=== PATIENT | male | born 1970 | race Caucasian/White ===

== ENCOUNTER 2021-11-04 14:03 | Outpatient (CLI) | payer MEDICARE, OTHER, SELFPAY | END 2021-11-04 14:04 | disposition home or self-care (01) | LOC: AMB 11-10 11:17 | PROVIDERS: Visit Provider Family Medicine | DX: R10.9 Unspecified abdominal pain (principal) | CPT/HCPCS: A0425; A0427 ==

== ENCOUNTER 2021-11-23 18:59 | Emergency (ER) | payer MEDICARE, OTHER, SELFPAY | END 2021-11-23 20:51 | disposition left against medical advice (07) | PROVIDERS: Emergency Provider Family Medicine | DX: Z53.21 Procedure and treatment not carried out due to patient leaving prior to being seen by health care provider (principal) | CPT/HCPCS: 99281 ==

== ENCOUNTER 2021-11-25 13:00 | Outpatient (CLI) | payer MEDICARE, OTHER, SELFPAY | END 2021-11-25 13:01 | disposition home or self-care (01) | LOC: AMB 12-09 12:48 | PROVIDERS: Visit Provider Family Medicine | DX: R10.9 Unspecified abdominal pain (principal) | CPT/HCPCS: A0425; A0433 ==

== ENCOUNTER 2021-12-25 09:05 | Outpatient (CLI) | payer MEDICARE, OTHER, SELFPAY | END 2021-12-25 09:06 | disposition home or self-care (01) | LOC: AMB 12-27 16:40 | PROVIDERS: Visit Provider Family Medicine | DX: R10.9 Unspecified abdominal pain (principal) | CPT/HCPCS: A0425; A0433 ==

== ENCOUNTER 2021-12-26 23:07 | Outpatient (CLI) | payer MEDICARE, OTHER, SELFPAY | END 2021-12-26 23:08 | disposition home or self-care (01) | LOC: AMB 12-29 05:30 | PROVIDERS: Visit Provider Family Medicine | DX: R07.89 Other chest pain (principal) | CPT/HCPCS: A0425; A0427 ==

== ENCOUNTER 2021-12-26 23:30 | Emergency (ER) | payer MEDICARE, OTHER, SELFPAY ==
[2021-12-26 23:36] VITALS: BP 153/89; PULSE 82; RESP 18; TEMP 36.4; O2SAT 100
--- NOTE | 2021-12-27 00:01 | ED.CHESTPAIN ---
HPI - Chest Pain General Chief Complaint: Chest Pain Stated Complaint: chest pain Time Seen by Provider: 12/26/21 23:48 History of Present Illness HPI narrative: 51-year-old man presenting to the emergency department via EMS with complaint of left-sided chest pain. This was relatively sudden onset. Sharp pain. He had taken some lorazepam earlier in the day but did not think that really helped. Sounds as though this was taken for anxiety but not chest pain at that time. With his episode of pain subsequently his heart started beating really fast which he would associate with exacerbating anxiety. He took hydroxyzine and feels like it settled down now but still present. When he had 1 big shock of pain he had gone to talk to his son to call for the ambulance. Recently diagnosed with Clostridium difficile. Underlying history of renal failure with dialysis fistula which he thinks might actually be the cause of his pain. Has had pain complaints related to his fistula before. He has had historically pain in this left upper chest blamed apparently on scar tissue from procedures in the vicinity. This pain is more than maybe he has experienced before. No known cardiovascular disease he says. Feels better to push on it. Not actually short of breath. Pain is not clearly pleuritic. While I am examining him he is reporting shocks of pain from the left upper outer chest to the shoulder at times. Does not feel like he needs anything more for pain or anxiety but thought he should just be cautious regarding his heart. Related Data Home Medications Medication Instructions Recorded Confirmed amlodipine 10 mg tablet mg 12/26/21 atorvastatin 40 mg tablet mg 12/26/21 cyclobenzaprine 10 mg tablet mg 12/26/21 diclofenac sodium 1 % topical gel topical 12/26/21 ferric citrate 210 mg iron tablet 12/26/21 (Auryxia) fidaxomicin 200 mg tablet (Dificid) mg 12/26/21 fluoxetine 10 mg capsule mg 12/26/21 hydroxyzine pamoate 25 mg capsule mg 12/26/21 lidocaine-prilocaine 2.5 %-2.5 % 12/26/21 topical cream lorazepam 0.5 mg tablet mg 12/26/21 metoclopramide HCl 5 mg tablet mg 12/26/21 metoprolol tartrate 25 mg tablet mg 12/26/21 ondansetron 8 mg disintegrating mg 12/26/21 tablet oxycodone 5 mg tablet mg 12/26/21 polyethylene glycol 3350 17 g 12/26/21 gram/dose oral powder sennosides 8.6 mg tablet (Suyapa-ulysses) mg 12/26/21 sevelamer carbonate 800 mg tablet mg 12/26/21 vancomycin 125 mg capsule mg 12/26/21 vit B,C-folic ac 800 mcg-zinc 12.5 tab 12/26/21 mg-selen-D3 2,000 unit-vit E tablet (RenaPlex-D) Allergies Allergy/AdvReac Type Severity Reaction Status Date / Time lisinopril Allergy Severe angioedema Verified 12/27/21 02:40 Penicillins Allergy Unknown Verified 12/27/21 02:40 hydromorphone [From Dilaudid] AdvReac nausea/vomi Verified 12/27/21 02:40 ting Review of Systems Status of ROS Reports: 10 or more systems reviewed and unremarkable except as noted in History and below [facility] Medical History (Updated 12/27/21 @ 02:49 by Arthur Tanner MD) Abdominal pain Anxiety and depression Bilateral hip pain Chronic abdominal pain Chronic constipation Chronic pain of both shoulders Chronic thoracic back pain Enteritis ESRD on hemodialysis GERD (gastroesophageal reflux disease) Hematemesis History of colon cancer, stage III Hypertension Lumbar foraminal stenosis Malignant neoplasm of sigmoid colon Peripheral polyneuropathy Schmorl's node Secondary hyperparathyroidism (of renal origin) Spinal stenosis, lumbar region without neurogenic claudication Spondylosis of lumbar region without myelopathy or radiculopathy Type 2 diabetes, diet controlled Surgical History History of cholecystectomy History of colectomy Social History Smoking Status: Unknown if ever smoked Do you use any of these nicotine containing products: None How often do you have a drink containing alcohol: never How often do you have six or more drinks on one occasion: Never AUDIT-C Alcohol total score: 0 Non-prescribed substance use: marijuana (any form) Exam Narrative Exam Narrative: Breathing easily. Speaking easily. Wincing holding his left axillary chest with his right hand. Lungs appear to be clear. Skin with well-healed surgical scars in the area of pain. He has good pulses peripherally. Moving all extremities without difficulty. There is no edema. No erythema or swelling discretely. Fistula appears normal. Cardiovascular with regular rate and rhythm Const Vital Signs, click to edit/add: Vital Signs - 24 hr 12/26/21 23:36 12/27/21 01:17 Temperature 97.5 F L 97.5 F L Pulse Rate [Pulse Oximeter] 82 79 Respiratory Rate 18 18 Blood Pressure [153] 153/89 H 142/80 H Pulse Oximetry 100 100 Oxygen Delivery Method Room Air Room Air Documenting provider has reviewed patient's vital signs: yes Course Course Hospital Course: Slept during time in the emergency department. Had noted that he did not need anything for nausea or pain or anxiety. Vital Signs Vital signs: Initial Vital Signs Temperature 97.5 F L 12/26/21 23:36 Temperature Source Temporal Artery Scan 12/26/21 23:36 Pulse Rate 82 12/26/21 23:36 Pulse Rhythm 12/26/21 23:36 Respiratory Rate 18 12/26/21 23:36 Blood Pressure 153/89 H 12/26/21 23:36 Blood Pressure Mean 110 12/26/21 23:36 Blood Pressure Position Sitting 12/26/21 23:36 Pulse Oximetry 100 12/26/21 23:36 Oxygen Delivery Method 12/26/21 23:36 Vital Signs Temperature 97.5 F L 12/26/21 23:36 Pulse Rate 82 12/26/21 23:36 Respiratory Rate 18 12/26/21 23:36 Blood Pressure 153/89 H 12/26/21 23:36 Pulse Oximetry 100 12/26/21 23:36 Oxygen Delivery Method 12/26/21 23:36 Temperature 97.5 F L 12/27/21 06:46 Pulse Rate 79 12/27/21 06:46 Respiratory Rate 18 12/27/21 06:46 Blood Pressure 135/70 12/27/21 06:46 Pulse Oximetry 100 12/27/21 06:46 Oxygen Delivery Method 12/27/21 06:46 MDM - Chest Pain MDM Narrative Medical decision making narrative: Slept here. Repeat troponin still 0. EKG similar to prior. Medical Records Data Attestation: I reviewed the patient's medical records. Lab Data Attestation: I reviewed the patient's lab results. Labs: Lab Results 12/27/21 12/27/21 12/27/21 Range/Units 00:25 00:25 00:25 WBC 8.97 (4.50-11.00) K/uL RBC 2.97 L (4.30-5.90) m/uL Hgb 9.4 L (13.5-17.5) gm/dL Hct 29.3 L (37.0-53.0) % MCV 99 (80-100) fL MCH 32 (26-34) pg MCHC 32 (32-36) gm/dL RDW Coeff of Mike 13.9 (11.5-15.5) % Plt Count 172 (140-440) K/uL Neut % (Auto) 73.5 H (42.0-72.0) % Lymph % (Auto) 14.7 L (20-44) % [place] % (Auto) 8.2 (0.0-11.0) % Eos % (Auto) 2.9 (0.0-7.0) % Baso % (Auto) 0.4 (0.0-3.0) % Neut # (Auto) 6.60 (1.7-7.0) K/uL Lymph # (Auto) 1.30 (0.90-2.90) K/uL [place] # (Auto) 0.70 (0.00-0.90) K/UL Eos # (Auto) 0.26 (0.00-0.50) K/uL Baso # (Auto) 0.04 (0.00-0.30) K/uL Abs Immat Gran (auto) 0.03 (0.00-0.30) K/uL Sodium 135 (135-149) mmol/L Potassium 4.7 (3.6-5.1) mmol/L Chloride 96 (96-114) mmol/L Carbon Dioxide 32 (20-32) mmol/L BUN 31 H (7-30) mg/dL Creatinine 9.2 H (0.5-1.5) mg/dL Estimated GFR 6 ml/min Glucose 105 (60-115) mg/dL Calcium 9.6 (8.4-10.6) mg/dL Troponin I < 0.01 L (0.01-0.04) ng/mL C-Reactive Protein < 0.5 L (0.5-1.0) mg/dL POC Troponin I (0.01-0.04) ng/ml 12/27/21 12/27/21 Range/Units 00:25 02:18 WBC (4.50-11.00) K/uL RBC (4.30-5.90) m/uL Hgb (13.5-17.5) gm/dL Hct (37.0-53.0) % MCV (80-100) fL MCH (26-34) pg MCHC (32-36) gm/dL RDW Coeff of Mike (11.5-15.5) % Plt Count (140-440) K/uL Neut % (Auto) (42.0-72.0) % Lymph % (Auto) (20-44) % [place] % (Auto) (0.0-11.0) % Eos % (Auto) (0.0-7.0) % Baso % (Auto) (0.0-3.0) % Neut # (Auto) (1.7-7.0) K/uL Lymph # (Auto) (0.90-2.90) K/uL [place] # (Auto) (0.00-0.90) K/UL Eos # (Auto) (0.00-0.50) K/uL Baso # (Auto) (0.00-0.30) K/uL Abs Immat Gran (auto) (0.00-0.30) K/uL Sodium (135-149) mmol/L Potassium (3.6-5.1) mmol/L Chloride (96-114) mmol/L Carbon Dioxide (20-32) mmol/L BUN (7-30) mg/dL Creatinine (0.5-1.5) mg/dL Estimated GFR ml/min Glucose (60-115) mg/dL Calcium (8.4-10.6) mg/dL Troponin I (0.01-0.04) ng/mL C-Reactive Protein (0.5-1.0) mg/dL POC Troponin I 0.00 L 0.00 L (0.01-0.04) ng/ml Imaging Data Chest x-ray: Attestation: I have reviewed the pertinent imaging results. My impression: wnl ECG Data Attestation: I personally reviewed and interpreted this ECG as follows: (Normal sinus. Looks like an evolving right bundle branch block. Rate of 80) Discharge Plan Discharge Clinical Impression: Chest wall pain, Anxiety attack Patient Disposition: Home w/ Parent or Adult Condition: Improved Additional Instructions: Follow-up with nephrology as discussed to review fistula. Prescriptions: No Action cyclobenzaprine 10 mg tablet Label Comments: TAKE 1 TABLET (10 MG) BY MOUTH 3 TIMES DAILY IF NEEDED FOR MUSCLE SPASM. atorvastatin 40 mg tablet Label Comments: TAKE ONE TABLET BY MOUTH AT BEDTIME sennosides [Suyapa-ulysses] 8.6 mg tablet Label Comments: TAKE 1 TABLET (8.6 MG) BY MOUTH 2 TIMES DAILY. vancomycin 125 mg capsule Label Comments: TAKE ONE CAPSULE BY MOUTH FOUR TIMES A DAY ondansetron 8 mg tablet,disintegrating Label Comments: PLACE 1 TABLET (8MG) ON THE TONGUE EVERY 8 HOURS IF NEEDED FOR NAUSEA/VOMITING. lidocaine-prilocaine 2.5-2.5 % cream Label Comments: APPLY SMALL AMOUNT TO ACCESS SITE (AVF) 1 TO 2 HOURS BEFORE DIALYSIS. COVER WITH OCCLUSIVE DRESSING (SARAN WRAP) lorazepam 0.5 mg tablet Label Comments: TAKE ONE TABLET BY MOUTH ON DIALYSIS DAYS AND CAN TAKE TAKE ONE TABLET TWICE A DAY NEEDED ON NON-DIALYSIS DAYS FOR ANXIETY metoclopramide HCl 5 mg tablet Label Comments: TAKE 1 TABLET (5 MG) BY MOUTH EVERY 6 HOURS IF NEEDED FOR NAUSEA/VOMITING. amlodipine 10 mg tablet Label Comments: TAKE ONE TABLET BY MOUTH ONCE DAILY fluoxetine 10 mg capsule Label Comments: TAKE 1 CAPSULE (10 MG) BY MOUTH ONCE DAILY. polyethylene glycol 3350 17 gram/dose powder Label Comments: MIX 1 SCOOP (17 G) IN LIQUID THEN TAKE BY MOUTH 2 TIMES DAILY IF NEEDED FOR CONSTIPATION. oxycodone 5 mg tablet hydroxyzine pamoate 25 mg capsule Label Comments: TAKE 1-2 CAPSULES (25-50 MG) BY MOUTH EVERY 6 HOURS IF NEEDED. metoprolol tartrate 25 mg tablet Label Comments: TAKE ONE TABLET BY MOUTH TWICE A DAY. ON DIALYSIS DAYS TAKE THIS AFTERWARDS sevelamer carbonate 800 mg tablet Label Comments: TAKE 4 TABLETS BY MOUTH THREE TIMES DAILY WITH MEALS AND 3 TABLETS TWICE DAILY WITH SNACKS diclofenac sodium 1 % gel TOPICAL Label Comments: APPLY 2 G TOPICALLY TO AFFECTED AREA(S) 4 TIMES DAILY. Dificid 200 mg tablet Label Comments: TAKE ONE TABLET BY MOUTH TWICE A DAY FOR 10 DAYS Auryxia 210 mg iron tablet Label Comments: TAKE 2 TABLETS BY MOUTH THREE TIMES A DAY WITH MEALS AND 1 TABLET TWICE A DAY WITH SNACKS. SWALLOW WHOLE, DO NOT CHEW OR CRUSH MEDICATION RenaPlex-D 800 mcg-12.5 mg -2,000 unit tablet Label Comments: TAKE 1 TABLET BY MOUTH EVERY DAY WITH THE EVENING MEAL Follow Up/Referrals: Provider,Not a Local [Primary Care Provider] - Stand Alone Forms: [facility] Info Instructions
--- NOTE | 2021-12-27 00:05 | CRLHL7_ITS ---
For Patients: As a result of the Century Cures Act, medical imaging exams and procedure reports are released immediately into your electronic medical record. You may view this report before your referring provider. If you have questions, please contact your health care provider. INDICATION: Chest pain. TECHNIQUE: Chest 1 view. COMPARISON: 04/30/2020. FINDINGS: Cardiovascular and mediastinum: Heart size and vasculature are normal in caliber and appearance. Lungs and pleural spaces: Lungs are clear. No sign of infiltrate or mass. No sign of pleural effusion. No pneumothorax. Bones and soft tissues: No significant findings. IMPRESSION: Negative chest. Dictated by Rodo Beckman MD @ 12/27/2021 12:35:47 AM (Electronically Signed)
[2021-12-27 00:34] LABS: Basophils Absolute Auto 0.04 K/uL (0.00-0.30); Basophils Percent Auto 0.4 % (0.0-3.0); Eosinophils Absolute Auto 0.26 K/uL (0.00-0.50); Eosinophils Percent Auto 2.9 % (0.0-7.0); Hematocrit 29.3 % (37.0-53.0); Hemoglobin* 9.4 gm/dL (13.5-17.5); Immature Granulocytes Abs Auto 0.03 K/uL (0.00-0.30); Lymphocytes Percent Auto 14.7 % (20-44); Mean Corpuscular HGB Conc 32 gm/dL (32-36); Mean Corpuscular Hemoglobin 32 pg (26-34); Mean Corpuscular Volume 99 fL (80-100); Monocytes Percent Auto 8.2 % (0.0-11.0); Neutrophils Percent Auto 73.5 % (42.0-72.0); Platelet Count* 172 K/uL (140-440); RDW Coefficient of Variation % 13.9 % (11.5-15.5); Red Blood Count 2.97 m/uL (4.30-5.90); White Blood Count* 8.97 K/uL (4.50-11.00)
[2021-12-27 00:38] LABS: Slide Review Reflex No
[2021-12-27 00:49] LABS: Chloride* 96 mmol/L (96-114); Potassium* 4.7 mmol/L (3.6-5.1); Sodium* 135 mmol/L (135-149)
[2021-12-27 00:51] LABS: Creatinine* 9.2 mg/dL (0.5-1.5); Estimated Glomerular Filt Rate 6 ml/min
[2021-12-27 00:52] LABS: Blood Urea Nitrogen* 31 mg/dL (7-30); Calcium* 9.6 mg/dL (8.4-10.6); Carbon Dioxide* 32 mmol/L (20-32); Glucose* 105 mg/dL (60-115)
[2021-12-27 01:00] LABS: C Reactive Protein* < 0.5 mg/dL (0.5-1.0)
[2021-12-27 01:17] VITALS: BP 142/80; PULSE 79; RESP 18; TEMP 36.4; O2SAT 100
[2021-12-27 01:24] LABS: Troponin I* < 0.01 ng/mL (0.01-0.04)
[2021-12-27 02:33] VITALS: BMI 22.3
[2021-12-27 06:46] VITALS: BP 135/70; PULSE 74; PULSE 79; RESP 18; TEMP 36.4; O2SAT 100
--- NOTE | 2021-12-27 07:08 | ED.NURSE ---
Report from JASMIN Guerra. Patient needs discharge instructions and a ride home. Patient sleeping on cot.
--- NOTE | 2021-12-27 07:37 | ED.NURSE ---
Marge called for patient to provide ride home. Patient leaves ED ambulatory, plan to follow up for fistulagram with lead sales consultant. No questions/concerns.
== END 2021-12-27 07:38 | disposition home or self-care (01) ==
PROVIDERS: Emergency Provider Family Medicine
DX: R07.89 Other chest pain (principal); F41.9 Anxiety disorder, unspecified
CPT/HCPCS: 36415; 71045; 80048; 84484; 85025; 86140; 93005; 99283

== ENCOUNTER 2022-03-05 12:53 | Outpatient (CLI) | payer MEDICARE, OTHER, SELFPAY | END 2022-03-05 12:54 | disposition home or self-care (01) | LOC: AMB 04-06 15:45 | PROVIDERS: Visit Provider Family Medicine | DX: R10.9 Unspecified abdominal pain (principal) | CPT/HCPCS: A0425; A0433 ==

== ENCOUNTER 2022-04-26 15:40 | Outpatient (CLI) | payer MEDICARE, OTHER, SELFPAY | END 2022-04-26 15:41 | disposition home or self-care (01) | LOC: AMB 04-30 12:02 | PROVIDERS: Visit Provider Family Medicine | DX: Z49.01 Encounter for fitting and adjustment of extracorporeal dialysis catheter (principal) | CPT/HCPCS: A0425; A0427 ==

== ENCOUNTER 2022-04-26 15:53 | Emergency (ER) | payer MEDICARE, OTHER, SELFPAY ==
[2022-04-26] VITALS (8 sets, daily range): BP systolic 157–171; BP diastolic 86–97; PULSE 68–80; RESP 18–20; TEMP 36.4; O2SAT 97–98; BMI 22.9
--- NOTE | 2022-04-26 16:10 | ED.NURSE ---
did look at fistula under dressing. bleeding started again and redressed with a coban and 4 by 4.
--- NOTE | 2022-04-26 16:10 | ED.NURSE ---
did redress fistula with 4 by 4 and coban. did spurt blood when looked at it. elevated left arm on pillows. was very anxious and wanted bp and anxiety med.
--- NOTE | 2022-04-26 16:12 | ED_ITS ---
HPI - Wound/Laceration General Time Seen by Provider: 16:12 Date Seen: 04/26/22 Chief Complaint: Laceration/Wound Stated Complaint: Bleeding Time Seen by Provider: 04/26/22 16:12 Source: patient, RN notes reviewed and old records reviewed Mode of arrival: ambulatory Limitations: no limitations History of Present Illness HPI narrative: Vik is a very pleasant 52-year-old gentleman currently on dialysis last dialysis this morning also with a history of hypertension and anxiety who comes to the emergency room for evaluation of bleeding from his fistula. Patient was noted to have had the onset of bleeding while coming home from dialysis. This has been ongoing and I did not initially see him on presentation but nursing states that he had blood squirting across the room. A pressure dressing has been placed at this time. Patient notes that he thinks this is likely because his blood pressure is elevated and he did not take his metoprolol or amlodipine this morning. He states that his anxiety is also increasing his blood pressure and he request Ativan 1 mg p.o. he has not had any fevers or chills. This has not happened to him in the past. He is feeling somewhat lightheaded. No shortness of breath. Related Data Home Medications Medication Instructions Recorded Confirmed amlodipine 10 mg tablet 10 mg PO DAILY 12/26/21 04/26/22 atorvastatin 40 mg tablet 40 mg PO DAILY 12/26/21 04/26/22 cyclobenzaprine 10 mg tablet 10 mg PO TID PRN 12/26/21 04/26/22 diclofenac sodium 1 % topical gel topical 12/26/21 ferric citrate 210 mg iron tablet 2 tab PO TID 12/26/21 04/26/22 (Auryxia) hydroxyzine pamoate 25 mg capsule 25 mg PO Q6-12H PRN 12/26/21 04/26/22 lidocaine-prilocaine 2.5 %-2.5 % 1 applic topical DAILY 12/26/21 04/26/22 topical cream lorazepam 0.5 mg tablet 0.5 mg PO Q12H PRN 12/26/21 04/26/22 metoprolol tartrate 25 mg tablet 25 mg PO Q12H 12/26/21 04/26/22 ondansetron 8 mg disintegrating 8 mg PO Q8H PRN 12/26/21 04/26/22 tablet oxycodone 5 mg tablet 5 mg PO PRN 12/26/21 polyethylene glycol 3350 17 17 g PO DAILY PRN 12/26/21 04/26/22 gram/dose oral powder sennosides 8.6 mg tablet (Suyapa-ulysses) 8.6 mg PO DAILY PRN 12/26/21 04/26/22 sevelamer carbonate 800 mg tablet 2,400 mg PO TID 12/26/21 04/26/22 vancomycin 125 mg capsule mg 12/26/21 vit B,C-folic ac 800 mcg-zinc 12.5 1 tab PO DAILY 12/26/21 04/26/22 mg-selen-D3 2,000 unit-vit E tablet (RenaPlex-D) Allergies Allergy/AdvReac Type Severity Reaction Status Date / Time lisinopril Allergy Severe angioedema Verified 12/27/21 02:40 Penicillins Allergy Unknown Verified 12/27/21 02:40 hydromorphone [From Dilaudid] AdvReac nausea/vomi Verified 12/27/21 02:40 ting Review of Systems Status of ROS: Reports: 6 or more systems reviewed and unremarkable except as noted in History and below Const: Denies: fever or chills Eyes: Denies: change in vision ENMT: Denies: difficulty swallowing Cardio: Reports: lightheadedness; Denies: chest pain, palpitations or shortness of breath with exertion Resp: Denies: shortness of breath or cough GI: Denies: abdominal pain, vomiting or difficulty swallowing PFSH PFSH Medical History Abdominal pain Anxiety and depression Bilateral hip pain Chronic abdominal pain Chronic constipation Chronic pain of both shoulders Chronic thoracic back pain Enteritis ESRD on hemodialysis GERD (gastroesophageal reflux disease) Hematemesis History of colon cancer, stage III Hypertension Lumbar foraminal stenosis Malignant neoplasm of sigmoid colon Peripheral polyneuropathy Schmorl's node Secondary hyperparathyroidism (of renal origin) Spinal stenosis, lumbar region without neurogenic claudication Spondylosis of lumbar region without myelopathy or radiculopathy Type 2 diabetes, diet controlled Surgical History History of cholecystectomy History of colectomy Social History Smoking Status: Unknown if ever smoked Do you use any of these nicotine containing products: None How often do you have a drink containing alcohol: never How often do you have six or more drinks on one occasion: Never AUDIT-C Alcohol total score: 0 Non-prescribed substance use: marijuana (any form) service: No Exam Narrative: Exam Narrative: Patient is alert and oriented. He is nontoxic in appearance. He has a pressure dressing over his left lower humerus. Patient noted to have visual pulsations of the fistula both proximal and distal to pressure dressing. He has palpable pulses distally to that. There is dried blood coming from beneath the bandage but I do not see any active oozing at this time. Heart with a regular rate and rhythm and lungs are clear bilaterally. Mentating normally. Moving all extremities. Const: Vital Signs, click to edit/add: Vital Signs - 24 hr 04/26/22 16:01 04/26/22 17:12 Temperature 97.6 F Pulse Rate 71 Pulse Rate [Pulse Oximeter] 80 Respiratory Rate 20 Blood Pressure [Ri ght Upper Arm] 163/94 H Pulse Oximetry 97 98 Oxygen Delivery Me thod Room Air Documenting provider has reviewed patient's vital signs: yes Course Course Hospital Course: Patient requests Ativan 1 mg. Initially request 0.5 but states they recently increased his amount 1 mg. Also requests his dose of amlodipine 10 mg and metoprolol 25 mg as he has not taken that yet today. Will check labs including a CBC, comprehensive panel and INR. Vital Signs Vital signs: Initial Vital Signs Temperature 97.6 F 04/26/22 16:01 Temperature Source Temporal Artery Scan 04/26/22 16:01 Pulse Rate 80 04/26/22 16:01 Respiratory Rate 20 04/26/22 16:01 Blood Pressure 163/94 H 04/26/22 16:01 Blood Pressure Mean 117 04/26/22 16:01 Pulse Oximetry 97 04/26/22 16:01 Oxygen Delivery Method 04/26/22 16:01 Vital Signs Temperature 97.6 F 04/26/22 16:01 Pulse Rate 80 04/26/22 16:01 Respiratory Rate 20 04/26/22 16:01 Blood Pressure 163/94 H 04/26/22 16:01 Pulse Oximetry 97 04/26/22 16:01 Oxygen Delivery Method 04/26/22 16:01 Temperature 97.6 F 04/26/22 16:01 Pulse Rate 71 04/26/22 17:12 Respiratory Rate 20 04/26/22 16:01 Blood Pressure 163/94 H 04/26/22 16:01 Pulse Oximetry 98 04/26/22 17:12 Oxygen Delivery Method 04/26/22 16:01 MDM - Wound/Laceration MDM Narrative Medical decision making narrative: 1. Dialysis site bleeding-pressure dressing in place. At this time no further bleeding. I hesitate to remove this bandage at this time because it has stop the bleeding. Distally his capillary refill is intact as is his pulse. I would recommend leaving this dressing in place. He may remove it later on tonight or 1st thing tomorrow morning but I would do that gently. He is to return to the emergency room for worsening symptoms. 2. Hypertension-will give amlodipine 10 mg, metoprolol 25 mg and Ativan 1 mg p.o.. 3. Disposition-home. Medical Records Attestation: I reviewed the patient's medical records. Lab Data Attestation: I reviewed the patient's lab results. Labs: Lab Results 04/26/22 04/26/22 04/26/22 Range/Units 16:43 16:43 16:43 WBC 6.47 (4.50-11.00) K/uL RBC 3.78 L (4.30-5.90) m/uL Hgb 12.1 L (13.5-17.5) gm/dL Hct 37.7 (37.0-53.0) % MCV 100 (80-100) fL MCH 32 (26-34) pg MCHC 32 (32-36) gm/dL RDW Coeff of Mike 14.6 (11.5-15.5) % Plt Count 167 (140-440) K/uL Neut % (Auto) 68.4 (42.0-72.0) % Lymph % (Auto) 19.3 L (20-44) % [place] % (Auto) 9.0 (0.0-11.0) % Eos % (Auto) 2.6 (0.0-7.0) % Baso % (Auto) 0.5 (0.0-3.0) % Neut # (Auto) 4.43 (1.7-7.0) K/uL Lymph # (Auto) 1.20 (0.90-2.90) K/uL [place] # (Auto) 0.60 (0.00-0.90) K/UL Eos # (Auto) 0.17 (0.00-0.50) K/uL Baso # (Auto) 0.03 (0.00-0.30) K/uL INR 0.90 L (0.91-1.10) Sodium 139 (135-149) mmol/L Potassium 5.0 (3.6-5.1) mmol/L Chloride 104 (96-114) mmol/L Carbon Dioxide 27 (20-32) mmol/L BUN 20 (7-30) mg/dL Creatinine 7.8 H (0.5-1.5) mg/dL Estimated Creat Clear 9.75 Estimated GFR 8 ml/min Glucose 87 (60-115) mg/dL Calcium 9.2 (8.4-10.6) mg/dL Total Bilirubin 0.6 (0.1-1.5) mg/dL AST 41 H (12-35) U/L ALT 33 (4-50) U/L Alkaline Phosphatase 114 (40-150) U/L Total Protein 7.5 (6.0-8.3) g/dL Albumin 4.7 (3.3-5.0) g/dL Discharge Plan Discharge Clinical Impression: Dialysis AV fistula malfunction Patient Disposition: Home, Self-Care Condition: Improved Additional Instructions: Leave pressure dressing in place. If you feel that your arm is tingling or not getting enough circulation you may gently remove this bandage tonight. Otherwise leave in place until tomorrow morning and then gently remove it. Seek medical attention for worsening symptoms and ongoing bleeding. Return to the emergency room as needed. Prescriptions: No Action cyclobenzaprine 10 mg tablet 10 mg PO TID PRN Label Comments: TAKE 1 TABLET (10 MG) BY MOUTH 3 TIMES DAILY IF NEEDED FOR MUSCLE SPASM. atorvastatin 40 mg tablet 40 mg PO DAILY Label Comments: TAKE ONE TABLET BY MOUTH AT BEDTIME sennosides [Suyapa-ulysses] 8.6 mg tablet 8.6 mg PO DAILY PRN Label Comments: TAKE 1 TABLET (8.6 MG) BY MOUTH 2 TIMES DAILY. vancomycin 125 mg capsule Label Comments: TAKE ONE CAPSULE BY MOUTH FOUR TIMES A DAY ondansetron 8 mg tablet,disintegrating 8 mg PO Q8H PRN Label Comments: PLACE 1 TABLET (8MG) ON THE TONGUE EVERY 8 HOURS IF NEEDED FOR NAUSEA/VOMITING. lidocaine-prilocaine 2.5-2.5 % cream 1 applic topical DAILY Label Comments: APPLY SMALL AMOUNT TO ACCESS SITE (AVF) 1 TO 2 HOURS BEFORE DIALYSIS. COVER WITH OCCLUSIVE DRESSING (SARAN WRAP) lorazepam 0.5 mg tablet 0.5 mg PO Q12H PRN Label Comments: TAKE ONE TABLET BY MOUTH ON DIALYSIS DAYS AND CAN TAKE TAKE ONE TABLET TWICE A DAY NEEDED ON NON-DIALYSIS DAYS FOR ANXIETY amlodipine 10 mg tablet 10 mg PO DAILY Label Comments: TAKE ONE TABLET BY MOUTH ONCE DAILY polyethylene glycol 3350 17 gram/dose powder 17 g PO DAILY PRN Label Comments: MIX 1 SCOOP (17 G) IN LIQUID THEN TAKE BY MOUTH 2 TIMES DAILY IF NEEDED FOR CONSTIPATION. oxycodone 5 mg tablet 5 mg PO PRN hydroxyzine pamoate 25 mg capsule 25 mg PO Q6-12H PRN Label Comments: TAKE 1-2 CAPSULES (25-50 MG) BY MOUTH EVERY 6 HOURS IF NEEDED. metoprolol tartrate 25 mg tablet 25 mg PO Q12H Label Comments: TAKE ONE TABLET BY MOUTH TWICE A DAY. ON DIALYSIS DAYS TAKE THIS AFTERWARDS sevelamer carbonate 800 mg tablet 2,400 mg PO TID Label Comments: TAKE 4 TABLETS BY MOUTH THREE TIMES DAILY WITH MEALS AND 3 TABLETS TWICE DAILY WITH SNACKS diclofenac sodium 1 % gel TOPICAL Label Comments: APPLY 2 G TOPICALLY TO AFFECTED AREA(S) 4 TIMES DAILY. Auryxia 210 mg iron tablet 2 tab PO TID Label Comments: TAKE 2 TABLETS BY MOUTH THREE TIMES A DAY WITH MEALS AND 1 TABLET TWICE A DAY WITH SNACKS. SWALLOW WHOLE, DO NOT CHEW OR CRUSH MEDICATION RenaPlex-D 800 mcg-12.5 mg -2,000 unit tablet 1 tab PO DAILY Label Comments: TAKE 1 TABLET BY MOUTH EVERY DAY WITH THE EVENING MEAL Follow Up/Referrals: Provider,Not a Local [Referring] - Stand Alone Forms: [facility] Info Instructions
[2022-04-26] MEDS: LORazepam 1 MG TABLET PO (16:23)
[2022-04-26] MEDS: METOPROLOL TARTRATE 25 MG TABLET PO (16:23)
[2022-04-26] MEDS: AMLODIPINE 10 MG TABLET PO (16:28)
[2022-04-26 16:51] LABS: Basophils Absolute Auto 0.03 K/uL (0.00-0.30); Basophils Percent Auto 0.5 % (0.0-3.0); Eosinophils Absolute Auto 0.17 K/uL (0.00-0.50); Eosinophils Percent Auto 2.6 % (0.0-7.0); Hematocrit 37.7 % (37.0-53.0); Hemoglobin* 12.1 gm/dL (13.5-17.5); Immature Granulocytes Abs Auto 0.01 K/uL (0.00-0.30); Immature Granulocytes Pct Auto 0.2 %; Lymphocytes Percent Auto 19.3 % (20-44); Mean Corpuscular HGB Conc 32 gm/dL (32-36); Mean Corpuscular Hemoglobin 32 pg (26-34); Mean Corpuscular Volume 100 fL (80-100); Neutrophils Absolute Auto 4.43 K/uL (1.7-7.0); Neutrophils Percent Auto 68.4 % (42.0-72.0); Platelet Count* 167 K/uL (140-440); RDW Coefficient of Variation % 14.6 % (11.5-15.5); Red Blood Count 3.78 m/uL (4.30-5.90); White Blood Count* 6.47 K/uL (4.50-11.00)
[2022-04-26 16:55] LABS: Slide Review Reflex No
[2022-04-26 17:01] LABS: Albumin* 4.7 g/dL (3.3-5.0); Chloride* 104 mmol/L (96-114); Sodium* 139 mmol/L (135-149)
[2022-04-26 17:03] LABS: Creatinine* 7.8 mg/dL (0.5-1.5); Est. Creatinine Clearance* 9.75; Estimated Glomerular Filt Rate 8 ml/min
[2022-04-26 17:04] LABS: Alanine Aminotransferase* 33 U/L (4-50); Alkaline Phosphatase* 114 U/L (40-150); Aspartate Amino Transferase* 41 U/L (12-35); Bilirubin Total* 0.6 mg/dL (0.1-1.5); Blood Urea Nitrogen* 20 mg/dL (7-30); Calcium* 9.2 mg/dL (8.4-10.6); Carbon Dioxide* 27 mmol/L (20-32); Glucose* 87 mg/dL (60-115); Prothrombin Time 12.7 Seconds; Total Protein* 7.5 g/dL (6.0-8.3)
--- NOTE | 2022-04-26 18:00 | ED.NURSE ---
did loosen the tight pressure dressing and no bleeding noted. wants to go home. son is here. anxious to go home/
== END 2022-04-26 18:00 | disposition home or self-care (01) ==
PROVIDERS: Emergency Provider Family Medicine
DX: T82.590A Other mechanical complication of surgically created arteriovenous fistula, initial encounter (principal); I10 Essential (primary) hypertension
CPT/HCPCS: 36415; 80053; 85025; 85610; 99283; 99284; A9270

== ENCOUNTER 2022-05-26 18:02 | Outpatient (CLI) | payer MEDICARE, OTHER, SELFPAY | END 2022-05-26 18:03 | disposition home or self-care (01) | LOC: AMB 06-08 03:42 | PROVIDERS: Visit Provider Family Medicine | DX: R07.89 Other chest pain (principal) | CPT/HCPCS: A0425; A0427 ==

== ENCOUNTER 2022-05-26 18:34 | Emergency (ER) | payer MEDICARE, OTHER, SELFPAY ==
[2022-05-26] VITALS (8 sets, daily range): BP systolic 115–154; BP diastolic 64–87; PULSE 67–91; RESP 16–18; TEMP 36.6–36.9; O2SAT 99
--- NOTE | 2022-05-26 19:01 | XR_ITS ---
Patient: JETT FARRAR Facility:?[facility] Patient ID:?[id number] Site Patient ID:?[id number]. Site :?[id number] Study:?XRay-Chest PORTABLE-05/26/2022 7:15:03 PM Ordering Physician:?UNKNOWN UNKNOWN Final Report: INDICATION: Question her failure or worsening edema. TECHNIQUE: Chest 1 views. COMPARISON: Radiograph 12/27/2021. FINDINGS: Cardiovascular and mediastinum: Heart size and vasculature are normal in caliber and appearance. Lungs and pleural spaces: Pulmonary vasculature is within normal limits. No sign of infiltrate or mass. No sign of pleural effusion. No pneumothorax. Bones and soft tissues: No significant findings. IMPRESSION: No acute findings and no significant changes from the prior exam. Dictated by Faisal Elizabeth MD @ 05/26/2022 7:31:42 PM Signed by:?Faisal Elizabeth MD @05/26/2022 7:31:42 PM (Electronic Signature)
--- NOTE | 2022-05-26 19:04 | ED.GENADULT ---
HPI - General Adult General Time Seen by Provider: 19:04 <Rafat Caba MD - Last Filed: 05/27/22 09:57> Date Seen: 05/26/22 <Rafat Caba MD - Last Filed: 05/27/22 09:57> Chief complaint: Chest Pain <Rafat Caba MD - Last Filed: 05/27/22 09:57> Stated complaint: Chest Pain <Rafat Caba MD - Last Filed: 05/27/22 09:57> Time Seen by Provider: 05/26/22 18:49 <Rafat Caba MD - Last Filed: 05/27/22 09:57> Source: patient <Rafat Caba MD - Last Filed: 05/27/22 09:57> Mode of arrival: EMS <Rafat Caba MD - Last Filed: 05/27/22 09:57> History of Present Illness HPI narrative: Vik is a 52-year-old male past medical history includes end-stage renal disease on dialysis Tuesday, Tuesday and Tuesday and Anabela, hypertension, depression and anxiety presents emerged department via EMS with chest pain. Patient states he had dialysis this morning, he had a good run, he came home ate and had a nap, he woke up around 1 hour ago with some left-sided chest pain, he is out of his Ativan at home, he has had anxiety attacks in the past but never has chest pain with it. Patient denies any shortness of breath, cough fevers or chills, he has not had any nausea vomiting, lightheadedness or dizziness. No history of any CAD or stroke. He smokes 1 cigarette per day. Pain is sharp, no changes with inspiration, no radiation. No other concerns at this time. <Rafat Caba MD - Last Filed: 05/27/22 09:57> Related Data Home medications: Home Medications Medication Instructions Recorded Confirmed amlodipine 10 mg tablet 10 mg PO DAILY 12/26/21 04/26/22 atorvastatin 40 mg tablet 40 mg PO DAILY 12/26/21 04/26/22 cyclobenzaprine 10 mg tablet 10 mg PO TID PRN 12/26/21 04/26/22 diclofenac sodium 1 % topical gel topical 12/26/21 ferric citrate 210 mg iron tablet 2 tab PO TID 12/26/21 04/26/22 (Auryxia) hydroxyzine pamoate 25 mg capsule 25 mg PO Q6-12H PRN 12/26/21 04/26/22 lidocaine-prilocaine 2.5 %-2.5 % 1 applic topical DAILY 12/26/21 04/26/22 topical cream lorazepam 0.5 mg tablet 0.5 mg PO Q12H PRN 12/26/21 04/26/22 metoprolol tartrate 25 mg tablet 25 mg PO Q12H 12/26/21 04/26/22 ondansetron 8 mg disintegrating 8 mg PO Q8H PRN 12/26/21 04/26/22 tablet oxycodone 5 mg tablet 5 mg PO PRN 12/26/21 polyethylene glycol 3350 17 17 g PO DAILY PRN 12/26/21 04/26/22 gram/dose oral powder sennosides 8.6 mg tablet (Suyapa-ulysses) 8.6 mg PO DAILY PRN 12/26/21 04/26/22 sevelamer carbonate 800 mg tablet 2,400 mg PO TID 12/26/21 04/26/22 vancomycin 125 mg capsule mg 12/26/21 vit B,C-folic ac 800 mcg-zinc 12.5 1 tab PO DAILY 12/26/21 04/26/22 mg-selen-D3 2,000 unit-vit E tablet (RenaPlex-D) <Rafat Caba MD - Last Filed: 05/27/22 09:57> Allergies/adverse reactions: Allergies Allergy/AdvReac Type Severity Reaction Status Date / Time lisinopril Allergy Severe angioedema Verified 12/27/21 02:40 Penicillins Allergy Unknown Verified 12/27/21 02:40 hydromorphone [From Dilaudid] AdvReac nausea/vomi Verified 12/27/21 02:40 ting <Rafat Caba MD - Last Filed: 05/27/22 09:57> Review of Systems Status of ROS: Reports: 10 or more systems reviewed and unremarkable except as noted in History and below <Rafat Caba MD - Last Filed: 05/27/22 09:57> [facility] Medical History: Medical History Abdominal pain Anxiety and depression Bilateral hip pain Chronic abdominal pain Chronic constipation Chronic pain of both shoulders Chronic thoracic back pain Enteritis ESRD on hemodialysis GERD (gastroesophageal reflux disease) Hematemesis History of colon cancer, stage III Hypertension Lumbar foraminal stenosis Malignant neoplasm of sigmoid colon Peripheral polyneuropathy Schmorl's node Secondary hyperparathyroidism (of renal origin) Spinal stenosis, lumbar region without neurogenic claudication Spondylosis of lumbar region without myelopathy or radiculopathy Type 2 diabetes, diet controlled <Rafat Caba MD - Last Filed: 05/27/22 09:57> Surgical History: Surgical History History of cholecystectomy History of colectomy <Rafat Caba MD - Last Filed: 05/27/22 09:57> Social History: Social History Smoking Status: Unknown if ever smoked Do you use any of these nicotine containing products: None How often do you have a drink containing alcohol: never How often do you have six or more drinks on one occasion: Never AUDIT-C Alcohol total score: 0 Non-prescribed substance use: marijuana (any form) <Rafat Caba MD - Last Filed: 05/27/22 09:57> Exam Narrative: Exam Narrative: General: Patient is in mild distress sitting comfortably, nontoxic in appearance HEENT: Oral mucosa is moist, Lungs: Clear to auscultation bilaterally, no wheezing, or crackles. Heart: Normal sinus rhythm S1-S2 : Muscle skeletal : Dialysis fistula left Abdomen: Soft, nontender, bowel sounds present :Neuro awake and oriented x3 <Rafat Caba MD - Last Filed: 05/27/22 09:57> Const: Vital Signs, click to edit/add: Vital Signs - 24 hr 05/26/22 18:40 05/26/22 21:53 05/26/22 18:45 Temperature 97.8 F 97.8 F Pulse Rate [Right Pulse Oximeter] 91 81 Respiratory Rate 18 16 Blood Pressure [Ri ght Upper Arm] 154/87 H 139/77 Pulse Oximetry 99 99 Oxygen Delivery Me thod Room Air Room Air 05/26/22 19:00 05/26/22 20:00 05/26/22 21:00 Temperature Pulse Rate [Right Pulse Oximeter] 82 67 69 Respiratory Rate 18 18 18 Blood Pressure [Ri ght Upper Arm] 140/82 H 115/64 123/70 Pulse Oximetry 99 99 99 Oxygen Delivery Me thod Room Air Room Air Room Air 05/26/22 22:00 05/26/22 22:04 Temperature 98.4 F 98.4 F Pulse Rate [Right Pulse Oximeter] 71 71 Respiratory Rate 16 16 Blood Pressure [Ri ght Upper Arm] 120/70 120/70 Pulse Oximetry 99 Oxygen Delivery Me thod Room Air <Rafat Caba MD - Last Filed: 05/27/22 09:57> Vital Signs, click to edit/add: Vital Signs - 24 hr 05/26/22 18:40 05/26/22 21:53 05/26/22 18:45 Temperature 97.8 F 97.8 F Pulse Rate [Right Pulse Oximeter] 91 81 Respiratory Rate 18 16 Blood Pressure [Ri ght Upper Arm] 154/87 H 139/77 Pulse Oximetry 99 99 Oxygen Delivery Me thod Room Air Room Air 05/26/22 19:00 05/26/22 20:00 05/26/22 21:00 Temperature Pulse Rate [Right Pulse Oximeter] 82 67 69 Respiratory Rate 18 18 18 Blood Pressure [Ri ght Upper Arm] 140/82 H 115/64 123/70 Pulse Oximetry 99 99 99 Oxygen Delivery Me thod Room Air Room Air Room Air 05/26/22 22:00 05/26/22 22:04 Temperature 98.4 F 98.4 F Pulse Rate [Right Pulse Oximeter] 71 71 Respiratory Rate 16 16 Blood Pressure [Ri ght Upper Arm] 120/70 120/70 Pulse Oximetry 99 Oxygen Delivery Me thod Room Air <Gerald David MD - Last Filed: 05/26/22 21:52> Course Course Hospital Course: 7:00 PM: AIDET performed, workup will include IV peripheral, 0.5 mg IV Ativan, EKG at bedside shows a normal sinus rhythm with a left axis deviation, bpm 75, no ectopy or acute ST changes compared to previous, will obtain CBC, CMP and a portable chest x-ray. Plan to rule out any acute changes, likely rule out cardiac causes with 2 troponin levels, seems less likely ACS, from history more related to anxiety. Differential diagnosis include but not limited to IA/CAD, heart failure, costochondritis, pneumothorax, pneumonia, bronchitis, DVT, PE, aortic dissection as well as all etiologies. 7:45 PM: Patient is feeling better after above care given, pain is improved, vitals have been stable, still awaiting lab results, imaging showed no acute cardiopulmonary process. Will continue to monitor. <Rafat Caba MD - Last Filed: 05/27/22 09:57> Reevaluation(s) Reevaluation #1: Patient is signed over to me by for follow-up of 2nd troponin, EKG, 2nd troponin is 0 also. Done greater than 90 minutes after the 1st. EKG shows no acute changes. I did ask the nurse to do a COVID test on Mr. Thakkar to ensure that he does not have COVID, we can call him if it is positive, and tell him the treatment that we would suggest at that point. His vital signs remained stable, he is not tachycardic, he does not have any chest pain currently. Alert and oriented x3, vital signs remain normal, chest is clear bilaterally heart sounds are normal his abdomen is soft he is able to move all extremities. He is sweating, which makes me think he may be coming down with something. That is the reason that we did do a COVID swab on him. At this point, I think sending him home was a reasonable option. The re-presented here further issues or signs. <Gerald David MD - Last Filed: 05/26/22 21:52> Time: 21:50 <Gerald David MD - Last Filed: 05/26/22 21:52> Vital Signs Vital signs: Initial Vital Signs Temperature 97.8 F 05/26/22 18:40 Temperature Source Temporal Artery Scan 05/26/22 18:40 Pulse Rate 91 05/26/22 18:40 Respiratory Rate 18 05/26/22 18:40 Blood Pressure 154/87 H 05/26/22 18:40 Blood Pressure Mean 109 05/26/22 18:40 Blood Pressure Position Sitting 05/26/22 18:40 Pulse Oximetry 99 05/26/22 18:40 Oxygen Delivery Method 05/26/22 18:40 Vital Signs Temperature 97.8 F 05/26/22 18:40 Pulse Rate 91 05/26/22 18:40 Respiratory Rate 18 05/26/22 18:40 Blood Pressure 154/87 H 05/26/22 18:40 Pulse Oximetry 99 05/26/22 18:40 Oxygen Delivery Method 05/26/22 18:40 Temperature 98.4 F 05/26/22 22:04 Pulse Rate 71 05/26/22 22:04 Respiratory Rate 16 05/26/22 22:04 Blood Pressure 120/70 05/26/22 22:04 Pulse Oximetry 99 05/26/22 22:00 Oxygen Delivery Method 05/26/22 22:00 <Rafat Caba MD - Last Filed: 05/27/22 09:57> Initial Vital Signs Temperature 97.8 F 05/26/22 18:40 Temperature Source Temporal Artery Scan 05/26/22 18:40 Pulse Rate 91 05/26/22 18:40 Respiratory Rate 18 05/26/22 18:40 Blood Pressure 154/87 H 05/26/22 18:40 Blood Pressure Mean 109 05/26/22 18:40 Blood Pressure Position Sitting 05/26/22 18:40 Pulse Oximetry 99 05/26/22 18:40 Oxygen Delivery Method 05/26/22 18:40 Vital Signs Temperature 97.8 F 05/26/22 18:40 Pulse Rate 91 05/26/22 18:40 Respiratory Rate 18 05/26/22 18:40 Blood Pressure 154/87 H 05/26/22 18:40 Pulse Oximetry 99 05/26/22 18:40 Oxygen Delivery Method 05/26/22 18:40 Temperature 98.4 F 05/26/22 22:04 Pulse Rate 71 05/26/22 22:04 Respiratory Rate 16 05/26/22 22:04 Blood Pressure 120/70 05/26/22 22:04 Pulse Oximetry 99 05/26/22 22:00 Oxygen Delivery Method 05/26/22 22:00 <Gerald David MD - Last Filed: 05/26/22 21:52> Medical Decision Making MDM Narrative Medical decision making narrative: During the evaluation of this patient I considered multiple differential diagnosis is. The life-threatening differential diagnosis include coronary disease/IA, pulmonary embolism, pneumothorax, pneumonia, and aortic dissection. Other differential diagnosis included but were not limited to pericarditis, myocarditis, chest wall pain, GERD, esophageal rupture, rib fracture contusion, pleurisy, as well as other etiologies. <Gerald David MD - Last Filed: 05/26/22 21:52> Lab Data Labs: Lab Results 05/26/22 05/26/22 05/26/22 Range/Units 18:50 18:50 20:56 WBC 6.81 (4.50-11.00) K/uL RBC 3.28 L (4.30-5.90) m/uL Hgb 10.3 L (13.5-17.5) gm/dL Hct 32.6 L (37.0-53.0) % MCV 99 (80-100) fL MCH 31 (26-34) pg MCHC 32 (32-36) gm/dL RDW Coeff of Mike 14.4 (11.5-15.5) % Plt Count 203 (140-440) K/uL Neut % (Auto) 66.9 (42.0-72.0) % Lymph % (Auto) 18.6 L (20-44) % [place] % (Auto) 11.7 H (0.0-11.0) % Eos % (Auto) 2.1 (0.0-7.0) % Baso % (Auto) 0.3 (0.0-3.0) % Neut # (Auto) 4.55 (1.7-7.0) K/uL Lymph # (Auto) 1.30 (0.90-2.90) K/uL [place] # (Auto) 0.80 (0.00-0.90) K/UL Eos # (Auto) 0.14 (0.00-0.50) K/uL Baso # (Auto) 0.02 (0.00-0.30) K/uL Sodium 138 (135-149) mmol/L Potassium 5.0 (3.6-5.1) mmol/L Chloride 105 (96-114) mmol/L Carbon Dioxide 26 (20-32) mmol/L BUN 12 (7-30) mg/dL Creatinine 5.5 H (0.5-1.5) mg/dL Estimated GFR 12 ml/min Glucose 75 (60-115) mg/dL Calcium 9.0 (8.4-10.6) mg/dL Total Bilirubin 0.5 (0.1-1.5) mg/dL AST 66 H (12-35) U/L ALT 42 (4-50) U/L Alkaline Phosphatase 121 (40-150) U/L Troponin I < 0.01 L < 0.01 L (0.01-0.04) ng/mL Total Protein 7.1 (6.0-8.3) g/dL Albumin 4.3 (3.3-5.0) g/dL SARS-CoV-2 (PCR) (Negative) Influenza Type A (PCR) (Negative) Influenza Type B (PCR) (Negative) 05/26/22 Range/Units 21:42 WBC (4.50-11.00) K/uL RBC (4.30-5.90) m/uL Hgb (13.5-17.5) gm/dL Hct (37.0-53.0) % MCV (80-100) fL MCH (26-34) pg MCHC (32-36) gm/dL RDW Coeff of Mike (11.5-15.5) % Plt Count (140-440) K/uL Neut % (Auto) (42.0-72.0) % Lymph % (Auto) (20-44) % [place] % (Auto) (0.0-11.0) % Eos % (Auto) (0.0-7.0) % Baso % (Auto) (0.0-3.0) % Neut # (Auto) (1.7-7.0) K/uL Lymph # (Auto) (0.90-2.90) K/uL [place] # (Auto) (0.00-0.90) K/UL Eos # (Auto) (0.00-0.50) K/uL Baso # (Auto) (0.00-0.30) K/uL Sodium (135-149) mmol/L Potassium (3.6-5.1) mmol/L Chloride (96-114) mmol/L Carbon Dioxide (20-32) mmol/L BUN (7-30) mg/dL Creatinine (0.5-1.5) mg/dL Estimated GFR ml/min Glucose (60-115) mg/dL Calcium (8.4-10.6) mg/dL Total Bilirubin (0.1-1.5) mg/dL AST (12-35) U/L ALT (4-50) U/L Alkaline Phosphatase (40-150) U/L Troponin I (0.01-0.04) ng/mL Total Protein (6.0-8.3) g/dL Albumin (3.3-5.0) g/dL SARS-CoV-2 (PCR) Negative SARS-CoV-2 (Negative) Influenza Type A (PCR) Negative PCR FLU A (Negative) Influenza Type B (PCR) Negative PCR FLU B (Negative) <Rafat Caba MD - Last Filed: 05/27/22 09:57> Lab Results 05/26/22 05/26/22 05/26/22 Range/Units 18:50 18:50 20:56 WBC 6.81 (4.50-11.00) K/uL RBC 3.28 L (4.30-5.90) m/uL Hgb 10.3 L (13.5-17.5) gm/dL Hct 32.6 L (37.0-53.0) % MCV 99 (80-100) fL MCH 31 (26-34) pg MCHC 32 (32-36) gm/dL RDW Coeff of Mike 14.4 (11.5-15.5) % Plt Count 203 (140-440) K/uL Neut % (Auto) 66.9 (42.0-72.0) % Lymph % (Auto) 18.6 L (20-44) % [place] % (Auto) 11.7 H (0.0-11.0) % Eos % (Auto) 2.1 (0.0-7.0) % Baso % (Auto) 0.3 (0.0-3.0) % Neut # (Auto) 4.55 (1.7-7.0) K/uL Lymph # (Auto) 1.30 (0.90-2.90) K/uL [place] # (Auto) 0.80 (0.00-0.90) K/UL Eos # (Auto) 0.14 (0.00-0.50) K/uL Baso # (Auto) 0.02 (0.00-0.30) K/uL Sodium 138 (135-149) mmol/L Potassium 5.0 (3.6-5.1) mmol/L Chloride 105 (96-114) mmol/L Carbon Dioxide 26 (20-32) mmol/L BUN 12 (7-30) mg/dL Creatinine 5.5 H (0.5-1.5) mg/dL Estimated GFR 12 ml/min Glucose 75 (60-115) mg/dL Calcium 9.0 (8.4-10.6) mg/dL Total Bilirubin 0.5 (0.1-1.5) mg/dL AST 66 H (12-35) U/L ALT 42 (4-50) U/L Alkaline Phosphatase 121 (40-150) U/L Troponin I < 0.01 L < 0.01 L (0.01-0.04) ng/mL Total Protein 7.1 (6.0-8.3) g/dL Albumin 4.3 (3.3-5.0) g/dL SARS-CoV-2 (PCR) (Negative) Influenza Type A (PCR) (Negative) Influenza Type B (PCR) (Negative) 05/26/22 Range/Units 21:42 WBC (4.50-11.00) K/uL RBC (4.30-5.90) m/uL Hgb (13.5-17.5) gm/dL Hct (37.0-53.0) % MCV (80-100) fL MCH (26-34) pg MCHC (32-36) gm/dL RDW Coeff of Mike (11.5-15.5) % Plt Count (140-440) K/uL Neut % (Auto) (42.0-72.0) % Lymph % (Auto) (20-44) % [place] % (Auto) (0.0-11.0) % Eos % (Auto) (0.0-7.0) % Baso % (Auto) (0.0-3.0) % Neut # (Auto) (1.7-7.0) K/uL Lymph # (Auto) (0.90-2.90) K/uL [place] # (Auto) (0.00-0.90) K/UL Eos # (Auto) (0.00-0.50) K/uL Baso # (Auto) (0.00-0.30) K/uL Sodium (135-149) mmol/L Potassium (3.6-5.1) mmol/L Chloride (96-114) mmol/L Carbon Dioxide (20-32) mmol/L BUN (7-30) mg/dL Creatinine (0.5-1.5) mg/dL Estimated GFR ml/min Glucose (60-115) mg/dL Calcium (8.4-10.6) mg/dL Total Bilirubin (0.1-1.5) mg/dL AST (12-35) U/L ALT (4-50) U/L Alkaline Phosphatase (40-150) U/L Troponin I (0.01-0.04) ng/mL Total Protein (6.0-8.3) g/dL Albumin (3.3-5.0) g/dL SARS-CoV-2 (PCR) Negative SARS-CoV-2 (Negative) Influenza Type A (PCR) Negative PCR FLU A (Negative) Influenza Type B (PCR) Negative PCR FLU B (Negative) <Gerald David MD - Last Filed: 05/26/22 21:52> Discharge Plan Discharge Clinical Impression: Atypical chest pain, Dialysis patient <Rafat Caba MD - Last Filed: 05/27/22 09:57> Condition: Stable <Rafat Caba MD - Last Filed: 05/27/22 09:57> Instructions: Noncardiac Chest Pain (ED), Hemodialysis (DC) <Rafat Caba MD - Last Filed: 05/27/22 09:57> Additional Instructions: Home rest, return if increasing chest pain shortness of breath or other issues. Fevers or chills would also prompt a re-evaluation <Rafat Caba MD - Last Filed: 05/27/22 09:57> Prescriptions: No Action cyclobenzaprine 10 mg tablet 10 mg PO TID PRN Label Comments: TAKE 1 TABLET (10 MG) BY MOUTH 3 TIMES DAILY IF NEEDED FOR MUSCLE SPASM. atorvastatin 40 mg tablet 40 mg PO DAILY Label Comments: TAKE ONE TABLET BY MOUTH AT BEDTIME sennosides [Suyapa-ulysses] 8.6 mg tablet 8.6 mg PO DAILY PRN Label Comments: TAKE 1 TABLET (8.6 MG) BY MOUTH 2 TIMES DAILY. vancomycin 125 mg capsule Label Comments: TAKE ONE CAPSULE BY MOUTH FOUR TIMES A DAY ondansetron 8 mg tablet,disintegrating 8 mg PO Q8H PRN Label Comments: PLACE 1 TABLET (8MG) ON THE TONGUE EVERY 8 HOURS IF NEEDED FOR NAUSEA/VOMITING. lidocaine-prilocaine 2.5-2.5 % cream 1 applic topical DAILY Label Comments: APPLY SMALL AMOUNT TO ACCESS SITE (AVF) 1 TO 2 HOURS BEFORE DIALYSIS. COVER WITH OCCLUSIVE DRESSING (SARAN WRAP) lorazepam 0.5 mg tablet 0.5 mg PO Q12H PRN Label Comments: TAKE ONE TABLET BY MOUTH ON DIALYSIS DAYS AND CAN TAKE TAKE ONE TABLET TWICE A DAY NEEDED ON NON-DIALYSIS DAYS FOR ANXIETY amlodipine 10 mg tablet 10 mg PO DAILY Label Comments: TAKE ONE TABLET BY MOUTH ONCE DAILY polyethylene glycol 3350 17 gram/dose powder 17 g PO DAILY PRN Label Comments: MIX 1 SCOOP (17 G) IN LIQUID THEN TAKE BY MOUTH 2 TIMES DAILY IF NEEDED FOR CONSTIPATION. oxycodone 5 mg tablet 5 mg PO PRN hydroxyzine pamoate 25 mg capsule 25 mg PO Q6-12H PRN Label Comments: TAKE 1-2 CAPSULES (25-50 MG) BY MOUTH EVERY 6 HOURS IF NEEDED. metoprolol tartrate 25 mg tablet 25 mg PO Q12H Label Comments: TAKE ONE TABLET BY MOUTH TWICE A DAY. ON DIALYSIS DAYS TAKE THIS AFTERWARDS sevelamer carbonate 800 mg tablet 2,400 mg PO TID Label Comments: TAKE 4 TABLETS BY MOUTH THREE TIMES DAILY WITH MEALS AND 3 TABLETS TWICE DAILY WITH SNACKS diclofenac sodium 1 % gel TOPICAL Label Comments: APPLY 2 G TOPICALLY TO AFFECTED AREA(S) 4 TIMES DAILY. Auryxia 210 mg iron tablet 2 tab PO TID Label Comments: TAKE 2 TABLETS BY MOUTH THREE TIMES A DAY WITH MEALS AND 1 TABLET TWICE A DAY WITH SNACKS. SWALLOW WHOLE, DO NOT CHEW OR CRUSH MEDICATION RenaPlex-D 800 mcg-12.5 mg -2,000 unit tablet 1 tab PO DAILY Label Comments: TAKE 1 TABLET BY MOUTH EVERY DAY WITH THE EVENING MEAL <Rafat Caba MD - Last Filed: 05/27/22 09:57> Follow Up/Referrals: Antonietta Lombardo MD [Primary Care Provider] - <Rafat Caba MD - Last Filed: 05/27/22 09:57> Stand Alone Forms: [facility] Info Instructions <Rafat Caba MD - Last Filed: 05/27/22 09:57>
[2022-05-26] MEDS: LORazepam 2 MG/ML inj 0.5 MG IVP (19:07)
[2022-05-26 20:31] LABS: Basophils Absolute Auto 0.02 K/uL (0.00-0.30); Basophils Percent Auto 0.3 % (0.0-3.0); Eosinophils Absolute Auto 0.14 K/uL (0.00-0.50); Eosinophils Percent Auto 2.1 % (0.0-7.0); Hematocrit 32.6 % (37.0-53.0); Hemoglobin* 10.3 gm/dL (13.5-17.5); Immature Granulocytes Abs Auto 0.03 K/uL (0.00-0.30); Immature Granulocytes Pct Auto 0.4 %; Lymphocytes Percent Auto 18.6 % (20-44); Mean Corpuscular HGB Conc 32 gm/dL (32-36); Mean Corpuscular Hemoglobin 31 pg (26-34); Mean Corpuscular Volume 99 fL (80-100); Monocytes Percent Auto 11.7 % (0.0-11.0); Neutrophils Absolute Auto 4.55 K/uL (1.7-7.0); Neutrophils Percent Auto 66.9 % (42.0-72.0); Platelet Count* 203 K/uL (140-440); RDW Coefficient of Variation % 14.4 % (11.5-15.5); Red Blood Count 3.28 m/uL (4.30-5.90); White Blood Count* 6.81 K/uL (4.50-11.00)
[2022-05-26 20:33] LABS: Albumin* 4.3 g/dL (3.3-5.0); Chloride* 105 mmol/L (96-114)
[2022-05-26 20:34] LABS: Sodium* 138 mmol/L (135-149)
[2022-05-26 20:36] LABS: Bilirubin Total* 0.5 mg/dL (0.1-1.5); Carbon Dioxide* 26 mmol/L (20-32); Creatinine* 5.5 mg/dL (0.5-1.5); Estimated Glomerular Filt Rate 12 ml/min; Total Protein* 7.1 g/dL (6.0-8.3)
[2022-05-26 20:37] LABS: Alanine Aminotransferase* 42 U/L (4-50); Alkaline Phosphatase* 121 U/L (40-150); Aspartate Amino Transferase* 66 U/L (12-35); Blood Urea Nitrogen* 12 mg/dL (7-30); Glucose* 75 mg/dL (60-115)
[2022-05-26 20:42] LABS: Slide Review Reflex No
[2022-05-26 20:54] LABS: Troponin I* < 0.01 ng/mL (0.01-0.04)
[2022-05-26 21:42] LABS: Troponin I* < 0.01 ng/mL (0.01-0.04)
[2022-05-26] MEDS: ACETAMINOPHEN 500 MG TABLET 1000 MG PO (21:53)
[2022-05-26 22:33] LABS: PCR FLU A Negative PCR FLU A (Negative); PCR FLU B Negative PCR FLU B (Negative)
[2022-05-26 22:58] LABS: SARS PCR* Negative SARS-CoV-2 (Negative)
== END 2022-05-26 22:07 | disposition home or self-care (01) ==
PROVIDERS: Student in an Organized Health Care Education/Training Program; Emergency Provider Family Medicine
DX: R07.89 Other chest pain (principal); Z99.2 Dependence on renal dialysis
CPT/HCPCS: 36415; 71045; 80053; 84484; 85025; 87631; 96374; 99283; 99284; A9270; J2060

== ENCOUNTER 2022-08-15 17:10 | Emergency (ER) | payer MEDICARE, OTHER, SELFPAY ==
[2022-08-15 17:35] VITALS: BP 114/68; PULSE 73; RESP 20; TEMP 36.6; O2SAT 99; BMI 24.1
--- NOTE | 2022-08-15 18:07 | ED.GENADULT ---
HPI - General Adult General Chief complaint: Abdominal Pain Stated complaint: Back and Stomach Pain Time Seen by Provider: 08/15/22 17:38 Source: patient Mode of arrival: ambulatory Limitations: no limitations History of Present Illness HPI narrative: 52-year-old male with a very complicated medical history presenting with back pain, abdominal pain and diarrhea. Patient has a history of recurrent C diff colitis and he feels like his colitis is back. He does have chronic back pain and states he is having exacerbation of his chronic discomfort. He states that his diarrhea started today he has had 5 bowel movements and he has abdominal cramping every time he has diarrhea. He denies any fevers or chills. No blood in his stools. No urinary symptoms. No vomiting. He does feel nauseated. Related Data Home Medications Medication Instructions Recorded Confirmed amlodipine 10 mg tablet 10 mg PO DAILY 12/26/21 08/15/22 atorvastatin 40 mg tablet 40 mg PO DAILY 12/26/21 08/15/22 cyclobenzaprine 10 mg tablet 10 mg PO TID PRN 12/26/21 08/15/22 diclofenac sodium 1 % topical gel topical 12/26/21 ferric citrate 210 mg iron tablet 2 tab PO TID 12/26/21 04/26/22 (Auryxia) hydroxyzine pamoate 25 mg capsule 25 mg PO Q6-12H PRN 12/26/21 08/15/22 lidocaine-prilocaine 2.5 %-2.5 % 1 applic topical DAILY 12/26/21 04/26/22 topical cream lorazepam 0.5 mg tablet 0.5 mg PO Q12H PRN 12/26/21 08/15/22 metoprolol tartrate 25 mg tablet 25 mg PO Q12H 12/26/21 08/15/22 ondansetron 8 mg disintegrating 8 mg PO Q8H PRN 12/26/21 08/15/22 tablet oxycodone 5 mg tablet 5 mg PO PRN 12/26/21 polyethylene glycol 3350 17 17 g PO DAILY PRN 12/26/21 04/26/22 gram/dose oral powder sennosides 8.6 mg tablet (Suyapa-ulysses) 8.6 mg PO DAILY PRN 12/26/21 04/26/22 sevelamer carbonate 800 mg tablet 2,400 mg PO TID 12/26/21 08/15/22 vancomycin 125 mg capsule mg 12/26/21 vit B,C-folic ac 800 mcg-zinc 12.5 1 tab PO DAILY 12/26/21 04/26/22 mg-selen-D3 2,000 unit-vit E tablet (RenaPlex-D) Allergies Allergy/AdvReac Type Severity Reaction Status Date / Time lisinopril Allergy Severe angioedema Verified 12/27/21 02:40 Penicillins Allergy Unknown Verified 12/27/21 02:40 hydromorphone [From Dilaudid] AdvReac nausea/vomi Verified 12/27/21 02:40 ting Review of Systems Status of ROS: Reports: 10 or more systems reviewed and unremarkable except as noted in History and below PFSH [facility] Medical History Abdominal pain ?R10.9 - Unspecified abdominal pain (ICD-10) Anxiety and depression ?F41.9 - Anxiety disorder, unspecified (ICD-10) ?F32.A - Depression, unspecified (ICD-10) Bilateral hip pain ?M25.551 - Pain in right hip (ICD-10) ?M25.552 - Pain in left hip (ICD-10) Chronic abdominal pain ?R10.9 - Unspecified abdominal pain (ICD-10) ?G89.29 - Other chronic pain (ICD-10) Chronic constipation ?K59.09 - Other constipation (ICD-10) Chronic pain of both shoulders ?M25.511 - Pain in right shoulder (ICD-10) ?M25.512 - Pain in left shoulder (ICD-10) ?G89.29 - Other chronic pain (ICD-10) Chronic thoracic back pain ?M54.6 - Pain in thoracic spine (ICD-10) ?G89.29 - Other chronic pain (ICD-10) Enteritis ?K52.9 - Noninfective gastroenteritis and colitis, unspecified (ICD-10) ESRD on hemodialysis ?N18.6 - End stage renal disease (ICD-10) ?Z99.2 - Dependence on renal dialysis (ICD-10) GERD (gastroesophageal reflux disease) ?K21.9 - Gastro-esophageal reflux disease without esophagitis (ICD-10) Hematemesis ?K92.0 - Hematemesis (ICD-10) History of colon cancer, stage III ?Z85.038 - Personal history of other malignant neoplasm of large intestine (ICD-10) Hypertension ?I10 - Essential (primary) hypertension (ICD-10) Lumbar foraminal stenosis ?M48.061 - Spinal stenosis, lumbar region without neurogenic claudication (ICD-10) Malignant neoplasm of sigmoid colon ?C18.7 - Malignant neoplasm of sigmoid colon (ICD-10) Peripheral polyneuropathy ?G62.9 - Polyneuropathy, unspecified (ICD-10) Schmorl's node ?M51.9 - Unspecified thoracic, thoracolumbar and lumbosacral intervertebral disc disorder (ICD-10) Secondary hyperparathyroidism (of renal origin) ?N25.81 - Secondary hyperparathyroidism of renal origin (ICD-10) Spinal stenosis, lumbar region without neurogenic claudication ?M48.061 - Spinal stenosis, lumbar region without neurogenic claudication (ICD-10) Spondylosis of lumbar region without myelopathy or radiculopathy ?M47.816 - Spondylosis without myelopathy or radiculopathy, lumbar region (ICD-10) Type 2 diabetes, diet controlled ?E11.9 - Type 2 diabetes mellitus without complications (ICD-10) Surgical History History of cholecystectomy ?Z90.49 - Acquired absence of other specified parts of digestive tract (ICD-10) History of colectomy ?Z90.49 - Acquired absence of other specified parts of digestive tract (ICD-10) Social History Smoking Status: Unknown if ever smoked Do you use any of these nicotine containing products: None How often do you have a drink containing alcohol: never How often do you have six or more drinks on one occasion: Never AUDIT-C Alcohol total score: 0 Non-prescribed substance use: marijuana (any form) Exam Narrative: Exam Narrative: Well-nourished well-developed patient writhing in pain. Alert and oriented x3. Answers questions appropriately. Patient speaks in full sentences without needing to catch their breath. HEENT: Normocephalic atraumatic. Pupils are equally round reactive to light. Extraocular muscles are intact. Conjunctivae are moist without any icterus noted. Moist mucous membranes. Posterior pharynx is normal. Neck is soft without any lymphadenopathy or thyromegaly. No masses are appreciated. Cardiovascular: Heart is regular rate and rhythm S1 and S2 are present without any murmurs. Lungs: Clear to auscultation bilaterally no wheezes rhonchi or rales are appreciated. Patient takes deep breaths without any discomfort. Abdomen: Soft and nondistended with normal bowel sounds. No guarding or rebound. No masses or organomegaly appreciated. He has diffuse tenderness with a lot of discomfort in the epigastric region, however, he can be distracted. Extremities: Bilateral lower extremities are without edema. Av fistula in place. Skin: Well perfused without any obvious rashes. Const: Vital Signs, click to edit/add: Vital Signs - 24 hr 08/15/22 17:35 08/15/22 18:27 08/15/22 18:28 Temperature 98 F Pulse Rate [Pulse Oximeter] 73 76 Respiratory Rate 20 Blood Pressure [Ri ght Upper Arm] 114/68 137/79 Pulse Oximetry 99 99 98 Oxygen Delivery Me thod Room Air Room Air 08/15/22 18:53 Temperature Pulse Rate [Pulse Oximeter] 74 Respiratory Rate Blood Pressure [Ri ght Upper Arm] Pulse Oximetry 97 Oxygen Delivery Me thod Room Air Course Course Hospital Course: Patient's lab work was unremarkable aside from his kidney function which was expected. He does have dialysis tomorrow. He did feel better after a dose of IV morphine. He was not able to leave a stool sample while he was here. Vital Signs Vital signs: Initial Vital Signs Temperature 98 F 08/15/22 17:35 Temperature Source Temporal Artery Scan 08/15/22 17:35 Pulse Rate 73 08/15/22 17:35 Respiratory Rate 20 08/15/22 17:35 Blood Pressure 114/68 08/15/22 17:35 Blood Pressure Mean 83 08/15/22 17:35 Pulse Oximetry 99 08/15/22 17:35 Oxygen Delivery Method Room Air 08/15/22 17:35 Vital Signs Temperature 98 F 08/15/22 17:35 Pulse Rate 73 08/15/22 17:35 Respiratory Rate 20 08/15/22 17:35 Blood Pressure 114/68 08/15/22 17:35 Pulse Oximetry 99 08/15/22 17:35 Oxygen Delivery Method Room Air 08/15/22 17:35 Temperature 98 F 08/15/22 17:35 Pulse Rate 74 08/15/22 18:53 Respiratory Rate 20 08/15/22 17:35 Blood Pressure 137/79 08/15/22 18:27 Pulse Oximetry 97 08/15/22 18:53 Oxygen Delivery Method Room Air 08/15/22 18:53 Medical Decision Making MDM Narrative Medical decision making narrative: 52-year-old male with chronic pain, presenting with exacerbation of back pain and diarrhea. Patient will be sent home with a stool collecting kit so we can tested for C diff. patient was agreeable with this and had no other questions. Medical Records Medical records reviewed: Yes I reviewed the patient's medical records Lab Data Lab results reviewed: Yes I reviewed the patient's lab results Labs: Lab Results 08/15/22 Range/Units 18:00 WBC 6.97 (4.50-11.00) K/uL RBC 3.84 L (4.30-5.90) m/uL Hgb 12.4 L (13.5-17.5) gm/dL Hct 38.6 (37.0-53.0) % MCV 101 H (80-100) fL MCH 32 (26-34) pg MCHC 32 (32-36) gm/dL RDW Coeff of Mike 14.0 (11.5-15.5) % Plt Count 174 (140-440) K/uL Neut % (Auto) 63.7 (42.0-72.0) % Lymph % (Auto) 23.7 (20-44) % Hawkins % (Auto) 8.8 (0.0-11.0) % Eos % (Auto) 3.4 (0.0-7.0) % Baso % (Auto) 0.4 (0.0-3.0) % Neut # (Auto) 4.44 (1.7-7.0) K/uL Lymph # (Auto) 1.65 (0.90-2.90) K/uL Hawkins # (Auto) 0.60 (0.00-0.90) K/UL Eos # (Auto) 0.24 (0.00-0.50) K/uL Baso # (Auto) 0.03 (0.00-0.30) K/uL Sodium 137 (135-149) mmol/L Potassium 5.3 H (3.6-5.1) mmol/L Chloride 103 (96-114) mmol/L Carbon Dioxide 22 (20-32) mmol/L BUN 36 H (7-30) mg/dL Creatinine 12.7 H (0.5-1.5) mg/dL Estimated Creat Clear 5.99 Estimated GFR 4 ml/min Glucose 89 (60-115) mg/dL Lactate 0.8 (0.5-1.9) mmol/L Calcium 9.4 (8.4-10.6) mg/dL Total Bilirubin 0.5 (0.1-1.5) mg/dL Direct Bilirubin 0.5 (0.0-0.5) mg/dL AST 35 (12-35) U/L ALT 35 (4-50) U/L Alkaline Phosphatase 123 (40-150) U/L C-Reactive Protein 0.5 (0.5-1.0) mg/dL Total Protein 7.3 (6.0-8.3) g/dL Albumin 4.5 (3.3-5.0) g/dL Lipase 69 (23-300) U/L Discharge Plan Discharge Clinical Impression: Abdominal cramping, Back pain, Diarrhea Patient Disposition: Home, Self-Care Condition: Stable Additional Instructions: You will be sent home today with a stool collecting kit, return once you have had a bowel movement so we can test for C diff. Follow-up with your doctor as needed. Prescriptions: No Action cyclobenzaprine 10 mg tablet 10 mg PO TID PRN Patient Comments: TAKE 1 TABLET (10 MG) BY MOUTH 3 TIMES DAILY IF NEEDED FOR MUSCLE SPASM. atorvastatin 40 mg tablet 40 mg PO DAILY Patient Comments: TAKE ONE TABLET BY MOUTH AT BEDTIME sennosides [Suyapa-ulysses] 8.6 mg tablet 8.6 mg PO DAILY PRN Patient Comments: TAKE 1 TABLET (8.6 MG) BY MOUTH 2 TIMES DAILY. vancomycin 125 mg capsule Patient Comments: TAKE ONE CAPSULE BY MOUTH FOUR TIMES A DAY ondansetron 8 mg tablet,disintegrating 8 mg PO Q8H PRN Patient Comments: PLACE 1 TABLET (8MG) ON THE TONGUE EVERY 8 HOURS IF NEEDED FOR NAUSEA/VOMITING. lidocaine-prilocaine 2.5-2.5 % cream 1 applic topical DAILY Patient Comments: APPLY SMALL AMOUNT TO ACCESS SITE (AVF) 1 TO 2 HOURS BEFORE DIALYSIS. COVER WITH OCCLUSIVE DRESSING (SARAN WRAP) lorazepam 0.5 mg tablet 0.5 mg PO Q12H PRN Patient Comments: TAKE ONE TABLET BY MOUTH ON DIALYSIS DAYS AND CAN TAKE TAKE ONE TABLET TWICE A DAY NEEDED ON NON-DIALYSIS DAYS FOR ANXIETY amlodipine 10 mg tablet 10 mg PO DAILY Patient Comments: TAKE ONE TABLET BY MOUTH ONCE DAILY polyethylene glycol 3350 17 gram/dose powder 17 g PO DAILY PRN Patient Comments: MIX 1 SCOOP (17 G) IN LIQUID THEN TAKE BY MOUTH 2 TIMES DAILY IF NEEDED FOR CONSTIPATION. oxycodone 5 mg tablet 5 mg PO PRN hydroxyzine pamoate 25 mg capsule 25 mg PO Q6-12H PRN Patient Comments: TAKE 1-2 CAPSULES (25-50 MG) BY MOUTH EVERY 6 HOURS IF NEEDED. metoprolol tartrate 25 mg tablet 25 mg PO Q12H Patient Comments: TAKE ONE TABLET BY MOUTH TWICE A DAY. ON DIALYSIS DAYS TAKE THIS AFTERWARDS sevelamer carbonate 800 mg tablet 2,400 mg PO TID Patient Comments: TAKE 4 TABLETS BY MOUTH THREE TIMES DAILY WITH MEALS AND 3 TABLETS TWICE DAILY WITH SNACKS diclofenac sodium 1 % gel TOPICAL Patient Comments: APPLY 2 G TOPICALLY TO AFFECTED AREA(S) 4 TIMES DAILY. Auryxia 210 mg iron tablet 2 tab PO TID Patient Comments: TAKE 2 TABLETS BY MOUTH THREE TIMES A DAY WITH MEALS AND 1 TABLET TWICE A DAY WITH SNACKS. SWALLOW WHOLE, DO NOT CHEW OR CRUSH MEDICATION RenaPlex-D 800 mcg-12.5 mg -2,000 unit tablet 1 tab PO DAILY Patient Comments: TAKE 1 TABLET BY MOUTH EVERY DAY WITH THE EVENING MEAL Follow Up/Referrals: Antonietta Lombardo MD [Primary Care Provider] - Stand Alone [facility]
[2022-08-15] MEDS: MORPHINE 2 MG/ML inj 4 MG IVP (18:09)
[2022-08-15 18:11] LABS: Basophils Absolute Auto 0.03 K/uL (0.00-0.30); Basophils Percent Auto 0.4 % (0.0-3.0); Eosinophils Absolute Auto 0.24 K/uL (0.00-0.50); Eosinophils Percent Auto 3.4 % (0.0-7.0); Hematocrit 38.6 % (37.0-53.0); Hemoglobin* 12.4 gm/dL (13.5-17.5); Lactate* 0.8 mmol/L (0.5-1.9); Lymphocytes Absolute Auto 1.65 K/uL (0.90-2.90); Lymphocytes Percent Auto 23.7 % (20-44); Mean Corpuscular HGB Conc 32 gm/dL (32-36); Mean Corpuscular Hemoglobin 32 pg (26-34); Mean Corpuscular Volume 101 fL (80-100); Monocytes Percent Auto 8.8 % (0.0-11.0); Neutrophils Absolute Auto 4.44 K/uL (1.7-7.0); Neutrophils Percent Auto 63.7 % (42.0-72.0); Platelet Count* 174 K/uL (140-440); Red Blood Count 3.84 m/uL (4.30-5.90); White Blood Count* 6.97 K/uL (4.50-11.00)
[2022-08-15 18:12] LABS: Slide Review Reflex No
[2022-08-15 18:27] VITALS: BP 137/79; PULSE 76; O2SAT 99
[2022-08-15 18:28] VITALS: O2SAT 98
[2022-08-15 18:28] LABS: Albumin* 4.5 g/dL (3.3-5.0); Chloride* 103 mmol/L (96-114); Potassium* 5.3 mmol/L (3.6-5.1); Sodium* 137 mmol/L (135-149)
[2022-08-15 18:30] LABS: Creatinine* 12.7 mg/dL (0.5-1.5); Est. Creatinine Clearance* 5.99; Estimated Glomerular Filt Rate 4 ml/min
[2022-08-15 18:31] LABS: Alanine Aminotransferase* 35 U/L (4-50); Alkaline Phosphatase* 123 U/L (40-150); Aspartate Amino Transferase* 35 U/L (12-35); Bilirubin Direct* 0.5 mg/dL (0.0-0.5); Bilirubin Total* 0.5 mg/dL (0.1-1.5); Blood Urea Nitrogen* 36 mg/dL (7-30); Carbon Dioxide* 22 mmol/L (20-32); Glucose* 89 mg/dL (60-115); Lipase* 69 U/L (23-300); Total Protein* 7.3 g/dL (6.0-8.3)
[2022-08-15 18:32] LABS: Calcium* 9.4 mg/dL (8.4-10.6)
[2022-08-15 18:34] LABS: C Reactive Protein* 0.5 mg/dL (0.5-1.0)
[2022-08-15 18:53] VITALS: PULSE 74; O2SAT 97
[2022-08-17 14:18] LABS: CDIFFEPI 027 PRESUMPTIVE NEGATIVE (Negative)
[2022-08-17 14:31] LABS: C.Difficile POSITIVE (Negative)
== END 2022-08-15 19:24 | disposition home or self-care (01) ==
PROVIDERS: Emergency Provider Family Medicine
DX: R10.9 Unspecified abdominal pain (principal); M54.9 Dorsalgia, unspecified; R19.7 Diarrhea, unspecified
CPT/HCPCS: 36415; 80048; 80076; 83605; 83690; 85025; 86140; 87493; 94761; 96374; 99284; J2270

== ENCOUNTER 2022-08-18 09:44 | Emergency (ER) | payer MEDICARE, OTHER, SELFPAY ==
[2022-08-18] VITALS (24 sets, daily range): BP systolic 127–150; BP diastolic 75–88; PULSE 68–89; RESP 20; TEMP 36.4; O2SAT 97–100; BMI 23.8
--- NOTE | 2022-08-18 11:01 | CRLHL7_ITS ---
For Patients: As a result of the Century Cures Act, medical imaging exams and procedure reports are released immediately into your electronic medical record. You may view this report before your referring provider. If you have questions, please contact your health care provider. INDICATION: Abdominal pain/C diff. TECHNIQUE: CT abdomen and pelvis without contrast. COMPARISON: CT scan of the abdomen and pelvis 10/11/2021. FINDINGS: Lower chest: Unremarkable. Liver: Normal in size and attenuation. No suspicious masses. Gallbladder and bile ducts: Status post cholecystectomy. Pancreas: Unremarkable. No mass or inflammation. Spleen: Normal in size. No masses. Adrenal glands: Normal in size. No nodules. Kidneys: Bilateral renal atrophy with cysts, unchanged. No obstructing stone or hydronephrosis. GI tract: Rectosigmoid anastomosis, unchanged. The remainder of the colon is unremarkable. Normal stomach and small bowel. No bowel obstruction. No appendicitis. Vasculature: Severe atherosclerosis of the abdominal aorta and branch vessels. No aneurysm. Lymph nodes: Scattered small retroperitoneal lymph nodes, unchanged. No pathologically enlarged lymph nodes. Peritoneum/Abdominal Wall: Unremarkable. No sign of mass or infiltration. No free air or significant free fluid. Pelvis: Mild wall thickening of the urinary bladder is likely secondary to underdistention. Unremarkable prostate. Bones: Degenerative spondylosis of the lumbar spine, not significantly changed. IMPRESSION: 1. No acute abnormality. 2. Other nonemergent findings as detailed above. Please note that all CT scans at this facility use dose modulation, iterative reconstruction, and/or weight-based dosing when appropriate to reduce radiation dose to as low as reasonably achievable. Dictated by Edilberto Kruger MD @ 08/18/2022 2:26:43 PM (Electronically Signed)
--- NOTE | 2022-08-18 11:04 | ED.GENADULT ---
HPI - General Adult General Chief complaint: Abdominal Pain Stated complaint: Abdominal pain Time Seen by Provider: 08/18/22 10:57 History of Present Illness HPI narrative: Patient is a 52-year-old male who is on dialysis for read end-stage renal disease, was diagnosed with C diff a couple days ago has not started any antibiotics for C diff, apparently there was no vancomycin available which was called in orally for him. He is scheduled to go to dialysis today he does not feel short of breath he has had no breathing issues. He consents presents with significant abdominal pain. The patient has no fevers rigors night points to his periumbilical area as where his pain is he has had no other specific symptoms no chest pain no cough no breathing problem. He has had intermittent looser stools. No blood noted in his stool Related Data Home Medications Medication Instructions Recorded Confirmed amlodipine 10 mg tablet 10 mg PO DAILY 12/26/21 08/15/22 atorvastatin 40 mg tablet 40 mg PO DAILY 12/26/21 08/15/22 cyclobenzaprine 10 mg tablet 10 mg PO TID PRN 12/26/21 08/15/22 diclofenac sodium 1 % topical gel topical 12/26/21 ferric citrate 210 mg iron tablet 2 tab PO TID 12/26/21 04/26/22 (Auryxia) hydroxyzine pamoate 25 mg capsule 25 mg PO Q6-12H PRN 12/26/21 08/15/22 lidocaine-prilocaine 2.5 %-2.5 % 1 applic topical DAILY 12/26/21 04/26/22 topical cream lorazepam 0.5 mg tablet 0.5 mg PO Q12H PRN 12/26/21 08/15/22 metoprolol tartrate 25 mg tablet 25 mg PO Q12H 12/26/21 08/15/22 ondansetron 8 mg disintegrating 8 mg PO Q8H PRN 12/26/21 08/15/22 tablet oxycodone 5 mg tablet 5 mg PO PRN 12/26/21 polyethylene glycol 3350 17 17 g PO DAILY PRN 12/26/21 04/26/22 gram/dose oral powder sennosides 8.6 mg tablet (Suyapa-ulysses) 8.6 mg PO DAILY PRN 12/26/21 04/26/22 sevelamer carbonate 800 mg tablet 2,400 mg PO TID 12/26/21 08/15/22 vancomycin 125 mg capsule mg 12/26/21 vit B,C-folic ac 800 mcg-zinc 12.5 1 tab PO DAILY 12/26/21 04/26/22 mg-selen-D3 2,000 unit-vit E tablet (RenaPlex-D) Previous Rx's Medication Instructions Recorded vancomycin 125 mg capsule 125 mg PO QID #40 caps 08/17/22 (Vancocin) hydrocodone 5 mg-acetaminophen 325 1 tab PO Q8H PRN pain #10 tabs 08/18/22 mg tablet Allergies Allergy/AdvReac Type Severity Reaction Status Date / Time lisinopril Allergy Severe angioedema Verified 12/27/21 02:40 Penicillins Allergy Unknown Verified 12/27/21 02:40 hydromorphone [From Dilaudid] AdvReac nausea/vomi Verified 12/27/21 02:40 ting Review of Systems Status of ROS: Reports: 6 or more systems reviewed and unremarkable except as noted in History and below [facility] Medical History Abdominal pain ?R10.9 - Unspecified abdominal pain (ICD-10) Anxiety and depression ?F41.9 - Anxiety disorder, unspecified (ICD-10) ?F32.A - Depression, unspecified (ICD-10) Bilateral hip pain ?M25.551 - Pain in right hip (ICD-10) ?M25.552 - Pain in left hip (ICD-10) Chronic abdominal pain ?R10.9 - Unspecified abdominal pain (ICD-10) ?G89.29 - Other chronic pain (ICD-10) Chronic constipation ?K59.09 - Other constipation (ICD-10) Chronic pain of both shoulders ?M25.511 - Pain in right shoulder (ICD-10) ?M25.512 - Pain in left shoulder (ICD-10) ?G89.29 - Other chronic pain (ICD-10) Chronic thoracic back pain ?M54.6 - Pain in thoracic spine (ICD-10) ?G89.29 - Other chronic pain (ICD-10) Enteritis ?K52.9 - Noninfective gastroenteritis and colitis, unspecified (ICD-10) ESRD on hemodialysis ?N18.6 - End stage renal disease (ICD-10) ?Z99.2 - Dependence on renal dialysis (ICD-10) GERD (gastroesophageal reflux disease) ?K21.9 - Gastro-esophageal reflux disease without esophagitis (ICD-10) Hematemesis ?K92.0 - Hematemesis (ICD-10) History of colon cancer, stage III ?Z85.038 - Personal history of other malignant neoplasm of large intestine (ICD-10) Hypertension ?I10 - Essential (primary) hypertension (ICD-10) Lumbar foraminal stenosis ?M48.061 - Spinal stenosis, lumbar region without neurogenic claudication (ICD-10) Malignant neoplasm of sigmoid colon ?C18.7 - Malignant neoplasm of sigmoid colon (ICD-10) Peripheral polyneuropathy ?G62.9 - Polyneuropathy, unspecified (ICD-10) Schmorl's node ?M51.9 - Unspecified thoracic, thoracolumbar and lumbosacral intervertebral disc disorder (ICD-10) Secondary hyperparathyroidism (of renal origin) ?N25.81 - Secondary hyperparathyroidism of renal origin (ICD-10) Spinal stenosis, lumbar region without neurogenic claudication ?M48.061 - Spinal stenosis, lumbar region without neurogenic claudication (ICD-10) Spondylosis of lumbar region without myelopathy or radiculopathy ?M47.816 - Spondylosis without myelopathy or radiculopathy, lumbar region (ICD-10) Type 2 diabetes, diet controlled ?E11.9 - Type 2 diabetes mellitus without complications (ICD-10) Surgical History History of cholecystectomy ?Z90.49 - Acquired absence of other specified parts of digestive tract (ICD-10) History of colectomy ?Z90.49 - Acquired absence of other specified parts of digestive tract (ICD-10) Social History Smoking Status: Unknown if ever smoked Do you use any of these nicotine containing products: None How often do you have a drink containing alcohol: never How often do you have six or more drinks on one occasion: Never AUDIT-C Alcohol total score: 0 Non-prescribed substance use: marijuana (any form) Exam Narrative: Exam Narrative: Objective: The patient is alert orient x3 in mild distress and does abdominal discomfort Vital signs look unremarkable afebrile Abdomen soft mild epigastric tenderness no rebound, no distension pulses regular his extremities are without edema neurologic nonfocal he has an IV started as right arm Const: Vital Signs, click to edit/add: Vital Signs - 24 hr 08/18/22 09:54 08/18/22 11:00 08/18/22 10:00 Temperature 97.6 F Pulse Rate Pulse Rate [Right Pulse Oximeter] 89 85 Respiratory Rate 20 Blood Pressure Blood Pressure [Ri ght Upper Arm] 129/84 127/75 Pulse Oximetry 100 100 100 Oxygen Delivery Me thod Room Air Room Air 08/18/22 11:21 08/18/22 11:00 08/18/22 11:30 Temperature Pulse Rate 71 71 Pulse Rate [Right Pulse Oximeter] 68 Respiratory Rate Blood Pressure Blood Pressure [Ri ght Upper Arm] 140/88 H Pulse Oximetry 100 100 100 Oxygen Delivery Me thod Room Air 08/18/22 11:31 08/18/22 11:45 08/18/22 12:00 Temperature Pulse Rate 72 73 69 Pulse Rate [Right Pulse Oximeter] Respiratory Rate Blood Pressure 138/87 Blood Pressure [Ri ght Upper Arm] Pulse Oximetry 99 100 100 Oxygen Delivery Me thod 08/18/22 12:01 08/18/22 12:15 08/18/22 12:31 Temperature Pulse Rate 72 75 Pulse Rate [Right Pulse Oximeter] Respiratory Rate Blood Pressure 139/80 137/81 Blood Pressure [Ri ght Upper Arm] Pulse Oximetry 100 100 Oxygen Delivery Me thod 08/18/22 12:44 08/18/22 12:45 08/18/22 13:00 Temperature Pulse Rate 73 73 70 Pulse Rate [Right Pulse Oximeter] Respiratory Rate Blood Pressure Blood Pressure [Ri ght Upper Arm] Pulse Oximetry 97 100 100 Oxygen Delivery Me thod 08/18/22 13:02 08/18/22 13:15 08/18/22 13:30 Temperature Pulse Rate 69 69 70 Pulse Rate [Right Pulse Oximeter] Respiratory Rate Blood Pressure 141/78 H Blood Pressure [Ri ght Upper Arm] Pulse Oximetry 99 98 99 Oxygen Delivery Me thod 08/18/22 13:31 08/18/22 13:32 08/18/22 13:45 Temperature Pulse Rate 69 69 69 Pulse Rate [Right Pulse Oximeter] Respiratory Rate Blood Pressure 145/83 H Blood Pressure [Ri ght Upper Arm] Pulse Oximetry 99 99 99 Oxygen Delivery Me thod 08/18/22 14:00 08/18/22 14:01 08/18/22 14:24 Temperature Pulse Rate 71 72 70 Pulse Rate [Right Pulse Oximeter] Respiratory Rate Blood Pressure 150/88 H Blood Pressure [Ri ght Upper Arm] Pulse Oximetry 99 98 99 Oxygen Delivery Me thod 08/18/22 14:30 Temperature Pulse Rate 75 Pulse Rate [Right Pulse Oximeter] Respiratory Rate Blood Pressure Blood Pressure [Ri ght Upper Arm] Pulse Oximetry 100 Oxygen Delivery Me thod Course Vital Signs Vital signs: Initial Vital Signs Temperature 97.6 F 08/18/22 09:54 Temperature Source Temporal Artery Scan 08/18/22 09:54 Pulse Rate 89 08/18/22 09:54 Respiratory Rate 20 08/18/22 09:54 Blood Pressure 129/84 08/18/22 09:54 Blood Pressure Mean 99 08/18/22 09:54 Blood Pressure Position Sitting 08/18/22 09:54 Pulse Oximetry 100 08/18/22 09:54 Oxygen Delivery Method Room Air 08/18/22 09:54 Vital Signs Temperature 97.6 F 08/18/22 09:54 Pulse Rate 89 08/18/22 09:54 Respiratory Rate 20 08/18/22 09:54 Blood Pressure 129/84 08/18/22 09:54 Pulse Oximetry 100 08/18/22 09:54 Oxygen Delivery Method Room Air 08/18/22 09:54 Temperature 97.6 F 08/18/22 09:54 Pulse Rate 75 08/18/22 14:30 Respiratory Rate 20 08/18/22 09:54 Blood Pressure 150/88 H 08/18/22 14:01 Pulse Oximetry 100 08/18/22 14:30 Oxygen Delivery Method Room Air 08/18/22 11:00 Medical Decision Making MDM Narrative Medical decision making narrative: Patient is a 52-year-old male on end-stage renal disease with dialysis who presents with C diff and increased abdominal pain. I think at this point I would be reasonable to do a CT is abdomen. Will give him small amount of normal saline fluid, oral vancomycin to start. Small amount of narcotic pain medicine. Disposition pending his clinical response and CT and lab findings. Will check electrolytes and labs as well. If he improves in can tolerate oral medication he likely can go home and needs to follow-up with dialysis likely tomorrow. He was scheduled for dialysis today but does not appear to be having significant symptoms currently of volume overload. The if he does not improve then perhaps a day of hospitalization be appropriate for pain control and monitoring. disposition pending above. Addendum: Patient's CT scan looks unremarkable, his potassium is upper limit of normal at 5.2. Will contact dialysis about running again when able. He will be given a few [place] tablets for pain, occasionally gets OxyContin from his regular physician, but I think given his C diff and abdominal cramps I think it is reasonable to have some pain medication on board. He can talk to his regular doctor about further pills will give him 10 [place] . Call dialysis today and get a plan for follow-up dialysis. At this point he does not seem volume overloaded. Lab Data Labs: Lab Results 08/18/22 Range/Units 10:00 WBC 7.33 (4.50-11.00) K/uL RBC 3.95 L (4.30-5.90) m/uL Hgb 12.8 L (13.5-17.5) gm/dL Hct 39.6 (37.0-53.0) % MCV 100 (80-100) fL MCH 32 (26-34) pg MCHC 32 (32-36) gm/dL RDW Coeff of Mike 13.7 (11.5-15.5) % Plt Count 194 (140-440) K/uL Neut % (Auto) 60.4 (42.0-72.0) % Lymph % (Auto) 27.3 (20-44) % Webster % (Auto) 8.9 (0.0-11.0) % Eos % (Auto) 3.0 (0.0-7.0) % Baso % (Auto) 0.4 (0.0-3.0) % Neut # (Auto) 4.43 (1.7-7.0) K/uL Lymph # (Auto) 2.00 (0.90-2.90) K/uL Webster # (Auto) 0.70 (0.00-0.90) K/UL Eos # (Auto) 0.22 (0.00-0.50) K/uL Baso # (Auto) 0.03 (0.00-0.30) K/uL Sodium 132 L (135-149) mmol/L Potassium 5.2 H (3.6-5.1) mmol/L Chloride 96 (96-114) mmol/L Carbon Dioxide 24 (20-32) mmol/L BUN 26 (7-30) mg/dL Creatinine 11.3 H (0.5-1.5) mg/dL Estimated Creat Clear 6.73 Estimated GFR 5 ml/min Glucose 149 H (60-115) mg/dL Calcium 9.3 (8.4-10.6) mg/dL Total Bilirubin 0.5 (0.1-1.5) mg/dL Direct Bilirubin 0.5 (0.0-0.5) mg/dL AST 38 H (12-35) U/L ALT 36 (4-50) U/L Alkaline Phosphatase 124 (40-150) U/L C-Reactive Protein 0.5 (0.5-1.0) mg/dL Total Protein 7.4 (6.0-8.3) g/dL Albumin 4.5 (3.3-5.0) g/dL Amylase 131 H (18-89) U/L Discharge Plan Discharge Clinical Impression: Clostridium difficile infection, Abdominal pain, End stage kidney disease Patient Disposition: Home w/ Parent or Adult Condition: Improved Additional Instructions: Continue oral vancomycin at home, fluid diet and advance diet as tolerated, update dialysis clinic with situation. Likely will be able to dialyze tomorrow. Return if problems or concerns. pain med if needed Activity Level: Light activity Discharge Diet: Regular Prescriptions: New hydrocodone-acetaminophen 5-325 mg tablet 1 tab PO Q8H PRN (Reason: pain) Qty: 10 0RF No Action cyclobenzaprine 10 mg tablet 10 mg PO TID PRN Patient Comments: TAKE 1 TABLET (10 MG) BY MOUTH 3 TIMES DAILY IF NEEDED FOR MUSCLE SPASM. atorvastatin 40 mg tablet 40 mg PO DAILY Patient Comments: TAKE ONE TABLET BY MOUTH AT BEDTIME sennosides [Suyapa-ulysses] 8.6 mg tablet 8.6 mg PO DAILY PRN Patient Comments: TAKE 1 TABLET (8.6 MG) BY MOUTH 2 TIMES DAILY. vancomycin 125 mg capsule Patient Comments: TAKE ONE CAPSULE BY MOUTH FOUR TIMES A DAY ondansetron 8 mg tablet,disintegrating 8 mg PO Q8H PRN Patient Comments: PLACE 1 TABLET (8MG) ON THE TONGUE EVERY 8 HOURS IF NEEDED FOR NAUSEA/VOMITING. lidocaine-prilocaine 2.5-2.5 % cream 1 applic topical DAILY Patient Comments: APPLY SMALL AMOUNT TO ACCESS SITE (AVF) 1 TO 2 HOURS BEFORE DIALYSIS. COVER WITH OCCLUSIVE DRESSING (SARAN WRAP) lorazepam 0.5 mg tablet 0.5 mg PO Q12H PRN Patient Comments: TAKE ONE TABLET BY MOUTH ON DIALYSIS DAYS AND CAN TAKE TAKE ONE TABLET TWICE A DAY NEEDED ON NON-DIALYSIS DAYS FOR ANXIETY amlodipine 10 mg tablet 10 mg PO DAILY Patient Comments: TAKE ONE TABLET BY MOUTH ONCE DAILY polyethylene glycol 3350 17 gram/dose powder 17 g PO DAILY PRN Patient Comments: MIX 1 SCOOP (17 G) IN LIQUID THEN TAKE BY MOUTH 2 TIMES DAILY IF NEEDED FOR CONSTIPATION. oxycodone 5 mg tablet 5 mg PO PRN hydroxyzine pamoate 25 mg capsule 25 mg PO Q6-12H PRN Patient Comments: TAKE 1-2 CAPSULES (25-50 MG) BY MOUTH EVERY 6 HOURS IF NEEDED. metoprolol tartrate 25 mg tablet 25 mg PO Q12H Patient Comments: TAKE ONE TABLET BY MOUTH TWICE A DAY. ON DIALYSIS DAYS TAKE THIS AFTERWARDS sevelamer carbonate 800 mg tablet 2,400 mg PO TID Patient Comments: TAKE 4 TABLETS BY MOUTH THREE TIMES DAILY WITH MEALS AND 3 TABLETS TWICE DAILY WITH SNACKS diclofenac sodium 1 % gel TOPICAL Patient Comments: APPLY 2 G TOPICALLY TO AFFECTED AREA(S) 4 TIMES DAILY. Auryxia 210 mg iron tablet 2 tab PO TID Patient Comments: TAKE 2 TABLETS BY MOUTH THREE TIMES A DAY WITH MEALS AND 1 TABLET TWICE A DAY WITH SNACKS. SWALLOW WHOLE, DO NOT CHEW OR CRUSH MEDICATION RenaPlex-D 800 mcg-12.5 mg -2,000 unit tablet 1 tab PO DAILY Patient Comments: TAKE 1 TABLET BY MOUTH EVERY DAY WITH THE EVENING MEAL vancomycin [Vancocin] 125 mg capsule 125 mg PO QID Qty: 40 0RF Follow Up/Referrals: Antonietta Lombardo MD [Primary Care Provider] - Stand Alone Forms: [employer] Info Instructions
[2022-08-18 11:11] LABS: Basophils Absolute Auto 0.03 K/uL (0.00-0.30); Basophils Percent Auto 0.4 % (0.0-3.0); Eosinophils Absolute Auto 0.22 K/uL (0.00-0.50); Hematocrit 39.6 % (37.0-53.0); Hemoglobin* 12.8 gm/dL (13.5-17.5); Lymphocytes Percent Auto 27.3 % (20-44); Mean Corpuscular HGB Conc 32 gm/dL (32-36); Mean Corpuscular Hemoglobin 32 pg (26-34); Mean Corpuscular Volume 100 fL (80-100); Monocytes Percent Auto 8.9 % (0.0-11.0); Neutrophils Absolute Auto 4.43 K/uL (1.7-7.0); Neutrophils Percent Auto 60.4 % (42.0-72.0); Platelet Count* 194 K/uL (140-440); RDW Coefficient of Variation % 13.7 % (11.5-15.5); Red Blood Count 3.95 m/uL (4.30-5.90); White Blood Count* 7.33 K/uL (4.50-11.00)
[2022-08-18 11:14] LABS: Albumin* 4.5 g/dL (3.3-5.0); Chloride* 96 mmol/L (96-114)
[2022-08-18 11:15] LABS: Potassium* 5.2 mmol/L (3.6-5.1); Sodium* 132 mmol/L (135-149)
[2022-08-18] MEDS: MORPHINE 4 MG/ML INJ IVP ×2 (11:15→14:04)
[2022-08-18 11:16] LABS: Slide Review Reflex No
[2022-08-18 11:17] LABS: Amylase* 131 U/L (18-89)
[2022-08-18 11:18] LABS: Alanine Aminotransferase* 36 U/L (4-50); Alkaline Phosphatase* 124 U/L (40-150); Aspartate Amino Transferase* 38 U/L (12-35); Bilirubin Direct* 0.5 mg/dL (0.0-0.5); Bilirubin Total* 0.5 mg/dL (0.1-1.5); Blood Urea Nitrogen* 26 mg/dL (7-30); Calcium* 9.3 mg/dL (8.4-10.6); Carbon Dioxide* 24 mmol/L (20-32); Creatinine* 11.3 mg/dL (0.5-1.5); Est. Creatinine Clearance* 6.73; Estimated Glomerular Filt Rate 5 ml/min; Glucose* 149 mg/dL (60-115); Total Protein* 7.4 g/dL (6.0-8.3)
[2022-08-18 11:20] LABS: C Reactive Protein* 0.5 mg/dL (0.5-1.0)
[2022-08-18] MEDS: 0.9 % SODIUM CHLORIDE 250 ml 250 ML IV (12:53)
[2022-08-18] MEDS: VANCOMYCIN 125 MG CAPSULE PO (12:53)
== END 2022-08-18 15:39 | disposition home or self-care (01) ==
PROVIDERS: Emergency Provider Family Medicine
DX: N18.6 End stage renal disease (principal); A04.72 Enterocolitis due to Clostridium difficile, not specified as recurrent
CPT/HCPCS: 36415; 74176; 80048; 80076; 82150; 85025; 86140; 94761; 96374; 96376; 99284; 99285; J2270; J7050

== ENCOUNTER 2022-09-23 11:29 | Outpatient (CLI) | payer MEDICARE, OTHER, SELFPAY | END 2022-09-23 11:30 | disposition home or self-care (01) | LOC: AMB 09-28 16:18 | PROVIDERS: Visit Provider Internal Medicine | DX: N18.6 End stage renal disease (principal); R10.9 Unspecified abdominal pain; Z99.2 Dependence on renal dialysis | CPT/HCPCS: A0425; A0427; A0428 ==

== ENCOUNTER 2022-10-21 11:02 | Emergency (ER) | payer MEDICARE, OTHER, SELFPAY ==
[2022-10-21 11:09] VITALS: BP 104/66; PULSE 80; RESP 18; TEMP 36.7; O2SAT 99; BMI 24.6
[2022-10-21 12:20] LABS: Basophils Absolute Auto 0.03 K/uL (0.00-0.30); Basophils Percent Auto 0.3 % (0.0-3.0); Eosinophils Absolute Auto 0.23 K/uL (0.00-0.50); Eosinophils Percent Auto 2.7 % (0.0-7.0); Hematocrit 37.1 % (37.0-53.0); Hemoglobin* 11.9 gm/dL (13.5-17.5); Immature Granulocytes Abs Auto 0.01 K/uL (0.00-0.30); Immature Granulocytes Pct Auto 0.1 %; Lymphocytes Absolute Auto 1.99 K/uL (0.90-2.90); Lymphocytes Percent Auto 23.2 % (20-44); Mean Corpuscular HGB Conc 32 gm/dL (32-36); Mean Corpuscular Hemoglobin 32 pg (26-34); Mean Corpuscular Volume 99 fL (80-100); Monocytes Percent Auto 9.1 % (0.0-11.0); Neutrophils Absolute Auto 5.55 K/uL (1.7-7.0); Neutrophils Percent Auto 64.6 % (42.0-72.0); Platelet Count* 215 K/uL (140-440); RDW Coefficient of Variation % 14.6 % (11.5-15.5); Red Blood Count 3.75 m/uL (4.30-5.90); White Blood Count* 8.59 K/uL (4.50-11.00)
[2022-10-21 12:29] LABS: Slide Review Reflex No
[2022-10-21 12:31] LABS: Albumin* 4.6 g/dL (3.3-5.0)
[2022-10-21 12:32] LABS: Chloride* 96 mmol/L (96-114); Sodium* 135 mmol/L (135-149)
[2022-10-21 12:35] LABS: Alanine Aminotransferase* 29 U/L (4-50); Alkaline Phosphatase* 141 U/L (40-150); Aspartate Amino Transferase* 36 U/L (12-35); Bilirubin Direct* 0.5 mg/dL (0.0-0.5); Bilirubin Total* 0.6 mg/dL (0.1-1.5); Blood Urea Nitrogen* 38 mg/dL (7-30); Calcium* 9.6 mg/dL (8.4-10.6); Carbon Dioxide* 25 mmol/L (20-32); Glucose* 151 mg/dL (60-115); Lipase* 75 U/L (23-300); Total Protein* 7.5 g/dL (6.0-8.3)
[2022-10-21 12:53] LABS: Creatinine* 15.1 mg/dL (0.5-1.5); Est. Creatinine Clearance* 5.03; Estimated Glomerular Filt Rate 4 ml/min
[2022-10-21] MEDS: OXYCODONE 5 MG TABLET 10 MG PO (13:22)
--- NOTE | 2022-10-21 17:13 | ED_ITS ---
HPI - General Adult General Date Seen: 10/21/22 Chief complaint: Abdominal Pain Stated complaint: abdominal pain Time Seen by Provider: 10/21/22 11:31 Source: patient Mode of arrival: ambulatory Limitations: no limitations History of Present Illness HPI narrative: Patient is a 52-year-old male with multiple medical problems including end-stage renal disease on dialysis and recurrent Clostridium difficile colitis as well as hypertension and type 2 diabetes. Patient is a frequent visitor to the emergency department and comes in again today with complaints of diffuse abdominal pain and some loose stools. No blood in the stool. He was recently admitted to [facility] from 09/23/2022 through 09/24/2022 with recurrent Clostridium difficile colitis. This is been found to be resistant to both metronidazole and vancomycin. Most recently he was treated with fidaxomicin 200 mg b.i.d. times 10 days. He was well for about one week after completing the medication and then began having diffuse abdominal pain and loose stools again. He is scheduled for colonoscopy at [facility] next week because of his history of sigmoid colon cancer and a need to be cleared so he can get back on the transplant list. He yesterday his pain was severe to the point that he missed dialysis. He is on chronic oxycodone but has used up a few days early and cannot get it refilled until tomorrow. He is worried about his potassium after missing a dialysis run yesterday. No fevers or chills. Related Data Home Medications Medication Instructions Recorded Confirmed amlodipine 10 mg tablet 10 mg PO DAILY 12/26/21 08/15/22 atorvastatin 40 mg tablet 40 mg PO DAILY 12/26/21 08/15/22 cyclobenzaprine 10 mg tablet 10 mg PO TID PRN 12/26/21 08/15/22 diclofenac sodium 1 % topical gel topical 12/26/21 ferric citrate 210 mg iron tablet 2 tab PO TID 12/26/21 04/26/22 (Auryxia) hydroxyzine pamoate 25 mg capsule 25 mg PO Q6-12H PRN 12/26/21 08/15/22 lidocaine-prilocaine 2.5 %-2.5 % 1 applic topical DAILY 12/26/21 04/26/22 topical cream lorazepam 0.5 mg tablet 0.5 mg PO Q12H PRN 12/26/21 08/15/22 metoprolol tartrate 25 mg tablet 25 mg PO Q12H 12/26/21 08/15/22 ondansetron 8 mg disintegrating 8 mg PO Q8H PRN 12/26/21 08/15/22 tablet oxycodone 5 mg tablet 5 mg PO PRN 12/26/21 polyethylene glycol 3350 17 17 g PO DAILY PRN 12/26/21 04/26/22 gram/dose oral powder sennosides 8.6 mg tablet (Suyapa-ulysses) 8.6 mg PO DAILY PRN 12/26/21 04/26/22 sevelamer carbonate 800 mg tablet 2,400 mg PO TID 12/26/21 08/15/22 vancomycin 125 mg capsule mg 12/26/21 vit B,C-folic ac 800 mcg-zinc 12.5 1 tab PO DAILY 12/26/21 04/26/22 mg-selen-D3 2,000 unit-vit E tablet (RenaPlex-D) Previous Rx's Medication Instructions Recorded vancomycin 125 mg capsule 125 mg PO QID #40 caps 08/17/22 (Vancocin) hydrocodone 5 mg-acetaminophen 325 1 tab PO Q8H PRN pain #10 tabs 08/18/22 mg tablet fidaxomicin 200 mg tablet 200 mg PO BID 10 days #20 tabs 10/21/22 Allergies Allergy/AdvReac Type Severity Reaction Status Date / Time lisinopril Allergy Severe angioedema Verified 12/27/21 02:40 Penicillins Allergy Unknown Verified 12/27/21 02:40 hydromorphone [From Dilaudid] AdvReac nausea/vomi Verified 12/27/21 02:40 ting Review of Systems Narrative: Review of systems is widely positive with chronic pain in his shoulders, back, hips as well as the above-mentioned GI and renal concerns. He has had no recent difficulty with dialysis. His PCP is Jose Francisco Lombardo at [facility] in [place]. [facility] Medical History (Updated 10/21/22 @ 17:36 by Arthur Araujo MD) Type 2 diabetes mellitus, without long-term current use of insulin ?E11.9 - Type 2 diabetes mellitus without complications (ICD-10) Hypertension ?I10 - Essential (primary) hypertension (ICD-10) Malignant neoplasm of sigmoid colon ?C18.7 - Malignant neoplasm of sigmoid colon (ICD-10) Spondylosis of lumbar region without myelopathy or radiculopathy ?M47.816 - Spondylosis without myelopathy or radiculopathy, lumbar region (ICD-10) Bilateral hip pain ?M25.551 - Pain in right hip (ICD-10) ?M25.552 - Pain in left hip (ICD-10) Spinal stenosis, lumbar region without neurogenic claudication ?M48.061 - Spinal stenosis, lumbar region without neurogenic claudication (ICD-10) Lumbar foraminal stenosis ?M48.061 - Spinal stenosis, lumbar region without neurogenic claudication (ICD-10) Chronic abdominal pain ?R10.9 - Unspecified abdominal pain (ICD-10) ?G89.29 - Other chronic pain (ICD-10) Chronic pain of both shoulders ?M25.511 - Pain in right shoulder (ICD-10) ?M25.512 - Pain in left shoulder (ICD-10) ?G89.29 - Other chronic pain (ICD-10) Peripheral polyneuropathy ?G62.9 - Polyneuropathy, unspecified (ICD-10) Chronic thoracic back pain ?M54.6 - Pain in thoracic spine (ICD-10) ?G89.29 - Other chronic pain (ICD-10) GERD (gastroesophageal reflux disease) ?K21.9 - Gastro-esophageal reflux disease without esophagitis (ICD-10) Chronic constipation ?K59.09 - Other constipation (ICD-10) Hematemesis ?K92.0 - Hematemesis (ICD-10) Anxiety and depression ?F41.9 - Anxiety disorder, unspecified (ICD-10) ?F32.A - Depression, unspecified (ICD-10) ESRD on hemodialysis ?N18.6 - End stage renal disease (ICD-10) ?Z99.2 - Dependence on renal dialysis (ICD-10) Secondary hyperparathyroidism (of renal origin) ?N25.81 - Secondary hyperparathyroidism of renal origin (ICD-10) Surgical History History of colectomy ?Z90.49 - Acquired absence of other specified parts of digestive tract (ICD- 10) History of cholecystectomy ?Z90.49 - Acquired absence of other specified parts of digestive tract (ICD- 10) Social History Smoking Status: Never smoker Do you use any of these nicotine containing products: None Second hand tobacco smoke exposure: No How often do you have a drink containing alcohol: never How often do you have six or more drinks on one occasion: Never AUDIT-C Alcohol total score: 0 Non-prescribed substance use: marijuana (any form) service: No Exam Narrative: Exam Narrative: Vitals noted. He is pleasant and cooperative. HEENT: Conjunctiva clear. Tympanic membranes are pearly white bilaterally. Posterior pharynx is clear without erythema or exudate. Neck is supple without adenopathy, thyromegaly, carotid bruit. Lungs: Clear to auscultation in all canas. No wheezes, rales, rhonchi. Heart: Regular rate and rhythm without murmur. Abdomen: Soft with mild diffuse tenderness. No guarding, rigidity, rebound. Bowel sounds are normal. No palpable masses. Extremities: No cyanosis or edema. Good distal pulses. Skin: No abnormalities noted of the exposed skin. Neurologic: Awake, alert, fully oriented. Neurologic exam is nonfocal. He has stocking-glove distribution neuropathy. Const: Vital Signs, click to edit/add: Vital Signs - 24 hr 10/21/22 11:09 Temperature 98.1 F Pulse Rate [Pulse Oximeter] 80 Respiratory Rate 18 Blood Pressure [Ri ght Upper Arm] 104/66 Pulse Oximetry 99 Oxygen Delivery Me thod Room Air Course Course Hospital Course: Patient seen and examined. Labs are ordered. He is given oxycodone 10 mg orally for his pain. Reevaluation(s) Reevaluation #1: CBC shows a hemoglobin of 11.9. Basic metabolic panel shows a potassium of 6.0, BUN 38, creatinine 15.1. Glucose is 151. LFTs are normal. Vital Signs Vital signs: Initial Vital Signs Temperature 98.1 F 10/21/22 11:09 Temperature Source Temporal Artery Scan 10/21/22 11:09 Pulse Rate 80 10/21/22 11:09 Pulse Rhythm Regular 10/21/22 11:09 Respiratory Rate 18 10/21/22 11:09 Blood Pressure 104/66 10/21/22 11:09 Blood Pressure Mean 78 10/21/22 11:09 Blood Pressure Position Sitting 10/21/22 11:09 Pulse Oximetry 99 10/21/22 11:09 Oxygen Delivery Method Room Air 10/21/22 11:09 Vital Signs Temperature 98.1 F 10/21/22 11:09 Pulse Rate 80 10/21/22 11:09 Respiratory Rate 18 10/21/22 11:09 Blood Pressure 104/66 10/21/22 11:09 Pulse Oximetry 99 10/21/22 11:09 Oxygen Delivery Method Room Air 10/21/22 11:09 Temperature 98.1 F 10/21/22 11:09 Pulse Rate 80 10/21/22 11:09 Respiratory Rate 18 10/21/22 11:09 Blood Pressure 104/66 10/21/22 11:09 Pulse Oximetry 99 10/21/22 11:09 Oxygen Delivery Method Room Air 10/21/22 11:09 Medical Decision Making MDM Narrative Medical decision making narrative: This is a tough decision as our hospital does not stock fidaxomicin. His outpatient pharmacy can get it by tomorrow. He does have vancomycin at home. He will be able to refill his oxycodone tomorrow. He is scheduled for dialysis 1st thing in the morning tomorrow. I do not think his potassium of 6.0 is likely a cause any life-threatening issues between now and the morning. I did give him four tablets of oxycodone out of our [employer] machine. I have sent a prescription for fidaxomicin to [facility]. If prior authorization is necessary they can get started on that yet today. The patient is very comfortable with this plan for discharge rather than attempts at transferring him back down to [facility] for further care. Lab Data Labs: Lab Results 10/21/22 Range/Units 12:07 WBC 8.59 (4.50-11.00) K/uL RBC 3.75 L (4.30-5.90) m/uL Hgb 11.9 L (13.5-17.5) gm/dL Hct 37.1 (37.0-53.0) % MCV 99 (80-100) fL MCH 32 (26-34) pg MCHC 32 (32-36) gm/dL RDW Coeff of Mike 14.6 (11.5-15.5) % Plt Count 215 (140-440) K/uL Neut % (Auto) 64.6 (42.0-72.0) % Lymph % (Auto) 23.2 (20-44) % [place] % (Auto) 9.1 (0.0-11.0) % Eos % (Auto) 2.7 (0.0-7.0) % Baso % (Auto) 0.3 (0.0-3.0) % Neut # (Auto) 5.55 (1.7-7.0) K/uL Lymph # (Auto) 1.99 (0.90-2.90) K/uL [place] # (Auto) 0.80 (0.00-0.90) K/UL Eos # (Auto) 0.23 (0.00-0.50) K/uL Baso # (Auto) 0.03 (0.00-0.30) K/uL Sodium 135 (135-149) mmol/L Potassium 6.0 H (3.6-5.1) mmol/L Chloride 96 (96-114) mmol/L Carbon Dioxide 25 (20-32) mmol/L BUN 38 H (7-30) mg/dL Creatinine 15.1 H (0.5-1.5) mg/dL Estimated Creat Clear 5.03 Estimated GFR 4 ml/min Glucose 151 H (60-115) mg/dL Calcium 9.6 (8.4-10.6) mg/dL Total Bilirubin 0.6 (0.1-1.5) mg/dL Direct Bilirubin 0.5 (0.0-0.5) mg/dL AST 36 H (12-35) U/L ALT 29 (4-50) U/L Alkaline Phosphatase 141 (40-150) U/L Total Protein 7.5 (6.0-8.3) g/dL Albumin 4.6 (3.3-5.0) g/dL Lipase 75 (23-300) U/L Discharge Plan Discharge Clinical Impression: ESRD (end stage renal disease) on dialysis, Clostridium difficile infection Patient Disposition: Home, Self-Care Condition: Improved Additional Instructions: Oxycodone as needed for pain. Dialysis tomorrow no matter what. Take Vancomycin today and tomorrow. Rx for Fidaxomicin 200 mg twice a day sent to [facility]. Keep follow up Colonoscopy with [facility] next week. Prescriptions: New fidaxomicin 200 mg tablet 200 mg PO BID 10 Days Qty: 20 0RF Rx Instructions: May need PA. His C Diff is resistant to Flagyl and Vanco. No Action cyclobenzaprine 10 mg tablet 10 mg PO TID PRN Patient Comments: TAKE 1 TABLET (10 MG) BY MOUTH 3 TIMES DAILY IF NEEDED FOR MUSCLE SPASM. atorvastatin 40 mg tablet 40 mg PO DAILY Patient Comments: TAKE ONE TABLET BY MOUTH AT BEDTIME sennosides [Suyapa-ulysses] 8.6 mg tablet 8.6 mg PO DAILY PRN Patient Comments: TAKE 1 TABLET (8.6 MG) BY MOUTH 2 TIMES DAILY. vancomycin 125 mg capsule Patient Comments: TAKE ONE CAPSULE BY MOUTH FOUR TIMES A DAY ondansetron 8 mg tablet,disintegrating 8 mg PO Q8H PRN Patient Comments: PLACE 1 TABLET (8MG) ON THE TONGUE EVERY 8 HOURS IF NEEDED FOR NAUSEA/VOMITING. lidocaine-prilocaine 2.5-2.5 % cream 1 applic topical DAILY Patient Comments: APPLY SMALL AMOUNT TO ACCESS SITE (AVF) 1 TO 2 HOURS BEFORE DIALYSIS. COVER WITH OCCLUSIVE DRESSING (SARAN WRAP) lorazepam 0.5 mg tablet 0.5 mg PO Q12H PRN Patient Comments: TAKE ONE TABLET BY MOUTH ON DIALYSIS DAYS AND CAN TAKE TAKE ONE TABLET TWICE A DAY NEEDED ON NON-DIALYSIS DAYS FOR ANXIETY amlodipine 10 mg tablet 10 mg PO DAILY Patient Comments: TAKE ONE TABLET BY MOUTH ONCE DAILY polyethylene glycol 3350 17 gram/dose powder 17 g PO DAILY PRN Patient Comments: MIX 1 SCOOP (17 G) IN LIQUID THEN TAKE BY MOUTH 2 TIMES DAILY IF NEEDED FOR CONSTIPATION. oxycodone 5 mg tablet 5 mg PO PRN hydroxyzine pamoate 25 mg capsule 25 mg PO Q6-12H PRN Patient Comments: TAKE 1-2 CAPSULES (25-50 MG) BY MOUTH EVERY 6 HOURS IF NEEDED. metoprolol tartrate 25 mg tablet 25 mg PO Q12H Patient Comments: TAKE ONE TABLET BY MOUTH TWICE A DAY. ON DIALYSIS DAYS TAKE THIS AFTERWARDS sevelamer carbonate 800 mg tablet 2,400 mg PO TID Patient Comments: TAKE 4 TABLETS BY MOUTH THREE TIMES DAILY WITH MEALS AND 3 TABLETS TWICE DAILY WITH SNACKS diclofenac sodium 1 % gel TOPICAL Patient Comments: APPLY 2 G TOPICALLY TO AFFECTED AREA(S) 4 TIMES DAILY. Auryxia 210 mg iron tablet 2 tab PO TID Patient Comments: TAKE 2 TABLETS BY MOUTH THREE TIMES A DAY WITH MEALS AND 1 TABLET TWICE A DAY WITH SNACKS. SWALLOW WHOLE, DO NOT CHEW OR CRUSH MEDICATION RenaPlex-D 800 mcg-12.5 mg -2,000 unit tablet 1 tab PO DAILY Patient Comments: TAKE 1 TABLET BY MOUTH EVERY DAY WITH THE EVENING MEAL hydrocodone-acetaminophen 5-325 mg tablet 1 tab PO Q8H PRN (Reason: pain) Qty: 10 0RF vancomycin [Vancocin] 125 mg capsule 125 mg PO QID Qty: 40 0RF Follow Up/Referrals: Antonietta Lombardo MD [Primary Care Provider] - Stand Alone Forms: MyHealth Info Instructions
== END 2022-10-21 13:28 | disposition home or self-care (01) ==
PROVIDERS: Emergency Provider Family Medicine
DX: N18.6 End stage renal disease (principal); B96.89 Other specified bacterial agents as the cause of diseases classified elsewhere; Z99.2 Dependence on renal dialysis
CPT/HCPCS: 36415; 80048; 80076; 83690; 85025; 99283; 99284; A9270

== ENCOUNTER 2022-12-02 17:06 | Emergency (ER) | payer MEDICARE, OTHER, SELFPAY ==
[2022-12-02 17:16] VITALS: BP 110/95; PULSE 80; RESP 16; TEMP 37; O2SAT 100; BMI 24.1
--- NOTE | 2022-12-02 17:41 | ED_ITS ---
HPI - General Adult General Date Seen: 12/02/22 Chief complaint: Abdominal Pain Stated complaint: Abdominal pain Time Seen by Provider: 12/02/22 17:18 Source: patient Mode of arrival: ambulatory Limitations: no limitations History of Present Illness HPI narrative: Patient is a 52-year-old male with underlying renal failure on dialysis and chronic abdominal pain who presents for worsening of his chronic abdominal pain associated constipation. He has not had a bowel movement for several days, he feels an intense urge to go and says he has been pushing a lot but can not go. He has diffuse crampy pain, has had some nausea no vomiting no fevers. Pain is unchanged from his usual pain aside from severity. He has an appointment on December 09 with [facility] for evaluation of these symptoms and a colonoscopy scheduled for December 16. He says that he can not wait until then. Related Data Home Medications Medication Instructions Recorded Confirmed amlodipine 10 mg tablet 10 mg PO DAILY 12/26/21 08/15/22 atorvastatin 40 mg tablet 40 mg PO DAILY 12/26/21 08/15/22 cyclobenzaprine 10 mg tablet 10 mg PO TID PRN 12/26/21 08/15/22 diclofenac sodium 1 % topical gel topical 12/26/21 ferric citrate 210 mg iron tablet 2 tab PO TID 12/26/21 04/26/22 (Auryxia) hydroxyzine pamoate 25 mg capsule 25 mg PO Q6-12H PRN 12/26/21 08/15/22 lidocaine-prilocaine 2.5 %-2.5 % 1 applic topical DAILY 12/26/21 04/26/22 topical cream lorazepam 0.5 mg tablet 0.5 mg PO Q12H PRN 12/26/21 08/15/22 metoprolol tartrate 25 mg tablet 25 mg PO Q12H 12/26/21 08/15/22 ondansetron 8 mg disintegrating 8 mg PO Q8H PRN 12/26/21 08/15/22 tablet oxycodone 5 mg tablet 5 mg PO PRN 12/26/21 polyethylene glycol 3350 17 17 g PO DAILY PRN 12/26/21 04/26/22 gram/dose oral powder sennosides 8.6 mg tablet (Suyapa-ulysses) 8.6 mg PO DAILY PRN 12/26/21 04/26/22 sevelamer carbonate 800 mg tablet 2,400 mg PO TID 12/26/21 08/15/22 vancomycin 125 mg capsule mg 12/26/21 vit B,C-folic ac 800 mcg-zinc 12.5 1 tab PO DAILY 12/26/21 04/26/22 mg-selen-D3 2,000 unit-vit E tablet (RenaPlex-D) Previous Rx's Medication Instructions Recorded vancomycin 125 mg capsule 125 mg PO QID #40 caps 08/17/22 (Vancocin) hydrocodone 5 mg-acetaminophen 325 1 tab PO Q8H PRN pain #10 tabs 08/18/22 mg tablet fidaxomicin 200 mg tablet 200 mg PO BID 10 days #20 tabs 10/21/22 naloxegol 12.5 mg tablet (Movantik) 12.5 mg PO QAM #5 tabs 12/02/22 Allergies Allergy/AdvReac Type Severity Reaction Status Date / Time lisinopril Allergy Severe angioedema Verified 12/02/22 19:41 Penicillins Allergy Unknown Verified 12/02/22 19:41 hydromorphone [From Dilaudid] AdvReac nausea/vomi Verified 12/02/22 19:41 ting Review of Systems Status of ROS: Reports: 10 or more systems reviewed and unremarkable except as noted in History and below [facility] Medical History Type 2 diabetes mellitus, without long-term current use of insulin ?E11.9 - Type 2 diabetes mellitus without complications (ICD-10) Hypertension ?I10 - Essential (primary) hypertension (ICD-10) Malignant neoplasm of sigmoid colon ?C18.7 - Malignant neoplasm of sigmoid colon (ICD-10) Spondylosis of lumbar region without myelopathy or radiculopathy ?M47.816 - Spondylosis without myelopathy or radiculopathy, lumbar region (ICD-10) Bilateral hip pain ?M25.551 - Pain in right hip (ICD-10) ?M25.552 - Pain in left hip (ICD-10) Spinal stenosis, lumbar region without neurogenic claudication ?M48.061 - Spinal stenosis, lumbar region without neurogenic claudication (ICD-10) Lumbar foraminal stenosis ?M48.061 - Spinal stenosis, lumbar region without neurogenic claudication (ICD-10) Chronic abdominal pain ?R10.9 - Unspecified abdominal pain (ICD-10) ?G89.29 - Other chronic pain (ICD-10) Chronic pain of both shoulders ?M25.511 - Pain in right shoulder (ICD-10) ?M25.512 - Pain in left shoulder (ICD-10) ?G89.29 - Other chronic pain (ICD-10) Peripheral polyneuropathy ?G62.9 - Polyneuropathy, unspecified (ICD-10) Chronic thoracic back pain ?M54.6 - Pain in thoracic spine (ICD-10) ?G89.29 - Other chronic pain (ICD-10) GERD (gastroesophageal reflux disease) ?K21.9 - Gastro-esophageal reflux disease without esophagitis (ICD-10) Chronic constipation ?K59.09 - Other constipation (ICD-10) Hematemesis ?K92.0 - Hematemesis (ICD-10) Anxiety and depression ?F41.9 - Anxiety disorder, unspecified (ICD-10) ?F32.A - Depression, unspecified (ICD-10) ESRD on hemodialysis ?N18.6 - End stage renal disease (ICD-10) ?Z99.2 - Dependence on renal dialysis (ICD-10) Secondary hyperparathyroidism (of renal origin) ?N25.81 - Secondary hyperparathyroidism of renal origin (ICD-10) Surgical History History of colectomy ?Z90.49 - Acquired absence of other specified parts of digestive tract (ICD- 10) History of cholecystectomy ?Z90.49 - Acquired absence of other specified parts of digestive tract (ICD- 10) Social History Smoking Status: Never smoker Do you use any of these nicotine containing products: None Second hand tobacco smoke exposure: No How often do you have a drink containing alcohol: never How often do you have six or more drinks on one occasion: Never AUDIT-C Alcohol total score: 0 Non-prescribed substance use: marijuana (any form) service: No Exam Narrative: Exam Narrative: Vital signs as noted above. In general, an alert, nontoxic patient. He is pacing in the room. Head: Normocephalic, atraumatic. Eyes: Pupils are equal reactive. Extraocular movements are full. ENT: Mucous membranes are moist. Throat is normal. Neck: Supple without lymphadenopathy. Heart: Regular rate and rhythm. Lungs: Clear bilaterally. No increased work of breathing, crackles or wheezes. Abdomen: Soft and nondistended, mild diffuse tenderness without rebound guarding or rigidity. Extremities: Well perfused. No edema. No calf tenderness. Pulses intact. Dialysis shunt left arm. Neurologic: Patient is alert and oriented to person and place. Speech is fluent. Face is symmetric. Moves all extremities equally. Affect: Normal. Skin: Warm and dry. Well perfused. Const: Vital Signs, click to edit/add: Vital Signs - 24 hr 12/02/22 17:16 12/02/22 19:09 Temperature 98.6 F 98.2 F Pulse Rate [Pulse Oximeter] 80 74 Respiratory Rate 16 18 Blood Pressure [Ri ght Upper Arm] 110/95 H 131/77 Pulse Oximetry 100 100 Oxygen Delivery Me thod Room Air Room Air Documenting provider has reviewed patient's vital signs: yes Course Course Hospital Course: Given that his pain is chronic in he presents with symptoms suggesting constipation I think it is reasonable to treat with an enema 1st and see if he has relief with that. Defer workup pending results of the enema. Patient did not have results with an enema or milk of magnesia. I did proceed with a workup at that time, he had an IV established, he requested pain medication, he actually tells me now that he ran out of his oxycodone yesterday so he asked for 2 doses of that here. He scheduled to fill his regular prescription tomorrow. His labs are normal, white blood cell count is 9.7, he is mildly anemic with a hemoglobin of 11. Metabolic panel is notable only for creatinine of 8.7 not surprising given his dialysis state. Blood sugars 99, lactate is 0.7, LFTs are normal, CRP is less than 0.5 and lipase is 141. CT scan of the abdomen is read by Radiology as follows: IMPRESSION: 1. Findings suggestive of a nonspecific enteritis with small bowel wall thickening and fluid-filled distal small bowel/proximal colon. Large amount of stool in the distal colon. 2. New inflammatory changes of the rectum likely representing proctitis. 3. Severely atrophic kidneys with multiple cysts. 4. Bladder wall thickening may be due to underdistention, however correlation with urinalysis is recommended. Based on this read, I do not know that there is a clear indication for either I antibiotics or steroids, and given that he has seen GI in just a few days I am leaning toward not treating with anything specific until he follows up with them. He actually has an appointment with his primary doctor tomorrow, they can discuss further and if he feels that it is appropriate to start something he can do that at that time. I am going to give him Movantik to try and treat the opioid induced constipation. Vital Signs Vital signs: Initial Vital Signs Temperature 98.6 F 12/02/22 17:16 Temperature Source Temporal Artery Scan 12/02/22 17:16 Pulse Rate 80 12/02/22 17:16 Respiratory Rate 16 12/02/22 17:16 Blood Pressure 110/95 H 12/02/22 17:16 Blood Pressure Mean 100 12/02/22 17:16 Blood Pressure Position Supine 12/02/22 17:16 Pulse Oximetry 100 12/02/22 17:16 Oxygen Delivery Method Room Air 12/02/22 17:16 Vital Signs Temperature 98.6 F 12/02/22 17:16 Pulse Rate 80 12/02/22 17:16 Respiratory Rate 16 12/02/22 17:16 Blood Pressure 110/95 H 12/02/22 17:16 Pulse Oximetry 100 12/02/22 17:16 Oxygen Delivery Method Room Air 12/02/22 17:16 Temperature 98.2 F 12/02/22 19:09 Pulse Rate 74 12/02/22 19:09 Respiratory Rate 18 12/02/22 19:09 Blood Pressure 131/77 12/02/22 19:09 Pulse Oximetry 100 12/02/22 19:09 Oxygen Delivery Method Room Air 12/02/22 19:09 Medical Decision Making Lab Data Labs: Lab Results 12/02/22 Range/Units 18:45 WBC 9.70 (4.50-11.00) K/uL RBC 3.40 L (4.30-5.90) m/uL Hgb 11.0 L (13.5-17.5) gm/dL Hct 34.7 L (37.0-53.0) % MCV 102 H (80-100) fL MCH 32 (26-34) pg MCHC 32 (32-36) gm/dL RDW Coeff of Mike 14.6 (11.5-15.5) % Plt Count 227 (140-440) K/uL Neut % (Auto) 77.0 H (42.0-72.0) % Lymph % (Auto) 14.5 L (20-44) % [place] % (Auto) 6.4 (0.0-11.0) % Eos % (Auto) 1.6 (0.0-7.0) % Baso % (Auto) 0.3 (0.0-3.0) % Neut # (Auto) 7.50 H (1.7-7.0) K/uL Lymph # (Auto) 1.40 (0.90-2.90) K/uL [place] # (Auto) 0.60 (0.00-0.90) K/UL Eos # (Auto) 0.16 (0.00-0.50) K/uL Baso # (Auto) 0.03 (0.00-0.30) K/uL Abs Immat Gran (auto) 0.02 (0.00-0.30) K/uL Imm/Tot Granulo (auto) 0.2 % Sodium 139 (135-149) mmol/L Potassium 4.6 (3.6-5.1) mmol/L Chloride 104 (96-114) mmol/L Carbon Dioxide 24 (20-32) mmol/L BUN 29 (7-30) mg/dL Creatinine 8.7 H (0.5-1.5) mg/dL Estimated Creat Clear 8.74 Estimated GFR 7 ml/min Glucose 99 (60-115) mg/dL Lactate 0.7 (0.5-1.9) mmol/L Calcium 9.2 (8.4-10.6) mg/dL Total Bilirubin 0.4 (0.1-1.5) mg/dL Direct Bilirubin 0.3 (0.0-0.5) mg/dL AST 30 (12-35) U/L ALT 22 (4-50) U/L Alkaline Phosphatase 128 (40-150) U/L C-Reactive Protein < 0.5 L (0.5-1.0) mg/dL Total Protein 7.3 (6.0-8.3) g/dL Albumin 4.3 (3.3-5.0) g/dL Lipase 141 (23-300) U/L Discharge Plan Discharge Clinical Impression: Proctitis, Constipation Patient Disposition: Home, Self-Care Condition: Stable Instructions: Constipation (ED), Proctitis (ED) Additional Instructions: Follow-up with your primary doctor tomorrow as planned. GI follow-up as planned. Prescriptions: New Movantik 12.5 mg tablet 12.5 mg PO QAM Qty: 5 0RF Rx Instructions: must be taken on empty stomach; no food 1 hr after or 2-3 hrs before dose No Action cyclobenzaprine 10 mg tablet 10 mg PO TID PRN Patient Comments: TAKE 1 TABLET (10 MG) BY MOUTH 3 TIMES DAILY IF NEEDED FOR MUSCLE SPASM. atorvastatin 40 mg tablet 40 mg PO DAILY Patient Comments: TAKE ONE TABLET BY MOUTH AT BEDTIME sennosides [Suyapa-ulysses] 8.6 mg tablet 8.6 mg PO DAILY PRN Patient Comments: TAKE 1 TABLET (8.6 MG) BY MOUTH 2 TIMES DAILY. vancomycin 125 mg capsule Patient Comments: TAKE ONE CAPSULE BY MOUTH FOUR TIMES A DAY ondansetron 8 mg tablet,disintegrating 8 mg PO Q8H PRN Patient Comments: PLACE 1 TABLET (8MG) ON THE TONGUE EVERY 8 HOURS IF NEEDED FOR NAUSEA/VOMITING. lidocaine-prilocaine 2.5-2.5 % cream 1 applic topical DAILY Patient Comments: APPLY SMALL AMOUNT TO ACCESS SITE (AVF) 1 TO 2 HOURS BEFORE DIALYSIS. COVER WITH OCCLUSIVE DRESSING (SARAN WRAP) lorazepam 0.5 mg tablet 0.5 mg PO Q12H PRN Patient Comments: TAKE ONE TABLET BY MOUTH ON DIALYSIS DAYS AND CAN TAKE TAKE ONE TABLET TWICE A DAY NEEDED ON NON-DIALYSIS DAYS FOR ANXIETY amlodipine 10 mg tablet 10 mg PO DAILY Patient Comments: TAKE ONE TABLET BY MOUTH ONCE DAILY polyethylene glycol 3350 17 gram/dose powder 17 g PO DAILY PRN Patient Comments: MIX 1 SCOOP (17 G) IN LIQUID THEN TAKE BY MOUTH 2 TIMES DAILY IF NEEDED FOR CONSTIPATION. oxycodone 5 mg tablet 5 mg PO PRN hydroxyzine pamoate 25 mg capsule 25 mg PO Q6-12H PRN Patient Comments: TAKE 1-2 CAPSULES (25-50 MG) BY MOUTH EVERY 6 HOURS IF NEEDED. metoprolol tartrate 25 mg tablet 25 mg PO Q12H Patient Comments: TAKE ONE TABLET BY MOUTH TWICE A DAY. ON DIALYSIS DAYS TAKE THIS AFTERWARDS sevelamer carbonate 800 mg tablet 2,400 mg PO TID Patient Comments: TAKE 4 TABLETS BY MOUTH THREE TIMES DAILY WITH MEALS AND 3 TABLETS TWICE DAILY WITH SNACKS diclofenac sodium 1 % gel TOPICAL Patient Comments: APPLY 2 G TOPICALLY TO AFFECTED AREA(S) 4 TIMES DAILY. Auryxia 210 mg iron tablet 2 tab PO TID Patient Comments: TAKE 2 TABLETS BY MOUTH THREE TIMES A DAY WITH MEALS AND 1 TABLET TWICE A DAY WITH SNACKS. SWALLOW WHOLE, DO NOT CHEW OR CRUSH MEDICATION RenaPlex-D 800 mcg-12.5 mg -2,000 unit tablet 1 tab PO DAILY Patient Comments: TAKE 1 TABLET BY MOUTH EVERY DAY WITH THE EVENING MEAL hydrocodone-acetaminophen 5-325 mg tablet 1 tab PO Q8H PRN (Reason: pain) Qty: 10 0RF fidaxomicin 200 mg tablet 200 mg PO BID 10 Days Qty: 20 0RF Rx Instructions: May need PA. His C Diff is resistant to Flagyl and Vanco. vancomycin [Vancocin] 125 mg capsule 125 mg PO QID Qty: 40 0RF Follow Up/Referrals: Antonietta Lombardo MD [Primary Care Provider] - Stand Alone Forms: [facility] Info Instructions
[2022-12-02] MEDS: MAGNESIUM HYDROXIDE 30 ML ORAL.SUSP PO (17:51)
[2022-12-02] MEDS: DOCUSATE SODIUM/BENZOCAINE 5 ML ENEMA PR (17:51)
--- NOTE | 2022-12-02 18:25 | CRLHL7_ITS ---
For Patients: As a result of the Century Cures Act, medical imaging exams and procedure reports are released immediately into your electronic medical record. You may view this report before your referring provider. If you have questions, please contact your health care provider. INDICATION: Abdominal pain, constipation. History of colon cancer. TECHNIQUE: CT of the abdomen and pelvis with 71 cc Isovue 370 IV contrast. Coronal and sagittal reconstructions. COMPARISON: CT of the abdomen and pelvis 09/23/2022. FINDINGS: The liver, spleen, pancreas, and adrenal glands are negative. Splenule. Cholecystectomy. Stable mild intra and extrahepatic bile duct dilation likely related to post cholecystectomy state. Hepatic and portal veins are patent. Symmetric enhancement of the kidneys. The kidneys are severely atrophic. Multiple small bilateral renal cysts. No hydronephrosis or ureteral dilation. No obstructing urinary calculi identified. Decompressed thick-walled urinary bladder. Mildly enlarged prostate gland. No small bowel dilation. There is wall thickening of multiple proximal to mid small bowel loops suggesting a nonspecific enteritis. Fluid-filled distal small bowel loops and proximal colon. Large amount of formed stool in the distal colon. Postoperative changes of the rectosigmoid colon. There is new circumferential rectal wall thickening and mucosal hyperenhancement which is likely inflammatory. Appendicoliths within the appendix which is otherwise negative. No lymphadenopathy. Extensive aortoiliac vascular calcifications. Degenerative changes of the spine. Multilevel endplate Schmorl`s nodes. The lung bases are clear. Coronary artery calcifications. Mild body wall edema. IMPRESSION: 1. Findings suggestive of a nonspecific enteritis with small bowel wall thickening and fluid-filled distal small bowel/proximal colon. Large amount of stool in the distal colon. 2. New inflammatory changes of the rectum likely representing proctitis. 3. Severely atrophic kidneys with multiple cysts. 4. Bladder wall thickening may be due to underdistention, however correlation with urinalysis is recommended. Please note that all CT scans at this facility use dose modulation, iterative reconstruction, and/or weight-based dosing when appropriate to reduce radiation dose to as low as reasonably achievable. Dictated by Varsha Coelho MD @ 12/02/2022 8:35:13 PM (Electronically Signed)
[2022-12-02 18:49] LABS: Lactate Sepsis w/Reflex* 0.7 mmol/L (0.5-1.9); Lactate* 0.7 mmol/L (0.5-1.9)
[2022-12-02] MEDS: OXYCODONE 5 MG TABLET PO ×2 (18:49→20:59)
[2022-12-02 18:51] LABS: Basophils Absolute Auto 0.03 K/uL (0.00-0.30); Basophils Percent Auto 0.3 % (0.0-3.0); Eosinophils Absolute Auto 0.16 K/uL (0.00-0.50); Eosinophils Percent Auto 1.6 % (0.0-7.0); Hematocrit 34.7 % (37.0-53.0); Immature Granulocytes Abs Auto 0.02 K/uL (0.00-0.30); Immature Granulocytes Pct Auto 0.2 %; Lymphocytes Percent Auto 14.5 % (20-44); Mean Corpuscular HGB Conc 32 gm/dL (32-36); Mean Corpuscular Hemoglobin 32 pg (26-34); Mean Corpuscular Volume 102 fL (80-100); Monocytes Percent Auto 6.4 % (0.0-11.0); Platelet Count* 227 K/uL (140-440); RDW Coefficient of Variation % 14.6 % (11.5-15.5); Slide Review Reflex No
[2022-12-02 19:06] LABS: Albumin* 4.3 g/dL (3.3-5.0)
[2022-12-02 19:07] LABS: Chloride* 104 mmol/L (96-114); Potassium* 4.6 mmol/L (3.6-5.1); Sodium* 139 mmol/L (135-149)
[2022-12-02 19:09] VITALS: BP 131/77; PULSE 74; RESP 18; TEMP 36.8; O2SAT 100
[2022-12-02 19:09] LABS: Alkaline Phosphatase* 128 U/L (40-150); Aspartate Amino Transferase* 30 U/L (12-35); Bilirubin Direct* 0.3 mg/dL (0.0-0.5); Bilirubin Total* 0.4 mg/dL (0.1-1.5); Total Protein* 7.3 g/dL (6.0-8.3)
[2022-12-02 19:10] LABS: Alanine Aminotransferase* 22 U/L (4-50); Creatinine* 8.7 mg/dL (0.5-1.5); Est. Creatinine Clearance* 8.74; Estimated Glomerular Filt Rate 7 ml/min; Lipase* 141 U/L (23-300)
[2022-12-02 19:11] LABS: Blood Urea Nitrogen* 29 mg/dL (7-30); Calcium* 9.2 mg/dL (8.4-10.6); Carbon Dioxide* 24 mmol/L (20-32); Glucose* 99 mg/dL (60-115)
[2022-12-02 19:14] LABS: C Reactive Protein* < 0.5 mg/dL (0.5-1.0)
--- NOTE | 2022-12-02 19:19 | ED.NURSE ---
pt hand off report given to next ED nurse.
[2022-12-02] MEDS: ONDANSETRON 2 MG/ML inj 4 MG IVP (19:26)
--- NOTE | 2022-12-02 20:03 | ED.NURSE ---
Assumed care of pt at 1900. Pt had CT scan. Zofran administered prior to scan. Appears more comfortable. Will continue to monitor and assess.
== END 2022-12-02 21:14 | disposition home or self-care (01) ==
PROVIDERS: Emergency Provider Emergency Medicine
DX: K62.89 Other specified diseases of anus and rectum (principal); K59.00 Constipation, unspecified
CPT/HCPCS: 36415; 74177; 80048; 80076; 83605; 83690; 85025; 86140; 96374; 99284; A9270; J2405; Q9967

== ENCOUNTER 2023-01-21 14:27 | Emergency (ER) | payer MEDICARE, OTHER, SELFPAY ==
[2023-01-21 14:38] VITALS: BP 145/76; PULSE 72; RESP 16; TEMP 36.7; O2SAT 100; BMI 23.3
--- NOTE | 2023-01-21 14:48 | CRLHL7_ITS ---
For Patients: As a result of the Century Cures Act, medical imaging exams and procedure reports are released immediately into your electronic medical record. You may view this report before your referring provider. If you have questions, please contact your health care provider. INDICATION: Abdominal pain for 1 week, C diff.. TECHNIQUE: CT abdomen and pelvis without contrast. COMPARISON: 12/02/2022. FINDINGS: Limited evaluation of the intra-abdominal solid organs without IV contrast. Lower chest: Unremarkable. Liver: Normal in size and attenuation. No suspicious masses. Gallbladder and bile ducts: Status post cholecystectomy. Mild intrahepatic biliary ductal dilatation likely reservoir effect. Pancreas: Unremarkable. No mass or inflammation. Spleen: Normal in size. No masses. Adrenal glands: Normal in size. No nodules. Kidneys: Atrophy of the bilateral kidneys. Scattered too small to characterize hypodensities bilaterally. No hydronephrosis or hydroureter. No renal stones identified. GI tract: Anastomosis in the rectum. No bowel obstruction. Appendix is within normal limits. Vasculature: Abdominal aorta is normal in caliber. Moderate to severe diffuse calcific atherosclerosis. Lymph nodes: No lymphadenopathy. Peritoneum/Abdominal Wall: Unremarkable. No sign of mass or infiltration. No free air or significant free fluid. Pelvis: Unremarkable. No pelvic masses. Bones: Unremarkable for age. IMPRESSION: No acute intra-abdominal process identified. Please note that all CT scans at this facility use dose modulation, iterative reconstruction, and/or weight-based dosing when appropriate to reduce radiation dose to as low as reasonably achievable. Dictated by Tony Ervin MD @ 01/21/2023 4:43:33 PM (Electronically Signed)
--- NOTE | 2023-01-21 14:52 | ED_ITS ---
HPI - General Adult General Time Seen by Provider: 14:52 Date Seen: 01/21/23 Chief complaint: Abdominal Pain Stated complaint: Abdominal pain Time Seen by Provider: 01/21/23 14:35 Source: patient Mode of arrival: ambulatory Limitations: no limitations History of Present Illness HPI narrative: Patient is a 53-year-old male who has got end-stage renal failure and is on dialysis, he has also been diagnosed with C diff colitis and he has had abdominal pain for the last week. He has chronic abdominal pain. He is scheduled to get a fecal transplant in January. He works with the GI doctor regarding this. He left dialysis after about 3-1/2 hours today because of abdominal discomfort. He has report did bleed he had trouble eating this whole week. Denies fever, denies chills, denies change in bowel . Denies shortness of breath or chest pain. He has got an extensive medical history including chronic abdominal pain, peripheral neuropathy type 2 diabetes, C diff infection. Related Data Home Medications Medication Instructions Recorded Confirmed amlodipine 10 mg tablet 10 mg PO DAILY 12/26/21 01/21/23 atorvastatin 40 mg tablet 40 mg PO DAILY 12/26/21 01/21/23 cyclobenzaprine 10 mg tablet 10 mg PO TID PRN 12/26/21 01/21/23 diclofenac sodium 1 % topical gel topical 12/26/21 ferric citrate 210 mg iron tablet 2 tab PO TID 12/26/21 01/21/23 (Auryxia) hydroxyzine pamoate 25 mg capsule 25 mg PO Q6-12H PRN 12/26/21 01/21/23 lidocaine-prilocaine 2.5 %-2.5 % 1 applic topical DAILY 12/26/21 01/21/23 topical cream lorazepam 0.5 mg tablet 0.5 mg PO Q12H PRN 12/26/21 08/15/22 metoprolol tartrate 25 mg tablet 25 mg PO Q12H 12/26/21 01/21/23 ondansetron 8 mg disintegrating 8 mg PO Q8H PRN 12/26/21 01/21/23 tablet oxycodone 5 mg tablet 5 mg PO PRN 12/26/21 polyethylene glycol 3350 17 17 g PO DAILY PRN 12/26/21 04/26/22 gram/dose oral powder sennosides 8.6 mg tablet (Suyapa-ulysses) 8.6 mg PO DAILY PRN 12/26/21 01/21/23 sevelamer carbonate 800 mg tablet 2,400 mg PO TID 12/26/21 08/15/22 vancomycin 125 mg capsule mg 12/26/21 vit B,C-folic ac 800 mcg-zinc 12.5 1 tab PO DAILY 12/26/21 01/21/23 mg-selen-D3 2,000 unit-vit E tablet (RenaPlex-D) Previous Rx's Medication Instructions Recorded vancomycin 125 mg capsule 125 mg PO QID #40 caps 08/17/22 (Vancocin) hydrocodone 5 mg-acetaminophen 325 1 tab PO Q8H PRN pain #10 tabs 08/18/22 mg tablet fidaxomicin 200 mg tablet 200 mg PO BID 10 days #20 tabs 10/21/22 naloxegol 12.5 mg tablet (Movantik) 12.5 mg PO QAM #5 tabs 12/02/22 Allergies Allergy/AdvReac Type Severity Reaction Status Date / Time lisinopril Allergy Severe angioedema Verified 01/21/23 14:44 Penicillins Allergy Unknown Verified 01/21/23 14:44 hydromorphone [From Dilaudid] AdvReac nausea/vomi Verified 01/21/23 14:44 ting Review of Systems Status of ROS: Reports: 6 or more systems reviewed and unremarkable except as noted in History and below [facility] Medical History Type 2 diabetes mellitus, without long-term current use of insulin ?E11.9 - Type 2 diabetes mellitus without complications (ICD-10) Hypertension ?I10 - Essential (primary) hypertension (ICD-10) Malignant neoplasm of sigmoid colon ?C18.7 - Malignant neoplasm of sigmoid colon (ICD-10) Spondylosis of lumbar region without myelopathy or radiculopathy ?M47.816 - Spondylosis without myelopathy or radiculopathy, lumbar region (I CD-10) Bilateral hip pain ?M25.551 - Pain in right hip (ICD-10) ?M25.552 - Pain in left hip (ICD-10) Spinal stenosis, lumbar region without neurogenic claudication ?M48.061 - Spinal stenosis, lumbar region without neurogenic claudication (ICD-10) Lumbar foraminal stenosis ?M48.061 - Spinal stenosis, lumbar region without neurogenic claudication (ICD-10) Chronic abdominal pain ?R10.9 - Unspecified abdominal pain (ICD-10) ?G89.29 - Other chronic pain (ICD-10) Chronic pain of both shoulders ?M25.511 - Pain in right shoulder (ICD-10) ?M25.512 - Pain in left shoulder (ICD-10) ?G89.29 - Other chronic pain (ICD-10) Peripheral polyneuropathy ?G62.9 - Polyneuropathy, unspecified (ICD-10) Chronic thoracic back pain ?M54.6 - Pain in thoracic spine (ICD-10) ?G89.29 - Other chronic pain (ICD-10) GERD (gastroesophageal reflux disease) ?K21.9 - Gastro-esophageal reflux disease without esophagitis (ICD-10) Chronic constipation ?K59.09 - Other constipation (ICD-10) Hematemesis ?K92.0 - Hematemesis (ICD-10) Anxiety and depression ?F41.9 - Anxiety disorder, unspecified (ICD-10) ?F32.A - Depression, unspecified (ICD-10) ESRD on hemodialysis ?N18.6 - End stage renal disease (ICD-10) ?Z99.2 - Dependence on renal dialysis (ICD-10) Secondary hyperparathyroidism (of renal origin) ?N25.81 - Secondary hyperparathyroidism of renal origin (ICD-10) Surgical History History of colectomy ?Z90.49 - Acquired absence of other specified parts of digestive tract (ICD- 10) History of cholecystectomy ?Z90.49 - Acquired absence of other specified parts of digestive tract (ICD- 10) Social History Smoking Status: Former smoker Do you use any of these nicotine containing products: None Second hand tobacco smoke exposure: No How often do you have a drink containing alcohol: never How often do you have six or more drinks on one occasion: Never AUDIT-C Alcohol total score: 0 Non-prescribed substance use: marijuana (any form) service: No Exam Narrative: Exam Narrative: Objective: Patient is in mild distress and discomfort, he is tearful His vital signs look within normal limits other than systolic pressure is 145, he is afebrile, O2 sats 100% on room air HEENT is unremarkable no facial asymmetry, mouth appears well hydrated Neck is supple Pulses regular Abdomen is mild tenderness over his epigastrium, no masses, no rebound or peritonitis, bowel sounds normoactive Extremities without edema neurologic nonfocal Const: Vital Signs, click to edit/add: Vital Signs - 24 hr 01/21/23 14:38 Temperature 98.0 F Pulse Rate [Pulse Oximeter] 72 Respiratory Rate 16 Blood Pressure [Ri ght Upper Arm] 145/76 H Pulse Oximetry 100 Oxygen Delivery Me thod Room Air Course Vital Signs Vital signs: Initial Vital Signs Temperature 98.0 F 01/21/23 14:38 Temperature Source Temporal Artery Scan 01/21/23 14:38 Pulse Rate 72 01/21/23 14:38 Respiratory Rate 16 01/21/23 14:38 Blood Pressure 145/76 H 01/21/23 14:38 Blood Pressure Mean 99 01/21/23 14:38 Blood Pressure Position Supine 01/21/23 14:38 Pulse Oximetry 100 01/21/23 14:38 Oxygen Delivery Method Room Air 01/21/23 14:38 Vital Signs Temperature 98.0 F 01/21/23 14:38 Pulse Rate 72 01/21/23 14:38 Respiratory Rate 16 01/21/23 14:38 Blood Pressure 145/76 H 01/21/23 14:38 Pulse Oximetry 100 01/21/23 14:38 Oxygen Delivery Method Room Air 01/21/23 14:38 Temperature 98.0 F 01/21/23 14:38 Pulse Rate 72 01/21/23 14:38 Respiratory Rate 16 01/21/23 14:38 Blood Pressure 145/76 H 01/21/23 14:38 Pulse Oximetry 100 01/21/23 14:38 Oxygen Delivery Method Room Air 01/21/23 14:38 Medical Decision Making MDM Narrative Medical decision making narrative: The patient is a 53-year-old male who is on dialysis has chronic abdominal pain, now has C diff and is scheduled for a fecal transplant at some point. He reports increasing pain today. Will check a CT of his abdomen, will give him IM morphine for pain control to be morbid long lasting, and will check his laboratory studies if these are reassuring and being be allowed to go home and light activity light diet. Needs to adjust his medicines to watch his blood sugar, he is also on oxycodone daily it appears. ADDENDUM 4:49 P.M.: THE PATIENT CT scan of the abdomen is read as negative, no acute process. Patient was able eat a little bit of a sandwich. His lab studies also look very reassuring. I think he can be discharged home, light activity, recommend a full liquid diet such as broth, Jell-O, yogurt. Update his regular doctor tomorrow or within the next day or 2. He does have oral pain medicines at home he can use as needed. Should follow-up sooner problems or concerns. Lab Data Labs: Lab Results 01/21/23 01/21/23 Range/Units 14:40 14:50 WBC 6.37 (4.50-11.00) K/uL RBC 4.10 L (4.30-5.90) m/uL Hgb 12.8 L (13.5-17.5) gm/dL Hct 40.1 (37.0-53.0) % MCV 98 (80-100) fL MCH 31 (26-34) pg MCHC 32 (32-36) gm/dL RDW Coeff of Mike 13.8 (11.5-15.5) % Plt Count 190 (140-440) K/uL Neut % (Auto) 70.3 (42.0-72.0) % Lymph % (Auto) 17.0 L (20-44) % [place] % (Auto) 8.3 (0.0-11.0) % Eos % (Auto) 3.1 (0.0-7.0) % Baso % (Auto) 0.5 (0.0-3.0) % Neut # (Auto) 4.50 (1.7-7.0) K/uL Lymph # (Auto) 1.10 (0.90-2.90) K/uL [place] # (Auto) 0.50 (0.00-0.90) K/UL Eos # (Auto) 0.20 (0.00-0.50) K/uL Baso # (Auto) 0.00 (0.00-0.30) K/uL Abs Immat Gran (auto) 0.10 (0.00-0.30) K/uL Imm/Tot Granulo (auto) 0.8 % Sodium 135 (135-149) mmol/L Potassium 5.4 H (3.6-5.1) mmol/L Chloride 99 (96-114) mmol/L Carbon Dioxide 31 (20-32) mmol/L Anion Gap 5 L (7-15) mEq/L BUN 7 (7-30) mg/dL Creatinine 7.0 H (0.5-1.5) mg/dL Estimated Creat Clear 10.74 Estimated GFR 9 ml/min Glucose 77 (60-115) mg/dL Calcium 9.9 (8.4-10.6) mg/dL Total Bilirubin 0.6 (0.1-1.5) mg/dL Direct Bilirubin 0.3 (0.0-0.5) mg/dL AST 40 H (12-35) U/L ALT 26 (4-50) U/L Alkaline Phosphatase 113 (40-150) U/L C-Reactive Protein < 0.5 L (0.5-1.0) mg/dL Total Protein 7.1 (6.0-8.3) g/dL Albumin 4.0 (3.3-5.0) g/dL Amylase 95 H (18-89) U/L POC Glucose 81 (60-115) mg/dl Discharge Plan Discharge Clinical Impression: Abdominal pain Patient Disposition: Home w/ Parent or Adult Condition: Stable Additional Instructions: Continue meds as at home, light activity, full liquid diet, start with broth and yogurt, Jell-O, advances able. Update your regular doctor tomorrow with symptoms and problems, return as needed. Continue dialysis as normally plan Activity Level: Light activity Discharge Diet: Full Liquid Prescriptions: No Action cyclobenzaprine 10 mg tablet 10 mg PO TID PRN Patient Comments: TAKE 1 TABLET (10 MG) BY MOUTH 3 TIMES DAILY IF NEEDED FOR MUSCLE SPASM. atorvastatin 40 mg tablet 40 mg PO DAILY Patient Comments: TAKE ONE TABLET BY MOUTH AT BEDTIME sennosides [Suyapa-ulysses] 8.6 mg tablet 8.6 mg PO DAILY PRN Patient Comments: TAKE 1 TABLET (8.6 MG) BY MOUTH 2 TIMES DAILY. vancomycin 125 mg capsule Patient Comments: TAKE ONE CAPSULE BY MOUTH FOUR TIMES A DAY ondansetron 8 mg tablet,disintegrating 8 mg PO Q8H PRN Patient Comments: PLACE 1 TABLET (8MG) ON THE TONGUE EVERY 8 HOURS IF NEEDED FOR NAUSEA/VOMITING. lidocaine-prilocaine 2.5-2.5 % cream 1 applic topical DAILY Patient Comments: APPLY SMALL AMOUNT TO ACCESS SITE (AVF) 1 TO 2 HOURS BEFORE DIALYSIS. COVER WITH OCCLUSIVE DRESSING (SARAN WRAP) lorazepam 0.5 mg tablet 0.5 mg PO Q12H PRN Patient Comments: TAKE ONE TABLET BY MOUTH ON DIALYSIS DAYS AND CAN TAKE TAKE ONE TABLET TWICE A DAY NEEDED ON NON-DIALYSIS DAYS FOR ANXIETY amlodipine 10 mg tablet 10 mg PO DAILY Patient Comments: TAKE ONE TABLET BY MOUTH ONCE DAILY polyethylene glycol 3350 17 gram/dose powder 17 g PO DAILY PRN Patient Comments: MIX 1 SCOOP (17 G) IN LIQUID THEN TAKE BY MOUTH 2 TIMES DAILY IF NEEDED FOR CONSTIPATION. oxycodone 5 mg tablet 5 mg PO PRN hydroxyzine pamoate 25 mg capsule 25 mg PO Q6-12H PRN Patient Comments: TAKE 1-2 CAPSULES (25-50 MG) BY MOUTH EVERY 6 HOURS IF NEEDED. metoprolol tartrate 25 mg tablet 25 mg PO Q12H Patient Comments: TAKE ONE TABLET BY MOUTH TWICE A DAY. ON DIALYSIS DAYS TAKE THIS AFTERWARDS sevelamer carbonate 800 mg tablet 2,400 mg PO TID Patient Comments: TAKE 4 TABLETS BY MOUTH THREE TIMES DAILY WITH MEALS AND 3 TABLETS TWICE JE Y WITH SNACKS diclofenac sodium 1 % gel TOPICAL Patient Comments: APPLY 2 G TOPICALLY TO AFFECTED AREA(S) 4 TIMES DAILY. Auryxia 210 mg iron tablet 2 tab PO TID Patient Comments: TAKE 2 TABLETS BY MOUTH THREE TIMES A DAY WITH MEALS AND 1 TABLET TWICE A DAY WITH SNACKS. SWALLOW WHOLE, DO NOT CHEW OR CRUSH MEDICATION RenaPlex-D 800 mcg-12.5 mg -2,000 unit tablet 1 tab PO DAILY Patient Comments: TAKE 1 TABLET BY MOUTH EVERY DAY WITH THE EVENING MEAL hydrocodone-acetaminophen 5-325 mg tablet 1 tab PO Q8H PRN (Reason: pain) Qty: 10 0RF fidaxomicin 200 mg tablet 200 mg PO BID 10 Days Qty: 20 0RF Rx Instructions: May need PA. His C Diff is resistant to Flagyl and Vanco. Movantik 12.5 mg tablet 12.5 mg PO QAM Qty: 5 0RF Rx Instructions: must be taken on empty stomach; no food 1 hr after or 2-3 hrs before dose vancomycin [Vancocin] 125 mg capsule 125 mg PO QID Qty: 40 0RF Follow Up/Referrals: Antonietta Lombardo MD [Referring] - Stand Alone Forms: [facility] Info Instructions
[2023-01-21] MEDS: MORPHINE 10 MG/ML inj 7.5 MG IM (15:06)
[2023-01-21 15:09] LABS: Hematocrit 40.1 % (37.0-53.0); Hemoglobin* 12.8 gm/dL (13.5-17.5); Mean Corpuscular Volume 98 fL (80-100); White Blood Count* 6.37 K/uL (4.50-11.00)
[2023-01-21 15:10] LABS: Basophils Percent Auto 0.5 % (0.0-3.0); Eosinophils Percent Auto 3.1 % (0.0-7.0); Immature Granulocytes Pct Auto 0.8 %; Mean Corpuscular HGB Conc 32 gm/dL (32-36); Mean Corpuscular Hemoglobin 31 pg (26-34); Monocytes Percent Auto 8.3 % (0.0-11.0); Neutrophils Percent Auto 70.3 % (42.0-72.0); Platelet Count* 190 K/uL (140-440); RDW Coefficient of Variation % 13.8 % (11.5-15.5); Slide Review Reflex No
--- NOTE | 2023-01-21 15:31 | ED.NURSE ---
Doctor would like pt to eat, this nurse brought in apple juice and sandwich and pt refused food.
[2023-01-21 15:36] LABS: Chloride* 99 mmol/L (96-114); Sodium* 135 mmol/L (135-149)
[2023-01-21 15:37] LABS: Potassium* 5.4 mmol/L (3.6-5.1)
[2023-01-21 15:40] LABS: Alanine Aminotransferase* 26 U/L (4-50); Alkaline Phosphatase* 113 U/L (40-150); Amylase* 95 U/L (18-89); Anion Gap 5 mEq/L (7-15); Aspartate Amino Transferase* 40 U/L (12-35); Bilirubin Direct* 0.3 mg/dL (0.0-0.5); Bilirubin Total* 0.6 mg/dL (0.1-1.5); Blood Urea Nitrogen* 7 mg/dL (7-30); Calcium* 9.9 mg/dL (8.4-10.6); Carbon Dioxide* 31 mmol/L (20-32); Est. Creatinine Clearance* 10.74; Estimated Glomerular Filt Rate 9 ml/min; Glucose* 77 mg/dL (60-115); Total Protein* 7.1 g/dL (6.0-8.3)
[2023-01-21 15:45] LABS: C Reactive Protein* < 0.5 mg/dL (0.5-1.0)
[2023-01-21 16:08] LABS: Glucose, Point-of-Care* 81 mg/dl (60-115)
== END 2023-01-21 17:01 | disposition home or self-care (01) ==
PROVIDERS: Emergency Provider Family Medicine; PCP Physician Assistant
DX: R10.9 Unspecified abdominal pain (principal)
CPT/HCPCS: 36415; 74176; 80048; 80076; 82150; 82947; 85025; 86140; 96372; 99284; J2270

== ENCOUNTER 2023-02-11 13:38 | Outpatient (CLI) | payer MEDICARE, OTHER, SELFPAY | END 2023-02-11 13:39 | disposition home or self-care (01) | LOC: AMB 02-14 09:50 | PROVIDERS: PCP Physician Assistant; Visit Provider Family Medicine | DX: R42 Dizziness and giddiness (principal); R11.2 Nausea with vomiting, unspecified | CPT/HCPCS: A0425; A0427 ==

== ENCOUNTER 2023-02-11 14:03 | Emergency (ER) | payer MEDICARE, OTHER, SELFPAY ==
[2023-02-11 14:06] VITALS: BP 166/86; PULSE 76; RESP 20; TEMP 36.6; O2SAT 100; BMI 23.3
[2023-02-11 14:33] LABS: Glucose, Point-of-Care* 99 mg/dl (60-115)
--- NOTE | 2023-02-11 14:35 | ED_ITS ---
HPI - General Adult General Chief complaint: Nausea/Vomiting Stated complaint: Nausea, dizziness Time Seen by Provider: 02/11/23 14:05 Source: patient Mode of arrival: EMS Limitations: no limitations History of Present Illness HPI narrative: 53-year-old male coming in today complaining of not feeling well. Patient states that he was at dialysis today when all the sudden he became lightheaded. EMS was called he was brought into the ER. He denies any recent illness. States he has been feeling fine otherwise. States that he felt a little lightheaded and off balance today, denies any vertiginous symptoms. States that he felt slightly nauseated but did not vomit. He denies any fevers or chills. He denies any chest or abdominal pain. No urinary symptoms. No upper respiratory symptoms. He does have chronic back pain this is unchanged. Related Data Home Medications Medication Instructions Recorded Confirmed amlodipine 10 mg tablet 10 mg PO DAILY 12/26/21 02/11/23 atorvastatin 40 mg tablet 40 mg PO DAILY 12/26/21 02/11/23 diclofenac sodium 1 % topical gel 2 g topical 12/26/21 ferric citrate 210 mg iron tablet 2 tab PO TID 12/26/21 02/11/23 (Auryxia) lidocaine-prilocaine 2.5 %-2.5 % 1 applic topical DAILY 12/26/21 02/11/23 topical cream metoprolol tartrate 25 mg tablet 25 mg PO Q12H 12/26/21 02/11/23 ondansetron 8 mg disintegrating 8 mg PO Q8H PRN 12/26/21 02/11/23 tablet oxycodone 5 mg tablet 5 mg PO Q6H PRN 12/26/21 02/11/23 sennosides 8.6 mg tablet (Suyapa-ulysses) 8.6 mg PO DAILY PRN 12/26/21 02/11/23 sevelamer carbonate 800 mg tablet 2,400 mg PO TID 12/26/21 08/15/22 vit B,C-folic ac 800 mcg-zinc 12.5 1 tab PO DAILY 12/26/21 02/11/23 mg-selen-D3 2,000 unit-vit E tablet (RenaPlex-D) sucralfate 100 mg/mL oral 1 g PO BID 02/11/23 02/11/23 suspension (Carafate) tizanidine 2 mg tablet 2 mg PO QPM 02/11/23 02/11/23 Previous Rx's Medication Instructions Recorded fidaxomicin 200 mg tablet 200 mg PO BID 10 days #20 tabs 10/21/22 naloxegol 12.5 mg tablet (Movantik) 12.5 mg PO QAM #5 tabs 12/02/22 Allergies Allergy/AdvReac Type Severity Reaction Status Date / Time lisinopril Allergy Severe angioedema Verified 01/21/23 14:44 Penicillins Allergy Unknown Verified 01/21/23 14:44 hydromorphone [From Dilaudid] AdvReac nausea/vomi Verified 01/21/23 14:44 ting Review of Systems Status of ROS: Reports: 10 or more systems reviewed and unremarkable except as noted in History and below [facility] Medical History Type 2 diabetes mellitus, without long-term current use of insulin ?E11.9 - Type 2 diabetes mellitus without complications (ICD-10) Hypertension ?I10 - Essential (primary) hypertension (ICD-10) Malignant neoplasm of sigmoid colon ?C18.7 - Malignant neoplasm of sigmoid colon (ICD-10) Spondylosis of lumbar region without myelopathy or radiculopathy ?M47.816 - Spondylosis without myelopathy or radiculopathy, lumbar region (ICD-10) Bilateral hip pain ?M25.551 - Pain in right hip (ICD-10) ?M25.552 - Pain in left hip (ICD-10) Spinal stenosis, lumbar region without neurogenic claudication ?M48.061 - Spinal stenosis, lumbar region without neurogenic claudication (ICD-10) Lumbar foraminal stenosis ?M48.061 - Spinal stenosis, lumbar region without neurogenic claudication (ICD-10) Chronic abdominal pain ?R10.9 - Unspecified abdominal pain (ICD-10) ?G89.29 - Other chronic pain (ICD-10) Chronic pain of both shoulders ?M25.511 - Pain in right shoulder (ICD-10) ?M25.512 - Pain in left shoulder (ICD-10) ?G89.29 - Other chronic pain (ICD-10) Peripheral polyneuropathy ?G62.9 - Polyneuropathy, unspecified (ICD-10) Chronic thoracic back pain ?M54.6 - Pain in thoracic spine (ICD-10) ?G89.29 - Other chronic pain (ICD-10) GERD (gastroesophageal reflux disease) ?K21.9 - Gastro-esophageal reflux disease without esophagitis (ICD-10) Chronic constipation ?K59.09 - Other constipation (ICD-10) Hematemesis ?K92.0 - Hematemesis (ICD-10) Anxiety and depression ?F41.9 - Anxiety disorder, unspecified (ICD-10) ?F32.A - Depression, unspecified (ICD-10) ESRD on hemodialysis ?N18.6 - End stage renal disease (ICD-10) ?Z99.2 - Dependence on renal dialysis (ICD-10) Secondary hyperparathyroidism (of renal origin) ?N25.81 - Secondary hyperparathyroidism of renal origin (ICD-10) Surgical History History of colectomy ?Z90.49 - Acquired absence of other specified parts of digestive tract (ICD- 10) History of cholecystectomy ?Z90.49 - Acquired absence of other specified parts of digestive tract (ICD- 10) Social History Smoking Status: Former smoker Do you use any of these nicotine containing products: None Second hand tobacco smoke exposure: No How often do you have a drink containing alcohol: never How often do you have six or more drinks on one occasion: Never AUDIT-C Alcohol total score: 0 Non-prescribed substance use: marijuana (any form) service: No Exam Narrative: Exam Narrative: Well-nourished well-developed patient in no acute distress. Alert and oriented x3. Answers questions appropriately. Patient speaks in full sentences without needing to catch his breath. HEENT: Normocephalic atraumatic. Pupils are equally round reactive to light. Extraocular muscles are intact. Conjunctivae are moist without any icterus noted. Moist mucous membranes. Posterior pharynx is normal. Neck is soft without any lymphadenopathy or thyromegaly. No masses are appreciated. Cardiovascular: Heart is regular rate and rhythm. Lungs: Clear to auscultation bilaterally no wheezes rhonchi or rales are appreciated. Patient takes deep breaths without any discomfort. Abdomen: Soft and nontender nondistended with normal bowel sounds. Extremities: Bilateral lower extremities are without edema. Skin: Well perfused without any obvious rashes. Strength is 5/5 of the upper and lower extremities. Reflexes are 2+ and symmetric at the knees. Cranial nerves 3-12 are normal. Vszdro-sb-[id number] is normal. There is no nystagmus either horizontally or vertically. Const: Vital Signs, click to edit/add: Vital Signs - 24 hr 02/11/23 14:06 Temperature 97.8 F Pulse Rate [Right Pulse Oximeter] 76 Respiratory Rate 20 Blood Pressure [Ri ght Upper Arm] 166/86 H Pulse Oximetry 100 Oxygen Delivery Me thod Room Air Course Course ED Course: Discussed the workup with the patient today which would include lab work. Patient states that he does not interested in a workup today. He states that he feels better already, states that he is fine and that he is ready to go home at this time. Vital Signs Vital signs: Initial Vital Signs Temperature 97.8 F 02/11/23 14:06 Temperature Source Temporal Artery Scan 02/11/23 14:06 Pulse Rate 76 02/11/23 14:06 Pulse Rhythm Regular 02/11/23 14:06 Respiratory Rate 20 02/11/23 14:06 Blood Pressure 166/86 H 02/11/23 14:06 Blood Pressure Mean 112 H 02/11/23 14:06 Blood Pressure Position Semi-Fowlers 02/11/23 14:06 Pulse Oximetry 100 02/11/23 14:06 Oxygen Delivery Method Room Air 02/11/23 14:06 Vital Signs Temperature 97.8 F 02/11/23 14:06 Pulse Rate 76 02/11/23 14:06 Respiratory Rate 20 02/11/23 14:06 Blood Pressure 166/86 H 02/11/23 14:06 Pulse Oximetry 100 02/11/23 14:06 Oxygen Delivery Method Room Air 02/11/23 14:06 Temperature 97.8 F 02/11/23 14:06 Pulse Rate 76 02/11/23 14:06 Respiratory Rate 20 02/11/23 14:06 Blood Pressure 166/86 H 02/11/23 14:06 Pulse Oximetry 100 02/11/23 14:06 Oxygen Delivery Method Room Air 02/11/23 14:06 Medical Decision Making MDM Narrative Medical decision making narrative: 53-year-old male with an episode of lightheadedness that has since resolved. Patient requesting to go home without further workup today. Given that he is feeling better I do not see a problem with this. Lab Data Labs: Lab Results 02/11/23 Range/Units 14:29 POC Glucose 99 (60-115) mg/dl Discharge Plan Discharge Clinical Impression: Light-headed feeling Patient Disposition: Home, Self-Care Condition: Stable Additional Instructions: Follow-up with primary care as needed. Return to the ER if symptoms return or worsen. Prescriptions: No Action atorvastatin 40 mg tablet 40 mg PO DAILY Patient Comments: TAKE ONE TABLET BY MOUTH AT BEDTIME sennosides [Suyapa-ulysses] 8.6 mg tablet 8.6 mg PO DAILY PRN Patient Comments: TAKE 1 TABLET (8.6 MG) BY MOUTH 2 TIMES DAILY. ondansetron 8 mg tablet,disintegrating 8 mg PO Q8H PRN Patient Comments: PLACE 1 TABLET (8MG) ON THE TONGUE EVERY 8 HOURS IF NEEDED FOR NAUSEA/VOMITING. lidocaine-prilocaine 2.5-2.5 % cream 1 applic topical DAILY Patient Comments: APPLY SMALL AMOUNT TO ACCESS SITE (AVF) 1 TO 2 HOURS BEFORE DIALYSIS. COVER WITH OCCLUSIVE DRESSING (SARAN WRAP) amlodipine 10 mg tablet 10 mg PO DAILY Patient Comments: TAKE ONE TABLET BY MOUTH ONCE DAILY oxycodone 5 mg tablet 5 mg PO Q6H PRN metoprolol tartrate 25 mg tablet 25 mg PO Q12H Patient Comments: TAKE ONE TABLET BY MOUTH TWICE A DAY. ON DIALYSIS DAYS TAKE THIS AFTERWARDS sevelamer carbonate 800 mg tablet 2,400 mg PO TID Patient Comments: TAKE 4 TABLETS BY MOUTH THREE TIMES DAILY WITH MEALS AND 3 TABLETS TWICE DAILY WITH SNACKS diclofenac sodium 1 % gel 2 g TOPICAL Patient Comments: APPLY 2 G TOPICALLY TO AFFECTED AREA(S) 4 TIMES DAILY. Auryxia 210 mg iron tablet 2 tab PO TID Patient Comments: TAKE 2 TABLETS BY MOUTH THREE TIMES A DAY WITH MEALS AND 1 TABLET TWICE A DAY WITH SNACKS. SWALLOW WHOLE, DO NOT CHEW OR CRUSH MEDICATION RenaPlex-D 800 mcg-12.5 mg -2,000 unit tablet 1 tab PO DAILY Patient Comments: TAKE 1 TABLET BY MOUTH EVERY DAY WITH THE EVENING MEAL fidaxomicin 200 mg tablet 200 mg PO BID 10 Days Qty: 20 0RF Rx Instructions: May need PA. His C Diff is resistant to Flagyl and Vanco. Movantik 12.5 mg tablet 12.5 mg PO QAM Qty: 5 0RF Rx Instructions: must be taken on empty stomach; no food 1 hr after or 2-3 hrs before dose sucralfate [Carafate] 100 mg/mL suspension 1 g PO BID tizanidine 2 mg tablet 2 mg PO QPM Follow Up/Referrals: Rosamaria Garcia PA-C [Primary Care Provider] - Stand Alone Forms: [employer] Info Instructions
== END 2023-02-11 14:45 | disposition home or self-care (01) ==
LOC: ED 14:44
PROVIDERS: Emergency Provider Family Medicine; PCP Physician Assistant
DX: R42 Dizziness and giddiness (principal)
CPT/HCPCS: 80048; 80076; 82947; 83735; 85025; 86140; 99283

== ENCOUNTER 2023-02-25 15:39 | Emergency (ER) | payer MEDICARE, OTHER, SELFPAY ==
[2023-02-25 16:41] VITALS: BP 159/83; PULSE 77; RESP 16; TEMP 36.4; O2SAT 99; BMI 23.3
[2023-02-25 16:59] LABS: Basophils Absolute Auto 0.02 K/uL (0.00-0.30); Basophils Percent Auto 0.3 % (0.0-3.0); Eosinophils Absolute Auto 0.23 K/uL (0.00-0.50); Eosinophils Percent Auto 3.5 % (0.0-7.0); Hematocrit 31.9 % (37.0-53.0); Hemoglobin* 9.9 gm/dL (13.5-17.5); Immature Granulocytes Abs Auto 0.08 K/uL (0.00-0.30); Immature Granulocytes Pct Auto 1.2 %; Lymphocytes Percent Auto 15.7 % (20-44); Mean Corpuscular HGB Conc 31 gm/dL (32-36); Mean Corpuscular Hemoglobin 30 pg (26-34); Mean Corpuscular Volume 97 fL (80-100); Neutrophils Absolute Auto 4.54 K/uL (1.7-7.0); Neutrophils Percent Auto 68.3 % (42.0-72.0); Platelet Count* 188 K/uL (140-440); RDW Coefficient of Variation % 14.4 % (11.5-15.5); Red Blood Count 3.28 m/uL (4.30-5.90); White Blood Count* 6.64 K/uL (4.50-11.00)
[2023-02-25 17:05] LABS: Slide Review Reflex No
[2023-02-25 17:11] LABS: Troponin, Point-of-Care* 0.01 ng/ml (0.01-0.04)
[2023-02-25 17:15] LABS: Chloride* 105 mmol/L (96-114)
[2023-02-25 17:16] LABS: Potassium* 4.8 mmol/L (3.6-5.1); Sodium* 140 mmol/L (135-149)
[2023-02-25 17:18] LABS: Creatinine* 10.7 mg/dL (0.5-1.5); Est. Creatinine Clearance* 7.02; Estimated Glomerular Filt Rate 5 ml/min
[2023-02-25 17:19] LABS: Anion Gap 6 mEq/L (7-15); Blood Urea Nitrogen* 24 mg/dL (7-30); Calcium* 9.5 mg/dL (8.4-10.6); Carbon Dioxide* 29 mmol/L (20-32); Glucose* 107 mg/dL (60-115)
== END 2023-02-25 18:06 | disposition left against medical advice (07) ==
PROVIDERS: Emergency Provider Family Medicine; PCP Physician Assistant
DX: Z53.21 Procedure and treatment not carried out due to patient leaving prior to being seen by health care provider (principal)
CPT/HCPCS: 36415; 80048; 84484; 85025; 93005

== ENCOUNTER 2023-03-14 23:33 | Outpatient (CLI) | payer MEDICARE, OTHER, SELFPAY | END 2023-03-14 23:34 | disposition home or self-care (01) | LOC: AMB 03-18 11:06 | PROVIDERS: PCP Physician Assistant; Visit Provider Emergency Medicine | DX: R10.9 Unspecified abdominal pain (principal) | CPT/HCPCS: A0425; A0427 ==

== ENCOUNTER 2023-03-14 23:52 | Emergency (ER) | payer MEDICARE, OTHER, SELFPAY ==
[2023-03-15 00:01] VITALS: BP 163/104; PULSE 85; RESP 20; TEMP 36.9; O2SAT 100
--- NOTE | 2023-03-15 00:28 | CRLHL7_ITS ---
For Patients: As a result of the Century Cures Act, medical imaging exams and procedure reports are released immediately into your electronic medical record. You may view this report before your referring provider. If you have questions, please contact your health care provider. INDICATION: Abdominal pain TECHNIQUE: Abdomen/Pelvis radiograph 3 views COMPARISON: 01/21/2023 FINDINGS: Bowel: The bowel gas pattern is normal without evidence of bowel obstruction. A moderate amount of stool is present in the rectosigmoid colon. Soft tissue: No evidence of pneumoperitoneum present. A 3 mm calcification is seen in the left upper quadrant which may represent a stone in the left renal midzone. Severe atherosclerotic calcifications of the abdominal aorta are present. There is linear clip in the right upper quadrant with a small adjacent metallic density. These may represent clips from prior cholecystectomy. Bone: Unremarkable for age. IMPRESSION: 1. Unremarkable appearance of the visualized abdomen. Dictated by Al Woodard MD @ 03/15/2023 1:06:06 AM Dictated by: Al Woodard MD @ 03/15/2023 01:06:09 (Electronically Signed)
--- NOTE | 2023-03-15 00:31 | ED_ITS ---
HPI - General Adult General Chief complaint: Abdominal Pain Stated complaint: Abdominal Pain Time Seen by Provider: 03/14/23 23:57 Source: patient Limitations: no limitations History of Present Illness HPI narrative: 53-year-old male presents the emergency department by EMS with reported 11 hour history of abdominal pains since he finished dialysis. Initially tells me that the pain is constant and he tells me that it happens with every bowel movement. He is obviously not having continuous bowel movements for the last 11 hours so the history is a bit unclear. No fever, no injury or trauma. He reports that he has been vomiting at home and has not been able to hold anything down but he is observed sticking his fingers down his throat with an attempt to unsuccessfully induce vomiting on the cameras within the room. He reports that this is an ongoing problem and has been going on for years. He thought that it would improve with his fecal transplant which was apparently performed about 4 weeks ago hat [facility]. Patient reports that the last time he spoke with his specialist was about 3 weeks ago. The nursing teams able to pull some notes from [facility] which does detail frequent complaints of abdominal pain, freq uent workup. It looks like he had a colonoscopy back in November. No blood in his stools. No recent injury or trauma. When asked about medication regimen that he uses specifically for his stomach, he reports that there is an acid [employer] but he does not believe that he regularly takes it. He also reports that he takes 10 mg of oxycodone 3 times daily. He does not believe that he takes other GI medications. It is a very difficult interview. No dysuria, no difficulty breathing. He is not having recurrent watery stools today, reports that his bowels are stable for him which sounds as though he alternates between constipation and diarrhea. Past medical history is notable for end-stage renal disease, on chronic hemodialysis. He has also had a recent fecal transplant for recurrent C diff the records show that he has been on oxycodone for several years for chronic back pain. Medication list from [facility] reviewed as well. Allergies to penicillin with an intolerance to hydromorphone. Most recent labs reviewed from March 02 and March 09. ROS notable for the abdominal symptoms as described above, otherwise denies times 12 systems. Patient has had 4 CT scans of the abdomen pelvis in the last 7 months. Several similar ED visits as well. These notes and studies are reviewed. Related Data Home Medications Medication Instructions Recorded Confirmed amlodipine 10 mg tablet 10 mg PO DAILY 12/26/21 02/11/23 atorvastatin 40 mg tablet 40 mg PO DAILY 12/26/21 02/11/23 diclofenac sodium 1 % topical gel 2 g topical 12/26/21 ferric citrate 210 mg iron tablet 2 tab PO TID 12/26/21 02/11/23 (Auryxia) lidocaine-prilocaine 2.5 %-2.5 % 1 applic topical DAILY 12/26/21 02/11/23 topical cream metoprolol tartrate 25 mg tablet 25 mg PO Q12H 12/26/21 02/11/23 ondansetron 8 mg disintegrating 8 mg PO Q8H PRN 12/26/21 02/11/23 tablet oxycodone 5 mg tablet 5 mg PO Q6H PRN 12/26/21 02/11/23 sennosides 8.6 mg tablet (Suyapa-ulysses) 8.6 mg PO DAILY PRN 12/26/21 02/11/23 sevelamer carbonate 800 mg tablet 2,400 mg PO TID 12/26/21 08/15/22 vit B,C-folic ac 800 mcg-zinc 12.5 1 tab PO DAILY 12/26/21 02/11/23 mg-selen-D3 2,000 unit-vit E tablet (RenaPlex-D) sucralfate 100 mg/mL oral 1 g PO BID 02/11/23 02/11/23 suspension (Carafate) tizanidine 2 mg tablet 2 mg PO QPM 02/11/23 02/11/23 Previous Rx's Medication Instructions Recorded fidaxomicin 200 mg tablet 200 mg PO BID 10 days #20 tabs 10/21/22 naloxegol 12.5 mg tablet (Movantik) 12.5 mg PO QAM #5 tabs 12/02/22 Allergies Allergy/AdvReac Type Severity Reaction Status Date / Time lisinopril Allergy Severe angioedema Verified 01/21/23 14:44 Penicillins Allergy Unknown Verified 01/21/23 14:44 hydromorphone [From Dilaudid] AdvReac nausea/vomi Verified 01/21/23 14:44 ting PFS PFS Medical History Type 2 diabetes mellitus, without long-term current use of insulin ?E11.9 - Type 2 diabetes mellitus without complications (ICD-10) Hypertension ?I10 - Essential (primary) hypertension (ICD-10) Malignant neoplasm of sigmoid colon ?C18.7 - Malignant neoplasm of sigmoid colon (ICD-10) Spondylosis of lumbar region without myelopathy or radiculopathy ?M47.816 - Spondylosis without myelopathy or radiculopathy, lumbar region (ICD-10) Bilateral hip pain ?M25.551 - Pain in right hip (ICD-10) ?M25.552 - Pain in left hip (ICD-10) Spinal stenosis, lumbar region without neurogenic claudication ?M48.061 - Spinal stenosis, lumbar region without neurogenic claudication (ICD-10) Lumbar foraminal stenosis ?M48.061 - Spinal stenosis, lumbar region without neurogenic claudication (ICD-10) Chronic abdominal pain ?R10.9 - Unspecified abdominal pain (ICD-10) ?G89.29 - Other chronic pain (ICD-10) Chronic pain of both shoulders ?M25.511 - Pain in right shoulder (ICD-10) ?M25.512 - Pain in left shoulder (ICD-10) ?G89.29 - Other chronic pain (ICD-10) Peripheral polyneuropathy ?G62.9 - Polyneuropathy, unspecified (ICD-10) Chronic thoracic back pain ?M54.6 - Pain in thoracic spine (ICD-10) ?G89.29 - Other chronic pain (ICD-10) GERD (gastroesophageal reflux disease) ?K21.9 - Gastro-esophageal reflux disease without esophagitis (ICD-10) Chronic constipation ?K59.09 - Other constipation (ICD-10) Hematemesis ?K92.0 - Hematemesis (ICD-10) Anxiety and depression ?F41.9 - Anxiety disorder, unspecified (ICD-10) ?F32.A - Depression, unspecified (ICD-10) ESRD on hemodialysis ?N18.6 - End stage renal disease (ICD-10) ?Z99.2 - Dependence on renal dialysis (ICD-10) Secondary hyperparathyroidism (of renal origin) ?N25.81 - Secondary hyperparathyroidism of renal origin (ICD-10) Surgical History History of colectomy ?Z90.49 - Acquired absence of other specified parts of digestive tract (ICD- 10) History of cholecystectomy ?Z90.49 - Acquired absence of other specified parts of digestive tract (ICD- 10) Social History Smoking Status: Former smoker Do you use any of these nicotine containing products: None Second hand tobacco smoke exposure: No How often do you have a drink containing alcohol: never How often do you have six or more drinks on one occasion: Never AUDIT-C Alcohol total score: 0 Non-prescribed substance use: marijuana (any form) service: No Exam Const: Vital Signs, click to edit/add: Vital Signs - 24 hr 03/15/23 00:01 Temperature 98.5 F Pulse Rate [Left P ulse Oximeter] 85 Respiratory Rate 20 Blood Pressure [Ri ght Upper Arm] 163/104 H Pulse Oximetry 100 Oxygen Delivery Me thod Room Air Documenting provider has reviewed patient's vital signs: yes General appearance: well kempt Other: Seems uncomfortable but no signs of impairment. Does not appear acutely ill. HENMT: Common normals: normocephalic Head and scalp: normocephalic Face and sinus: normal facial exam Mouth: oral and palatal mucosa normal Throat: posterior oropharynx normal Eye: Common normals: conjunctivae normal General eye: normal appearance of both eyes Conjunctiva: conjunctiva(e) normal Resp: Common normals: normal respiratory effort and no use of accessory muscles Effort & inspection: able to speak in complete sentences Cardio: Common normals: regular rate, regular rhythm, S1 normal heart sound, S2 normal heart sound and no murmurs Rate: regular rate Rhythm: regular rhythm Heart sounds: S1 normal and S2 normal GI: Common normals: Normal to inspection, nondistended, normoactive bowel sounds present Other: He stiffens up his abdominal muscles but not in a typical guarding type of way. This makes the exam quite difficult. There are no obvious masses. No signs of injury or trauma on the skin. Bowel sounds are normoactive in all 4 quadrants. Extremity: Common normals: normal capillary refill and no pedal edema Other: AV graft versus fistula in left upper extremity noted. Overlying skin appears intact and normal. Neuro: Speech: speech normal Gait (neuro): normal gait Psych: Common normals: speech normal Appearance: well kempt Speech: no rmal speech Insight: fair Judgement: fair Skin: Common normals: no rashes or lesions noted General skin exam: no rashes or lesions noted Course Course ED Course: Undergoing abdominal pain of uncertain etiology. Differential diagnosis including pancreatitis, ischemic bowel, gastroenteritis, ongoing C diff colitis, perforation, obstruction, multiple others. My overall impression is that this is likely something chronic rather than acute. Multiple prior similar workups are reviewed. Patient will be given 10 mg of oral oxycodone and 4 mg of oral Zofran while we await lab studies. Basic labs including lipase, lactate, CRP, CBC, liver enzymes for comparison to previous values. I do not recommend a CT scan but will perform abdominal x-ray to look for free air, obstruction, other abnormality. Await findings. It is unclear why patient is attempting to induce vomiting on camera. Reevaluation(s) Reevaluation #1: Patient reports no significant improvement in pain. Vital signs remained stable. I have reviewed the normal x-ray and essentially normal labs with him. He was not surprised by this as this is typically the case. I let him know that thankfully I do not see signs of obstruction, perforation or other serious abnormality. I do see that this is greatly affecting his quality of life in of encouraged him to follow up with his GI team regarding this. As for his the emergency room tonight though, I do not think that he would benefit from any particular intervention or hospitalization at this time to manage an acute condition. This was discussed with him. He seems frustrated and tells me that ?this happens all the time?. It is quite clear that he has had multiple similar workups. Vital Signs Vital signs: Initial Vital Signs Temperature 98.5 F 03/15/23 00:01 Temperature Source Temporal Artery Scan 03/15/23 00:01 Pulse Rate 85 03/15/23 00:01 Pulse Rhythm Regular 03/15/23 00:01 Respiratory Rate 20 03/15/23 00:01 Blood Pressure 163/104 H 03/15/23 00:01 Blood Pressure Mean 123 H 03/15/23 00:01 Blood Pressure Position Supine 03/15/23 00:01 Pulse Oximetry 100 03/15/23 00:01 Oxygen Delivery Method Room Air 03/15/23 00:01 Vital Signs Temperature 98.5 F 03/15/23 00:01 Pulse Rate 85 03/15/23 00:01 Respiratory Rate 20 03/15/23 00:01 Blood Pressure 163/104 H 03/15/23 00:01 Pulse Oximetry 100 03/15/23 00:01 Oxygen Delivery Method Room Air 03/15/23 00:01 Temperature 98.5 F 03/15/23 00:01 Pulse Rate 85 03/15/23 00:01 Respiratory Rate 20 03/15/23 00:01 Blood Pressure 163/104 H 03/15/23 00:01 Pulse Oximetry 100 03/15/23 00:01 Oxygen Delivery Method Room Air 03/15/23 00:01 Medications Administered Medications: Discontinued Medications Generic Name Dose Route Start Last Admin Trade Name Freq PRN Reason Stop Dose Admin Famotidine 20 mg 03/15/23 00:28 03/15/23 01:00 Famotidine 20 Mg Tablet PO 03/15/23 00:29 20 mg ONCE ONE Administration Ondansetron HCl 4 mg 03/15/23 00:28 03/15/23 00:49 Ondansetron Odt 4 Mg Tab PO 03/15/23 00:29 Not Given ONCE ONE Oxycodone HCl 10 mg 03/15/23 00:28 03/15/23 01:00 Oxycodone 5 Mg Tablet PO 03/15/23 00:29 10 mg ONCE ONE Administration Medical Decision Making Lab Data Lab results reviewed: Yes I reviewed the patient's lab results Lab results narrative: Reassuring, consistent with stable for hemodialysis patient. Labs: Lab Results 03/15/23 Range/Units 00:50 WBC 10.35 (4.50-11.00) K/uL RBC 3.66 L (4.30-5.90) m/uL Hgb 11.3 L (13.5-17.5) gm/dL Hct 35.2 L (37.0-53.0) % MCV 96 (80-100) fL MCH 31 (26-34) pg MCHC 32 (32-36) gm/dL RDW Coeff of Mike 15.4 (11.5-15.5) % Plt Count 210 (140-440) K/uL Neut % (Auto) 78.8 H (42.0-72.0) % Lymph % (Auto) 13.9 L (20-44) % Gaines % (Auto) 5.4 (0.0-11.0) % Eos % (Auto) 1.0 (0.0-7.0) % Baso % (Auto) 0.5 (0.0-3.0) % Neut # (Auto) 8.20 H (1.7-7.0) K/uL Lymph # (Auto) 1.40 (0.90-2.90) K/uL Gaines # (Auto) 0.60 (0.00-0.90) K/UL Eos # (Auto) 0.10 (0.00-0.50) K/uL Baso # (Auto) 0.05 (0.00-0.30) K/uL Abs Immat Gran (auto) 0.04 (0.00-0.30) K/uL Imm/Tot Granulo (auto) 0.4 % Sodium 141 (135-149) mmol/L Potassium 5.9 H (3.6-5.1) mmol/L Chloride 102 (96-114) mmol/L Carbon Dioxide 27 (20-32) mmol/L Anion Gap 12 (7-15) mEq/L BUN 19 (7-30) mg/dL Creatinine 7.2 H (0.5-1.5) mg/dL Estimated GFR 8 ml/min Glucose 122 H (60-115) mg/dL Lactate 1.1 (0.5-1.9) mmol/L Calcium 9.9 (8.4-10.6) mg/dL Total Bilirubin 0.7 (0.1-1.5) mg/dL AST 41 H (12-35) U/L ALT 21 (4-50) U/L Alkaline Phosphatase 123 (40-150) U/L C-Reactive Protein 0.5 (0.5-1.0) mg/dL Total Protein 7.8 (6.0-8.3) g/dL Albumin 4.4 (3.3-5.0) g/dL Lipase 65 (23-300) U/L Imaging Data Abdominal x-ray: Attestation: I have reviewed the pertinent imaging results. My impression: Normal x-ray Radiologist's impression: IMPRESSION: 1. Unremarkable appearance of the visualized abdomen. Dictated by Al Woodard MD @ 03/15/2023 1:06:06 AM Discharge Plan Discharge Clinical Impression: Chronic abdominal pain Patient Disposition: Home, Self-Care Condition: Stable Instructions: Chronic Abdominal Pain (DC) Additional Instructions: I am thankful that we did not see any dangerous sign for your abdominal pain today like obstruction, perforation, pancreatitis or infection. I am sorry that this causes such as disruption in your life. I am sorry that I do not have a solution for you. I would like for you to follow-up with your GI team regarding the next steps in treating this chronic condition for you. In the meantime, please continue your acid [employer] medication and the pain medications that you have previously been prescribed. Come back to the emergency department if you start having significant amounts of bleeding, fevers or other signs of complication. Activity Level: No Restrictions Discharge Diet: Regular Prescriptions: No Action atorvastatin 40 mg tablet 40 mg PO DAILY Patient Comments: TAKE ONE TABLET BY MOUTH AT BEDTIME sennosides [Suyapa-ulysses] 8.6 mg tablet 8.6 mg PO DAILY PRN Patient Comments: TAKE 1 TABLET (8.6 MG) BY MOUTH 2 TIMES DAILY. ondansetron 8 mg tablet,disintegrating 8 mg PO Q8H PRN Patient Comments: PLACE 1 TABLET (8MG) ON THE TONGUE EVERY 8 HOURS IF NEEDED FOR NAUSEA/VOMITING. lidocaine-prilocaine 2.5-2.5 % cream 1 applic topical DAILY Patient Comments: APPLY SMALL AMOUNT TO ACCESS SITE (AVF) 1 TO 2 HOURS BEFORE DIALYSIS. COVER WITH OCCLUSIVE DRESSING (SARAN WRAP) amlodipine 10 mg tablet 10 mg PO DAILY Patient Comments: TAKE ONE TABLET BY MOUTH ONCE DAILY oxycodone 5 mg tablet 5 mg PO Q6H PRN metoprolol tartrate 25 mg tablet 25 mg PO Q12H Patient Comments: TAKE ONE TABLET BY MOUTH TWICE A DAY. ON DIALYSIS DAYS TAKE THIS AFTERWARDS sevelamer carbonate 800 mg tablet 2,400 mg PO TID Patient Comments: TAKE 4 TABLETS BY MOUTH THREE TIMES DAILY WITH MEALS AND 3 TABLETS TWICE DAILY WITH SNACKS diclofenac sodium 1 % gel 2 g TOPICAL Patient Comments: APPLY 2 G TOPICALLY TO AFFECTED AREA(S) 4 TIMES DAILY. Auryxia 210 mg iron tablet 2 tab PO TID Patient Comments: TAKE 2 TABLETS BY MOUTH THREE TIMES A DAY WITH MEALS AND 1 TABLET TWICE A DAY WITH SNACKS. SWALLOW WHOLE, DO NOT CHEW OR CRUSH MEDICATION RenaPlex-D 800 mcg-12.5 mg -2,000 unit tablet 1 tab PO DAILY Patient Comments: TAKE 1 TABLET BY MOUTH EVERY DAY WITH THE EVENING MEAL fidaxomicin 200 mg tablet 200 mg PO BID 10 Days Qty: 20 0RF Rx Instructions: May need PA. His C Diff is resistant to Flagyl and Vanco. Movantik 12.5 mg tablet 12.5 mg PO QAM Qty: 5 0RF Rx Instructions: must be taken on empty stomach; no food 1 hr after or 2-3 hrs before dose sucralfate [Carafate] 100 mg/mL suspension 1 g PO BID tizanidine 2 mg tablet 2 mg PO QPM Follow Up/Referrals: Rosamaria Garcia, AJITC [Primary Care Provider] - Stand Alone Forms: [facility] Info Instructions
[2023-03-15 00:56] LABS: Basophils Absolute Auto 0.05 K/uL (0.00-0.30); Basophils Percent Auto 0.5 % (0.0-3.0); Hematocrit 35.2 % (37.0-53.0); Hemoglobin* 11.3 gm/dL (13.5-17.5); Immature Granulocytes Abs Auto 0.04 K/uL (0.00-0.30); Immature Granulocytes Pct Auto 0.4 %; Lymphocytes Percent Auto 13.9 % (20-44); Mean Corpuscular HGB Conc 32 gm/dL (32-36); Mean Corpuscular Hemoglobin 31 pg (26-34); Mean Corpuscular Volume 96 fL (80-100); Monocytes Percent Auto 5.4 % (0.0-11.0); Neutrophils Percent Auto 78.8 % (42.0-72.0); Platelet Count* 210 K/uL (140-440); RDW Coefficient of Variation % 15.4 % (11.5-15.5); Red Blood Count 3.66 m/uL (4.30-5.90); White Blood Count* 10.35 K/uL (4.50-11.00)
[2023-03-15] MEDS: FAMOTIDINE 20 MG TABLET PO (01:00)
[2023-03-15] MEDS: OXYCODONE 5 MG TABLET 10 MG PO (01:00)
[2023-03-15 01:03] LABS: Lactate* 1.1 mmol/L (0.5-1.9); Slide Review Reflex No
[2023-03-15 01:14] LABS: Albumin* 4.4 g/dL (3.3-5.0); Chloride* 102 mmol/L (96-114)
[2023-03-15 01:15] LABS: Potassium* 5.9 mmol/L (3.6-5.1); Sodium* 141 mmol/L (135-149)
[2023-03-15 01:17] LABS: Bilirubin Total* 0.7 mg/dL (0.1-1.5); Creatinine* 7.2 mg/dL (0.5-1.5); Estimated Glomerular Filt Rate 8 ml/min
[2023-03-15 01:18] LABS: Alanine Aminotransferase* 21 U/L (4-50); Alkaline Phosphatase* 123 U/L (40-150); Anion Gap 12 mEq/L (7-15); Aspartate Amino Transferase* 41 U/L (12-35); Blood Urea Nitrogen* 19 mg/dL (7-30); Calcium* 9.9 mg/dL (8.4-10.6); Carbon Dioxide* 27 mmol/L (20-32); Glucose* 122 mg/dL (60-115); Lipase* 65 U/L (23-300); Total Protein* 7.8 g/dL (6.0-8.3)
[2023-03-15 01:20] LABS: C Reactive Protein* 0.5 mg/dL (0.5-1.0)
--- NOTE | 2023-03-15 02:28 | PC.NURSE ---
patient given DC instructions and IV removed, patient states he doesn't want to DC as he feels something is wrong with his stomach. offered patient to speak with MD again and patient refused, patient in room and states his pain and nausea are not better. went over DC instructions again. patient informed he has been Discharged from ER but was welcome to wait in his room as he sets up a ride home, [facility]
== END 2023-03-15 04:29 | disposition home or self-care (01) ==
PROVIDERS: Emergency Provider Family Medicine; PCP Physician Assistant
DX: R10.9 Unspecified abdominal pain (principal); G89.29 Other chronic pain
CPT/HCPCS: 36415; 74019; 80053; 83605; 83690; 85025; 86140; 99284; A9270

== ENCOUNTER 2023-03-16 11:55 | Outpatient (CLI) | payer MEDICARE, OTHER, SELFPAY | END 2023-03-16 11:56 | disposition home or self-care (01) | LOC: AMB 03-21 09:26 | PROVIDERS: PCP Physician Assistant; Visit Provider Family Medicine | DX: R10.9 Unspecified abdominal pain (principal) | CPT/HCPCS: A0425; A0427 ==

== ENCOUNTER 2023-04-21 01:43 | Outpatient (CLI) | payer MEDICARE, OTHER, SELFPAY | END 2023-04-21 01:44 | disposition home or self-care (01) | LOC: AMB 04-23 05:20 | PROVIDERS: PCP Physician Assistant; Visit Provider Family Medicine | DX: R10.9 Unspecified abdominal pain (principal) | CPT/HCPCS: A0425; A0427 ==

== ENCOUNTER 2023-04-21 02:05 | Emergency (ER) | payer MEDICARE, OTHER, SELFPAY ==
[2023-04-21] VITALS (14 sets, daily range): BP systolic 148–161; BP diastolic 84–100; PULSE 75–86; RESP 14–16; TEMP 36.8–37; O2SAT 93–100
--- NOTE | 2023-04-21 02:52 | ED.GENADULT ---
HPI - General Adult General Date Seen: 04/21/23 Chief complaint: Abdominal Pain Stated complaint: abdominal pain Time Seen by Provider: 04/21/23 02:27 History of Present Illness HPI narrative: This is a 53-year-old gentleman brought to the ER tonight from his home by EMS. History obtained from EMS is that he has a history of C diff. He has been experiencing upper abdominal pain (reminiscent of previous bouts of C diff) for the past several days, along with diarrhea, prompting him to call the ambulance at 2:00 a.m. this morning. They were able to establish an IV in his right antecubital fossa. He does dialysis through a fistula in his left arm. He normally dialyzes Mondays, Wednesdays, Fridays. He had to leave dialysis early on Tuesday because of abdominal pain and again left early yesterday (on Tuesday) because of abdominal pain. He has had a previous fecal transplant. History from the patient is that he has a history of C diff. He underwent a fecal transplant through [facility] a couple of months ago. He does not recall which hospital or facility went to to get the transplant. He sees delisa L[facility]pze in either [facility] or someplace else in the [facility]. He also has end-stage renal disease on dialysis. He dialyzes Tuesday, day Tuesday. He had leave dialysis or hour early because of abdominal pain yesterday on Tuesday, and about 45 minutes early on Tuesday because of abdominal pain. His pain started again this morning while at dialysis and was triggered when needed have a diarrhea bowel movement and persisted throughout the day. He says this is typical for his pain when he has C diff. He says it is severe in his right upper quadrant. He has had 2 loose stools today. No bloody diarrhea. He says the stools smelled bad, like his previous C diff. He has also been nauseous. He apparently has Zofran 0 DT that he normally takes at home for nausea but ran out of that. He also has oxycodone which he takes for his sciatica and for his abdominal pain. He has that in stock but could not keep it down. His pain persisted from before noon on Tuesday, throughout the afternoon, until [facility] [place] when he called the ambulance at around 2:00 a.m.. His pain was not really worse or changing it to a.m.. He just decided to call the ambulance. No fevers. In reviewing his medications tonight, he says he takes amlodipine, metoprolol, oxycodone (10 mg t.i.d.), recently ran out of Zofran, also takes some other pills that he is post take with meals to keep his phosphate up Past medical history includes end-stage renal disease on dialysis, C diff, chronic abdominal pain, previous colon cancer status post partial colectomy (patient believes he is in remission) In review of his med list, it includes Acetaminophen Aspirin 81 mg daily Atorvastatin 40 mg daily Ferric citrate 210 mg 2 tablets t.i.d. with meals Bisacodyl p.r.n. Senokot Flexeril Hydroxyzine 25 mg t.i.d. as needed Lidocaine patches Ativan metoprolol 25 mg twice daily MiraLax Zofran 8 mg tablet q.8 hours p.r.n. From his dialysis run on 04/18 Estimated dry weight 63 kg During his dialysis run on 04/18 is pre weight was 66.4 kg, post weight was 64 kg Recent lab works 04/06-BUN 31, 03/02-BUN 24 Through [facility] everywhere we can see the was seen in the ER in [place] on 03/16. According to those records he has a history of acute pancreatitis diagnosed in August 2019, chronic pain, chronically insufficiency, macrocytic anemia, anxiety, depression marijuana abuse, hyperlipidemia, coronado colitis, peripheral neuropathy, history of pneumonia and history of COVID, history of upper clot itis. Recurrent C diff diarrhea. Secondary hyperparathyroidism. Tobacco abuse disorder. Type 2 diabetes. Labs from 03/16: Sodium 134, potassium 6.4, chloride 95, bicarb 25, anion gap 14, glucose 125, calcium 10.5, BUN 30, creatinine 10.4 Albumin 4.4, total bilirubin 0.4 ALT 12, AST 30, alk-phos 94 Lipase 18.1 CRP less than 0.3 Venous lactate 1.1 WBC 7.7, hemoglobin 10.6, platelets 200 EKG shows sinus rhythm According to the ER notes from 03/16 he had been experiencing 2 days of abdominal pain with nausea and vomiting. Not responding to his Zofran 8 mg ODT. Intermittent marijuana use. He was seen in the ER on 03/15 for abdominal pain and had a negative workup. Per those notes it sounds like he has fecal transplant possibly in December. He was seen in the ER in January for dizziness. He was seen in the ER on 01/21 for abdominal pain. Negative workup. Related Data Home Medications Medication Instructions Recorded Confirmed amlodipine 10 mg tablet 10 mg PO DAILY 12/26/21 02/11/23 atorvastatin 40 mg tablet 40 mg PO DAILY 12/26/21 02/11/23 diclofenac sodium 1 % topical gel 2 g topical 12/26/21 ferric citrate 210 mg iron tablet 2 tab PO TID 12/26/21 02/11/23 (Auryxia) lidocaine-prilocaine 2.5 %-2.5 % 1 applic topical DAILY 12/26/21 02/11/23 topical cream metoprolol tartrate 25 mg tablet 25 mg PO Q12H 12/26/21 02/11/23 ondansetron 8 mg disintegrating 8 mg PO Q8H PRN 12/26/21 02/11/23 tablet oxycodone 5 mg tablet 5 mg PO Q6H PRN 12/26/21 02/11/23 sennosides 8.6 mg tablet (Suyapa-ulysses) 8.6 mg PO DAILY PRN 12/26/21 02/11/23 sevelamer carbonate 800 mg tablet 2,400 mg PO TID 12/26/21 08/15/22 vit B,C-folic ac 800 mcg-zinc 12.5 1 tab PO DAILY 12/26/21 02/11/23 mg-selen-D3 2,000 unit-vit E tablet (RenaPlex-D) sucralfate 100 mg/mL oral 1 g PO BID 02/11/23 02/11/23 suspension (Carafate) tizanidine 2 mg tablet 2 mg PO QPM 02/11/23 02/11/23 Previous Rx's Medication Instructions Recorded fidaxomicin 200 mg tablet 200 mg PO BID 10 days #20 tabs 10/21/22 naloxegol 12.5 mg tablet (Movantik) 12.5 mg PO QAM #5 tabs 12/02/22 Allergies Allergy/AdvReac Type Severity Reaction Status Date / Time lisinopril Allergy Severe angioedema Verified 01/21/23 14:44 Penicillins Allergy Unknown Verified 01/21/23 14:44 hydromorphone [From Dilaudid] AdvReac nausea/vomi Verified 01/21/23 14:44 ting [facility] Medical History Type 2 diabetes mellitus, without long-term current use of insulin ?E11.9 - Type 2 diabetes mellitus without complications (ICD-10) Hypertension ?I10 - Essential (primary) hypertension (ICD-10) Malignant neoplasm of sigmoid colon ?C18.7 - Malignant neoplasm of sigmoid colon (ICD-10) Spondylosis of lumbar region without myelopathy or radiculopathy ?M47.816 - Spondylosis without myelopathy or radiculopathy, lumbar region (ICD-10) Bilateral hip pain ?M25.551 - Pain in right hip (ICD-10) ?M25.552 - Pain in left hip (ICD-10) Spinal stenosis, lumbar region without neurogenic claudication ?M48.061 - Spinal stenosis, lumbar region without neurogenic claudication (ICD-10) Lumbar foraminal stenosis ?M48.061 - Spinal stenosis, lumbar region without neurogenic claudication (ICD-10) Chronic abdominal pain ?R10.9 - Unspecified abdominal pain (ICD-10) ?G89.29 - Other chronic pain (ICD-10) Chronic pain of both shoulders ?M25.511 - Pain in right shoulder (ICD-10) ?M25.512 - Pain in left shoulder (ICD-10) ?G89.29 - Other chronic pain (ICD-10) Peripheral polyneuropathy ?G62.9 - Polyneuropathy, unspecified (ICD-10) Chronic thoracic back pain ?M54.6 - Pain in thoracic spine (ICD-10) ?G89.29 - Other chronic pain (ICD-10) GERD (gastroesophageal reflux disease) ?K21.9 - Gastro-esophageal reflux disease without esophagitis (ICD-10) Chronic constipation ?K59.09 - Other constipation (ICD-10) Hematemesis ?K92.0 - Hematemesis (ICD-10) Anxiety and depression ?F41.9 - Anxiety disorder, unspecified (ICD-10) ?F32.A - Depression, unspecified (ICD-10) ESRD on hemodialysis ?N18.6 - End stage renal disease (ICD-10) ?Z99.2 - Dependence on renal dialysis (ICD-10) Secondary hyperparathyroidism (of renal origin) ?N25.81 - Secondary hyperparathyroidism of renal origin (ICD-10) Surgical History History of colectomy ?Z90.49 - Acquired absence of other specified parts of digestive tract (ICD-10) History of cholecystectomy ?Z90.49 - Acquired absence of other specified parts of digestive tract (ICD-10) Social History Smoking Status: Former smoker Do you use any of these nicotine containing products: None Second hand tobacco smoke exposure: No How often do you have a drink containing alcohol: never How often do you have six or more drinks on one occasion: Never AUDIT-C Alcohol total score: 0 Non-prescribed substance use: marijuana (any form) service: No Exam Const: Vital Signs, click to edit/add: Vital Signs - 24 hr 04/21/23 02:14 04/21/23 05:07 Temperature 98.6 F Pulse Rate [Pulse Oximeter] 86 83 Respiratory Rate 16 16 Blood Pressure [Ri ght Upper Arm] 161/100 H 153/92 H Pulse Oximetry 100 99 Oxygen Delivery Me thod Room Air Course Course ED Course: Recheck-back from CT had a flare pain and was rolling out around his bed. Reevaluation(s) Reevaluation #1: Recheck-fell asleep. Resting in bed. Recheck that about 6:10 a.m.. Sleeping but easily aroused. Says his pain is much improved. Resting more comfortably. Discussed with counselor nurses[facility] for [facility], Dr. Navneet Eaton. Given the patient's medical for air T and history of recurrent/refractory C diff with a fairly the brought expect of colitis, although is hemodynamically stable, recommendation is to get the patient admitted for observation and further testing. This would require transfer to a [facility] with GI capabilities were delisa López can consult. Typically this would be the [facility] system such as [facility] or possibly the [facility] system. Discussed with the patient. He has been admitted multiple times at [place] in the past. Discussed with the [facility] access center. They currently do not have any open beds. They will put the patient on their wait list. Unclear if he will get a bed [facility] today. Reevaluation #2: Recheck-sleeping. Pain tolerable a controlled for now. Reevaluation #3: Signed out to my partner, Dr. Serrato at shift change-8:00 a.m.. Continues to board here in the ER awaiting placement. Vital Signs Vital signs: Initial Vital Signs Temperature 98.6 F 04/21/23 02:14 Temperature Source Temporal Artery Scan 04/21/23 02:14 Pulse Rate 86 04/21/23 02:14 Respiratory Rate 16 04/21/23 02:14 Blood Pressure 161/100 H 04/21/23 02:14 Blood Pressure Mean 120 H 04/21/23 02:14 Blood Pressure Position Supine 04/21/23 02:14 Pulse Oximetry 100 04/21/23 02:14 Vital Signs Temperature 98.6 F 04/21/23 02:14 Pulse Rate 86 04/21/23 02:14 Respiratory Rate 16 04/21/23 02:14 Blood Pressure 161/100 H 04/21/23 02:14 Pulse Oximetry 100 04/21/23 02:14 Temperature 98.6 F 04/21/23 02:14 Pulse Rate 83 04/21/23 05:07 Respiratory Rate 16 04/21/23 05:07 Blood Pressure 153/92 H 04/21/23 05:07 Pulse Oximetry 99 04/21/23 05:07 Oxygen Delivery Method Room Air 04/21/23 05:07 Medications Administered Medications: Discontinued Medications Generic Name Dose Route Start Last Admin Trade Name Freq PRN Reason Stop Dose Admin Fentanyl 50 mcg 04/21/23 02:27 04/21/23 02:59 Fentanyl 100 Mcg/2 Ml Inj IVP 04/21/23 02:28 50 mcg ONCE ONE Administration Ondansetron HCl 4 mg 04/21/23 02:27 04/21/23 02:57 Ondansetron 2 Mg/Ml Inj IVP 04/21/23 02:28 4 mg ONCE ONE Administration Oxycodone HCl 10 mg 04/21/23 02:27 04/21/23 02:55 Oxycodone 5 Mg Tablet PO 04/21/23 02:28 10 mg ONCE ONE Administration Medical Decision Making [facility] Narrative Medical decision making narrative: Presented to the Emergency Department with epigastric and right upper quadrant abdominal pain and diarrhea ongoing since Tuesday. He has a history of recurrent bouts of C diff and even has undergone stool transplant a couple of months ago. He also has a history of partial colectomy for colon cancer years ago. Cancer thought to be in remission now.. The differential diagnosis of abdominal pain includes: Appendicitis, Bowel Obstruction, Ulcer, Ischemia, Cholecystitis, Diverticulitis, Pancreatitis, UTI, kidney stone, Enteritis/Colitis, amongst many other etiologies. aboratory testing does not reveal a cause for the patient's pain. White count normal. He is anemic but the near his baseline with hemoglobin 9.6. No symptoms of active bleeding. He was able to complete most of his dialysis run today. Creatinine is 7.7 but BUN is 15 and potassium is normal at 4.9. Is not showing physical exam findings of fluid overload or CHF. No need for emergent dialysis. CT imaging does show coronado colitis worse in the hepatic flexure and transverse colon where he is most tender. Discussed with the on-call provider for [facility]. We are concerned that this is probably a another recurrence of C diff. GI recommends inpatient evaluation given his medical complexity, risk for precipitous decompensation, and difficulty with outpatient follow-up during the holiday season. The exact etiology of the abdominal pain is not clear at this time. He is currently on the wait list for a bed at [facility] in the [facility] with dialysis and GI capabilities. He understands on the wait list and is agreeable to wait here in the ER. Lab Data Labs: Lab Results 04/21/23 Range/Units 02:50 WBC 5.51 (4.50-11.00) K/uL RBC 3.05 L (4.30-5.90) m/uL Hgb 9.6 L (13.5-17.5) gm/dL Hct 29.4 L (37.0-53.0) % MCV 96 (80-100) fL MCH 32 (26-34) pg MCHC 33 (32-36) gm/dL RDW Coeff of Mike 15.6 H (11.5-15.5) % Plt Count 208 (140-440) K/uL Neut % (Auto) 66.8 (42.0-72.0) % Lymph % (Auto) 20.7 (20-44) % Osborne % (Auto) 9.6 (0.0-11.0) % Eos % (Auto) 1.5 (0.0-7.0) % Baso % (Auto) 0.7 (0.0-3.0) % Neut # (Auto) 3.68 (1.7-7.0) K/uL Lymph # (Auto) 1.14 (0.90-2.90) K/uL Osborne # (Auto) 0.50 (0.00-0.90) K/UL Eos # (Auto) 0.08 (0.00-0.50) K/uL Baso # (Auto) 0.04 (0.00-0.30) K/uL Abs Immat Gran (auto) 0.04 (0.00-0.30) K/uL Imm/Tot Granulo (auto) 0.7 % Sodium 132 L (135-149) mmol/L Potassium 4.9 (3.6-5.1) mmol/L Chloride 101 (96-114) mmol/L Carbon Dioxide 22 (20-32) mmol/L Anion Gap 9 (7-15) mEq/L BUN 15 (7-30) mg/dL Creatinine 7.7 H (0.5-1.5) mg/dL Estimated GFR 8 ml/min Glucose 91 (60-115) mg/dL Lactate 0.6 (0.5-1.9) mmol/L Calcium 9.4 (8.4-10.6) mg/dL Total Bilirubin 0.4 (0.1-1.5) mg/dL AST 25 (12-35) U/L ALT 16 (4-50) U/L Alkaline Phosphatase 70 (40-150) U/L Total Protein 6.6 (6.0-8.3) g/dL Albumin 4.0 (3.3-5.0) g/dL Lipase 34 (23-300) U/L Imaging Data CT scan - abdomen: Attestation: I have reviewed the pertinent imaging results. Radiologist's impression: IMPRESSION: Pancolonic wall thickening most notably involving the hepatic flexure and proximal transverse colon. Finding concerning for nonspecific infectious/inflammatory pancolitis. Cannot exclude C diff. Bladder wall thickening which may relate to incomplete distention or cystitis. Recommend correlation with urinalysis. Discharge Plan Discharge Clinical Impression: Colitis, Anemia, End-stage renal disease (ESRD) Prescriptions: No Action atorvastatin 40 mg tablet 40 mg PO DAILY Patient Comments: TAKE ONE TABLET BY MOUTH AT BEDTIME sennosides [Suyapa-ulysses] 8.6 mg tablet 8.6 mg PO DAILY PRN Patient Comments: TAKE 1 TABLET (8.6 MG) BY MOUTH 2 TIMES DAILY. ondansetron 8 mg tablet,disintegrating 8 mg PO Q8H PRN Patient Comments: PLACE 1 TABLET (8MG) ON THE TONGUE EVERY 8 HOURS IF NEEDED FOR NAUSEA/VOMITING. lidocaine-prilocaine 2.5-2.5 % cream 1 applic topical DAILY Patient Comments: APPLY SMALL AMOUNT TO ACCESS SITE (AVF) 1 TO 2 HOURS BEFORE DIALYSIS. COVER WITH OCCLUSIVE DRESSING (SARAN WRAP) amlodipine 10 mg tablet 10 mg PO DAILY Patient Comments: TAKE ONE TABLET BY MOUTH ONCE DAILY oxycodone 5 mg tablet 5 mg PO Q6H PRN metoprolol tartrate 25 mg tablet 25 mg PO Q12H Patient Comments: TAKE ONE TABLET BY MOUTH TWICE A DAY. ON DIALYSIS DAYS TAKE THIS AFTERWARDS sevelamer carbonate 800 mg tablet 2,400 mg PO TID Patient Comments: TAKE 4 TABLETS BY MOUTH THREE TIMES DAILY WITH MEALS AND 3 TABLETS TWICE DAILY WITH SNACKS diclofenac sodium 1 % gel 2 g TOPICAL Patient Comments: APPLY 2 G TOPICALLY TO AFFECTED AREA(S) 4 TIMES DAILY. Auryxia 210 mg iron tablet 2 tab PO TID Patient Comments: TAKE 2 TABLETS BY MOUTH THREE TIMES A DAY WITH MEALS AND 1 TABLET TWICE A DAY WITH SNACKS. SWALLOW WHOLE, DO NOT CHEW OR CRUSH MEDICATION RenaPlex-D 800 mcg-12.5 mg -2,000 unit tablet 1 tab PO DAILY Patient Comments: TAKE 1 TABLET BY MOUTH EVERY DAY WITH THE EVENING MEAL fidaxomicin 200 mg tablet 200 mg PO BID 10 Days Qty: 20 0RF Rx Instructions: May need PA. His C Diff is resistant to Flagyl and Vanco. Movantik 12.5 mg tablet 12.5 mg PO QAM Qty: 5 0RF Rx Instructions: must be taken on empty stomach; no food 1 hr after or 2-3 hrs before dose sucralfate [Carafate] 100 mg/mL suspension 1 g PO BID tizanidine 2 mg tablet 2 mg PO QPM Follow Up/Referrals: Rosamaria Garcia PA-C [Primary Care Provider] -
[2023-04-21] MEDS: OXYCODONE 5 MG TABLET 10 MG PO (02:55)
--- NOTE | 2023-04-21 02:56 | CRLHL7_ITS ---
For Patients: As a result of the Century Cures Act, medical imaging exams and procedure reports are released immediately into your electronic medical record. You may view this report before your referring provider. If you have questions, please contact your health care provider. INDICATION: RUQ abdomen pain, diarrhea TECHNIQUE: CT abdomen and pelvis without contrast COMPARISON: CT abdomen pelvis January 21, 2023 FINDINGS: Kidney/ureters: Atrophy of the bilateral kidneys. Scattered too small to characterize hypodensities bilaterally. No hydronephrosis or hydroureter. No renal stones identified. Vascular calcifications. Bladder wall thickening which may relate to incomplete distention or cystitis. Recommend correlation with urinalysis. Liver/gallbladder/bile ducts: The liver is normal in size, shape and attenuation. Status post cholecystectomy. Mild intrahepatic biliary ductal dilatation likely reservoir effect. Spleen/pancreas/adrenal glands: The spleen, adrenal glands and pancreas are within normal limits. GI tract: Pancolonic wall thickening most notably involving the hepatic flexure and proximal transverse colon. Anastomosis in the rectum. No bowel obstruction. Unchanged appendix with intraluminal hyperdensity. Abdominal wall/omentum/peritoneum: No free air or significant free fluid. No mass or inflammation. Lymph nodes: No lymphadenopathy. Vasculature: Advanced aortoiliac atherosclerosis. Pelvis: Unremarkable pelvis. Lower chest: Unremarkable. Bones: Multilevel joint spondylosis and Schmorl`s nodes at multiple levels, unchanged. IMPRESSION: Pancolonic wall thickening most notably involving the hepatic flexure and proximal transverse colon. Finding concerning for nonspecific infectious/inflammatory pancolitis. Cannot exclude C diff. Bladder wall thickening which may relate to incomplete distention or cystitis. Recommend correlation with urinalysis. Please note that all CT scans at this facility use dose modulation, iterative reconstruction, and/or weight-based dosing when appropriate to reduce radiation dose to as low as reasonably achievable. Dictated by Mejia Watts MD @ 04/21/2023 5:20:52 AM (Electronically Signed)
[2023-04-21] MEDS: ONDANSETRON 2 MG/ML inj 4 MG IVP ×2 (02:57→09:06)
[2023-04-21] MEDS: fentaNYL 100 MCG/2 ML inj 50 MCG IVP (02:59)
[2023-04-21 03:02] LABS: Lactate* 0.6 mmol/L (0.5-1.9)
[2023-04-21 03:03] LABS: Basophils Absolute Auto 0.04 K/uL (0.00-0.30); Basophils Percent Auto 0.7 % (0.0-3.0); Eosinophils Absolute Auto 0.08 K/uL (0.00-0.50); Eosinophils Percent Auto 1.5 % (0.0-7.0); Hematocrit 29.4 % (37.0-53.0); Hemoglobin* 9.6 gm/dL (13.5-17.5); Immature Granulocytes Abs Auto 0.04 K/uL (0.00-0.30); Immature Granulocytes Pct Auto 0.7 %; Lymphocytes Absolute Auto 1.14 K/uL (0.90-2.90); Lymphocytes Percent Auto 20.7 % (20-44); Mean Corpuscular HGB Conc 33 gm/dL (32-36); Mean Corpuscular Hemoglobin 32 pg (26-34); Mean Corpuscular Volume 96 fL (80-100); Monocytes Percent Auto 9.6 % (0.0-11.0); Neutrophils Absolute Auto 3.68 K/uL (1.7-7.0); Neutrophils Percent Auto 66.8 % (42.0-72.0); Platelet Count* 208 K/uL (140-440); RDW Coefficient of Variation % 15.6 % (11.5-15.5); Red Blood Count 3.05 m/uL (4.30-5.90); White Blood Count* 5.51 K/uL (4.50-11.00)
[2023-04-21 03:04] LABS: Slide Review Reflex No
[2023-04-21 03:18] LABS: Chloride* 101 mmol/L (96-114); Potassium* 4.9 mmol/L (3.6-5.1); Sodium* 132 mmol/L (135-149)
[2023-04-21 03:20] LABS: Anion Gap 9 mEq/L (7-15); Bilirubin Total* 0.4 mg/dL (0.1-1.5); Carbon Dioxide* 22 mmol/L (20-32); Creatinine* 7.7 mg/dL (0.5-1.5); Estimated Glomerular Filt Rate 8 ml/min
[2023-04-21 03:21] LABS: Alanine Aminotransferase* 16 U/L (4-50); Alkaline Phosphatase* 70 U/L (40-150); Aspartate Amino Transferase* 25 U/L (12-35); Blood Urea Nitrogen* 15 mg/dL (7-30); Calcium* 9.4 mg/dL (8.4-10.6); Glucose* 91 mg/dL (60-115); Lipase* 34 U/L (23-300); Total Protein* 6.6 g/dL (6.0-8.3)
--- NOTE | 2023-04-21 06:55 | ED.NURSE ---
Patient has h/o C Diff resistant to Flagyl and Vanco. Has used fidaxomicin in the past. H/o fecal transplant.
[2023-04-21] MEDS: 5 % DEXTROSE IN LAC RINGER'S 1,000 ML 125 ML IV (08:01)
[2023-04-21] MEDS: OxyCODONE/APAP 5-325 TABLET 2 TAB PO (09:06)
[2023-04-21 09:12] LABS: Glucose* 91 mg/dL (60-115)
[2023-04-21 09:15] LABS: C Reactive Protein* 0.5 mg/dL (0.5-1.0)
[2023-04-21 12:54] LABS: Lactate* 0.8 mmol/L (0.5-1.9)
[2023-04-21 12:57] LABS: Basophils Absolute Auto 0.04 K/uL (0.00-0.30); Basophils Percent Auto 0.6 % (0.0-3.0); Eosinophils Absolute Auto 0.13 K/uL (0.00-0.50); Hematocrit 28.6 % (37.0-53.0); Hemoglobin* 9.4 gm/dL (13.5-17.5); Immature Granulocytes Abs Auto 0.02 K/uL (0.00-0.30); Immature Granulocytes Pct Auto 0.3 %; Lymphocytes Percent Auto 19.1 % (20-44); Mean Corpuscular HGB Conc 33 gm/dL (32-36); Mean Corpuscular Hemoglobin 31 pg (26-34); Mean Corpuscular Volume 96 fL (80-100); Monocytes Percent Auto 7.8 % (0.0-11.0); Neutrophils Absolute Auto 4.56 K/uL (1.7-7.0); Neutrophils Percent Auto 70.2 % (42.0-72.0); Platelet Count* 187 K/uL (140-440); RDW Coefficient of Variation % 15.5 % (11.5-15.5); Red Blood Count 2.99 m/uL (4.30-5.90)
[2023-04-21 13:03] LABS: Slide Review Reflex No
[2023-04-21 13:16] LABS: C Reactive Protein* < 0.5 mg/dL (0.5-1.0)
--- NOTE | 2023-05-20 11:41 | ED.GENADULT ---
HPI - General Adult General Date Seen: 04/21/23 Chief complaint: Abdominal Pain Stated complaint: abdominal pain Time Seen by Provider: 04/21/23 02:27 History of Present Illness HPI narrative: This note is an addendum to my ER note from 04/21 for this patient. I saw this patient on that day and inadvertently omitted my physical exam from my initial note. Please see my ER note from 04/21 for full details of the patient's history and physical and initial workup in the ER. physical exam: Constitutional: Appears well-developed but somewhat chronically ill-appearing. Alert. Conversant he, but uncomfortable. Non toxic. HENT: Head: Atraumatic. Nose: Nose normal. Mouth/Throat: Oral mucosa is clear but mucous membranes are somewhat dry, not desiccated or cracked.. no trismus. Pharynx normal. Tonsils symmetric. No tonsillar enlargement, erythema, or exudate. Eyes: Conjunctivae normal. EOM normal. Pupils equal, round, and reactive to light. No scleral icterus. Neck: Normal range of motion. Neck supple. No tracheal deviation present. Cardiovascular: Normal rate, regular rhythm. No gallop. No friction rub. No murmur heard. Palpable fistula with thrill in the left upper extra Pulmonary/Chest: Effort normal. No stridor. No respiratory distress. No wheezes. No rales. No rhonchi . Abdominal: Soft. Bowel sounds normal. No distension. No mass. diffuse tenderness, more in the right upper quad and epigastric. No rebound. No guarding. Musculoskeletal: RUE: Normal range of motion. No tenderness. No deformity LUE: Normal range of motion. No tenderness. No deformity RLE: Normal range of motion. No edema. No tenderness. No deformity LLE: Normal range of motion. No edema. No tenderness. No deformity Neurological: Alert and oriented to person, place, and time. Normal strength. CN II-VII intact. No sensory deficit. GCS eye subscore is 4. GCS verbal subscore is 5. GCS motor subscore is 6. Normal coordination Skin: Skin is warm and dry. No diaphoresis. No jaundice.. No rash noted. He pale, but No pallor. Normal capillary refill. Psychiatric: Normal mood. Normal affect allowing for pain Related Data Home Medications Medication Instructions Recorded Confirmed amlodipine 10 mg tablet 10 mg PO DAILY 12/26/21 02/11/23 atorvastatin 40 mg tablet 40 mg PO DAILY 12/26/21 02/11/23 diclofenac sodium 1 % topical gel 2 g topical 12/26/21 ferric citrate 210 mg iron tablet 2 tab PO TID 12/26/21 02/11/23 (Auryxia) lidocaine-prilocaine 2.5 %-2.5 % 1 applic topical DAILY 12/26/21 02/11/23 topical cream metoprolol tartrate 25 mg tablet 25 mg PO Q12H 12/26/21 02/11/23 ondansetron 8 mg disintegrating 8 mg PO Q8H PRN 12/26/21 02/11/23 tablet oxycodone 5 mg tablet 5 mg PO Q6H PRN 12/26/21 02/11/23 sennosides 8.6 mg tablet (Suyapa-ulysses) 8.6 mg PO DAILY PRN 12/26/21 02/11/23 sevelamer carbonate 800 mg tablet 2,400 mg PO TID 12/26/21 08/15/22 vit B,C-folic ac 800 mcg-zinc 12.5 1 tab PO DAILY 12/26/21 02/11/23 mg-selen-D3 2,000 unit-vit E tablet (RenaPlex-D) sucralfate 100 mg/mL oral 1 g PO BID 02/11/23 02/11/23 suspension (Carafate) tizanidine 2 mg tablet 2 mg PO QPM 02/11/23 02/11/23 Previous Rx's Medication Instructions Recorded fidaxomicin 200 mg tablet 200 mg PO BID 10 days #20 tabs 10/21/22 naloxegol 12.5 mg tablet (Movantik) 12.5 mg PO QAM #5 tabs 12/02/22 ondansetron 8 mg disintegrating 8 mg PO Q8H PRN nausea and 04/21/23 tablet vomiting #30 tabs Allergies Allergy/AdvReac Type Severity Reaction Status Date / Time lisinopril Allergy Severe angioedema Verified 01/21/23 14:44 Penicillins Allergy Unknown Verified 01/21/23 14:44 hydromorphone [From Dilaudid] AdvReac nausea/vomi Verified 01/21/23 14:44 ting [facility] Medical History Type 2 diabetes mellitus, without long-term current use of insulin ?E11.9 - Type 2 diabetes mellitus without complications (ICD-10) Hypertension ?I10 - Essential (primary) hypertension (ICD-10) Malignant neoplasm of sigmoid colon ?C18.7 - Malignant neoplasm of sigmoid colon (ICD-10) Spondylosis of lumbar region without myelopathy or radiculopathy ?M47.816 - Spondylosis without myelopathy or radiculopathy, lumbar region (ICD-10) Bilateral hip pain ?M25.551 - Pain in right hip (ICD-10) ?M25.552 - Pain in left hip (ICD-10) Spinal stenosis, lumbar region without neurogenic claudication ?M48.061 - Spinal stenosis, lumbar region without neurogenic claudication (ICD-10) Lumbar foraminal stenosis ?M48.061 - Spinal stenosis, lumbar region without neurogenic claudication (ICD-10) Chronic abdominal pain ?R10.9 - Unspecified abdominal pain (ICD-10) ?G89.29 - Other chronic pain (ICD-10) Chronic pain of both shoulders ?M25.511 - Pain in right shoulder (ICD-10) ?M25.512 - Pain in left shoulder (ICD-10) ?G89.29 - Other chronic pain (ICD-10) Peripheral polyneuropathy ?G62.9 - Polyneuropathy, unspecified (ICD-10) Chronic thoracic back pain ?M54.6 - Pain in thoracic spine (ICD-10) ?G89.29 - Other chronic pain (ICD-10) GERD (gastroesophageal reflux disease) ?K21.9 - Gastro-esophageal reflux disease without esophagitis (ICD-10) Chronic constipation ?K59.09 - Other constipation (ICD-10) Hematemesis ?K92.0 - Hematemesis (ICD-10) Anxiety and depression ?F41.9 - Anxiety disorder, unspecified (ICD-10) ?F32.A - Depression, unspecified (ICD-10) ESRD on hemodialysis ?N18.6 - End stage renal disease (ICD-10) ?Z99.2 - Dependence on renal dialysis (ICD-10) Secondary hyperparathyroidism (of renal origin) ?N25.81 - Secondary hyperparathyroidism of renal origin (ICD-10) Surgical History History of colectomy ?Z90.49 - Acquired absence of other specified parts of digestive tract (ICD-10) History of cholecystectomy ?Z90.49 - Acquired absence of other specified parts of digestive tract (ICD-10) Social History Smoking Status: Former smoker Do you use any of these nicotine containing products: None Second hand tobacco smoke exposure: No How often do you have a drink containing alcohol: never How often do you have six or more drinks on one occasion: Never AUDIT-C Alcohol total score: 0 Non-prescribed substance use: marijuana (any form) service: No Course Vital Signs Vital signs: Initial Vital Signs Temperature 98.6 F 04/21/23 02:14 Temperature Source Temporal Artery Scan 04/21/23 02:14 Pulse Rate 86 04/21/23 02:14 Respiratory Rate 16 04/21/23 02:14 Blood Pressure 161/100 H 04/21/23 02:14 Blood Pressure Mean 120 H 04/21/23 02:14 Blood Pressure Position Supine 04/21/23 02:14 Pulse Oximetry 100 04/21/23 02:14 Vital Signs Temperature 98.6 F 04/21/23 02:14 Pulse Rate 86 04/21/23 02:14 Respiratory Rate 16 04/21/23 02:14 Blood Pressure 161/100 H 04/21/23 02:14 Pulse Oximetry 100 04/21/23 02:14 Temperature 98.2 F 04/21/23 12:26 Pulse Rate 78 04/21/23 12:26 Respiratory Rate 14 04/21/23 12:26 Blood Pressure 148/84 H 04/21/23 12:26 Pulse Oximetry 100 04/21/23 12:26 Oxygen Delivery Method Room Air 04/21/23 12:26 Medications Administered Medications: Discontinued Medications Generic Name Dose Route Start Last Admin Trade Name Freq PRN Reason Stop Dose Admin Fentanyl 50 mcg 04/21/23 02:27 04/21/23 02:59 Fentanyl 100 Mcg/2 Ml Inj IVP 04/21/23 02:28 50 mcg ONCE ONE Administration Dextrose/Lactated Ringer's 1,000 mls @ 125 mls/hr 04/21/23 06:16 04/21/23 08:01 5 % Dextrose In Lac Ringer's IV 125 mls/hr .Q8H MAGGI Administration Ondansetron HCl 4 mg 04/21/23 02:27 04/21/23 02:57 Ondansetron 2 Mg/Ml Inj IVP 04/21/23 02:28 4 mg ONCE ONE Administration Ondansetron HCl 4 mg 04/21/23 08:51 04/21/23 09:06 Ondansetron 2 Mg/Ml Inj IVP 4 mg Q4H PRN Administration Nausea Oxycodone HCl 10 mg 04/21/23 02:27 04/21/23 02:55 Oxycodone 5 Mg Tablet PO 04/21/23 02:28 10 mg ONCE ONE Administration Oxycodone/Acetaminophen 2 tab 04/21/23 08:51 04/21/23 09:06 Oxycodone/Apap 5-325 Tablet PO 2 tab Q4H PRN Administration Medical Decision Making Lab Data Labs: Lab Results 04/21/23 04/21/23 04/21/23 Range/Units 02:50 08:35 12:47 WBC 5.51 6.50 (4.50-11.00) K/uL RBC 3.05 L 2.99 L (4.30-5.90) m/uL Hgb 9.6 L 9.4 L (13.5-17.5) gm/dL Hct 29.4 L 28.6 L (37.0-53.0) % MCV 96 96 (80-100) fL MCH 32 31 (26-34) pg MCHC 33 33 (32-36) gm/dL RDW Coeff of Mike 15.6 H 15.5 (11.5-15.5) % Plt Count 208 187 (140-440) K/uL Neut % (Auto) 66.8 70.2 (42.0-72.0) % Lymph % (Auto) 20.7 19.1 L (20-44) % [place] % (Auto) 9.6 7.8 (0.0-11.0) % Eos % (Auto) 1.5 2.0 (0.0-7.0) % Baso % (Auto) 0.7 0.6 (0.0-3.0) % Neut # (Auto) 3.68 4.56 (1.7-7.0) K/uL Lymph # (Auto) 1.14 1.20 (0.90-2.90) K/uL [place] # (Auto) 0.50 0.50 (0.00-0.90) K/UL Eos # (Auto) 0.08 0.13 (0.00-0.50) K/uL Baso # (Auto) 0.04 0.04 (0.00-0.30) K/uL Abs Immat Gran (auto) 0.04 0.02 (0.00-0.30) K/uL Imm/Tot Granulo (auto) 0.7 0.3 % Sodium 132 L (135-149) mmol/L Potassium 4.9 (3.6-5.1) mmol/L Chloride 101 (96-114) mmol/L Carbon Dioxide 22 (20-32) mmol/L Anion Gap 9 (7-15) mEq/L BUN 15 (7-30) mg/dL Creatinine 7.7 H (0.5-1.5) mg/dL Estimated GFR 8 ml/min Glucose 91 91 (60-115) mg/dL Lactate 0.6 0.8 (0.5-1.9) mmol/L Calcium 9.4 (8.4-10.6) mg/dL Total Bilirubin 0.4 (0.1-1.5) mg/dL AST 25 (12-35) U/L ALT 16 (4-50) U/L Alkaline Phosphatase 70 (40-150) U/L C-Reactive Protein 0.5 < 0.5 L (0.5-1.0) mg/dL Total Protein 6.6 (6.0-8.3) g/dL Albumin 4.0 (3.3-5.0) g/dL Lipase 34 (23-300) U/L Discharge Plan Discharge Clinical Impression: Colitis, Anemia, End-stage renal disease (ESRD) Patient Disposition: Home, Self-Care Condition: Stable Additional Instructions: We do need to check your stool for C diff. you will be sent home with a stool collecting kit, bring back as soon as you are able to give a sample. You do need to follow-up with [facility] as soon as you can. I would call your GI physician this week and let them know about your ER visit. You can ask them if your next scheduled appointment needs to be moved so that you can be seen sooner. Return to the ER if you have worsening pain, vomiting, fever. Zofran has been refilled. Prescriptions: New ondansetron 8 mg tablet,disintegrating 8 mg PO Q8H PRN (Reason: nausea and vomiting) Qty: 30 0RF No Action atorvastatin 40 mg tablet 40 mg PO DAILY Patient Comments: TAKE ONE TABLET BY MOUTH AT BEDTIME sennosides [Suyapa-ulysses] 8.6 mg tablet 8.6 mg PO DAILY PRN Patient Comments: TAKE 1 TABLET (8.6 MG) BY MOUTH 2 TIMES DAILY. ondansetron 8 mg tablet,disintegrating 8 mg PO Q8H PRN Patient Comments: PLACE 1 TABLET (8MG) ON THE TONGUE EVERY 8 HOURS IF NEEDED FOR NAUSEA/VOMITING. lidocaine-prilocaine 2.5-2.5 % cream 1 applic topical DAILY Patient Comments: APPLY SMALL AMOUNT TO ACCESS SITE (AVF) 1 TO 2 HOURS BEFORE DIALYSIS. COVER WITH OCCLUSIVE DRESSING (SARAN WRAP) amlodipine 10 mg tablet 10 mg PO DAILY Patient Comments: TAKE ONE TABLET BY MOUTH ONCE DAILY oxycodone 5 mg tablet 5 mg PO Q6H PRN metoprolol tartrate 25 mg tablet 25 mg PO Q12H Patient Comments: TAKE ONE TABLET BY MOUTH TWICE A DAY. ON DIALYSIS DAYS TAKE THIS AFTERWARDS sevelamer carbonate 800 mg tablet 2,400 mg PO TID Patient Comments: TAKE 4 TABLETS BY MOUTH THREE TIMES DAILY WITH MEALS AND 3 TABLETS TWICE DAILY WITH SNACKS diclofenac sodium 1 % gel 2 g TOPICAL Patient Comments: APPLY 2 G TOPICALLY TO AFFECTED AREA(S) 4 TIMES DAILY. Auryxia 210 mg iron tablet 2 tab PO TID Patient Comments: TAKE 2 TABLETS BY MOUTH THREE TIMES A DAY WITH MEALS AND 1 TABLET TWICE A DAY WITH SNACKS. SWALLOW WHOLE, DO NOT CHEW OR CRUSH MEDICATION RenaPlex-D 800 mcg-12.5 mg -2,000 unit tablet 1 tab PO DAILY Patient Comments: TAKE 1 TABLET BY MOUTH EVERY DAY WITH THE EVENING MEAL fidaxomicin 200 mg tablet 200 mg PO BID 10 Days Qty: 20 0RF Rx Instructions: May need PA. His C Diff is resistant to Flagyl and Vanco. Movantik 12.5 mg tablet 12.5 mg PO QAM Qty: 5 0RF Rx Instructions: must be taken on empty stomach; no food 1 hr after or 2-3 hrs before dose sucralfate [Carafate] 100 mg/mL suspension 1 g PO BID tizanidine 2 mg tablet 2 mg PO QPM Follow Up/Referrals: Rosamaria Garcia PA-C [Primary Care Provider] - Stand Alone Forms: [employer] [facility] Info Instructions
== END 2023-04-21 14:12 | disposition home or self-care (01) ==
PROVIDERS: Emergency Medicine; Emergency Provider Family Medicine; PCP Physician Assistant
DX: K52.9 Noninfective gastroenteritis and colitis, unspecified (principal); N18.6 End stage renal disease; D64.9 Anemia, unspecified
CPT/HCPCS: 36415; 74176; 80053; 82947; 83605; 83690; 83993; 85025; 86140; 87045; 87046; 87427; 87493; 96374; 96375; 96376; 99284; A9270; J2405; J3010

== ENCOUNTER 2024-06-08 16:09 | Outpatient (CLI) | payer MEDICARE, SELFPAY | END 2024-06-08 16:10 | disposition home or self-care (01) | LOC: AMB 06-13 15:07 | PROVIDERS: PCP Physician Assistant; Visit Provider Family Medicine | DX: T82.838A Hemorrhage due to vascular prosthetic devices, implants and grafts, initial encounter (principal) | CPT/HCPCS: A0425; A0427 ==

== ENCOUNTER 2024-06-08 16:33 | Emergency (ER) | payer MEDICARE, SELFPAY ==
--- OUTSIDE RECORDS SUMMARY | 2024-06-08 16:35 | XMS_ITS | Clinical Summary ---
Author Organization [facility] Address [address] [place] [address] Care Team Providers Care Aircraft Line Assembler Name Role Phone Elsewhere, Pcp Primary Care Provider Unavailabl e Source Comments Patient records contain information from all sites at [facility]. For routine questions regarding patient records, call [phone] during business hours, M-F 8:00 AM - 5:00 PM Central Time. Record requests for emergency care only can be directed to [phone] at any time.[facility] Allergies Active Allergy Reactions Criticality Noted Date Comments Adhesive Rash Low 01/25/2012 Blood-Group Specific Substance Other (see comments) 03/13/2011 Pt has an anti-big E. Blood product orders may be delayed. Please draw one red top and two purple top tubes for all Type and Screen/Red Blood Cell product orders. Hydromorphone (Bulk) Nausea And Vomiting Low 2016 Hydromorphone-Guaifene sin Nausea And Vomiting,GI intolerance Low 02/07/2012 Lisinopril Anaphylaxis,Shortnes s of breath (Reselect Reaction),Angioedema (Reselect Reaction) High 11/27/2013 Had laryngeal edema, ? Angioedema vs epiglottitis Penicillin G Other (see comments) 01/25/2012 Penicillins Other (see comments) 04/18/2006 As a child Medications amLODIPine (for_NORVASC) 10 mg tablet Take 1 tablet by mouth daily. 5 Active aspirin 81 mg chewable tablet Chew 1 tablet daily. 5 Active B complex-vitamin C-FA (for_NEPHROCAPS) 1 mg capsule Take 1 capsule by mouth daily. Active metoprolol tartrate (for_LOPRESSOR) 25 mg tablet Take 25 mg by mouth 2 (two) times a day. 7 Active ondansetron ODT (for_ZOFRAN-ODT) [address] 4 mg under the tongue every 8 (eight) hours as needed for nausea. 7 Active LORazepam (ATIVAN) 0.5 mg tablet Take 0.5 mg by mouth 2 (two) times a day as needed for anxiety. Active ferric citrate (AURYXIA) 210 mg iron tablet tablet Take 2-3 tablets by mouth 3 (three) times a day with meals. Take 3 tablets with meals and 2 tablets with snacks. 2 Active hydrOXYzine (VISTARIL) 25 mg capsule Take 25 mg by mouth 3 (three) times a day as needed for anxiety. 2 Active atorvastatin (LIPITOR) 40 mg tablet Take 40 mg by mouth daily. 2 Active oxyCODONE (ROXICODONE) 5 mg immediate release tabletIndications:C hronic Pain/Nonacute Pain Take 1 tablet (5 mg total) by mouth every 4 (four) hours as needed for moderate pain or score 4-6 of 10 or severe pain or score 7-10 of 10 18 tablet 09/25/2022 12:18 PM CDT 3 Active Active Problems Problem Noted Date Diagnosed Date Enterocolitis Due To Clostridium Difficile Recur rent 09/24/2022 Colitis 09/23/2022 Abscess Perianal 08/05/2017 Pancreatitis Chronic 08/04/2017 Anemia 08/04/2017 Failure Renal End Stage 08/04/2017 Enterocolitis Due To Clostri dium Difficile Not Specified As Recurrent 06/25/2017 Nausea And Vomiting 06/22/2017 Lumbosacral spondylosis without myelopathy 06/16 Other Chest Pain 05/04/2017 Diabetes Mellitus Type 2 05/04/2017 Malignant Neoplasm Of Sigmoid Colon 10/22/2016 Abnormal Levels Of Other Serum Enzymes 7 Hemorrhoidal Tag 10/20/2016 Hematochezia 10/20/2016 Noncompliance With Medication Regimen 06/19/2015 Overview (08/04/2017): Overview: no further narcotics. Courtney Guardado MD 2013 with Kathryn: broken agreement Presents to various ERs with complaint of abdominal pain/back pain/leg pain: I would recommend no narcotics. Other Chronic Pain 11/28/2013 Abdominal Pain 08/09/2013 Overview (08/04/2017): Overview: recurrent. 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 Brown in [place]. Hypertensive Chronic Kidney Disease With Stage 5 Chronic Kidney Disease Or End Stage Renal Disease 07/08/2009 Cannabis Mild Use Disorder (Abuse) Uncomplicated 07/08/2009 Infection Penicillin Resistant 03/05/2007 Overview (08/04/2017): Overview: fall 2006, sensitive to septra and cipro. 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 Gender Identity Not on file Sexual Orientation Not on file Last Filed Vital Signs Vital Sign Reading Time Taken Comments Blood Pressure 144/73 09/25/2022 11:30 AM CDT Pulse 74 09/25/2022 11:30 AM CDT Temperature 36.7 C (98.1 F) 09/25/2022 11:30 AM CDT Respiratory Rate 15 09/25/2022 11:3 0 AM CDT Oxygen Saturation 100% 09/25/2022 11: 30 AM CDT Inhaled Oxygen Concentration - - Weight 65.2 kg (143 lb 11.8 oz) 09/24/2022 5:15 PM CDT Height 165.5 cm (5' 5.16) 09/23/2022 1:13 PM CD T Body Mass Index 23.8 09/23/2022 1:13 PM CDT Plan of Treatment Health Maintenance Due Date Last Done Comments CT Colonography 1971 Cologuard 1971 Depression Monitoring (PHQ-9) 1971 Diabetic Office Visit with Foot Exam 1971 Dilated Eye Exam 1971 HIV Screening 1971 Hepatitis C Screening 1971 Tobacco Cessation counseling 1971 Urine Albumin 1971 Hepatitis A Vaccines (1 of 2 - Risk 2-dose series) 1990 Zoster Vaccines (1 of 2) 2021 DTaP,Tdap,and Td Vaccines (2 - Td or Tdap) 10/27/2021 10/28/2011 Hemoglobin A1C 06/05/2023 12/03/2022, 08/30, 07/11/2020, Additional history exists Office Visit for Blood Pressure Check / Re-check 09/24/2023 09/23/2022 COVID-19 Vaccine (3 - season) 2024 06/23/2020, 05/30/2020 Influenza Vaccine (#1) 2024 , 02/05/2022, 03/17/2020, Additional history exists Creatinine Level (Kidney Function Test) 03/16/2024 03/16/2023, 03/16/2023, 01/04/2023, Additional history exists Depression Monitoring (PHQ-9 for quality tracking) 05/02/2024 Pneumococcal vaccine (50+ years) (3 of 3 - PCV20 or PCV21) 06/13/2024 06/13/2019, 05/26/2018, 03/17/2011 Lipid (Cholesterol) Screening 10/02/2027 10/01/2022, 09/17/2021, 08/22/2019 Colonoscopy 12/16/2027 12/15/2022 Colorectal Cancer Surveillance 12/16/2027 Hepatitis B Vaccines Completed 09/17/2021, 04/03/2021, 07/11/2020 IPV Vaccines Aged Out No longer eligi ble based on patient's age to complete this topic Procedures Procedure Name Priority Date/Time Associated Diagnosis Comments RENAL FUNCTION PANEL, S Routine 09/24/2022 12:21 AM CDT HEMOGLOBIN A1C, B Routine 08/05/2017 6:1 8 AM CDT from Last 3 Months or Most Recently Relevant to Health Maintenance Results * (ABNORMAL) Renal Function Panel (09/24/2022 12:21 AM CDT) Potassium, S 4.7 3.6 - 5.2 mmol/L 09/24/2022 1:29 AM CDT DTL Sodium, S 133(L) 135 - 145 mmol/L 09/24/2022 1:29 AM CDT DTL Chloride, S 102 98 - 107 mmol/L 09/24/2022 1:29 AM CDT DTL Bicarbonate, S 20(L) 22 - 29 mmol/L 09/24/2022 1:29 AM CDT DTL Anion Gap 11 7 - 15 09/24/2022 1:29 AM CDT DTL BUN (Blood Urea Nitrogen), S 8 8 - 24 mg/dL 09/24/2022 1:29 AM CDT DTL Creatinine 6.54(H) 0.74 - 1.35 mg/dL 09/24/2022 1:29 AM CDT DTL Estimated GFR (eGFR) <15(L) >=60 mL/min/BSA 09/24/2022 1:29 AM CDT DTL Comment: Estimated GFR calculated using the 2020 CKD_EPI creatinine equation. Calcium, Total, S 9.2 8.6 - 10.0 mg/dL 09/24/2022 1:29 AM CDT DTL Glucose, S 57(L) 70 - 140 mg/dL 09/24/2022 1:29 AM CDT DTL Albumin, S 4.1 3.5 - 5.0 g/dL 09/24/2022 1:29 AM CDT DTL Phosphorus (Inorganic), S 4.5 2.5 - 4.5 mg/dL 09/24/2022 1:29 AM CDT DTL Blood (Blood, Venous) 09/24/2022 12:21 AM CDT 09/24/2022 1:08 AM CDT Bhavna Ceja M.D. LAB BLOOD ADD-ON Final Result Performing Organization Address City/[facility]/ZIP Co de Phone Number [facility] [address] [place] [address], [facility] DTL [facility] [address] [place] [address] * Hemoglobin A1c (08/05/2017 6:18 AM CDT) Hemoglobin A1c, B 5.2 4.2 - 5.6 % 08/08/2017 1:52 AM CDT [facility] Blood (Blood, Venous) 08/05/2017 6:18 AM CDT 08/07/2017 11:47 PM CDT us Cholo Hooks LAB BLOOD ADD-ON Final Re sult Performing Organization Address City/[facility] Co de Phone Number [facility] [address] [place], [place] [address] from Last 3 Months or Most Recently Relevant to Health Maintenance Insurance MEDICARE MEDICA Advance Directives For more information, please contact: [phone] * Full Code (Latest Code Status on File) Date Activated Date Inactivated Comments 09/23/2022 1:29 PM 09/25/2022 2:27 PM Question Answer Comments Full Code: Discussed * Full Code Date Activated Date Inactivated Comments 08/19/2017 3:47 AM 08/20/2017 3:26 PM Question Answer Comments Full Code: Discussed * Full Code Date Activated Date Inactivated Comments 08/04/2017 12:18 AM 08/10/2017 6:47 PM Question Answer Comments Full Code: Discussed Care Teams Aircraft Line Assembler Relationship Specialty Start Date End Date Elsewhere, Pcp PCP - General 07/29/20
--- OUTSIDE RECORDS SUMMARY | 2024-06-08 16:35 | XMS_ITS | Encounter Summary ---
Author Organization [facility] Address [address] [facility] [place] [address] Care Team Providers Care Layboy Operator Name Role Phone Courtney Guardado MD Primary Care Provider [phone] Gavin Lombardo Primary Care Provi moses Kedar Dang MD Unavailable [phone] Rosamaria Garcia PA-C Primary Care Provider [phone] Encounter Details Date Type Department Care Team (Late st Contact Info) Description 05/24/2018 External Order Results [facility] [address] [place] [address] Outside, Provider Social History Tobacco Use Types Packs/Day Years Used Date Smoking Tobacco: Every Day Cigarettes 0.5 27 Smokeless Tobacco: Never Alcohol Use Standard Drinks/Week Comments Yes 0 (1 standard drink = 0.6 oz pur e alcohol) occ. 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 Gender Identity Not on file Sexual Orientation Not on file documented as of this encounter Plan of Treatment Upcoming Encounters Date Type Department Care Team (Late st Contact Info) Description 06/19/2024 8:00 AM PRACTICAL NURSING TEACHER Hospital Encounter [facility] [address] [place] [id number] Hugo Sainz MD [facility] [address] [facility] [address] [facility] [address] [place] [address] documented as of this encounter Visit Diagnoses Not on filedocumented in this encounter Care Teams Layboy Operator Relationship Specialty Start Date End Date Courtney Guardado MD PCP - General 03/09/12 07/30/20 Gavin Lombardo PA PCP - General Family Practice 07/31/20 12/14/23 Rosamaria Garcia PA-C [address] [place] [address] PCP - General 12/15/23 [place] [address] [place] [address] Assigned Gastroenterology Provider 01/29/23 documented as of this encounter
--- OUTSIDE RECORDS SUMMARY | 2024-06-08 16:35 | XMS_ITS | Encounter Summary ---
Author Organization [facility] Address [address] [place] [address] Care Team Providers Care Cardiovascular Invasive Specialist Name Role Phone Gavin Lombardo Primary Care Provi moses Unavailable Kedar Tello MD Unavailable [phone] Rosamaria Garcia PA-C Primary Care Provider [phone] Encounter Details Date Type Department Care Team (Late st Contact Info) Description 08/24/2021 External Order Results [facility] [address] [place] [address] Outside, Provider Social History Tobacco Use Types Packs/Day Years Used Date Smoking Tobacco: Every Day Cigarettes 0.5 27 Smokeless Tobacco: Never Alcohol Use Standard Drinks/Week Comments Yes 0 (1 standard drink = 0.6 oz pur e alcohol) occ. 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 No / Unsure 08/27/2021 8:00 AM CDT documented as of this encounter Plan of Treatment Upcoming Encounters Date Type Department Care Team (Late st Contact Info) Description 06/19/2024 8:00 AM SADDLE TREE STITCHER Hospital Encounter [facility] [address] [place] [address] Hugo Sainz MD [facility] [address] [place], [place] [id number] documented as of this encounter Procedures Procedure Name Priority Date/Time Associated Diagnosis Comments COVID-19 VIRUS (CORONAVIRUS) BY PCR (EXTERNAL RESULT) Routine 08/24/2021 12:00 AM CDT documented in this encounter Results * COVID-19 Virus (Coronavirus) by PCR (External Result) (08/24/2021 12:00 AM CDT) COVID-19 Virus by PCR (External Result) Negative NON-INTERFACE D (ONBASE SCANS) 08/24/2021 Narrative MATILDA PFT - 09/08/2021 9:43 AM CDT Verified by Livia De Souza on 09/08/2021. us Provider Outside LABORATORY Edited Result - Final MATLIDA PFT NON-INTERFACED (ONBASE SCANS) documented in this encounter Visit Diagnoses Not on filedocumented in this encounter Care Teams Cardiovascular Invasive Specialist Relationship Specialty Start Date End Date Gavin Lombardo PA PCP - General Family Practice 07/31/20 12/14/23 Rosamaria Garcia PA-C [address] [place] [address] PCP - General 12/15/23 [place] [address] [place] [address] Assigned Gastroenterology Provider 01/29/23 documented as of this encounter
--- OUTSIDE RECORDS SUMMARY | 2024-06-08 16:35 | XMS_ITS ---
Author Organization [facility] Address [address] [place] [address] Care Team Providers Care Line Clearance Foreman Name Role Phone Elsewhere, Pcp Primary Care Provider Unavailabl e Procedures Procedure Name Priority Date/Time Associated Diagnosis Comments RENAL FUNCTION PANEL, S Routine 09/24/2022 12:21 AM CDT HEMOGLOBIN A1C, B Routine 08/05/2017 6:1 8 AM CDT from Last 3 Months or Most Recently Relevant to Health Maintenance Allergies Active Allergy Reactions Criticality Noted Date [...] Overview: no further narcotics. Courtney Guardado MD 2012 with Kathryn: broken agreement Presents to various ERs with complaint of abdominal pain/back pain/leg pain: I would recommend no narcotics. Other Chronic Pain 11/28/2013 Abdominal Pain 08/09/2013 Overview (08/04/2017): Overview: recurrent. 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 Brown in [place]. 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 LAB BLOOD ADD-ON Final Result [facility] [address] [place] [address], [facility] DTL [facility] [address] [place] [address] * Hemoglobin A1c (08/05/2017 6:18 AM CDT) Hemoglobin A1c, B 5.2 4.2 - 5.6 % 08/08/2017 1:52 AM CDT [facility] Blood (Blood, Venous) 08/05/2017 6:18 AM CDT 08/07/2017 11:47 PM CDT us Cholo Hooks LAB BLOOD ADD-ON Final Re sult [facility] [address] [place] [address], [facility] from Last 3 Months or Most Recently Relevant to Health Maintenance
--- OUTSIDE RECORDS SUMMARY | 2024-06-08 16:35 | XMS_ITS | Continuity of Care Document ---
Author Organization [facility] Address [address] [place] [address] Phone Care Team Providers Care Casing Tier Name Role Phone [place] DNP Unavailable [...] Providers Copied on Encounter OFFICE/OUTPA TIENT VISIT, [facility], [address] [place], [place], [id number] , [place] tel:[phone] [facility] [place] mid back pain (chief complaint) Type 2 diabetes mellitus with diabetic polyneuropathyChr onic pain syndromePain in right shoulderOther intervertebral disc degeneration, thoracic regionRadiculopat hy, lumbar regionMyalgia, other siteLong term (current) use of opiate analgesic 4 Vivian Hernandez. [address], [address], [id number], [place]. tel:[phone] Referring Provider: Rosamaria Garcia, [address], [address]. tel:[phone] OFFICE/OUTPA TIENT VISIT, [facility], [address] [place], [place], [id number] , [place] tel:[phone] [facility] Mid back pain (chief complaint) Type 2 diabetes mellitus with diabetic polyneuropathyChr onic pain syndromePain in right shoulderOther intervertebral disc degeneration, thoracic regionRadiculopat hy, lumbar regionMyalgia, other siteLong term (current) use of opiate analgesic 4 Vivian Hernandez. [address] [facility] [address], [facility] [address], [place], [id number], [place]. tel:[phone] Referring Provider: Rosamaria Garcia [address], [address]. tel:[phone] OFFICE/OUTPA TIENT VISIT, [facility], [address] [place], [place], [id number] , [place] tel:[phone] [facility] mid back pain (chief complaint) Chronic pain syndromeLong term (current) use of opiate analgesicPain in right shoulderMyalgia, other siteOther intervertebral disc degeneration, thoracic regionRadiculopat hy, lumbar regionType 2 diabetes mellitus with diabetic polyneuropathy 3 Vivian Hernandez. [address] [facility] [address], [address], [id number], [place]. tel:[phone] Referring Provider: Rosamaria Garcia [address], [address]. tel:[phone] Family History Family Member Type Diagnosis Age At Onset No Information Payers Payer name Insurance type Covered libertarian ID Authoriza tion(s) Medicare MB [id number] [employer] [place] [facility] [id number] Social History Type Description Quantity Date Captured [...] due Goal FIT-DNA. Due on due Goal TAPER MACHINE Scanned. Due on due Goal Lipid panel. Due on due Goal Review Allergy List. Due on due Goal CT-Colonography. Due on due Goal Medication Reconciliation. D ue on due Goal Creatinine. Due on due Goal ALT (SGPT). Due on due Goal CO CHAIRMAN Paperwork. Due on due Goal OARS. Due on due Goal Order Annual PT. Due on due Goal ALT (SGPT). Due on due Goal OARS. Due on due Goal Review Allergy List. Due on due Goal TAPER MACHINE Scanned. Due on due Goal Height. Due [...] Order Annual PT. Due on due Goal CO CHAIRMAN Paperwork. Due on due Goal AST (SGOT). Due on due Goal TAPER MACHINE Scanned. Due on due Goal OARS. Due on due Goal Order Annual PT. Due on due Goal UDT. Due on due Goal Creatinine. Due on due Goal AST (SGOT). Due on due Goal CO CHAIRMAN Paperwork. Due on due Goal ALT (SGPT). Due on due Goal Hepatitis C screening. Due o n due Goal Weight. Due on d ue Goal PHQ-9. Due on du e Goal [...] d ue Goal FIT. Due on due History Of Present Illness [...] pain. Has not received a call from [employer] regarding a previous order of a TENS [...] pain meds/drugs, rest and changing positions. Comments: This i s my first evaluation of the patient. Outside records from [facility] are available for review.Vik (Jcarlos) is a 53 y/o male here for initial consult for mid to low back pain with radiation down his R leg as well as R shoulder pain, referred by CAMILLE Clarke, through [facility]. Mid back pain is most bothersome. [...] and has put it off.He has tried direct care worker and PT, without lasting relief. Has tried an unknown type of low back injection, which did not provide relief. Intends to start acupuncture. Previously followed with [facility]. He had previously tried gabapentin and lyrica, which caused him to feel off. Hydrocodone caused nausea.The patient is currently managed on oxycodone 10mg TID and tizanidine 2mg HS as needed. Cannabis is helpful for his anxiety, but cost-prohibitive. Tizanidine provides some relief for his low back and helps with sleep. He is interested in all treatment options through [facility]. No other concerns today.Treaments Tried: Oxycodone PT- not helpfulGabapentin- doesn't like the way he feelsTizanidine- run out takes at bedtimePregabalin- Increased BPOxycodone- Three times a dayCannabis- helpful, but can't afford itChiropractor mid back pain Severity level i s 8. Duration: chronic. It occurs persistently. Location of pain is middle back and legs. The client describes the pain as sharp and shooting. Symptoms are relieved by heat, lying down, pain meds/drugs and rest. Functional Status Date Functional Assessmen t No [...] low back pain.Forwarded Hx: He has tried direct care worker and PT, without lasting relief. Previously followed with [facility] assessment Myalgia, other site impression Mid back pain feels muscular, tense, and tight. 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 Patient Care Teams Name Effective Dates (start - stop) Status Members No Information
--- OUTSIDE RECORDS SUMMARY | 2024-06-08 16:35 | XMS_ITS | Encounter Summary ---
Author Organization [facility] Address [address] [facility] [place] [address] Care Team Providers Care Chemical Handler Name Role Phone Kedar Tello MD Unavailable [phone] Rosamaria Garcia PA-C Primary Care Provider [phone] Reason for Visit * Auth/Cert (Routine) Specialty Diagnoses / Procedures Referred By Contaly t Referred To Contact Radiology. [facility] [address] [place] [address] Phone: tel: fax: Referral ID Status Reason Start Date Expiration Date Visits Re quested Visits Authorized [id number] 1 1 Encounter Details Date Type Department Care Team (Late st Contact Info) Description 04/24/2024 8:00 AM RN PALLIATIVE CARE Hospital Encounter [facility] [address] [place] [phone] Gio Dubon MD [facility] [address] [place] [address] Social History Tobacco Use Types Packs/Day Years Used Date Smoking Tobacco: Former Cigarettes 0.5 27 S tarted: 06/2022 Smokeless Tobacco: Never Alcohol Use Standard Drinks/Week Comments Yes 0 (1 standard drink = 0.6 oz pur e alcohol) occ. PHQ-2 Answer Date Recorded PHQ-2 Score 0 01/18/2023 Adolescent Education Answer Date Record ed Getting School Help Needed Not on file 01/21 Sex and Gender Information Value Date Recorded Sex Assigned at Not on file Legal Sex Male 5:19 AM RN PALLIATIVE CARE Gender Identity Not on file Sexual Orientation Not on file documented as of this encounter Plan of Treatment Upcoming Encounters Date Type Department Care Team (Late st Contact Info) Description 06/19/2024 8:00 AM RN PALLIATIVE CARE Hospital Encounter [facility] [address] [place] [address] Hugo Sainz MD [facility] [address] [place] [address] documented as of this encounter Visit Diagnoses Not on filedocumented in this encounter Care Teams Chemical Handler Relationship Specialty Start Date End Date Rosamaria Garcia PA-C [address] [place] [address] PCP - General 12/15/23 [place] [id number] [place] [address] Assigned Gastroenterology Provider 01/29/23 documented as of this encounter
--- OUTSIDE RECORDS SUMMARY | 2024-06-08 16:35 | XMS_ITS | Continuity of Care Document ---
Author Organization [facility] Address [address] [address] [place] [address] Phone Care Team Providers Care Unit Support Representative Name Role Phone Emma KENYON, Nayuredin Unavailable Unavailab le Allergies, Adverse Reactions, Alerts Substance Reaction Status Criticality HYDROMORPHONE HCL Active No Informa tion lisinopril Active No Information Penicillins Active No Information Medications Medication Instructions Dosage Effective Dates (start - stop) Status Comments Miralax 17 gram/dose oral powder take by oral route as directed per COL prep instructions received from [facility] - Active Procedure isaiah e: *12/20/23, please dispense 1-8.3ml bottle Golytely 236 gram-22.74 gram-6.74 gram-5.86 gram oral solution Take by oral route as directed in colon prep instructions received from [facility] - Active Please keep o n file for upcoming procedure *12/20/23. Okay to dispense generic alternative such as Trilyte, Gavilyte, Peg 3350 or Colyte Golytely 236 gram-22.74 gram-6.74 gram-5.86 gram oral solution Take by oral route as directed in colon prep instructions - Active Gavilyte and NuLYTELY are ok to be substituted also. Procedure is 05/17/22 Pt requires double prep. oxycodone 5 mg tablet take 1 tablet by ORAL route every day as needed for pain 5 MG - Active aspirin 81 mg tablet,delayed release take 1 tablet by oral route every day 81 MG - Active Suyapa-ulysses 8.6 mg tablet take 1 tablet by oral route 2 times every day as needed for constipation 1 tablet - Active lorazepam 0.5 mg tablet take 1 tablet by oral route every day as needed 0.5 MG - Active Herbal Medications/Suppleme nts unknown take 1 renal Nela by oral route every day of dialysis - Active amlodipine 5 mg tablet take 1 tablet by oral route every day 5 MG - Active Zofran ODT 4 mg disintegrating tablet take 1 tablet by oral route every day as needed 4 MG - Active Vitamin D3 1,000 unit capsule take 1 tablet by oral route every day 1 tablet - Active Procedures Procedure Date Offic/outpt E&m Estab Mod-hi 2 24 Colonoscopy Flex; W/remov Les- 23 Offic/outpt E&m Estab Mod-hi 2 23 Offic/outpt E&m Estab Mod-hi 2 22 Subsqt Hosp-da E&m Minr Compl 2 Init Hosp-da E&m Mod Severity 2 Telephone E&M II 11-20 Min ANSELMO Subsqt Hosp-da E&m Minr Compl 0 Subsqt Hosp-da E&m Stable 15 M 20 Init Hosp-da E&m Mod Severity 0 Ugi Endo; Dx W/wo Collec Specm 18 Init Inpt Cons New/est Mod-hi 8 Subsqt Hosp-da E&m Minr Compl 7 Init Hosp-da E&m Mod Severity 7 Colonoscopy Flex; W/remov Les- 17 Init Hosp-da E&m Mod Severity 7 Colonoscopy Flex; W/bx 1/mx Offic/outpt E&m Estab Low-mod 6 Offic/outpt E&m Estab Mod-hi 2 16 Offic/outpt E&m Estab Minor Subsqt Hosp-da E&m Minr Compl 4 Colonoscopy Flex; W/bx 1/mx Ugi Endo; W/bx 1/mx Init Hosp-da E&m Mod Severity 4 Advance Directives Directive Yes / No Effective Date File Name No Information Encounters Encounter Description Practice Location Reason(s) For Visit Diagnoses Date Provider Providers Copied on Encounter [facility], [address] [address], [place], [address], [place] tel:[phone] [facility] No Information 4 Emma Cohen. [address] [place] [address], [address], [id number], [place]. tel:[phone] [facility], [address] [address], [place], [address], [place] tel:[phone] [facility] Chronic kidney disease, unspecified CKD stage 4 Ernesto Roweahim. [address] [facility], [address], [id number], [place]. tel:[phone] [facility], [address] [address], [place], [address], [place] tel:[phone] [facility] No Information 4 Ernesto Roweahim. [address] [facility], [address], [id number], [place]. tel:[phone] Offic/outpt E&m Estab Mod-hi 2 [facility], [address] [address], [place], [address], [place] tel:[phone] [facility] GI Symptoms or Concerns (chief complaint) Recurrent Clostridium difficile diarrheaColon polypHistory of colon cancer 4 Brittani Foss. [address] [facility], [address], [id number], [place]. tel:[phone] Referring Provider: Referral Self, USE FOR SELF REFERRALS. [facility], [address] [address], [place], [id number], [place] tel:[phone] [facility] Generalized abdominal pain 3 Leonides Montalvo. [address] [facility], [facility] [address], [place], [place], [address], [place]. tel:[phone] [facility], [address] [address], [place], [id number], [place] tel:[phone] [facility] No Information 3 Gonzalo Gibson. [address] [facility], [facility] [address], [place], [place], [address], [place]. tel:[phone] Referring Provider: Arthur Sánchez MD, [address] [facility] [address], [place], [address] . tel:[phone] Offic/outpt E&m Estab Mod-id 2 [facility], [address] [address], [place], [id number], [place] tel:[phone] [facility] GI Symptoms or Concerns (chief complaint) Recurrent Clostridium difficile diarrhea 3 Leonides Montalvo. [address] [facility], [address], [id number], [place]. tel:[phone] Referring Provider: Referral Self, USE FOR SELF REFERRALS. [facility], [address] [address], [place], [id number], [place] tel:[phone] [facility] Recurrent Clostridium difficile diarrhea 3 Theodore Baeza. [address] [facility], [facility] [address], [place], [place], [address], [place]. tel:[phone] [facility], [address] [address], [place], [id number], [place] tel:[phone] [facility] No Information 2 Shaun Castellanos. [address] [place] [address], [facility] [address], [place], [place], [address], [place]. tel:[phone] Offic/outpt E&m Estab Mod-hi 2 [facility], [address] [address], [place], [address], [place] tel:[phone] [facility] GI Symptoms or Concerns (chief complaint) Recurrent Clostridium difficile diarrheaPerso nal history of colon cancerEssenti al (primary) hypertension Sep- 2 Theodore Baeza. [address] [facility], [facility] [address], [place], [place], [address], [place]. tel:[phone] Referring Provider: Jasmin Lopez, [address] [facility] [address], [place], [address] . tel:[phone] [facility], [address] [address], [place], [address], [place] tel:[phone] [facility] No Information Dec- 2 Arcadio Verduzco. [address] [facility], [facility] [address], [place], [address], [place]. tel:[phone] [facility], [address] [address], [place], [address], [place] tel:[phone] [facility] Recurrent Clostridium difficile diarrhea 2 Luca Villalta. [address] [facility], [facility] [address], [place], [place], [address], [place]. tel:[phone] Subsqt Hosp-da E&m Minr Compl [facility], [address] [address], [place], [address], [place] tel:[phone] [facility] No Information 2 Shaun Castellanos. [address] [facility], [facility] [address], [place], [address], [place]. tel:[phone] Referring Provider: Herve Ramirez, [address], [place], [address] . tel:[phone] Init Hosp-da E&m Mod Severity [facility], [address] [address], [place], [address], [place] tel:[phone] [facility] No Information 2 Luca Villalta. [address] [facility], [address], [place], [place], [address], [place]. tel:[phone] Referring Provider: Gavin OBRIEN, [address] [place] [address], [address]. tel:[phone] [facility], [address] [address], [place], [address], [place] tel:[phone] [facility] No Information 2 Genna Parks. [address] [facility], [facility] [address], [place], [address], [place]. [phone] Telephone E&M II 11-20 Min ANSELMO [facility], [address] [address], [place], [address], [place] tel:[phone] [facility] GI Symptoms or Concerns (chief complaint) Right upper quadrant abdominal painPersonal history of colon cancer 1 Kofi Jeter. [address] [facility], [facility] [address], [address], [place]. [phone] Referring Provider: Milind Matias MD, [address] [facility] [address], [place], [address] . tel:[phone] [facility], [address] [address], [place], [address], [place] tel:[phone] [facility] No Information 1 Edwar Rosas. [address] [facility], [facility] [address], [place], [place], [address], [place]. [phone] [facility], [address] [address], [place], [address], [place] tel:[phone] [facility] No Information 0 Lorena Baez. [address] [facility], [facility] [address], [place], [place], [address], [place]. tel:[phone] Subsqt Hosp-da E&m Minr Compl [facility], [address] [address], [place], [address], [place] tel:[phone] [facility] No Information 2 0 Kate Nugent. [address] [facility], [address], [place], [place], [address], [place]. tel:[phone] Referring Provider: Jovanna Crowley, [address] [facility] [address], [place], [address] . tel:[phone] [facility], [address] [address], [place], [address], [place] tel:[phone] [facility] Generalized abdominal pain 0 Lorena Baez. [address] [facility], [address], [place], [place], [address], [place]. tel:[phone] Init Hosp-da E&m Mod Severity [facility], [address] [address], [place], [address], [place] tel:[phone] [facility] No Information 0 Lorena Baez. [address] [facility], [address], [place], [place], [address], [place]. [phone] Referring Provider: Nestor Carrillo MD, [address] [facility] [address], [place], [address] . tel:[phone] [facility], [address] [address], [place], [address], [place] tel:[phone] [facility] No Information 0 Genna Parks. [address] [facility], [address], [place], [place], [address], [place]. tel:[phone] [facility], [address] [address], [place], [address], [place] tel:[phone] [facility] No Information 8 Theodore Baeza. [address] [facility], [facility] [address], [place], [place], [address], [place]. tel:[phone] Referring Provider: Courtney Cervantes, [address] [place] [address], [address]. tel:[phone] Init Inpt Cons New/est Mod-hi [facility], [address] [address], [place], [address], [place] tel:[phone] [facility] No Information 8 Edwar Rosas. [address] [facility], [facility] [address], [place], [address], [place]. tel:[phone] Referring Provider: Courtney Cervantes, [address] [place] [address], [address]. tel:[phone] Subsqt Hosp-da E&m Minr Compl [facility], [address] [address], [place], [address], [place] tel:[phone] [facility] No Information 7 No Information Referring Provider: Courtney Cervantes, [address] [place] [address], [address]. tel:[phone] Init Hosp-da E&m Mod Severity [facility], [address] [address], [facility], [address], [place] tel:[phone] [facility] No Information 7 Theodore Baeza. [address] [facility], [facility] [address], [place], [place], [address], [place]. tel:[phone] Referring Provider: Courtney Cervantes, [address] [place] [address], [address]. tel:[phone] [facility], [address] [address], [place], [address], [place] tel:[phone] [facility] No Information 7 Arcadio Verduzco. [address] [facility], [facility] [address], [place], [address], [place]. tel:[phone] Referring Provider: Courtney Cervantes, [address] [place] [address], [address]. tel:[phone] [facility], [address] [address], [place], [address], [place] tel:[phone] [facility] Adenomatous colon polyp 7 Arcadio Verduzco. [address] [facility], [facility] [address], [place], [address], [place]. tel:[phone] Init Hosp-da E&m Mod Severity [facility], [address] [address], [place], [address], [place] tel:[phone] [facility] No Information 7 No Information Referring Provider: Courtney Cervantes, [address] [place] [address], [address]. tel:[phone] Offic/outpt E&m Estab Low-mod [facility], [address] [address], [place], [address], [place] tel:[phone] [facility] GI Symptoms or Concerns (chief complaint) Adenomatous colon polypAbnormal CT scan, colonFamily history of colon cancer 6 No Information Referring Provider: Courtney Cervantes, [address] [place] [address], [address]. tel:[phone] [facility], [address] [address], [place], [address], [place] tel:[phone] [facility] Colon polyp 6 Esperanza Monsalve. [address] [facility], [facility] [address], [place], [place], [address], [place]. tel:[phone] Offic/outpt E&m Estab Mod-hi 2 [facility], [address] [address], [place], [address], [place] tel:[phone] [facility] GI Symptoms or Concerns (chief complaint) Colon polypDietary counseling and surveillanceE levated blood-pressur e reading, w/o diagnosis of htn 6 Ernesto Mosquera. [address] [facility], [address], [place], [place], [address], [place]. tel:[phone] Referring Provider: Referral Self, USE FOR SELF REFERRALS. Offic/outpt E&m Estab Minor [facility], [address] [address], [place], [address], [place] tel:[phone] [facility] GI Symptoms or Concerns (chief complaint) Colon polypFamily history of cancer of gastrointesti nal tractDietary Surveil/couns el 4 No Information Referring Provider: Courtney Cervantes, [address] [place] [address], [address]. tel:[phone] Subsqt Hosp-da E&m Minr Compl [facility], [address] [address], [place], [address], [place] tel:[phone] [facility] No Information No Information Referring Provider: Kayla Crowley, [address] [facility] [place] [address], [place], [address]. tel:[phone] [facility], [address] [address], [place], [address], [place] tel:[phone] [facility] No Information Gonzalo Gibson. [address] [facility], [facility] [address], [place], [place], [address], [place]. tel:[phone] Referring Provider: Kayla Crowley, [address] [place] [address], [place], [address]. tel:[phone] Init Hosp-da E&m Mod Severity [facility], [address] [address], [place], [address], [place] tel:[phone] [facility] No Information No Information Referring Provider: Kayla Crowley, [address] [place] [address], [place], [address]. tel:[phone] Family History Family Member Type Diagnosis Age At Onset Sister Problem (finding) Maternal history of reg betes mellitus Mother Problem (finding) Alive and well Sister Problem (finding) Alive and well Brother Problem (finding) Alive and well Sister Problem (finding) cancer of colon Father Problem (finding) Alive and well Father Problem (finding) malignant neoplasm of l linda Brother Problem (finding) hypertension Father Problem (finding) Maternal history of reg betes mellitus Mother Problem (finding) cancer of colon Brother Problem (finding) Maternal history of reg betes mellitus Mother Problem (finding) Maternal history of reg betes mellitus Immunizations Vaccine Date Status Comments Engerix-B administered Note: [facility] bi-d irectional interface ; Source: Other Registry Engerix-B administered Note: [facility] bi-d irectional interface ; Source: Other Registry SARS-COV-2 (COVID-19) vaccin e, mRNA, spike protein, LNP, preservative free, 100 mcg/0.5mL dose or 50 mcg/0.25mL dose administered Note: [facility] bi-direct ional interface ; Source: Other Registry SARS-COV-2 (COVID-19) vaccin e, mRNA, spike protein, LNP, preservative free, 100 mcg or 50 mcg dose administered Note: [facility] bi-direct ional interface ; Source: Other Registry SARS-COV-2 (COVID-19) vaccin e, mRNA, spike protein, LNP, preservative free, 100 mcg/0.5mL dose administered Note: [facility] bi-direct ional interface ; Source: Other Registry SARS-COV-2 (COVID-19) vaccin e, mRNA, spike protein, LNP, preservative free, 100 mcg/0.5mL dose or 50 mcg/0.25mL dose administered Note: [facility] bi-direct ional interface ; Source: Other Registry SARS-COV-2 (COVID-19) vaccin e, mRNA, spike protein, LNP, preservative free, 100 mcg or 50 mcg dose administered Note: [facility] bi-direct ional interface ; Source: Other Registry SARS-COV-2 (COVID-19) vaccin e, mRNA, spike protein, LNP, preservative free, 100 mcg/0.5mL dose administered Note: [facility] bi-direct ional interface ; Source: Other Registry Influenza, recombinant, quadrivalent, injectable, preservative free administered Note: [facility] bi-direct ional interface ; Source: Other Registry Seasonal, quadrivalent, recombinant, injectable influenza vaccine, preservative free administered Note: [facility] bi-direct ional interface ; Source: Other Registry Afluria Qd administered Note: M [facility] bi-directional interface ; Source: Other Registry Afluria Qd administered Note: M [facility] bi-directional interface ; Source: Other Registry Afluria Qd administered Note: M [facility] bi-directional interface ; Source: Other Registry Afluria Qd administered Note: M [facility] bi-directional interface ; Source: Other Registry Afluria Qd administered Note: M [facility] bi-directional interface ; Source: Other Registry Afluria Qd administered Note: M [facility] bi-directional interface ; Source: Other Registry Fluzone Quad 6mo or older administered Note: [facility] bi-direct ional interface ; Source: Other Registry Afluria Qd administered Note: M [facility] bi-directional interface ; Source: Other Registry Afluria Qd administered Note: M [facility] bi-directional interface ; Source: Other Registry Fluzone Quad 6mo or older administered Note: [facility] bi-direct ional interface ; Source: Other Registry Influenza, injectable, quadrivalent, preservative free, 3 yrs or older administered Source: Other Provi moses Influenza virus vaccine, injectable, quadrivalent, split virus, preservative free, 3 years or older Fluarix Quad administered Source: Other Provid er Afluria Qd administered Note: M [facility] bi-directional interface ; Source: Other Registry Afluria Qd administered Note: M [facility]IC bi-directional interface ; Source: Other Registry Fluzone Quad 6mo or older administered Note: [facility] bi-direct ional interface ; Source: Other Registry Influenza virus vaccine, injectable, quadrivalent, split virus, preservative free, 3 years or older Fluarix, Flulaval or Fluzone Quad administered Note: [email or web address] documented admin date was . ; Source: Other Provider tetanus toxoid, reduced diphtheria toxoid, and acellular pertussis vaccine, adsorbed administered Note: [facility] bi-direct ional interface ; Source: Other Registry Pneumovax 23 administered Note: [facility] bi-d irectional interface ; Source: Other Registry Influenza, split virus, trivalent, injectable, preservative free administered Note: [facility] bi-direct ional interface ; Source: Other Registry Influenza, seasonal, injectable, preservative free administered Note: [facility] bi-directional interface ; Source: Other Registry Payers Payer name Insurance type Covered green party ID Authoriza tion(s) Medicare NGS MB [id number] [employer] [id number] Social History Type Description Quantity Date Captured Comments Alcohol Use Details Unknown Caffeine Use Details Unknown Tobacco Use Status No Information Smoking Status No Information Sex Male Chief Complaint And Reason For Visit No Information Reason For Referral Reason For Referral No Information Plan Of Treatment Date Type Action Status Goal Lifestyle education regardin g diet completed Goal Lifestyle education regardin g diet completed Referral Ordered: referred to Clinical Genetics () multiple FDRs with cancer First Available Appointment date/timeframe: 07/21/2023 ordered Referral Ordered: IMT Capsule Appointment date/timeframe: 01/14/2023 ordered Referral Ordered: follow-up visit with Dax Castillo MD KOJO ordered Referral Ordered: EUS Appointment date/timeframe: -today ordered Referral Ordered: EGD Appointment date/timeframe: -today ordered Referral Ordered: Potassium Appointment date/timeframe: 05/22/2015 ordered History Of Present Illness Encounter Date Complaint History Of Flash nt Illness GI Symptoms or Concerns This is a 53-year-old gentleman with a past medical history of 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 Patient has done well after stool transplant. Patient is currently having 2 bowel movements a day. Before stool transplant was having 10 bowel movements a day. Patient has been able to increase weight and has gained 10 pounds of weight. Patient's abdominal pain has significantly subsided able to have 2 meals a day were before he was only able to take bites of food. Of note November of 2022 patient did have a colonoscopy that did show a polyp and recommended colonoscopy repeat for surveillance purposes December of 2023. Patient stopped smoking and stopped alcohol use as he is working towards a kidney transplant. From a family history standpoint patient has an aunt with pancreatic cancer, sister and mother with colon cancer and a father with lung cancer. Patient does not remember having any genetic testing at the time of his colon cancer diagnosis. GI Symptoms or Concerns Jcarlos is a 52-year-old male being visit for recurrent C diff. He states he was originally diagnosed approximately 6 years ago. He has end-stage renal disease and is on dialysis. He has diabetes. He is had numerous recurrences of C diff over the years. He has very atypical type symptoms. He is on narcotics for pain control and states that he suffers from severe constipation. He states the main symptoms he gets when he has these had the C diff is that he has nausea, abdominal pain and indigestion. He suffers from severe bloating as well. His last positive testing was in July in [place] he tells me. I actually do not have access to that. He was given Dificid at that time and had a good response. He states 2-3 weeks after the deficit was completed he had recurrence of his ongoing symptoms. He states at times they will not do C diff testing because the stool tends not to be liquid when he turns addendum. He does not have significant diarrhea during his bouts of C diff. He states that when he is on treatment he feels much better and will continue to feel better for a few weeks after the treatment has been stopped. He will then have recurrence. He has been on vancomycin multiple times in the past but that has not been as helpful as deficit. He has been referred over to consider possible FMT. He has a colonoscopy scheduled in November. He has a history of colorectal cancer in 2017 status post resection. GI Symptoms or Concerns This is a 52-year-old man on chronic dialysis, disabled because of end-stage renal disease and back problems. He is on chronic opiate pain medicine with subsequent constipation for which he takes every other day MiraLax and senna. He had a sigmoid colon cancer resected in 2017, subsequent colonoscopies have been rescheduled. There is a history of recurrent C diff. He apparently had a positive C diff test in [place] in September of 2021, not clear which C diff was positive just now. He was treated with vancomycin and then fidaxomicin. The patient reports that he does not get typical diarrhea with his C diff because of his problems with constipation, opiate pain medicines and residents he takes because of the kidney disease. What he gets his alternating formed and loose stools with very foul smelling sticky stools at times . Finds his symptoms very disturbing and is convinced is C diff causing the problem. GI Symptoms or Concerns I had th e pleasure of having a telephone consultation with Mr. Vik Thakkar due to the COVID-19 pandemic.Mr. Thakkar consented to a telephone consultation, we were alone on the line together, we spoke for approximately 15 minutes, and I spent an additional 10 minutes reviewing his medical record and coordinating care. The level of clinical decision making was moderate to high.CHIEF COMPLAINTRight upper quadrant abdominal pain, personal history of colon polyps.As you recall, Vik is a 50-year-old gentleman with multiple medical problems including end-stage renal disease on dialysis, diabetes, personal history of colon cancer status post resection and chemotherapy in 2017, recurrent C. diff infection, and biliary disease status post cholecystectomy in 2017 with recurrent right upper quadrant abdominal pain since that time.Vik tells me that his right upper quadrant pain has been bothersome to him for years. He describes a sharp pain in the right upper GI Symptoms or Concerns This pat ient is a 46-year-old male from [place], [place], seen in clinic again today to arrange colonoscopy for the specific purpose of removing sigmoid colon polyp noted during procedure by Dr. Sánchez on August 11, 2013. At that time, a 2 cm ulcerated pedunculated polyp was noted 20 cm from the anal verge. Biopsies of the lesion which was not removed showed tubular adenoma with high-grade dysplasia consistent with advanced adenoma. The procedure was compromised because of poor preparation. At the same time, upper endoscopy was performed and showed normal duodenum, gastropathy, most notably in the fundus and a normal esophagus. Patient was advised to return for followup colonoscopy after adequate preparation. Patient was last seen in the clinic in this regard in May of this year by Dr. Orozco. Arrangements were made for the followup colonoscopy, but I learned today that, that was never done. According to the patient, he had extreme anxiety about the required colon pr GI Symptoms or Concerns The mynor ent is a 45-year-old male from [facility] seen today in followup regarding a colon polyp. Records were reviewed and updated history was obtained from the patient. He was seen as an inpatient by Dr. Block on 08/10/2013 because of nausea, vomiting, and passage of blood in the stool. The patient subsequently underwent upper and lower endoscopy by Dr. Sánchez on 08/11/2013. Colonoscopy of the cecum was complicated by what was described as poor preparation. A 2 cm ulcerated pedunculated polyp was noted at 20 cm from the anal verge and was biopsied, but not removed. The pathology report on this lesion indicated there is a tubular adenoma with high grade dysplasia consistent with advanced adenoma. At the same EGD procedure showed normal duodenum, gastropahty, most notable in the fundus and a normal esophagus. Biopsies of the stomach were reported to be unremarkable. The patient was advised, therefore, to return for follow up colonoscopy after adequate preparation to look for additional lesions and to excise the previously noted polyp. Since that hospitalization, the patient has been doing well clinically from the gastrointestinal standpoint. He occasionally sees blood in the stool. He denies abdominal pain, nausea, vomiting, hematemesis, indigestion, heartburn, regurgitation, dysphagia, or odynophagia at the present time. Should be noted that he has chronic renal disease and he is on hemodialysis three days a week. It has been the case for the past four years. The patient has a good appetite and his weight has been stable. He has had no other gastrointestinal problems except as mentioned. His mother of colon cancer age 55, and a sister of colon cancer at age 46. Family history is otherwise negative from the gastrointestinal standpoint. The patient has a history of hypertension, a shunt in his left upper extremity, and history of diabetes mellitus, which currently is being treated and well controlled. GI Symptoms or Concerns The mynor ent is a 44-year-old male from [facility] seen today in followup regarding a colon polyp. Records were reviewed and updated history was obtained from the patient. He was seen as an inpatient by Dr. Block on 08/10/2013 because of nausea, vomiting, and passage of blood in the stool. The patient subsequently underwent upper and lower endoscopy by Dr. Sánchez on 08/11/2013. Colonoscopy of the cecum was complicated by what was described as poor preparation. A 2 cm ulcerated pedunculated polyp was noted at 20 cm from the anal verge and was biopsied, but not removed. The pathology report on this lesion indicated that yet as indicated there is a tubular adenoma with high grade dysplasia consistent with advanced adenoma. At the same EGD procedure showed normal duodenum, gastropahty, most notable in the fundus and a normal esophagus. Biopsies of the stomach were reported to be unremarkable. The patient was advised, therefore, to return for follow up colonoscopy after a Functional Status Date Functional Assessmen t No Information Instructions Date Instruction Additional Infor dione -- I am glad to hear that you are doing better after the stool transplant-- if any doctor or provider offers you an antibiotic in the future please discuss with them that you had previous bouts of Clostridium difficile to ensure that it is absolutely necessary that you take an antibiotic-- since you have a significant family history of cancer with your mother and sister with colon cancer aunt with pancreatic cancer in father with lung cancer we will send you to a launderette attendant to discuss taking some blood for gene mutation testing that increases risk of cancer to ensure that you do not need more frequent screening for other types of cancer in addition to the colon cancer that you had-- we will put up a follow up colonoscopy December of 2023 as he will be due as you had 8 polyps removed last year 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 Start fidaxomicin 200 milligrams twice daily for 14 days. 2. Referral to [facility] for IMT capsules. 3. Follow-up colonoscopy as already ordered. 4. Return to clinic in 4 months. 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 Will need to be done at [facility] with admit day before because of past syncope with bowel prep. 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 Proceed with sche duled colonoscopy on October 16. We will try to add on an upper endoscopy at the same time on that day with Dr. Vann. We would recommend biopsies of the stomach and duodenum.2. If the endoscopy is normal, then he is accepting that the pain may be functional or related to adhesions, there may not be much we can do, especially in light of the fact that he is on chronic opioid medications. Perhaps, something like nortriptyline or duloxetine could help with pain, though I am skeptical if that would work.We will leave his next appointment on an as-needed basis for now.Thank you so much for involving me in the care of Mr. Thakkar. Related to Right upper quadrant abdominal pain Patient will be sche duled for colonoscopy. I reviewed the procedure with him. He understands and consents. Further comments and recommendations will follow after this is completed. Related to Adenomatous colon polyp Colonoscopy Related to Benig n neoplasm of colon, unspecified Colonoscopy Related to Benig n neoplasm of colon, unspecified Lifestyle education regarding di et Related to Dietary counseling and surveillance 1. As previously rec ommended. We will arrange colonoscopy. I reviewed with the patient procedure, indications, alternatives, benefits, and risks. He understands and consents to proceed. As per protocol, prep will be with MoviPrep.2. Further, and recommendations to follow up. Related to Colon polyp Lifestyle education regarding di et Related to Dietary surveillance and counseling Assessments Type Assessment Date No Information Patient Care Teams Name Effective Dates (start - stop) Status Members No Information
--- OUTSIDE RECORDS SUMMARY | 2024-06-08 16:35 | XMS_ITS | Continuity of Care Document ---
Author Organization [facility] Address [address] [place] [address] Phone Care Team Providers Care Spring Coiler Hand Name Role Phone Unavailable Unavailable Unavailable Medications [...] Providers Copied on Encounter ESTELA Blackmon, [address], [place], [place], [address], [place] tel:[phone] [facility] No Information 3 No Information Referring Provider: Courtney Crowley, [address] [place], [address]. tel:[phone] Offic Cons New/estab Mod-hi 60 MARYSOL Blackmon, [address], [place], [place], [id number], [place] tel:[phone] [facility] No Information [address], [address], [place], [address], [place]. tel:[phone] Referring Provider: Courtney Crowley, [address] [place], [address]. tel:[phone] Family History Family Member Type Diagnosis Age At Onset No Information Payers Payer name Insurance type Covered republican ID Flory garcia(s) [employer]-Medicaid [place] [id number] Social History Type Description Quantity Date Captured [...]
--- OUTSIDE RECORDS SUMMARY | 2024-06-08 16:35 | XMS_ITS | Continuity of Care Document ---
Author Organization [facility] Address [address] [place] [address] Phone Care Team Providers Care African History Professor Name Role Phone Shalom Whitman MD Unavailable Unavailable Allergies, Adverse Reactions, Alerts Substance Reaction Status Criticality adhesive Active No Information Penicillins Active No Information lisinopril Angioedema Active No Information hydromorphone Active No Information HYDROMORPHONE HCL Active No Informa tion Medications Medication Instructions Dosage Effective Dates (start - stop) Status Comments SUCRALFATE (unknown strength) Not Available - Active SEVELAMER CARBONATE (unknown strength) Not Available - Active POLYETHYLENE GLYCOL 3350 (unknown strength) Not Available - Active PANTOPRAZOLE SODIUM (unknown strength) Not Available - Active OXYCODONE HCL (unknown strength) Not Available - Active ONDANSETRON ODT (unknown strength) Not Available - Active NICOTINE PATCH (unknown strength) Not Available - Active METOPROLOL TARTRATE (unknown strength) Not Available - Active LIDOCAINE-PRILOCAINE (unknown strength) Not Available - Active BUSPIRONE HCL (unknown strength) Not Available - Active SUPER VITAMIN B COMPLEX (unknown strength) Not Available - Active ASPIRIN (unknown strength) Not Available - Active ATORVASTATIN CALCIUM (unknown strength) Not Available - Active AMLODIPINE BESYLATE (unknown strength) Not Available - Active Procedures Procedure Date Office/Outpatient Visit,Est, Mod 2022 X-Ray Exam Lwr Spine, Min 4 Views Office/Outpatient Visit,New, Mod 2019 X-Ray Exam Of Neck Spine2-3 Views Advance Directives Directive Yes / No Effective Date File Name No Information Encounters Encounter Description Practice Location Reason(s) For Visit Diagnoses Date Provider Providers Copied on Encounter [facility], [address], [place], [place], [id number], [place] tel:[phone] [facility] [place] No Information Antonette Rausch. [facility] [place], [address] [place] [address], [address], [place], [place], [id number], . tel:[phone] Office/Outpati ent Visit,Est, Mod [facility], [address], [place], [place], [id number], [place] tel:[phone] [facility] Radiculopathy , thoracic region Milind Berrios. [facility] [place], [address] [place] [address] [address], [place], [place], [id number], . tel:[phone] Referring Provider: Yash Skelton, [facility] [address] [facility], [place], [address]. tel:[phone] Office/Outpati ent Visit,New, Mod [facility], [address], [place], [place], [address], [place] tel:[phone] [facility] Other spondylosis, cervical regionOther spondylosis, lumbar region Milind Berrios. [facility] [place], [address] [place] [address] [address], [place], [place], [id number], . tel:[phone] Referring Provider: Yash Skelton, [facility] [address] [facility], [place], [address]. tel:[phone] Family History Family Member Type Diagnosis Age At Onset No Information Payers Payer name Insurance type Covered green party ID Authordaisya jose(s) Medicare MB [id number] [employer] BLAISE Mendez ([id number]) CI [id number] Social History Type Description Quantity Date Captured Comments Sex Male Smoking Status No Information Chief Complaint And Reason For Visit No Information Reason For Referral Reason For Referral No Information Plan Of Treatment Date Type Action Status Appointment Vik Thakkar BOOKED History Of Present Illness Encounter Date Complaint History Of Prese nt Illness No Information Functional Status Date Functional Assessmen t No Information Instructions Date Instruction Additional Infor mation No Information Assessments Type Assessment Date No Information Patient Care Teams Name Effective Dates (start - stop) Status Members No Information
--- OUTSIDE RECORDS SUMMARY | 2024-06-08 16:36 | XMS_ITS | Clinical Summary ---
Author Organization [facility] Address [address] [place] [address] Care Team Providers Care Glycerin Operator Name Role Phone Kedar Tello MD Unavailable [phone] Rosamaria Garcia PA-C Primary Care Provider [phone] Allergies Active Allergy Reactions Criticality Noted Date Comments Dilaudid Cough 02/07/2012 Lisinopril Difficulty breathing High 04/11/2014 Penicillin G 01/25/2012 Adhesive Tape Rash Low 01/25/2012 Medications AMLODIPINE BESYLATE PO Take 10 mg by mouth daily. Active B Complex Vitamins (VITAMIN B COMPLEX) tablet Take 1 tablet by mouth daily Active PARICALCITOL PO Take 2 mcg by mouth three times a week Active Omeprazole (PRILOSEC PO) Take 20 mg by mouth every morning Active B apfvyhw-O-iljjq acid (NEPHROCAPS) 1 MG capsule Take 1 capsule by mouth daily Active calcium acetate (PHOSLO) 667 MG CAPS Take 667 mg by mouth 3 times daily (with meals) Active METOPROLOL TARTRATE POIndications:Hyp ertension Take 50 mg by mouth daily Taken on non dialysis days Active GABAPENTIN PO Take 100 mg by mouth daily Active sevelamer (RENVELA) 800 MG tabletIndications :ESRD (end stage renal disease) on dialysis (H),Hyperphosphat emia,Essential hypertension Take 3 tablets (2,400 mg) by mouth 3 times daily (with meals) 540 tablet 3 8 Active amLODIPine (NORVASC) 10 MG tabletIndications :ESRD (end stage renal disease) on dialysis (H),Hyperphosphat emia,Essential hypertension Take 1 tablet (10 mg) by mouth daily 90 tablet 3 8 Active LORazepam (ATIVAN) 0.5 MG tablet Take 0.5 mg by mouth 2 times daily as needed for anxiety Active oxyCODONE (ROXICODONE) 5 MG tablet Take 5 mg by mouth 2 times daily as needed for severe pain Active Encounters Date Type Department Care Team Description 04/24/2024 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 [facility] [address] [place] [address] Gio Dubon MD 04/17/2024 Telephone [facility] [address] [place] [address] Ekta Fernandes RN from Last 3 Months Family History Medical History Relation Comments Diabetes Brother Coronary Artery Disease Father Cancer - colorectal Mother Diabetes Mother Cancer - colorectal Sister Diabetes Sister Relation Status Comments Brother Father Mother Sister Social History Tobacco Use Types Packs/Day Years [...] on file Legal Sex Male 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 Gender Identity Not on file Sexual Orientation Not on file Last Filed Vital Signs Vital Sign Reading Time Taken Comments Blood Pressure 177/93 12/15/2023 10:45 AM CDT Pulse 62 12/15/2023 10:45 AM CDT Temperature 36.1 C (97 F) 12/15/2023 10:45 AM CDT Respiratory Rate 16 12/15/2023 10:45 AM CDT Oxygen Saturation 100% 12/15/2023 10:45 AM CDT Inhaled Oxygen Concentration - - Weight 63.5 kg (140 lb) 02/15/2023 8:55 AM CDT Height 165.1 cm (5' 5) 02/15/2023 8:55 AM CDT Body Mass Index 23.3 02/15/2023 8:55 AM CDT Plan of Treatment Upcoming Encounters Date Type Department Care Team (Late st Contact Info) Description 06/19/2024 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 [facility] [address] [place] [address] Hugo Sainz MD [facility] [address] [place], [place] [id number] Health Maintenance Due Date Last Done Comments A1C 1971 ADVANCE CARE PLANNING 1971 ANNUAL REVIEW OF HM ORDERS 1971 CT COLONOGRAPHY 1971 DIABETIC FOOT EXAM 1971 EYE EXAM 1971 FLEX SIG 1971 LIPID 1971 MICROALBUMIN 1971 sDNA (Cologuard) 1971 FIT 03/15/2012 03/15/2011 LUNG CANCER SCREENING 2021 03/08/2016, 014 ZOSTER IMMUNIZATION (1 of 2) 2021 DTAP/TDAP/TD IMMUNIZATION (2 - Td or Tdap) 10/27/2021 10/28/2011 HEPATITIS B IMMUNIZATION (4 of 4 - Risk Dialysis Recombivax 3-dose series) 09/17/2022 09/17/2021, 04/03/2021, 07/11/2020 MEDICARE ANNUAL WELLNESS VISIT 09/17/2022 09/17/2021 COVID-19 Vaccine (3 - season) 2024 06/23/2020, 05/30/2020 PHQ-2 (once per calendar year) 2024 01/18/2023 Pneumococcal Vaccine: 50+ Years (4 of 4 - PCV20 or PCV21) 06/13/2024 06/13/2019, 05/26/2018, 03/17/2011 BMP 08/10/2024 08/11/2023, 01/04/2023 COLONOSCOPY 12/15/2032 12/15/2022, 1009/2016, 10/25/2016, Additional history exists COLORECTAL CANCER SCREENING 12/15/2032 HEPATITIS C SCREENING Completed 12/26/2021 HIV SCREENING Completed 10/01/2022 INFLUENZA VACCINE Completed 02/15/2024, , 02/05/2022, Additional history exists HPV IMMUNIZATION Aged Out No longer e ligible based on patient's age to complete this topic MENINGITIS IMMUNIZATION Aged Out No l onger eligible based on patient's age to complete this topic Procedures Procedure Name Priority Date/Time Associated Diagnosis Comments BASIC METABOLIC PANEL STAT 08/11/2023 8:56 AM CDT from Last 3 Months or Most Recently Relevant to Health Maintenance Results * (ABNORMAL) Basic metabolic panel (08/11/2023 8:56 AM CDT) [facility] Sodium 138 135 - 145 mmol/L 08/11/2023 10:33 AM CDT [facility] Comment:Reference intervals for this test were updated on 01/25/2023 to more accurately reflect our healthy population. There may be differences in the flagging of prior results with similar values performed with this method. Interpretation of those prior results can be made in the context of the updated reference intervals. Potassium 6.6(HH) 3.4 - 5.3 mmol/L 08/11/2023 10:33 AM CDT [facility] Chloride 102 98 - 107 mmol/L 08/11/2023 10:33 AM CDT [facility] Carbon Dioxide (CO2) 23 22 - 29 mmol/L 08/11/2023 10:33 AM CDT [facility] Anion Gap 13 7 - 15 mmol/L 08/11/2023 10:33 AM CDT [facility] Urea Nitrogen 44.3(H) 6.0 - 20.0 mg/dL 08/11/2023 10:33 AM CDT [facility] Creatinine 13.49(H) 0.67 - 1.17 mg/dL 08/11/2023 10:33 AM CDT [facility] GFR Estimate 4(L) >60 mL/min/1. 73m2 08/11/2023 10:33 AM CDT [facility] Calcium 9.5 8.6 - 10.0 mg/dL 08/11/2023 10:33 AM CDT [facility] Glucose 77 70 - 99 mg/dL 08/11/2023 10:33 AM CDT [facility] Blood BLOOD SPECIMEN / Unknown Venipuncture / Unknown 08/11/2023 8:56 AM CDT 08/11/2023 8:59 AM CDT Dax Lorenz PA-C LAB - BLOOD ORDERAB LES Final Result [facility] [address] [facility] (1st floor, no room number) [place] [address], [facility] from Last 3 Months or Most Recently Relevant to Health Maintenance Insurance MEDICA ACCESS ABILITY [place] [employer] MEDICARE ADVANTAGE MED[employer] ACCESS [place]ILITY [place] [employer] MEDICARE ADVANTAGE Care Teams Glycerin Operator Relationship Specialty Start Date End Date Rosamaria Garcia PA-C [address] [place] [address] PCP - General 12/15/23 [place] [address] [place] [address] Assigned Gastroenterology Provider 01/29/23
--- OUTSIDE RECORDS SUMMARY | 2024-06-08 16:36 | XMS_ITS | Data Portability ---
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 Plan of Treatment Reminders Order Date Submit Date Provider Last Modified By Organization Details Last Modified Time Details Appointments None recorded. Lab urinalysis , dipstick 2023 024 [email or web address] [facility], [address] [facility] [address] [facility], [address], [place], [address], 11:43:13 Referral None recorded. Procedures None recorded. Surgeries None recorded. Imaging None recorded. Medication Orders None recorded. Patient TargetsNo targets recorded. Patient Instructions Encounter Date Encounter Id Patient Instructions Last Modified By Organization Details Last Modified Time 09/29/2023 [id number] will set up for cysto possible bladder biopsy/fulguratio n. [email or web address] Not available 09/29/2023 11:42:13 Reason for Referral None Reported. Results Created Date Observation Date Name Description Value Unit Range Abnormal Flag Note LastModifiedBy Organization Detail LastModifiedTime 09/29/19 24 09/29/2023 urina lysis , dipst ick pH-Status 8.5 Not Available [facility] [address] [facility] [address], [place], [address], 09/28/2023 18:15:50 09/29/19 24 09/29/2023 urina lysis , dipst ick Blood-Status Small Not Available [facility] [address], [place], [address], 09/28/2023 18:15:50 Result Notes None recorded. Procedures Surgical History Date Name Laterality Status Provider Name and Address Organization Details Recorded Time Eye surgery follow-up add-on completed Juan Francisco Don MD [address] [facility],[address], [place], [address], [facility] 09/29/2023 11:31:24 Imaging Results None recorded. Procedure Notes None recorded. Medical Equipment None Reported. Allergies Allergen ID Allergen Name Allergen Category Reaction Reaction Severity Criticality Documentation Date Start Date Code Code System Note Provider Name and Address Organization Details Recorded Time 532422 Product containin g penicilli n and antibioti c (product) medicatio n Not available Not available Not available 09/29/2023 10649 05 SNOMED Not Available Not Available Not Available 122655 lisinopri l medicatio n Not available Not available Not available 09/29/2023 70993 RxNorm Not Available Not Available Not Available 462901 Dilaudid medicatio n Not available Not available Not available 09/29/2023 45260 3 RxNorm Not Available Not Available Not Available Medications Name Sig Start Date Stop Date Status Note LastModified by Organization Details LastModified Time atorvastati n 40 mg tablet TAKE ONE TABLET (40 MG) BY MOUTH AT BEDTIME. active Not Available Not Available No t Available buspirone 5 mg tablet TAKE ONE TABLET(5M G) BY MOUTH TWO TIMES DAILY active Not Available Not Available No t Available clonidine HCl 0.1 mg tablet TAKE ONE TABLET (0.1 MG) BY MOUTH TWO TIMES DAILY. active Not Available Not Available No t Available tizanidine 2 mg tablet TAKE 1 TABLET UP TO 2 TIMES DAILY IF NEEDED FOR MUSCLE SPASM active Not Available Not Available No t Available prednisone 20 mg tablet TAKE TWO TABLETS(4 0MG) BY MOUTH EVERY DAY FOR 3 DAYS, THEN 1 TAB(20MG) EVERY DAY FOR 3 DAYS THE 1/2 TABLET(10 MG) EVERY DAY FOR 4 DAYS active Not Available Not Available No t Available ondansetron 8 mg disintegrat ing tablet DISSOLVE 1 TABLET (8 MG) ON THE TONGUE EVERY EIGHT HOURS NEEDED FOR NAUSEA AND VOMITING. active Not Available Not Available No t Available lidocaine-p rilocaine 2.5 %-2.5 % topical cream APPLY A SMALL AMOUNT TO SKIN THREE TIMES A WEEK APPLY TO SKIN OVER DIALYSIS ACCESS 30 MIN PRIOR TO EACH DIALYSIS active Not Available Not Available No t Available famotidine 20 mg tablet TAKE ONE TABLET (20 MG) BY MOUTH TWO TIMES DAILY. active Not Available Not Available No t Available lorazepam 0.5 mg tablet TAKE 1 TABLET BY MOUTH ON DIALYSIS DAYS AND CAN TAKE 1 TABLET TWICE A DAY NEEDED ON NON-DIALY SIS DAYS FOR ANXIETY 09/28 completed Not Available Not Available Not Available dicyclomine 20 mg tablet TAKE 1 TABLET BY MOUTH UP TO 2 TIMES A DAY FOR IBS CRAMPING/ PAIN active Not Available Not Available No t Available amlodipine 10 mg tablet TAKE ONE TABLET (10 MG) BY MOUTH ONCE DAILY. active Not Available Not Available No t Available hyoscyamine sulfate 0.125 mg tablet TAKE 2 TABLETS (0.25 MG) BY MOUTH EVERY 4 HOURS IF NEEDED FOR COLIC. active Not Available Not Available No t Available lorazepam 1 mg tablet TAKE 1 TABLET (1 MG) BY MOUTH ONCE DAILY IF NEEDED (FOR SEVERE ANXIETY). 09/28 completed Not Available Not Available Not Available oxycodone 5 mg tablet TAKE 2 TABLETS (10 MG) BY MOUTH THREE TIMES DAILY. 09/28 completed Not Available Not Available Not Available escitalopra m 5 mg tablet TAKE 1 TABLET (5 MG) BY MOUTH EVERY MORNING. active Not Available Not Available No t Available metoprolol tartrate 25 mg tablet TAKE ONE TABLET (25 MG) BY MOUTH TWO TIMES DAILY. active Not Available Not Available No t Available pregabalin 25 mg capsule TAKE 1 CAPSULE (25 MG) BY MOUTH ONCE DAILY. active Not Available Not Available No t Available oxycodone 10 mg tablet TAKE 1 TABLET (10 MG) BY MOUTH FOUR TIMES DAILY. active Not Available Not Available No t Available Dificid 200 mg tablet TAKE ONE TABLET BY MOUTH EVERY 12 HOURS FOR 14 DAYS active Not Available Not Available No t Available Suyapa-ulysses 8.6 mg tablet TAKE ONE TABLET (8.6 MG) BY MOUTH 2 TIMES DAILY IF NEEDED FOR CONSTIPAT ION. active Not Available Not Available No t Available Velphoro 500 mg chewable tablet active Not Available Not Available Not Available Auryxia 210 mg iron tablet TAKE 2 TABLETS BY MOUTH THREE TIMES A DAY WITH MEALS AND 1 TABLET TWICE A DAY WITH SNACKS. SWALLOW WHOLE, DO NOT CHEW OR CRUSH MEDICATIO N active Not Available Not Available No t Available RenaPlex-D 800 mcg-12.5 mg-2,000 unit tablet TAKE 1 TABLET BY MOUTH EVERY DAY WITH THE EVENING MEAL active Not Available Not Available No t Available OneLAX Bisacodyl 10 mg rectal suppository INSERT 1 SUPPOSITO RY (10 MG) RECTALLY ONCE DAILY IF NEEDED FOR CONSTIPAT ION. active Not Available Not Available No t Available Vitals Date Recorded Body height Body mass index (BMI) Body weight Provider Name and Address Organization Details Last Updated DateTime 09/29/2023 165.1 cm 23.8 kg/m2 16604.71 g Juan Francisco Don MD [address] [place] [address], [id number] [place] [address] Urology 09/29/2023 11:26:30 Social History Question Answer Notes LastModified by Organizat ion Details LastModified Time Tobacco Smoking Status Former Smoker Juan Francisco Don MD [address] [place] [address], [id number] 09/29/2023 11:30:13 What Is Your Level Of Alcohol Consumption? None Information not available 09/29/2023 What Is Your Level Of Caffeine Consumption? Occasional [email or web address] Information not available 09/29/2023 When Did You Quit Smoking? 1-5yearssincela josh Information not available 09/29/2023 What Was The Date Of Your Most Recent Tobacco Screening? 09/29/2023 [email or web address] Information not available 09/29/2023 Sex: Unknown Functional Status None recorded. Mental Status None recorded. Family History Relationship Description Onset Age of this Age Resolved Age Notes LastModified by Organization Details LastModified Time Mother Family history of malignant neoplasm [email or web address] Not available 09/28 11:29:42 Mother Family history of diabetes mellitus [email or web address] Not available 09/28 11:29:52 Sister Family history of malignant neoplasm [email or web address] Not available 09/28 11:29:42 Sister Family history of diabetes mellitus Not available 09/28 11:29:52 Medical History Condition Response Sexually Transmitted Infection N Diabetes N Other N Bleeding Disorder N High Blood Pressure N Kidney Stones N High Cholesterol N GERD/Acid Reflux N Heart Disease N Cancer Y Lung Disease N Depression N Past Encounters Encounter ID Performer Location Encounter Start Date Encounter Closed Date Diagnosis/Indication Diagnosis SNOMED-CT Code Diagnosis ICD10 Code Diagnosis Note [id number] Juan Francisco Don MD [facility] [address] [facility] [address] [address] [place] [address] 09/29/2023 11:15:44 10/06/2023 14:11:40 Microscopic hematuria 591138271 R31.29 bladder wall thickening . Health Concerns Section Related Observation LastModified by Organization Detai ls LastModified Time None Recorded Concern Status LastModified by Organization Details LastModified Time None Recorded Advance Directives Directive None Recorded Payers Encounter Date Sequence Insurance Name Policy Number Policy Burleson Covered Member ID Burleson Member ID Guarantor Name 09/29/2023 1 [place] [employer] Vik Thakkar [id number] Vik Thakkar 09/29/2023 2 [place] Vik Thakkar [id number] Vik Thakkar Notes Date Note Type Note Provider Name and Address Organization Details Recorded Time 09/29/2023 text/html New patient is here today for possible bladder wall thickening. . UA Small RBC and >300 protein. 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 makes enough urine for voiding 1x/day. CT showed possible thickening of bladder and atrophic kidneys. CRF from [facility] Juan Francisco Don MD [address] [facility] [facility],[address], [place], [address], [facility] 09/29/2023 11:43:29
--- OUTSIDE RECORDS SUMMARY | 2024-06-08 16:36 | XMS_ITS | Continuity of Care Document ---
Author Organization [facility] Address [address] [facility] [address] [place] [address] Insurance Providers Payer Plan Claims Address Claims Phone Policy Number Group Number Relation Employer Guarantor Name Guarantor Guarantor Address Guarantor Phone Medic are [id number] Miguel Angel FARRAR [address] [place] [address] Medic a Choic e Cherelle [id number] Miguel Angel FARRAR [address] [place] [address] MEDIC ARE ATTN CLAIMS, [address], [facility] [place] [address] tel:[phone] Miguel Angel FARRAR [address] [place] [address] Problems Unknown Problems Results No Results Allergies, adverse reactions, alerts No known allergies and adverse reactions Medications No administered medications reported Vital Signs No vital signs reported Social History No smoking Hx information available Encounters Type CPT Code Date Location Provider Indication s Telephone assessment and management service provided by a qualified nonphysician [id number] 05/04/2023 03:08 PM [facility] [address] [place] [address] [address], [address] Reason: Patient is scheduled for a visit on 05/17/23 with Anna Galvan at [facility], in person for a 5D visit. - Status: Completed Telephone assessment and management service provided by a qualified nonphysician [id number] 03/03/2023 08:17 PM [facility] [address] [facility], [facility] [address], [address] Reason: Retrieving Records f or Coordination of Care (ROM) and care planning of [facility] patient. - Status: Completed
--- OUTSIDE RECORDS SUMMARY | 2024-06-08 16:36 | XMS_ITS | Encounter Summary ---
Author Organization [place] Address [address] [facility] [place] [address] Care Team Providers Care Arrt Technologist Name Role Phone Courtney Guardado MD Primary Care Provider [phone] Gavin Lombardo Primary Care Provi moses Kedar Dang MD Unavailable Rosamaria Garcia PA-C Primary Care Provider [phone] Reason for Visit * Reason Onset Date Comments Appointment 07/19/2017 called and left patient message related to missed appointment for today Encounter Details Date Type Department Care Team (Late st Contact Info) Description 07/19/2017 Telephone [facility] [address] [place] [address] Carla Zambrano RN Appointment (called and left patient message related to missed appointment for today) Social History Tobacco Use Types Packs/Day Years Used Date Smoking Tobacco: Every Day Cigarettes 0.5 27 Smokeless Tobacco: Never Alcohol Use Standard Drinks/Week Comments Yes 0 (1 standard drink = 0.6 oz pur e alcohol) occ. 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 Gender Identity Not on file Sexual Orientation Not on file documented as of this encounter Plan of Treatment Upcoming Encounters Date Type Department Care Team (Late Contact Info) Description 06/19/2024 8:00 AM COMPLIANCE PROJECT MANAGER Hospital Encounter [facility] [address] [place] [address] Hugo Sainz MD [facility] [address] [place] [address] documented as of this encounter Visit Diagnoses Not on filedocumented in this encounter Care Teams Arrt Technologist Relationship Specialty Start Date End Date Courtney Guardado MD PCP - General 03/09/12 07/30/20 Gavin Lombardo PA PCP - General Family Practice 07/31/20 12/14/23 Rosamaria Garcia PA-C [address] [place] [address] PCP - General 12/15/23 [place] [address] [facility] [place] [address] Assigned Gastroenterology Provider 01/29/23 documented as of this encounter
--- OUTSIDE RECORDS SUMMARY | 2024-06-08 16:36 | XMS_ITS | Clinical Summary ---
Author Organization [facility] Address [place], [place] [address] Care Team Providers Care Sales Director Name Role Phone Radha Baires MIXER DIAMOND POWDER Unavailable Unavailable Rosamaria Dunn Unavailable Unavailable Alison Otto OFFICE SERVICE COORDINATOR Unavailable [phone] Christopher Collins MBBS Unavailable [phone] Nik Flores WIND FIELD MANAGER Unavailable [phone] Rosamaria Garcia Primary Care Provider [phone] Allergies Active Allergy Reactions Criticality Noted Date Comments Adhesive Rash Low 01/25/2012 Blood-Group Specific Substance Other - Describe In Comment Field 03/13/2011 Pt has an anti-big E. Blood product orders may be delayed. Please draw one red top and two purple top tubes for all Type and Screen/Red Blood Cell product orders. Hydromorphone (Bulk) Nausea And Vomiting 2016 Hydromorphone-Guaifene sin Nausea And Vomiting 02/07/2012 Lisinopril Angioedema 11/27/2013 Had laryngeal edema, ? Angioedema vs epiglottitis Penicillins *Unknown - Childhood Rxn 04/18/2006 As a child Medications RenaPlex-D 800 mcg-12.5 mg -2,000 unit tab Take 1 Tablet by mouth once daily in the evening. 06/11/19 22 Active Auryxia 210 mg iron tab Take 420 mg by mouth three times daily with meals. 08/30/19 22 Active ferric citrate (Auryxia) 210 mg iron tab Take 210 mg by mouth 2 times daily if needed (with snacks). Active polyethylene glycol (Miralax) 17 g per packet packet Mix 17 g in liquid then take by mouth once daily if needed for Constipation. Active aspirin (ECOTRIN) 81 mg enteric coated tabletIndications :Chronic ischemic heart disease, unspecified Take 1 Tablet (81 mg) by mouth once daily with a meal. 0 12/18/19 23 Active bisacodyL (DULCOLAX) 10 mg suppositoryIndica tions:Constipatio n due to opioid therapy Insert 1 Suppository (10 mg) rectally once daily if needed for Constipation. 8 Suppository 3 12/21/19 23 Active famotidine (PEPCID) 20 mg tabletIndications :Abdominal pain, unspecified abdominal location Take 1 Tablet (20 mg) by mouth two times daily. 180 Tablet 3 12/21/19 23 Active lidocaine 5 % topical patchIndications: Thoracic myofascial strain, initial encounter Apply on dry, clean, hairless skin. Apply 1 patch to painful area of skin for up to to 12 hours within 24 hour period. 30 Patch 11 01/07/20 23 Active sennosides (Suyapa-ulysses) 8.6 mg tabletIndications :Constipation, acute Take 1 Tablet (8.6 mg) by mouth 2 times daily if needed for Constipation. 60 Tablet 3 03/31/20 23 Active aluminum chloride (Drysol) 20 % external solutionIndicatio ns:Hyperhidrosis Apply topically to affected area(s) at bedtime. Use up to 2-3 times a week 50 mL 2 09/13/19 24 Active methocarbamoL (ROBAXIN) 750 mg tabletIndications :S/P arthroscopy of right shoulder Take 1 Tablet (750 mg) by mouth every 6 hours if needed for Muscle Spasm. 30 Tablet 10/27/19 24 Active ondansetron (ZOFRAN) 4 mg tabletIndications :S/P arthroscopy of right shoulder Take 1 Tablet (4 mg) by mouth every 8 hours if needed for Nausea/Vomitin g. 20 Tablet 4 9:13 AM CDT 10/27/19 24 Active durable medical equipment (DME)Indications: Peripheral polyneuropathy,Chitra mbar foraminal stenosis,ESRD on hemodialysis (HC),Spinal stenosis of lumbar region without neurogenic claudication Electric bicycle to commute 1 Each 12/22/19 24 Active amLODIPine (NORVASC) 10 mg tabletIndications :Hypertension TAKE ONE TABLET (10 MG) BY MOUTH ONCE DAILY. 90 Tablet 3 02/28/20 24 Active metoprolol tartrate (LOPRESSOR) 25 mg tabletIndications :Hypertension TAKE ONE TABLET (25 MG) BY MOUTH TWO TIMES DAILY. 180 Tablet 3 02/28/20 24 Active nortriptyline (PAMELOR) 10 mg capsuleIndication s:Gastroparesis Take 2 Capsules (20 mg) by mouth at bedtime. 180 Capsule 3 02/28/20 24 Active ondansetron (ZOFRAN ODT) 8 mg disintegrating tabletIndications :Nausea and vomiting, unspecified vomiting type Place 1 Tablet (8 mg) on the tongue every 8 hours if needed for Nausea/Vomitin g. 30 Tablet 2 03/01/20 24 Active metoclopramide (REGLAN) 5 mg tabletIndications :Gastroparesis Take 2.5 mg up to 2 times a day before meals if needed for severe abdominal pain/nausea/vo miting 30 Tablet 1 03/01/20 24 Active atorvastatin (LIPITOR) 40 mg tabletIndications :Other hyperlipidemia TAKE ONE TABLET (40 MG) BY MOUTH AT BEDTIME. 90 Tablet 2 03/23/20 24 Active tiZANidine (ZANAFLEX) 2 mg tabletIndications :Muscle spasm TAKE 1 TABLET UP TO 2 TIMES DAILY IF NEEDED FOR MUSCLE SPASM 60 Tablet 2 03/26/20 24 Active escitalopram oxalate (LEXAPRO) 5 mg tabletIndications :CHIQUIS (generalized anxiety disorder) Take 1 Tablet (5 mg) by mouth once daily in the morning. 90 Tablet 3 04/17/20 24 Active dicyclomine (BENTYL) 20 mg tabletIndications :Irritable bowel syndrome with both constipation and diarrhea Take 1 tablet up to 2 times a day for IBS cramping/pain 60 Tablet 2 05/31/19 25 Active oxyCODONE 10 mg tabletIndications :Controlled substance agreement signed,Lumbar foraminal stenosis,Chronic pain of both shoulders,Chronic thoracic back pain, unspecified back pain laterality Take 1.5 Tablets (15 mg) by mouth four times daily. 180 Tablet 06/03/19 25 Active diclofenac topical (VOLTAREN) 1 % gelIndications:Bi lateral hand pain Apply 2 g up to bid for hand pain 450 g 2 06/04/19 25 Active dicyclomine (BENTYL) 20 mg tabletIndications :Irritable bowel syndrome with both constipation and diarrhea Take 1 tablet up to 2 times a day for IBS cramping/pain 60 Tablet 2 08/23/19 24 025 Disconti nued(Reo rder (E-cance l not sent)) oxyCODONE 10 mg tabletIndications :Controlled substance agreement signed,Lumbar foraminal stenosis,Chronic pain of both shoulders,Chronic thoracic back pain, unspecified back pain laterality Take 1.5 Tablets (15 mg) by mouth four times daily. 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 Arroyo 11/14/2023 Right shoulder pain 06/28/2023 Controlled substance agreement signed 05/11/2023 Claudication of both lower extremities Depression, recurrent 09/13/2022 Degeneration of cervical intervertebral disc Overview (11/14/2022): CT SCAN 03.05.2022 Bones: Degenerative disc disease and osteoarthritis of the hips. No blastic or lytic lesion. Degenerative arthrosis left greater than right sacroiliac joints. Last Assessment & Plan: Stable Referred for further evaluation with MRI Reports upper back pain that is controlled with resting and oxycodone. Plan: Scheduling for MRI and follow up with orthopedic as recommended. Continue therapy for pain control and perform physical activities as tolerated. Type 2 diabetes mellitus with chronic kidney dis ease 07/22/2022 Overview (11/14/2022): Last Assessment & Plan: DIABETES Well controlled Denies dizziness, polyphagia, polydipsia, Last A1c: 4.4 Manage with low carb diet On aspirin and statin therapy Wounds: n/a Plan: - Continue therapy -encouraged physical activities as tolerated -Recommended plan: yearly dilated eye exam, yearly podiatry exam, A1c q3-12months. Secondary hyperparathyroidism of renal origin Cannabis dependence, uncomplicated 09/17/2021 History of colon cancer, stage III 10/06/2020 ESRD on hemodialysis 08/17/2020 CHIQUIS (generalized anxiety disorder) 08/17/2020 GERD (gastroesophageal reflux disease) Chronic thoracic back pain 08/07/2019 Peripheral polyneuropathy 11/29/2018 Chronic pain of both shoulders 11/29/2018 Lumbar foraminal stenosis 11/29/2018 Spinal stenosis of lumbar re gion without neurogenic claudication 11/29/2018 Vitamin B deficiency, unspecified 05/17/2018 Recurrent Clostridium difficile diarrhea 018 Hypertension 07/08/2009 Other and unspecified hyperlipidemia 04/18/2006 Resolved Problems Problem Noted Date Diagnosed Date Resolved Date Prostate cancer screening 08/23/2023 C. difficile colitis 12/14/2022 024 Acquired absence of intestine 07/22/2022 05/11/2023 Overview (11/14/2022): Last Assessment & Plan: Reports hx of partial colectomy Stable Reports occasional abdominal pain Denies constipation Schedule for colonoscopy 08/17/2022 Continue to monitor Onychomycosis of toenail 07/22/202201/2024 Overview (11/14/2022): Last Assessment & Plan: Bilateral great toe Stable Encouraged microfilm clerk consult and patient agree Type 2 diabetes mellitus wit h diabetic polyneuropathy 07/22/2022 05/11/2023 Overview (11/14/2022): Last Assessment & Plan: Stable Continue monitor Encouraged physical activities as tolerated. Type 2 diabetes mellitus wit h chronic kidney disease, without long-term current use of insulin, unspecified CKD stage 05/10/2022 Diarrhea 11/25/2021 05/11/2023 Abdominal pain 11/25/2021 05/11/2023 Enteritis 07/23/2021 05/11/2023 Macrocytic anemia 07/23/2021 05/11/2023 Hyperkalemia 07/23/2021 05/11/2023 Anxiety and depression 08/17/202005/11 Hematemesis 08/11/2020 05/11/2023 History of COVID-19 06/06/2020 05/11/19 Overview (06/06/2020): 03/05/20 and 06/02/20 HTN (hypertension) 05/13/2020 Chronic constipation 05/13/2020 024 Hyperkalemia 05/06/2020 05/11/2023 COVID-19 05/06/2020 09/17/2021 Acute renal failure (ARF) 05/06/2020 Acute pancreatitis 08/23/2019 2 Hyperkalemia 08/23/2019 06/02/2020 Schmorl's nodes 07/13/2019 05/11/2023 Lumbar spondylolysis 07/13/2019 020 Chronic bilateral low back p ain without sciatica 11/29/2018 05/11/2023 Chronic abdominal pain 11/29/201805/11 Dialysis patient 11/06/2018 08/23/2019 Depression 11/01/2018 08/23/2019 Acute abdominal pain 11/01/2018 020 Hyperkalemia 11/01/2018 08/23/2019 Bilateral hip pain 09/18/2018 4 Acute low back pain 09/14/2018 08/23/19 20 Fever 09/14/2018 10/03/2018 Anxiety about health 06/20/2018 020 Chronic ischemic heart disease, unspecified 05/17/2018 10/24/2023 C. difficile colitis 05/05/2018 020 Perianal abscess 10/10/2017 08/23/2019 Abscess, perianal 08/05/2017 01/09/2018 End-stage renal disease 08/04/201712/31 Clostridium difficile diarrhea 06/25/2017 01/09/2018 Enterocolitis 06/25/2017 01/09/2018 Nausea and vomiting 06/22/2017 09/15/19 18 Spondylosis of lumbar region without myelopathy or radiculopathy 06/16/2017 05/11/2023 Lumbosacral spondylosis without myelopathy 06/16/2017 01/09/2018 Colon cancer 05/04/2017 05/10/2017 Chest pain, musculoskeletal 05/04/2017 08/23/2019 Diet-controlled type 2 diabetes mellitus 05/04/2017 05/11/2023 Diabetes mellitus, type 2 05/04/2017 Opioid dependence 11/19/2016 02/02/2017 Malignant neoplasm of sigmoid colon 10/22/2016 05/11/2023 Elevated pancreatic enzyme 10/20/2016 0 08/23/2019 Hematochezia 10/20/2016 09/14/2017 Colitis 10/20/2016 09/14/2017 External hemorrhoid 10/20/2016 01/10/20 18 Abnormal levels of other serum enzymes 10/20/2016 01/09/2018 Hematochezia 10/20/2016 01/09/2018 Generalized abdominal pain 04/21/2016 1 06/30/2015 Elevated lipase 04/21/2016 04/29/2016 Acute pancreatitis 04/21/2016 6 Anxiety 04/05/2016 10/20/2016 Family history of malignant neoplasm of colon 02/26/20 16 05/11/2023 C. difficile colitis 09/28/2015 017 Abdominal pain 09/26/2015 04/29/2016 Pancolitis 09/26/2015 10/20/2016 Pain medication agreement broken 06/19/2015 05/11/2023 Overview (06/19/2015): no further narcotics. Courtney Guardado MD 2012 with Kathryn: broken agreement Presents to various ERs with complaint of abdominal pain/back pain/leg pain: I would recommend no narcotics. Hyperkalemia 04/16/2015 06/19/2015 Problem with dialysis access 04/16/2015 06/19/2015 Pilonidal cyst with abscess 01/20/2015 10/20/2016 Suicidal ideation 01/17/2015 02/11/2015 Dysplastic colon polyp 04/09/201410/20 Overview (04/09/2014): MNGI: family history of colon cancer Chronic pain 11/28/2013 05/11/2023 Epiglottitis 11/26/2013 12/13/2013 End stage renal disease 11/21/201305/02 Overview (11/14/2022): Last Assessment & Plan: ESRD Stable Dialysis at: [facility] on: MWF via fistula Diet: Renal, fluid restriction Meds: see med list LABS: Cr 11.38, BUN 39, Na 140, K 5.5, Albumin 3.9, Mg 3.3, PTH 913 Wound: n/a Fistula/avc graft status: thrill and bruit, patent. Reports occasional nausea and tiredness after dialysis. Denies headaches, dizziness, dyspnea, or lost of appetite. Patient reports he doesn't know if he is cleared to get a referral for transplant. Luh PATEL is working with patient to get the information from Andrea. Plan Continue therapy Continue follow up AMANDA regarding transplant process Blood in stool 08/09/2013 12/13/2013 Macrocytic anemia 07/31/2013 05/11/2023 Overview (08/17/2013): B12 and Folate levels nl 07/2013 Anemia associated with nutritional deficiency 08/01/19 14 05/11/2023 Overview (09/21/2017): Overview: Overview: B12 and Folate levels nl 07/2013 Pain in joint, lower leg 08/28/201201/2024 Overview (08/28/2012): chronic: normal PAULINE 2012 Pain, knee 08/28/2012 01/09/2018 Overview (09/21/2017): Overview: Overview: chronic: normal PAULINE 2012 Anemia in chronic kidney disease 06/26/2012 05/11/2023 Overview (11/14/2022): Last Assessment & Plan: Stable Hgb 12.4 Target Hgb level 10 - 11 for ESRD patient. Continue to monitor. Major depressive disorder, s huy episode, severe, without mention of psychotic behavior 01/16/2012 06/20/2018 Generalized anxiety disorder 01/16/2012 05/11/2023 Major depressive disorder, s huy episode, severe without psychotic features 01/16/20122020 Pain medication agreement 11/08/2011 Overview (05/04/2012): Rotator cuff tendinopathy; taking 3-4 percocet per day. Knee pain, early OA. Failed urine screen, I am no longer prescribing narcotics for him. Offered tramadol, refused, offered pain clinic, refused. Arthur Peralta MD .................... 05/04/2012 10:40 AM Dialysis patient / ESRD 06/08/201105/03 Overview (08/16/2013): Dialysis M, W, F with Dr. Brown in [place]. Dependence on renal dialysis 06/08/2011 08/23/2019 Overview (09/21/2017): Overview: Overview: Dialysis M, W, F with Dr. Brown in [place]. ACP (advance care planning) 03/14/2011 05/11/2023 Overview (03/14/2011): Patient has identified Health Care Agent(s): Patient verbally identifies his significant other as health care decision maker however, she does not have a phone number at present. To contact Patient's family/SO contact can be made with Abhay Tovar (brother in law) [phone] and Thomas Carty [phone] Friend Patient has Advance Care Plan Documents (Health Care Directive, POLST): No, Health Care Packet given to patient. Patient has identified Specific Treatment Preferences: No Specific limits to treatment preferences NOT identified: ASSUME FULL TREATMENT. HTN (hypertension), malignant 03/12/2011 10/20/2016 Overview (06/08/2011): resolved with dialysis CKD (chronic kidney disease) stage 4, GFR 15-29 ml/min 09/11/2009 06/08/2011 Hyperkalemia 09/11/2009 11/28/2013 Tobacco abuse 09/11/2009 06/08/2011 MRSA (methicillin resistant Staphylococcus aureus) infection 07/08/2009 10/20/2016 Overview (03/12/2014): cleared: three negative nasopharyngeal swabs fall 2013 Chronic renal insufficiency, stage IV (severe) 07/08/2009 09/11/2009 Marijuana abuse 07/08/2009 05/11/2023 Misuse of drugs 07/08/2009 06/19/2015 Overview (03/15/2013): see Kathryn's note below Type 2 diabetes, uncontrolle d, with renal manifestation 07/08/2009 10/20/2016 Overview (09/17/2011): A1C below 7 Chronic renal insufficiency, stage IV (severe) 07/08/2009 02/11/2015 Overview (03/20/2014): cleared 2013 Cannabis abuse 07/08/2009 01/09/2018 End stage renal disease due to hypertension 07/08/2009 01/09/2018 Infection with microorganism s resistant to penicillins 03/05/2007 04/13/2012 Overview (03/05/2007): fall 2006, sensitive to septra and cipro. INFECT W/DRUG RESISTANCE TO PENICILLINS 03/05/2007 08/23/2019 Overview (01/27/2017): fall 2006, sensitive to septra and cipro. DIABETES TYPE II WITHOUT COM PLICATIONS OR UNSPECIFIED 09/30/1993 07/08/2009 Acute postoperative pain 11/2016 Acute postoperative abdominal pain 01/07/2017 ESRD (end stage renal disease) 08/17/2020 Anemia 02/07/2018 Colon cancer screening 05/04 Other chest pain 05/04/2017 Hypoglycemia 10/03/2018 Panic attack 05/11/2023 Encounters Date Type Department Care Team Description 06/04/2024 8:50 AM LABOR RELATIONS OR PERSONNEL NEGOTIATOR Office Visit [facility] [address] [place] [address] Rosamaria Garcia PA Hand Pain/problem (Bilateral hand and foot pain-arthritis pain) 06/04/2024 Travel 05/31/[address] [facility] [address] [place] [address] Rosamaria Garcia PA Refill Request (oxyCODONE 10 mg tablet) 05/30/[address] [facility] [address] [place] [address] Rosamaria Garcia PA Refill Request (Dicyclomine) 05/30/[address] [facility] [address] [place] [address] Rosamaria Garcia PA Medication Management (dicyclomine (BENTYL) 20 mg tablet) 05/30/[address] [facility] [address] [place] [address] Rosamaria Garcia PA Results 05/29/2024 2:50 PM LABOR RELATIONS OR PERSONNEL NEGOTIATOR Office Visit [facility] [address] [place] [address] Rosamaria Garcia PA Preoperative Exam (Dr. Florencia Young-cystoscopy) 05/29/2024 Travel 05/25/2024 Travel 05/21/[address] [facility] [address] [place] [address] Rosamaria Garcia PA Error-please disregard 05/21/[address] [facility] [address] [place] [address] Rosamaria Garcia PA Musculoskeletal Problem 05/01/[address] [facility] [address] [place] [address] Rosamaria Garcia PA Refill Request (oxycodone) 04/20/[address] [facility] [address] [place] [address] Rosamaria Garcia PA Results 04/17/2024 9:50 AM LABOR RELATIONS OR PERSONNEL NEGOTIATOR Office Visit [facility] [address] [place] [address] Rosamaria Garcia PA Follow Up (Needs a new referral for urology to get scope done) 04/17/2024 Travel 04/05/[address] [facility] [address] [place] [address] Rosamaria Garcia PA Form 04/03/2024 9:00 AM LABOR RELATIONS OR PERSONNEL NEGOTIATOR Office Visit [facility] [address] [place] [id number] Latoya Thompson, OD Eye Exam (Diabetic) 04/03/[address] [facility] [address] [place] [address] Rosamaria Garcia PA Abstract (Form) 04/03/[address] [facility] [address] [place] [address] Rosamaria Garcia PA Refill Request (oxyCODONE 10 mg tablet ) 04/03/2024 Travel 03/20/[address] [facility] [address] [place] [address] Rosamaria Garcia PA Refill Request (Atorvastatin, Tizanidine) from Last 3 Months Immunizations Name Administration Dates Next Due COVID-19 vaccine (Moderna 100mcg/0.5mL) PF, MDV 06/23/2020,05/30/2020 Hepatitis B (Adult) 09/17/2021,04/03/2021,2020 Influenza RIV4 (Age 18+ Year s) PRESERV FREE 03/17/2020 Influenza Virus, Unspecified 02/05/2022,01/24/20 12 Influenza, IIV3 (Age 6-35 mos) 03/15/2011 Influenza, IIV3 (Age >=3 years) 01/30/2013,01/23,03/15/2011 Influenza, IIV4 02/23/2023,,01/16/2020,2018,02/13/2017,02/09/2016,01/21/2015 Influenza, RIV3 (Age =>18 Years) 02/15/2024 Pneumococcal Poly,23-Valent (Pneumovax) 06/13/2019,03/17/2011 Pneumococcal conj 13-Valent (Prevnar 13) 05/26/2018 Tdap 10/28/2011 Family History Medical History Relation Name Comments Heart attack Brother 1 Diabetes Brother 3 Alcohol/Drug Brother 4 Cancer Father lung cancer Heart Disease Father Cancer-colon Mother 54 yo Diabetes Other FAMILY H/O Cancer-colon Sister 2 46 yo Anesthesia Problem No Family History Relation Name Status Comments Brother 1 Alive x5 Brother 2 (Age 54) Brother 3 Brother 4 Father Maternal Grandfather Maternal Grandmother Mother Other Paternal Grandfather Paternal Grandmother Sister 1 Sister 2 Social History Tobacco Use Types Packs/Day Years Used Date Smoking Tobacco: Former Cigarettes 0.3 30 0 10/30/1980 - 10/30/2010 Smokeless Tobacco: Never Tobacco Cessation:Counseling Given: Not Answered Comments:TIP done 05/09/18 (seen x2 w/ previous hospitalizations). Alcohol Use Standard Drinks/Week Comments No 0 (1 standard drink = 0.6 oz pure alcohol) Stopped with GI issues 01/2012, started again but quit in mid 2019 PHQ-2 Answer Date Recorded PHQ-2 TOTAL SCORE 0 08/23/2023 Social Connections Answer Date Recorded Do you often feel lonely or isolated from those around you? 0 09/13/2023 Financial Resource Strain Answer Date R ecorded Difficulty of Paying Living Expenses 3 09/13/2023 Difficulty of Paying Living Expenses Not on file 09/13/2023 Food Insecurity Answer Date Recorded Do you worry your food will run out before you are able to buy more? 1 09/13/2023 Transportation Needs Answer Date Record ed Does lack of transportation keep you from medica l appointments? 1 09/13/2023 Does lack of transportation keep you from work, meetings or getting things that you need? 1 09/13/2023 Housing Stability Answer Date Recorded What is your housing situation today? 1 09/13/2023 Utilities Answer Date Recorded Do you have trouble paying f or utilities (for example, heat, electricity, water, phone)? 1 09/13/2023 Sex and Gender Information Value Date Recorded Sex Assigned at Not on file Legal Sex Male 5:23 AM LABOR RELATIONS OR PERSONNEL NEGOTIATOR Gender Identity Not on file Sexual Orientation Not on file Occupation Industry Job Start Date Job End Date [employer] Not on file Not on file Not on file Obstetrics History Last Filed Vital Signs Vital Sign Reading Time Taken Comments Blood Pressure 183/86 06/04/2024 8:54 AM LABOR RELATIONS OR PERSONNEL NEGOTIATOR Pulse 66 06/04/2024 8:54 AM LABOR RELATIONS OR PERSONNEL NEGOTIATOR Temperature 36.2 C (97.2 F) 10/27/2023 3:42 PM CDT Respiratory Rate 16 10/27/2023 4:00 PM CDT Oxygen Saturation 100% 06/04/2024 8:54 AM LABOR RELATIONS OR PERSONNEL NEGOTIATOR Inhaled Oxygen Concentration - - Weight 60.3 kg (133 lb) 06/04/2024 8:54 AM LABOR RELATIONS OR PERSONNEL NEGOTIATOR Height 166 cm (5' 5.35) 05/29/2024 2:47 PM LABOR RELATIONS OR PERSONNEL NEGOTIATOR Body Mass Index 21.89 05/29/2024 2:47 PM LABOR RELATIONS OR PERSONNEL NEGOTIATOR Plan of Treatment Upcoming Encounters Date Type Department Care Team (Late st Contact Info) Description 07/03/2024 11:50 AM LABOR RELATIONS OR PERSONNEL NEGOTIATOR Office Visit [facility] [address] [facility] [address] [place] [address] [place] [address] [place] [address] [place], [place] [id number] Health Maintenance Due Date Last Done Comments Zoster (shingles) series for age 50+ (1 of 2) 2021 Tetanus booster 10/27/2021 10/28/2011 Hepatitis B series for Diabe teri (4 of 4 - Risk Dialysis Recombivax 3-dose series) 09/17/2022 09/17/2021, 04/03/2021, 07/11/2020 COVID-19 vaccine series ( - season) 2024 06/23/2020, 05/30/2020 Pneumococcal series for age 50+ (4 of 4 - PCV20 or PCV21) 06/13/2024 06/13/2019, 05/26/2018, 03/17/2011 Depression screening for age 12+ 08/29/2024 08/30/2023, 08/24/2023, 08/23/2023, Additional history exists BMI (ht and wt on same day) for age 18+ 05/29/2025 05/29/2024, 10/21/2023, 09/12/2023, Additional history exists Lipids for age 45-75 04/17/2029 04/17/2024, 08/24/2023, 10/01/2022, Additional history exists Colonoscopy through age 75 12/15/203212/15, 02/04/2017, 10/25/2016, Additional history exists Tdap Completed 10/28/2011 Hepatitis C screening for ag e 18-79 Completed 12/26/2021 HIV for age 15-65 Completed 10/01/2022 Influenza for age 50-64 Completed 02/15/20, 02/23/2023, 02/05/2022, Additional history exists Goals Goal Patient Goal Type Associated Problems Recent Progress Patient-Stated? Author BLOOD PRESSURE - MAINTAINS BP less than 140/90 Blood Pressure No Juan Francisco Card MD Medical Devices Implanted Type Area Corporate Event Planner Device Identifier Shelf Expiration Date Model / Serial / Lot Graft Vasc 8mm 40cm Propaten Thin Wall - [id number] Implanted:Qty: 1 on 04/10/2015 by Ash Zambrano MD at [facility] Left: Arm [employer] 10/23/2018 [id number] # / / Power Port Isp Mri 6fr [id number] - Stan Only - [id number] Implanted:Qty: 1 on 01/27/2017 by Kiet Hernandez DO at [facility] N/A: Chest [employer] 03/01/2018 [id number] / / [id number] Description:PowerPort isp M. R.I. Implantable Port Sys Ancr Sut 4.75mm Biocomposite - [id number] Implanted:Qty: 1 on 10/27/2023 by Milind Arroyo MD at [facility] Right: Shoulder [employer] 06/30/2027 [id number] CSL / / [id number] Procedures Procedure Name Priority Date/Time Associated Diagnosis Comments CBC WITH AUTO DIFFERENTIAL Routine 05/29/2024 3:28 PM LABOR RELATIONS OR PERSONNEL NEGOTIATOR Pre-op exam LIPID PANEL W REFLEX MEASURED LDL Routine 04/17/2024 10:16 AM LABOR RELATIONS OR PERSONNEL NEGOTIATOR Type 2 diabetes mellitus with chronic kidney disease on chronic dialysis, without long-term current use of insulin (HC) HEMOGLOBIN A1C Routine 04/17/2024 10:16 AM LABOR RELATIONS OR PERSONNEL NEGOTIATOR Type 2 diabetes mellitus with chronic kidney disease on chronic dialysis, without long-term current use of insulin (HC) COLONOSCOPY 12/15/2022 3:12 PM CDT LC HIV-1/O/2, 4TH GENERATION Routine 10/01/2022 3:44 PM CDT Screening for HIV (human immunodeficiency virus) ANTI HCV Today 12/26/2021 5:58 AM CDT Need for hepatitis C screening test from Last 3 Months or Most Recently Relevant to Health Maintenance Results * (ABNORMAL) CBC AND DIFFERENTIAL (05/29/2024 3:28 PM LABOR RELATIONS OR PERSONNEL NEGOTIATOR) WHITE BLOOD CELL COUNT 7.6 3.8 - 10.8 Thousand/u L [facility] RED BLOOD CELL COUNT 3.44(L) 4.20 - 5.80 Million/uL [facility] HEMOGLOBIN 10.7(L) 13.2 - 17.1 g/dL [facility] HEMATOCRIT 33.4(L) 38.5 - 50.0 % [facility] MCV 97.1 80.0 - 100.0 fL [facility] MCH 31.1 27.0 - 33.0 pg [facility] MCHC 32.0 32.0 - 36.0 g/dL [facility] Comment: For adults, a slight decrease in the calculated MCHC value (in the range of 30 to 32 g/dL) is most likely not clinically significant; however, it should be interpreted with caution in correlation with other red cell parameters and the patient's clinical condition. RDW 16.0(H) 11.0 - 15.0 % [facility] PLATELET COUNT 170 140 - 400 Thousand/u L [facility] MPV 10.5 7.5 - 12.5 fL [facility] ABSOLUTE NEUTROPHILS 5,305 1,500 - 7,800 cells/uL [facility] ABSOLUTE LYMPHOCYTES 1,360 850 - 3,900 cells/uL [facility] ABSOLUTE MONOCYTES 714 200 - 950 cells/uL [facility] ABSOLUTE EOSINOPHILS 182 15 - 500 cells/uL [facility] ABSOLUTE BASOPHILS 38 0 - 200 cells/uL [facility] NEUTROPHILS 69.8 % [facility] LYMPHOCYTES 17.9 % [facility] MONOCYTES 9.4 % [facility] EOSINOPHILS 2.4 % [facility] BASOPHILS 0.5 % [facility] Blood BLOOD SPECIMEN / Unknown 05/29/2024 3:28 PM LABOR RELATIONS OR PERSONNEL NEGOTIATOR 05/29/2024 3:29 PM LABOR RELATIONS OR PERSONNEL NEGOTIATOR us Rosamaria OBRIEN HEMATOLOGY Final Resu lt [facility] [address] [place] [address], [facility] [address] [place] [address] * HEMOGLOBIN A1C (04/17/2024 10:16 AM LABOR RELATIONS OR PERSONNEL NEGOTIATOR) HEMOGLOBIN A1C 4.9 <5.7 % of total Hgb [facility] Comment: For the purpose of screening for the presence of diabetes: <5.7% Consistent with the absence of diabetes 5.7-6.4% Consistent with increased risk for diabetes (prediabetes) > or =6.5% Consistent with diabetes This assay result is consistent with a decreased risk of diabetes. Currently, no consensus exists regarding use of hemoglobin A1c for diagnosis of diabetes in children. According to [place] Diabetes Association (ADA) guidelines, hemoglobin A1c <7.0% represents optimal control in non- diabetic patients. Different metrics may apply to specific patient populations. Standards of Medical Care in Diabetes(ADA). Blood BLOOD SPECIMEN / Unknown 04/17/2024 10:16 AM LABOR RELATIONS OR PERSONNEL NEGOTIATOR 04/17/2024 10:16 AM LABOR RELATIONS OR PERSONNEL NEGOTIATOR us Rosamaria OBRIEN CHEMISTRY Final Resu lt [facility] [employer] [facility] [address] [place] [address], [facility] [address] [place] [address] * LIPID PANEL W REFLEX MEASURED LDL (04/17/2024 10:16 AM LABOR RELATIONS OR PERSONNEL NEGOTIATOR) [facility] CHOLESTEROL, TOTAL 145 <200 mg/dL [facility] HDL CHOLESTEROL 64 > OR = 40 mg/dL [facility] TRIGLYCERIDES 71 <150 mg/dL [facility] LDL-CHOLESTEROL 66 mg/dL (calc) [facility] Comment: Reference range: <100 Desirable range <100 mg/dL for primary prevention; <70 mg/dL for patients with CHD or diabetic patients with > or = 2 CHD risk factors. LDL-C is now calculated using the Parrish-Rahul calculation, which is a validated novel method providing better accuracy than the Friedewald equation in the estimation of LDL-C. Parrish CUELLAR et al. JULIEN. 2013;310(19): 6799-3520 (http://education.[employer]/faq/TYU140) CHOL/HDLC RATIO 2.3 <5.0 (calc) [facility] NON HDL CHOLESTEROL 81 <130 mg/dL (calc) [facility] Comment: For patients with diabetes plus 1 major ASCVD risk factor, treating to a non-HDL-C goal of <100 mg/dL (LDL-C of <70 mg/dL) is considered a therapeutic option. Blood BLOOD SPECIMEN / Unknown 04/17/2024 10:16 AM LABOR RELATIONS OR PERSONNEL NEGOTIATOR 04/17/2024 10:16 AM LABOR RELATIONS OR PERSONNEL NEGOTIATOR Rosamaria OBRIEN CHEMISTRY Final Resu lt [employer] [facility] [address] [place] [address], [facility] [address] [place] [address] * COLONOSCOPY (12/15/2022 3:12 PM CDT) 12/15/2022 3:12 PM CDT Narrative Transcriptions Arthur Sánchez MD - 12/15/2022 4:16 PM CDT Procedural Care Center Patient Name: Vik Thakkar Procedure Date: 12/15/2022 Gender: Male Date of : 1970 Admit Type: Outpatient Procedure: Colonoscopy Proceduralist: Arthur Sánchez MD - [facility] Indications/Pre-Op Diagnosis: High risk colon cancer surveillance:Personal history of colon cancer Medications: Monitored Anesthesia Care Procedure Description: The patient had risks, benefits and alternatives explained to andgave informed consent. The patient had a stable cardiopulmonary status and judged an adequate candidate for conscious sedation. The endoscope [id number] was passed through the anus andadvanced to the cecum, identified by appendiceal orifice and ileocecal valve.The colonoscopy was performed without difficulty. The patient toleratedthe procedure well. The quality of the bowel preparation was good. Scope Withdrawal Time 0 hours 26 minutes 52 seconds Complications: No immediate complications. Estimated Blood Loss & Specimen: Estimated blood loss was minimal. Specimen collected: Yes and sent to Laboratory Findings: Two sessile polyps were found in the ascending colon. The polyps were6 to 8 mm in size. These polyps were removed with a hot snare.Resection and retrieval were complete. Three semi-pedunculated polyps were found in the transverse colon.The polyps were 5 to 8 mm in size. These polyps were removed with a hot snare. Resection and retrieval were complete. Four semi-pedunculated polyps were found in the descending colon. The polyps were 4 to 8 mm in size. These polyps were removed with a hot snare. Resection and retrieval were complete. A 7 mm polyp was found in the sigmoid colon. The polyp was semi-pedunculated. The polyp was removed with a hot snare. Resectionand retrieval were complete. Impressions/Post-Op Diagnosis: - Two 6 to 8 mm polyps in the ascending colon, removed with a hotsnare. Resected and retrieved. - Three 5 to 8 mm polyps in the transverse colon, removed with a hot snare. Resected and retrieved. - Four 4 to 8 mm polyps in the descending colon, removed with a hot snare. Resected and retrieved. - One 7 mm polyp in the sigmoid colon, removed with a hot snare. Resected and retrieved. - Personal history of colorectal cancer Recommendation: - Await pathology results. Arthur Sánchez MD 12/15/2022 4:16:14 PM This report has been signed electronically. Note Initiated On: 12/15/2022 3:12 PM us Arthur Sánchez MD PROCEDURE ORD Final Res ult * LC HIV-1/O/2, 4TH GENERATION (10/01/2022 3:44 PM CDT) HIV Scr 4th Gen Non Reactive Non Reactive 10/05/2022 1:09 PM CDT [facility]) Comment: HIV Negative HIV-1/HIV-2 antibodies and HIV-1 p24 antigen were NOT detected. There is no laboratory evidence of HIV infection. Blood BLOOD SPECIMEN / Unknown Venipuncture / Unknown 10/01/2022 3:44 PM CDT 10/01/2022 3:46 PM CDT Narrative [facility] ([facility]) - 10/05/2022 1:09 PM CDT Performed at: [address] [place] [address] [facility] [place] [phone] Support Service Tech: Sudheer Yanez MD, Phone: [phone] Gavin OBRIEN LABORATORY Fin al Result [facility] ([facility]) [address] [place] [id number] * ANTI HCV (12/26/2021 5:58 AM CDT) Pathologist [facility] HEPATITIS C ANTIBODY Non-React fuentes Non-React fuentes 12/28/2021 5:08 PM CDT [facility] Comment:Antibodies to HCV no t detected; does not exclude the possibility of exposure to HCV. Blood BLOOD SPECIMEN / Unknown Venipuncture / Unknown 12/26/2021 5:58 AM CDT 12/26/2021 6:33 AM CDT Gavin OBRIEN SEND OUTS Fin al Result [facility] 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 Do not delete or deactivate the FY 07/08/2015 07/08/2015 C diff History Comment:+ C diff test 11/17/18. Enteric Precautions not required on subsequent admissions provided: 1) >3 weeks since positive C diff test; 2) diarrhea resolved; and 3) patient has completed CDI antibiotics (excluding vanco taper). C diff testing not required on subsequent admissions unless patient is presenting with C diff symptoms CDI + 09/14/17 + recurrent episodes 06/02/2020 06/02/2020 Insurance MEDICARE PART A HB ONLY MEDICARE PB ONLY MEDICARE PART B HB ONLY MEDICA ACCESSABILITY SOLUTION KIDNEY ACQUISITION [facility] HB ONLY KIDNEY ACQUISITION CTR PB ONLY [id number] [facility] [place] [id number] Advance Directives * Full Code (Latest Code Status on File) Date Activated Date Inactivated Comments 10/27/2023 10:04 AM 10/27/2023 7:08 PM Question Answer Comments Code Status Discussion: Unable to Assess Preferences, Provider to review later * Full Code Date Activated Date Inactivated Comments 12/15/2022 12:15 PM 12/15/2022 7:56 PM Question Answer Comments Code Status Discussion: Reviewed Preferences * Full Code Date Activated Date Inactivated Comments 12/14/2022 9:58 AM 12/15/2022 12:15 PM Question Answer Comments Code Status Discussion: Unable to Assess Preferences, Provider to review later * Full Code Date Activated Date Inactivated Comments 12/25/2021 3:55 PM 12/26/2021 4:30 PM Question Answer Comments Code Status Discussion: Reviewed Preferences * Full Code Date Activated Date Inactivated Comments 11/25/2021 10:43 PM 11/28/2021 8:09 PM Question Answer Comments Code Status Discussion: Reviewed Preferences Care Teams Sales Director Relationship Specialty Start Date End Date Rosamaria Garcia PA [facility] [place] [address] PCP - General Physician Director Prison 12/21/22 Radha Baires, JOSH Psychiatry Nurse Practitioner 07/02/16 Rosamaria Dunn Cancer Nurse Coordinator Registered Nurse 11/15/16 Alison Otto, [facility] [address] [place] [address] [facility] Cigar Tobacco Rehandler 01/18/17 Christopher Collins MBBS [address] [place] [address] Oncology Oncology 01/11/17 Nik Flores LSW [address] [place] [address] Certified Home Health Aide 01/28/17
[2024-06-08 16:45] VITALS: BP 201/101; PULSE 74; RESP 18; TEMP 37.2; O2SAT 100; BMI 22.3
--- NOTE | 2024-06-08 17:49 | ED_ITS ---
HPI - General Adult General Chief complaint: Unspecified Complaint, Adult Stated complaint: dialysis port bleeding Time Seen by Provider: 06/08/24 16:51 History of Present Illness HPI narrative: This 54-year-old male comes from dialysis where his access site at the fistula of his left upper arm is persistently bleeding. He comes in with a clamp on his upper arm for providing pressure. He has been wearing this clamp for about an hour. Is not report any lightheadedness. He states that he is due for a fistulogram in the next week or so. Related Data Home Medications ?Medication ?Instructions ?Recorded ?Confirmed amlodipine 10 mg tablet 10 mg PO DAILY 12/26/21 02/11/23 atorvastatin 40 mg tablet 40 mg PO DAILY 12/26/21 02/11/23 diclofenac sodium 1 % topical gel 2 g topical 12/26/21 ferric citrate 210 mg iron tablet 2 tab PO TID 12/26/21 02/11/23 (Auryxia) lidocaine-prilocaine 2.5 %-2.5 % 1 applic topical DAILY 12/26/21 02/11/23 topical cream metoprolol tartrate 25 mg tablet 25 mg PO Q12H 12/26/21 02/11/23 ondansetron 8 mg disintegrating 8 mg PO Q8H PRN 12/26/21 02/11/23 tablet oxycodone 5 mg tablet 5 mg PO Q6H PRN 12/26/21 02/11/23 sennosides 8.6 mg tablet (Suyapa-ulysses) 8.6 mg PO DAILY PRN 12/26/21 02/11/23 sevelamer carbonate 800 mg tablet 2,400 mg PO TID 12/26/21 08/15/22 vit B,C-folic ac 800 mcg-zinc 12.5 1 tab PO DAILY 12/26/21 02/11/23 mg-selen-D3 2,000 unit-vit E tablet (RenaPlex-D) sucralfate 100 mg/mL oral 1 g PO BID 02/11/23 02/11/23 suspension (Carafate) tizanidine 2 mg tablet 2 mg PO QPM 02/11/23 02/11/23 Previous Rx's ?Medication ?Instructions ?Recorded fidaxomicin 200 mg tablet 200 mg PO BID 10 days #20 tabs 10/21/22 naloxegol 12.5 mg tablet (Movantik) 12.5 mg PO QAM #5 tabs 12/02/22 ondansetron 8 mg disintegrating 8 mg PO Q8H PRN nausea and 04/21/23 tablet vomiting #30 tabs Allergies Allergy/AdvReac Type Severity Reaction Status Date / Time lisinopril Allergy Severe angioedema Verified 01/21/23 14:44 Penicillins Allergy Unknown Verified 01/21/23 14:44 hydromorphone (From Dilaudid) AdvReac nausea/vomi Verified 01/21/23 14:44 ting Review of Systems Status of ROS: Reports: 10 or more systems reviewed and unremarkable except as noted in History and below Narrative: Constitutional: No fevers, no weight gain or loss. Eyes: No discharge. No vision changes. HENT: No congestion, no sore throat, no ear pain. Cardiovascular: No chest pain, no palpitations. Respiratory: No shortness of breath, no wheezes, no cough. Gastrointestinal: No abdominal pain, no vomiting, no diarrhea. Genitourinary: No dysuria, no hematuria. Musculoskeletal: Normal range of motion. Skin: No rashes, no pruritis. Neurological: No dizziness, weakness, sensory change, speech change. Endo/Heme/Allergies: No bruising or bleeding. No polydipsia. Pysch: no suicidality, no anxiety, no insomnia. All other systems reviewed and are negative. [facility] Medical History Type 2 diabetes mellitus, without long-term current use of insulin ?E11.9 - Type 2 diabetes mellitus without complications (ICD-10) Hypertension ?I10 - Essential (primary) hypertension (ICD-10) Malignant neoplasm of sigmoid colon ?C18.7 - Malignant neoplasm of sigmoid colon (ICD-10) Spondylosis of lumbar region without myelopathy or radiculopathy ?M47.816 - Spondylosis without myelopathy or radiculopathy, lumbar region (ICD-10) Bilateral hip pain ?M25.551 - Pain in right hip (ICD-10) ?M25.552 - Pain in left hip (ICD-10) Spinal stenosis, lumbar region without neurogenic claudication ?M48.061 - Spinal stenosis, lumbar region without neurogenic claudication (ICD-10) Lumbar foraminal stenosis ?M48.061 - Spinal stenosis, lumbar region without neurogenic claudication (ICD-10) Chronic abdominal pain ?R10.9 - Unspecified abdominal pain (ICD-10) ?G89.29 - Other chronic pain (ICD-10) Chronic pain of both shoulders ?M25.511 - Pain in right shoulder (ICD-10) ?M25.512 - Pain in left shoulder (ICD-10) ?G89.29 - Other chronic pain (ICD-10) Peripheral polyneuropathy ?G62.9 - Polyneuropathy, unspecified (ICD-10) Chronic thoracic back pain ?M54.6 - Pain in thoracic spine (ICD-10) ?G89.29 - Other chronic pain (ICD-10) GERD (gastroesophageal reflux disease) ?K21.9 - Gastro-esophageal reflux disease without esophagitis (ICD-10) Chronic constipation ?K59.09 - Other constipation (ICD-10) Hematemesis ?K92.0 - Hematemesis (ICD-10) Anxiety and depression ?F41.9 - Anxiety disorder, unspecified (ICD-10) ?F32.A - Depression, unspecified (ICD-10) ESRD on hemodialysis ?N18.6 - End stage renal disease (ICD-10) ?Z99.2 - Dependence on renal dialysis (ICD-10) Secondary hyperparathyroidism (of renal origin) ?N25.81 - Secondary hyperparathyroidism of renal origin (ICD-10) Surgical History History of colectomy ?Z90.49 - Acquired absence of other specified parts of digestive tract (ICD- 10) History of cholecystectomy ?Z90.49 - Acquired absence of other specified parts of digestive tract (ICD- 10) Social History Smoking Status: Former smoker Do you use any of these nicotine containing products: None Second hand tobacco smoke exposure: No How often do you have a drink containing alcohol: never How often do you have six or more drinks on one occasion: Never AUDIT-C Alcohol total score: 0 Non-prescribed substance use: marijuana (any form) service: No Exam Narrative: Exam Narrative: Constitutional: Well-developed, well-nourished, no acute distress. HEENT: Normocephalic, atraumatic. Neck: Normal range of motion. Nontender. Supple. Heart: Regular. No murmurs. Normal rate. Intact distal pulses. Lungs: Clear to auscultation. No chest discomfort. No wheezes, rhonchi, or rales. Abdomen: Normal bowel sounds. Nontender. No rebound tenderness. Genitalia: Deferred. Back: No midline tenderness. Normal range of motion. Extremities: Normal range of motion. No injury. Fistula in the left upper arm has an access in its lower aspect near the elbow. There is persistent flow of blood when pressure is removed from a pinhole site. He has a very strong thrill and without pressure the blood is squirting across the room. Skin: Intact. No rash. Warm. No erythema or pallor. Neurologic: No altered sensation. No weakness. Alert and oriented. Psychiatric: No suicidality. No anxiety or depression. No insomnia. Nursing notes and vitals signs are reviewed. Const: Vital Signs, click to edit/add: Vital Signs - 24 hr 06/08/24 16:45 Temperature 99 F Pulse Rate [Pulse Oximeter] 74 Respiratory Rate 18 Blood Pressure [Ri t Upper Arm] 201/101 H Pulse Oximetry 100 Oxygen Delivery Me thod Room Air Course Vital Signs Vital signs: Initial Vital Signs Temperature 99 F 06/08/24 16:45 Temperature Source Temporal Artery Scan 06/08/24 16:45 Pulse Rate 74 06/08/24 16:45 Respiratory Rate 18 06/08/24 16:45 Blood Pressure 201/101 H 06/08/24 16:45 Blood Pressure Mean 134 H 06/08/24 16:45 Pulse Oximetry 100 06/08/24 16:45 Oxygen Delivery Method Room Air 06/08/24 16:45 Vital Signs Temperature 99 F 06/08/24 16:45 Pulse Rate 74 06/08/24 16:45 Respiratory Rate 18 06/08/24 16:45 Blood Pressure 201/101 H 06/08/24 16:45 Pulse Oximetry 100 06/08/24 16:45 Oxygen Delivery Method Room Air 06/08/24 16:45 Temperature 99 F 06/08/24 16:45 Pulse Rate 74 06/08/24 16:45 Respiratory Rate 18 06/08/24 16:45 Blood Pressure 201/101 H 06/08/24 16:45 Pulse Oximetry 100 06/08/24 16:45 Oxygen Delivery Method Room Air 06/08/24 16:45 Medical Decision Making MDM Narrative Medical decision making narrative: This patient has a fistula that continues to bleed after access for dialysis. He has a very strong thrill and pulse in this fistula. Direct pressure was applied without requiring any hemostasis. After anesthesia with 1% lidocaine with epinephrine I used 4.0 Ethilon suture and placed 2 sutures in interrupted fashion to properly arrest the bleeding. This area was dressed with gauze and wrapped with Coban for additional pressure. The patient will have a follow-up for his fistulogram and sutures can be removed then. Discharge Plan Discharge Clinical Impression: Hemorrhage of arteriovenous fistula Patient Disposition: Home, Self-Care Condition: Improved Additional Instructions: Keep pressure dressing over the wound on the fistula. Follow up for dialysis and fistulogram as scheduled. Sutures should be removed in 7-10 days. Prescriptions: No Action atorvastatin 40 mg tablet 40 mg PO DAILY Patient Comments: TAKE ONE TABLET BY MOUTH AT BEDTIME sennosides [Suyapa-ulysses] 8.6 mg tablet 8.6 mg PO DAILY PRN Patient Comments: TAKE 1 TABLET (8.6 MG) BY MOUTH 2 TIMES DAILY. ondansetron 8 mg tablet,disintegrating 8 mg PO Q8H PRN Patient Comments: PLACE 1 TABLET (8MG) ON THE TONGUE EVERY 8 HOURS IF NEEDED FOR N AUSEA/VOMITING. lidocaine-prilocaine 2.5-2.5 % cream 1 applic topical DAILY Patient Comments: APPLY SMALL AMOUNT TO ACCESS SITE (AVF) 1 TO 2 HOURS BEFORE DIALYSIS. COVER WITH OCCLUSIVE DRESSING (SARAN WRAP) amlodipine 10 mg tablet 10 mg PO DAILY Patient Comments: TAKE ONE TABLET BY MOUTH ONCE DAILY oxycodone 5 mg tablet 5 mg PO Q6H PRN metoprolol tartrate 25 mg tablet 25 mg PO Q12H Patient Comments: TAKE ONE TABLET BY MOUTH TWICE A DAY. ON DIALYSIS DAYS TAKE THIS AFTERWARDS sevelamer carbonate 800 mg tablet 2,400 mg PO TID Patient Comments: TAKE 4 TABLETS BY MOUTH THREE TIMES DAILY WITH MEALS AND 3 TABLETS TWICE DAILY WITH SNACKS diclofenac sodium 1 % gel 2 g TOPICAL Patient Comments: APPLY 2 G TOPICALLY TO AFFECTED AREA(S) 4 TIMES DAILY. Auryxia 210 mg iron tablet 2 tab PO TID Patient Comments: TAKE 2 TABLETS BY MOUTH THREE TIMES A DAY WITH MEALS AND 1 TABLET TWICE A DAY WITH SNACKS. SWALLOW WHOLE, DO NOT CHEW OR CRUSH MEDICATION RenaPlex-D 800 mcg-12.5 mg -2,000 unit tablet 1 tab PO DAILY Patient Comments: TAKE 1 TABLET BY MOUTH EVERY DAY WITH THE EVENING MEAL fidaxomicin 200 mg tablet 200 mg PO BID 10 Days Qty: 20 0RF Rx Instructions: May need PA. His C Diff is resistant to Flagyl and Vanco. Movantik 12.5 mg tablet 12.5 mg PO QAM Qty: 5 0RF Rx Instructions: must be taken on empty stomach; no food 1 hr after or 2-3 hrs before dose sucralfate [Carafate] 100 mg/mL suspension 1 g PO BID tizanidine 2 mg tablet 2 mg PO QPM ondansetron 8 mg tablet,disintegrating 8 mg PO Q8H PRN (Reason: nausea and vomiting) Qty: 30 0RF Follow Up/Referrals: Rosamaria Garcia, MARIANNA [Primary Care Provider] - Stand Alone Forms: [facility] Inst[facility]
--- OUTSIDE RECORDS SUMMARY | 2024-06-08 18:01 | XMS_ITS | Continuity of Care Document ---
Author Organization [facility] Address [address] [place] [address] Phone Care Team Providers Care Unit Tender Name Role Phone Mary Park DNP Unavailable [...] Providers Copied on Encounter OFFICE/OUTPA TIENT VISIT, [facility], [address] [place], [place], [id number] , [place] tel:[phone] [facility] [place] mid back pain (chief complaint) Type 2 diabetes mellitus with diabetic polyneuropathyChr onic pain syndromePain in right shoulderOther intervertebral disc degeneration, thoracic regionRadiculopat hy, lumbar regionMyalgia, other siteLong term (current) use of opiate analgesic 4 Vivian Hernandez. [address], [address], [id number], [place]. tel:[phone] Referring Provider: Rosamaria Garcia, [address], [address]. tel:[phone] OFFICE/OUTPA TIENT VISIT, [facility], [address] [place], [place], [id number] , [place] tel:[phone] [facility] Mid back pain (chief complaint) Type 2 diabetes mellitus with diabetic polyneuropathyChr onic pain syndromePain in right shoulderOther intervertebral disc degeneration, thoracic regionRadiculopat hy, lumbar regionMyalgia, other siteLong term (current) use of opiate analgesic 4 Vivian Hernandez. [address] [facility] [address], [facility] [[email or web address] [address], [place], [id number], [place]. tel:[phone] Referring Provider: Rosamaria Garcia [address], [address]. tel:[phone] OFFICE/OUTPA TIENT VISIT, [facility], [address] [place], [place], [id number] , [place] tel:[phone] [facility] mid back pain (chief complaint) Chronic pain syndromeLong term (current) use of opiate analgesicPain in right shoulderMyalgia, other siteOther intervertebral disc degeneration, thoracic regionRadiculopat hy, lumbar regionType 2 diabetes mellitus with diabetic polyneuropathy 3 Vivian Hernandez. [address] [facility] [address], [address], [id number], [place]. tel:[phone] Referring Provider: Rosamaria Garcia [address], [address]. tel:[phone] Family History Family Member Type Diagnosis Age At Onset No Information Payers Payer name Insurance type Covered democrat ID Authoriza tion(s) Medicare MB [id number] [employer] [facility] [id number] Social History Type Description Quantity Date Captured [...] due Goal OARS. Due on due Goal LYRIC WRITER Paperwork. Due on due Goal ALT (SGPT). Due on due Goal Creatinine. Due on due Goal Medication Reconciliation. D ue on due Goal CT-Colonography. Due on due Goal Review Allergy List. Due on due Goal Lipid panel. Due on due Goal CUTTER OUT Scanned. Due on due Goal FIT-DNA. Due [...] Review Allergy List. Due on due Goal CUTTER OUT Scanned. Due on due Goal Height. Due [...] Order Annual PT. Due on due Goal LYRIC WRITER Paperwork. Due on due Goal AST (SGOT). Due on due Goal OARS. Due on due Goal CUTTER OUT Scanned. Due on due Goal OARS. Due on due Goal Order Annual PT. Due on due Goal UDT. Due on due Goal Creatinine. Due on due Goal AST (SGOT). Due on due Goal LYRIC WRITER Paperwork. Due on due Goal ALT (SGPT). [...] pain. Has not received a call from [facility] regarding a previous order of a TENS [...] evaluation of the patient. Outside records from [facility] are available for review.Vik Goodwin) is a 53 y/o male here for initial consult for mid to low back pain with radiation down his R leg as well as R shoulder pain, referred by CAMILLE Clarke, through [facility]. Mid back pain is most bothersome. Pain [...] and has put it off.He has tried career professional and PT, without lasting relief. Has tried an unknown type of low back injection, which did not provide relief. Intends to start acupuncture. Previously followed with [facility]. He had previously tried gabapentin and lyrica, which caused him to feel off. Hydrocodone caused nausea.The patient is currently managed on oxycodone 10mg TID and tizanidine 2mg HS as needed. Cannabis is helpful for his anxiety, but cost-prohibitive. Tizanidine provides some relief for his low back and helps with sleep. He is interested in all treatment options through [facility]. No other concerns today.Treaments Tried: Oxycodone PT- [...] low back pain.Forwarded Hx: He has tried career professional and PT, without lasting relief. Previously followed with [facility] assessment Myalgia, other site impression Mid back pain feels muscular, tense, and tight. 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 Patient Care Teams Name Effective Dates (start - stop) Status Members No Information
--- OUTSIDE RECORDS SUMMARY | 2024-06-08 18:01 | XMS_ITS | Clinical Summary ---
Author Organization [facility] Address [address] [place] [address] Care Team Providers Care Transportation Program Director Name Role Phone Elsewhere, Pcp Primary Care Provider Unavailabl e Source Comments Patient records contain information from all sites at [facility]. For routine questions regarding patient records, call [phone] during business hours, M-F 8:00 AM - 5:00 PM Central Time. Record requests for emergency care only can be directed to [phone] at any time.[facility] Allergies Active Allergy Reactions Criticality Noted Date [...] M, W, F with Dr. Brown in [place]. 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 Gender Identity Not on file Sexual [...] BLOOD ADD-ON Final Result Performing Organization Address City/[facility]/ZIP Co de Phone Number [facility] [address] [place] [address], [facility] DTL [facility][note 2] [address] [place] [address] * Hemoglobin A1c (08/05/2017 6:18 AM CDT) Hemoglobin A1c, B 5.2 4.2 - 5.6 % 08/08/2017 1:52 AM CDT [facility] Blood (Blood, Venous) 08/05/2017 6:18 AM CDT 08/07/2017 11:47 PM CDT us [facility] BLOOD ADD-ON Final Re sult Performing Organization Address City/[facility] Co de Phone Number [facility] [address] [place], [place] [address] from Last 3 Months or Most Recently Relevant to Health Maintenance Insurance MEDICARE MEDICA Advance Directives For more information, please contact: [phone] * Full Code (Latest Code Status on [...] Answer Comments Full Code: Discussed Care Teams Transportation Program Director Relationship Specialty Start Date End Date Elsewhere, Pcp PCP - General 07/29/20
--- OUTSIDE RECORDS SUMMARY | 2024-06-08 18:01 | XMS_ITS | Encounter Summary ---
Author Organization [place] Address [address] [facility] [place] [address] Care Team Providers Care Progressive Assembler And Fitter Name Role Phone Courtney Guardado MD Primary Care Provider [phone] Gavin Lombardo Primary Care Provi moses Kedar Dang MD Unavailable [phone] Rosamaria Garcia PA-C Primary Care Provider [phone] Encounter Details Date Type Department Care Team (Late st Contact Info) Description 05/24/2018 External Order Results [facility] [address] [place] [address] Outside, Provider Social History Tobacco Use Types Packs/Day Years Used Date Smoking Tobacco: Every Day Cigarettes 0.5 27 Smokeless Tobacco: Never Alcohol Use Standard Drinks/Week Comments Yes 0 (1 standard drink = 0.6 oz pur e alcohol) occ. Sex and Gender Information Value Date Recorded Sex Assigned at Not on file Legal Sex Male 5:19 AM OIL AND GAS SPECIALIST Gender Identity Not on file Sexual Orientation Not on file documented as of this encounter Plan of Treatment Upcoming Encounters Date Type Department Care Team (Late st Contact Info) Description 06/19/2024 8:00 AM OIL AND GAS SPECIALIST Hospital Encounter [facility] [address] [place] [phone] Hugo Sainz MD [facility] [address] [facility] [address] [facility] [address] [place] [address] documented as of this encounter Visit Diagnoses Not on filedocumented in this encounter Care Teams Progressive Assembler And Fitter Relationship Specialty Start Date End Date Courtney Guardado MD PCP - General 03/09/12 07/30/20 Gavin Lombardo PA PCP - General Family Practice 07/31/20 12/14/23 Rosamaria Garcia PA-C [address] [place] [address] PCP - General 12/15/23 [place] [address] [place] [address] Assigned Gastroenterology Provider 01/29/23 documented as of this encounter
--- OUTSIDE RECORDS SUMMARY | 2024-06-08 18:01 | XMS_ITS ---
Author Organization [facility] Address [address] [place] [address] Care Team Providers Care Weight Training Instructor Name Role Phone Elsewhere, Pcp Primary Care [...] M, W, F with Dr. Brown in [place]. Hypertensive Chronic Kidney Disease With Stage 5 [...] on file Legal Sex Male 4:05 PM CLINICAL TRIAL ASSISTANT Gender Identity Not on file Sexual Orientation [...] Renal Function Panel (09/24/2022 12:21 AM CDT) [facility] Signature Potassium, S 4.7 3.6 - 5.2 [...] Ceja M.D. LAB BLOOD ADD-ON Final Result [facility] [address] [place] [address], [facility] DTL [facility] [address] [place] [address] * Hemoglobin A1c (08/05/2017 6:18 AM CDT) Hemoglobin A1c, B 5.2 4.2 - 5.6 % 08/08/2017 1:52 AM CDT [facility] Blood (Blood, Venous) 08/05/2017 6:18 AM CDT 08/07/2017 11:47 PM CDT us [facility] BLOOD ADD-ON Final Re sult [facility] [address] [place] [address], [facility] from Last 3 Months or Most Recently Relevant to Health Maintenance
--- OUTSIDE RECORDS SUMMARY | 2024-06-08 18:01 | XMS_ITS | Encounter Summary ---
Author Organization [place] Address [address] [facility] [place] [address] Care Team Providers Care Inspector Watch Train Name Role Phone Gavin Lombardo Primary Care Provi moses Unavailable Kedar Tello MD Unavailable [phone] Rosamaria Garcia PA-C Primary Care Provider [phone] Encounter Details Date Type Department Care Team (Late st Contact Info) Description 08/24/2021 External Order Results [facility] [address] [place] [address] Outside, Provider Social History Tobacco Use Types Packs/Day Years Used Date Smoking Tobacco: Every Day Cigarettes 0.5 27 Smokeless Tobacco: Never Alcohol Use Standard Drinks/Week Comments Yes 0 (1 standard drink = 0.6 oz pur e alcohol) occ. Sex and Gender Information Value Date Recorded Sex Assigned at Not on file Legal Sex Male 5:19 AM COACH Gender Identity Not on file Sexual Orientation [...] st Contact Info) Description 06/19/2024 8:00 AM COACH Hospital Encounter [facility] [address] [place] [address] Hugo Sainz MD [facility] [address] [place], [place] [phone] documented as of this encounter Procedures Procedure [...] Provider Outside LABORATORY Edited Result - Final MATILDA PFT NON-INTERFACED (ONBASE SCANS) documented in this encounter Visit Diagnoses Not on filedocumented in this encounter Care Teams Inspector Watch Train Relationship Specialty Start Date End Date Gavin Lombardo PA PCP - General Family Practice 07/31/20 12/14/23 Rosamaria Garcia PA-C [address] [place] [address] PCP - General 12/15/23 [place] [address] [place] [address] Assigned Gastroenterology Provider 01/29/23 documented as of this encounter
--- OUTSIDE RECORDS SUMMARY | 2024-06-08 18:01 | XMS_ITS | Encounter Summary ---
Author Organization [place] Address [address] [facility] [place] [address] Care Team Providers Care Perfume Compounder Name Role Phone Kedar Tello MD Unavailable [phone] Rosamaria Garcia PA-C Primary Care Provider [phone] Reason for Visit * Auth/Cert (Routine) Specialty Diagnoses / Procedures Referred By Contaly t Referred To Contact Radiology. Imaging [address] [place] [address] Phone: tel: fax: Referral ID Status Reason Start Date Expiration Date Visits Re quested Visits Authorized [id number] 1 1 Encounter Details Date Type Department Care Team (Late st Contact Info) Description 04/24/2024 8:00 AM MACHINE STUFFER AUTOMATIC Hospital Encounter Imaging [address] [place] [phone] Gio Dubon MD [facility] [address] [place] [address] Social History Tobacco Use Types Packs/Day Years [...] on file Legal Sex Male 5:19 AM MACHINE STUFFER AUTOMATIC Gender Identity Not on file Sexual Orientation Not on file documented as of this encounter Plan of Treatment Upcoming Encounters Date Type Department Care Team (Late st Contact Info) Description 06/19/2024 8:00 AM MACHINE STUFFER AUTOMATIC Hospital Encounter Imaging [address] [place] [address] Hugo Sainz MD [facility] [address] [place] [address] documented as of this encounter Visit Diagnoses Not on filedocumented in this encounter Care Teams Perfume Compounder Relationship Specialty Start Date End Date Rosamaria Garcia PA-C [address] [place] [address] PCP - General 12/15/23 [place] [address] [place] [address] Assigned Gastroenterology Provider 01/29/23 documented as of this encounter
--- OUTSIDE RECORDS SUMMARY | 2024-06-08 18:02 | XMS_ITS | Continuity of Care Document ---
Author Organization [facility] Address [address] [facility] [address] [place] [address] Phone Care Team Providers Care Porcelain Finish Sprayer Name Role Phone Unavailable Unavailable Unavailable Medications [...] Providers Copied on Encounter ESTELA Blackmon, [address], [place], [place], [id number], [place] tel:[phone] [facility] No Information 3 No Information Referring Provider: Courtney Crowley, [address] [place], [address]. tel:[phone] Offic Cons New/estab Mod-hi 60 MARYSOL Blackmon, [address], [place], [place], [id number], [place] tel:[phone] [facility] No Information 3 Candy Peres. [address], [place], [address], [place]. tel:[phone] Referring Provider: Courtney Crowley, [address] [place], [address]. tel:[phone] Family History Family Member Type Diagnosis Age At Onset No Information Payers Payer name Insurance type Covered libertarian ID Flory garcia(s) [employer] [id number] Social History Type Description Quantity Date Captured [...]
--- OUTSIDE RECORDS SUMMARY | 2024-06-08 18:02 | XMS_ITS | Clinical Summary ---
Author Organization [facility] Address [place], [place] [address] Care Team Providers Care Metal Building Assembler Name Role Phone Radha Baires NETWORK SYSTEMS CONSULTANT Unavailable Unavailable Rosamaria Dunn Unavailable Unavailable Alison Otto INSIDE OUTSIDE SALES REPRESENTATIVE Unavailable [phone] Christopher Collins MBBS Unavailable [phone] Nik Flores MARKETING SERVICES REP Unavailable [phone] Rosamaria Garcia Primary Care Provider [phone] Allergies Active Allergy Reactions Criticality Noted Date [...] & Plan: Bilateral great toe Stable Encouraged jr. systems administrator consult and patient agree Type 2 diabetes [...] Assessment & Plan: ESRD Stable Dialysis at: [facility] on: MWF via fistula Diet: Renal, [...] M, W, F with Dr. Brown in [place]. Dependence on renal dialysis 06/08/2011 08/23/2019 Overview (09/21/2017): Overview: Overview: Dialysis M, W, F with Dr. Brown in [place]. ACP (advance care planning) 03/14/2011 05/11/2023 Overview (03/14/2011): Patient has identified Health Care Agent(s): Patient verbally identifies his significant other as health care decision maker however, she does not have a phone number at present. To contact Patient's family/SO contact can be made with Abhay Tovar (brother in law) [phone] and Thomas Carty [phone] Friend Patient has Advance Care Plan Documents [...] Department Care Team Description 06/04/2024 8:50 AM MANUAL ARTS THERAPY TEACHER Office Visit [facility] [address] [place] [address] Rosamaria Garcia PA Hand Pain/problem (Bilateral hand and foot pain-arthritis pain) 06/04/2024 Travel 05/31/2024 Refill [facility] [address] [place] [address] Rosamaria Garcia PA Refill Request (oxyCODONE 10 mg tablet) 05/30/2024 Refill [facility] [address] [place] [address] Rosamaria Garcia PA Refill Request (Dicyclomine) 05/30/2024 Telephone [facility] [address] [place] [address] Rosamaria Garcia PA Medication Management (dicyclomine (BENTYL) 20 mg tablet) 05/30/2024 Telephone [facility] [address] [place] [address] Rosamaria Garcia PA Results 05/29/2024 2:50 PM MANUAL ARTS THERAPY TEACHER Office Visit [facility] [address] [place] [address] Rosamaria Garcia PA Preoperative Exam (Dr. Florencia Young-cystoscopy) 05/29/2024 Travel 05/25/2024 Travel 05/21/2024 Telephone [facility] [address] [place] [address] Rosamaria Garcia PA Error-please disregard 05/21/2024 Nurse Triage [facility] [address] [place] [address] Rosamaria Garcia PA Musculoskeletal Problem 05/01/2024 Telephone [facility] [address] [place] [address] Rosamaria Garcia PA Refill Request (oxycodone) 04/20/2024 Telephone [facility] [address] [place] [address] Rosamaria Garcia PA Results 04/17/2024 9:50 AM MANUAL ARTS THERAPY TEACHER Office Visit [facility] [address] [place] [address] Rosamaria Garcia PA Follow Up (Needs a new referral for urology to get scope done) 04/17/2024 Travel 04/05/2024 Telephone [facility] [address] [place] [address] Rosamaria Garcia PA Form 04/03/2024 9:00 AM MANUAL ARTS THERAPY TEACHER Office Visit [facility] [address] [place] [phone] Latoya Thompson, OD Eye Exam (Diabetic) 04/03/2024 Telephone [facility] [address] [place] [address] Rosamaria Garcia PA Abstract (Form) 04/03/2024 Refill [facility] [address] [place] [address] Rosamaria Garcia PA Refill Request (oxyCODONE 10 mg tablet ) 04/03/2024 Travel 03/20/2024 Refill [facility] [address] [place] [address] Rosamaria Garcia PA Refill Request (Atorvastatin, Tizanidine) [...] on file Legal Sex Male 5:23 AM MANUAL ARTS THERAPY TEACHER Gender Identity Not on file Sexual Orientation Not on file Occupation Industry Job Start Date Job End Date unempolyed Not on file Not on file Not on file Obstetrics History Last Filed Vital Signs Vital Sign Reading Time Taken Comments Blood Pressure 183/86 06/04/2024 8:54 AM MANUAL ARTS THERAPY TEACHER Pulse 66 06/04/2024 8:54 AM MANUAL ARTS THERAPY TEACHER Temperature 36.2 C (97.2 F) 10/27/2023 3:42 PM CDT Respiratory Rate 16 10/27/2023 4:00 PM CDT Oxygen Saturation 100% 06/04/2024 8:54 AM MANUAL ARTS THERAPY TEACHER Inhaled Oxygen Concentration - - Weight 60.3 kg (133 lb) 06/04/2024 8:54 AM MANUAL ARTS THERAPY TEACHER Height 166 cm (5' 5.35) 05/29/2024 2:47 PM MANUAL ARTS THERAPY TEACHER Body Mass Index 21.89 05/29/2024 2:47 PM MANUAL ARTS THERAPY TEACHER Plan of Treatment Upcoming Encounters Date Type Department Care Team (Late st Contact Info) Description 07/03/2024 11:50 AM MANUAL ARTS THERAPY TEACHER Office Visit [facility] [address] [facility] [address] [place] [address] [place] [address] [place] [address] [place], [place] [id number] Health Maintenance Due Date Last Done Comments [...] Card MD Medical Devices Implanted Type Area Rn Clinical Resource Device Identifier Shelf Expiration Date Model / Serial / Lot Graft Vasc 8mm 40cm Propaten Thin Wall - [id number] Implanted:Qty: 1 on 04/10/2015 by Ash Zambrano MD at [facility] Left: Arm [employer] 10/23/2018 [id number] # / / Power Port Isp Mri 6fr [id number] - Stan Only - [id number] Implanted:Qty: 1 on 01/27/2017 by Kiet Hernandez DO at [facility] N/A: Chest [employer] 03/01/2018 [id number] / / [id number] Description:PowerPort isp M. R.I. Implantable Port Sys Ancr Sut 4.75mm Biocomposite - [id number] Implanted:Qty: 1 on 10/27/2023 by Milind Arroyo MD at [facility] Right: Shoulder [employer] 06/30/2027 [id number] CSL / / [id number] Procedures Procedure Name Priority Date/Time Associated Diagnosis Comments CBC WITH AUTO DIFFERENTIAL Routine 05/29/2024 3:28 PM MANUAL ARTS THERAPY TEACHER Pre-op exam LIPID PANEL W REFLEX MEASURED LDL Routine 04/17/2024 10:16 AM MANUAL ARTS THERAPY TEACHER Type 2 diabetes mellitus with chronic kidney disease on chronic dialysis, without long-term current use of insulin (HC) HEMOGLOBIN A1C Routine 04/17/2024 10:16 AM MANUAL ARTS THERAPY TEACHER Type 2 diabetes mellitus with chronic kidney [...] (ABNORMAL) CBC AND DIFFERENTIAL (05/29/2024 3:28 PM MANUAL ARTS THERAPY TEACHER) WHITE BLOOD CELL COUNT 7.6 3.8 - [...] BLOOD SPECIMEN / Unknown 05/29/2024 3:28 PM MANUAL ARTS THERAPY TEACHER 05/29/2024 3:29 PM MANUAL ARTS THERAPY TEACHER us Rosamaria OBRIEN HEMATOLOGY Final Resu lt [facility] [address] [place] [address], [facility] [address] [place] [address] * HEMOGLOBIN A1C (04/17/2024 10:16 AM MANUAL ARTS THERAPY TEACHER) HEMOGLOBIN A1C 4.9 <5.7 % of total [...] diagnosis of diabetes in children. According to [place] Diabetes Association (ADA) guidelines, hemoglobin A1c <7.0% represents optimal control in non- diabetic patients. Different metrics may apply to specific patient populations. Standards of Medical Care in Diabetes(ADA). Blood BLOOD SPECIMEN / Unknown 04/17/2024 10:16 AM MANUAL ARTS THERAPY TEACHER 04/17/2024 10:16 AM MANUAL ARTS THERAPY TEACHER us Rosamaria OBRIEN CHEMISTRY Final Resu lt [facility] [address] [place] [address], [facility] [address] [place] [address] * LIPID PANEL W REFLEX MEASURED LDL (04/17/2024 10:16 AM MANUAL ARTS THERAPY TEACHER) [facility] CHOLESTEROL, TOTAL 145 <200 mg/dL [facility] HDL CHOLESTEROL 64 > OR = 40 mg/dL [facility] TRIGLYCERIDES 71 <150 mg/dL [facility] LDL-CHOLESTEROL 66 mg/dL (calc) [facility] Comment: Reference range: <100 Desirable range <100 mg/dL for primary prevention; <70 mg/dL for patients with CHD or diabetic patients with > or = 2 CHD risk factors. LDL-C is now calculated using the Parrish-Rahul calculation, which is a validated novel method providing better accuracy than the Friedewald equation in the estimation of LDL-C. Parrish CUELLAR et al. JULIEN. 2013;310(19): 7436-6644 (http://education.Honey/faq/DYR958) CHOL/HDLC RATIO 2.3 <5.0 (calc) [facility] NON HDL CHOLESTEROL 81 <130 mg/dL (calc) [facility] Comment: For patients with diabetes plus 1 major ASCVD risk factor, treating to a non-HDL-C goal of <100 mg/dL (LDL-C of <70 mg/dL) is considered a therapeutic option. Blood BLOOD SPECIMEN / Unknown 04/17/2024 10:16 AM MANUAL ARTS THERAPY TEACHER 04/17/2024 10:16 AM MANUAL ARTS THERAPY TEACHER Rosamaria OBRIEN CHEMISTRY Final Resu lt [facility] [address] [place] [address], [facility] [address] [place] [address] * COLONOSCOPY (12/15/2022 3:12 PM CDT) 12/15/2022 [...] adequate candidate for conscious sedation. The endoscope [id number] was passed through the anus andadvanced to [...] Reactive Non Reactive 10/05/2022 1:09 PM CDT [facility]) Comment: HIV Negative HIV-1/HIV-2 antibodies and HIV-1 p24 antigen were NOT detected. There is no laboratory evidence of HIV infection. Blood BLOOD SPECIMEN / Unknown Venipuncture / Unknown 10/01/2022 3:44 PM CDT 10/01/2022 3:46 PM CDT Narrative [facility] ([facility]) - 10/05/2022 1:09 PM CDT Performed at: [address] [place] [address] [place] [id number] Electrical Tech/Project Manager: Sudheer Yanez MD, Phone: [phone] Gavin OBRIEN LABORATORY Fin al Result [facility] ([facility]) [address] [place] [address] * ANTI HCV (12/26/2021 5:58 AM CDT) Pathologist [facility] HEPATITIS C ANTIBODY Non-React fuentes Non-React fuentes 12/28/2021 5:08 PM CDT [facility] Comment:Antibodies to HCV no t detected; does not exclude the possibility of exposure to HCV. Blood BLOOD SPECIMEN / Unknown Venipuncture / Unknown 12/26/2021 5:58 AM CDT 12/26/2021 6:33 AM CDT Gavin OBRIEN SEND OUTS Fin al Result [facility] [address] [place] [address], [place] from Last 3 Months or Most [...] [facility] PB ONLY [address] [facility] [place] [address] Advance Directives * Full Code (Latest Code [...] Code Status Discussion: Reviewed Preferences Care Teams Metal Building Assembler Relationship Specialty Start Date End Date Rosamaria Garcia PA [facility] [place] [address] PCP - General Physician Loading Checker 12/21/22 Radha Baires, JOSH Psychiatry Nurse Practitioner 07/02/16 Rosamaria Dunn Cancer Nurse Coordinator Registered Nurse 11/15/16 Alison Otto, [facility] [address] [place] [address] [facility] Patient Services Coordinator 01/18/17 Christopher Collins MBBS [address] [place] [address] Oncology Oncology 01/11/17 Nik Flores LSW [address] [place] [address] Eye Clinic Manager 01/28/17
--- OUTSIDE RECORDS SUMMARY | 2024-06-08 18:02 | XMS_ITS | Continuity of Care Document ---
Author Organization [facility] Address [address] [place] [address] Phone Care Team Providers Care Receiving Coordinator Name Role Phone Shalom Whitman MD Unavailable [...] Diagnoses Date Provider Providers Copied on Encounter [facility], [address], [place], [place], [id number], [place] tel:[phone] [facility] No Information Antonette Rausch. [facility], [address] [place] [address], [address], [place], [place], [id number], . tel:[phone] Office/Outpati ent Visit,Est, [facility], [address], [place], [place], [id number], [place] tel:[phone] [facility] Radiculopathy , thoracic region Milind Berrios. [facility], [address] [place] [address] [address], [place], [place], [id number], . tel:[phone] Referring Provider: Yash Skelton, [facility] [address] Suite [facility], [place], [address]. tel:[phone] Office/Outpati ent Visit,New, [facility], [address], [place], [place], [id number], [place] tel:[phone] [facility] Other spondylosis, cervical regionOther spondylosis, lumbar region Milind Berrios. [facility], [address] [place] [address] [address], [place], [place], [id number], . tel:[phone] Referring Provider: Yash Skelton, [facility] [address] Suite [facility], [place], [address]. tel:[phone] Family History Family Member Type Diagnosis Age At Onset No Information Payers Payer name Insurance type Covered alliance party ID Authordaisya jose(s) Medicare MB [id number] [employer] BLAISE Mendez ([id number]) CI [id number] Social History Type Description Quantity Date Captured [...]
--- OUTSIDE RECORDS SUMMARY | 2024-06-08 18:03 | XMS_ITS | Clinical Summary ---
Author Organization [facility] Address [address] [place] [address] Care Team Providers Care Owner/Operator Name Role Phone Kedar Tello MD Unavailable [phone] Rosamaria Garcia PA-C Primary Care Provider [phone] Allergies Active Allergy Reactions Criticality Noted Date [...] mg by mouth every morning Active B babwwxx-W-myxiw acid (NEPHROCAPS) 1 MG capsule Take 1 [...] Department Care Team Description 04/24/2024 8:00 AM CARBON PAPER COATING MACHINE SETTER Hospital Encounter [facility] [address] [place] [address] Gio Dubon MD 04/17/[address] 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 Gender Identity Not on file Sexual Orientation [...] st Contact Info) Description 06/19/2024 8:00 AM CARBON PAPER COATING MACHINE SETTER Hospital Encounter [facility] [address] [place] [address] Hugo Sainz MD [facility] [address] [place], [place] [id number] Health Maintenance Due Date Last Done Comments [...] Basic metabolic panel (08/11/2023 8:56 AM CDT) [facility] Sodium 138 135 - 145 mmol/L 08/11/2023 [...] LAB - BLOOD ORDERAB LES Final Result [facility] [address] [facility] (1st floor, no room number) [place] [address], [facility] from Last 3 Months or Most Recently Relevant to Health Maintenance Insurance [employer] [place]ILITY [place] [employer] MEDICARE ADVANTAGE [employer] [place]ILITY [place] [employer] MEDICARE ADVANTAGE Care Teams Owner/Operator Relationship Specialty Start Date End Date Rosamaria Garcia PA-C [address] [place] [address] PCP - General 12/15/23 [place] [address] [place] [address] Assigned Gastroenterology Provider 01/29/23
--- OUTSIDE RECORDS SUMMARY | 2024-06-08 18:03 | XMS_ITS | Continuity of Care Document ---
Author Organization [facility] Address [address] [address] [place] [address] Phone Care Team Providers Care Scrap Iron Cutter Name Role Phone Emma KENYON, Nayuredin Unavailable Unavailab le Allergies, Adverse Reactions, Alerts Substance Reaction Status Criticality HYDROMORPHONE HCL Active No Informa tion lisinopril Active No Information Penicillins Active No Information Medications Medication Instructions Dosage Effective Dates (start - stop) Status Comments Miralax 17 gram/dose oral powder take by oral route as directed per COL prep instructions received from [facility] - Active Procedure isaiah e: *12/20/23, please dispense 1-8.3ml bottle Golytely 236 gram-22.74 gram-6.74 gram-5.86 gram oral solution Take by oral route as directed in colon prep instructions received from [facility] - Active Please keep o n file [...] Diagnoses Date Provider Providers Copied on Encounter [facility], [address] [address], [place], [address], [place] tel:[phone] [facility] No Information [address] [place] [address], [address], [id number], [place]. tel:[phone] [facility], [address] [address], [place], [address], [place] tel:[phone] [facility] Chronic kidney disease, unspecified CKD stage 4 Ernesto Roweahim. [address] [facility], [address], [id number], [place]. tel:[phone] [facility], [address] [address], [place], [address], [place] tel:[phone] [facility] No Information 4 Ernesto Roweahim. [address] [facility], [address], [id number], [place]. tel:[phone] Offic/outpt E&m Estab Mod-hi 2 [facility] [place], [address] [address], [place], [address], [place] tel:[phone] [facility] GI Symptoms or Concerns (chief complaint) Recurrent Clostridium difficile diarrheaColon polypHistory of colon cancer 4 Brittani Foss. [address] [facility], [address], [id number], [place]. tel:[phone] Referring Provider: Referral Self, USE FOR SELF REFERRALS. [facility], [address] [address], [place], [id number], [place] tel:[phone] [facility] Generalized abdominal pain 3 Leonides Montalvo. [address] [facility], [facility] [address], [place], [place], [address], [place]. tel:[phone] [facility], [address] [address], [place], [address], [place] tel:[phone] [facility] No Information 3 Gonzalo Gibson. [address] [facility], [facility] [address], [place], [place], [address], [place]. tel:[phone] Referring Provider: Arthur Sánchez MD, [address] [facility] [address], [place], [address] . tel:[phone] Offic/outpt E&m Estab Mod-nc 2 [facility] [place], [address] [address], [place], [address], [place] tel:[phone] [facility] GI Symptoms or Concerns (chief complaint) Recurrent Clostridium difficile diarrhea 3 Leonides Montalvo. [address] [facility], [address], [id number], [place]. tel:[phone] Referring Provider: Referral Self, USE FOR SELF REFERRALS. [facility], [address] [address], [place], [address], [place] tel:[phone] [facility] Recurrent Clostridium difficile diarrhea 3 Theodore Baeza. [address] [facility], [facility] [address], [place], [place], [address], [place]. tel:[phone] [facility], [address] [address], [place], [address], [place] tel:[phone] [facility] No Information 2 Shaun Castellanos. [address] [place] [address], [facility] [address], [place], [place], [address], [place]. tel:[phone] Offic/outpt E&m Estab Mod-hi 2 [facility] [place], [address] [address], [place], [address], [place] tel:[phone] [facility] GI Symptoms or Concerns (chief complaint) Recurrent Clostridium difficile diarrheaPerso nal history of colon cancerEssenti al (primary) hypertension Sep- 2 Theodore Baeza. [address] [facility], [facility] [address], [place], [place], [address], [place]. tel:[phone] Referring Provider: Jasmin Lopez, [address] [facility] [address], [facility] [place], [address] . tel:[phone] [facility], [address] [address], [place], [address], [place] tel:[phone] [facility] No Information Dec- 2 Arcadio Verduzco. [address] [facility], [facility] [address], [place], [address], [place]. tel:[phone] [facility] [place], [address] [address], [place], [address], [place] tel:[phone] [facility] Recurrent Clostridium difficile diarrhea 2 Luca Villalta. [address] [facility], [facility] [address], [place], [place], [address], [place]. tel:[phone] Subsqt Hosp-da E&m Minr Compl [facility] [place], [address] [address], [place], [address], [place] tel:[phone] [facility] No Information 2 Shaun Castellanos. [address] [facility], [facility] [address], [place], [address], [place]. tel:[phone] Referring Provider: Herev Ramirez, [address], [place], [address] . tel:[phone] Init Hosp-da E&m Mod Severity [facility] [place], [address] [address], [place], [address], [place] tel:[phone] [facility] No Information 2 Luca Villalta. [address] [facility], [address], [place], [place], [address], [place]. tel:[phone] Referring Provider: Gavin OBRIEN, [address] [place] [address], [address]. tel:[phone] [facility], [address] [address], [place], [address], [place] tel:[phone] [facility] No Information 2 Genna Parks. [address] [facility], [facility] [address], [place], [address], [place]. [phone] Telephone E&M II 11-20 Min ANSELMO [facility], [address] [address], [place], [address], [place] tel:[phone] [facility] GI Symptoms or Concerns (chief complaint) Right upper quadrant abdominal painPersonal history of colon cancer 1 Kofi Jeter. [address] [facility], [facility] [address], [place], [address], [place]. [phone] Referring Provider: Milind Matias MD, [address] [facility] [address], [place], [address] . tel:[phone] [facility], [address] [address], [place], [address], [place] tel:[phone] [facility] No Information 1 Edwar Rosas. [address] [facility], [facility] [address], [place], [place], [address], [place]. tel:[phone] [facility], [address] [address], [place], [address], [place] tel:[phone] [facility] No Information 0 Lorena Baez. [address] [facility], [facility] [address], [place], [place], [address], [place]. tel:[phone] Subsqt Hosp-da E&m Minr Compl [facility], [address] [address], [place], [address], [place] tel:[phone] [facility] No Information 2 0 Kate Nugent. [address] [facility], [address], [place], [place], [address], [place]. tel:[phone] Referring Provider: Jovanna Crowley, [address] [facility] [address], [place], [address] . tel:[phone] [facility], [address] [address], [place], [address], [place] tel:[phone] [facility] Generalized abdominal pain 0 Lorena Baez. [address] [facility], [address], [place], [place], [address], [place]. tel:[phone] Init Hosp-da E&m Mod Severity [facility], [address] [address], [place], [address], [place] tel:[phone] [facility] No Information 0 Lorena Baez. [address] [facility], [address], [place], [place], [address], [place]. [phone] Referring Provider: Nestor Carrillo MD, [address] [facility] [address], [place], [address] . tel:[phone] [facility], [address] [address], [place], [address], [place] tel:[phone] [facility] No Information 0 Genna Parks. [address] [facility], [address], [place], [place], [address], [place]. tel:[phone] [facility], [address] [address], [place], [address], [place] tel:[phone] [facility] No Information 8 Theodore Baeza. [address] [facility], [facility] [address], [place], [place], [address], [place]. tel:[phone] Referring Provider: Courtney Cervantes, [address] [place] [address], [address]. tel:[phone] Init Inpt Cons New/est Mod-hi [facility], [address] [address], [place], [address], [place] tel:[phone] [facility] No Information 8 Edwar Rosas. [address] [facility], [facility] [address], [place], [address], [place]. tel:[phone] Referring Provider: Courtney Cervantes, [address] [place] [address], [address]. tel:[phone] Subsqt Hosp-da E&m Minr Compl [facility], [address] [address], [place], [address], [place] tel:[phone] [facility] No Information 7 No Information Referring Provider: Courtney Cervantes, [address] [place] [address], [address]. tel:[phone] Init Hosp-da E&m Mod Severity [facility], [address] [address], [facility] [place], [address], [place] tel:[phone] [facility] No Information 7 Theodore Baeza. [address] [facility], [facility] [address], [place], [place], [address], [place]. tel:[phone] Referring Provider: Courtney Cervantes, [address] [place] [address], [address]. tel:[phone] [facility], [address] [address], [place], [address], [place] tel:[phone] [facility] No Information 7 Arcadio Verduzco. [address] [facility], [facility] [address], [place], [address], [place]. tel:[phone] Referring Provider: Courtney Cervantes, [address] [place] [address], [address]. tel:[phone] [facility] [place], [address] [address], [place], [address], [place] tel:[phone] [facility] Adenomatous colon polyp 7 Arcadio Verduzco. [address] [facility], [facility] [address], [place], [address], [place]. tel:[phone] Init Hosp-da E&m Mod Severity [facility] [place], [address] [address], [place], [address], [place] tel:[phone] [facility] No Information 7 No Information Referring Provider: Courtney Cervantes, [address] [place] [address], [address]. tel:[phone] Offic/outpt E&m Estab Low-mod [facility] [place], [address] [address], [place], [address], [place] tel:[phone] [facility] GI Symptoms or Concerns (chief complaint) Adenomatous colon polypAbnormal CT scan, colonFamily history of colon cancer 6 No Information Referring Provider: Courtney Cervantes, [address] [place] [address], [address]. tel:[phone] [facility] [place], [address] [address], [place], [address], [place] tel:[phone] [facility] Colon polyp 6 Esperanza Monsalve. [address] [facility], [facility] [address], [place], [place], [address], [place]. tel:[phone] Offic/outpt E&m Estab Mod-hi 2 [facility] [place], [address] [address], [place], [address], [place] tel:[phone] [facility] GI Symptoms or Concerns (chief complaint) Colon polypDietary counseling and surveillanceE levated blood-pressur e reading, w/o diagnosis of htn 6 Ernesto Mosquera. [address] [facility], [address], [place], [place], [address], [place]. tel:[phone] Referring Provider: Referral Self, USE FOR SELF REFERRALS. Offic/outpt E&m Estab Minor [facility], [address] [address], [place], [address], [place] tel:[phone] [facility] GI Symptoms or Concerns (chief complaint) Colon polypFamily history of cancer of gastrointesti nal tractDietary Surveil/couns el 4 No Information Referring Provider: Courtney Cervantes, [address] [place] [address], [address]. tel:[phone] Subsqt Hosp-da E&m Minr Compl [facility], [address] [address], [place], [address], [place] tel:[phone] [facility] No Information No Information Referring Provider: Kayla Crowley, [address] [place] [address], [place], [address]. tel:[phone] [facility] [place], [address] [address], [place], [place], [address], [place] tel:[phone] [facility] No Information Gonzalo Gibson. [address] [facility], [facility] [address], [place], [place], [address], [place]. tel:[phone] Referring Provider: Kayla Crowley, [address] [place] [address], [place], [address]. tel:[phone] Init Hosp-da E&m Mod Severity [facility] [place], [address] [address], [place], [address], [place] tel:[phone] [facility] No Information No Information Referring Provider: Kayla Crowley, [address] [place] [address], [place], [address]. tel:[phone] Family History Family Member Type Diagnosis Age [...] Registry Payers Payer name Insurance type Covered libertarian ID Authoriza tion(s) Medicare NGS MB [id number] [employer] [id number] Social History Type Description Quantity Date Captured [...] last positive testing was in July in [place] he tells me. I actually do not [...] had a positive C diff test in [place] in September of 2021, not clear which [...] pat ient is a 46-year-old male from [place], [place], seen in clinic again today to [...] mynor ent is a 45-year-old male from [facility] seen today in followup regarding a colon [...] mynor ent is a 44-year-old male from [facility] seen today in followup regarding a colon [...] cancer we will send you to a foreign clerk to discuss taking some blood for gene [...] daily for 14 days. 2. Referral to [facility] for IMT capsules. 3. Follow-up colonoscopy as already ordered. 4. Return to clinic in 4 months. 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 Will need to be done at [facility] with admit day before because of past [...]
--- OUTSIDE RECORDS SUMMARY | 2024-06-08 18:03 | XMS_ITS | Encounter Summary ---
Author Organization [facility] Address [address] [facility] [place] [address] Care Team Providers Care Grinding Wheel Facer Name Role Phone Courtney Guardado MD Primary Care Provider [phone] Gavin Lombardo Primary Care Provi moses Kedar Dang MD Unavailable [phone] Rosamaria Garcia PA-C Primary Care Provider [phone] Reason for Visit * Reason Onset Date Comments Appointment 07/19/2017 called and left patient message related to missed appointment for today Encounter Details Date Type Department Care Team (Late st Contact Info) Description 07/19/2017 Telephone [facility] [address] [place] [address] Carla Zambrano RN Appointment (called and left [...] on file 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 Gender Identity Not on file Sexual Orientation Not on file documented as of this encounter Plan of Treatment Upcoming Encounters Date Type Department Care Team (Late Contact Info) Description 06/19/2024 8:00 AM LABORATORY TECH Hospital Encounter [facility] [address] [place] [address] Hugo Sainz MD [facility] [address] [place] [address] documented as of this encounter Visit Diagnoses Not on filedocumented in this encounter Care Teams Grinding Wheel Facer Relationship Specialty Start Date End Date Courtney Guardado MD PCP - General 03/09/12 07/30/20 Gavin Lombardo PA PCP - General Family Practice 07/31/20 12/14/23 Rosamaria Garcia PA-C [address] [place] [address] PCP - General 12/15/23 [place] [address] [facility] [address] Assigned Gastroenterology Provider 01/29/23 documented as of this encounter
== END 2024-06-08 18:05 | disposition home or self-care (01) ==
LOC: ED 18:00
PROVIDERS: Emergency Provider Emergency Medicine Emergency Medical Services; PCP Physician Assistant
DX: T82.838A Hemorrhage due to vascular prosthetic devices, implants and grafts, initial encounter (principal)
CPT/HCPCS: 12001; 99283; 99284

== ENCOUNTER 2024-07-12 10:51 | Outpatient (CLI) | payer MEDICARE, SELFPAY | END 2024-07-12 10:52 | disposition home or self-care (01) | LOC: AMB 07-13 09:47 | PROVIDERS: PCP Physician Assistant; Visit Provider Emergency Medicine Emergency Medical Services | DX: T82.838A Hemorrhage due to vascular prosthetic devices, implants and grafts, initial encounter (principal) | CPT/HCPCS: A0425; A0429 ==

== ENCOUNTER 2024-07-12 11:14 | Emergency (ER) | payer MEDICARE, SELFPAY ==
[2024-07-12 11:15] VITALS: BP 148/98; PULSE 113; RESP 20; TEMP 37.1; O2SAT 94; BMI 22.3
--- OUTSIDE RECORDS SUMMARY | 2024-07-12 11:16 | XMS_ITS | Encounter Summary ---
Author Organization [facility] Address [address] [facility] [place] [address] Care Team Providers Care Hydraulic Engineer Name Role Phone Kedar Tello MD Unavailable [phone] Rosamaria Garcia PA-C Primary Care Provider [phone] Encounter Details Date Type Department Care Team (Late st Contact Info) Description 06/19/2024 8:00 AM FLOOR MOLDER Hospital Encounter [facility] [address] [place] [address] Hugo Sainz MD [facility] [address] [place] [address] Social History Tobacco Use Types Packs/Day Years [...] on file Legal Sex Male 5:19 AM FLOOR MOLDER Gender Identity Not on file Sexual Orientation Not on file documented as of this encounter Plan of Treatment Not on file documented as of this encounter Visit Diagnoses Not on filedocumented in this encounter Care Teams Hydraulic Engineer Relationship Specialty Start Date End Date Rosamaria Garcia PA-C [address] [place] [address] PCP - General 12/15/23 [place] [address] [place] [address] Assigned Gastroenterology Provider 01/29/23 documented as of this encounter
--- OUTSIDE RECORDS SUMMARY | 2024-07-12 11:16 | XMS_ITS ---
Author Organization [facility] Address [address] [place] [address] Care Team Providers Care Staff Antisubmarine Officer Name Role Phone Elsewhere, Pcp Primary Care [...] M, W, F with Dr. Brown in [place]. 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 LAB BLOOD ADD-ON Final Result [facility] [address] [place] [address], [facility] DTL [facility] [address] [place] [address] * Hemoglobin A1c (08/05/2017 6:18 AM CDT) Hemoglobin A1c, B 5.2 4.2 - 5.6 % 08/08/2017 1:52 AM CDT [facility] Blood (Blood, Venous) 08/05/2017 6:18 AM CDT 08/07/2017 11:47 PM CDT us Cholo Hooks LAB BLOOD ADD-ON Final Re sult [facility] [address] [place] [address], [facility] from Last 3 Months or Most Recently Relevant to Health Maintenance
--- OUTSIDE RECORDS SUMMARY | 2024-07-12 11:16 | XMS_ITS | Encounter Summary ---
Author Organization [place] Address [address] [facility] [place] [address] Care Team Providers Care Actuarial Science Teacher Name Role Phone Kedar Tello MD Unavailable [phone] Rosamaria Garcia PA-C Primary Care Provider [phone] Reason for Visit * Auth/Cert (Routine) Specialty Diagnoses / Procedures Referred By Contaly t Referred To Contact Radiology. [facility] [address] [place] [address] Phone: tel: fax: Referral ID Status Reason Start Date Expiration Date Visits Re quested Visits Authorized [id number] 1 1 Encounter Details Date Type Department Care Team (Late st Contact Info) Description 04/24/2024 8:00 AM SKI PRODUCTION SUPERVISOR Hospital Encounter [facility] [address] [place] [phone] Gio Dubon MD [facility] [address] [place] [address] Social History Tobacco Use Types Packs/Day Years [...] on file Legal Sex Male 5:19 AM SKI PRODUCTION SUPERVISOR Gender Identity Not on file Sexual Orientation Not on file documented as of this encounter Plan of Treatment Not on file documented as of this encounter Visit Diagnoses Not on filedocumented in this encounter Care Teams Actuarial Science Teacher Relationship Specialty Start Date End Date Rosamaria Garcia PA-C [address] [place] [address] PCP - General 12/15/23 [place] [address] [place] [address] Assigned Gastroenterology Provider 01/29/23 documented as of this encounter
--- OUTSIDE RECORDS SUMMARY | 2024-07-12 11:16 | XMS_ITS | Clinical Summary ---
Author Organization [facility] Address [address] [place] [address] Care Team Providers Care Instant Printer Operator Name Role Phone Elsewhere, Pcp Primary Care Provider Unavailabl e Source Comments Patient records contain information from all sites at [facility]. For routine questions regarding patient records, call [phone] during business hours, M-F 8:00 AM - 5:00 PM Central Time. Record requests for emergency care only can be directed to [phone] at any time.[facility] Allergies Active Allergy Reactions Criticality Noted [...] M, W, F with Dr. Brown in [place]. 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 Gender Identity Not on file Sexual [...] Hepatitis B Vaccines Completed 09/17/2021, 04/03/2021, 07/11/2020 Hepatitis B Screening Discontinued 12/25/2021 , 11/26/2021, 07/23/2021, Additional history exists IPV Vaccines Aged Out No longer eligi [...] BLOOD ADD-ON Final Result Performing Organization Address City/[facility]/ZIP Co de Phone Number [facility] [address] [place] [address], [facility] DTL [facility] [address] [place] [address] * Hemoglobin A1c (08/05/2017 6:18 AM CDT) Hemoglobin A1c, B 5.2 4.2 - 5.6 % 08/08/2017 1:52 AM CDT [facility] Blood (Blood, Venous) 08/05/2017 6:18 AM CDT 08/07/2017 11:47 PM CDT Cholo Hooks LAB BLOOD ADD-ON Final Re sult Performing Organization Address City/[facility]/ZIP Co de Phone Number [facility] [address] [place], [place] [address] [place] [address] from Last 3 Months or Most Recently Relevant to Health Maintenance Insurance MEDICARE MEDICA Advance Directives For more information, please contact: [phone] * Full Code (Latest Code Status on [...] Answer Comments Full Code: Discussed Care Teams Instant Printer Operator Relationship Specialty Start Date End Date Elsewhere, Pcp PCP - General 07/29/20
--- OUTSIDE RECORDS SUMMARY | 2024-07-12 11:16 | XMS_ITS | Encounter Summary ---
Author Organization [place] Address [address] [facility] 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 The following was left on VM: Date: 06/19/24 Procedure: Fistulogram Address: [facility] [address] [facility] [address] Check into the Interventional Radiology Department at: 8:00 am Do not eat anything after midnight the night prior to the day of your procedure. You may have sips of clear liquids up until 2 hours prior to arrival for appointment. We suggest wearing loose, comfortable clothing. Two visitors may accompany you to your procedure. You are required to have someone available to drive you home. We recommend a responsible adult stay with you for 6 hours after discharge to home. Please bring a list of your current medications. Morning medications may be taken on the day of your procedure with sips of clear fluids (do not eat). Please plan for 2-3 hours spent in the Interventional Radiology Department. This will include: Pre-procedure Time Procedure Time Recovery Time. If you have any questions, please call the Interventional Radiology team at [phone]. Thank you! Ramiro Tucker Interventional Radiology Intake Nurse Coordinator [phone] PMENT DRIVER documented in this encounter Plan of Treatment Not on file documented as of this encounter Visit Diagnoses Not on filedocumented in this encounter Care Teams Head Mechanic Relationship Specialty Start Date End Date Rosamaria Garcia PA-C [address] [place] [address] PCP - General 12/15/23 [place] [address] [address] [address] Assigned Gastroenterology Provider 01/29/23 documented as of this encounter
--- OUTSIDE RECORDS SUMMARY | 2024-07-12 11:16 | XMS_ITS | Encounter Summary ---
Author Organization [place] Address [address] [facility] [place] [address] Care Team Providers Care Insurance Sales Professional Name Role Phone Gavin Lombardo Primary Care Provi moses Unavailable Kedar Tello MD Unavailable Rosamaria Garcia PA-C Primary Care Provider [phone] Encounter Details Date Type Department Care Team (Late st Contact Info) Description 08/24/2021 External Order Results [facility] [address] [place] [address] Outside, Provider Social History Tobacco Use Types Packs/Day Years Used Date Smoking Tobacco: Every Day Cigarettes 0.5 27 Smokeless Tobacco: Never Alcohol Use Standard Drinks/Week Comments Yes 0 (1 standard drink = 0.6 oz pur e alcohol) occ. 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 No / Unsure 08/27/2021 8:00 AM CDT documented as of this encounter Plan of Treatment Not on file documented as of this encounter Procedures Procedure [...] on filedocumented in this encounter Care Teams Insurance Sales Professional Relationship Specialty Start Date End Date Gavin Lombardo PA PCP - General Family Practice 07/31/20 12/14/23 Rosamaria Garcia PA-C [address] [place] [address] PCP - General 12/15/23 [place] [address] [place] [address] Assigned Gastroenterology Provider 01/29/23 documented as of this encounter
--- OUTSIDE RECORDS SUMMARY | 2024-07-12 11:16 | XMS_ITS | Encounter Summary ---
Author Organization [place] Address [address] [facility] [place] [address] Care Team Providers Care Urologic Surgeon Name Role Phone Courtney Guardado MD Primary Care Provider [phone] Gavin Lombardo Primary Care Provi moses Kedar Dang MD Unavailable [phone] Rosamaria Garcia PA-C Primary Care Provider [phone] Encounter Details Date Type Department Care Team (Late st Contact Info) Description 05/24/2018 External Order Results [facility] [address] [place] [address] Outside, Provider Social History Tobacco Use Types Packs/Day Years Used Date Smoking Tobacco: Every Day Cigarettes 0.5 27 Smokeless Tobacco: Never Alcohol Use Standard Drinks/Week Comments Yes 0 (1 standard drink = 0.6 oz pur e alcohol) occ. 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 Gender Identity Not on file Sexual Orientation Not on file documented as of this encounter Plan of Treatment Not on file documented as of this encounter Visit Diagnoses Not on filedocumented in this encounter Care Teams Urologic Surgeon Relationship Specialty Start Date End Date Courtney Guardado MD PCP - General 03/09/12 07/30/20 Gavin Lombardo PA PCP - General Family Practice 07/31/20 12/14/23 Rosamaria Garcia PA-C [address] [place] [address] PCP - General 12/15/23 [place] [address] [place] [address] Assigned Gastroenterology Provider 01/29/23 documented as of this encounter
--- OUTSIDE RECORDS SUMMARY | 2024-07-12 11:17 | XMS_ITS | Data Portability ---
Author Organization [place] [facility] Address [address] [place] [address] Care Team Providers Care Automobile Repair Service Estimator Name Role Phone BRITTA RAMOS Primary Care Provider [phone] Assessment No assessment recorded. Plan of Treatment Reminders Order Date Submit Date Provider Last Modified By Organization Details Last Modified Time Details Appointments None recorded. Lab urinalysis , dipstick 2023 024 [email or web address] 9 [facility], [address] [facility], [address], [place], [address], 11:43:13 Referral None recorded. Procedures None recorded. Surgeries None recorded. Imaging None recorded. Medication Orders None recorded. Patient TargetsNo targets recorded. Patient Instructions Encounter Date Encounter Id Patient Instructions Last Modified By Organization Details Last Modified Time 09/29/2023 [id number] will set up for cysto possible bladder biopsy/fulguratio n. [email or web address] Not available 09/29/2023 11:42:13 Reason for Referral None Reported. Results Created Date Observation Date Name Description Value Unit Range Abnormal Flag Note LastModifiedBy Organization Detail LastModifiedTime 09/29/19 24 09/29/2023 urina lysis , dipst ick pH-Status 8.5 Not Available [facility] [address] [facility] [address], [place], [address], 09/28/2023 18:15:50 09/29/19 24 09/29/2023 urina lysis , dipst ick Blood-Status Small Not Available [facility] [address] [facility] [address], [place], [address], 09/28/2023 18:15:50 Result Notes None recorded. Procedures Surgical History Date Name Laterality Status Provider Name and Address Organization Details Recorded Time Eye surgery follow-up add-on completed Juan Francisco Don MD [address] [facility],[address], [place], [address], [facility] Urology 09/29/2023 11:31:24 Imaging Results None recorded. Procedure Notes None recorded. Medical Equipment None Reported. Allergies Allergen ID Allergen Name Allergen Category Reaction Reaction Severity Criticality Documentation Date Start Date Code Code System Note Provider Name and Address Organization Details Recorded Time 097551 Product containin g penicilli n (product) medicatio n Not available Not available Not available 09/29/2023 27045 8001 SNOMED Not Available Not Available Not Available 686930 lisinopri l medicatio n Not available Not available Not available 09/29/2023 41483 RxNorm Not Available Not Available Not Available 665135 Dilaudid medicatio n Not available Not available Not available 09/29/2023 05993 3 RxNorm Not Available Not Available Not [...] Updated DateTime 09/29/2023 165.1 cm 23.8 kg/m2 58680.71 g Juan Francisco Don MD [address] [place] [address],[address], [address] [place] [address] Urology 09/29/2023 11:26:30 Social History Question Answer Notes LastModified by Organizat ion Details LastModified Time Tobacco Smoking Status Former Smoker Juan Francisco Don MD [address] [place] [address],[address], [address] [place] [address] Urology 09/29/2023 11:30:13 What Is Your Level Of Alcohol Consumption? None [email or web address] Information not available 09/29/2023 What Is Your Level Of Caffeine Consumption? Occasional [email or web address] Information not available 09/29/2023 When Did You Quit Smoking? 1-5yearssinjuve moreno [email or web address] Information not available 09/29/2023 What Was The Date Of Your Most Recent Tobacco Screening? 09/29/2023 [email or web address] Information not available 09/29/2023 Sex: Unknown Functional Status None recorded. Mental Status None recorded. Family History Relationship Description Onset Age of this Age Resolved Age Notes LastModified by Organization Details LastModified Time Mother Family history of malignant neoplasm [email or web address] Not available 09/28 11:29:42 Mother Family history of diabetes mellitus [email or web address] Not available 09/28 11:29:52 Sister Family history of malignant neoplasm [email or web address] Not available 09/28 11:29:42 Sister Family history of diabetes mellitus [email or web address] Not available 09/28 11:29:52 Medical History Condition Response Diabetes N Sexually Transmitted Infection N Other N Bleeding Disorder N High Blood Pressure N Kidney Stones N High Cholesterol N GERD/Acid Reflux N Heart Disease N Cancer Y Lung Disease N Depression N Past Encounters Encounter ID Performer Location Encounter Start Date Encounter Closed Date Diagnosis/Indication Diagnosis SNOMED-CT Code Diagnosis ICD10 Code Diagnosis Note [id number] Juan Francisco Don MD [facility] [address] [facility],[address] [place] [address] 09/29/2023 11:15:44 10/06/2023 14:11:40 Microscopic hematuria 235610617 R31.29 bladder wall thickening . Health Concerns Section Related Observation LastModified by Organization Detai ls LastModified Time None Recorded Concern Status LastModified by Organization Details LastModified Time None Recorded Advance Directives Directive None Recorded Payers Encounter Date Sequence Insurance Name Policy Number Policy Burleson Covered Member ID Burleson Member ID Guarantor Name 09/29/2023 1 [place]ICARE [place]: [employer] [facility] Vik Thakkar [id number] Vik Thakkar 09/29/2023 2 [place] Vik Thakkar [id number] Vik Thakkar Notes Date Note Type Note [...] from DM Juan Francisco Don MD [address] [facility],[address], [place], [address], [facility] Urology 09/29/2023 11:43:29
--- OUTSIDE RECORDS SUMMARY | 2024-07-12 11:17 | XMS_ITS | Encounter Summary ---
Author Organization [place] Address [address] [facility] [place] [address] Care Team Providers Care Fare Collector Name Role Phone Courtney Guardado MD Primary Care Provider [phone] Gavin Lombardo Primary Care Provi moses Kedar Dang MD Unavailable [phone] Rosamaria Garcia PA-C Primary Care Provider Reason for Visit * Reason Onset Date Comments Appointment 07/19/2017 called and left patient message related to missed appointment for today Encounter Details Date Type Department Care Team (Late st Contact Info) Description 07/19/2017 Telephone [facility] [address] [place] [address] Carla Zambrano, JASMIN Appointment (called and left patient message related [...] on file 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 Gender Identity Not on file Sexual Orientation Not on file documented as of this encounter Plan of Treatment Not on file documented as of this encounter Visit Diagnoses Not on filedocumented in this encounter Care Teams Fare Collector Relationship Specialty Start Date End Date Courtney Guardado MD PCP - General 03/09/12 07/30/20 Gavin Lombardo PA PCP - General Family Practice 07/31/20 12/14/23 Rosamaria Garcia PA-C [address] [place] [address] PCP - General 12/15/23 [place] [address] [facility] [address] Assigned Gastroenterology Provider 01/29/23 documented as of this encounter
--- OUTSIDE RECORDS SUMMARY | 2024-07-12 11:17 | XMS_ITS | Clinical Summary ---
Author Organization [place] Address [address] [facility] [place] [address] Care Team Providers Care Strategic Marketing Associate Name Role Phone Kedar Tello MD Unavailable [phone] Rosamaria Garcia PA-C Primary Care Provider [phone] Allergies Active Allergy Reactions Criticality Noted Date [...] mg by mouth every morning Active B rjayxxi-I-kyeud acid (NEPHROCAPS) 1 MG capsule Take 1 [...] Encounters Date Type Department Care Team Description 06/19/2024 8:00 AM SYNTHETIC CHEMIST Hospital Encounter [facility] [address] [place] [address] Hugo Sainz MD 06/18/2024 Telephone [facility] [address] [place] [address] Bravo Moran RN 04/24/2024 8:00 AM SYNTHETIC CHEMIST Hospital Encounter [facility] [address] [place] [address] Gio Dubon MD 04/17/2024 Telephone [facility] [address] [place] [address] Ekta Fernandes, JASMIN from Last 3 Months Family History Medical [...] on file 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 Gender Identity Not on file Sexual Orientation [...] 02/15/2023 8:55 AM CDT Plan of Treatment Health Maintenance Due [...] Basic metabolic panel (08/11/2023 8:56 AM CDT) Sodium 138 135 - 145 mmol/L 08/11/2023 [...] LAB - BLOOD ORDERAB LES Final Result [facility] Lab [address] [facility] Lab (1st floor, no room number) [place] [address], [facility] from Last 3 Months or Most Recently Relevant to Health Maintenance Insurance [employer] [employer] MEDICARE ADVANTAGE [place] [employer] MEDICARE ADVANTAGE Care Teams Strategic Marketing Associate Relationship Specialty Start Date End Date Rosamaria Garcia PA-C [address] [place] [address] PCP - General 12/15/23 [place] [address] [place] [address] Assigned Gastroenterology Provider 01/29/23
--- OUTSIDE RECORDS SUMMARY | 2024-07-12 11:17 | XMS_ITS | Clinical Summary ---
Author Organization [facility] Address [facility] [place] [address] Care Team Providers Care Veterinary Milk Specialist Name Role Phone Radha Baires PLATEMAKER Unavailable Unavailable Rosamaria Dunn Unavailable Unavailable Alison Otto DIRECTOR ENTER[employer] DATA ARCHITECTURE Unavailable [phone] Christopher Collins MBBS Unavailable [phone] Nik Flores DRY MAN Unavailable Rosamaria Garcia Primary Care Provider [phone] Allergies Active Allergy Reactions Criticality Noted Date [...] times daily with meals. 08/30/19 22 Active polyethylene glycol (Miralax) 17 g per packet packet Mix 17 g in liquid then take by mouth once daily if needed for Constipation. Active aspirin (ECOTRIN) 81 mg enteric coated tabletIndications :Chronic ischemic heart disease, unspecified Take 1 Tablet (81 mg) by mouth once daily with a meal. 0 12/18/19 23 Active famotidine (PEPCID) 20 mg tabletIndications [...] miting 30 Tablet 1 03/01/20 24 Active tiZANidine (ZANAFLEX) 2 mg tabletIndications :Muscle spasm TAKE 1 TABLET UP TO 2 TIMES DAILY IF NEEDED FOR MUSCLE SPASM 60 Tablet 2 03/26/20 24 Active dicyclomine (BENTYL) 20 mg tabletIndications :Irritable bowel syndrome with both constipation and diarrhea Take 1 tablet up to 2 times a day for IBS cramping/pain 60 Tablet 2 05/31/19 25 Active diclofenac topical (VOLTAREN) 1 % gelIndications:Bi lateral hand pain Apply 2 g up to bid for hand pain 450 g 2 06/04/19 25 Active oxyCODONE 10 mg tabletIndications :Controlled substance agreement signed,Lumbar foraminal stenosis,Chronic pain of both shoulders,Chronic thoracic back pain, unspecified back pain laterality Take 1.5 Tablets (15 mg) by mouth four times daily. 180 Tablet 07/04/19 25 Active cefuroxime axetil (CEFTIN) 250 mg tabletIndications :Microhematuria Take 1 Tablet (250 mg) by mouth for 3 doses. Take at the end of each dialysis on Tuesday//Tuesday 3 Tablet 5 1:19 PM SECOND OPERATOR 07/07/19 25 2024 Active atorvastatin (LIPITOR) 40 mg tabletIndications :Other hyperlipidemia Take 1 Tablet (40 mg) by mouth once daily with evening meal. 90 Tablet 3 07/13/19 25 Active ferric citrate (Auryxia) 210 mg iron tab Take 210 mg by mouth 2 times daily if needed (with snacks). 2024 Discontin ued(Dupli tru therapy (E-cancel not sent)) bisacodyL (DULCOLAX) 10 mg suppositoryIndica tions:Constipatio n due to opioid therapy Insert 1 Suppository (10 mg) rectally once daily if needed for Constipation. 8 Suppository 3 12/21/19 23 2024 Discontin ued(*Fior ent states no longer taking) atorvastatin (LIPITOR) 40 mg tabletIndications :Other hyperlipidemia TAKE ONE TABLET (40 MG) BY MOUTH AT BEDTIME. 90 Tablet 2 03/23/20 24 2024 Discontin ued(*Ifor ent states no longer taking) escitalopram oxalate (LEXAPRO) 5 mg tabletIndications :CHIQUIS (generalized anxiety disorder) Take 1 Tablet (5 mg) by mouth once daily in the morning. 90 Tablet 3 04/17/20 24 2024 Discontin ued(*Fior ent states no longer taking) oxyCODONE 10 mg tabletIndications :Controlled substance agreement signed,Lumbar foraminal stenosis,Chronic pain of both shoulders,Chronic thoracic back pain, unspecified back pain laterality Take 1.5 Tablets (15 mg) by mouth four times daily. 180 Tablet 06/03/19 25 2024 Discontin ued(Reord er (E-cancel not sent)) cefuroxime axetil (CEFTIN) 250 mg tabletIndications :Microhematuria Take 1 Tablet (250 mg) by mouth once daily for 5 days. 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 Courtney Guardado MD 2013 [...] Assessment & Plan: ESRD Stable Dialysis at: [facility] on: MWF via fistula Diet: Renal, [...] with patient to get the information from [facility]. Plan Continue therapy Continue follow up SW regarding transplant process Blood in stool 08/09/2013 [...] M, W, F with Dr. Brown in [place]. Dependence on renal dialysis 06/08/2011 08/23/2019 Overview (09/21/2017): Overview: Overview: Dialysis M, W, F with Dr. Brown in [place]. ACP (advance care planning) 03/14/2011 05/11/2023 Overview (03/14/2011): Patient has identified Health Care Agent(s): Patient verbally identifies his significant other as health care decision maker however, she does not have a phone number at present. To contact Patient's family/SO contact can be made with Abhay Tovar (brother in law) [phone] and Thomas Carloz [phone] Friend Patient has Advance Care Plan Documents [...] Encounters Date Type Department Care Team Description 07/11/2024 Telephone [facility] [address] [place] [address] Rosamaria Garcia PA Medication Management (atorvastatin (LIPITOR) 40 mg tablet) 07/09/2024 Patient Outreach [facility] [address] [place] [address] Sobeida Prasad, RN Student Primary RN Care Management; Hospital F/U (Lace=20) 07/05/2024 3:45 PM SECOND OPERATOR - 07/05/2024 4:40 PM SECOND OPERATOR Surgery [address] [place] [address] Juan Francisco Dno MD CYSTOSCOPY 07/05/2024 3:18 PM SECOND OPERATOR [address] [address] Mejia Carrera MD 07/05/2024 1:28 PM SECOND OPERATOR - 07/06/2024 1:31 PM SECOND OPERATOR [facility] [address] [address] Juan Francisco Don MD Vanderloo, Matthew Robert, MD Microhematuria (Primary Dx); ESRD on hemodialysis (HC) Discharge Disposition: Home Self Care 07/05/2024 Travel 07/03/2024 3:35 PM SECOND OPERATOR Office Visit [facility] [address] [place] [address] Olivier Phillips MD Preoperative Exam (Cystoscopy 07/05) 07/03/2024 11:50 AM SECOND OPERATOR Office Visit [facility] [address] [address] Jasmin Pugh PA Derm Problem (lesions) 07/03/2024 Travel 06/29/2024 Refill [facility] [address] [place] [address] Rosamaria Garcia PA Refill Request (oxyCODONE 10 mg tablet) 06/04/2024 8:50 AM SECOND OPERATOR Office Visit [facility] [address] [place] [address] Rosamaria Garcia PA Hand Pain/problem (Bilateral hand and foot pain-arthritis pain) 06/04/2024 Travel 05/31/2024 Refill [facility] [address] [place] [address] Rosamaria Garcia PA Refill Request (oxyCODONE 10 mg tablet) 05/30/2024 Refill [facility] [address] [place] [address] Rosamaria Garcia PA Refill Request (Dicyclomine) 05/30/[address] [address] Rosamaria Garcia PA Medication Management (dicyclomine (BENTYL) 20 mg tablet) 05/30/2024 Telephone [facility] [address] [place] [address] Rosamaria Garcia PA Results 05/29/2024 2:50 PM SECOND OPERATOR Office Visit [facility] [address] [place] [address] Rosamaria Garcia PA Preoperative Exam (Dr. Florencia Young-cystoscopy) 05/29/2024 Travel 05/25/2024 Travel 05/21/2024 Telephone [facility] [address] [place] [address] Rosamaria Garcia PA Error-please disregard 05/21/2024 Nurse Triage [facility] [address] [place] [address] Rosamaria Garcia PA Musculoskeletal Problem 05/01/2024 Telephone [facility] [address] [place] [address] Rosamaria Garcia PA Refill Request (oxycodone) 04/20/2024 Telephone [facility] [address] [place] [address] Rosamaria Garcia PA Results 04/17/2024 9:50 AM SECOND OPERATOR Office Visit [facility] [address] [place] [address] Rosamaria Garcia PA Follow Up (Needs a new referral for urology to get scope done) 04/17/2024 Travel from Last 3 Months Immunizations Immunization Administration Dates Next Due COVID-19 vaccine (Moderna [...] Cigarettes 0.3 30 0 10/30/1980 - 10/30/2010 Passive Smoke Exposure: Past Smokeless Tobacco: Never Tobacco Cessation:Counseling Given: Not [...] or isolated from those around you? 0 07/05/2024 Financial Resource Strain Answer Date R ecorded Difficulty of Paying Living Expenses 3 09/13/2023 Difficulty of Paying Living Expenses Not on file 09/13/2023 Food Insecurity Answer Date Recorded Do you worry your food will run out before you are able to buy more? 1 07/05/2024 Transportation Needs Answer Date Record ed Does lack of transportation keep you from medica l appointments? 1 07/05/2024 Does lack of transportation keep you from work, meetings or getting things that you need? 1 07/05/2024 Housing Stability Answer Date Recorded What is your housing situation today? 1 07/05/2024 Interpersonal Safety Answer Date Record ed Are you being hit, kicked, p ushed or yelled at (see row info)? No 07/05/2024 Interpersonal Safety Abuse 12 - 18 Not on file 07/05/2024 Interpersonal Safety Ambulatory Vulnerability No t on file 07/05/2024 Utilities Answer Date Recorded Do you have trouble paying f or utilities (for example, heat, electricity, water, phone)? 1 07/05/2024 Sex and Gender Information Value Date Recorded Sex Assigned at Not on file Legal Sex Male 5:23 AM SECOND OPERATOR Gender Identity Not on file Sexual Orientation Not on file Occupation Industry Job Start Date Job End Date unempolyed Not on file Not on file Not on file Obstetrics History Last Filed Vital Signs Vital Sign Reading Time Taken Comments Blood Pressure 185/77 07/06/2024 12:00 PM SECOND OPERATOR Pulse 80 07/06/2024 12:00 PM SECOND OPERATOR Temperature 36.3 C (97.4 F) 07/06/2024 12:00 AM SECOND OPERATOR Respiratory Rate 18 07/06/2024 4:00 AM SECOND OPERATOR Oxygen Saturation 100% 07/06/2024 12:00 PM SECOND OPERATOR Inhaled Oxygen Concentration - - Weight 62.4 kg (137 lb 8 oz) 07/06/2024 6:00 AM SECOND OPERATOR Height 166.4 cm (5' 5.5) 07/05/2024 1:39 PM SECOND OPERATOR Body Mass Index 22.53 07/05/2024 1:39 PM SECOND OPERATOR Plan of Treatment Upcoming Encounters Date Type Department Care Team (Late st Contact Info) Description 07/26/2024 10:30 AM CDT Procedure Only [facility] [address] [address] Dary Longoria MD [address] [id number] Health Maintenance Due Date Last Done Comments Zoster (shingles) series for age 50+ (1 of 2) 2021 Tetanus booster 10/27/2021 10/28/2011 Hepatitis B series for Diabe teri (4 of 4 - Risk Dialysis Recombivax 3-dose series) 09/17/2022 09/17/2021, 04/03/2021, 07/11/2020 COVID-19 vaccine series (3 - 2023- season) 2024 06/23/2020, 05/30/2020 Pneumococcal series for age 50+ (4 of 4 - PCV20 or PCV21) 06/13/2024 06/13/2019, 05/26/2018, 03/17/2011 Depression screening for age 12+ 08/29/2024 08/30/2023, 08/24/2023, 08/23/2023, Additional history exists BMI (ht and wt on same day) for age 18+ 07/03/2025 07/03/2024, 05/29/2024, 10/21/2023, Additional history exists Lipids for age 45-75 04/17/2029 04/17/2024, 08/24/2023, 10/01/2022, Additional history exists Colonoscopy through age 75 12/15/203212/15, 02/04/2017, 10/25/2016, Additional history exists Tdap Completed 10/28/2011 Hepatitis C screening for ag e 18-79 Completed 12/26/2021 HIV for age 15-65 Completed 10/01/2022 Influenza Vaccine Completed 02/15/2024, , 02/05/2022, Additional history exists Goals Goal Patient Goal Type Associated Problems Recent Progress Patient-Stated? Author BLOOD PRESSURE - MAINTAINS BP less than 140/90 Blood Pressure No Juan Francisco Card MD Medical Devices Implanted Type Area Title Closer Device Identifier Shelf Expiration Date Model / Serial / Lot Graft Vasc 8mm 40cm Propaten Thin Wall - [id number] Implanted:Qty: 1 on 04/10/2015 by Ash Zambrano MD at [facility] Left: Arm [employer] 10/23/2018 [id number] # / / Power Port Isp Mri 6fr [id number] - Stan Only - [id number] Implanted:Qty: 1 on 01/27/2017 by Kiet Hernandez DO at [facility] N/A: Chest [employer] 03/01/2018 [id number] / / [id number] Description:PowerPort isp M. R.I. Implantable Port Sys Ancr Sut 4.75mm Biocomposite - [id number] Implanted:Qty: 1 on 10/27/2023 by Milind Arroyo MD at [facility] Right: Shoulder [employer] 06/30/2027 [id number] [facility] / / [id number] Procedures Procedure Name Priority Date/Time Associated Diagnosis Comments GLUCOSE METER Timed 07/06/2024 10:52 AM SECOND OPERATOR GLUCOSE METER Timed 07/06/2024 6:59 AM SECOND OPERATOR HEMOGLOBIN A1C MONITORING (POCT) Early AM 07/06/2024 5:19 AM SECOND OPERATOR GLUCOSE METER Timed 07/05/2024 11:51 PM SECOND OPERATOR GLUCOSE METER Timed 07/05/2024 11:01 PM SECOND OPERATOR GLUCOSE METER Timed 07/05/2024 9:47 PM SECOND OPERATOR POTASSIUM STAT 07/05/2024 9:26 PM SECOND OPERATOR GLUCOSE METER Timed 07/05/2024 8:47 PM SECOND OPERATOR POTASSIUM Timed 07/05/2024 8:12 PM SECOND OPERATOR EKG 12 LEAD STAT 07/05/2024 8:06 PM SECOND OPERATOR GLUCOSE METER Timed 07/05/2024 7:42 PM SECOND OPERATOR GLUCOSE METER Timed 07/05/2024 6:41 PM SECOND OPERATOR CBC WITH AUTO DIFFERENTIAL STAT 07/05/2024 6:19 PM SECOND OPERATOR HEPATIC FUNCTION PANEL STAT 07/05/2024 6:19 PM SECOND OPERATOR CBC WITH AUTO DIFFERENTIAL STAT 07/05/2024 6:19 PM SECOND OPERATOR BASIC METABOLIC PANEL STAT 07/05/2024 6:19 PM SECOND OPERATOR GLUCOSE METER Timed 07/05/2024 5:51 PM SECOND OPERATOR POTASSIUM STAT 07/05/2024 5:29 PM SECOND OPERATOR GLUCOSE METER Timed 07/05/2024 5:00 PM SECOND OPERATOR GLUCOSE METER Timed 07/05/2024 4:37 PM SECOND OPERATOR SUPRAGLOTTIC-LMA Routine 07/05/2024 3:33 PM SECOND OPERATOR CYSTOSCOPY Tier 2 07/05/2024 3:07 PM SECOND OPERATOR Hx bladder Cancer Case Notes BOP PT DOES NOT HAVE SOMEONE to stay with him for 24 hours post surgery GLUCOSE METER Timed 07/05/2024 2:59 PM SECOND OPERATOR POTASSIUM KOJO 07/05/2024 2:48 PM SECOND OPERATOR GLUCOSE METER Timed 07/05/2024 2:31 PM SECOND OPERATOR SCAN-CARDIAC STRIP 07/05/2024 12:00 AM SECOND OPERATOR SCAN-CARDIAC STRIP 07/05/2024 12:00 AM SECOND OPERATOR SCAN-CARDIAC STRIP 07/05/2024 12:00 AM SECOND OPERATOR CBC WITH AUTO DIFFERENTIAL Routine 07/03/2024 4:50 PM SECOND OPERATOR Preoperative general physical examination CBC WITH AUTO DIFFERENTIAL Routine 05/29/2024 3:28 PM SECOND OPERATOR Pre-op exam LIPID PANEL W REFLEX MEASURED LDL Routine 04/17/2024 10:16 AM SECOND OPERATOR Type 2 diabetes mellitus with chronic kidney disease on chronic dialysis, without long-term current use of insulin (HC) HEMOGLOBIN A1C Routine 04/17/2024 10:16 AM SECOND OPERATOR Type 2 diabetes mellitus with chronic kidney [...] Relevant to Health Maintenance Results * (ABNORMAL) GLUCOSE METER (07/06/2024 10:52 AM SECOND OPERATOR) Only the most recent of13 resultswithin the time period is included. GLUCOSE METER 111(H) 65 - 100 mg/dL 07/06/2024 3:37 PM SECOND OPERATOR [facility] Blood BLOOD SPECIMEN / Unknown 07/06/2024 10:52 AM SECOND OPERATOR 07/06/2024 3:37 PM SECOND OPERATOR Gavin Mcdonald MD CHEMISTRY Yamilet l Result Performing Organization Address [facility] de Phone Number [address] [address] * Hemoglobin A1C (07/06/2024 5:19 AM SECOND OPERATOR) HEMOGLOBIN A1C MONITORING (POCT) 5.1 <=6.4 % 07/06/2024 7:51 AM SECOND OPERATOR [facility] Blood BLOOD SPECIMEN / Unknown Venipuncture / Unknown 07/06/2024 5:19 AM SECOND OPERATOR 07/06/2024 5:40 AM SECOND OPERATOR Narrative [facility] - 07/06/2024 7:51 AM SECOND OPERATOR (<=6.9%) Indicates good control (7.0% to 7.9%) Indicates fair control (>=8.0%) Indicates poor control NOTE: These thresholds are guidelines and individual targets may vary. Falsely low levels may be seen with: Recent Transfusion, Recent Significant Blood Loss, Hemolytic Diseases, or Falsely elevated levels may be seen with: Untreated Anemias, Splenectomy Gavin Mcdonald MD CHEMISTRY Yamilet l Result Performing Organization Address [facility] Co de Phone Number [address] [address] * Potassium (07/05/2024 9:26 PM SECOND OPERATOR) Only the most recent of4 resultswithin the time period is included. Pathologist [facility] POTASSIUM 5.1 3.5 - 5.1 mmol/L 07/05/2024 9:50 PM SECOND OPERATOR [facility] Blood BLOOD SPECIMEN / Unknown Butterfly / Unknown 07/05/2024 9:26 PM SECOND OPERATOR 07/05/2024 9:31 PM SECOND OPERATOR Gavin Mcdonald MD CHEMISTRY Yamilet l Result Performing Organization Address [facility] de Phone Number [id number] [place] [address] * 12 Lead EKG (07/05/2024 8:06 PM SECOND OPERATOR) Pathologist [facility] Interpretation Sinus rhythm with 1st degree A-V block Incomplete right bundle branch block Left anterior fascicular block Septal infarct , age undetermined Abnormal ECG No significant change was found BEYOND NOW Ventricular Rate 90 BPM BEYOND NOW Atrial Rate 90 BPM BEYOND NOW P-R Interval 210 ms BEYOND NOW QRS Duration 114 ms BEYOND NOW QT 372 ms BEYOND NOW QTc 455 ms BEYOND NOW P Claude 74 degrees BEYOND NOW R Claude -57 degrees BEYOND NOW T Claude 54 degrees BEYOND NOW 07/05/2024 8:06 PM SECOND OPERATOR 07/11/2024 7:40 AM CDT Gavin Mcdonald MD EKG ORD Yamilet l Result Performing Organization Address [facility] Co de Phone Number BEYOND NOW [place], [place] * (ABNORMAL) CBC WITH AUTO DIFFERENTIAL (07/05/2024 6:19 PM SECOND OPERATOR) Pathologist [facility] WHITE BLOOD COUNT 9.2 4.5 - 11.0 thou/cu mm 07/05/2024 6:23 PM SECOND OPERATOR [facility] RED BLOOD COUNT 3.39(L) 4.30 - 5.90 mil/cu mm 07/05/2024 6:23 PM [facility] HEMOGLOBIN 10.7(L) 13.5 - 17.5 g/dL 07/05/2024 6:23 PM [facility] HEMATOCRIT 33.7(L) 37.0 - 53.0 % 07/05/2024 6:23 PM [facility] MCV 99 80 - 100 fL 07/05/2024 6:23 PM [facility] MCH 31.6 26.0 - 34.0 pg 07/05/2024 6:23 PM [facility] MCHC 31.8(L) 32.0 - 36.0 g/dL 07/05/2024 6:23 PM [facility] RDW 16.3(H) 11.5 - 15.5 % 07/05/2024 6:23 PM [facility] PLATELET COUNT 167 140 - 440 thou/cu mm 07/05/2024 6:23 PM [facility] MPV 9.0 6.5 - 11.0 fL 07/05/2024 6:23 PM [facility] NRBC 0.0 % 07/05/2024 6:23 PM [facility] ABS NRBC 0.0 thou /cu mm 07/05/2024 6:23 PM [facility] % NEUT 71.3 % 07/05/2024 6:23 PM [facility] % LYMPH 18.6 % 07/05/2024 6:23 PM [facility] % MONO 7.3 % 07/05/2024 6:23 PM [facility] % EOS 2.1 % 07/05/2024 6:23 PM [facility] % BASO 0.4 % 07/05/2024 6:23 PM [facility] % IMMATURE GRAN (METAS,MYELOS,NV OS) 0.3 % 07/05/2024 6:23 PM [facility] ABSOLUTE NEUTROPHILS 6.5 1.7 - 7.0 thou/cu mm 07/05/2024 6:23 PM [facility] ABSOLUTE LYMPHOCYTES 1.7 0.9 - 2.9 thou/cu mm 07/05/2024 6:23 PM [facility] ABSOLUTE MONOCYTES 0.7 <0.9 thou/cu mm 07/05/2024 6:23 PM [facility] ABSOLUTE EOSINOPHILS 0.2 <0.5 thou/cu mm 07/05/2024 6:23 PM SECOND OPERATOR [facility] ABSOLUTE BASOPHILS 0.0 <0.3 thou/cu mm 07/05/2024 6:23 PM [facility] ABSOLUTE IMMATURE GRANULOCYTES(MET ,MYELOS,PROS) 0.0 <0.3 thou/cu mm 07/05/2024 6:23 PM [facility] Blood BLOOD SPECIMEN / Unknown Butterfly / Unknown 07/05/2024 6:19 PM SECOND OPERATOR 07/05/2024 6:21 PM SECOND OPERATOR us Gavin Mcdonald MD HEMATOLOGY Yamilet l Result [facility] [address] [place] [address] * (ABNORMAL) Hepatic Function Panel (07/05/2024 6:19 PM SECOND OPERATOR) ALBUMIN 3.8(L) 4.0 - 4.9 g/dL 07/05/2024 6:43 PM [facility] PROTEIN,TOTAL 6.4 6.0 - 8.0 g/dL 07/05/2024 6:43 PM [facility] BILIRUBIN,TOTAL 0.3 0.0 - 1.2 mg/dL 07/05/2024 6:43 PM [facility] BILIRUBIN,DIRECT 0.1 0.0 - 0.2 mg/dL 07/05/2024 6:43 PM [facility] BILIRUBIN,INDIRE CT 0.2 0.2 - 0.8 mg/dL 07/05/2024 6:43 PM [facility] ALK PHOSPHATASE 75 40 - 129 IU/L 07/05/2024 6:43 PM [facility] ALT (SGPT) 21 10 - 50 IU/L 07/05/2024 6:43 PM [facility] AST (SGOT) 21 10 - 50 IU/L 07/05/2024 6:43 PM [facility] Blood BLOOD SPECIMEN / Unknown Butterfly / Unknown 07/05/2024 6:19 PM SECOND OPERATOR 07/05/2024 6:21 PM SECOND OPERATOR us Gavin Mcdonald MD CHEMISTRY Yamilet l Result [facility] [address] [place] [address] * (ABNORMAL) Basic Metabolic Panel (07/05/2024 6:19 PM SECOND OPERATOR) SODIUM 134(L) 136 - 145 mmol/L 07/05/2024 6:52 PM SECOND OPERATOR [facility] POTASSIUM 6.1(HH) 3.5 - 5.1 mmol/L 07/05/2024 6:52 PM [facility] CHLORIDE 101 98 - 107 mmol/L 07/05/2024 6:52 PM [facility] CO2,TOTAL 20(L) 22 - 29 mmol/L 07/05/2024 6:52 PM [facility] ANION GAP 13 5 - 18 07/05/2024 6:52 PM [facility] GLUCOSE 127(H) 70 - 99 mg/dL 07/05/2024 6:52 PM [facility] CALCIUM 9.9 8.8 - 10.4 mg/dL 07/05/2024 6:52 PM [facility] Comment: Reference ranges for this test were updated on 03/06/2024 to reflect our healthy population more accurately. Reference range changes are not retroactively applied to results, but previous results using the same methodology can be interpreted in the context of the new reference range. BUN 68(H) 6 - 20 mg/dL 07/05/2024 6:52 PM [facility] CREATININE 12.60(HH) 0.70 - 1.20 mg/dL 07/05/2024 6:52 PM [facility] BUN/CREAT RATIO 5(L) 10 - 20 6:52 PM [facility] eGFR 4(L) >90 mL/min/1. 73m2 07/05/2024 6:52 PM [facility] Comment:As of 2021, eG FR is calculated by the CKD-EPI creatinine equation without race adjustment. eGFR can be influenced by muscle mass, exercise, and diet. The reported eGFR is an estimation only and is only applicable if the renal function is stable. Blood BLOOD SPECIMEN / Unknown Butterfly / Unknown 07/05/2024 6:19 PM SECOND OPERATOR 07/05/2024 6:21 PM SECOND OPERATOR us Gavin Mcdonald MD CHEMISTRY Yamilet l Result [facility] [address] [place] [id number] * Supraglottic (07/05/2024 3:33 PM SECOND OPERATOR) Narrative Jacquelyn Wolf CRNA - 07/05/2024 3:33 PM SECOND OPERATOR Jacquelyn Wolf CRNA 07/05/2024 3:34 PM Procedure: Supraglottic Patient location during procedure: OR Supraglottic Airway Properties Mask Ventilation: not attempted Type: classic Tube Size: 5 Insertion Attempts: 1 Placement Verification: auscultation and CO2 detection Assessment Assessment: atraumatic and dentition unchanged us Mejia Carrera MD ANESTHESIA PX NOTE ORDERA BLES Final Result * SCAN-CARDIAC STRIP (07/05/2024 12:00 AM SECOND OPERATOR) Narrative 07/05/2024 12:00 AM SECOND OPERATOR Ordered by an unspecified provider. us Other Clinical Staff OTHER Final Resul t * SCAN-CARDIAC STRIP (07/05/2024 12:00 AM SECOND OPERATOR) Narrative 07/05/2024 12:00 AM SECOND OPERATOR Ordered by an unspecified provider. us Other Clinical Staff OTHER Final Resul t * SCAN-CARDIAC STRIP (07/05/2024 12:00 AM SECOND OPERATOR) Narrative 07/05/2024 12:00 AM SECOND OPERATOR Ordered by an unspecified provider. us Other Clinical Staff OTHER Final Resul t * (ABNORMAL) CBC AND DIFFERENTIAL (07/03/2024 4:50 PM SECOND OPERATOR) Only the most recent of2 resultswithin the time period is included. WHITE BLOOD CELL COUNT 7.7 3.8 - 10.8 Thousand/u L [facility] RED BLOOD CELL COUNT 3.57(L) 4.20 - 5.80 Million/uL [facility] HEMOGLOBIN 10.8(L) 13.2 - 17.1 g/dL [facility] HEMATOCRIT 34.6(L) 38.5 - 50.0 % [facility] MCV 96.9 80.0 - 100.0 fL [facility] MCH 30.3 27.0 - 33.0 pg [facility] MCHC 31.2(L) 32.0 - 36.0 g/dL [facility] Comment: For adults, a slight decrease in the calculated MCHC value (in the range of 30 to 32 g/dL) is most likely not clinically significant; however, it should be interpreted with caution in correlation with other red cell parameters and the patient's clinical condition. RDW 15.3(H) 11.0 - 15.0 % [facility] PLATELET COUNT 229 140 - 400 Thousand/u L [facility] [facility] MPV 10.1 7.5 - 12.5 fL [facility] ABSOLUTE NEUTROPHILS 4,813 1,500 - 7,800 cells/uL [facility] ABSOLUTE LYMPHOCYTES 1,856 850 - 3,900 cells/uL [facility] ABSOLUTE MONOCYTES 770 200 - 950 cells/uL [facility] ABSOLUTE EOSINOPHILS 200 15 - 500 cells/uL [facility] ABSOLUTE BASOPHILS 62 0 - 200 cells/uL [facility] NEUTROPHILS 62.5 % [facility] LYMPHOCYTES 24.1 % [facility] MONOCYTES 10.0 % [facility] EOSINOPHILS 2.6 % [facility] BASOPHILS 0.8 % [facility] Blood BLOOD SPECIMEN / Unknown 07/03/2024 4:50 PM SECOND OPERATOR 07/03/2024 4:50 PM SECOND OPERATOR us Olivier Phillips MD HEMATOLOGY Final Resu lt [facility] [address] [place] [address], [place] [phone] [facility] [address] [place] [address] * HEMOGLOBIN A1C (04/17/2024 10:16 AM SECOND OPERATOR) HEMOGLOBIN A1C 4.9 <5.7 % of total [...] diagnosis of diabetes in children. According to [place] Diabetes Association (ADA) guidelines, hemoglobin A1c <7.0% represents optimal control in non- diabetic patients. Different metrics may apply to specific patient populations. Standards of Medical Care in Diabetes(ADA). Blood BLOOD SPECIMEN / Unknown 04/17/2024 10:16 AM SECOND OPERATOR 04/17/2024 10:16 AM SECOND OPERATOR Rosamaria OBRIEN CHEMISTRY Final Resu lt [facility] [employer] [facility] [address] [place] [address], [place] [phone] [facility] [address] [place] [address] * LIPID PANEL W REFLEX MEASURED LDL (04/17/2024 10:16 AM SECOND OPERATOR) CHOLESTEROL, TOTAL 145 <200 mg/dL [facility] HDL CHOLESTEROL 64 > OR = 40 mg/dL [facility] TRIGLYCERIDES 71 <150 mg/dL [facility] LDL-CHOLESTEROL 66 mg/dL (calc) [facility] Comment: Reference range: <100 Desirable range <100 mg/dL for primary prevention; <70 mg/dL for patients with CHD or diabetic patients with > or = 2 CHD risk factors. LDL-C is now calculated using the Avi calculation, which is a validated novel method providing better accuracy than the Friedewald equation in the estimation of LDL-C. Parrish CUELLAR et al. JULIEN. 2013;310(19): 6236-4618 (http://education.NSH Holdco/faq/HNZ864) CHOL/HDLC RATIO 2.3 <5.0 (calc) [employer] [facility] NON HDL CHOLESTEROL 81 <130 mg/dL (calc) [employer] [facility] Comment: For patients with diabetes plus 1 major ASCVD risk factor, treating to a non-HDL-C goal of <100 mg/dL (LDL-C of <70 mg/dL) is considered a therapeutic option. Blood BLOOD SPECIMEN / Unknown 04/17/2024 10:16 AM SECOND OPERATOR 04/17/2024 10:16 AM SECOND OPERATOR Rosamaria OBRIEN CHEMISTRY Final Resu lt [facility] [employer] [facility] [place] [address] [place] [address], [address] [address] * COLONOSCOPY (12/15/2022 3:12 PM CDT) 12/15/2022 3:12 PM CDT Narrative Transcriptions Arthur Sánchez MD - 12/15/2022 4:16 PM CDT [facility] Patient Name: Vik Thakkar Procedure Date: 12/15/2022 Gender: Male Date of : 1970 Admit Type: Outpatient Procedure: Colonoscopy Proceduralist: Arthur Sánchez MD - [facility] Indications/Pre-Op Diagnosis: High risk colon cancer surveillance:Personal history of colon cancer Medications: Monitored Anesthesia Care Procedure Description: The patient had risks, benefits and alternatives explained to andgave informed consent. The patient had a stable cardiopulmonary status and judged an adequate candidate for conscious sedation. The endoscope [id number] was passed through the anus andadvanced to [...] electronically. Note Initiated On: 12/15/2022 3:12 PM Arthur Sánchez MD PROCEDURE ORD Final Res ult * LC HIV-1/O/2, 4TH GENERATION (10/01/2022 3:44 PM CDT) Pathologist [facility] HIV Scr 4th Gen Non Reactive Non Reactive 10/05/2022 1:[address] [facility] ([facility]) Comment: HIV Negative HIV-1/HIV-2 antibodies and HIV-1 p24 antigen were NOT detected. There is no laboratory evidence of HIV infection. Blood BLOOD SPECIMEN / Unknown Venipuncture / Unknown 10/01/2022 3:44 PM CDT 10/01/2022 3:46 PM CDT Narrative [facility] ([facility]) - 10/05/2022 1:09 PM CDT Performed at: [address] [place] [id number] School Occupational Therapist: Sudheer Yanez MD, Phone: [phone] Gavin OBRIEN LABORATORY Fin al Result [facility] ([facility]) [address] [place] [address], * ANTI HCV (12/26/2021 5:58 AM CDT) Pathologist [facility] HEPATITIS C ANTIBODY Non-React fuentes Non-React fuentes 12/28/2021 5:08 PM CDT [facility] Comment:Antibodies to HCV no t detected; does not exclude the possibility of exposure to HCV. Blood BLOOD SPECIMEN / Unknown Venipuncture / Unknown 12/26/2021 5:58 AM CDT 12/26/2021 6:33 AM CDT Gavin OBRIEN SEND OUTS Fin al Result [facility] [address] [place] [address], [place] from Last 3 Months or Most [...] 06/02/2020 Insurance MEDICARE PART A HB ONLY [employer] [facility] HB ONLY [facility] MR [facility] ACQU[facility]ITION [facility] PB ONLY [address] [id number] Advance Directives * Full Code (Latest Code Status on File) Date Activated Date Inactivated Comments 07/05/2024 1:45 PM 07/06/2024 4:20 PM Question Answer Comments Code Status Discussion: Not Discussed * Full Code Date Activated Date Inactivated Comments 10/27/2023 10:04 [...] Code Status Discussion: Reviewed Preferences Care Teams Veterinary Milk Specialist Relationship Specialty Start Date End Date Rosamaria Garcia PA [facility] [place] [address] PCP - General Physician Cube Cutter 12/21/22 Radha Baires PLATEMAKER Psychiatry Nurse Practitioner 07/02/16 Rosamaria Dunn Cancer Nurse Coordinator Registered Nurse 11/15/16 Alison Otto, [facility] [address] [place] [address] [facility] Conveyor Tender Cellar 01/18/17 Christopher Collins MBBS [address] [place] [address] Oncology Oncology 01/11/17 Nik Flores LSW [address] [place] [address] Logistics Administrator 01/28/17
[2024-07-12] MEDS: fentaNYL 100 MCG/2 ML inj 50 MCG IVP (11:40)
[2024-07-12 11:46] VITALS: O2SAT 100
[2024-07-12 12:02] VITALS: BP 141/83
--- NOTE | 2024-07-12 12:14 | ED.GENADULT ---
HPI - General Adult General Date Seen: 07/12/24 Chief complaint: Extremity Pain/Injury, Upper Stated complaint: Hemorrhage Time Seen by Provider: 07/12/24 11:23 Source: patient and EMS Mode of arrival: EMS Limitations: no limitations History of Present Illness HPI narrative: Patient is a 54-year-old dialysis patient who last received dialysis yesterday presenting to the emergency department for bleeding from his fistula site. He states he was in the shower when the scab came off his fistula and started bleeding profusely. EMS was called and they state it was strong pulsatile blood. They were able to control the bleeding with pressure. When patient arrived to the emergency department pressure was removed to visualize any began the pulsatile bleed again. Again they were able to get bleeding controlled with pressure. He states he has had this happen before and has needed stitches for it. Is supposed to have is facial evaluated next week for possible new fistula. Denies lightheadedness, dizziness, weakness, numbness. Does have some mild pain to the fistula site were was bleeding. Related Data Home Medications ?Medication ?Instructions ?Recorded ?Confirmed amlodipine 10 mg tablet 10 mg PO DAILY 12/26/21 02/11/23 atorvastatin 40 mg tablet 40 mg PO DAILY 12/26/21 02/11/23 diclofenac sodium 1 % topical gel 2 g topical 12/26/21 ferric citrate 210 mg iron tablet 2 tab PO TID 12/26/21 02/11/23 (Auryxia) lidocaine-prilocaine 2.5 %-2.5 % 1 applic topical DAILY 12/26/21 02/11/23 topical cream metoprolol tartrate 25 mg tablet 25 mg PO Q12H 12/26/21 02/11/23 ondansetron 8 mg disintegrating 8 mg PO Q8H PRN 12/26/21 02/11/23 tablet oxycodone 5 mg tablet 5 mg PO Q6H PRN 12/26/21 02/11/23 sennosides 8.6 mg tablet (Suyapa-ulysses) 8.6 mg PO DAILY PRN 12/26/21 02/11/23 sevelamer carbonate 800 mg tablet 2,400 mg PO TID 12/26/21 08/15/22 vit B,C-folic ac 800 mcg-zinc 12.5 1 tab PO DAILY 12/26/21 02/11/23 mg-selen-D3 2,000 unit-vit E tablet (RenaPlex-D) sucralfate 100 mg/mL oral 1 g PO BID 02/11/23 02/11/23 suspension (Carafate) tizanidine 2 mg tablet 2 mg PO QPM 02/11/23 02/11/23 Previous Rx's ?Medication ?Instructions ?Recorded fidaxomicin 200 mg tablet 200 mg PO BID 10 days #20 tabs 10/21/22 naloxegol 12.5 mg tablet (Movantik) 12.5 mg PO QAM #5 tabs 12/02/22 ondansetron 8 mg disintegrating 8 mg PO Q8H PRN nausea and 04/21/23 tablet vomiting #30 tabs Allergies Allergy/AdvReac Type Severity Reaction Status Date / Time lisinopril Allergy Severe angioedema Verified 01/21/23 14:44 Penicillins Allergy Unknown Verified 01/21/23 14:44 hydromorphone (From Dilaudid) AdvReac nausea/vomi Verified 01/21/23 14:44 ting Review of Systems Status of ROS: Reports: 10 or more systems reviewed and unremarkable except as noted in History and below [facility] Medical History Type 2 diabetes mellitus, without long-term current use of insulin ?E11.9 - Type 2 diabetes mellitus without complications (ICD-10) Hypertension ?I10 - Essential (primary) hypertension (ICD-10) Malignant neoplasm of sigmoid colon ?C18.7 - Malignant neoplasm of sigmoid colon (ICD-10) Spondylosis of lumbar region without myelopathy or radiculopathy ?M47.816 - Spondylosis without myelopathy or radiculopathy, lumbar region (ICD-10) Bilateral hip pain ?M25.551 - Pain in right hip (ICD-10) ?M25.552 - Pain in left hip (ICD-10) Spinal stenosis, lumbar region without neurogenic claudication ?M48.061 - Spinal stenosis, lumbar region without neurogenic claudication (ICD-10) Lumbar foraminal stenosis ?M48.061 - Spinal stenosis, lumbar region without neurogenic claudication (ICD-10) Chronic abdominal pain ?R10.9 - Unspecified abdominal pain (ICD-10) ?G89.29 - Other chronic pain (ICD-10) Chronic pain of both shoulders ?M25.511 - Pain in right shoulder (ICD-10) ?M25.512 - Pain in left shoulder (ICD-10) ?G89.29 - Other chronic pain (ICD-10) Peripheral polyneuropathy ?G62.9 - Polyneuropathy, unspecified (ICD-10) Chronic thoracic back pain ?M54.6 - Pain in thoracic spine (ICD-10) ?G89.29 - Other chronic pain (ICD-10) GERD (gastroesophageal reflux disease) ?K21.9 - Gastro-esophageal reflux disease without esophagitis (ICD-10) Chronic constipation ?K59.09 - Other constipation (ICD-10) Hematemesis ?K92.0 - Hematemesis (ICD-10) Anxiety and depression ?F41.9 - Anxiety disorder, unspecified (ICD-10) ?F32.A - Depression, unspecified (ICD-10) ESRD on hemodialysis ?N18.6 - End stage renal disease (ICD-10) ?Z99.2 - Dependence on renal dialysis (ICD-10) Secondary hyperparathyroidism (of renal origin) ?N25.81 - Secondary hyperparathyroidism of renal origin (ICD-10) Surgical History History of colectomy ?Z90.49 - Acquired absence of other specified parts of digestive tract (ICD-10) History of cholecystectomy ?Z90.49 - Acquired absence of other specified parts of digestive tract (ICD-10) Social History Smoking Status: Former smoker Do you use any of these nicotine containing products: None Second hand tobacco smoke exposure: No How often do you have a drink containing alcohol: never How often do you have six or more drinks on one occasion: Never AUDIT-C Alcohol total score: 0 Non-prescribed substance use: marijuana (any form) service: No Exam Narrative: Exam Narrative: Const: Well-nourished, Well-developed, in no distress Eyes: PERRL, no conjunctival injection, and symmetrical lids HENT: Atraumatic external nose and ears. Moist mucous membranes. Neck: Symmetric, trachea midline, No thyromegaly. CVS: RRR, No murmurs or gallops. Peripheral pulses 2+ and equal in all extremities. Postop bleeding from face she does like to left arm RESP: Unlabored respiratory effort. Clear to auscultation bilaterally. GI: Nontender/Nondistended, No rebound or guarding. MSK:Extremities w/o deformity, Normal Active ROM Skin: Warm, Dry. No rashes or lesions. Neuro: Normal Muscle tone, No focal neurological deficits. Psych: Awake, Alert, & Oriented x3. Appropriate mood and affect. Const: Vital Signs, click to edit/add: Vital Signs - 24 hr 07/12/24 11:15 07/12/24 11:46 Temperature 98.8 F Pulse Rate [Pulse Oximeter] 113 H Respiratory Rate 20 Blood Pressure [Ri ght Upper Arm] 148/98 H Pulse Oximetry 94 100 Oxygen Delivery Me thod Room Air Course Vital Signs Vital signs: Initial Vital Signs Temperature 98.8 F 07/12/24 11:15 Temperature Source Temporal Artery Scan 07/12/24 11:15 Pulse Rate 113 H 07/12/24 11:15 Respiratory Rate 20 07/12/24 11:15 Blood Pressure 148/98 H 07/12/24 11:15 Blood Pressure Mean 114 H 07/12/24 11:15 Blood Pressure Position Sitting 07/12/24 11:15 Pulse Oximetry 94 07/12/24 11:15 Oxygen Delivery Method Room Air 07/12/24 11:15 Vital Signs Temperature 98.8 F 07/12/24 11:15 Pulse Rate 113 H 07/12/24 11:15 Respiratory Rate 20 07/12/24 11:15 Blood Pressure 148/98 H 07/12/24 11:15 Pulse Oximetry 94 07/12/24 11:15 Oxygen Delivery Method Room Air 07/12/24 11:15 Temperature 98.8 F 07/12/24 11:15 Pulse Rate 113 H 07/12/24 11:15 Respiratory Rate 20 07/12/24 11:15 Blood Pressure 148/98 H 07/12/24 11:15 Pulse Oximetry 100 07/12/24 11:46 Oxygen Delivery Method Room Air 07/12/24 11:15 Medications Administered Medications: Discontinued Medications Generic Name Dose Route Start Last Admin Trade Name Freq PRN Reason Stop Dose Admin Fentanyl 50 mcg 07/12/24 11:24 07/12/24 11:40 Fentanyl 100 Mcg/2 Ml Inj IVP 07/12/24 11:25 50 mcg ONCE ONE Administration Medical Decision Making MDM Narrative Medical decision making narrative: Patient is a 54-year-old male presenting to emergency department for a bleeding from his fistula site. It is in the lower portion. We have now been able to get bleeding to stop and I was finally able to fully visualize it. Due to the heavy bleeding previously I will place a aggbjb-lv-mikcp stitch using 4-0 Ethilon. Bleeding has stopped completely. Will monitor to make sure bleeding does not restart. Bandage placed over the site. Did put surgical foam over the area bleeding also. We monitored the patient for an hour after this and bleeding did not restart. Patient was able to ambulate around the department without issues. Do not believe checking blood work would be beneficial at this time as it would take a while for his white blood show count to show any significant anemia. Did given close return precautions which he states he understands and agrees with the plan for discharge. Discharge Plan Discharge Clinical Impression: Hemorrhage of arteriovenous fistula Qualifiers: Encounter type: initial encounter Qualified Code(s): T82.838A - Hemorrhage due to vascular prosthetic devices, implants and grafts, initial encounter Patient Disposition: Home, Self-Care Condition: Improved Additional Instructions: Make sure to inform your dialysis provider of your bleeding when you see them tomorrow. If this does started up again make sure to place direct pressure with your finger to stop the bleeding. Hold the pressure for at least 10 minutes. If you start developing lightheadedness, dizziness or any other concerning symptoms return for re-evaluation. Prescriptions: No Action atorvastatin 40 mg tablet 40 mg PO DAILY Patient Comments: TAKE ONE TABLET BY MOUTH AT BEDTIME sennosides [Suyapa-ulysses] 8.6 mg tablet 8.6 mg PO DAILY PRN Patient Comments: TAKE 1 TABLET (8.6 MG) BY MOUTH 2 TIMES DAILY. ondansetron 8 mg tablet,disintegrating 8 mg PO Q8H PRN Patient Comments: PLACE 1 TABLET (8MG) ON THE TONGUE EVERY 8 HOURS IF NEEDED FOR NAUSEA/VOMITING. lidocaine-prilocaine 2.5-2.5 % cream 1 applic topical DAILY Patient Comments: APPLY SMALL AMOUNT TO ACCESS SITE (AVF) 1 TO 2 HOURS BEFORE DIALYSIS. COVER WITH OCCLUSIVE DRESSING (SARAN WRAP) amlodipine 10 mg tablet 10 mg PO DAILY Patient Comments: TAKE ONE TABLET BY MOUTH ONCE DAILY oxycodone 5 mg tablet 5 mg PO Q6H PRN metoprolol tartrate 25 mg tablet 25 mg PO Q12H Patient Comments: TAKE ONE TABLET BY MOUTH TWICE A DAY. ON DIALYSIS DAYS TAKE THIS AFTERWARDS sevelamer carbonate 800 mg tablet 2,400 mg PO TID Patient Comments: TAKE 4 TABLETS BY MOUTH THREE TIMES DAILY WITH MEALS AND 3 TABLETS TWICE DAILY WITH SNACKS diclofenac sodium 1 % gel 2 g TOPICAL Patient Comments: APPLY 2 G TOPICALLY TO AFFECTED AREA(S) 4 TIMES DAILY. Auryxia 210 mg iron tablet 2 tab PO TID Patient Comments: TAKE 2 TABLETS BY MOUTH THREE TIMES A DAY WITH MEALS AND 1 TABLET TWICE A DAY WITH SNACKS. SWALLOW WHOLE, DO NOT CHEW OR CRUSH MEDICATION RenaPlex-D 800 mcg-12.5 mg -2,000 unit tablet 1 tab PO DAILY Patient Comments: TAKE 1 TABLET BY MOUTH EVERY DAY WITH THE EVENING MEAL fidaxomicin 200 mg tablet 200 mg PO BID 10 Days Qty: 20 0RF Rx Instructions: May need PA. His C Diff is resistant to Flagyl and Vanco. Movantik 12.5 mg tablet 12.5 mg PO QAM Qty: 5 0RF Rx Instructions: must be taken on empty stomach; no food 1 hr after or 2-3 hrs before dose sucralfate [Carafate] 100 mg/mL suspension 1 g PO BID tizanidine 2 mg tablet 2 mg PO QPM ondansetron 8 mg tablet,disintegrating 8 mg PO Q8H PRN (Reason: nausea and vomiting) Qty: 30 0RF Follow Up/Referrals: Rosamaria Garcia PA-C [Primary Care Provider] - Stand Alone Forms: [facility] Info Instructions
--- OUTSIDE RECORDS SUMMARY | 2024-07-12 12:17 | XMS_ITS | Encounter Summary ---
Author Organization Vendor Address [address] [facility] [place] [address] Care Team Providers Care Cooling Tower Technician Name Role Phone Gavin Lombardo Primary Care Provi moses Unavailable Kedar Tello MD Unavailable [phone] Rosamaria Garcia PA-C Primary Care Provider Encounter Details Date Type Department Care Team (Late st Contact Info) Description 08/24/2021 External Order Results [facility] [address] [place] [address] Outside, Provider Social History Tobacco Use Types Packs/Day Years Used Date Smoking Tobacco: Every Day Cigarettes 0.5 27 Smokeless Tobacco: Never Alcohol Use Standard Drinks/Week Comments Yes 0 (1 standard drink = 0.6 oz pur e alcohol) occ. 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
--- OUTSIDE RECORDS SUMMARY | 2024-07-12 12:17 | XMS_ITS | Encounter Summary ---
Author Organization [place] Address [address] [facility] [place] [address] Care Team Providers Care Planishing Press Operator Name Role Phone Kedar Tello MD Unavailable [phone] Rosamaria Garcia PA-C Primary Care Provider [phone] Reason for Visit * Auth/Cert (Routine) Specialty Diagnoses / Procedures Referred By Contaly t Referred To Contact Radiology. [facility] [address] [place] [address] Phone: tel: fax: Referral ID Status Reason Start Date Expiration Date Visits Re quested Visits Authorized [id number] 1 1 Encounter Details Date Type Department Care Team (Late st Contact Info) Description 04/24/2024 8:00 AM PLANT BREEDER Hospital Encounter [facility] [address] [place] [phone] Gio Dubon MD [facility] [address] [place] [address] Social History Tobacco Use Types Packs/Day Years [...] on file Legal Sex Male 5:19 AM PLANT BREEDER Gender Identity Not on file Sexual Orientation Not on file documented as of this encounter Plan of Treatment Not on file documented as of this encounter Visit Diagnoses Not on filedocumented in this encounter Care Teams Planishing Press Operator Relationship Specialty Start Date End Date Rosamaria Garcia PA-C [address] [place] [address] PCP - General 12/15/23 [place] [address] [place] [address] Assigned Gastroenterology Provider 01/29/23 documented as of this encounter
--- OUTSIDE RECORDS SUMMARY | 2024-07-12 12:17 | XMS_ITS | Encounter Summary ---
Author Organization [place] Address [address] [place] [address] Care Team Providers Care Riverboat Captain Name Role Phone Kedar Tello MD Unavailable [phone] Rosamaria Garcia PA-C Primary Care Provider [phone] Encounter Details Date Type Department Care Team (Late st Contact Info) Description 06/18/2024 Telephone [facility] [address] [place] [address] Bravo Moran, RN Social History [...] on file Legal Sex Male 5:19 AM ARCHITECT INTERNSHIP Gender Identity Not on file Sexual Orientation Not on file documented as of this encounter Miscellaneous Notes * Telephone Encounter - Bravo Moran RN - 06/18/2024 3:50 PM CST INTERVENTIONAL RADIOLOGY INSTRUCTIONS You are scheduled for an upcoming procedure in the Interventional Radiology Department at [facility]. The following was left on VM: Date: 06/19/24 Procedure: Fistulogram Address: [facility] [address] [facility] [address] Check into the Interventional Radiology Department at: [...] please call the Interventional Radiology team at [phone]. Thank you! Ramiro Tucker Interventional Radiology Intake Nurse Coordinator [phone] [employer] documented in this encounter Plan of Treatment Not on file documented as of this encounter Visit Diagnoses Not on filedocumented in this encounter Care Teams Riverboat Captain Relationship Specialty Start Date End Date Rosamaria Garcia PA-C [address] [place] [address] PCP - General 12/15/23 [place] [address] [address], [place] [address] Assigned Gastroenterology Provider 01/29/23 documented as of this encounter
--- OUTSIDE RECORDS SUMMARY | 2024-07-12 12:17 | XMS_ITS | Encounter Summary ---
Author Organization [place] Address [address] [facility] [place] [address] Care Team Providers Care Undercutter Operator Name Role Phone Courtney Guardado MD Primary Care Provider Gavin Lombardo Primary Care Provi moses Kedar Dang MD Unavailable [phone] Rosamaria Garcia PA-C Primary Care Provider [phone] Encounter Details Date Type Department Care Team (Late st Contact Info) Description 05/24/2018 External Order Results [facility] [address] [place] [address] Outside, Provider Social History Tobacco Use Types Packs/Day Years Used Date Smoking Tobacco: Every Day Cigarettes 0.5 27 Smokeless Tobacco: Never Alcohol Use Standard Drinks/Week Comments Yes 0 (1 standard drink = 0.6 oz pur e alcohol) occ. Sex and Gender Information Value Date Recorded Sex Assigned at Not on file Legal Sex Male 5:19 AM RETAIL ASSOCIATE MANAGER BILINGUAL Gender Identity Not on file Sexual Orientation Not on file documented as of this encounter Plan of Treatment Not on file documented as of this encounter Visit Diagnoses Not on filedocumented in this encounter Care Teams Undercutter Operator Relationship Specialty Start Date End Date Courtney Guardado MD PCP - General 03/09/12 07/30/20 Gavin Lombardo PA PCP - General Family Practice 07/31/20 12/14/23 Rosamaria Garcia PA-C [address] [place] [address] PCP - General 12/15/23 [place] [address] [place] [address] Assigned Gastroenterology Provider 01/29/23 documented as of this encounter
--- OUTSIDE RECORDS SUMMARY | 2024-07-12 12:17 | XMS_ITS | Clinical Summary ---
Author Organization [place] Address [address] [facility] [place] [address] Care Team Providers Care Pamphlet Distributor Name Role Phone Kedar Tello MD Unavailable [phone] Rosamaria Garcia PA-C Primary Care Provider [phone] Allergies Active Allergy Reactions Criticality Noted Date [...] mg by mouth every morning Active B ssmchus-S-bxnml acid (NEPHROCAPS) 1 MG capsule Take 1 [...] Department Care Team Description 06/19/2024 8:00 AM DAIRY FARM MANAGER Hospital Encounter [facility] [address] [place] [address] Hugo Sainz MD 06/18/2024 Telephone [facility] [address] [place] [address] Bravo Moran RN 04/24/2024 8:00 AM DAIRY FARM MANAGER Hospital Encounter [facility] [address] [place] [address] Gio Dubon MD 04/17/2024 Telephone [facility] [address] [place] [address] Ekta Fernandes, JASMIN from Last 3 Months [...] on file Legal Sex Male 5:19 AM DAIRY FARM MANAGER Gender Identity Not on file Sexual [...] LAB - BLOOD ORDERAB LES Final Result [facility] [address] [facility] Lab (1st floor, no room number) [place] [address], [facility] from Last 3 Months or Most Recently Relevant to Health Maintenance Insurance [employer] [employer] MEDICARE ADVANTAGE [employer] [employer] MEDICARE ADVANTAGE Care Teams Pamphlet Distributor Relationship Specialty Start Date End Date Rosamaria Garcia PA-C [address] [place] [address] PCP - General 12/15/23 [place] [address] [place] [address] Assigned Gastroenterology Provider 01/29/23
--- OUTSIDE RECORDS SUMMARY | 2024-07-12 12:17 | XMS_ITS | Encounter Summary ---
Author Organization [place] Address [address] [place] [address] Care Team Providers Care Applications Systems Engineer Name Role Phone Courtney Guardado MD Primary Care Provider [phone] Gavin Lombardo Primary Care Provi moses Kedar Dang MD Unavailable Rosamaria Garcia PA-C Primary Care Provider [phone] Reason for Visit * Reason Onset Date Comments Appointment 07/19/2017 called and left patient message related to missed appointment for today Encounter Details Date Type Department Care Team (Late st Contact Info) Description 07/19/2017 Telephone [facility] Imaging [address] [place] [address] Carla Zambrano, JASMIN Appointment (called [...] on file Legal Sex Male 5:19 AM MANAGER OF FINANCIAL PLANNING Gender Identity Not on file Sexual Orientation Not on file documented as of this encounter Plan of Treatment Not on file documented as of this encounter Visit Diagnoses Not on filedocumented in this encounter Care Teams Applications Systems Engineer Relationship Specialty Start Date End Date Courtney Guardado MD PCP - General 03/09/12 07/30/20 Gavin Lombardo PA PCP - General Family Practice 07/31/20 12/14/23 Rosamaria Garcia PA-C [address] [place] [address] PCP - General 12/15/23 [place] [id number] [facility] [address] Assigned Gastroenterology Provider 01/29/23 documented as of this encounter
--- OUTSIDE RECORDS SUMMARY | 2024-07-12 12:17 | XMS_ITS | Clinical Summary ---
Author Organization [employer] [facility] Address [facility] [place] [address] Care Team Providers Care Sifter Operator Name Role Phone Radha Baires ECONOMIC DEVELOPMENT MANAGER Unavailable Unavailable Rosamaria Dunn Unavailable Unavailable Alison Otto PHP MYSQL DEVELOPER Unavailable [phone] Christopher Collins MBBS Unavailable [phone] Nik Flores CHRONIC MANAGER Unavailable [phone] Rosamaria Garcia Primary Care Provider [phone] Allergies Active Allergy Reactions Criticality Noted Date [...] on Tuesday//Tuesday 3 Tablet 5 1:19 PM WILDLIFE CONTROL AGENT 07/07/19 25 2024 Active atorvastatin (LIPITOR) 40 [...] 90 Tablet 2 03/23/20 24 2024 Discontin ued(*Fior ent states no longer taking) escitalopram oxalate [...] & Plan: Bilateral great toe Stable Encouraged dietist consult and patient agree Type 2 diabetes [...] Assessment & Plan: ESRD Stable Dialysis at: [facility] on: MWF via fistula Diet: [...] M, W, F with Dr. Brown in [place]. Dependence on renal dialysis 06/08/2011 08/23/2019 Overview (09/21/2017): Overview: Overview: Dialysis M, W, F with Dr. Brown in [place]. ACP (advance care planning) 03/14/2011 05/11/2023 Overview (03/14/2011): Patient has identified Health Care Agent(s): Patient verbally identifies his significant other as health care decision maker however, she does not have a phone number at present. To contact Patient's family/SO contact can be made with Abhay Tovar (brother in law) [phone] and Thomas Carloz [phone] Friend Patient has Advance Care Plan Documents [...] Type Department Care Team Description 07/11/2024 Telephone [facility] [address] [place] [address] Rosamaria Garcia PA Medication Management (atorvastatin (LIPITOR) 40 mg tablet) 07/09/2024 Patient Outreach [facility] [address] [place] [address] Sobeida Prasad, RN Student Primary RN Care Management; Hospital F/U (Lace=20) 07/05/2024 3:45 PM WILDLIFE CONTROL AGENT - 07/05/2024 4:40 PM WILDLIFE CONTROL AGENT Surgery [address] [place] [address] Juan Francisco Don MD CYSTOSCOPY 07/05/2024 3:18 PM WILDLIFE CONTROL AGENT [address]est[address] [place] [address] Mejia Carrera MD 07/05/2024 1:28 PM WILDLIFE CONTROL AGENT - 07/06/2024 1:31 PM WILDLIFE CONTROL AGENT [address] [address] Juan Francisco Don MD Vanderloo, Matthew Robert, MD Microhematuria (Primary Dx); ESRD on hemodialysis (HC) Discharge Disposition: Home Self Care 07/05/2024 Travel 07/03/2024 3:35 PM WILDLIFE CONTROL AGENT Office Visit [facility] [address] [place] [address] Olivier Phillips MD Preoperative Exam (Cystoscopy 07/05) 07/03/2024 11:50 AM WILDLIFE CONTROL AGENT [facility] [address] [address] Jasmin Pugh PA Derm Problem (lesions) 07/03/2024 Travel 06/29/2024 Refill [facility] [address] [place] [address] Rosamaria Garcia PA Refill Request (oxyCODONE 10 mg tablet) 06/04/2024 8:50 AM WILDLIFE CONTROL AGENT Office Visit [facility] [address] [place] [address] Rosamaria Garcia PA Hand Pain/problem (Bilateral hand and foot pain-arthritis pain) 06/04/2024 Travel 05/31/2024 Refill [facility] [address] [place] [address] Rosamaria Garcia PA Refill Request (oxyCODONE 10 mg tablet) 05/30/2024 Refill [facility] [address] [place] [address] Rosamaria Garcia PA Refill Request (Dicyclomine) 05/30/[address] [address] Rosamaria Garcia PA Medication Management (dicyclomine (BENTYL) 20 mg tablet) 05/30/2024 Telephone [facility] [address] [place] [address] Rosamaria Garcia PA Results 05/29/2024 2:50 PM WILDLIFE CONTROL AGENT Office Visit [facility] [address] [place] [address] Rosamaria Garcia PA Preoperative Exam (Dr. Florencia Young-cystoscopy) 05/29/2024 Travel 05/25/2024 Travel 05/21/2024 Telephone [facility] [address] [place] [address] Rosamaria Garcia PA Error-please disregard 05/21/2024 Nurse Triage [facility] [address] [place] [address] Rosamaria Garcia PA Musculoskeletal Problem 05/01/2024 Telephone [facility] [address] [place] [address] Rosamaria Garcia PA Refill Request (oxycodone) 04/20/2024 Telephone [facility] [address] [place] [address] Rosamaria Garcia PA Results 04/17/2024 9:50 AM WILDLIFE CONTROL AGENT Office Visit [facility] [address] [place] [address] Rosamaria Garcia PA Follow Up (Needs a [...] on file Legal Sex Male 5:23 AM WILDLIFE CONTROL AGENT Gender Identity Not on file Sexual Orientation Not on file Occupation Industry Job Start Date Job End Date unempolyed Not on file Not on file Not on file Obstetrics History Last Filed Vital Signs Vital Sign Reading Time Taken Comments Blood Pressure 185/77 07/06/2024 12:00 PM WILDLIFE CONTROL AGENT Pulse 80 07/06/2024 12:00 PM WILDLIFE CONTROL AGENT Temperature 36.3 C (97.4 F) 07/06/2024 12:00 AM WILDLIFE CONTROL AGENT Respiratory Rate 18 07/06/2024 4:00 AM WILDLIFE CONTROL AGENT Oxygen Saturation 100% 07/06/2024 12:00 PM WILDLIFE CONTROL AGENT Inhaled Oxygen Concentration - - Weight 62.4 kg (137 lb 8 oz) 07/06/2024 6:00 AM WILDLIFE CONTROL AGENT Height 166.4 cm (5' 5.5) 07/05/2024 1:39 PM WILDLIFE CONTROL AGENT Body Mass Index 22.53 07/05/2024 1:39 PM WILDLIFE CONTROL AGENT Plan of Treatment Upcoming Encounters Date Type Department Care Team (Late st Contact Info) Description 07/26/2024 10:30 AM CDT Procedure Only [facility] [address] [id number] Dary Longoria MD [address] [phone] Health Maintenance Due Date Last Done Comments [...] Card MD Medical Devices Implanted Type Area Service Or Work Dispatcher Device Identifier Shelf Expiration Date Model / Serial / Lot Graft Vasc 8mm 40cm Propaten Thin Wall - [id number] Implanted:Qty: 1 on 04/10/2015 by Ash Zambrano MD at [facility] Left: Arm [employer] 10/23/2018 [id number] # / / Power Port Isp Mri 6fr [id number] - Stan Only - [id number] Implanted:Qty: 1 on 01/27/2017 by Kiet Hernandez DO at [facility] N/A: Chest [employer] 03/01/2018 [id number] / / [id number] Description:PowerPort isp M. R.I. Implantable Port Sys Ancr Sut 4.75mm Biocomposite - [id number] Implanted:Qty: 1 on 10/27/2023 by Milind Arroyo MD at [facility] Right: Shoulder [employer] 06/30/2027 [id number] [facility] / / [id number] Procedures Procedure Name Priority Date/Time Associated Diagnosis Comments GLUCOSE METER Timed 07/06/2024 10:52 AM WILDLIFE CONTROL AGENT GLUCOSE METER Timed 07/06/2024 6:59 AM WILDLIFE CONTROL AGENT HEMOGLOBIN A1C MONITORING (POCT) Early AM 07/06/2024 5:19 AM WILDLIFE CONTROL AGENT GLUCOSE METER Timed 07/05/2024 11:51 PM WILDLIFE CONTROL AGENT GLUCOSE METER Timed 07/05/2024 11:01 PM WILDLIFE CONTROL AGENT GLUCOSE METER Timed 07/05/2024 9:47 PM WILDLIFE CONTROL AGENT POTASSIUM STAT 07/05/2024 9:26 PM WILDLIFE CONTROL AGENT GLUCOSE METER Timed 07/05/2024 8:47 PM WILDLIFE CONTROL AGENT POTASSIUM Timed 07/05/2024 8:12 PM WILDLIFE CONTROL AGENT EKG 12 LEAD STAT 07/05/2024 8:06 PM WILDLIFE CONTROL AGENT GLUCOSE METER Timed 07/05/2024 7:42 PM WILDLIFE CONTROL AGENT GLUCOSE METER Timed 07/05/2024 6:41 PM WILDLIFE CONTROL AGENT CBC WITH AUTO DIFFERENTIAL STAT 07/05/2024 6:19 PM WILDLIFE CONTROL AGENT HEPATIC FUNCTION PANEL STAT 07/05/2024 6:19 PM WILDLIFE CONTROL AGENT CBC WITH AUTO DIFFERENTIAL STAT 07/05/2024 6:19 PM WILDLIFE CONTROL AGENT BASIC METABOLIC PANEL STAT 07/05/2024 6:19 PM WILDLIFE CONTROL AGENT GLUCOSE METER Timed 07/05/2024 5:51 PM WILDLIFE CONTROL AGENT POTASSIUM STAT 07/05/2024 5:29 PM WILDLIFE CONTROL AGENT GLUCOSE METER Timed 07/05/2024 5:00 PM WILDLIFE CONTROL AGENT GLUCOSE METER Timed 07/05/2024 4:37 PM WILDLIFE CONTROL AGENT SUPRAGLOTTIC-LMA Routine 07/05/2024 3:33 PM WILDLIFE CONTROL AGENT CYSTOSCOPY Tier 2 07/05/2024 3:07 PM WILDLIFE CONTROL AGENT Hx bladder Cancer Case Notes BOP PT DOES NOT HAVE SOMEONE to stay with him for 24 hours post surgery GLUCOSE METER Timed 07/05/2024 2:59 PM WILDLIFE CONTROL AGENT POTASSIUM KOJO 07/05/2024 2:48 PM WILDLIFE CONTROL AGENT GLUCOSE METER Timed 07/05/2024 2:31 PM WILDLIFE CONTROL AGENT SCAN-CARDIAC STRIP 07/05/2024 12:00 AM WILDLIFE CONTROL AGENT SCAN-CARDIAC STRIP 07/05/2024 12:00 AM WILDLIFE CONTROL AGENT SCAN-CARDIAC STRIP 07/05/2024 12:00 AM WILDLIFE CONTROL AGENT CBC WITH AUTO DIFFERENTIAL Routine 07/03/2024 4:50 PM WILDLIFE CONTROL AGENT Preoperative general physical examination CBC WITH AUTO DIFFERENTIAL Routine 05/29/2024 3:28 PM WILDLIFE CONTROL AGENT Pre-op exam LIPID PANEL W REFLEX MEASURED LDL Routine 04/17/2024 10:16 AM WILDLIFE CONTROL AGENT Type 2 diabetes mellitus with chronic kidney disease on chronic dialysis, without long-term current use of insulin (HC) HEMOGLOBIN A1C Routine 04/17/2024 10:16 AM WILDLIFE CONTROL AGENT Type 2 diabetes mellitus with chronic kidney [...] * (ABNORMAL) GLUCOSE METER (07/06/2024 10:52 AM WILDLIFE CONTROL AGENT) Only the most recent of13 resultswithin the time period is included. GLUCOSE METER 111(H) 65 - 100 mg/dL 07/06/2024 3:37 PM WILDLIFE CONTROL AGENT [facility] Blood BLOOD SPECIMEN / Unknown 07/06/2024 10:52 AM WILDLIFE CONTROL AGENT 07/06/2024 3:37 PM WILDLIFE CONTROL AGENT Gavin Mcdonald MD CHEMISTRY Yamilet l Result Performing Organization Address [facility] de Phone Number [address] [address] * Hemoglobin A1C (07/06/2024 5:19 AM WILDLIFE CONTROL AGENT) HEMOGLOBIN A1C MONITORING (POCT) 5.1 <=6.4 % 07/06/2024 7:51 AM WILDLIFE CONTROL AGENT [facility] Blood BLOOD SPECIMEN / Unknown Venipuncture / Unknown 07/06/2024 5:19 AM WILDLIFE CONTROL AGENT 07/06/2024 5:40 AM WILDLIFE CONTROL AGENT Narrative [facility] - 07/06/2024 7:51 AM WILDLIFE CONTROL AGENT (<=6.9%) Indicates good control (7.0% to 7.9%) Indicates fair control (>=8.0%) Indicates poor control NOTE: These thresholds are guidelines and individual targets may vary. Falsely low levels may be seen with: Recent Transfusion, Recent Significant Blood Loss, Hemolytic Diseases, or Falsely elevated levels may be seen with: Untreated Anemias, Splenectomy Gavin Mcdonald MD CHEMISTRY Yamilet l Result Performing Organization Address [facility] Co de Phone Number [address] [address] * Potassium (07/05/2024 9:26 PM WILDLIFE CONTROL AGENT) Only the most recent of4 resultswithin the time period is included. Pathologist [facility] POTASSIUM 5.1 3.5 - 5.1 mmol/L 07/05/2024 9:50 PM WILDLIFE CONTROL AGENT [facility] Blood BLOOD SPECIMEN / Unknown Butterfly / Unknown 07/05/2024 9:26 PM WILDLIFE CONTROL AGENT 07/05/2024 9:31 PM WILDLIFE CONTROL AGENT Gavin Mcdonald MD CHEMISTRY Yamilet l Result Performing Organization Address [facility] de Phone Number [phone] [place] [address] * 12 Lead EKG (07/05/2024 8:06 PM WILDLIFE CONTROL AGENT) Pathologist [facility] Interpretation Sinus rhythm with 1st degree A-V [...] NOW QTc 455 ms BEYOND NOW P [place] 74 degrees BEYOND NOW R [place] -57 degrees BEYOND NOW T [place] 54 degrees BEYOND NOW 07/05/2024 8:06 PM WILDLIFE CONTROL AGENT 07/11/2024 7:40 AM CDT Gavin Mcdonald MD EKG ORD Yamilet l Result Performing Organization Address [facility] Co de Phone Number BEYOND NOW [place], [place] * (ABNORMAL) CBC WITH AUTO DIFFERENTIAL (07/05/2024 6:19 PM WILDLIFE CONTROL AGENT) Pathologist [facility] WHITE BLOOD COUNT 9.2 4.5 - 11.0 thou/cu mm 07/05/2024 6:23 PM WILDLIFE CONTROL AGENT [facility] RED BLOOD COUNT 3.39(L) 4.30 - 5.90 mil/cu mm 07/05/2024 6:23 PM [facility] HEMOGLOBIN 10.7(L) 13.5 - 17.5 g/dL 07/05/2024 6:23 PM [facility] HEMATOCRIT 33.7(L) 37.0 - 53.0 % 07/05/2024 6:23 PM [facility] MCV 99 80 - 100 fL 07/05/2024 6:23 PM [facility] MCH 31.6 26.0 - 34.0 pg 07/05/2024 6:23 PM [facility] MCHC 31.8(L) 32.0 - 36.0 g/dL 07/05/2024 6:23 PM [facility] RDW 16.3(H) 11.5 - 15.5 % 07/05/2024 6:23 PM [facility] PLATELET COUNT 167 140 - 440 thou/cu mm 07/05/2024 6:23 PM [facility] MPV 9.0 6.5 - 11.0 fL 07/05/2024 6:23 PM [facility] NRBC 0.0 % 07/05/2024 6:23 PM [facility] ABS NRBC 0.0 thou /cu mm 07/05/2024 6:23 PM [facility] % NEUT 71.3 % 07/05/2024 6:23 PM [facility] % LYMPH 18.6 % 07/05/2024 6:23 PM [facility] % MONO 7.3 % 07/05/2024 6:23 PM [facility] % EOS 2.1 % 07/05/2024 6:23 PM [facility] % BASO 0.4 % 07/05/2024 6:23 PM [facility] % IMMATURE GRAN (METAS,MYELOS,ND OS) 0.3 % 07/05/2024 6:23 PM [facility] ABSOLUTE NEUTROPHILS 6.5 1.7 - 7.0 thou/cu mm 07/05/2024 6:23 PM [facility] ABSOLUTE LYMPHOCYTES 1.7 0.9 - 2.9 thou/cu mm 07/05/2024 6:23 PM [facility] ABSOLUTE MONOCYTES 0.7 <0.9 thou/cu mm 07/05/2024 6:23 PM [facility] ABSOLUTE EOSINOPHILS 0.2 <0.5 thou/cu mm 07/05/2024 6:23 PM WILDLIFE CONTROL AGENT [facility] ABSOLUTE BASOPHILS 0.0 <0.3 thou/cu mm 07/05/2024 6:23 PM [facility] ABSOLUTE IMMATURE GRANULOCYTES(MET ,MYELOS,PROS) 0.0 <0.3 thou/cu mm 07/05/2024 6:23 PM [facility] Blood BLOOD SPECIMEN / Unknown Butterfly / Unknown 07/05/2024 6:19 PM WILDLIFE CONTROL AGENT 07/05/2024 6:21 PM WILDLIFE CONTROL AGENT us Gavin Mcdonald MD HEMATOLOGY Yamilet l Result [facility] [address] [place] [address] * (ABNORMAL) Hepatic Function Panel (07/05/2024 6:19 PM WILDLIFE CONTROL AGENT) ALBUMIN 3.8(L) 4.0 - 4.9 g/dL 07/05/2024 6:43 PM [facility] PROTEIN,TOTAL 6.4 6.0 - 8.0 g/dL 07/05/2024 6:43 PM [facility] BILIRUBIN,TOTAL 0.3 0.0 - 1.2 mg/dL 07/05/2024 6:43 PM [facility] BILIRUBIN,DIRECT 0.1 0.0 - 0.2 mg/dL 07/05/2024 6:43 PM [facility] BILIRUBIN,INDIRE CT 0.2 0.2 - 0.8 mg/dL 07/05/2024 6:43 PM [facility] ALK PHOSPHATASE 75 40 - 129 IU/L 07/05/2024 6:43 PM [facility] ALT (SGPT) 21 10 - 50 IU/L 07/05/2024 6:43 PM [facility] AST (SGOT) 21 10 - 50 IU/L 07/05/2024 6:43 PM [facility] Blood BLOOD SPECIMEN / Unknown Butterfly / Unknown 07/05/2024 6:19 PM WILDLIFE CONTROL AGENT 07/05/2024 6:21 PM WILDLIFE CONTROL AGENT us Gavin Mcdonald MD CHEMISTRY Yamilet l Result [facility] [address] [place] [address] * (ABNORMAL) Basic Metabolic Panel (07/05/2024 6:19 PM WILDLIFE CONTROL AGENT) SODIUM 134(L) 136 - 145 mmol/L 07/05/2024 6:52 PM WILDLIFE CONTROL AGENT [facility] POTASSIUM 6.1(HH) 3.5 - 5.1 mmol/L 07/05/2024 6:52 PM [facility] CHLORIDE 101 98 - 107 mmol/L 07/05/2024 6:52 PM [facility] CO2,TOTAL 20(L) 22 - 29 mmol/L 07/05/2024 6:52 PM [facility] ANION GAP 13 5 - 18 07/05/2024 6:52 PM [facility] GLUCOSE 127(H) 70 - 99 mg/dL 07/05/2024 6:52 PM [facility] CALCIUM 9.9 8.8 - 10.4 mg/dL 07/05/2024 6:52 PM [facility] Comment: Reference ranges for this test were updated on 03/06/2024 to reflect our healthy population more accurately. Reference range changes are not retroactively applied to results, but previous results using the same methodology can be interpreted in the context of the new reference range. BUN 68(H) 6 - 20 mg/dL 07/05/2024 6:52 PM [facility] CREATININE 12.60(HH) 0.70 - 1.20 mg/dL 07/05/2024 6:52 PM [facility] BUN/CREAT RATIO 5(L) 10 - 20 6:52 PM [facility] eGFR 4(L) >90 mL/min/1. 73m2 07/05/2024 6:52 PM [facility] Comment:As of 2021, eG FR is calculated by the CKD-EPI creatinine equation without race adjustment. eGFR can be influenced by muscle mass, exercise, and diet. The reported eGFR is an estimation only and is only applicable if the renal function is stable. Blood BLOOD SPECIMEN / Unknown Butterfly / Unknown 07/05/2024 6:19 PM WILDLIFE CONTROL AGENT 07/05/2024 6:21 PM WILDLIFE CONTROL AGENT us Gavin Mcdonald MD CHEMISTRY Yamilet l Result [facility] [address] [place] [address] * Supraglottic (07/05/2024 3:33 PM WILDLIFE CONTROL AGENT) Narrative Jacquelyn Wolf CRNA - 07/05/2024 3:33 PM WILDLIFE CONTROL AGENT Jacquelyn Wolf CRNA 07/05/2024 3:34 PM Procedure: Supraglottic Patient location during procedure: OR Supraglottic Airway Properties Mask Ventilation: not attempted Type: classic Tube Size: 5 Insertion Attempts: 1 Placement Verification: auscultation and CO2 detection Assessment Assessment: atraumatic and dentition unchanged us Mejia Carrera MD ANESTHESIA PX NOTE ORDERA BLES Final Result * SCAN-CARDIAC STRIP (07/05/2024 12:00 AM WILDLIFE CONTROL AGENT) Narrative 07/05/2024 12:00 AM WILDLIFE CONTROL AGENT Ordered by an unspecified provider. us Other Clinical Staff OTHER Final Resul t * SCAN-CARDIAC STRIP (07/05/2024 12:00 AM WILDLIFE CONTROL AGENT) Narrative 07/05/2024 12:00 AM WILDLIFE CONTROL AGENT Ordered by an unspecified provider. us Other Clinical Staff OTHER Final Resul t * SCAN-CARDIAC STRIP (07/05/2024 12:00 AM WILDLIFE CONTROL AGENT) Narrative 07/05/2024 12:00 AM WILDLIFE CONTROL AGENT Ordered by an unspecified provider. us Other Clinical Staff OTHER Final Resul t * (ABNORMAL) CBC AND DIFFERENTIAL (07/03/2024 4:50 PM WILDLIFE CONTROL AGENT) Only the most recent of2 resultswithin the [...] BLOOD SPECIMEN / Unknown 07/03/2024 4:50 PM WILDLIFE CONTROL AGENT 07/03/2024 4:50 PM WILDLIFE CONTROL AGENT us Olivier Phillips MD HEMATOLOGY Final Resu lt [facility] [address] [place] [address], [place] [phone] [facility] [address] [place] [address] * HEMOGLOBIN A1C (04/17/2024 10:16 AM WILDLIFE CONTROL AGENT) HEMOGLOBIN A1C 4.9 <5.7 % of total [...] diagnosis of diabetes in children. According to [place] Diabetes Association (ADA) guidelines, hemoglobin A1c <7.0% represents optimal control in non- diabetic patients. Different metrics may apply to specific patient populations. Standards of Medical Care in Diabetes(ADA). Blood BLOOD SPECIMEN / Unknown 04/17/2024 10:16 AM WILDLIFE CONTROL AGENT 04/17/2024 10:16 AM WILDLIFE CONTROL AGENT Rosamaria OBRIEN CHEMISTRY Final Resu lt [facility] [address] [place] [address], [place] [phone] [facility] [address] [place] [address] * LIPID PANEL W REFLEX MEASURED LDL (04/17/2024 10:16 AM WILDLIFE CONTROL AGENT) CHOLESTEROL, TOTAL 145 <200 mg/dL [facility] [...] LDL-C. Parrish CUELLAR et al. JULIEN. 2013;310(19): 2673-3865 (http://education.Darkstrand/faq/YAB714) CHOL/HDLC RATIO 2.3 <5.0 (calc) [facility] NON HDL CHOLESTEROL 81 <130 mg/dL (calc) [facility] Comment: For patients with diabetes plus 1 major ASCVD risk factor, treating to a non-HDL-C goal of <100 mg/dL (LDL-C of <70 mg/dL) is considered a therapeutic option. Blood BLOOD SPECIMEN / Unknown 04/17/2024 10:16 AM WILDLIFE CONTROL AGENT 04/17/2024 10:16 AM WILDLIFE CONTROL AGENT Rosamaria OBRIEN CHEMISTRY Final Resu lt [facility] [address] [place] [address], [facility] [address] * COLONOSCOPY (12/15/2022 3:12 PM CDT) 12/15/2022 3:12 PM CDT Narrative Transcriptions Arthur Sánchez MD - 12/15/2022 4:16 PM CDT [facility] Patient Name: Vik Thakkar Procedure Date: 12/15/2022 Gender: Male Date of : 1970 Admit Type: Outpatient Procedure: Colonoscopy Proceduralist: Arthur Sánchez MD - [facility] Indications/Pre-Op Diagnosis: High risk colon cancer surveillance:Personal history of colon cancer Medications: Monitored Anesthesia Care Procedure Description: The patient had risks, benefits and alternatives explained to andgave informed consent. The patient had a stable cardiopulmonary status and judged an adequate candidate for conscious sedation. The endoscope [id number] was passed through the anus andadvanced to [...] 4TH GENERATION (10/01/2022 3:44 PM CDT) Pathologist [facility] HIV Scr 4th Gen Non Reactive Non Reactive 10/05/2022 1:09 PM CDT [facility]) Comment: HIV Negative HIV-1/HIV-2 antibodies and HIV-1 p24 antigen were NOT detected. There is no laboratory evidence of HIV infection. Blood BLOOD SPECIMEN / Unknown Venipuncture / Unknown 10/01/2022 3:44 PM CDT 10/01/2022 3:46 PM CDT Narrative [facility] ([facility]) - 10/05/2022 1:09 PM CDT Performed at: [address] [place] [id number] Draft Roller Picker: Sudheer Yanez MD, Phone: [phone] Gavin OBRIEN LABORATORY Fin al Result [facility] ([facility]) [address] [place] [address], * ANTI HCV (12/26/2021 5:58 AM CDT) Pathologist [facility] HEPATITIS C ANTIBODY Non-React fuentes Non-React fuentes 12/28/2021 5:08 PM CDT [facility] Comment:Antibodies to HCV no t detected; does not exclude the possibility of exposure to HCV. Blood BLOOD SPECIMEN / Unknown Venipuncture / Unknown 12/26/2021 5:58 AM CDT 12/26/2021 6:33 AM CDT Gavin OBRIEN SEND OUTS Fin al Result [facility] [address] [place] [address], [place] from Last 3 Months or Most [...] 06/02/2020 Insurance MEDICARE PART A HB ONLY [employer] [facility] HB ONLY [facility] PB ONLY [address] [id number] Advance Directives * Full Code (Latest Code [...] Code Status Discussion: Reviewed Preferences Care Teams Sifter Operator Relationship Specialty Start Date End Date Rosamaria Garcia [place] [facility] [place] [address] PCP - General Physician [employer] Counterperson 12/21/22 Radha Baires ECONOMIC DEVELOPMENT MANAGER Psychiatry Nurse Practitioner 07/02/16 Rosamaria Dunn Cancer Nurse Coordinator Registered Nurse 11/15/16 Alison Otto, [facility] [address] [place] [address] [facility] 01/18/17 Christopher Collins MBBS [address] [place] [address] Oncology Oncology 01/11/17 Nik Flores LSW [address] [place] [address] Mortgage Assistant 01/28/17
--- OUTSIDE RECORDS SUMMARY | 2024-07-12 12:17 | XMS_ITS | Encounter Summary ---
Author Organization [place] Address [address] [facility] [place] [address] Care Team Providers Care Mailroom Manager Name Role Phone Kedar Tello MD Unavailable [phone] Rosamaria Garcia PA-C Primary Care Provider [phone] Encounter Details Date Type Department Care Team (Late st Contact Info) Description 06/19/2024 8:00 AM CONCRETE ANALYST Hospital Encounter [facility] [address] [place] [address] Hugo Sainz MD [facility] [address] [place] [address] Social History Tobacco Use Types Packs/Day Years [...] on file Legal Sex Male 5:19 AM CONCRETE ANALYST Gender Identity Not on file Sexual Orientation Not on file documented as of this encounter Plan of Treatment Not on file documented as of this encounter Visit Diagnoses Not on filedocumented in this encounter Care Teams Mailroom Manager Relationship Specialty Start Date End Date Rosamaria Garcia PA-C [address] [place] [address] PCP - General 12/15/23 [place] [address] [place] [address] Assigned Gastroenterology Provider 01/29/23 documented as of this encounter
[2024-07-12 12:21] VITALS: BP 155/85
[2024-07-12 12:36] VITALS: BP 147/92; PULSE 68; O2SAT 100
== END 2024-07-12 12:50 | disposition home or self-care (01) ==
PROVIDERS: Emergency Provider Student in an Organized Health Care Education/Training Program; PCP Physician Assistant
DX: T82.838A Hemorrhage due to vascular prosthetic devices, implants and grafts, initial encounter (principal)
CPT/HCPCS: 12001; 99283; J3010

== ENCOUNTER 2024-07-13 12:54 | Outpatient (CLI) | payer MEDICARE, SELFPAY | END 2024-07-13 12:55 | disposition home or self-care (01) | LOC: AMB 07-16 08:57 | PROVIDERS: PCP Physician Assistant; Visit Provider Internal Medicine | DX: M79.622 Pain in left upper arm (principal); T82.898A Other specified complication of vascular prosthetic devices, implants and grafts, initial encounter | CPT/HCPCS: A0425; A0429 ==

== ENCOUNTER 2024-08-23 01:11 | Outpatient (CLI) | payer MEDICARE, OTHER, SELFPAY | END 2024-08-23 01:12 | disposition home or self-care (01) | LOC: AMB 08-24 10:27 | PROVIDERS: PCP Physician Assistant; Visit Provider Family Medicine | DX: R10.9 Unspecified abdominal pain (principal) | CPT/HCPCS: A0425; A0427 ==

== ENCOUNTER 2024-08-23 01:40 | Emergency (ER) | payer MEDICARE, OTHER, SELFPAY ==
[2024-08-23] VITALS (8 sets, daily range): BP systolic 121–127; BP diastolic 86–90; PULSE 63–72; RESP 16–18; TEMP 36.7; O2SAT 100; BMI 22.5
--- OUTSIDE RECORDS SUMMARY | 2024-08-23 01:43 | XMS_ITS | Clinical Summary ---
Author Organization [facility] Address [address] [place] [address] Care Team Providers Care Supervisor Pairing And Inspecting Name Role Phone Radha Baires BUSINESS BANKING SALES ASSISTANT Unavailable Unavailable Rosamaria Dunn Unavailable Unavailable Alison Otto WELDER REPAIR Unavailable [phone] Christopher Collins MBBS Unavailable [phone] Nik Flores GUITAR INSTRUCTOR Unavailable [phone] Rosamaria Garcia Primary Care Provider [phone] Allergies Active Allergy Reactions Criticality Noted Date [...] Active aspirin (ECOTRIN) 81 mg enteric coated tabletIndications: Chronic ischemic heart disease, unspecified Take 1 Tablet (81 mg) by mouth once daily with a meal. 0 12/18/19 23 Active famotidine (PEPCID) 20 mg tabletIndications: Abdominal pain, unspecified abdominal location Take 1 Tablet (20 mg) by mouth two times daily. 180 Tablet 3 12/21/19 23 Active lidocaine 5 % topical patchIndications:T horacic myofascial strain, initial encounter Apply on dry, clean, hairless skin. Apply 1 patch to painful area of skin for up to to 12 hours within 24 hour period. 30 Patch 11 01/07/20 23 Active sennosides (Suyapa-ulysses) 8.6 mg tabletIndications: Constipation, acute Take 1 Tablet (8.6 mg) by mouth 2 times daily if needed for Constipation. 60 Tablet 3 03/31/20 23 Active aluminum chloride (Drysol) 20 % external solutionIndication s:Hyperhidrosis Apply topically to affected area(s) at bedtime. Use up to 2-3 times a week 50 mL 2 09/13/19 24 Active methocarbamoL (ROBAXIN) 750 mg tabletIndications: S/P arthroscopy of right shoulder Take 1 Tablet (750 mg) by mouth every 6 hours if needed for Muscle Spasm. 30 Tablet 10/27/19 24 Active ondansetron (ZOFRAN) 4 mg tabletIndications: S/P arthroscopy of right shoulder Take 1 Tablet (4 mg) by mouth every 8 hours if needed for Nausea/Vomiti ng. 20 Tablet 10/28/2023 9:13 AM CDT 10/27/19 24 Active durable medical equipment (DME)Indications:P eripheral polyneuropathy,Lum bar foraminal stenosis,ESRD on hemodialysis (HC),Spinal stenosis of lumbar region without neurogenic claudication Electric bicycle to commute 1 Each 12/22/19 24 Active amLODIPine (NORVASC) 10 mg tabletIndications: Hypertension TAKE ONE TABLET (10 MG) BY MOUTH ONCE DAILY. 90 Tablet 3 02/28/20 24 Active metoprolol tartrate (LOPRESSOR) 25 mg tabletIndications: Hypertension TAKE ONE TABLET (25 MG) BY MOUTH TWO TIMES DAILY. 180 Tablet 3 02/28/20 24 Active nortriptyline (PAMELOR) 10 mg capsuleIndications :Gastroparesis Take 2 Capsules (20 mg) by mouth at bedtime. 180 Capsule 3 02/28/20 24 Active ondansetron (ZOFRAN ODT) 8 mg disintegrating tabletIndications: Nausea and vomiting, unspecified vomiting type Place 1 Tablet (8 mg) on the tongue every 8 hours if needed for Nausea/Vomiti ng. 30 Tablet 2 03/01/20 24 Active metoclopramide (REGLAN) 5 mg tabletIndications: Gastroparesis Take 2.5 mg up to 2 times a day before meals if needed for severe abdominal pain/nausea/v omiting 30 Tablet 1 03/01/20 24 Active dicyclomine (BENTYL) 20 mg tabletIndications: Irritable bowel syndrome with both constipation and diarrhea Take 1 tablet up to 2 times a day for IBS cramping/pain 60 Tablet 2 05/31/19 25 Active diclofenac topical (VOLTAREN) 1 % gelIndications:Michael ateral hand pain Apply 2 g up to bid for hand pain 450 g 2 06/04/19 25 Active atorvastatin (LIPITOR) 40 mg tabletIndications: Other hyperlipidemia Take 1 Tablet (40 mg) by mouth once daily with evening meal. 90 Tablet 3 07/13/19 25 Active tiZANidine 2 mg tabletIndications: Muscle spasm TAKE 1 TABLET UP TO 2 TIMES DAILY IF NEEDED FOR MUSCLE SPASM 60 Tablet 3 07/25/19 25 Active oxyCODONE 10 mg tabletIndications: Controlled substance agreement signed,Lumbar foraminal stenosis,Chronic pain of both shoulders,Chronic thoracic back pain, unspecified back pain laterality Take 1.5 Tablets (15 mg) by mouth four times daily. 180 Tablet 08/02/19 25 Active oxyCODONE 10 mg tabletIndications: Controlled substance agreement signed,Lumbar foraminal stenosis,Chronic pain of both shoulders,Chronic thoracic back pain, unspecified back pain laterality Take 1.5 Tablets (15 mg) by mouth four times daily. 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 Arroyo 11/14/2023 Right shoulder pain 06/28/2023 Controlled substance agreement signed 05/11/2023 Claudication of both lower extremities 4 Depression, recurrent 09/13/2022 Degeneration of cervical intervertebral [...] & Plan: Bilateral great toe Stable Encouraged entry level software developer consult and patient agree Type 2 diabetes [...] renal failure (ARF) 05/06/2020 Acute pancreatitis 08/23/2019 Hyperkalemia 08/23/2019 06/02/2020 Schmorl's nodes 07/13/2019 05/11/2023 Lumbar spondylolysis 07/13/2019 020 Chronic bilateral low back p ain without sciatica 11/29/2018 05/11/2023 Chronic abdominal pain 11/29/201805/11 Dialysis patient 11/06/2018 08/23/2019 Depression 11/01/2018 08/23/2019 Acute abdominal pain 11/01/2018 020 Hyperkalemia 11/01/2018 08/23/2019 Bilateral hip pain 09/18/2018 Acute low back pain 09/14/2018 08/23/19 20 [...] Assessment & Plan: ESRD Stable Dialysis at: [facility] on: MWF via fistula Diet: [...] with patient to get the information from [facility]. Plan Continue therapy Continue follow up SW [...] M, W, F with Dr. Brown in [place]. Dependence on renal dialysis 06/08/2011 08/23/2019 Overview (09/21/2017): Overview: Overview: Dialysis M, W, F with Dr. Brown in [place]. ACP (advance care planning) 03/14/2011 05/11/2023 Overview (03/14/2011): Patient has identified Health Care Agent(s): Patient verbally identifies his significant other as health care decision maker however, she does not have a phone number at present. To contact Patient's family/SO contact can be made with Abhay Tovar (brother in law) [phone] and Thomas Carty [phone] Friend Patient has Advance Care Plan Documents [...] IV (severe) 07/08/2009 02/11/2015 Overview (03/20/2014): cleared 2014 Cannabis abuse 07/08/2009 01/09/2018 End stage renal [...] Encounters Date Type Department Care Team Description 08/15/2024 Telephone [facility] Providers [address] [place] [address] Jovanna Sands, caramel cutter machine Eval 07/31/2024 Refill [facility] [address] [place] [address] Rosamaria Garcia PA Refill Request (oxyCODONE 10 mg tablet ) 07/31/2024 Telephone [facility] [address] [place] [address] Dary Longoria MD Results 07/26/2024 10:30 AM CDT Procedure Only [facility] [address] [facility] [address] [place] [address] Dary Longoria MD Procedure 07/26/2024 Travel 07/24/2024 Refill [facility] [address] [place] [address] Rosamaria Garcia PA Refill Request (Tizanidine) 07/11/2024 Telephone [facility] [address] [place] [address] Rosamaria Garcia PA Medication Management (atorvastatin (LIPITOR) 40 mg tablet) 07/09/2024 Patient Outreach [facility] [address] [place] [address] Sobeida Prasad, RN Student Primary RN Care Management; Hospital F/U (Lace=20) 07/05/2024 3:45 PM DONKEY DOCTOR - 07/05/2024 4:40 PM DONKEY DOCTOR Surgery [address] [address] Juan Francisco Don MD CYSTOSCOPY 07/05/2024 3:18 PM DONKEY DOCTOR Anesthesia Event [address] [address] Mejia Carrera MD 07/05/2024 1:28 PM DONKEY DOCTOR - 07/06/2024 1:31 PM DONKEY DOCTOR Hospital Encounter [address] [address] Juan Francisco Don MD Vanderloo, Matthew Robert, MD Microhematuria (Primary Dx); ESRD on hemodialysis (HC) Discharge Disposition: Home Self Care 07/05/2024 Travel 07/03/2024 3:35 PM DONKEY DOCTOR Office Visit [facility] [address] [place] [address] Olivier Phillips MD Preoperative Exam (Cystoscopy 07/05) 07/03/2024 11:50 AM DONKEY DOCTOR Office Visit [facility] [address] [facility] [address] [place] [address] Jasmin Pugh PA Derm Problem (lesions) 07/03/2024 Travel 06/29/2024 Refill [facility] [address] [place] [address] Rosamaria Garcia PA Refill Request (oxyCODONE 10 mg tablet) 06/04/2024 8:50 AM DONKEY DOCTOR Office Visit [facility] [address] [place] [address] Rosamaria Garcia PA Hand Pain/problem (Bilateral hand and foot pain-arthritis pain) 06/04/2024 Travel 05/31/[address] [address] Rosamaria Garcia PA Refill Request (oxyCODONE 10 mg tablet) 05/30/[address] [address] Rosamaria Garcia PA Refill Request (Dicyclomine) 05/30/[address] [address] Rosamaria Garcia PA Medication Management (dicyclomine (BENTYL) 20 mg tablet) 05/30/[address] [address] Rosamaria Garcia PA Results 05/29/2024 2:50 PM DONKEY DOCTOR Office Visit [address] [address] Rosamaria Garcia PA Preoperative Exam (Dr. Florencia Young-cystoscopy) 05/29/2024 Travel 05/25/2024 Travel from Last 3 Months Immunizations Immunization [...] on file Legal Sex Male 5:23 AM DONKEY DOCTOR Gender Identity Not on file Sexual Orientation Not on file Occupation Industry Job Start Date Job End Date unempolyed Not on file Not on file Not on file Obstetrics History Last Filed Vital Signs Vital Sign Reading Time Taken Comments Blood Pressure 144/80 07/26/2024 10:29 AM CDT Pulse 80 07/06/2024 12:00 PM DONKEY DOCTOR Temperature 36.3 C (97.4 F) 07/06/2024 12:00 AM DONKEY DOCTOR Respiratory Rate 18 07/06/2024 4:00 AM DONKEY DOCTOR Oxygen Saturation 100% 07/06/2024 12:00 PM DONKEY DOCTOR Inhaled Oxygen Concentration - - Weight 62.4 kg (137 lb 8 oz) 07/06/2024 6:00 AM DONKEY DOCTOR Height 166.4 cm (5' 5.5) 07/05/2024 1:39 PM DONKEY DOCTOR Body Mass Index 22.53 07/05/2024 1:39 PM DONKEY DOCTOR Plan of Treatment Health Maintenance Due Date Last Done Comments Zoster (shingles) series for age 50+ (1 of 2) 2021 Tetanus booster 10/27/2021 10/28/2011 Hepatitis B series for Diabe teri (4 of 4 - Risk Dialysis Recombivax 3-dose series) 09/17/2022 09/17/2021, 04/03/2021, 07/11/2020 COVID-19 vaccine series ( season) 2024 06/23/2020, 05/30/2020 Pneumococcal series for [...] Card MD Medical Devices Implanted Type Area Technician'S Helper Device Identifier Shelf Expiration Date Model / Serial / Lot Graft Vasc 8mm 40cm Propaten Thin Wall - [id number] Implanted:Qty: 1 on 04/10/2015 by Ash Zambrano MD at [facility] Left: Arm [employer] 10/23/2018 [id number] # / / Power Port Isp Mri 6fr [id number] - Stan Only - [id number] Implanted:Qty: 1 on 01/27/2017 by Kiet Hernandez DO at [facility] N/A: Chest [employer] 03/01/2018 [id number] / / [id number] Description:PowerPort isp M. R.I. Implantable Port Sys Ancr Sut 4.75mm Biocomposite - [id number] Implanted:Qty: 1 on 10/27/2023 by Milind Arroyo MD at [facility] Right: Shoulder [employer] 06/30/2027 [id number] / / [id number] Procedures Procedure Name Priority Date/Time Associated Diagnosis Comments PATH TISSUE EXAM Routine 07/26/2024 10:30 AM CDT Epidermoid cyst GLUCOSE METER Timed 07/06/2024 10:52 AM DONKEY DOCTOR GLUCOSE METER Timed 07/06/2024 6:59 AM DONKEY DOCTOR HEMOGLOBIN A1C MONITORING (POCT) Early AM 07/06/2024 5:19 AM DONKEY DOCTOR GLUCOSE METER Timed 07/05/2024 11:51 PM DONKEY DOCTOR GLUCOSE METER Timed 07/05/2024 11:01 PM DONKEY DOCTOR GLUCOSE METER Timed 07/05/2024 9:47 PM DONKEY DOCTOR POTASSIUM STAT 07/05/2024 9:26 PM DONKEY DOCTOR GLUCOSE METER Timed 07/05/2024 8:47 PM DONKEY DOCTOR POTASSIUM Timed 07/05/2024 8:12 PM DONKEY DOCTOR EKG 12 LEAD STAT 07/05/2024 8:06 PM DONKEY DOCTOR GLUCOSE METER Timed 07/05/2024 7:42 PM DONKEY DOCTOR GLUCOSE METER Timed 07/05/2024 6:41 PM DONKEY DOCTOR CBC WITH AUTO DIFFERENTIAL STAT 07/05/2024 6:19 PM DONKEY DOCTOR HEPATIC FUNCTION PANEL STAT 07/05/2024 6:19 PM DONKEY DOCTOR CBC WITH AUTO DIFFERENTIAL STAT 07/05/2024 6:19 PM DONKEY DOCTOR BASIC METABOLIC PANEL STAT 07/05/2024 6:19 PM DONKEY DOCTOR GLUCOSE METER Timed 07/05/2024 5:51 PM DONKEY DOCTOR POTASSIUM STAT 07/05/2024 5:29 PM DONKEY DOCTOR GLUCOSE METER Timed 07/05/2024 5:00 PM DONKEY DOCTOR GLUCOSE METER Timed 07/05/2024 4:37 PM DONKEY DOCTOR SUPRAGLOTTIC-LMA Routine 07/05/2024 3:33 PM DONKEY DOCTOR CYSTOSCOPY Tier 2 07/05/2024 3:07 PM DONKEY DOCTOR Hx bladder Cancer Case Notes BOP PT DOES NOT HAVE SOMEONE to stay with him for 24 hours post surgery GLUCOSE METER Timed 07/05/2024 2:59 PM DONKEY DOCTOR POTASSIUM KOJO 07/05/2024 2:48 PM DONKEY DOCTOR GLUCOSE METER Timed 07/05/2024 2:31 PM DONKEY DOCTOR SCAN-CARDIAC STRIP 07/05/2024 12:00 AM DONKEY DOCTOR SCAN-CARDIAC STRIP 07/05/2024 12:00 AM DONKEY DOCTOR SCAN-CARDIAC STRIP 07/05/2024 12:00 AM DONKEY DOCTOR CBC WITH AUTO DIFFERENTIAL Routine 07/03/2024 4:50 PM DONKEY DOCTOR Preoperative general physical examination CBC WITH AUTO DIFFERENTIAL Routine 05/29/2024 3:28 PM DONKEY DOCTOR Pre-op exam LIPID PANEL W REFLEX MEASURED LDL Routine 04/17/2024 10:16 AM DONKEY DOCTOR Type 2 diabetes mellitus with chronic kidney [...] Recently Relevant to Health Maintenance Results * PATH TISSUE EXAM (07/26/2024 10:30 AM CDT) Case Report Pathology Report Case: [id number] Authorizing Provider: Dary Longoria, Collected: 07/26/2024 1030 MD Ordering Location: [facility] Received: 07/26/2024 1613 Clinic Pathologist: María Senior MD Specimen: Skin, Left posterior ear 07/31/2024 9:41 AM CDT [facility] [employer] [facility] Final Diagnosis SKIN, LEFT POSTERIOR EAR, EXCISION: 1. Epidermal inclusion cyst 2. Negative for malignancy 07/31/2024 9:41 AM CDT [facility] [employer] [facility] at 0941 CDT Clinical Information Cyst rule out other 07/31/2024 9:41 AM CDT [facility] [employer] [facility] Gross Description A) Received in formalin, labeled with the patient's name and L posterior ear, is a 1.6 x 1.2 x 1 cm cystic structure which is partially surfaced by wood skin. Specimen is inked blue and sectioned revealing a cystic cavity filled with wood-white material. Insights Strategist sections are submitted 1 cassette. JPW 07/27/2024 07/31/2024 9:41 AM CDT [facility] [employer] [facility] Microscopic Description The final diagnosis is based on microscopic examination of appropriate sections of all specimens. There is a cystic collection of non-atypical keratinizing squamous epithelium within the dermis. The presence of blue ink is confirmed on tissue sections. 07/31/2024 9:41 AM CDT [facility] [employer] [facility] Additional Information Interpreted at [facility] [employer] [facility], Central Laboratory - [address] [place] [address] S. [facility] [address], [place] [address] 07/31/2024 9:41 AM CDT [facility] [employer] [facility] Other SPECIMEN FROM SKIN / Unknown Non-Blood / Unknown 07/26/2024 10:30 AM CDT 07/26/2024 4:13 PM CDT Dary Longoria MD PATHOLOGY/CYTOLOGY Fi nal Result Performing Organization Address City/[facility]/ZIP Co de Phone Number [facility] [address] [place] [address], * (ABNORMAL) GLUCOSE METER (07/06/2024 10:52 AM DONKEY DOCTOR) Only the most recent of13 resultswithin the time period is included. GLUCOSE METER 111(H) 65 - 100 mg/dL 07/06/2024 3:37 PM DONKEY DOCTOR [facility] Blood BLOOD SPECIMEN / Unknown 07/06/2024 10:52 AM DONKEY DOCTOR 07/06/2024 3:37 PM DONKEY DOCTOR Gavin Mcdonald MD CHEMISTRY Yamilet l Result Performing Organization Address City/[facility] Co de Phone Number [place] [phone] [place] [address] * Hemoglobin A1C (07/06/2024 5:19 AM DONKEY DOCTOR) HEMOGLOBIN A1C MONITORING (POCT) 5.1 <=6.4 % 07/06/2024 7:51 AM DONKEY DOCTOR [facility] Blood BLOOD SPECIMEN / Unknown Venipuncture / Unknown 07/06/2024 5:19 AM DONKEY DOCTOR 07/06/2024 5:40 AM DONKEY DOCTOR Narrative [facility] - 07/06/2024 7:51 AM DONKEY DOCTOR (<=6.9%) Indicates good control (7.0% to 7.9%) Indicates fair control (>=8.0%) Indicates poor control NOTE: These thresholds are guidelines and individual targets may vary. Falsely low levels may be seen with: Recent Transfusion, Recent Significant Blood Loss, Hemolytic Diseases, or Falsely elevated levels may be seen with: Untreated Anemias, Splenectomy Gavin Mcdonald MD CHEMISTRY Yamilet l Result Performing Organization Address City/[facility] Co de Phone Number [address] [address] * Potassium (07/05/2024 9:26 PM DONKEY DOCTOR) Only the most recent of4 resultswithin the time period is included. [facility] POTASSIUM 5.1 3.5 - 5.1 mmol/L 07/05/2024 9:50 PM DONKEY DOCTOR [facility] Blood BLOOD SPECIMEN / Unknown Butterfly / Unknown 07/05/2024 9:26 PM DONKEY DOCTOR 07/05/2024 9:31 PM DONKEY DOCTOR Gavin Mcdonald MD CHEMISTRY Yamilet l Result Performing Organization Address [facility] de Phone Number [address] [address] * 12 Lead EKG (07/05/2024 8:06 PM DONKEY DOCTOR) [facility] Interpretation Sinus rhythm with 1st degree A-V [...] NOW QTc 455 ms BEYOND NOW P [place] 74 degrees BEYOND NOW R [place] -57 degrees BEYOND NOW T [place] 54 degrees BEYOND NOW 07/05/2024 8:06 PM DONKEY DOCTOR 07/11/2024 7:40 AM CDT Gavin Mcdonald MD EKG ORD Yamilet l Result Performing Organization Address City/[facility] Co de Phone Number BEYOND NOW [place], [place] * (ABNORMAL) CBC WITH AUTO DIFFERENTIAL (07/05/2024 6:19 PM DONKEY DOCTOR) Pathologist [facility] WHITE BLOOD COUNT 9.2 4.5 - 11.0 thou/cu mm 07/05/2024 6:23 PM DONKEY DOCTOR [facility] RED BLOOD COUNT 3.39(L) 4.30 - 5.90 mil/cu mm 07/05/2024 6:23 PM [facility] HEMOGLOBIN 10.7(L) 13.5 - 17.5 g/dL 07/05/2024 6:23 PM [facility] HEMATOCRIT 33.7(L) 37.0 - 53.0 % 07/05/2024 6:23 PM [facility] MCV 99 80 - 100 fL 07/05/2024 6:23 PM [facility] MCH 31.6 26.0 - 34.0 pg 07/05/2024 6:23 PM [facility] MCHC 31.8(L) 32.0 - 36.0 g/dL 07/05/2024 6:23 PM [facility] RDW 16.3(H) 11.5 - 15.5 % 07/05/2024 6:23 PM [facility] PLATELET COUNT 167 140 - 440 thou/cu mm 07/05/2024 6:23 PM [facility] MPV 9.0 6.5 - 11.0 fL 07/05/2024 6:23 PM [facility] NRBC 0.0 % 07/05/2024 6:23 PM [facility] ABS NRBC 0.0 thou /cu mm 07/05/2024 6:23 PM [facility] % NEUT 71.3 % 07/05/2024 6:23 PM [facility] % LYMPH 18.6 % 07/05/2024 6:23 PM [facility] % MONO 7.3 % 07/05/2024 6:23 PM [facility] % EOS 2.1 % 07/05/2024 6:23 PM [facility] % BASO 0.4 % 07/05/2024 6:23 PM [facility] % IMMATURE GRAN (METAS,MYELOS,GA OS) 0.3 % 07/05/2024 6:23 PM [facility] ABSOLUTE NEUTROPHILS 6.5 1.7 - 7.0 thou/cu mm 07/05/2024 6:23 PM [facility] ABSOLUTE LYMPHOCYTES 1.7 0.9 - 2.9 thou/cu mm 07/05/2024 6:23 PM [facility] ABSOLUTE MONOCYTES 0.7 <0.9 thou/cu mm 07/05/2024 6:23 PM DONKEY DOCTOR [facility] ABSOLUTE EOSINOPHILS 0.2 <0.5 thou/cu mm 07/05/2024 6:23 PM DONKEY DOCTOR [facility] ABSOLUTE BASOPHILS 0.0 <0.3 thou/cu mm 07/05/2024 6:23 PM DONKEY DOCTOR [facility] ABSOLUTE IMMATURE GRANULOCYTES(MET ,MYELOS,PROS) 0.0 <0.3 thou/cu mm 07/05/2024 6:23 PM DONKEY DOCTOR [facility] Blood BLOOD SPECIMEN / Unknown Butterfly / Unknown 07/05/2024 6:19 PM DONKEY DOCTOR 07/05/2024 6:21 PM DONKEY DOCTOR us Gavin Mcdonald MD HEMATOLOGY Yamilet l Result [facility] [address] [place] [address] * (ABNORMAL) Hepatic Function Panel (07/05/2024 6:19 PM DONKEY DOCTOR) ALBUMIN 3.8(L) 4.0 - 4.9 g/dL 07/05/2024 6:43 PM [facility] PROTEIN,TOTAL 6.4 6.0 - 8.0 g/dL 07/05/2024 6:43 PM [facility] BILIRUBIN,TOTAL 0.3 0.0 - 1.2 mg/dL 07/05/2024 6:43 PM [facility] BILIRUBIN,DIRECT 0.1 0.0 - 0.2 mg/dL 07/05/2024 6:43 PM [facility] BILIRUBIN,INDIRE CT 0.2 0.2 - 0.8 mg/dL 07/05/2024 6:43 PM [facility] ALK PHOSPHATASE 75 40 - 129 IU/L 07/05/2024 6:43 PM [facility] ALT (SGPT) 21 10 - 50 IU/L 07/05/2024 6:43 PM [facility] AST (SGOT) 21 10 - 50 IU/L 07/05/2024 6:43 PM [facility] Blood BLOOD SPECIMEN / Unknown Butterfly / Unknown 07/05/2024 6:19 PM DONKEY DOCTOR 07/05/2024 6:21 PM DONKEY DOCTOR Gavin Mcdonald MD CHEMISTRY Yamilet l Result [facility] [address] [place] [address] * (ABNORMAL) Basic Metabolic Panel (07/05/2024 6:19 PM DONKEY DOCTOR) SODIUM 134(L) 136 - 145 mmol/L 07/05/2024 6:52 PM [facility] POTASSIUM 6.1(HH) 3.5 - 5.1 mmol/L 07/05/2024 6:52 PM [facility] CHLORIDE 101 98 - 107 mmol/L 07/05/2024 6:52 PM [facility] CO2,TOTAL 20(L) 22 - 29 mmol/L 07/05/2024 6:52 PM [facility] ANION GAP 13 5 - 18 07/05/2024 6:52 PM [facility] GLUCOSE 127(H) 70 - 99 mg/dL 07/05/2024 6:52 PM [facility] CALCIUM 9.9 8.8 - 10.4 mg/dL 07/05/2024 6:52 PM [facility] Comment: Reference ranges for this test were updated on 03/06/2024 to reflect our healthy population more accurately. Reference range changes are not retroactively applied to results, but previous results using the same methodology can be interpreted in the context of the new reference range. BUN 68(H) 6 - 20 mg/dL 07/05/2024 6:52 PM [facility] CREATININE 12.60(HH) 0.70 - 1.20 mg/dL 07/05/2024 6:52 PM [facility] BUN/CREAT RATIO 5(L) 10 - 20 6:52 PM [facility] eGFR 4(L) >90 mL/min/1. 73m2 07/05/2024 6:52 PM [facility] Comment:As of 2021, eG FR is calculated by the CKD-EPI creatinine equation without race adjustment. eGFR can be influenced by muscle mass, exercise, and diet. The reported eGFR is an estimation only and is only applicable if the renal function is stable. Blood BLOOD SPECIMEN / Unknown Butterfly / Unknown 07/05/2024 6:19 PM DONKEY DOCTOR 07/05/2024 6:21 PM DONKEY DOCTOR us Gavin Mcdonald MD CHEMISTRY Yamilet l Result [place] [id number] * Supraglottic (07/05/2024 3:33 PM DONKEY DOCTOR) Narrative Jacquelyn Wolf CRNA - 07/05/2024 3:33 PM DONKEY DOCTOR Jacquelyn Wolf CRNA 07/05/2024 3:34 PM Procedure: Supraglottic Patient location during procedure: OR Supraglottic Airway Properties Mask Ventilation: not attempted Type: classic Tube Size: 5 Insertion Attempts: 1 Placement Verification: auscultation and CO2 detection Assessment Assessment: atraumatic and dentition unchanged us Mejia Carrera MD ANESTHESIA PX NOTE ORDERA BLES Final Result * SCAN-CARDIAC STRIP (07/05/2024 12:00 AM DONKEY DOCTOR) Narrative 07/05/2024 12:00 AM DONKEY DOCTOR Ordered by an unspecified provider. us Other Clinical Staff OTHER Final Resul t * SCAN-CARDIAC STRIP (07/05/2024 12:00 AM DONKEY DOCTOR) Narrative 07/05/2024 12:00 AM DONKEY DOCTOR Ordered by an unspecified provider. us Other Clinical Staff OTHER Final Resul t * SCAN-CARDIAC STRIP (07/05/2024 12:00 AM DONKEY DOCTOR) Narrative 07/05/2024 12:00 AM DONKEY DOCTOR Ordered by an unspecified provider. us Other Clinical Staff OTHER Final Resul t * (ABNORMAL) CBC AND DIFFERENTIAL (07/03/2024 4:50 PM DONKEY DOCTOR) Only the most recent of2 resultswithin the [...] BLOOD SPECIMEN / Unknown 07/03/2024 4:50 PM DONKEY DOCTOR 07/03/2024 4:50 PM DONKEY DOCTOR us Olivier Phillips MD HEMATOLOGY Final Resu lt Performing Organization Address [facility]/ZIP Co de Phone Number [employer] [facility] [address] [place] [address], [place] [phone] [facility] [address] [place] [address] * LIPID PANEL W REFLEX MEASURED LDL (04/17/2024 10:16 AM DONKEY DOCTOR) CHOLESTEROL, TOTAL 145 <200 mg/dL [facility] [...] equation in the estimation of LDL-C. Parrish SS et al. JULIEN. 2013;310(19): 5141-1249 (http://education.[employer]/faq/ZWA597) CHOL/HDLC RATIO 2.3 <5.0 (calc) [facility] NON HDL CHOLESTEROL 81 <130 mg/dL (calc) [facility] Comment: For patients with diabetes plus 1 major ASCVD risk factor, treating to a non-HDL-C goal of <100 mg/dL (LDL-C of <70 mg/dL) is considered a therapeutic option. Blood BLOOD SPECIMEN / Unknown 04/17/2024 10:16 AM DONKEY DOCTOR 04/17/2024 10:16 AM DONKEY DOCTOR us Rosamaria OBRIEN CHEMISTRY Final Resu lt Performing Organization Address City/[facility]/ZIP Co de Phone Number [employer] [facility] [address] [place] [address], [facility] [address] [place] [address] * COLONOSCOPY (12/15/2022 3:12 PM CDT) 12/15/2022 3:12 PM CDT Narrative Transcriptions Arthur Sánchez MD - 12/15/2022 4:16 PM CDT Procedural Care Center Patient Name: Vik Thakkar Procedure Date: 12/15/2022 Gender: Male Date of : 1970 Admit Type: Outpatient Procedure: Colonoscopy Proceduralist: Arthur Sánchez MD - [facility] Indications/Pre-Op Diagnosis: High risk colon cancer surveillance:Personal history of colon cancer Medications: Monitored Anesthesia Care Procedure Description: The patient had risks, benefits and alternatives explained to andgave informed consent. The patient had a stable cardiopulmonary status and judged an adequate candidate for conscious sedation. The endoscope [id number] was passed through the anus andadvanced to [...] Reactive Non Reactive 10/05/2022 1:09 PM CDT [facility] Comment: HIV Negative HIV-1/HIV-2 antibodies and HIV-1 p24 antigen were NOT detected. There is no laboratory evidence of HIV infection. Blood BLOOD SPECIMEN / Unknown Venipuncture / Unknown 10/01/2022 3:44 PM CDT 10/01/2022 3:46 PM CDT N[facility]ative [facility] - 10/05/2022 1:09 PM CDT Performed at: [address] [place] [id number] Ferryboat Operator: Sudheer Yanez MD, Phone: [phone] Gavin OBRIEN LABORATORY Fin al Result [facility] ([facility]) [facility] [place] [address], * ANTI HCV (12/26/2021 5:58 AM CDT) Pathologist [facility] HEPATITIS C ANTIBODY Non-React fuentes Non-React fuentes 12/28/2021 5:08 PM CDT [facility] Comment:Antibodies to HCV no t detected; does not exclude the possibility of exposure to HCV. Blood BLOOD SPECIMEN / Unknown Venipuncture / Unknown 12/26/2021 5:58 AM CDT 12/26/2021 6:33 AM CDT Gavin OBRIEN SEND OUTS Fin al Result [facility] [address] [place] [address], from Last 3 Months or Most Recently [...] presenting with C diff symptoms CDI + 5/16/18 + recurrent episodes 06/02/2020 06/02/2020 Insurance MEDICARE PART A HB ONLY [employer] [facility] [place] [address] [facility] K[facility] ACQU[facility] ONLY Advance Directives * Full Code (Latest Code [...] Code Status Discussion: Reviewed Preferences Care Teams Supervisor Pairing And Inspecting Relationship Specialty Start Date End Date Rosamaria Garcia PA [address] [place] [address] PCP - General Physician Natural History Collections Curator 12/21/22 Radha Baires, BUSINESS BANKING SALES ASSISTANT Psychiatry Nurse Practitioner 07/02/16 Rosamaria Dunn Cancer Nurse Coordinator Registered Nurse 11/15/16 Alison Otto, [facility] [address] [place] [address] [facility] Circular Saw Operator 01/18/17 Christopher Collins MBBS [address] [place] [address] Oncology Oncology 01/11/17 Mark, Nik Crowley [facility] [address] [place] [address] Vinegar Maker 01/28/17
--- OUTSIDE RECORDS SUMMARY | 2024-08-23 01:43 | XMS_ITS | Encounter Summary ---
Author Organization [place] Address [address] [facility] [place] [address] Care Team Providers Care Group Rooms Coordinator Name Role Phone Gavin Lombardo Primary Care Provi moses Unavailable Kedar Tello MD Unavailable [phone] Rosamaria Garcia PA-C Primary Care Provider [phone] Encounter Details Date Type Department Care Team (Late st Contact Info) Description 08/24/2021 External Order Results [facility] [address] [place] [address] Outside, Provider Social History Tobacco Use Types Packs/Day Years Used Date Smoking Tobacco: Every Day Cigarettes 0.5 27 Smokeless Tobacco: Never Alcohol Use Standard Drinks/Week Comments Yes 0 (1 standard drink = 0.6 oz pur e alcohol) occ. 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
--- OUTSIDE RECORDS SUMMARY | 2024-08-23 01:43 | XMS_ITS | Encounter Summary ---
Author Organization [place] Address [address] [facility] [place] [address] Care Team Providers Care Chemist Intern Name Role Phone Courtney Guardado MD Primary Care Provider [phone] Gavin Lombardo Primary Care [facility] Kedar Dang MD Unavailable [phone] Rosamaria Garcia PA-C Primary Care Provider [phone] Reason for Visit * Reason Onset Date Comments Appointment 07/19/2017 called and left patient message related to missed appointment for today Encounter Details Date Type Department Care Team (Late st Contact Info) Description 07/19/2017 Telephone [facility] [address] [place] [address] Carla Zambrano, JASMIN Appointment (called [...] on file 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 Unable to assess 01/25/2023 12:12 PM CDT documented as of this encounter Plan of Treatment Not on file documented as of this encounter Visit Diagnoses Not on filedocumented in this encounter Care Teams Chemist Intern Relationship Specialty Start Date End Date Courtney Guardado MD PCP - General 03/09/12 07/30/20 Gavin Lombardo PA PCP - General Family Practice 07/31/20 12/14/23 Rosamaria Garcia PA-C [address] [place] [address] PCP - General 12/15/23 [place] [address] [place] [address] Assigned Gastroenterology Provider 01/29/23 documented as of this encounter
--- OUTSIDE RECORDS SUMMARY | 2024-08-23 01:43 | XMS_ITS ---
Author Organization [facility] Address [address] [place] [address] Care Team Providers Care Package Sealer Machine Name Role Phone Elsewhere, Pcp Primary Care [...] M, W, F with Dr. Brown in [place]. 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 LAB BLOOD ADD-ON Final Result [facility] [address] [place] [address], [facility] DTL [facility] [address] [place] [address] * Hemoglobin A1c (08/05/2017 6:18 AM CDT) Hemoglobin A1c, B 5.2 4.2 - 5.6 % 08/08/2017 1:52 AM CDT [facility] Blood (Blood, Venous) 08/05/2017 6:18 AM CDT 08/07/2017 11:47 PM CDT us Cholo Hooks LAB BLOOD ADD-ON Final Re sult [facility] [address] [place] [address], [facility] from Last 3 Months or Most Recently Relevant to Health Maintenance
--- OUTSIDE RECORDS SUMMARY | 2024-08-23 01:43 | XMS_ITS | CONTINUITY OF CARE DOCUMENT ---
Author Name User, AMANDEEPE Address [address] [place] [address] Organization [facility] Address [address] [place] [address] [address] [place] [address] Phone [phone] Care Team Providers Care Research Subject Name Role Phone User, QIE Unavailable Unavailable ALLERGIES Allergy Name Onset Date Reaction Criticality Status Provider Or ganization PENICILLIN High Criticality active R andrew Ware[address] [facility] [address] [facility] DILAUDID High Criticality active Ra anjel Ware[address] [facility] [address] [facility] HISTORY OF MEDICATION USE Medication Instructions Status Dates Provider Indications Com ments Organization metoprolol tartrate 25 mg tablet TAKE ONE TABLET (25 MG) BY MOUTH TWO TIMES DAILY. active Judith [address] [facility] [address] [facility] lidocaine-priloc lon 2.5 %-2.5 % topical cream APPLY A SMALL AMOUNT TO SKIN THREE TIMES A WEEK APPLY TO SKIN OVER DIALYSIS ACCESS 30 MIN PRIOR TO EACH DIALYSIS active Judith [address] [facility] [address] [facility] tizanidine 2 mg tablet TAKE 1 TABLET UP TO 2 TIMES DAILY IF NEEDED FOR MUSCLE SPASM active Judith Ware[address] [facility] [address] [facility] atorvastatin 40 mg tablet TAKE ONE TABLET (40 MG) BY MOUTH AT BEDTIME. active Judith Islas [address] [facility] [address] [facility] aspirin 81 mg tablet,delayed release 1 once a day active Judith [address] [facility] [address] [facility] ondansetron 8 mg disintegrating tablet as directed active Judith [address] [facility] [address] [facility] Velphoro 500 mg chewable tablet 2 three times a day active Judith Islas [address] [place] [address] [facility] oxycodone 10 mg tablet as directed active Judith Islas [address] [place] [address] [facility] bisacodyl 10 mg rectal suppository as directed active Judith teresa [address] [place] [address] [facility] Carafate 100 mg/mL oral suspension as directed active Judith Islas [address] [place] [address] [facility] cyclobenzaprine 10 mg tablet as directed active Judith Islas [address] [place] [address] [facility] Suyapa-ulysses 8.6 mg tablet as directed active Judith Islas [address] [place] [address] [facility] hydroxyzine pamoate 25 mg capsule as directed active Judith Islas [address] [place] [address] [facility] Lasix 80 mg tablet 1 as directed active Judith Islas [address] [place] [address] [facility] lorazepam 0.5 mg tablet 1 as needed as directed active Judith Islas [address] [place] [address] [facility] RenaPlex-D 800 mcg-12.5 mg-2,000 unit tablet 1 every evening active Judith Islas [address] [place] [address] [facility]
--- OUTSIDE RECORDS SUMMARY | 2024-08-23 01:43 | XMS_ITS | Clinical Summary ---
Author Organization [facility] Address [address] [place] [address] Care Team Providers Care Atm Technician Name Role Phone Elsewhere, Pcp Primary Care Provider Unavailabl e Source Comments Patient records contain information from all sites at [facility]. For routine questions regarding patient records, call [phone] during business hours, M-F 8:00 AM - 5:00 PM Central Time. Record requests for emergency care only can be directed to [phone] at any time.[facility] Allergies Active Allergy Reactions Criticality [...] M, W, F with Dr. Brown in [place]. 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/ZIP Co de Phone Number [facility] [address] [place] [address], [email or web address] DTL [facility] [address] [place] [address] * Hemoglobin A1c (08/05/2017 6:18 AM CDT) Hemoglobin A1c, B 5.2 4.2 - 5.6 % 08/08/2017 1:52 AM CDT [facility] Blood (Blood, Venous) 08/05/2017 6:18 AM CDT 08/07/2017 11:47 PM CDT Cholo Hooks LAB BLOOD ADD-ON Final Re sult Performing Organization Address City/[facility]/ZIP Co de Phone Number [facility] [address] [place], [place] [id number] [place] [address] from Last 3 Months or Most Recently Relevant to Health Maintenance Insurance MEDICARE MEDICA Advance Directives For more information, please contact: [phone] * Full Code (Latest Code Status on [...] Answer Comments Full Code: Discussed Care Teams Atm Technician Relationship Specialty Start Date End Date Elsewhere, Pcp PCP - General 07/29/20
--- OUTSIDE RECORDS SUMMARY | 2024-08-23 01:43 | XMS_ITS | Encounter Summary ---
Author Organization [place] Address [address] [place] [address] Care Team Providers Care Hoister Name Role Phone Courtney Guardado MD Primary Care Provider [phone] Gavin Lombardo Primary Care Provi moses Kedar Dang MD Unavailable [phone] Rosamaria Garcia PA-C Primary Care Provider [phone] Encounter Details Date Type Department Care Team (Late st Contact Info) Description 05/24/2018 External Order Results [facility] [address] [place] [address] Outside, Provider Social History Tobacco Use Types Packs/Day Years Used Date Smoking Tobacco: Every Day Cigarettes 0.5 27 Smokeless Tobacco: Never Alcohol Use Standard Drinks/Week Comments Yes 0 (1 standard drink = 0.6 oz pur e alcohol) occ. 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
--- OUTSIDE RECORDS SUMMARY | 2024-08-23 01:44 | XMS_ITS | Clinical Summary ---
Author Organization [place] Address [address] [facility] [place] [address] Care Team Providers Care Pattern Attendant Name Role Phone Kedra Tello MD Unavailable [phone] Rosamaria Garcia PA-C Primary Care Provider [phone] Allergies Active Allergy Reactions Criticality Noted Date [...] mg by mouth every morning Active B xbnkpzm-E-qoxrb acid (NEPHROCAPS) 1 MG capsule Take 1 [...] Encounters Date Type Department Care Team Description 07/18/2024 Telephone [facility] [place] [address] [place] [phone] Albert Goel MD Referral 07/13/2024 4:14 PM CDT - 07/13/2024 9:[address] [facility] Emergency Dept [address] [place] [address] Rosamaria Reeves, Corona Pearson MD Hyperkalemia; End stage renal disease on dialysis (H); Clotted dialysis access, initial encounter; Chronic pain disorder; Continuous use of opioids Discharge Disposition: Home or Self Care 07/13/2024 1:54 PM CDT - 07/13/2024 4:05 PM CDT Hospital Encounter [facility] [address] [place] [address] Rosamaria Reeves DO ESRD (end stage renal disease) (H) Discharge Disposition: Home or Self Care 07/13/2024 Travel 06/18/2024 Telephone [facility] [address] [place] [address] Bravo Moran RN from Last 3 Months Family History [...] on file 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 Gender Identity Not on file Sexual Orientation Not on file Last Filed Vital Signs Vital Sign Reading Time Taken Comments Blood Pressure 169/85 07/13/2024 9:00 PM CDT Pulse 89 07/13/2024 9:00 PM CDT Temperature 36.5 C (97.7 F) 07/13/2024 9:00 PM CDT Respiratory Rate 18 07/13/2024 9:00 PM CDT Oxygen Saturation 100% 07/13/2024 9:00 PM CDT Inhaled Oxygen Concentration - - Weight 62.1 kg (136 lb 14.5 oz) 07/13/2024 1:37 PM CDT Height 165.1 cm (5' 5) 07/13/2024 1:37 PM CDT Body Mass Index 22.78 07/13/2024 1:37 PM CDT Plan of Treatment Health Maintenance [...] or PCV21) 06/13/2024 06/13/2019, 05/26/2018, 03/17/2011 BMP 07/13/2025 07/13/2024, 04/05/2023, 01/04/2023 COLONOSCOPY 12/15/2032 12/15/2022, 10/0 09/2016, 10/25/2016, Additional history exists COLORECTAL CANCER SCREENING [...] Name Priority Date/Time Associated Diagnosis Comments GLUCOSE BY METER Routine 07/13/2024 7:51 PM CDT IR CVC TUNNEL PLACEMENT > 5 YRS OF AGE Routine 07/13/2024 3:36 PM CDT ESRD (end stage renal disease) (H) BASIC METABOLIC PANEL STAT 07/13/2024 2:45 PM CDT GLUCOSE BY METER Routine 07/13/2024 2:44 PM CDT GLUCOSE BY METER Routine 07/13/2024 2:12 PM CDT from Last 3 Months Results * Glucose by meter (07/13/2024 7:51 PM CDT) Only the most recent of3 resultswithin the time period is included. GLUCOSE BY METER POCT 82 70 - 99 mg/dL 07/13/2024 7:58 PM CDT [facility] P[facility] Blood, Capillary BLOOD SPECIMEN / Unknown 07/13/2024 7:51 PM CDT 07/13/2024 7:58 PM CDT us Rosamaria Reeves DO LAB - BEAKER POCT Final Result [facility] P[facility] Acute Care Lab [address] Lab (1st floor, no room number) [place] [address], [facility] * IR CVC Tunnel Placement > 5 Yrs of Age (07/13/2024 3:36 PM CDT) Anatomical Region Laterality Modality Chest Radio Fluoroscop y, Radio Fluoroscopy 07/13/2024 3:36 PM CDT Impressions 07/16/2024 4:48 PM CDT IMPRESSION: Uneventful placement of a right external jugular vein 14.5 [place]dean dual lumen 23 cm tunneled palindrome catheter, as described using ultrasound and fluoroscopic guidance. This catheter is indicated to be use for hemodialysis or pheresis. PLAN: Patient's potassium of 6.4 and his hemodialysis center is only Tuesday, Tuesday and Tuesday. Patient will go to the ER and have inpatient dialysis today. Narrative 07/16/2024 4:48 PM CDT IR CVC TUNNEL PLACEMENT > 5 YRS OF AGE 307/13/2024 3:36 PM CDT CLINICAL HISTORY/INDICATION: ; Thrombosed fistula, needs dialysis access; ESRD (end stage renal disease) (H) PROCEDURES PERFORMED: 1. Ultrasound guided vascular access x 2 2. Venogram vein in the right neck. 3. Tunneled catheter placement MEDICATIONS: 1% lidocaine, Ancef 2 g IV and fentanyl IV CONTRAST: 5 mL FLUORO: 1.2 minutes IMAGES/DOSE: 47 mGy CONSENT: Following a discussion of the risks, benefits, indications and alternatives to treatment, appropriate informed consent was obtained. TIMEOUT: A timeout was performed per universal protocol policy to ensure correct patient, site, and procedure to be performed. CENTRAL LINE STATEMENT: The patient was brought to the interventional radiology suite and placed supine on the table. The patients right neck and anterior chest region were prepped and draped in a sterile fashion for tunneled line placement. The procedure was performed using maximal Sterile Barrier Technique Utilized: Cap AND mask AND sterile gown AND sterile gloves AND sterile full body drape AND hand hygiene AND skin preparation 2% chlorhexidine for cutaneous antisepsis (or acceptable alternative antiseptics). Sterile Ultrasound Technique Utilized ?Sterile gel AND sterile probe covers. PROCEDURE AND FINDINGS: This central line was performed in accordance with the central line bundle with the exception of vein selection. Following a discussion of the risks, benefits, indications and alternatives to treatment, appropriate informed consent was obtained. The patient was brought to the interventional radiology suite and placed supine on the table. The patients right neck and anterior chest region were prepped and draped in a sterile fashion for tunneled line placement. A timeout was performed per universal protocol policy to ensure correct patient, site, and procedure to be performed. Ultrasound was utilized to evaluate the veins of the right neck and a permanent record of the image was obtained which demonstrates the vein near the internal carotid artery which may be a collateral versus internal jugular vein, which was patent. Under direct ultrasound guidance, 1% Lidocaine was infiltrated and access was gained easily into the low lateral aspect of thevein in the right vein utilizing micropuncture technique. Multiple attempts were made to advance the wire without success. Venogram was performed, images show collateral vessel going midline. There is delayed filling of the superior vena cava. Ultrasound was again used to evaluate the veins of the right neck. The right external jugular vein is patent. An image was archived. Under direct ultrasound guidance one percent lidocaine was infiltrated and access was gained easily into the low lateral aspect of the right external jugular vein using micropuncture technique. The wire was advanced easily under fluoroscopic guidance and the tract was serially dilated and a peel away sheath placed. A subcutaneous tunnel was then created over the anterior/superior chest wall using local anesthesia and blunt dissection. Under fluoroscopic guidance, a 14.5 [place] dual lumen 23 cm cuffed catheter was then pulled through the tunnel and was advanced through the peel away sheath. A final placement film demonstrates the catheter tip at the cavoatrial junction with the patient supine. All of the ports flush and aspirate without difficulty following placement. The catheter was secured in position. The small incision at the base of the neck was closed uneventfully. A sterile dressing was applied. Throughout the procedure, the patient was monitored by a radiology nurse for cardiac rhythm which remained stable. The patient tolerated the procedure well and left the interventional radiology suite in stable condition. Procedure Note Rosamaria Reeves, - 07/16/2024 IR CVC TUNNEL PLACEMENT > 5 YRS OF AGE 307/13/2024 3:36 PM CDT CLINICAL HISTORY/INDICATION: ; Thrombosed fistula, needs dialysis access;ESRD (end stage renal disease) (H) PROCEDURES PERFORMED: 1. Ultrasound guided vascular access x 2 2. Venogram vein in the right neck. 3. Tunneled catheter placement MEDICATIONS: 1% lidocaine, Ancef 2 g IV and fentanyl IV CONTRAST: 5 mL FLUORO: 1.2 minutes IMAGES/DOSE: 47 mGy CONSENT: Following a discussion of the risks, benefits, indications andalternatives to treatment, appropriate informed consent was obtained. TIMEOUT: A timeout was performed per universal protocol policy to ensurecorrect patient, site, and procedure to be performed. CENTRAL LINE STATEMENT: The patient was brought to the interventionalradiology suite and placed supine on the table. The patients right neckand anterior chest region were prepped and draped in a sterile fashion fortunneled line placement. The procedure was performed using maximal Sterile Barrier Technique Utilized:Cap AND mask AND sterile gown AND sterile gloves AND sterile full bodydrape AND hand hygiene AND skin preparation 2% chlorhexidine for cutaneousantisepsis (or acceptable alternative antiseptics). Sterile Ultrasound Technique Utilized ?Sterilegel AND sterile probe covers. PROCEDURE AND FINDINGS: This central line was performed in accordance with the central line bundlewith the exception of vein selection. Following a discussion of the risks,benefits, indications and alternatives to treatment, appropriate informedconsent was obtained. The patient was brought to the interventional radiology suite and placedsupine on the table. The patients right neck and anterior chest regionwere prepped and draped in a sterile fashion for tunneled line placement.A timeout was performed per universal protocol policy to ensure correct patient, site, and procedure to beperformed. Ultrasound was utilized to evaluate the veins of the right neck and apermanent record of the image was obtained which demonstrates the veinnear the internal carotid artery which may be a collateral versus internaljugular vein, which was patent. Under direct ultrasound guidance, 1% Lidocaine was infiltrated and access wasgained easily into the low lateral aspect of thevein in the right veinutilizing micropuncture technique. Multiple attempts were made to advancethe wire without success. Venogram was performed, images show collateral vessel going midline. There isdelayed filling of the superior vena cava. Ultrasound was again used to evaluate the veins of the right neck. Theright external jugular vein is patent. An image was archived. Under directultrasound guidance one percent lidocaine was infiltrated and access wasgained easily into the low lateral aspect of the right external jugular vein using micropuncture technique.The wire was advanced easily under fluoroscopic guidance and the tract wasserially dilated and a peel away sheath placed. A subcutaneous tunnel wasthen created over the anterior/superior chest wall using local anesthesia and blunt dissection.Under fluoroscopic guidance, a 14.5 [place] Verdean dual lumen 23 cm cuffedcatheter was then pulled through the tunnel and was advanced through thepeel away sheath. A final placement film demonstrates the catheter tip at the cavoatrial junction with the patientsupine. All of the ports flush and aspirate without difficulty followingplacement. The catheter was secured in position. The small incision atthe base of the neck was closed uneventfully. A sterile dressing was applied. Throughout the procedure, the patient was monitored by a radiology nursefor cardiac rhythm which remained stable. The patient tolerated theprocedure well and left the interventional radiology suite in stablecondition. IMPRESSION: Uneventful placement of a right external jugular vein 14.5 [place] Verdean duallumen 23 cm tunneled palindrome catheter, as described using ultrasoundand fluoroscopic guidance. This catheter is indicated to be use forhemodialysis or pheresis. PLAN: Patient's potassium of 6.4 and his hemodialysis center is onlyTuesday, Tuesday and Tuesday. Patient will go to the ER and have inpatientdialysis today. us Thierry Vital MD [facility] IR ORDERABLES Final Resul t * (ABNORMAL) Basic metabolic panel (07/13/2024 2:45 PM CDT) Sodium 136 135 - 145 mmol/L 07/13/2024 3:29 PM CDT [facility] Potassium 6.4(HH) 3.4 - 5.3 mmol/L 07/13/2024 3:29 PM CDT [facility] Chloride 102 98 - 107 mmol/L 07/13/2024 3:29 PM CDT [facility] Carbon Dioxide (CO2) 22 22 - 29 mmol/L 07/13/2024 3:29 PM CDT [facility] Anion Gap 12 7 - 15 mmol/L 07/13/2024 3:29 PM CDT [facility] Urea Nitrogen 53.0(H) 6.0 - 20.0 mg/dL 07/13/2024 3:29 PM CDT [facility] Creatinine 11.76(H) 0.67 - 1.17 mg/dL 07/13/2024 3:29 PM CDT [facility] GFR Estimate 5(L) >60 mL/min/1.7 3m2 07/13/2024 3:29 PM CDT [facility] Comment:eGFR calculated usin 2020 CKD-EPI equation. Calcium 10.0 8.8 - 10.4 mg/dL 07/13/2024 3:29 PM CDT [facility] Glucose 79 70 - 99 mg/dL 07/13/2024 3:29 PM CDT [facility] Blood BLOOD SPECIMEN / Unknown Vascular Access Assisted / Unknown 07/13/2024 2:45 PM CDT 07/13/2024 2:45 PM CDT Dax Lorenz PA-C LAB - BLOOD ORDERAB LES Final Result [facility] Care Lab [address] [facility] Lab (1st floor, no room number) [place] [address], [facility] from Last 3 Months Insurance MEDICA [employer] [place]ILITY [place] [employer] MEDICARE ADVANTAGE MED[employer]ILITY [place] [employer] MEDICARE ADVANTAGE Care Teams Pattern Attendant Relationship Specialty Start Date End Date Rosamaria Garcia PA-C [address] [place] [address] PCP - General 12/15/23 [place] [address] [address], [place] [address] Assigned Gastroenterology Provider 01/29/23
--- OUTSIDE RECORDS SUMMARY | 2024-08-23 01:44 | XMS_ITS | Data Portability ---
Author Organization [place] - [facility], [facility] Address [address] [place] [address] Care Team Providers Care Senior Accounting Clerk Name Role Phone BRITTA RAMOS Primary Care Provider Assessment No assessment recorded. Plan of Treatment Reminders Order Date Submit Date Provider Last Modified By Organization Details Last Modified Time Details Appointments None recorded. Lab urinalysis , dipstick 2023 024 [id number] 9 [facility], [address] [facility] [facility] [address], [address], [place], [address], 11:43:13 Referral None recorded. Procedures None recorded. Surgeries None recorded. Imaging None recorded. Medication Orders None recorded. Patient TargetsNo targets recorded. Patient Instructions Encounter Date Encounter Id Patient Instructions Last Modified By Organization Details Last Modified Time 09/29/2023 [id number] will set up for cysto possible bladder biopsy/fulguratio n. [email or web address] Not available 09/29/2023 11:42:13 Reason for Referral None Reported. Results Created Date Observation Date Name Description Value Unit Range Abnormal Flag Note LastModifiedBy Organization Detail LastModifiedTime 09/29/19 24 09/29/2023 urina lysis , dipst ick pH-Status 8.5 Not Available [facility] [address] [facility], [place], [address], 09/28/2023 18:15:50 09/29/19 24 09/29/2023 urina lysis , dipst ick Blood-Status Small Not Available [facility] [address] [facility] [address], [place], [address], 09/28/2023 18:15:50 Result Notes None recorded. Procedures Surgical History Date Name Laterality Status Provider Name and Address Organization Details Recorded Time Eye surgery follow-up add-on completed Juan Francisco Don MD [address] [facility],[address], [place], [address], [facility] 09/29/2023 11:31:24 Imaging Results None recorded. Procedure Notes None recorded. Medical Equipment None Reported. Allergies Allergen ID Allergen Name Allergen Category Reaction Reaction Severity Criticality Documentation Date Start Date Code Code System Note Provider Name and Address Organization Details Recorded Time 173350 Product containin g penicilli n (product) medicatio n Not available Not available Not available 09/29/2023 76577 8001 SNOMED Not Available Not Available Not Available 670708 lisinopri l medicatio n Not available Not available Not available 09/29/2023 71324 RxNorm Not Available Not Available Not Available 555575 Dilaudid medicatio n Not available Not available Not available 09/29/2023 44565 3 RxNorm Not Available Not Available Not [...] Updated DateTime 09/29/2023 165.1 cm 23.8 kg/m2 22738.71 g Juan Francisco Don MD [address] [place] [address],[address], [phone] [place] [address] Urology 09/29/2023 11:26:30 Social History Question Answer Notes LastModified by Organizat ion Details LastModified Time Tobacco Smoking Status Former Smoker Juan Francisco Don MD [address] [place] [address],[address], [phone] [place] [address] Urology 09/29/2023 11:30:13 What Is Your Level Of Alcohol Consumption? None Information not available 09/29/2023 What Is Your Level Of Caffeine Consumption? Occasional [email or web address] Information not available 09/29/2023 When Did You Quit Smoking? 1-5yearssinjuve moreno [email or web address] Information not available 09/29/2023 What Was The Date Of Your Most Recent Tobacco Screening? 09/29/2023 Information not available 09/29/2023 Sex: Unknown Functional Status None recorded. Mental Status None recorded. Family History Relationship Description Onset Age of this Age Resolved Age Notes LastModified by Organization Details LastModified Time Mother Family history of malignant neoplasm Not available 09/28 11:29:42 Mother Family history of diabetes mellitus [email or web address] Not available 09/28 11:29:52 Sister Family history of malignant neoplasm [email or web address] Not available 09/28 11:29:42 Sister Family history of diabetes mellitus [email or web address] Not available 09/28 11:29:52 Medical History Condition Response Diabetes N Sexually Transmitted Infection N Other N Bleeding Disorder N High Blood Pressure N Kidney Stones N Cancer Y Depression N Lung Disease N High Cholesterol N GERD/Acid Reflux N Heart Disease N Past Encounters Encounter ID Performer Location Encounter Start Date Encounter Closed Date Diagnosis/Indication Diagnosis SNOMED-CT Code Diagnosis ICD10 Code Diagnosis Note [id number] Juan Francisco Don MD [facility] [address] [facility] [place] [address] 09/29/2023 11:15:44 10/06/2023 14:11:40 Microscopic hematuria 959085660 R31.29 bladder wall thickening . Health Concerns Section Related Observation LastModified by Organization Detai ls LastModified Time None Recorded Concern Status LastModified by Organization Details LastModified Time None Recorded Advance Directives Directive None Recorded Payers Encounter Date Sequence Insurance Name Policy Number Policy [place] Covered Member ID Bur[place]on Member ID Guarantor Name 09/29/2023 1 MEDICARE B-CO: [employer] [facility] Vik Thakkar [id number] Vik Thakkar 09/29/2023 2 [place] Vik Thakkar [id number] Vik Thakkar Notes Date Note Type Note [...] from DM Juan Francisco Don MD [address] [facility],[address], [place], [address], [facility] 09/29/2023 11:43:29
--- OUTSIDE RECORDS SUMMARY | 2024-08-23 01:44 | XMS_ITS | Encounter Summary ---
Author Organization [place] Address [address] [place] [address] Care Team Providers Care Information Technology Teacher Name Role Phone Kedar Tello MD Unavailable [phone] Rosamaria Garcia PA-C Primary Care Provider [phone] Reason for Referral * Diagnostic Imaging Ultrasound (Routine) - Pending Review Specialty Diagnoses / Procedures Referred By Alexis t Referred To Contact Radiology. Diagnoses Preop testing ESRD (end stage renal disease) on dialysis (H) Procedures US Upper Extremity Venous Mapping Bilateral Albert Goel MD [address] [place] [address] Phone: tel: fax: Referral ID Status Reason Start Date Expiration Date V isits Requested Visits Authorized [id number] Pending Review 07/18/2024 07/18/2025 1 1 Reason for Visit * Reason Onset Date Comments Referral 07/18/2024 Encounter Details Date Type Department Care Team (Late st Contact Info) Description 07/18/2024 Telephone [facility] [place] 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 Appt scheduled for patient by Cristobal CASTELLANOS at [facility]. * Telephone Encounter - Rubina Lui RN - 07/18/2024 10:53 AM CDT Referred by Dr. Rosamaria Reeves for fistula creation. Previous imaging completed (pertinent to referral): N/A Routing to scheduling to coordinate the following: Bilateral upper extremity vein mapping NEW VASCULAR PATIENT consult with Dr. Goel Please schedule this at next available Appt note: Ref by Dr. Rosamaria Reeves for fistula creation; BUE vein mapping needed prior. BERTRAM Barton, RN, CV-, [facility] * Telephone Encounter - Rubina Lui RN - 07/18/2024 10:46 AM CDT ----- Message from Albert Goel sent at 07/13/2024 3:58 PM CDT ----- Regarding: Referral Referral by Dr. Reeves for creation of AV fistula. Can I please see him in the [facility] clinic withbilateral upper extremity vein mapping. Thank you, KMK documented in this encounter Plan of Treatment Scheduled Orders Name Type Priority Associated Diagnoses Orde r Schedule US Upper Extremity Venous Mapping Bilateral Imaging Routine Preop testing ESRD (end stage renal disease) on dialysis (H) Expected: 07/18/2024 (Approximate), Expires: 07/18/2025 documented as of this encounter Visit Diagnoses Diagnosis Preop testing- Primary Preoperative examination, unspecified ESRD (end stage renal disease) on dialysis (H) End stage renal disease documented in this encounter Care Teams Information Technology Teacher Relationship Specialty Start Date End Date Rosamaria Garcia PA-C [address] [place] [address] PCP - General 12/15/23 [place] [address] [place] [address] Assigned Gastroenterology Provider 01/29/23 documented as of this encounter
--- OUTSIDE RECORDS SUMMARY | 2024-08-23 01:44 | XMS_ITS | Encounter Summary ---
Author Organization [place] Address [address] [facility] [place] [address] Care Team Providers Care Body Man Name Role Phone Kedar Tello MD Unavailable [phone] Rosamaria Garcia PA-C Primary Care Provider [phone] Reason for Referral * Therapeutic Imaging/IR (Routine) - Closed Specialty Diagnoses / Procedures Referred By Contac t Referred To Contact Radiology. Diagnoses ESRD (end stage renal disease) (H) Procedures IR CVC Tunnel Placement > 5 Yrs of Age Thierry Vital MD [address] [place] [address] Phone: tel: fax: [facility] [address] [place] [address] Phone: tel: fax: Referral ID Status Reason Start Date Expiration Date Visits Re quested Visits Authorized [id number] Closed 07/13/2024 07/13/2025 1 1 Encounter Details Date Type Department Care Team (Latest Contact Info) Description 07/13/2024 1:54 PM CDT - 07/13/2024 4:05 PM CDT Hospital Encounter [facility] [address] [place] [address] Rosamaria Reeves, [facility] [address] [address] ESRD (end stage renal disease) (H) Discharge Disposition: Home or Self Care Social History Tobacco Use Types Packs/Day Years [...] on file Legal Sex Male 5:19 AM [employer] Gender Identity Not on file Sexual Orientation Not on file documented as of this encounter Last Filed Vital Signs Vital Sign Reading Time Taken Comments Blood Pressure 193/91 07/13/2024 3:51 PM CDT Pulse 84 07/13/2024 3:51 PM CDT Temperature 36.4 C (97.6 F) 07/13/2024 2:04 PM CDT Respiratory Rate 18 07/13/2024 3:51 PM CDT Oxygen Saturation 100% 07/13/2024 3:51 PM CDT Inhaled Oxygen Concentration - - Weight - - Height - - Body Mass Index - - documented in this encounter Discharge Instructions * Discharge Instructions* Snehal Alvarez RN - 07/13/2024 2:25 PM CDT Images from the original note were not included. Caring for Your Tunneled Dialysis Catheter Patient Name: Vik Thakkar Today's Date: July 13, 2024 The radiologist who performed your procedure was: Dr. Reeves When you get home: No driving or drinking alcohol until tomorrow. You may still have side effects from the medicine you received today. (You may feel drowsy, unsteady or forgetful.) You should have an adult with you for your first six hours at home. You may go back to your regular diet today. If you take aspirin or Plavix, you may begin taking it again tomorrow. You may restart all other medicines today. Use pain medicine as directed. Avoid heavy lifting or the excess use of your shoulder for three days. Keep the neck bandage clean and dry for three days. Do not shower unless it is covered with plastic. After three days you may use a Band-Aid on your neck. Keep using Band-Aids until the wound has healed. What is a tunneled dialysis catheter? This is a special tube (catheter) that is threaded (tunneled) under your skin and then placed in a vein near your collarbone. Some people have it for a short time, others have it for their entire lives. We will use this tube to access your bloodstream for dialysis. After each treatment, your dialysis team will flush the tube with a drug called heparin. This will keep the tube from clotting. They will then change your bandage. What does it look like? The catheter is a Y-shaped tube. The two ends, called ports, are each covered with a cap. A clamp near each port helps prevent infection, bleeding and air in the vein. The exit site (where the tube comes out of your skin) stays covered with a clear bandage. The entrance site, or tunneling site, is higher up on the neck. It is covered with small pieces of tape called Steri-Strips. How should I care for the catheter? Prevent injury and infection: Infection may occur if germs enter your bloodstream around the exit or entrance sites. To prevent an infection: Do not swim while you have the catheter. You may shower if you first cover the bandage with plastic. You may take a bath if the water stays below your waist. (Sponge bathe your upper body to keep the bandage from getting wet.) Take your temperature by mouth daily. If you have a fever over 100??F (37.8??C), call your doctor. Check the skin around the tube each day for redness, swelling, drainage or tenderness. These are all signs of infection. You will need to avoid heavy activity. Avoid contact sports. If you have oozing or bleeding from the catheter site Put direct pressure on the wound for 5 to 10 minutes with a gauze pad. If you still have bleeding after 10 minutes, call your doctor. If you are bleeding a lot and can't control it with direct pressure, call 911. Check your catheter each day Make sure the clamps are closed over both ends of the tubing. Check that the caps are tight. If a cap is loose or comes off, you may have bleeding from the tube, or air could get into the bloodstream. To prevent this, make sure the clamp on the catheter is closed. Wrap the end of the tube davida clean gauze and call your doctor or dialysis unit at once. Your catheter is not likely to fall out. It is sewn into your skin with stitches. (Stitches are removed or will fall out in a couple weeks.) Also, a small cuff under the skin helps to hold the catheter in place. If the catheter does fall out, put firm pressure on the exit site with a clean gauze. Then, call your doctor or dialysis unit at once. EMERGENCY CLAMP: apply to the tube if it gets cut and the clamp on the tube becomes disconnected and then call your doctor or dialysis unit immediately or proceed to the emergency room. When should I call my doctor or dialysis unit? Call right away if: Your temperature under the tongue is over 100??F (37.8??C). The skin around the tube feels tender or you see drainage. You have trouble breathing. You have unusual chest or shoulder pain. A cap comes off. The catheter falls out. [facility] Radiology Department: [facility] at [phone] If you are deaf or hard of hearing, please let us know. We provide many free services including sign language interpreters, oral interpreters, TTYs, telephone amplifiers, note takers and written materials documented in this encounter Medications at Time of Discharge amLODIPine (NORVASC) 10 MG tabletIndications: ESRD (end stage renal disease) on dialysis (H),Hyperphosphate sharita,Essential hypertension Take 1 tablet (10 mg) by mouth daily 90 tablet 3 05/27/2017 AMLODIPINE BESYLATE PO Take 10 mg by mouth daily. B Complex Vitamins (VITAMIN B COMPLEX) tablet Take 1 tablet by mouth daily B cybegeb-N-gyjkq acid (NEPHROCAPS) 1 MG capsule Take 1 capsule by mouth daily calcium acetate (PHOSLO) 667 MG CAPS Take 667 mg by mouth 3 times daily (with meals) GABAPENTIN PO Take 100 mg by mouth daily LORazepam (ATIVAN) 0.5 MG tablet Take 0.5 mg by mouth 2 times daily as needed for anxiety METOPROLOL TARTRATE POIndications:Hype rtension Take 50 mg by mouth daily Taken on non dialysis days Omeprazole (PRILOSEC PO) Take 20 mg by mouth every morning oxyCODONE (ROXICODONE) 5 MG tablet Take 5 mg by mouth 2 times daily as needed for severe pain PARICALCITOL PO Take 2 mcg by mouth three times a week sevelamer (RENVELA) 800 MG tabletIndications: ESRD (end stage renal disease) on dialysis (H),Hyperphosphate sharita,Essential hypertension Take 3 tablets (2,400 mg) by mouth 3 times daily (with meals) 540 tablet 3 05/27/2017 documented as of this encounter Progress Notes * Parish Banks MD - 07/13/2024 3:40 PM CDT Pt c ESKD who dialyses at [facility] under the care of Dr. Vital ([facility]). It is a MWF unit and he is unable to dialyse at his home unit so will go to the ER today since his K is 6.4. 1. ESKD c severe hyperkalemia. Pt's arm access isn't working well so he had a TDC placed today by IR. A. Pt will have to go to the ER to be checked in. B. From ER, he can be sent to the dialysis unit where we will run him. C. After dialysis, he will go back to the ER and can be dc'd home. Case d/w Dr. Reeves (IR) and JASMIN Celis (dialysis). * Dione Archer - 07/13/2024 3:11 PM CDT Procedure CVC Tunnel Placement Fentanyl 100 mcg Contrast 5 ml Omnipaque 240 Other meds Ancef 2 Gm 1% Lidocaine 20 ml Fluoro time 1.2 min AK 47 mGy * Snehal Alvarez RN - 07/13/2024 3:03 PM CDT Upon arrival to cath/IR holding room pt. Stated he felt his blood sugar was getting low. Glucose 61, pt. Received 4 oz. Of apple juice. On recheck 15 minutes later, glucose rechecked and was 76. Pt. Denied symptoms but requested more apple juice. Pt. Drank 4 more ounces of apple juice and reports feeling well now. Proceeding with dialysis tunneled catheter placement. Dr. Reeves aware. documented in this encounter Miscellaneous Notes * Sedation Documentation - Snehal Alvarez RN - 07/13/2024 4:05 PM CDT Patient ate 1/2 turkey sandwich and had about 4 oz. Of coffee. Tolerated well. Rt. Tunneled catheter site clean, dry and intact with transparent dressing. Pt. Tranported to ED 1 via cart accompanied by RN. Plan is to do dialysis at the hospital this evening. Report provided to JASMIN Padilla. Pt. Deniesany questions or concerns at this time. All belongings including cell phone and wallet are at patient bedside. Pt. Placed emergency clamps in his bag. Rt. Forearm IV left in place. * Sedation Documentation - Snehal Alvarez RN - 07/13/2024 3:29 PM CDT Lab results: Potassium 6.4. Dr. Reeves notified. Attempting to contact his dialysis center to seeif he can be set up for dialysis tomorrow (Tuesday). Post Procedure Summary: Prior to the start of the procedure and with procedural staff participation, I verbally confirmed the patient???s identity using two indicators, relevant allergies, that the procedure was appropriateand matched the consent or emergent situation, and that the correct equipment/implants were available. Immediately prior to starting the procedure I conducted the Time Out with the procedural staff and re-confirmed the patient???s name, procedure, and site/side. (The Joint Commission universal protocol was followed.) Yes Sedatives: Fentanyl Vital signs, airway and pulse oximetry were monitored and remained stable throughout the procedure and sedation was maintained until the procedure was complete. The patient was monitored by staff until sedation discharge criteria were met. Patient tolerance: Patient tolerated the procedure well with no immediate complications. Patient denies pain, nausea and shortness of breath. Transferred to cath/IR via cart accompanied byRN. documented in this encounter Plan of Treatment [...] BY METER Routine 07/13/2024 2:12 PM CDT documented in this encounter Results * Glucose by meter (07/13/2024 7:51 PM CDT) GLUCOSE BY METER POCT 82 70 - 99 mg/dL 07/13/2024 7:58 PM CDT [facility] POC Blood, Capillary BLOOD SPECIMEN / Unknown 07/13/2024 7:51 PM CDT 07/13/2024 7:58 PM CDT us Rosamaria Reeves DO LAB - BEAKER POCT Final Result LABORATORY [facility] [address] Lab (1st floor, no room number) [place] [address], [facility] * IR CVC Tunnel Placement > 5 Yrs of Age (07/13/2024 3:36 PM CDT) Anatomical Region Laterality Modality Chest Radio Fluoroscop y, Radio Fluoroscopy 07/13/2024 3:36 PM CDT Impressions 07/16/2024 4:48 PM CDT IMPRESSION: Uneventful placement of a right external jugular vein 14.5 Gambian dual lumen 23 cm tunneled palindrome catheter, [...] blunt dissection. Under fluoroscopic guidance, a 14.5 Gambian dual lumen 23 cm cuffed catheter was [...] in stable condition. Procedure Note Rosamaria Reeves, DO - 07/16/2024 IR CVC TUNNEL PLACEMENT > [...] and blunt dissection.Under fluoroscopic guidance, a 14.5 Gambian dual lumen 23 cm cuffedcatheter was then [...] of a right external jugular vein 14.5 Gambian duallumen 23 cm tunneled palindrome catheter, as described using ultrasoundand fluoroscopic guidance. This catheter is indicated to be use forhemodialysis or pheresis. PLAN: Patient's potassium of 6.4 and his hemodialysis center is onlyTuesday, Tuesday and Tuesday. Patient will go to the ER and have inpatientdialysis today. us Thierry Vital MD [facility] IR ORDERABLES Final Resul t * (ABNORMAL) Basic metabolic panel (07/13/2024 2:45 PM CDT) Sodium 136 135 - 145 mmol/L 07/13/2024 3:29 PM CDT [facility] Potassium 6.4(HH) 3.4 - 5.3 mmol/L 07/13/2024 3:29 PM CDT LABORATORY Chloride 102 98 - 107 mmol/L 07/13/2024 3:29 PM CDT [facility] Carbon Dioxide (CO2) 22 22 - 29 mmol/L 07/13/2024 3:29 PM CDT LABORATORY Anion Gap 12 7 - 15 [...] - 10.4 mg/dL 07/13/2024 3:29 PM CDT LABORATORY Glucose 79 70 - 99 mg/dL 07/13/2024 3:29 PM CDT LABORATORY Blood BLOOD SPECIMEN / Unknown Vascular Access Assisted / Unknown 07/13/2024 2:45 PM CDT 07/13/2024 2:45 PM CDT us Dax Lorenz PA-C LAB - BLOOD ORDERAB LES Final Result LABORATORY [facility] [address] Lab (1st floor, no room number) [place] [id number] [place] [address] * Glucose by meter (07/13/2024 2:44 PM CDT) [facility] GLUCOSE BY METER POCT 76 70 - 99 mg/dL 07/13/2024 2:51 PM CDT LABORATORY POC Blood, venous BLOOD SPECIMEN / Unknown 07/13/2024 2:44 PM CDT 07/13/2024 2:51 PM CDT us Rosamaria Reeves DO LAB - BEAKER POCT Final Result LABORATORY POC [facility] Acute [facility] Lab [address] Lab (1st floor, no room number) [place] [address], [facility] * (ABNORMAL) Glucose by meter (07/13/2024 2:12 PM CDT) GLUCOSE BY METER POCT 61(L) 70 - 99 mg/dL 07/13/2024 2:19 PM CDT [facility] POC Blood, Capillary BLOOD SPECIMEN / Unknown 07/13/2024 2:12 PM CDT 07/13/2024 2:19 PM CDT us Rosamaria Reeves DO LAB - BEAKER POCT Final Result [facility]AT[facility] POC [facility] Acute [facility] Lab [address] [facility] Lab (1st floor, no room number) [place] [address], [facility] documented in this encounter Visit Diagnoses Diagnosis ESRD (end stage renal disease) (H) End stage renal disease documented in this encounter Administered Medications Inactive Administered Medications - up to 3 most recent administrations Medication Order MAR Action Action Date Dose Rate Site ceFAZolin (ANCEF) 2 g in dextrose 50 mL intermittent infusion Routine, 2 g, Intravenous, PRE-OP/PRE-PROCEDURE, Starting on Tue07/13/24 at 1358, For 1 dose, Give dose within 1 hour PRIOR to procedure. If patient weight is greater than or equal to 120 kg change dose to 3 g., Indications: Perioperative Pharmacoprophylaxis, IR Pre-procedureIndications:Perioperat fuentes Pharmacoprophylaxis $New Bag 07/13/2024 2:57 PM CDT 2 g fentaNYL (PF) (SUBLIMAZE) injection 25-50 mcg 25-50 mcg, Intravenous, EVERY 5 MIN PRN, severe pain, If inadequate response may repeat 25 mcg IV slowly every 5 min PRN severe pain; when verbally requested by provider., Administer over 2 Minutes, Starting on Tue07/13/24 at 1358, Doses can be exceeded under direct oversight of patient by physician., IR Intra-procedure $Given 07/13/2024 3:21 PM CDT 50 mcg $Given 07/13/2024 3:07 PM CDT 50 mcg flumazenil (ROMAZICON) injection 0.2 mg 0.2 mg, Intravenous, EVERY 1 MIN PRN, benzodiazepine reversal, If inadequate response after 45 seconds, may repeat 0.2 mg IV every 1 minute PRN oversedation., Administer over 1 Minutes, Starting on Tue07/13/24 at 1358, Give over 15 seconds. Maximum total dose of 1 mg. Continue monitoring until discharge criteria met for a minimum of 2 hours. Use with caution in patients on benzodiazepine therapy., IR Intra-procedure heparin Lock (1000 units/mL High concentration) 1,000-5,000 Units 1,000-5,000 Units (1-5 mL), Intracatheter, ONCE, On Tue07/13/24 at 1430, For 1 dose, CVC tunnel cath. $Given by Other 07/13/2024 3:23 PM CDT 4,000 Units iohexol (OMNIPAQUE) 240 mg/mL solution 50 mL 50 mL, Other, ONCE, On Tue07/13/24 at 1530, For 1 dose $Given by Other 07/13/2024 3:28 PM CDT 5 mLs lidocaine 1 % 1-30 mL 1-30 mL, Intradermal, ONCE PRN, local anesthetic. When verbally ordered by prescriber during the procedure., Starting on Tue07/13/24 at 1358, For 1 dose, Dose to be divided into smaller volumes appropriate for the procedure. Provider to administer intradermally., IR Intra-procedure $Given by Other 07/13/2024 3:24 PM CDT 20 mLs midazolam (VERSED) injection 0.5-2 mg 0.5-2 mg, Intravenous, Administer over 1 Minutes, EVERY 4 MIN PRN, sedation, If inadequate response may repeat 0.5 mg IV slowly every 4 minutes PRN sedation until desired response; when verbally requested by provider., Starting on Tue07/13/24 at 1358, Doses can be exceeded under direct oversight of patient by physician. This drug may cause significant respiratory depression. Monitor respiratory status and vital signs carefully for 1 hour after each dose., IR Intra-procedure naloxone (NARCAN) injection 0.2 mg 0.2 mg, Intravenous, EVERY 2 MIN PRN, opioid reversal, Starting on Tue07/13/24 at 1358, Administer intravenous route when available and notify provider when administered. For unintended sedation or respiratory depression if all of the below criteria are met: ~ respiratory rate LESS than or EQUAL to 8. ~SaO2 less than 92% and or/end-tidal CO2 is greater than 50. ~ the patient is receiving an opioid, has unintended sedations assessed as RASS (-3), and is currently not on mechanical ventilation. RASS scale moderate (-3) is movement or eye opening to voice but no eye contact. Patient Monitoring Once the patient has demonstrated a response to the naloxone, continue to monitor respiratory rate, depth, oxygen saturation and end-tidal CO2 (if available) every 15 minutes x 2, then every 30 minutes x 2, then every 1 hour x 1 after each naloxone dose. Consider transfer to ICU if patient respiratory parameters have not improved after 4 naloxone doses., IR Intra-procedure naloxone (NARCAN) injection 0.2 mg 0.2 mg, Intramuscular, EVERY 2 MIN PRN, opioid reversal, Starting on Tue07/13/24 at 1358, Administer intramuscular if an intravenous route is not available and notify provider when administered. For unintended sedation or respiratory depression if all of the below criteria are met: ~ respiratory rate LESS than or EQUAL to 8. ~SaO2 less than 92% and or/end-tidal CO2 is greater than 50. ~ the patient is receiving an opioid, has unintended sedations assessed as RASS (-3), and is currently not on mechanical ventilation. RASS scale moderate (-3) is movement or eye opening to voice but no eye contact. Patient Monitoring Once the patient has demonstrated a response to the naloxone, continue to monitor respiratory rate, depth, oxygen saturation and end-tidal CO2 (if available) every 15 minutes x 2, then every 30 minutes x 2, then every 1 hour x 1 after each naloxone dose. Consider transfer to ICU if patient respiratory parameters have not improved after 4 naloxone doses., IR Intra-procedure naloxone (NARCAN) injection 0.4 mg 0.4 mg, Intravenous, EVERY 2 MIN PRN, opioid reversal, Starting on Tue07/13/24 at 1358, Administer intravenous route when available and notify provider when administered. For unintended sedation or respiratory depression if all of the below criteria are met: ~ respiratory rate LESS than or EQUAL to 8. ~ SaO2 less than 92% and or/end-tidal CO2 is greater than 50. ~ the patient is receiving an opioid, has unintended sedation assessed as RASS (-4) or (-5) and patient is currently not on mechanical ventilation. RASS scale (-4) is deep sedation with no response to voice but movement or eye opening to physical stimulation. RASS scale (-5) is unarousable. Patient Monitoring Once the patient has demonstrated a response to the naloxone, continue to monitor respiratory rate, depth, oxygen saturation and end-tidal CO2 (if available) every 15 minutes x 2, then every 30 minutes x 2, then every 1 hour x 1 after each naloxone dose. Consider transfer to ICU if patient respiratory parameters have not improved after 4 naloxone doses., IR Intra-procedure naloxone (NARCAN) injection 0.4 mg 0.4 mg, Intramuscular, EVERY 2 MIN PRN, opioid reversal, Starting on Tue07/13/24 at 1358, Administer intramuscular if an intravenous route is not available and notify provider when administered. For unintended sedation or respiratory depression if all of the below criteria are met: ~ respiratory rate LESS than or EQUAL to 8. ~ SaO2 less than 92% and or/end-tidal CO2 is greater than 50. ~ the patient is receiving an opioid, has unintended sedation assessed as RASS (-4) or (-5) and patient is currently not on mechanical ventilation. RASS scale (-4) is deep sedation with no response to voice but movement or eye opening to physical stimulation. RASS scale (-5) is unarousable. Patient Monitoring Once the patient has demonstrated a response to the naloxone, continue to monitor respiratory rate, depth, oxygen saturation and end-tidal CO2 (if available) every 15 minutes x 2, then every 30 minutes x 2, then every 1 hour x 1 after each naloxone dose. Consider transfer to ICU if patient respiratory parameters have not improved after 4 naloxone doses., IR Intra-procedure sodium chloride 0.9 % bag TABLE SOLN 1 Bag, TABLE SOLN, CONTINUOUS PRN, other, Catheter prep table solution use as directed by provider., Starting on Tue07/13/24 at 1358, Maximum total dose 5000 mL Nurse will document number of bags used at the end of the procedure. NOT A PRESSURE BAG, IR Intra-procedure documented in this encounter Active and Recently Administered Medications Times are shown in CDT. Scheduled Medication Order 07/11/2024 07/12/2024 07/13/2024 0.9% Sodium Chloride for DIALYSIS Catheter LOCK - BLUE lumen 10 mL, Intracatheter, DURING DIALYSIS/CRRT (FROM STOCK), Starting on Tue07/13/24 at 1644, For 1 dose, To BLUE lumen for dialysis catheter lock, Dialysis 0.9% Sodium Chloride for DIALYSIS Catheter LOCK - RED lumen 10 mL, Intracatheter, DURING DIALYSIS/CRRT (FROM STOCK), Starting on Tue07/13/24 at 1644, For 1 dose, To RED lumen for dialysis catheter lock, Dialysis ceFAZolin (ANCEF) 2 g in dextrose 50 mL intermittent infusion (COMPLETED) Routine, 2 g, Intravenous, PRE-OP/PRE-PROCEDURE, Starting on Tue07/13/24 at 1358, For 1 dose, Give dose within 1 hour PRIOR to procedure. If patient weight is greater than or equal to 120 kg change dose to 3 g., Indications: Perioperative Pharmacoprophylaxis, IR Pre-procedure 1457 ($New Bag - Pro vider: Snehal Alvarez, RN - Comment: Rt forearm IV) heparin Lock (1000 units/mL High concentration) 1,000-5,000 Units (COMPLETED) 1,000-5,000 Units (1-5 mL), Intracatheter, ONCE, On Tue07/13/24 at 1430, For 1 dose, CVC tunnel cath. 1523 ($Given by Ot r - Provider: Snehal Alvarez RN - Comment: Given by Dr. Reeves to Tunnelled dialysis catheter, 2000 units brown port, 2000 units blue port.) iohexol (OMNIPAQUE) 240 mg/mL solution 50 mL (COMPLETED) 50 mL, Other, ONCE, On Tue07/13/24 at 1530, For 1 dose 1528 ($Given by Ot r - Provider: Dione Archer - Comment: Amanda Reeves) No heparin via hemodialysis machine ONCE, 1 dose, On Tue07/13/24 at 1700, Normal saline flushes may be used to maintain patency of circuit., Dialysis 1700 (Canceled Entry - Provider: Orders Generic Provider - Comment: Automatically canceled at discontinue of medication order) sodium chloride (PF) 0.9% PF flush 9 mL 9 mL, Intracatheter, DURING DIALYSIS/CRRT (FROM STOCK), Starting on Tue07/13/24 at 1644, For 1 dose, After accessing catheter, PRN catheter DWELL To RED lumen for dialysis catheter care., Dialysis sodium chloride (PF) 0.9% PF flush 9 mL 9 mL, Intracatheter, DURING DIALYSIS/CRRT (FROM STOCK), Starting on Tue07/13/24 at 1644, For 1 dose, After accessing catheter, PRN catheter DWELL. To BLUE lumen for dialysis catheter care., Dialysis sodium chloride 0.9% BOLUS 200 mL Hemodialysis Machine, 200 mL, ONCE, On Tue07/13/24 at 1700, For 1 dose, For Dialyzer Prime. (In Dialyzer), Dialysis 1700 (Canceled Entry - Provider: Orders Generic Provider - Comment: Automatically canceled at discontinue of medication order) sodium chloride 0.9% BOLUS 250 mL Intravenous, 250 mL, ONCE IN DIALYSIS/CRRT, On Tue07/13/24 at 1700, For 1 dose, For patient prime during dialysis, Dialysis 1700 (Canceled Entry - Provider: Orders Generic Provider - Comment: Automatically canceled at discontinue of medication order) sodium chloride 0.9% BOLUS 500 mL Hemodialysis Machine, 500 mL, ONCE, On Tue07/13/24 at 1600, For 1 dose, RINSE BACK 0.9% Normal Saline to a Max of 500mL. Dialyzer rinse back rate 25% of Blood flow rate (BFR). 1600 (Canceled Entry - Provider: Orders Generic Provider - Comment: Automatically canceled at discontinue of medication order) PRN Medication Order 07/11/2024 07/12/2024 07/13/2024 albumin human 25 % injection 50 mL 50 mL, Intravenous, EVERY 1 HOUR PRN, other, see administration instructions, Starting on Tue07/13/24 at 1644, FOR Systolic Blood Pressure less than 90 mmHg or for volume replacement DURING DIALYSIS RUN, Dialysis, Reason for Use: Symptomatic hypotension during hemodialysis albumin human 5 % injection 50-250 mL 50-250 mL, Intravenous, EVERY 1 HOUR PRN, other, see administration instructions, Starting on Tue07/13/24 at 1644, FOR Systolic Blood Pressure less than 90 mmHg or for volume replacement DURING DIALYSIS RUN, Dialysis, Reason for Use: Dialysis (hemodialysis and CRRT) prime if hypotension or large extracorporeal circuit alteplase (CATHFLO ACTIVASE) injection 2 mg 2 mg, Intracatheter, EVERY 1 HOUR PRN, RED lumen for dialysis catheter care if flow is less than 250 mL/min., Starting on Tue07/13/24 at 1644, For 2 doses, Prepare alteplase in sterile water amount to equal the size of catheter lumen - using the 2 mg vial of alteplase. Administer the alteplase dose to the RED lumen based on the volume specific to the size of the dialysis catheter lumen length used on the patient. Instill and dwell for at least 30 minutes in Dialysis Catheter port for poor flow. Notify provider if flow does not improve with the instillation of the alteplase. Dissolve the contents of the 2 mg alteplase vial using 2.2 mL of Sterile Water for Injection to provide a solution containing 1 mg/mL of alteplase. Withdraw the ordered dose from vial. Use immediately (within 1 hour) after reconstitution. Discard any unused portion., Dialysis alteplase (CATHFLO ACTIVASE) injection 2 mg 2 mg, Intracatheter, EVERY 1 HOUR PRN, BLUE lumen for dialysis catheter care if flow is less than 250 mL/min., Starting on Tue07/13/24 at 1644, For 2 doses, Prepare alteplase in sterile water amount to equal the size of catheter lumen - using the 2 mg vial of alteplase. Administer the alteplase dose to the Blue lumen based on the volume specific to the size of the dialysis catheter lumen length used on the patient. Instill and dwell for at least 30 minutes in Dialysis Catheter port for poor flow. Notify provider if flow does not improve with the instillation of the alteplase. Dissolve the contents of the 2 mg alteplase vial using 2.2 mL of Sterile Water for Injection to provide a solution containing 1 mg/mL of alteplase. Withdraw the ordered dose from vial. Use immediately (within 1 hour) after reconstitution. Discard any unused portion., Dialysis fentaNYL (PF) (SUBLIMAZE) injection 25-50 mcg 25-50 mcg, Intravenous, EVERY 5 MIN PRN, severe pain, If inadequate response may repeat 25 mcg IV slowly every 5 min PRN severe pain; when verbally requested by provider., Administer over 2 Minutes, Starting on Tue07/13/24 at 1358, Doses can be exceeded under direct oversight of patient by physician., IR Intra-procedure 1507 ($Given - Provi moses: Snehal Alvarez, JASMIN)1521 ($Given - Provider: Snehal Alvarez RN) flumazenil (ROMAZICON) injection 0.2 mg 0.2 mg, Intravenous, EVERY 1 MIN PRN, benzodiazepine reversal, If inadequate response after 45 seconds, may repeat 0.2 mg IV every 1 minute PRN oversedation., Administer over 1 Minutes, Starting on Tue07/13/24 at 1358, Give over 15 seconds. Maximum total dose of 1 mg. Continue monitoring until discharge criteria met for a minimum of 2 hours. Use with caution in patients on benzodiazepine therapy., IR Intra-procedure lidocaine 1 % 1-30 mL (COMPLETED) 1-30 mL, Intradermal, ONCE PRN, local anesthetic. When verbally ordered by prescriber during the procedure., Starting on Tue07/13/24 at 1358, For 1 dose, Dose to be divided into smaller volumes appropriate for the procedure. Provider to administer intradermally., IR Intra-procedure 1524 ($Given by Ot r - Provider: Snehal Alvarez RN - Comment: Given by DR. Reeves to Rt. neck/chest at beginning of procedure.) midazolam (VERSED) injection 0.5-2 mg 0.5-2 mg, Intravenous, Administer over 1 Minutes, EVERY 4 MIN PRN, sedation, If inadequate response may repeat 0.5 mg IV slowly every 4 minutes PRN sedation until desired response; when verbally requested by provider., Starting on Tue07/13/24 at 1358, Doses can be exceeded under direct oversight of patient by physician. This drug may cause significant respiratory depression. Monitor respiratory status and vital signs carefully for 1 hour after each dose., IR Intra-procedure naloxone (NARCAN) injection 0.2 mg(Linked Group 1) 0.2 mg, Intravenous, EVERY 2 MIN PRN, opioid reversal, Starting on Tue07/13/24 at 1358, Administer intravenous route when available and notify provider when administered. For unintended sedation or respiratory depression if all of the below criteria are met: ~ respiratory rate LESS than or EQUAL to 8. ~SaO2 less than 92% and or/end-tidal CO2 is greater than 50. ~ the patient is receiving an opioid, has unintended sedations assessed as RASS (-3), and is currently not on mechanical ventilation. RASS scale moderate (-3) is movement or eye opening to voice but no eye contact. Patient Monitoring Once the patient has demonstrated a response to the naloxone, continue to monitor respiratory rate, depth, oxygen saturation and end-tidal CO2 (if available) every 15 minutes x 2, then every 30 minutes x 2, then every 1 hour x 1 after each naloxone dose. Consider transfer to ICU if patient respiratory parameters have not improved after 4 naloxone doses., IR Intra-procedure naloxone (NARCAN) injection 0.2 mg(Linked Group 1) 0.2 mg, Intramuscular, EVERY 2 MIN PRN, opioid reversal, Starting on Tue07/13/24 at 1358, Administer intramuscular if an intravenous route is not available and notify provider when administered. For unintended sedation or respiratory depression if all of the below criteria are met: ~ respiratory rate LESS than or EQUAL to 8. ~SaO2 less than 92% and or/end-tidal CO2 is greater than 50. ~ the patient is receiving an opioid, has unintended sedations assessed as RASS (-3), and is currently not on mechanical ventilation. RASS scale moderate (-3) is movement or eye opening to voice but no eye contact. Patient Monitoring Once the patient has demonstrated a response to the naloxone, continue to monitor respiratory rate, depth, oxygen saturation and end-tidal CO2 (if available) every 15 minutes x 2, then every 30 minutes x 2, then every 1 hour x 1 after each naloxone dose. Consider transfer to ICU if patient respiratory parameters have not improved after 4 naloxone doses., IR Intra-procedure naloxone (NARCAN) injection 0.4 mg(Linked Group 1) 0.4 mg, Intravenous, EVERY 2 MIN PRN, opioid reversal, Starting on Tue07/13/24 at 1358, Administer intravenous route when available and notify provider when administered. For unintended sedation or respiratory depression if all of the below criteria are met: ~ respiratory rate LESS than or EQUAL to 8. ~ SaO2 less than 92% and or/end-tidal CO2 is greater than 50. ~ the patient is receiving an opioid, has unintended sedation assessed as RASS (-4) or (-5) and patient is currently not on mechanical ventilation. RASS scale (-4) is deep sedation with no response to voice but movement or eye opening to physical stimulation. RASS scale (-5) is unarousable. Patient Monitoring Once the patient has demonstrated a response to the naloxone, continue to monitor respiratory rate, depth, oxygen saturation and end-tidal CO2 (if available) every 15 minutes x 2, then every 30 minutes x 2, then every 1 hour x 1 after each naloxone dose. Consider transfer to ICU if patient respiratory parameters have not improved after 4 naloxone doses., IR Intra-procedure naloxone (NARCAN) injection 0.4 mg(Linked Group 1) 0.4 mg, Intramuscular, EVERY 2 MIN PRN, opioid reversal, Starting on Tue07/13/24 at 1358, Administer intramuscular if an intravenous route is not available and notify provider when administered. For unintended sedation or respiratory depression if all of the below criteria are met: ~ respiratory rate LESS than or EQUAL to 8. ~ SaO2 less than 92% and or/end-tidal CO2 is greater than 50. ~ the patient is receiving an opioid, has unintended sedation assessed as RASS (-4) or (-5) and patient is currently not on mechanical ventilation. RASS scale (-4) is deep sedation with no response to voice but movement or eye opening to physical stimulation. RASS scale (-5) is unarousable. Patient Monitoring Once the patient has demonstrated a response to the naloxone, continue to monitor respiratory rate, depth, oxygen saturation and end-tidal CO2 (if available) every 15 minutes x 2, then every 30 minutes x 2, then every 1 hour x 1 after each naloxone dose. Consider transfer to ICU if patient respiratory parameters have not improved after 4 naloxone doses., IR Intra-procedure sodium chloride (PF) 0.9% PF flush 10 mL 10 mL, Intracatheter, EVERY 15 MIN PRN, post meds or blood draw, or to flush dialysis catheter port for slow flow, FLUSH dialysis catheter - RED LUMEN, Starting on Tue07/13/24 at 1644, Flush CVC with 10 mL post IV meds/20 mL post blood draw or to flush dialysis catheter port for slow flow. Aspirate and discard 3 mL prior to flushing., Dialysis sodium chloride (PF) 0.9% PF flush 10 mL 10 mL, Intracatheter, EVERY 15 MIN PRN, post meds or blood draw, or to flush dialysis catheter port for slow flow, FLUSH dialysis catheter - BLUE LUMEN, Starting on Tue07/13/24 at 1644, Flush CVC with 10 mL post IV meds/20 mL post blood draw or to flush dialysis catheter port for slow flow. Aspirate and discard 3 mL prior to flushing., Dialysis sodium chloride 0.9 % bag TABLE SOLN 1 Bag, TABLE SOLN, CONTINUOUS PRN, other, Catheter prep table solution use as directed by provider., Starting on Tue07/13/24 at 1358, Maximum total dose 5000 mL Nurse will document number of bags used at the end of the procedure. NOT A PRESSURE BAG, IR Intra-procedure sodium chloride 0.9% BOLUS 100-150 mL Intravenous, 100-150 mL, EVERY 15 MIN PRN, Until hypotensive symptoms resolve, Starting on Tue07/13/24 at 1644, For 10 doses, Up to 1000 mL maximum total dose. Give if needed to manage Systolic Blood Pressure as indicated in Hemodialysis Single Treatment set up. Notify provider if patient blood pressure is not responsive with the bolus., Dialysis Linked Groups Order Group 1: naloxone (NARCAN) injection 0.2 mgJump to med 0.2 mg, Intravenous, EVERY 2 MIN PRN, opioid reversal, Starting on Tue07/13/24 at 1358, Administer intravenous route when available and notify provider when administered. For unintended sedation or respiratory depression if all of the below criteria are met: ~ respiratory rate LESS than or EQUAL to 8. ~SaO2 less than 92% and or/end-tidal CO2 is greater than 50. ~ the patient is receiving an opioid, has unintended sedations assessed as RASS (-3), and is currently not on mechanical ventilation. RASS scale moderate (-3) is movement or eye opening to voice but no eye contact. Patient Monitoring Once the patient has demonstrated a response to the naloxone, continue to monitor respiratory rate, depth, oxygen saturation and end-tidal CO2 (if available) every 15 minutes x 2, then every 30 minutes x 2, then every 1 hour x 1 after each naloxone dose. Consider transfer to ICU if patient respiratory parameters have not improved after 4 naloxone doses., IR Intra- procedure Or naloxone (NARCAN) injection 0.4 mgJump to med 0.4 mg, Intravenous, EVERY 2 MIN PRN, opioid reversal, Starting on Tue07/13/24 at 1358, Administer intravenous route when available and notify provider when administered. For unintended sedation or respiratory depression if all of the below criteria are met: ~ respiratory rate LESS than or EQUAL to 8. ~ SaO2 less than 92% and or/end-tidal CO2 is greater than 50. ~ the patient is receiving an opioid, has unintended sedation assessed as RASS (-4) or (-5) and patient is currently not on mechanical ventilation. RASS scale (-4) is deep sedation with no response to voice but movement or eye opening to physical stimulation. RASS scale (-5) is unarousable. Patient Monitoring Once the patient has demonstrated a response to the naloxone, continue to monitor respiratory rate, depth, oxygen saturation and end-tidal CO2 (if available) every 15 minutes x 2, then every 30 minutes x 2, then every 1 hour x 1 after each naloxone dose. Consider transfer to ICU if patient respiratory parameters have not improved after 4 naloxone doses., IR Intra-procedure Or naloxone (NARCAN) injection 0.2 mgJump to med 0.2 mg, Intramuscular, EVERY 2 MIN PRN, opioid reversal, Starting on Tue07/13/24 at 1358, Administer intramuscular if an intravenous route is not available and notify provider when administered. For unintended sedation or respiratory depression if all of the below criteria are met: ~ respiratory rate LESS than or EQUAL to 8. ~SaO2 less than 92% and or/end-tidal CO2 is greater than 50. ~ the patient is receiving an opioid, has unintended sedations assessed as RASS (-3), and is currently not on mechanical ventilation. RASS scale moderate (-3) is movement or eye opening to voice but no eye contact. Patient Monitoring Once the patient has demonstrated a response to the naloxone, continue to monitor respiratory rate, depth, oxygen saturation and end-tidal CO2 (if available) every 15 minutes x 2, then every 30 minutes x 2, then every 1 hour x 1 after each naloxone dose. Consider transfer to ICU if patient respiratory parameters have not improved after 4 naloxone doses., IR Intra- procedure Or naloxone (NARCAN) injection 0.4 mgJump to med 0.4 mg, Intramuscular, EVERY 2 MIN PRN, opioid reversal, Starting on Tue07/13/24 at 1358, Administer intramuscular if an intravenous route is not available and notify provider when administered. For unintended sedation or respiratory depression if all of the below criteria are met: ~ respiratory rate LESS than or EQUAL to 8. ~ SaO2 less than 92% and or/end-tidal CO2 is greater than 50. ~ the patient is receiving an opioid, has unintended sedation assessed as RASS (-4) or (-5) and patient is currently not on mechanical ventilation. RASS scale (-4) is deep sedation with no response to voice but movement or eye opening to physical stimulation. RASS scale (-5) is unarousable. Patient Monitoring Once the patient has demonstrated a response to the naloxone, continue to monitor respiratory rate, depth, oxygen saturation and end-tidal CO2 (if available) every 15 minutes x 2, then every 30 minutes x 2, then every 1 hour x 1 after each naloxone dose. Consider transfer to ICU if patient respiratory parameters have not improved after 4 naloxone doses., IR Intra- procedure documented in this encounter Care Teams Body Man Relationship Specialty Start Date End Date Rosamaria Garcia PA-C [address] [place] [address] PCP - General 12/15/23 [place] [id number] [place] [address] Assigned Gastroenterology Provider 01/29/23 documented as of this encounter
--- OUTSIDE RECORDS SUMMARY | 2024-08-23 01:44 | XMS_ITS | Encounter Summary ---
Author Organization [place] Address [address] [facility] [place] [address] Care Team Providers Care Steel Wool Machine Operator Name Role Phone Kedar Tello MD Unavailable [phone] Rosamaria Garcia PA-C Primary Care Provider [phone] Reason for Visit * Reason Comments Vascular Access Problem Encounter Details Date Type Department Care Team (Late st Contact Info) Description 07/13/2024 4:14 PM CDT - 07/13/2024 9:16 PM CDT Emergency [facility] Emergency Dept [address] [place] [address] [phone] Rosamaria Reeves DO [facility] [address] [place], [place] [address] Corona Leonard MD [facility] [address] [facility] [address] [place], [place] [address] Hyperkalemia; End stage renal disease on dialysis (H); Clotted dialysis access, initial encounter; Chronic pain disorder; Continuous use of opioids Discharge Disposition: Home or Self Care Social [...] on file 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 * Hyperkalemia (Mauritanian) * Dialysis: Your Vascular Access: Video (Mauritanian) documented in this encounter Medications at Time of Discharge amLODIPine (NORVASC) 10 MG tabletIndications: ESRD (end stage renal disease) on dialysis (H),Hyperphosphate sharita,Essential hypertension Take 1 tablet (10 mg) by mouth daily 90 tablet 3 05/27/2017 AMLODIPINE BESYLATE PO Take 10 mg by mouth daily. B Complex Vitamins (VITAMIN B COMPLEX) tablet Take 1 tablet by mouth daily B emukbvh-M-yhtcz acid (NEPHROCAPS) 1 MG capsule Take 1 [...] 3 05/27/2017 documented as of this encounter ED Notes * Jasmine Macedo RN - 07/13/2024 8:52 PM CDT Bed: ED34 Expected date: 07/13/24 Expected time: 8:51 PM Means of arrival: Comments: Dialysis Pt * Corona Leonard MD - 07/13/2024 4:57 PM CDT Emergency Department Note History of Present Illness Chief Complaint: I need dialysis HPI Vik Thakkar is a 54 year old male with a history of end-stage renal disease for which he normally receives Tuesday dialysis in [place] through left upper extremity dialysis graft who was sent to the emergency department for emergent dialysis due to hyperkalemia. He states that he had his last full dialysis run 2 days ago, though yesterday he had some bleeding from his leftarm fistula which was sutured in the [place] emergency department, workup revealed that it was clotted. Ultimately he was sent from [place] clinic today to the interventional radiology suite here at [facility] where he had a new right neck tunneled dialysis catheter placed in anticipation of dialysis today. He states that he feels fine, he has chronic back pain for which she normally takes oxycodone and he requests a dose of this though his back pain is not new. He denies breathing troubles. No fevers. No vomiting. He is expecting to get dialysis. He lives with his son who will notbe able to pick him up after dialysis. Review of External Notes: I personally reviewed prior records including nephrology note from Dr. Banks from earlier this afternoon. Also reviewed labs from earlier today which revealed a potassium of 6.4. I also reviewed the prescription monitoring program and see consistent prescriptions for oxycodone. Past Medical History Medical History and Problem List Past Medical History: Diagnosis Date Arthritis Cannabis abuse, unspecified Diabetes mellitus (H) Dialysis patient Generalized anxiety disorder History of blood transfusion Hyperpotassemia Hypertension Major depressive disorder, single episode, severe, without mention of psychotic behavior Methicillin resistant Staphylococcus aureus in conditions classified elsewhere and of unspecified site Other and unspecified hyperlipidemia Other, mixed, or unspecified nondependent drug abuse, unspecified Renal dialysis status(V45.11) Renal disease Medications amLODIPine (NORVASC) 10 MG tablet AMLODIPINE BESYLATE PO B Complex Vitamins (VITAMIN B COMPLEX) tablet B uquwsdi-N-ildpp acid (NEPHROCAPS) 1 MG capsule calcium acetate (PHOSLO) 667 MG CAPS GABAPENTIN PO LORazepam (ATIVAN) 0.5 MG tablet METOPROLOL TARTRATE PO Omeprazole (PRILOSEC PO) oxyCODONE (ROXICODONE) 5 MG tablet PARICALCITOL PO sevelamer (RENVELA) 800 MG tablet Surgical History Past Surgical History: Procedure Laterality Date CRYOTHERAPY 02/09/2012 Procedure: CRYOTHERAPY;; Surgeon: Shayan Meadows MD; Location: [facility] CRYOTHERAPY 10/09/2012 Procedure: CRYOTHERAPY;; Surgeon: Shayan Meadows MD; Location: [facility] IR DIALYSIS FISTULOGRAM LEFT 07/27/2018 IR DIALYSIS FISTULOGRAM LEFT 07/10/2019 IR DIALYSIS FISTULOGRAM LEFT 07/31/2020 IR DIALYSIS FISTULOGRAM LEFT 08/27/2021 IR DIALYSIS FISTULOGRAM LEFT 07/06/2022 IR DIALYSIS FISTULOGRAM LEFT 01/04/2023 IR DIALYSIS FISTULOGRAM LEFT 08/11/2023 IR DIALYSIS FISTULOGRAM LEFT 12/15/2023 IR DIALYSIS FISTULOGRAM RIGHT 03/24/2021 IR PICC PLACEMENT > 5 YRS OF AGE 901/27/2017 VASCULAR SURGERY VITRECTOMY PARSPLANA WITH 23 GAUGE SYSTEM 02/09/2012 Procedure: VITRECTOMY PARSPLANA WITH 23 GAUGE SYSTEM; RIGHT 23 GAUGE VITRECTOMY, LASER, EPIRETINAL MEMBRANE PEEL, CRYOTHERAPY, AIR FLUID EXCHANGE, INFUSION OF 14% C3F8 GAS; Surgeon: Rose Meadows MD; Location: [facility] VITRECTOMY PARSPLANA WITH 23 GAUGE SYSTEM 10/09/2012 Procedure: VITRECTOMY PARSPLANA WITH 23 GAUGE SYSTEM; LEFT PARSPLANA VITRECTOMY WITH 23 GAUGE SYSTEM, ENDOLASER, EPIRETINAL MEMBRANE REMOVAL ; Surgeon: Shayan Meadows MD; Location: [facility] wisdom teeth[ Physical Exam Patient Vitals for the past 24 hrs: BP Temp Pulse Resp SpO2 Height Weight 07/13/24 1338 (!) 155/90 97.2 ??F (36.2 ??C) 81 15 100 % -- -- 07/13/24 1337 -- -- -- -- -- 1.651 m (5' 5) 62.1 kg (136 lb 14.5 oz) Physical Exam General: Chronically ill-appearing male sitting upright in room 1 HENT: mucous membranes moist CV: rate as above, regular rhythm, left upper extremity graft with dressing over it but no externalbleeding, no JVD Right neck tunneled dialysis catheter in place Resp: normal effort, speaks in full phrases, no stridor, no cough observed GI: abdomen soft and nontender, no guarding, negative Bowie's sign MSK: no bony tenderness to chest Skin: appropriately warm and dry Neuro: alert, clear speech, oriented Psych: cooperative Diagnostics Lab Results K 6.4 earlier today ED Course Medications Administered Medications oxyCODONE (ROXICODONE) tablet 10 mg (has no administration in time range) ED Course and Discussion of Management ED Course as of 07/13/242252Jul 13, 2024 1639 I spoke with ED RN, dialysis orders available. 2054 I went to room 34 because the patient was electronically signed there, presumably back from dialysis. However, room is empty, I spoke with nurse. Tentative plan to discharge him pending uneventful return to the emergency department from dialysis. Additional Documentation Social Determinants of Health: Transportation MIPS None Medical Decision Making / Diagnosis Medical Decision Making: Patient was sent to the emergency department for emergent dialysis given his hyperkalemia in the setting of end-stage renal disease and having required urgent placement of a tunneled dialysis catheter just prior to arrival to the emergency department today, given that his left arm graft is not usable at this time. He was transferred emergently to the dialysis suite where he underwent uneventful dialysis, after which she was deemed an appropriate candidate for discharge. No signs or symptoms of an additional acute process. He was given oxycodone for his ongoing chronic pain, in accordance withher chronic and recurrent pain policy and after reviewing the SMART ENERGY SPECIALIST. He will need close follow-up care through his primary care and nephrology, patient is aware of this. Discharged home in improved condition. Disposition Discharged Diagnosis ICD-10-CM 1. Hyperkalemia E87.5 2. End stage renal disease on dialysis (H) N18.6 Z99.2 3. Clotted dialysis access, initial encounter T82.49XA 07/13/2024 MD Aisha Alcazar Jeffrey Alan, MD 07/13/245 * Marli Kitchen RN - 07/13/2024 4:14 PM CDT Bed: ED01 Expected date: Expected time: Means of arrival: Comments: IR pt * Jadyn Smith RN - 07/13/2024 1:35 PM CDT Patient Brought in by ambulance from dialysis clinic from [place]. Patient has a clotted dialysis port. VSS en route for EMS. documented in this encounter Plan of Treatment Not on file documented as of this encounter Visit Diagnoses Diagnosis Hyperkalemia Hyperpotassemia End stage renal disease on dialysis (H) End stage renal disease Clotted dialysis access, initial encounter Chronic pain disorder Chronic pain syndrome Continuous use of opioids documented in this encounter Administered Medications Inactive Administered Medications - up to 3 most recent administrations Medication Order MAR Action Action Date Dose Rate Site oxyCODONE (ROXICODONE) tablet 10 mg 10 mg, Oral, ONCE, On Tue07/13/24 at 1640, For 1 dose $Given 07/13/2024 6:56 PM CDT 10 mg documented in this encounter Active and Recently Administered Medications Times are shown in CDT. Scheduled Medication Order 07/11/2024 07/12/2024 07/13/2024 oxyCODONE (ROXICODONE) tablet 10 mg (COMPLETED) 10 mg, Oral, ONCE, On Tue07/13/24 at 1640, For 1 dose 1856 ($Given - Provi moses: Sobeida Tomlin RN) documented in this encounter Care Teams Steel Wool Machine Operator Relationship Specialty Start Date End Date Rosamaria Garcia PA-C [address] [place] [address] PCP - General 12/15/23 [place] [address] [place] [address] Assigned Gastroenterology Provider 01/29/23 documented as of this encounter
--- OUTSIDE RECORDS SUMMARY | 2024-08-23 01:44 | XMS_ITS | Encounter Summary ---
Author Organization [place] Address [address] [facility] 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
--- NOTE | 2024-08-23 02:01 | CRLHL7_ITS ---
For Patients: As a result of the Century Cures Act, medical imaging exams and procedure reports are released immediately into your electronic medical record. You may view this report before your referring provider. If you have questions, please contact your health care provider. INDICATION: Mid abdominal pain, dialysis patient. TECHNIQUE: CT abdomen and pelvis without contrast. COMPARISON: 04/21/2023. FINDINGS: Lower chest: Unremarkable. Liver: Normal in size and attenuation. No suspicious masses. Gallbladder and bile ducts: Cholecystectomy. Prominent intra and extrahepatic bile ducts could represent post cholecystectomy reservoir syndrome. Pancreas: Unremarkable. No mass or inflammation. Spleen: Normal in size. Splenule. No masses. Adrenal glands: Normal in size. No nodules. Kidneys: Atrophic kidneys with cysts and subcentimeter hypodense lesions that are too small to characterize. No suspicious masses, stones, or hydronephrosis. GI tract: Normal in caliber. No sign of mass or inflammation. Normal appendix. Above average colonic stool burden could represent constipation. Vasculature: Dense atherosclerotic calcifications of the aorta and branch vessels. Abdominal aorta is normal in caliber. Lymph nodes: No lymphadenopathy. Peritoneum/Abdominal Wall: Unremarkable. No sign of mass or infiltration. No free air or significant free fluid. Pelvis: Decompressed bladder. Unremarkable prostate. Bones: No acute lesions. IMPRESSION: No definite acute findings to explain the patient`s symptoms. Please note that all CT scans at this facility use dose modulation, iterative reconstruction, and/or weight-based dosing when appropriate to reduce radiation dose to as low as reasonably achievable. Dictated by Arthur Santos MD @ 08/23/2024 2:51:20 AM (Electronically Signed)
[2024-08-23] MEDS: MORPHINE 4 MG/ML INJ IVP (02:06)
[2024-08-23] MEDS: ONDANSETRON 2 MG/ML inj 4 MG IVP (02:06)
--- OUTSIDE RECORDS SUMMARY | 2024-08-23 02:08 | XMS_ITS | Clinical Summary ---
Author Organization [facility] Address [address] [place] [address] Care Team Providers Care Game Agent Name Role Phone Elsewhere, Pcp Primary Care Provider Unavailabl e Source Comments Patient records contain information from all sites at [facility]. For routine questions regarding patient records, call [phone] during business hours, M-F 8:00 AM - 5:00 PM Central Time. Record requests for emergency care only can be directed to [phone] at any time.[facility] Allergies Active Allergy Reactions Criticality Noted [...] M, W, F with Dr. Brown in [place]. 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 Gender Identity Not on file Sexual Orientation [...] BLOOD ADD-ON Final Result Performing Organization Address City/[facility]/ZIP Co de Phone Number [facility] [address] [place] [address], [facility] DTL [facility] [address] [place] [address] * Hemoglobin A1c (08/05/2017 6:18 AM CDT) Hemoglobin A1c, B 5.2 4.2 - 5.6 % 08/08/2017 1:52 AM CDT [facility] Blood (Blood, Venous) 08/05/2017 6:18 AM CDT 08/07/2017 11:47 PM CDT [facility] BLOOD ADD-ON Final Re sult Performing Organization Address City/[facility]/ZIP Co de Phone Number [facility] [address] [place], [place] [id number] [place] [address] from Last 3 Months or Most Recently Relevant to Health Maintenance Insurance MEDICARE MEDICA Advance Directives For more information, please contact: [phone] * Full Code (Latest Code Status on [...] Answer Comments Full Code: Discussed Care Teams Game Agent Relationship Specialty Start Date End Date Elsewhere, Pcp PCP - General 07/29/20
--- OUTSIDE RECORDS SUMMARY | 2024-08-23 02:08 | XMS_ITS | Encounter Summary ---
Author Organization [place] Address [address] [facility] [place] [address] Care Team Providers Care Telegraphic Typewriter Mechanic Name Role Phone Courtney Guardado MD Primary Care Provider [phone] Gavin Lombardo Primary Care [facility] Kedar Dang MD Unavailable [phone] Rosamaria Garcia PA-C Primary Care Provider [phone] Encounter Details Date Type Department Care Team (Late st Contact Info) Description 05/24/2018 External Order Results [facility] [address] [place] [address] Outside, Provider Social History Tobacco Use Types Packs/Day Years Used Date Smoking Tobacco: Every Day Cigarettes 0.5 27 Smokeless Tobacco: Never Alcohol Use Standard Drinks/Week Comments Yes 0 (1 standard drink = 0.6 oz pur e alcohol) occ. 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 Gender Identity Not on file Sexual Orientation Not on file documented as of this encounter Plan of Treatment Not on file documented as of this encounter Visit Diagnoses Not on filedocumented in this encounter Care Teams Telegraphic Typewriter Mechanic Relationship Specialty Start Date End Date Courtney Guardado MD PCP - General 03/09/12 07/30/20 Gavin Lombardo PA PCP - General Family Practice 07/31/20 12/14/23 Rosamaria Garcia PA-C [address] [place] [address] PCP - General 12/15/23 [place] [address] [place] [address] Assigned Gastroenterology Provider 01/29/23 documented as of this encounter
--- OUTSIDE RECORDS SUMMARY | 2024-08-23 02:08 | XMS_ITS ---
Author Organization [facility] Address [address] [place] [address] Care Team Providers Care Relationship Specialist Name Role Phone Elsewhere, Pcp Primary Care [...] M, W, F with Dr. Brown in [place]. 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 LAB BLOOD ADD-ON Final Result [facility] [address] [place] [address], [facility] DTL [facility] [address] [place] [address] * Hemoglobin A1c (08/05/2017 6:18 AM CDT) Hemoglobin A1c, B 5.2 4.2 - 5.6 % 08/08/2017 1:52 AM CDT [facility] Blood (Blood, Venous) 08/05/2017 6:18 AM CDT 08/07/2017 11:47 PM CDT us [facility] BLOOD ADD-ON Final Re sult [facility] [address] [place] [address], [facility] from Last 3 Months or Most Recently Relevant to Health Maintenance
--- OUTSIDE RECORDS SUMMARY | 2024-08-23 02:08 | XMS_ITS | Encounter Summary ---
Author Organization [place] Address [address] [facility] [place] [address] Care Team Providers Care Typing Element Machine Operator Name Role Phone Gavin Lombardo Primary Care Pro[facility] moses Unavailable Kedar Tello MD Unavailable Rosamaria Garcia PA-C Primary Care Provider [phone] Encounter Details Date Type Department Care Team (Late st Contact Info) Description 08/24/2021 External Order Results [facility] [address] [place] [address] Outside, Provider Social History Tobacco Use Types Packs/Day Years Used Date Smoking Tobacco: Every Day Cigarettes 0.5 27 Smokeless Tobacco: Never Alcohol Use Standard Drinks/Week Comments Yes 0 (1 standard drink = 0.6 oz pur e alcohol) occ. 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
--- OUTSIDE RECORDS SUMMARY | 2024-08-23 02:09 | XMS_ITS | CONTINUITY OF CARE DOCUMENT ---
Author Name User, AMANDEEPE Address [address] [place] [address] Organization [facility] Address [address] [place] [address] [address] [place] [address] Phone [phone] Care Team Providers Care Addictions Counselor Name Role Phone User, QIE Unavailable Unavailable ALLERGIES Allergy Name Onset Date Reaction Criticality Status Provider Or ganization PENICILLIN High Criticality active R andrew [address] [facility] [address] [facility] DILAUDID High Criticality active Ra anjel Ware[address] [facility] [address] [facility] HISTORY OF MEDICATION USE Medication Instructions Status Dates Provider Indications Com ments Organization metoprolol tartrate 25 mg tablet TAKE ONE TABLET (25 MG) BY MOUTH TWO TIMES DAILY. active Judith [address] [facility] [address] [facility] lidocaine-priloc lon 2.5 %-2.5 % topical cream APPLY A SMALL AMOUNT TO SKIN THREE TIMES A WEEK APPLY TO SKIN OVER DIALYSIS ACCESS 30 MIN PRIOR TO EACH DIALYSIS active Judith [address] [facility] [address] [facility] tizanidine 2 mg tablet TAKE 1 TABLET UP TO 2 TIMES DAILY IF NEEDED FOR MUSCLE SPASM active Judith [address] [facility] [address] [facility] atorvastatin 40 mg tablet TAKE ONE TABLET (40 MG) BY MOUTH AT BEDTIME. active Judith Islas [address] [facility] [address] [facility] aspirin 81 mg tablet,delayed release 1 once a day active Judith [address] [facility] [address] [facility] ondansetron 8 mg disintegrating tablet as directed active Judith [address] [facility] [address] [facility] Velphoro 500 mg chewable tablet 2 three times a day active Judith Islas [address] [place] [address] [facility] oxycodone 10 mg tablet as directed active Judith Islas [address] [place] [address] [facility] bisacodyl 10 mg rectal suppository as directed active Judith teresa [address] [place] [address] [facility] Carafate 100 mg/mL oral suspension as directed active Judith Islas [address] [place] [address] [facility] cyclobenzaprine 10 mg tablet as directed active Judith Islas [address] [place] [address] [facility] Suyapa-ulysses 8.6 mg tablet as directed active Judith Islas [address] [place] [address] [facility] hydroxyzine pamoate 25 mg capsule as directed active Judith Islas [address] [place] [address] [facility] Lasix 80 mg tablet 1 as directed active Judith Islas [address] [place] [address] [facility] lorazepam 0.5 mg tablet 1 as needed as directed active Judith Islas [address] [place] [address] [facility] RenaPlex-D 800 mcg-12.5 mg-2,000 unit tablet 1 every evening active Judith Islas [address] [place] [address] [facility]
--- OUTSIDE RECORDS SUMMARY | 2024-08-23 02:09 | XMS_ITS | Clinical Summary ---
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 Brown in [place]. Dependence on renal dialysis 06/08/2011 08/23/2019 Overview (09/21/2017): Overview: Overview: Dialysis M, W, F with Dr. Brown in [place]. ACP (advance care planning) 03/14/2011 05/11/2023 Overview (03/14/2011): Patient has identified Health Care Agent(s): Patient verbally identifies his significant other as health care decision maker however, she does not have a phone number at present. To contact Patient's family/SO contact can be made with Abhay Tovar (brother in law) [phone] and Thomas Carty [phone] Friend Patient has Advance Care Plan Documents [...] Providers [address] [place] [address] Jovanna Sands, assistant women's basketball coach Eval 07/31/2024 Refill [facility] [address] [place] [address] Rosamaria Garcia PA Refill Request (oxyCODONE 10 mg tablet ) 07/31/2024 Telephone [facility] [address] [place] [address] Dary Longoria MD Results 07/26/2024 10:30 AM CDT Procedure Only [facility] [address] [facility] [address] [place] [address] Dary Longoria MD Procedure 07/26/2024 Travel 07/24/2024 Refill [facility] [address] [place] [address] Rosamaria Garcia PA Refill Request (Tizanidine) 07/11/2024 Telephone [facility] [address] [place] [address] Rosamaria Garcia PA Medication Management (atorvastatin (LIPITOR) 40 mg tablet) 07/09/2024 Patient Outreach [facility] [address] [place] [address] Sobeida Prasad, RN Student Primary RN Care Management; Hospital F/U (Lace=20) 07/05/2024 3:45 PM LABORATORY COURIER - 07/05/2024 4:40 PM LABORATORY COURIER Surgery [address] [address] Juan Francisco Don MD CYSTOSCOPY 07/05/2024 3:18 PM LABORATORY COURIER Anesthesia Event [address] [address] Mejia Carrera MD 07/05/2024 1:28 PM LABORATORY COURIER - 07/06/2024 1:31 PM LABORATORY COURIER Hospital Encounter [address] [address] Juan Francisco Don MD Vanderloo, Matthew Robert, MD Microhematuria (Primary Dx); ESRD on hemodialysis (HC) Discharge Disposition: Home Self Care 07/05/2024 Travel 07/03/2024 3:35 PM LABORATORY COURIER Office Visit [facility] [address] [place] [address] Olivier Phillips MD Preoperative Exam (Cystoscopy 07/05) 07/03/2024 11:50 AM LABORATORY COURIER Office Visit [facility] [address] [facility] [address] [place] [address] Jasmin Pugh PA Derm Problem (lesions) 07/03/2024 Travel 06/29/2024 Refill [facility] [address] [place] [address] Rosamaria Garcia PA Refill Request (oxyCODONE 10 mg tablet) 06/04/2024 8:50 AM LABORATORY COURIER Office Visit [facility] [address] [place] [address] Rosamaria Garcia PA Hand Pain/problem (Bilateral hand and foot pain-arthritis pain) 06/04/2024 Travel 05/31/[address] [address] Rosamaria Garcia PA Refill Request (oxyCODONE 10 mg tablet) 05/30/[address] [address] Rosamaria Garcia PA Refill Request (Dicyclomine) 05/30/[address] [address] Rosamaria Garcia PA Medication Management (dicyclomine (BENTYL) 20 mg tablet) 05/30/[address] [address] Rosamaria Garcia PA Results 05/29/2024 2:50 PM LABORATORY COURIER Office Visit [address] [address] Rosamaria Garcia PA Preoperative Exam (Dr. Florencia [...] on file Legal Sex Male 5:23 AM LABORATORY COURIER Gender Identity Not on file Sexual Orientation Not on file Occupation Industry Job Start Date Job End Date unempolyed Not on file Not on file Not on file Obstetrics History Last Filed Vital Signs Vital Sign Reading Time Taken Comments Blood Pressure 144/80 07/26/2024 10:29 AM CDT Pulse 80 07/06/2024 12:00 PM LABORATORY COURIER Temperature 36.3 C (97.4 F) 07/06/2024 12:00 AM LABORATORY COURIER Respiratory Rate 18 07/06/2024 4:00 AM LABORATORY COURIER Oxygen Saturation 100% 07/06/2024 12:00 PM LABORATORY COURIER Inhaled Oxygen Concentration - - Weight 62.4 kg (137 lb 8 oz) 07/06/2024 6:00 AM LABORATORY COURIER Height 166.4 cm (5' 5.5) 07/05/2024 1:39 PM LABORATORY COURIER Body Mass Index 22.53 07/05/2024 1:39 PM LABORATORY COURIER Plan of Treatment Health Maintenance Due Date [...] Card MD Medical Devices Implanted Type Area Milliner Helper Device Identifier Shelf Expiration Date Model / Serial / Lot Graft Vasc 8mm 40cm Propaten Thin Wall - [id number] Implanted:Qty: 1 on 04/10/2015 by Ash Zambrano MD at [facility] Left: Arm [employer] 10/23/2018 [id number] # / / Power Port Isp Mri 6fr [id number] - Stan Only - [id number] Implanted:Qty: 1 on 01/27/2017 by Kiet Hernandez DO at [facility] N/A: Chest [employer] 03/01/2018 [id number] / / [id number] Description:PowerPort isp M. R.I. Implantable Port Sys Ancr Sut 4.75mm Biocomposite - [id number] Implanted:Qty: 1 on 10/27/2023 by Milind Arroyo MD at [facility] Right: Shoulder [employer] 06/30/2027 [id number] / / [id number] Procedures Procedure Name Priority Date/Time Associated Diagnosis Comments PATH TISSUE EXAM Routine 07/26/2024 10:30 AM CDT Epidermoid cyst GLUCOSE METER Timed 07/06/2024 10:52 AM LABORATORY COURIER GLUCOSE METER Timed 07/06/2024 6:59 AM LABORATORY COURIER HEMOGLOBIN A1C MONITORING (POCT) Early AM 07/06/2024 5:19 AM LABORATORY COURIER GLUCOSE METER Timed 07/05/2024 11:51 PM LABORATORY COURIER GLUCOSE METER Timed 07/05/2024 11:01 PM LABORATORY COURIER GLUCOSE METER Timed 07/05/2024 9:47 PM LABORATORY COURIER POTASSIUM STAT 07/05/2024 9:26 PM LABORATORY COURIER GLUCOSE METER Timed 07/05/2024 8:47 PM LABORATORY COURIER POTASSIUM Timed 07/05/2024 8:12 PM LABORATORY COURIER EKG 12 LEAD STAT 07/05/2024 8:06 PM LABORATORY COURIER GLUCOSE METER Timed 07/05/2024 7:42 PM LABORATORY COURIER GLUCOSE METER Timed 07/05/2024 6:41 PM LABORATORY COURIER CBC WITH AUTO DIFFERENTIAL STAT 07/05/2024 6:19 PM LABORATORY COURIER HEPATIC FUNCTION PANEL STAT 07/05/2024 6:19 PM LABORATORY COURIER CBC WITH AUTO DIFFERENTIAL STAT 07/05/2024 6:19 PM LABORATORY COURIER BASIC METABOLIC PANEL STAT 07/05/2024 6:19 PM LABORATORY COURIER GLUCOSE METER Timed 07/05/2024 5:51 PM LABORATORY COURIER POTASSIUM STAT 07/05/2024 5:29 PM LABORATORY COURIER GLUCOSE METER Timed 07/05/2024 5:00 PM LABORATORY COURIER GLUCOSE METER Timed 07/05/2024 4:37 PM LABORATORY COURIER SUPRAGLOTTIC-LMA Routine 07/05/2024 3:33 PM LABORATORY COURIER CYSTOSCOPY Tier 2 07/05/2024 3:07 PM LABORATORY COURIER Hx bladder Cancer Case Notes BOP PT DOES NOT HAVE SOMEONE to stay with him for 24 hours post surgery GLUCOSE METER Timed 07/05/2024 2:59 PM LABORATORY COURIER POTASSIUM KOJO 07/05/2024 2:48 PM LABORATORY COURIER GLUCOSE METER Timed 07/05/2024 2:31 PM LABORATORY COURIER SCAN-CARDIAC STRIP 07/05/2024 12:00 AM LABORATORY COURIER SCAN-CARDIAC STRIP 07/05/2024 12:00 AM LABORATORY COURIER SCAN-CARDIAC STRIP 07/05/2024 12:00 AM LABORATORY COURIER CBC WITH AUTO DIFFERENTIAL Routine 07/03/2024 4:50 PM LABORATORY COURIER Preoperative general physical examination CBC WITH AUTO DIFFERENTIAL Routine 05/29/2024 3:28 PM LABORATORY COURIER Pre-op exam LIPID PANEL W REFLEX MEASURED LDL Routine 04/17/2024 10:16 AM LABORATORY COURIER Type 2 diabetes mellitus with chronic kidney [...] AM CDT) Case Report Pathology Report Case: [id number] Authorizing Provider: Dary Longoria, Collected: 07/26/2024 1030 MD Ordering Location: [facility] Received: 07/26/2024 1613 Clinic Pathologist: María Senior MD Specimen: Skin, Left posterior ear 07/31/2024 9:41 AM CDT [facility] [employer] [facility] Final Diagnosis SKIN, LEFT POSTERIOR EAR, EXCISION: 1. Epidermal inclusion cyst 2. Negative for malignancy 07/31/2024 9:41 AM CDT [facility] [employer] [facility] at 0941 CDT Clinical Information Cyst rule out other 07/31/2024 9:41 AM CDT [facility] [employer] [facility] Gross Description A) Received in formalin, labeled with the patient's name and L posterior ear, is a 1.6 x 1.2 x 1 cm cystic structure which is partially surfaced by wood skin. Specimen is inked blue and sectioned revealing a cystic cavity filled with wood-white material. Agriculture Professor sections are submitted 1 cassette. JPW 07/27/2024 07/31/2024 9:41 AM CDT [facility] [employer] [facility] Microscopic Description The final diagnosis is based on microscopic examination of appropriate sections of all specimens. There is a cystic collection of non-atypical keratinizing squamous epithelium within the dermis. The presence of blue ink is confirmed on tissue sections. 07/31/2024 9:41 AM CDT [facility] [employer] [facility] Additional Information Interpreted at [facility] [employer] [facility] Central Laboratory - [address] [place] [address] S. [facility] [address], [place] [address] 07/31/2024 9:41 AM CDT [facility] [employer] [facility] Other SPECIMEN FROM SKIN / Unknown Non-Blood / Unknown 07/26/2024 10:30 AM CDT 07/26/2024 4:13 PM CDT Dary Longoria MD PATHOLOGY/CYTOLOGY Fi nal Result Performing Organization Address City/[facility]/ZIP Co de Phone Number [facility] LABORATORY [address] [place] [address], * (ABNORMAL) GLUCOSE METER (07/06/2024 10:52 AM LABORATORY COURIER) Only the most recent of13 resultswithin the time period is included. GLUCOSE METER 111(H) 65 - 100 mg/dL 07/06/2024 3:37 PM LABORATORY COURIER [facility] Blood BLOOD SPECIMEN / Unknown 07/06/2024 10:52 AM LABORATORY COURIER 07/06/2024 3:37 PM LABORATORY COURIER Gavin Mcdonald MD CHEMISTRY Yamilet l Result Performing Organization Address City/[facility] Co de Phone Number [place] [id number] [place] [address] * Hemoglobin A1C (07/06/2024 5:19 AM LABORATORY COURIER) HEMOGLOBIN A1C MONITORING (POCT) 5.1 <=6.4 % 07/06/2024 7:51 AM LABORATORY COURIER [facility] Blood BLOOD SPECIMEN / Unknown Venipuncture / Unknown 07/06/2024 5:19 AM LABORATORY COURIER 07/06/2024 5:40 AM LABORATORY COURIER Narrative [facility] - 07/06/2024 7:51 AM LABORATORY COURIER (<=6.9%) Indicates good control (7.0% to 7.9%) Indicates fair control (>=8.0%) Indicates poor control NOTE: These thresholds are guidelines and individual targets may vary. Falsely low levels may be seen with: Recent Transfusion, Recent Significant Blood Loss, Hemolytic Diseases, or Falsely elevated levels may be seen with: Untreated Anemias, Splenectomy Gavin Mcdonald MD CHEMISTRY Yamilet l Result Performing Organization Address City/[facility] Co de Phone Number [address] [address] * Potassium (07/05/2024 9:26 PM LABORATORY COURIER) Only the most recent of4 resultswithin the time period is included. [facility] POTASSIUM 5.1 3.5 - 5.1 mmol/L 07/05/2024 9:50 PM LABORATORY COURIER [facility] Blood BLOOD SPECIMEN / Unknown Butterfly / Unknown 07/05/2024 9:26 PM LABORATORY COURIER 07/05/2024 9:31 PM LABORATORY COURIER Gavin Mcdonald MD CHEMISTRY Yamilet l Result Performing Organization Address [facility] de Phone Number [address] [address] * 12 Lead EKG (07/05/2024 8:06 PM LABORATORY COURIER) [facility] Interpretation Sinus rhythm with 1st degree A-V [...] NOW QTc 455 ms BEYOND NOW P [place] 74 degrees BEYOND NOW R [place] -57 degrees BEYOND NOW T [place] 54 degrees BEYOND NOW 07/05/2024 8:06 PM LABORATORY COURIER 07/11/2024 7:40 AM CDT Gavin Mcdonald MD EKG ORD Yamilet l Result Performing Organization Address City/[facility] Co de Phone Number [place], [place] * (ABNORMAL) CBC WITH AUTO DIFFERENTIAL (07/05/2024 6:19 PM LABORATORY COURIER) Pathologist [facility] WHITE BLOOD COUNT 9.2 4.5 - 11.0 thou/cu mm 07/05/2024 6:23 PM LABORATORY COURIER [facility] RED BLOOD COUNT 3.39(L) 4.30 - 5.90 mil/cu mm 07/05/2024 6:23 PM [facility] HEMOGLOBIN 10.7(L) 13.5 - 17.5 g/dL 07/05/2024 6:23 PM [facility] HEMATOCRIT 33.7(L) 37.0 - 53.0 % 07/05/2024 6:23 PM [facility] MCV 99 80 - 100 fL 07/05/2024 6:23 PM [facility] MCH 31.6 26.0 - 34.0 pg 07/05/2024 6:23 PM [facility] MCHC 31.8(L) 32.0 - 36.0 g/dL 07/05/2024 6:23 PM [facility] RDW 16.3(H) 11.5 - 15.5 % 07/05/2024 6:23 PM [facility] PLATELET COUNT 167 140 - 440 thou/cu mm 07/05/2024 6:23 PM [facility] MPV 9.0 6.5 - 11.0 fL 07/05/2024 6:23 PM [facility] NRBC 0.0 % 07/05/2024 6:23 PM [facility] ABS NRBC 0.0 thou /cu mm 07/05/2024 6:23 PM [facility] % NEUT 71.3 % 07/05/2024 6:23 PM [facility] % LYMPH 18.6 % 07/05/2024 6:23 PM [facility] % MONO 7.3 % 07/05/2024 6:23 PM [facility] % EOS 2.1 % 07/05/2024 6:23 PM [facility] % BASO 0.4 % 07/05/2024 6:23 PM [facility] % IMMATURE GRAN (METAS,MYELOS,OR OS) 0.3 % 07/05/2024 6:23 PM [facility] ABSOLUTE NEUTROPHILS 6.5 1.7 - 7.0 thou/cu mm 07/05/2024 6:23 PM [facility] ABSOLUTE LYMPHOCYTES 1.7 0.9 - 2.9 thou/cu mm 07/05/2024 6:23 PM [facility] ABSOLUTE MONOCYTES 0.7 <0.9 thou/cu mm 07/05/2024 6:23 PM LABORATORY COURIER [facility] ABSOLUTE EOSINOPHILS 0.2 <0.5 thou/cu mm 07/05/2024 6:23 PM LABORATORY COURIER [facility] ABSOLUTE BASOPHILS 0.0 <0.3 thou/cu mm 07/05/2024 6:23 PM LABORATORY COURIER [facility] ABSOLUTE IMMATURE GRANULOCYTES(MET ,MYELOS,PROS) 0.0 <0.3 thou/cu mm 07/05/2024 6:23 PM LABORATORY COURIER [facility] Blood BLOOD SPECIMEN / Unknown Butterfly / Unknown 07/05/2024 6:19 PM LABORATORY COURIER 07/05/2024 6:21 PM LABORATORY COURIER us Gavin Mcdonald MD HEMATOLOGY Yamilet l Result [facility] [address] [place] [address] * (ABNORMAL) Hepatic Function Panel (07/05/2024 6:19 PM LABORATORY COURIER) ALBUMIN 3.8(L) 4.0 - 4.9 g/dL 07/05/2024 6:43 PM [facility] PROTEIN,TOTAL 6.4 6.0 - 8.0 g/dL 07/05/2024 6:43 PM [facility] BILIRUBIN,TOTAL 0.3 0.0 - 1.2 mg/dL 07/05/2024 6:43 PM [facility] BILIRUBIN,DIRECT 0.1 0.0 - 0.2 mg/dL 07/05/2024 6:43 PM [facility] BILIRUBIN,INDIRE CT 0.2 0.2 - 0.8 mg/dL 07/05/2024 6:43 PM [facility] ALK PHOSPHATASE 75 40 - 129 IU/L 07/05/2024 6:43 PM [facility] ALT (SGPT) 21 10 - 50 IU/L 07/05/2024 6:43 PM [facility] AST (SGOT) 21 10 - 50 IU/L 07/05/2024 6:43 PM [facility] Blood BLOOD SPECIMEN / Unknown Butterfly / Unknown 07/05/2024 6:19 PM LABORATORY COURIER 07/05/2024 6:21 PM LABORATORY COURIER Gavin Mcdonald MD CHEMISTRY Yamilet l Result [facility] [address] [place] [address] * (ABNORMAL) Basic Metabolic Panel (07/05/2024 6:19 PM LABORATORY COURIER) SODIUM 134(L) 136 - 145 mmol/L 07/05/2024 6:52 PM [facility] POTASSIUM 6.1(HH) 3.5 - 5.1 mmol/L 07/05/2024 6:52 PM [facility] CHLORIDE 101 98 - 107 mmol/L 07/05/2024 6:52 PM [facility] CO2,TOTAL 20(L) 22 - 29 mmol/L 07/05/2024 6:52 PM [facility] ANION GAP 13 5 - 18 07/05/2024 6:52 PM [facility] GLUCOSE 127(H) 70 - 99 mg/dL 07/05/2024 6:52 PM [facility] CALCIUM 9.9 8.8 - 10.4 mg/dL 07/05/2024 6:52 PM [facility] Comment: Reference ranges for this test were updated on 03/06/2024 to reflect our healthy population more accurately. Reference range changes are not retroactively applied to results, but previous results using the same methodology can be interpreted in the context of the new reference range. BUN 68(H) 6 - 20 mg/dL 07/05/2024 6:52 PM [facility] CREATININE 12.60(HH) 0.70 - 1.20 mg/dL 07/05/2024 6:52 PM [facility] BUN/CREAT RATIO 5(L) 10 - 20 6:52 PM [facility] eGFR 4(L) >90 mL/min/1. 73m2 07/05/2024 6:52 PM [facility] Comment:As of 2021, eG FR is calculated by the CKD-EPI creatinine equation without race adjustment. eGFR can be influenced by muscle mass, exercise, and diet. The reported eGFR is an estimation only and is only applicable if the renal function is stable. Blood BLOOD SPECIMEN / Unknown Butterfly / Unknown 07/05/2024 6:19 PM LABORATORY COURIER 07/05/2024 6:21 PM LABORATORY COURIER us Gavin Mcdonald MD CHEMISTRY Yamilet l Result [place] [id number] * Supraglottic (07/05/2024 3:33 PM LABORATORY COURIER) Narrative Jacquelyn Wolf CRNA - 07/05/2024 3:33 PM LABORATORY COURIER Jacquelyn Wolf CRNA 07/05/2024 3:34 PM Procedure: Supraglottic Patient location during procedure: OR Supraglottic Airway Properties Mask Ventilation: not attempted Type: classic Tube Size: 5 Insertion Attempts: 1 Placement Verification: auscultation and CO2 detection Assessment Assessment: atraumatic and dentition unchanged us Mejia Carrera MD ANESTHESIA PX NOTE ORDERA BLES Final Result * SCAN-CARDIAC STRIP (07/05/2024 12:00 AM LABORATORY COURIER) Narrative 07/05/2024 12:00 AM LABORATORY COURIER Ordered by an unspecified provider. us Other Clinical Staff OTHER Final Resul t * SCAN-CARDIAC STRIP (07/05/2024 12:00 AM LABORATORY COURIER) Narrative 07/05/2024 12:00 AM LABORATORY COURIER Ordered by an unspecified provider. us Other Clinical Staff OTHER Final Resul t * SCAN-CARDIAC STRIP (07/05/2024 12:00 AM LABORATORY COURIER) Narrative 07/05/2024 12:00 AM LABORATORY COURIER Ordered by an unspecified provider. us Other Clinical Staff OTHER Final Resul t * (ABNORMAL) CBC AND DIFFERENTIAL (07/03/2024 4:50 PM LABORATORY COURIER) Only the most recent of2 resultswithin the [...] BLOOD SPECIMEN / Unknown 07/03/2024 4:50 PM LABORATORY COURIER 07/03/2024 4:50 PM LABORATORY COURIER us Olivier Phillips MD HEMATOLOGY Final Resu lt Performing Organization Address [facility]/ZIP Co de Phone Number [employer] [facility] [address] [place] [address], [place] [phone] [facility] [address] [place] [address] * LIPID PANEL W REFLEX MEASURED LDL (04/17/2024 10:16 AM LABORATORY COURIER) CHOLESTEROL, TOTAL 145 <200 mg/dL [facility] [...] LDL-C. Parrish SS et al. JULIEN. 2013;310(19): 7131-0464 (http://education.Uppidy/faq/BFK983) CHOL/HDLC RATIO 2.3 <5.0 (calc) [facility] NON HDL CHOLESTEROL 81 <130 mg/dL (calc) [facility] Comment: For patients with diabetes plus 1 major ASCVD risk factor, treating to a non-HDL-C goal of <100 mg/dL (LDL-C of <70 mg/dL) is considered a therapeutic option. Blood BLOOD SPECIMEN / Unknown 04/17/2024 10:16 AM LABORATORY COURIER 04/17/2024 10:16 AM LABORATORY COURIER us Rosamaria OBRIEN CHEMISTRY Final Resu lt Performing Organization Address City/[facility]/ZIP Co de Phone Number [employer] [facility] [address] [place] [address], [facility] [address] [place] [address] * COLONOSCOPY (12/15/2022 3:12 PM CDT) 12/15/2022 3:12 PM CDT Narrative Transcriptions Arthur Sánchez MD - 12/15/2022 4:16 PM CDT Procedural Care Center Patient Name: Vik Thakkar Procedure Date: 12/15/2022 Gender: Male Date of : 1970 Admit Type: Outpatient Procedure: Colonoscopy Proceduralist: Arthur Sánchez MD - [facility] Indications/Pre-Op Diagnosis: High risk colon cancer surveillance:Personal history of colon cancer Medications: Monitored Anesthesia Care Procedure Description: The patient had risks, benefits and alternatives explained to andgave informed consent. The patient had a stable cardiopulmonary status and judged an adequate candidate for conscious sedation. The endoscope [id number] was passed through the anus andadvanced to [...] Reactive Non Reactive 10/05/2022 1:09 PM CDT [facility] Comment: HIV Negative HIV-1/HIV-2 antibodies and HIV-1 p24 antigen were NOT detected. There is no laboratory evidence of HIV infection. Blood BLOOD SPECIMEN / Unknown Venipuncture / Unknown 10/01/2022 3:44 PM CDT 10/01/2022 3:46 PM CDT Narrative [facility] - 10/05/2022 1:09 PM CDT Performed at: [address] [place] [id number] Community Support Specialist: Sudheer Yanez MD, Phone: [phone] Gavin OBRIEN LABORATORY Fin al Result [facility] ([facility]) [facility] [place] [address], * ANTI HCV (12/26/2021 5:58 AM CDT) Pathologist [facility] HEPATITIS C ANTIBODY Non-React fuentes Non-React fuentes 12/28/2021 5:08 PM CDT [facility] Comment:Antibodies to HCV no t detected; does not exclude the possibility of exposure to HCV. Blood BLOOD SPECIMEN / Unknown Venipuncture / Unknown 12/26/2021 5:58 AM CDT 12/26/2021 6:33 AM CDT Gavin OBRIEN SEND OUTS Fin al Result [facility] LABORATORY [address] [place] [address], from Last 3 Months or Most Recently [...] 06/02/2020 Insurance MEDICARE PART A HB ONLY [employer] [facility] [place] [address] [facility] ONLY Advance Directives [...] Code Status Discussion: Reviewed Preferences Care Teams Pastry Decorator Relationship Specialty Start Date End Date Rosamaria Garcia PA [address] [place] [address] PCP - General Physician Fondant Puff Maker 12/21/22 Radha Baires, RUBBER GASKET INSPECTOR TRIMMER Psychiatry Nurse Practitioner 07/02/16 Rosamaria Dunn Cancer Nurse Coordinator Registered Nurse 11/15/16 Alison Otto, [facility] [address] [place] [address] Mental Health Consultants Assistant Distribution Manager 01/18/17 Christopher Collins MBBS [address] [place] [address] Oncology Oncology 01/11/17 Mark, Nik Crowley [facility] [address] [place] [address] Propulsion Systems Engineer 01/28/17
--- OUTSIDE RECORDS SUMMARY | 2024-08-23 02:09 | XMS_ITS | Encounter Summary ---
Author Organization [place] Address [address] [facility] [place] [address] Care Team Providers Care Liquor Blender Name Role Phone Courtney Guardado MD Primary Care Provider [phone] Gavin Lombardo Primary Care Provi moses Kedar Dang MD Unavailable [phone] Rosamaria Garcia PA-C Primary Care Provider [phone] Reason for Visit * Reason Onset Date Comments Appointment 07/19/2017 called and left patient message related to missed appointment for today Encounter Details Date Type Department Care Team (Late st Contact Info) Description 07/19/2017 Telephone [facility] Imaging [address] [place] [address] Carla Zambrano, JASMIN Appointment (called [...] on file Legal Sex Male 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
--- NOTE | 2024-08-23 02:10 | ED.GENADULT ---
HPI - General Adult General Chief complaint: Abdominal Pain Stated complaint: Abdominal pain Time Seen by Provider: 08/23/24 01:54 Source: patient and EMS Mode of arrival: EMS Limitations: no limitations History of Present Illness HPI narrative: 54-year-old male with a history of chronic pain disorder, hemodialysis and frequent gastroparesis flares presents to the emergency department with diffuse abdominal pain. Reports that he has had nausea and vomiting all day and has been unable to hold down his pain medications. Pain is worsening in nature. No injury or trauma. No bloody stools. Pain started around the time he went to dialysis this morning around 730 which is about 18 hours prior to presentation. Denies complications at dialysis. Has been unable to hold down his pain medications due to the nausea and vomiting. Reports that the pain medications are for chronic back pain. Call the ambulance in the wee hours. Similar episode last fall, notes reviewed. Patient has had multiple ED visits here and at [facility] for chronic abdominal pain. No recent surgeries or new acute pathology has been found within the last couple of years. Apparently patient did have a colonoscopy last November. No fever. Did not try any other interventions prior to calling the ambulance. Past medical history most notable for history of chronic back pain, chronic neuropathy. Hypertension, type 2 diabetes, hemodialysis for last 12 years. He also reports prior C diff history. Prior partial colectomy for colon cancer. Prior cholecystectomy. ROS is notable for the GI symptoms only, otherwise reports things are stable times 12 systems with the exception of his pain which is worse since he has not had his medications. Related Data Home Medications ?Medication ?Instructions ?Recorded ?Confirmed amlodipine 10 mg tablet 10 mg PO DAILY 12/26/21 08/23/24 atorvastatin 40 mg tablet 40 mg PO DAILY 12/26/21 08/23/24 diclofenac sodium 1 % topical gel 2 g topical 12/26/21 ferric citrate 210 mg iron tablet 2 tab PO TID 12/26/21 02/11/23 (Auryxia) lidocaine-prilocaine 2.5 %-2.5 % 1 applic topical DAILY 12/26/21 08/23/24 topical cream metoprolol tartrate 25 mg tablet 25 mg PO Q12H 12/26/21 08/23/24 sennosides 8.6 mg tablet (Suyapa-ulysses) 8.6 mg PO DAILY PRN 12/26/21 08/23/24 sevelamer carbonate 800 mg tablet 2,400 mg PO TID 12/26/21 08/15/22 vit B,C-folic ac 800 mcg-zinc 12.5 1 tab PO DAILY 12/26/21 02/11/23 mg-selen-D3 2,000 unit-vit E tablet (RenaPlex-D) sucralfate 100 mg/mL oral 1 g PO BID 02/11/23 02/11/23 suspension (Carafate) tizanidine 2 mg tablet 2 mg PO QPM 02/11/23 08/23/24 dicyclomine 20 mg tablet 20 mg PO cramps 08/23/24 escitalopram oxalate 5 mg tablet 5 mg PO QAM 08/23/24 08/23/24 metoclopramide HCl 5 mg tablet 2.5 mg PO BID PRN abdominal pain 08/23/24 08/23/24 nortriptyline 10 mg capsule mg PO 08/23/24 oxycodone 10 mg tablet 15 mg PO QID 08/23/24 08/23/24 Previous Rx's ?Medication ?Instructions ?Recorded fidaxomicin 200 mg tablet 200 mg PO BID 10 days #20 tabs 10/21/22 naloxegol 12.5 mg tablet (Movantik) 12.5 mg PO QAM #5 tabs 12/02/22 Allergies Allergy/AdvReac Type Severity Reaction Status Date / Time lisinopril Allergy Severe angioedema Verified 08/23/24 01:49 Penicillins Allergy Unknown Verified 08/23/24 01:49 hydromorphone (From Dilaudid) AdvReac nausea/vomi Verified 08/23/24 01:49 ting [facility] Medical History Type 2 diabetes mellitus, without long-term current use of insulin ?E11.9 - Type 2 diabetes mellitus without complications (ICD-10) Hypertension ?I10 - Essential (primary) hypertension (ICD-10) Malignant neoplasm of sigmoid colon ?C18.7 - Malignant neoplasm of sigmoid colon (ICD-10) Spondylosis of lumbar region without myelopathy or radiculopathy ?M47.816 - Spondylosis without myelopathy or radiculopathy, lumbar region (ICD-10) Bilateral hip pain ?M25.551 - Pain in right hip (ICD-10) ?M25.552 - Pain in left hip (ICD-10) Spinal stenosis, lumbar region without neurogenic claudication ?M48.061 - Spinal stenosis, lumbar region without neurogenic claudication (ICD-10) Lumbar foraminal stenosis ?M48.061 - Spinal stenosis, lumbar region without neurogenic claudication (ICD-10) Chronic abdominal pain ?R10.9 - Unspecified abdominal pain (ICD-10) ?G89.29 - Other chronic pain (ICD-10) Chronic pain of both shoulders ?M25.511 - Pain in right shoulder (ICD-10) ?M25.512 - Pain in left shoulder (ICD-10) ?G89.29 - Other chronic pain (ICD-10) Peripheral polyneuropathy ?G62.9 - Polyneuropathy, unspecified (ICD-10) Chronic thoracic back pain ?M54.6 - Pain in thoracic spine (ICD-10) ?G89.29 - Other chronic pain (ICD-10) GERD (gastroesophageal reflux disease) ?K21.9 - Gastro-esophageal reflux disease without esophagitis (ICD-10) Chronic constipation ?K59.09 - Other constipation (ICD-10) Hematemesis ?K92.0 - Hematemesis (ICD-10) Anxiety and depression ?F41.9 - Anxiety disorder, unspecified (ICD-10) ?F32.A - Depression, unspecified (ICD-10) ESRD on hemodialysis ?N18.6 - End stage renal disease (ICD-10) ?Z99.2 - Dependence on renal dialysis (ICD-10) Secondary hyperparathyroidism (of renal origin) ?N25.81 - Secondary hyperparathyroidism of renal origin (ICD-10) Surgical History History of colectomy ?Z90.49 - Acquired absence of other specified parts of digestive tract (ICD-10) History of cholecystectomy ?Z90.49 - Acquired absence of other specified parts of digestive tract (ICD-10) Social History Smoking Status: Former smoker Do you use any of these nicotine containing products: None Second hand tobacco smoke exposure: No How often do you have a drink containing alcohol: never How often do you have six or more drinks on one occasion: Never AUDIT-C Alcohol total score: 0 Non-prescribed substance use: marijuana (any form) service: No Exam Const: Vital Signs, click to edit/add: Vital Signs - 24 hr 08/23/24 01:44 08/23/24 02:09 08/23/24 02:10 Temperature 98.0 F 98.1 F Pulse Rate 70 Pulse Rate [Right Pulse Oximeter] 72 Respiratory Rate 18 18 Blood Pressure 126/89 Blood Pressure [Ri ght Upper Arm] 127/90 H Pulse Oximetry 100 100 100 Oxygen Delivery Me thod Room Air Documenting provider has reviewed patient's vital signs: yes Common normals: alert General appearance: cooperative HENMT: Common normals: normocephalic and moist oral mucous membranes Head and scalp: normocephalic Mouth: oral and palatal mucosa normal Eye: Common normals: conjunctivae normal Conjunctiva: conjunctiva(e) normal Neck & C-Spine: General: normal visual inspection Resp: Common normals: normal respiratory effort and clear to auscultation bilaterally Effort & inspection: able to speak in complete sentences Auscultation: clear to auscultation bilaterally Cardio: Common normals: regular rate, regular rhythm, S1 normal heart sound, S2 normal heart sound and no murmurs Rate: regular rate Rhythm: regular rhythm Heart sounds: S1 normal and S2 normal GI: Common normals: Normal to inspection, nondistended, normoactive bowel sounds present : Common normals: no CVA tenderness Bladder/kidney exam: no CVA tenderness Back & Pelvis: Common normals: no CVA tenderness Extremity: Common normals: normal capillary refill Neuro: Common normals: moves all extremities Sensorium/orientation: alert Speech: speech normal Psych: Appearance: grossly normal Attitude: engaged Attention/concentration: attention grossly intact Insight: fair Judgement: fair Skin: Common normals: no rashes or lesions noted General skin exam: no rashes or lesions noted Course Course ED Course: 54-year-old male presenting with abdominal pain. Prior similar episodes reviewed. Differential diagnosis most likely flare-up of his gastroparesis but cannot exclude obstruction, infection, gastroenteritis, gallstone, pancreatitis, amongst others. I do think that there is also potentially an element of some narcotic withdrawal since he is on chronic opiates for his back that is worsening his abdominal pain. Pain has improved somewhat with the fentanyl given by EMS. Will give 4 mg of morphine, 4 of Zofran, obtain typical intra-abdominal labs and CT the abdomen and pelvis without contrast. Await findings. No indications for IV fluids. Reevaluation(s) Time of Reevaluation #1: 03:08 Reevaluation #1: Counseled patient on findings. Labs show a very mild elevation of lipase, 321 with upper limits of normal at 300. Patient has been as high as the mid 400s for us before that he does have periods of normal lipase as well. I do think that this episode is a combination of a flare up of his gastroparesis but also probably has a mild pancreatitis. He adamantly denies any alcohol use. Unfortunately, he is prone to these. Is not showing any signs of dehydration, his CRP is not elevated. He has not had any vomiting here for us. I do think that he could manage at home now that the antiemetics seem to have kicked in. Will give patient 20 of oral oxycodone, his baseline dose is 15 mg q.i.d.. Will bolus 500 of LR to help with hydration. Counseled patient to continue Zofran every 8 hours for the next 24 hours, frequent sips of clear liquids. Returning to the ED if symptoms are not improving in 48 hours. Alarm symptoms reviewed that would warrant sooner follow-up. He will keep his dialysis appointment tomorrow. Remainder of labs and imaging are stable and reassuring for patient. Vital Signs Vital signs: Initial Vital Signs Temperature 98.0 F 08/23/24 01:44 Temperature Source Temporal Artery Scan 08/23/24 01:44 Pulse Rate 72 08/23/24 01:44 Respiratory Rate 18 08/23/24 01:44 Blood Pressure 127/90 H 08/23/24 01:44 Blood Pressure Mean 102 08/23/24 01:44 Blood Pressure Position Sitting 08/23/24 01:44 Pulse Oximetry 100 08/23/24 01:44 Oxygen Delivery Method Room Air 08/23/24 01:44 Vital Signs Temperature 98.0 F 08/23/24 01:44 Pulse Rate 72 08/23/24 01:44 Respiratory Rate 18 08/23/24 01:44 Blood Pressure 127/90 H 08/23/24 01:44 Pulse Oximetry 100 08/23/24 01:44 Oxygen Delivery Method Room Air 08/23/24 01:44 Temperature 98.1 F 08/23/24 02:09 Pulse Rate 70 08/23/24 02:09 Respiratory Rate 18 08/23/24 02:09 Blood Pressure 126/89 08/23/24 02:09 Pulse Oximetry 100 08/23/24 02:10 Oxygen Delivery Method Room Air 08/23/24 01:44 Medications Administered Medications: Generic Name Dose Route Start Last Admin Trade Name Freq PRN Reason Stop Dose Admin Lactated Ringer's 500 mls @ 500 mls/hr 08/23/24 03:05 08/23/24 03:12 Lactated Ringers 500 Ml IV 08/23/24 04:04 500 mls/hr .Q1H ONE Administration Oxycodone HCl 20 mg 08/23/24 03:04 08/23/24 03:11 Oxycodone 5 Mg Tablet PO 08/23/24 03:05 20 mg ONCE ONE Administration Discontinued Medications Generic Name Dose Route Start Last Admin Trade Name Freq PRN Reason Stop Dose Admin Morphine Sulfate 4 mg 08/23/24 02:01 08/23/24 02:06 Morphine 4 Mg/Ml Inj IVP 08/23/24 02:02 4 mg ONCE ONE Administration Ondansetron HCl 4 mg 08/23/24 02:01 08/23/24 02:06 Ondansetron 2 Mg/Ml Inj IVP 08/23/24 02:02 4 mg ONCE ONE Administration Medical Decision Making Lab Data Lab results reviewed: Yes I reviewed the patient's lab results Lab results narrative: Very mild elevation in lipase only. Do suspect this is a mild pancreatitis. Labs: Lab Results 08/23/24 Range/Units 02:05 WBC 7.29 (4.50-11.00) K/uL RBC 3.41 L (4.30-5.90) m/uL Hgb 11.1 L (13.5-17.5) gm/dL Hct 34.9 L (37.0-53.0) % MCV 102 H (80-100) fL MCH 33 (26-34) pg MCHC 32 (32-36) gm/dL RDW Coeff of Mike 16.0 H (11.5-15.5) % Plt Count 180 (140-440) K/uL Neut % (Auto) 79.0 H (42.0-72.0) % Lymph % (Auto) 11.4 L (20-44) % [place] % (Auto) 7.0 (0.0-11.0) % Eos % (Auto) 1.8 (0.0-7.0) % Baso % (Auto) 0.4 (0.0-3.0) % Neut # (Auto) 5.80 (1.7-7.0) K/uL Lymph # (Auto) 0.80 L (0.90-2.90) K/uL [place] # (Auto) 0.50 (0.00-0.90) K/UL Eos # (Auto) 0.13 (0.00-0.50) K/uL Baso # (Auto) 0.03 (0.00-0.30) K/uL Abs Immat Gran (auto) 0.03 (0.00-0.30) K/uL Imm/Tot Granulo (auto) 0.4 % Sodium 131 L (135-149) mmol/L Potassium 5.1 (3.6-5.1) mmol/L Chloride 100 (96-114) mmol/L Carbon Dioxide 21 (20-32) mmol/L Anion Gap 10 (7-15) mEq/L BUN 19 (7-30) mg/dL Creatinine 7.9 H (0.5-1.5) mg/dL Estimated Creat Clear 9.37 Estimated GFR 8 ml/min Glucose 182 H (60-115) mg/dL Lactate 1.8 (0.5-1.9) mmol/L Calcium 9.3 (8.4-10.6) mg/dL Total Bilirubin 0.6 (0.1-1.5) mg/dL AST 48 H (12-35) U/L ALT 39 (4-50) U/L Alkaline Phosphatase 83 (40-150) U/L C-Reactive Protein < 0.5 L (0.5-1.0) mg/dL Total Protein 7.0 (6.0-8.3) g/dL Albumin 4.3 (3.3-5.0) g/dL Lipase 321 H (23-300) U/L Imaging Data CT scan - abdomen: Attestation: I have reviewed the pertinent imaging results. My impression: Normal CT. Radiologist's impression: IMPRESSION: No definite acute findings to explain the patient`s symptoms. Please note that all CT scans at this facility use dose modulation, iterative reconstruction, and/or weight-based dosing when appropriate to reduce radiation dose to as low as reasonably achievable. Dictated by Arthur Santos MD @ 08/23/2024 2:51:20 AM Discharge Plan Discharge Clinical Impression: Gastroparesis, Pancreatitis without necrosis or infection Patient Disposition: Home, Self-Care Condition: Stable Instructions: Pancreatitis (ED) Additional Instructions: Your CT looks fully reassuring. Your labs show very mild borderline inflammation of the pancreas but certainly no signs of a biliary obstruction, infection or anything too serious. I do think that these 2 things explain your symptoms. I am glad that the anti nausea medicine seem to have stopped your vomiting. Since things are mild, it does not require hospitalization at this time. I would like for you to go on a clear liquid diet, sipping on fluids very frequently. Continue your Zofran every 6-8 hours for the next 24 hours. This should help you hold down your pain medications better. Most of the time, these mild flare-ups will resolve within about 24-48 hours. If things are not starting to improve in 48 hours, I would recommend re-evaluation. Keep your appointment at dialysis tomorrow. Activity Level: No Restrictions Discharge Diet: Regular Prescriptions: No Action atorvastatin 40 mg tablet 40 mg PO DAILY Patient Comments: TAKE ONE TABLET BY MOUTH AT BEDTIME sennosides [Suyapa-ulysses] 8.6 mg tablet 8.6 mg PO DAILY PRN Patient Comments: TAKE 1 TABLET (8.6 MG) BY MOUTH 2 TIMES DAILY. lidocaine-prilocaine 2.5-2.5 % cream 1 applic topical DAILY Patient Comments: APPLY SMALL AMOUNT TO ACCESS SITE (AVF) 1 TO 2 HOURS BEFORE DIALYSIS. COVER WITH OCCLUSIVE DRESSING (SARAN WRAP) amlodipine 10 mg tablet 10 mg PO DAILY Patient Comments: TAKE ONE TABLET BY MOUTH ONCE DAILY metoprolol tartrate 25 mg tablet 25 mg PO Q12H Patient Comments: TAKE ONE TABLET BY MOUTH TWICE A DAY. ON DIALYSIS DAYS TAKE THIS AFTERWARDS sevelamer carbonate 800 mg tablet 2,400 mg PO TID Patient Comments: TAKE 4 TABLETS BY MOUTH THREE TIMES DAILY WITH MEALS AND 3 TABLETS TWICE DAILY WITH SNACKS diclofenac sodium 1 % gel 2 g TOPICAL Patient Comments: APPLY 2 G TOPICALLY TO AFFECTED AREA(S) 4 TIMES DAILY. Auryxia 210 mg iron tablet 2 tab PO TID Patient Comments: TAKE 2 TABLETS BY MOUTH THREE TIMES A DAY WITH MEALS AND 1 TABLET TWICE A DAY WITH SNACKS. SWALLOW WHOLE, DO NOT CHEW OR CRUSH MEDICATION RenaPlex-D 800 mcg-12.5 mg -2,000 unit tablet 1 tab PO DAILY Patient Comments: TAKE 1 TABLET BY MOUTH EVERY DAY WITH THE EVENING MEAL fidaxomicin 200 mg tablet 200 mg PO BID 10 Days Qty: 20 0RF Rx Instructions: May need PA. His C Diff is resistant to Flagyl and Vanco. Movantik 12.5 mg tablet 12.5 mg PO QAM Qty: 5 0RF Rx Instructions: must be taken on empty stomach; no food 1 hr after or 2-3 hrs before dose sucralfate [Carafate] 100 mg/mL suspension 1 g PO BID tizanidine 2 mg tablet 2 mg PO QPM metoclopramide HCl 5 mg tablet 2.5 mg PO BID PRN (Reason: abdominal pain) dicyclomine 20 mg tablet 20 mg PO escitalopram oxalate 5 mg tablet 5 mg PO QAM oxycodone 10 mg tablet 15 mg PO QID nortriptyline 10 mg capsule PO Follow Up/Referrals: Rosamaria Garcia PA-C [Primary Care Provider] - Stand Alone Forms: [employer] Info Instructions
--- OUTSIDE RECORDS SUMMARY | 2024-08-23 02:10 | XMS_ITS | Encounter Summary ---
Author Organization [place] Address [address] [facility] [place] [address] Care Team Providers Care Filter Helper Name Role Phone Kedar Tello MD Unavailable [phone] Rosamaria Garcia PA-C Primary Care Provider [phone] Reason for Referral * Diagnostic Imaging Ultrasound (Routine) - Pending Review Specialty Diagnoses / Procedures Referred By Alexis t Referred To Contact Radiology. Diagnoses Preop testing ESRD (end stage renal disease) on dialysis (H) Procedures US Upper Extremity Venous Mapping Bilateral Albert Goel MD [address] [place] [address] Phone: tel: fax: Referral ID Status Reason Start Date Expiration Date V isits Requested Visits Authorized [id number] Pending Review 07/18/2024 07/18/2025 1 1 Reason for Visit * Reason Onset Date Comments Referral 07/18/2024 Encounter Details Date Type Department Care Team (Late st Contact Info) Description 07/18/2024 Telephone [facility] [place] 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 Appt scheduled for patient by Cristobal CASTELLANOS at [facility]. * Telephone Encounter - Rubina Lui RN [...] mapping needed prior. BERTRAM Barton, RN, CV-, [facility] * Telephone Encounter - Rubina Lui RN - 07/18/2024 10:46 AM CDT ----- Message from Albert Goel sent at 07/13/2024 3:58 PM CDT ----- Regarding: Referral Referral by Dr. Reeves for creation of AV fistula. Can I please see him in the [facility] clinic withbilateral upper extremity vein mapping. Thank [...] disease documented in this encounter Care Teams Filter Helper Relationship Specialty Start Date End Date Rosamaria Garcia PA-C [address] [place] [address] PCP - General 12/15/23 [place] [address] [place] [address] Assigned Gastroenterology Provider 01/29/23 documented as of this encounter
--- OUTSIDE RECORDS SUMMARY | 2024-08-23 02:10 | XMS_ITS | Encounter Summary ---
Author Organization [place] Address [address] [facility] [place] [address] Care Team Providers Care Technical Support Engineer Name Role Phone Kedar Tello MD Unavailable Rosamaria Garcia PA-C Primary Care Provider [phone] Reason for Referral * Therapeutic Imaging/IR (Routine) - Closed Specialty Diagnoses / Procedures Referred By Contac t Referred To Contact Radiology. Diagnoses ESRD (end stage renal disease) (H) Procedures IR CVC Tunnel Placement > 5 Yrs of Age Thierry Vital MD [address] [place] [address] Phone: tel: fax: [facility] [address] [place] [address] Phone: tel: fax: Referral ID Status Reason Start Date Expiration Date Visits Re quested Visits Authorized [id number] Closed 07/13/2024 07/13/2025 1 1 Encounter Details Date Type Department Care Team (Latest Contact Info) Description 07/13/2024 1:54 PM CDT - 07/13/2024 4:05 PM CDT Hospital Encounter [facility] Imaging [address] [place] [address] Rosamaria Reeves, [facility] RADIOLOGIC [address] [address] ESRD (end stage renal disease) (H) Discharge [...] on file 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 The catheter falls out. [facility] Radiology Department: [facility] at [phone] If you are deaf or hard of [...] Take 1 tablet by mouth daily B xrhvgiv-T-mzdbm acid (NEPHROCAPS) 1 MG capsule Take 1 [...] CDT Pt c ESKD who dialyses at [facility] under the care of Dr. Vital ([facility]). It is a MWF unit [...] LAB - BEAKER POCT Final Result LABORATORY [facility] Acute Care Lab [address] Lab (1st floor, no room number) [place] [address], [facility] * IR CVC Tunnel Placement > 5 Yrs of Age (07/13/2024 3:36 PM CDT) Anatomical Region Laterality Modality Chest Radio Fluoroscop y, Radio Fluoroscopy 07/13/2024 3:36 PM CDT Impressions 07/16/2024 4:48 PM CDT IMPRESSION: Uneventful placement of a right external jugular vein 14.5 Uruguayan dual lumen 23 cm tunneled palindrome catheter, [...] blunt dissection. Under fluoroscopic guidance, a 14.5 Uruguayan dual lumen 23 cm cuffed catheter was [...] and blunt dissection.Under fluoroscopic guidance, a 14.5 Uruguayan dual lumen 23 cm cuffedcatheter was then [...] of a right external jugular vein 14.5 Uruguayan duallumen 23 cm tunneled palindrome catheter, as described using ultrasoundand fluoroscopic guidance. This catheter is indicated to be use forhemodialysis or pheresis. PLAN: Patient's potassium of 6.4 and his hemodialysis center is onlyTuesday, Tuesday and Tuesday. Patient will go to the ER and have inpatientdialysis today. us Thierry Vital MD [facility] IR ORDERABLES Final Resul t * (ABNORMAL) [...] - BLOOD ORDERAB LES Final Result LAB[facility]ATORY [facility] [address] [employer] Lab (1st floor, no room number) [place] [id number] [place] [address] * Glucose by meter (07/13/2024 2:44 PM CDT) [facility] GLUCOSE BY METER POCT 76 70 - 99 mg/dL 07/13/2024 2:51 PM CDT LABORATORY POC Blood, venous BLOOD SPECIMEN / Unknown 07/13/2024 2:44 PM CDT 07/13/2024 2:51 PM CDT us Rosamaria Reeves DO LAB - BEAKER POCT Final Result LABORATORY POC [facility] Acute Care Lab [address] Lab (1st floor, no room number) [place] [address], [facility] * (ABNORMAL) Glucose by meter (07/13/2024 2:12 PM CDT) GLUCOSE BY METER POCT 61(L) 70 - 99 mg/dL 07/13/2024 2:19 PM CDT [facility] LABORATORY POC Blood, Capillary BLOOD SPECIMEN / Unknown 07/13/2024 2:12 PM CDT 07/13/2024 2:19 PM CDT us Rosamaria Reeves DO LAB - BEAKER POCT Final Result [facility] LABORATORY POC [facility] Acute Care Lab [address] [facility] Lab (1st floor, no room number) [place] [address], [facility] documented in this encounter Visit Diagnoses [...] procedure documented in this encounter Care Teams Technical Support Engineer Relationship Specialty Start Date End Date Rosamaria Garcia PA-C [address] [place] [address] PCP - General 12/15/23 [place] [address] [place] [address] Assigned Gastroenterology Provider 01/29/23 documented as of this encounter
--- OUTSIDE RECORDS SUMMARY | 2024-08-23 02:10 | XMS_ITS | Encounter Summary ---
Author Organization [place] Address [address] [facility] [address] Care Team Providers Care Medart Operator Name Role Phone Kedar Tello MD Unavailable [phone] Rosamaria Garcia PA-C Primary Care Provider [phone] Reason for Visit * Reason Comments Vascular Access Problem Encounter Details Date Type Department Care Team (Late st Contact Info) Description 07/13/2024 4:14 PM CDT - 07/13/2024 9:[address] 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 * Hyperkalemia (Rwandan) * Dialysis: Your Vascular Access: Video (Rwandan) documented in this encounter Medications at Time of Discharge amLODIPine (NORVASC) 10 MG tabletIndications: ESRD (end stage renal disease) on dialysis (H),Hyperphosphate sharita,Essential hypertension Take 1 tablet (10 mg) by mouth daily 90 tablet 3 05/27/2017 AMLODIPINE BESYLATE PO Take 10 mg by mouth daily. B Complex Vitamins (VITAMIN B COMPLEX) tablet Take 1 tablet by mouth daily B qdaophx-D-umsgu acid (NEPHROCAPS) 1 MG capsule Take 1 [...] which he normally receives Tuesday dialysis in [place] through left upper extremity dialysis graft who was sent to the emergency department for emergent dialysis due to hyperkalemia. He states that he had his last full dialysis run 2 days ago, though yesterday he had some bleeding from his leftarm fistula which was sutured in the [place] emergency department, workup revealed that it was clotted. Ultimately he was sent from [place] clinic today to the interventional radiology suite here at [facility] where he had a new right neck [...] Complex Vitamins (VITAMIN B COMPLEX) tablet B polxsvq-U-kpvcy acid (NEPHROCAPS) 1 MG capsule calcium acetate (PHOSLO) 667 MG CAPS GABAPENTIN PO LORazepam (ATIVAN) 0.5 MG tablet METOPROLOL TARTRATE PO Omeprazole (PRILOSEC PO) oxyCODONE (ROXICODONE) 5 MG tablet PARICALCITOL PO sevelamer (RENVELA) 800 MG tablet Surgical History Past Surgical History: Procedure Laterality Date CRYOTHERAPY 02/09/2012 Procedure: CRYOTHERAPY;; Surgeon: Shayan Meadows MD; Location: [facility] CRYOTHERAPY 10/09/2012 Procedure: CRYOTHERAPY;; Surgeon: Shayan Meadows MD; Location: [facility] IR DIALYSIS FISTULOGRAM LEFT 07/27/2018 IR [...] C3F8 GAS; Surgeon: Rose Meadows MD; Location: [facility] VITRECTOMY PARSPLANA WITH 23 GAUGE SYSTEM 10/09/2012 Procedure: VITRECTOMY PARSPLANA WITH 23 GAUGE SYSTEM; LEFT PARSPLANA VITRECTOMY WITH 23 GAUGE SYSTEM, ENDOLASER, EPIRETINAL MEMBRANE REMOVAL ; Surgeon: Shayan Meadows MD; Location: [facility] wisdom teeth[ Physical Exam Patient Vitals [...] recurrent pain policy and after reviewing the BOOSTER ASSEMBLER. He will need close follow-up care through his primary care and nephrology, patient is aware of this. Discharged home in improved condition. Disposition Discharged Diagnosis ICD-10-CM 1. Hyperkalemia E87.5 2. End stage renal disease on dialysis (H) N18.6 Z99.2 3. Clotted dialysis access, initial encounter T82.49XA 07/13/2024 MD Aisha Alcaazr Jeffrey Alan, MD 07/13/245 * Marli Kitchen RN - 07/13/2024 4:14 PM CDT Bed: ED01 Expected date: Expected time: Means of arrival: Comments: IR pt * Jadyn Smith RN - 07/13/2024 1:35 PM CDT Patient Brought in by ambulance from dialysis clinic from [place]. Patient has a clotted dialysis port. VSS [...] RN) documented in this encounter Care Teams Medart Operator Relationship Specialty Start Date End Date Rosamaria Garcia PA-C [address] [place] [address] PCP - General 12/15/23 [place] [address] [place] [address] Assigned Gastroenterology Provider 01/29/23 documented as of this encounter
--- OUTSIDE RECORDS SUMMARY | 2024-08-23 02:10 | XMS_ITS | Encounter Summary ---
Author Organization [place] Address [address] 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
--- OUTSIDE RECORDS SUMMARY | 2024-08-23 02:10 | XMS_ITS | Clinical Summary ---
Author Organization [place] Address [address] [facility] [place] [address] Care Team Providers Care Registration Specialist Name Role Phone Kedar Tello MD Unavailable [phone] Rosamaria Garcia PA-C Primary Care Provider [phone] Allergies Active Allergy Reactions Criticality Noted Date [...] mg by mouth every morning Active B inqgozn-O-jiqyd acid (NEPHROCAPS) 1 MG capsule Take 1 [...] Type Department Care Team Description 07/18/2024 Telephone [facility] [place] [address] [place] [phone] Albert Goel MD Referral 07/13/2024 4:14 PM CDT - 07/13/2024 9:16 PM CDT Emergency [facility] Emergency Dept [address] [place] [address] Rosamaria Reeves, Corona Pearson MD Hyperkalemia; End stage renal disease on dialysis (H); Clotted dialysis access, initial encounter; Chronic pain disorder; Continuous use of opioids Discharge Disposition: Home or Self Care 07/13/2024 1:54 PM CDT - 07/13/2024 4:05 PM CDT Hospital Encounter [facility] Imaging [address] [place] [address] Rosamaria Reeves DO ESRD (end stage renal disease) (H) Discharge Disposition: Home or Self Care 07/13/2024 Travel 06/18/[address] 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 Under fluoroscopic guidance, a 14.5 Guatemalan dual lumen 23 cm cuffed catheter was [...] and blunt dissection.Under fluoroscopic guidance, a 14.5 Guatemalan dual lumen 23 cm cuffedcatheter was then [...] of a right external jugular vein 14.5 Guatemalan duallumen 23 cm tunneled palindrome catheter, as described using ultrasoundand fluoroscopic guidance. This catheter is indicated to be use forhemodialysis or pheresis. PLAN: Patient's potassium of 6.4 and his hemodialysis center is onlyTuesday, Tuesday and Tuesday. Patient will go to the ER and have inpatientdialysis today. us Thierry Vital MD [facility] IR ORDERABLES Final Resul t * (ABNORMAL) [...] BLOOD ORDERAB LES Final Result [facility] LABORATORY [facility] Acute Care Lab [address] [facility] Lab (1st floor, no room number) [place] [address], [facility] from Last 3 Months Insurance [employer] [place] [employer] MEDICARE ADVANTAGE [employer] [place] [place] [employer] MEDICARE ADVANTAGE Care Teams Registration Specialist Relationship Specialty Start Date End Date Rosamaria Garcia PA-C [address] [place] [address] PCP - General 12/15/23 [place] [address] [address], [place] [address] Assigned Gastroenterology Provider 01/29/23
[2024-08-23 02:11] LABS: Lactate* 1.8 mmol/L (0.5-1.9)
[2024-08-23 02:13] LABS: Basophils Absolute Auto 0.03 K/uL (0.00-0.30); Basophils Percent Auto 0.4 % (0.0-3.0); Eosinophils Absolute Auto 0.13 K/uL (0.00-0.50); Eosinophils Percent Auto 1.8 % (0.0-7.0); Hematocrit 34.9 % (37.0-53.0); Hemoglobin* 11.1 gm/dL (13.5-17.5); Immature Granulocytes Abs Auto 0.03 K/uL (0.00-0.30); Immature Granulocytes Pct Auto 0.4 %; Lymphocytes Percent Auto 11.4 % (20-44); Mean Corpuscular HGB Conc 32 gm/dL (32-36); Mean Corpuscular Hemoglobin 33 pg (26-34); Mean Corpuscular Volume 102 fL (80-100); Platelet Count* 180 K/uL (140-440); Red Blood Count 3.41 m/uL (4.30-5.90); White Blood Count* 7.29 K/uL (4.50-11.00)
[2024-08-23 02:14] LABS: Slide Review Reflex No
[2024-08-23 02:28] LABS: Albumin* 4.3 g/dL (3.3-5.0); Chloride* 100 mmol/L (96-114); Potassium* 5.1 mmol/L (3.6-5.1); Sodium* 131 mmol/L (135-149)
[2024-08-23 02:30] LABS: Alanine Aminotransferase* 39 U/L (4-50); Aspartate Amino Transferase* 48 U/L (12-35); Blood Urea Nitrogen* 19 mg/dL (7-30); Creatinine* 7.9 mg/dL (0.5-1.5); Est. Creatinine Clearance* 9.37; Estimated Glomerular Filt Rate 8 ml/min
[2024-08-23 02:31] LABS: Alkaline Phosphatase* 83 U/L (40-150); Anion Gap 10 mEq/L (7-15); Bilirubin Total* 0.6 mg/dL (0.1-1.5); Calcium* 9.3 mg/dL (8.4-10.6); Carbon Dioxide* 21 mmol/L (20-32); Glucose* 182 mg/dL (60-115); Lipase* 321 U/L (23-300)
[2024-08-23 02:35] LABS: C Reactive Protein* < 0.5 mg/dL (0.5-1.0)
[2024-08-23] MEDS: OXYCODONE 5 MG TABLET 20 MG PO (03:11)
[2024-08-23] MEDS: LACTATED RINGERS 500 ML 500 ML IV (03:12)
== END 2024-08-23 03:52 | disposition home or self-care (01) ==
PROVIDERS: Emergency Provider Family Medicine; PCP Physician Assistant
DX: K85.90 Acute pancreatitis without necrosis or infection, unspecified (principal); K31.84 Gastroparesis
CPT/HCPCS: 36415; 74176; 80053; 83605; 83690; 85025; 86140; 94761; 96374; 96375; 99284; A9270; J2270; J2405; J7120

== ENCOUNTER 2024-09-27 16:21 | Emergency (ER) | payer MEDICARE, OTHER, SELFPAY ==
[2024-09-27] VITALS (16 sets, daily range): BP systolic 119–148; BP diastolic 78–96; PULSE 59–64; RESP 11–17; TEMP 36.1; O2SAT 99–100; BMI 22.3
--- OUTSIDE RECORDS SUMMARY | 2024-09-27 16:24 | XMS_ITS | Encounter Summary ---
Author Organization [place] Address [address] [facility] [place] [address] Care Team Providers Care Physical Therapy Aide Name Role Phone Coutrney Guardado MD Primary Care Provider [phone] Gavin Lombardo Primary Care [facility] Kedar Dang MD Unavailable [phone] Rosamaria Garcia PA-C Primary Care Provider [phone] Encounter Details Date Type Department Care Team (Late st Contact Info) Description 05/24/2018 External Order Results [facility] [address] [place] [address] Outside, Provider Social History Tobacco Use Types Packs/Day Years Used Date Smoking Tobacco: Every Day Cigarettes 0.5 27 Smokeless Tobacco: Never Alcohol Use Standard Drinks/Week Comments Yes 0 (1 standard drink = 0.6 oz pur e alcohol) occ. 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 Gender Identity Not on file Sexual Orientation Not on file documented as of this encounter Plan of Treatment Not on file documented as of this encounter Visit Diagnoses Not on filedocumented in this encounter Care Teams Physical Therapy Aide Relationship Specialty Start Date End Date Courtney Guardado MD PCP - General 03/09/12 07/30/20 Gavin Lombardo PA PCP - General Family Practice 07/31/20 12/14/23 Rosamaria Garcia PA-C [address] [place] [id number] PCP - General 12/15/23 [place] [address] [place] [address] Assigned Gastroenterology Provider 01/29/23 08/21/24 documented as of this encounter
--- OUTSIDE RECORDS SUMMARY | 2024-09-27 16:24 | XMS_ITS | Encounter Summary ---
Author Organization [place] Address [address] [facility] [place] [address] Care Team Providers Care Roof Panel Hanger Name Role Phone Courtney Guardado MD Primary Care Provider [phone] Gavin Lombardo Primary Care Pro[facility] Kedar Dang MD Unavailable Rosamaria Garcia PA-C Primary Care Provider [phone] Reason for Visit * Reason Onset Date Comments Appointment 07/19/2017 called and left patient message related to missed appointment for today Encounter Details Date Type Department Care Team (Late st Contact Info) Description 07/19/2017 Telephone [facility] [address] [place] [address] Carla Zambrano, JASMIN Appointment (called [...] on file 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
--- OUTSIDE RECORDS SUMMARY | 2024-09-27 16:24 | XMS_ITS | Continuity of Care Document ---
Author Organization [facility] Address [address] [facility] [address] [place] [address] Insurance Providers Payer Plan Claims Address Claims Phone Policy Number Group Number Relation Employer Guarantor Name Guarantor Guarantor Address Guarantor Phone Medic are [id number] Miguel Angel FARRAR [address] [place] [address] Medic a Choic e Cherelle [id number] Miguel Angel FARRAR [address] [place] [address] MEDIC ARE ATTN CLAIMS, [address], [place] [address] tel:[phone] Miguel Angel FARRAR [address] [place] [address] Problems Unknown Problems Results No Results Allergies, adverse reactions, alerts No known allergies and adverse reactions Medications No administered medications reported Vital Signs No vital signs reported Social History No smoking Hx information available Encounters Type CPT Code Date Location Provider Indication s Telephone assessment and management service provided by a qualified nonphysician [id number] 05/04/2023 03:08 PM [facility] [address] [place] [address] [address] Reason: Patient is scheduled for a visit on 05/17/23 with Anna Galvan at [facility], in person for a 5D visit. - Status: Completed Telephone assessment and management service provided by a qualified nonphysician [id number] 03/03/2023 08:17 PM [facility] [address] [facility] [address] Reason: Retrieving Records f or Coordination of Care (ROM) and care planning of [facility] patient. - Status: Completed
--- OUTSIDE RECORDS SUMMARY | 2024-09-27 16:24 | XMS_ITS | Clinical Summary ---
Author Organization [facility] Address [facility] [place] [address] Care Team Providers Care Wire Mill Rover Name Role Phone Radha Baires SNACK BAR COOK Unavailable Unavailable Rosamaria Dunn Unavailable Unavailable Alison Otto PACKAGING DESIGN ENGINEER Unavailable [phone] Christopher Collins MBBS Unavailable [phone] Nik Flores WOUND CARE COORDINATOR Unavailable [phone] Rosamaria Garcia Primary Care Provider [phone] Allergies Active Allergy Reactions Criticality Noted Date [...] by mouth once daily if needed for Constipation . Active aspirin (ECOTRIN) 81 mg enteric coated [...] mouth 2 times daily if needed for Constipation . 60 Tablet 3 03/31/20 23 Active aluminum [...] mouth every 8 hours if needed for Nausea/Vomit ing. 20 Tablet 4 9:13 AM CDT 10/27/19 [...] tongue every 8 hours if needed for Nausea/Vomit ing. 30 Tablet 2 03/01/20 24 Active dicyclomine (BENTYL) 20 mg tabletIndications :Irritable bowel syndrome with both constipation and diarrhea Take 1 tablet up to 2 times a day for IBS cramping/georgette n 60 Tablet 2 05/31/19 25 Active diclofenac topical (VOLTAREN) 1 % gelIndications:Bi lateral hand pain Apply 2 g up to bid for hand pain 450 g 2 06/04/19 25 Active atorvastatin (LIPITOR) 40 mg tabletIndications :Other hyperlipidemia Take 1 Tablet (40 mg) by mouth once daily with evening meal. 90 Tablet 3 07/13/19 25 Active tiZANidine 2 mg tabletIndications :Muscle spasm TAKE 1 TABLET UP TO 2 TIMES DAILY IF NEEDED FOR MUSCLE SPASM 60 Tablet 3 07/25/19 25 Active metoclopramide 5 mg tabletIndications :Gastroparesis TAKE 1/2 TABLET (2.5MG) BY MOUTH UP TO TWICE A DAY BEFORE MEALS IF NEEDED FOR SEVERE ABDOMINAL PAIN/NAUSEA/ VOMITING 30 Tablet 3 08/31/19 25 Active durable medical equipment (DME)Indications: ESRD on hemodialysis (HC),Spinal stenosis of lumbar region without neurogenic claudication,Lumb ar foraminal stenosis,Peripher al polyneuropathy Electric Bike to Commute 1 Each 09/21/19 25 Active oxyCODONE 10 mg tabletIndications :Controlled substance agreement signed,Lumbar foraminal stenosis,Chronic pain of both shoulders,Chronic thoracic back pain, unspecified back pain laterality Take 1.5 Tablets (15 mg) by mouth four times daily. 180 Tablet 09/29/19 25 Active metoclopramide (REGLAN) 5 mg tabletIndications :Gastroparesis Take 2.5 mg up to 2 times a day before meals if needed for severe abdominal pain/nausea/ vomiting 30 Tablet 1 03/01/20 24 2024 Discontinued oxyCODONE 10 mg tabletIndications :Controlled substance agreement signed,Lumbar foraminal stenosis,Chronic pain of both shoulders,Chronic thoracic back pain, unspecified back pain laterality Take 1.5 Tablets (15 mg) by mouth four times daily. 180 Tablet 08/31/19 25 2024 Discontinued(R eorder (E-cancel not sent)) Active Problems Problem Noted [...] & Plan: Bilateral great toe Stable Encouraged chyron operator consult and patient agree Type 2 diabetes [...] Assessment & Plan: ESRD Stable Dialysis at: [facility] on: MWF via fistula Diet: [...] M, W, F with Dr. Brown in [place]. Dependence on renal dialysis 06/08/2011 08/23/2019 Overview (09/21/2017): Overview: Overview: Dialysis M, W, F with Dr. Brown in [place]. ACP (advance care planning) 03/14/2011 05/11/2023 Overview (03/14/2011): Patient has identified Health Care Agent(s): Patient verbally identifies his significant other as health care decision maker however, she does not have a phone number at present. To contact Patient's family/SO contact can be made with Abhay Tovar (brother in law) [phone] and Thomas Carty [phone] Friend Patient has Advance Care Plan Documents [...] Encounters Date Type Department Care Team Description 09/25/2024 Refill [facility] [address] [place] [address] Rosamaria Garcia PA Refill Request (oxyCODONE 10 mg tablet/) 09/20/2024 Telephone [facility] [address] [place] [address] Rosamaria Garcia PA Questions 09/13/2024 Nurse Triage [facility] [address] [place] [address] Rosamaria Garcia PA High Blood Pressure 09/07/2024 Telephone [facility] [address] [place] [address] Rosamaria Garcia PA Medication Management (Blood pressure meds) 09/06/2024 Telephone [facility] Kidney Transplant Providers [address] [place] [phone] Jovanna Sands, pasta maker Eval (Follow up) 09/04/2024 9:50 AM CDT Office Visit [facility] [address] [place] [address] Rosamaria Garcia PA ER Follow up (08/23 abdominal pain) 09/04/2024 Travel 08/28/2024 Refill [facility] [address] [place] [address] Rosamaria Garcia PA Refill Request (Metoclopramide) 08/28/2024 Refill [facility] [address] [place] [address] Rosamaria Garcia PA Refill Request (Oxycodone ) 08/23/2024 Orders Only [facility] Scanner 1 scan: (1-Ord) FORBES, CT ABDOMEN PELVIS WO CON, 08/23/2024 08/15/2024 Telephone [facility] Kidney Transplant Providers [address] [place] [phone] Jovanna Sands, pasta maker Eval 07/31/2024 Refill [facility] [address] [place] [address] Rosamaria Garcia PA Refill Request (oxyCODONE 10 mg tablet ) 07/31/2024 Telephone [facility] [address] [place] [address] Dary Longoria MD Results 07/26/2024 10:30 AM CDT Procedure Only [facility] [address] [facility] [address] [place] [address] Dary Longoria MD Procedure 07/26/2024 Travel 07/24/2024 Refill [facility] [address] [place] [address] Rosamaria Garcia PA Refill Request (Tizanidine) 07/11/2024 Telephone [facility] [address] [place] [address] Rosamaria Garcia PA Medication Management (atorvastatin (LIPITOR) 40 mg tablet) 07/09/2024 Patient Outreach [facility] [address] [place] [address] Sobeida Prasad, RN Student Primary RN Care Management; Hospital F/U (Lace=20) 07/05/2024 3:45 PM CABLE SPLICER - 07/05/2024 4:40 PM CABLE SPLICER Surgery [address] [address] Juan Francisco Don MD CYSTOSCOPY 07/05/2024 3:18 PM CABLE SPLICER Anesthesia Event [address] [address] Mejia Carrera MD 07/05/2024 1:28 PM CABLE SPLICER - 07/06/2024 1:31 PM CABLE SPLICER Hospital Encounter [address] [address] Juan Francisco Don MD Vanderloo, Matthew Robert, MD Microhematuria (Primary Dx); ESRD on hemodialysis (HC) Discharge Disposition: Home Self Care 07/05/2024 Travel 07/03/2024 3:35 PM CABLE SPLICER Office Visit [facility] [address] [place] [address] Olivier Phillips MD Preoperative Exam (Cystoscopy 07/05) 07/03/2024 11:50 AM CABLE SPLICER Office Visit [facility] [address] [place] [address] Jasmin Pugh PA Derm Problem (lesions) 07/03/2024 Travel 06/29/2024 Refill [facility] [address] [place] [address] Rosamaria Garcia PA Refill Request (oxyCODONE 10 mg tablet) from Last 3 Months Immunizations Immunization Administration [...] on file Legal Sex Male 5:23 AM CABLE SPLICER Gender Identity Not on file Sexual Orientation Not on file Occupation Industry Job Start Date Job End Date unempolyed Not on file Not on file Not on file Obstetrics History Last Filed Vital Signs Vital Sign Reading Time Taken Comments Blood Pressure 184/96 09/04/2024 9:40 AM CDT Pulse 77 09/04/2024 9:40 AM CDT Temperature 36.3 C (97.4 F) 07/06/2024 12:00 AM CABLE SPLICER Respiratory Rate 18 07/06/2024 4:00 AM CABLE SPLICER Oxygen Saturation 100% 09/04/2024 9:40 AM CDT Inhaled Oxygen Concentration - - Weight 61.7 kg (136 lb) 09/04/2024 9:40 AM CDT Height 166.4 cm (5' 5.5) 07/05/2024 1:39 PM CABLE SPLICER Body Mass Index 22.29 07/05/2024 1:39 PM CABLE SPLICER Plan of Treatment Upcoming Encounters Date Type Department Care Team (Latest Contact Info) Description 11/13/2024 6:20 AM CDT Hospital Encounter [facility] [address] [place] [address] [place] [address] [place] [id number] 11/13/2024 7:20 AM CDT - 11/13/2024 8:[address] [facility] [address] [place] [address] Hannah Armstrong MD [address] [address] ESOPHAGOGASTRODUODENOSCOPY Scheduled Procedures Name Priority Associated Diagnoses Date/Ti me ESOPHAGOGASTRODUODENOSCOPY Tier 2 colon polyps, nausea vomiting 11/13/2024 7:20 AM CDT COLONOSCOPY Tier 2 colon polyps, nausea vomiting 11/13/2024 7:20 AM CDT Health Maintenance Due Date Last Done Comments Zoster (shingles) series for age 50+ (1 of 2) 2021 Tetanus booster 10/27/2021 10/28/2011 Hepatitis B series for 19+ ( 4 of 4 - Risk Dialysis Recombivax 3-dose series) 09/17/2022 09/17/2021, 04/03/2021, 07/11/2020 COVID-19 vaccine series (3 - season) 2024 06/23/2020, 05/30/2020 Pneumococcal series [...] Card MD Medical Devices Implanted Type Area Forklift Driver Device Identifier Shelf Expiration Date Model / Serial / Lot Graft Vasc 8mm 40cm Propaten Thin Wall - [id number] Implanted:Qty: 1 on 04/10/2015 by Ash Zambrano MD at [facility] Left: Arm [employer] 10/23/2018 [id number] # / / Power Port Isp Mri 6fr [id number] - Stan Only - [id number] Implanted:Qty: 1 on 01/27/2017 by Kiet Hernandez DO at [facility] N/A: Chest [employer] 03/01/2018 [id number] / / [id number] Description:PowerPort isp M. R.I. Implantable Port Sys Ancr Sut 4.75mm Biocomposite - [id number] Implanted:Qty: 1 on 10/27/2023 by Milind Arroyo MD at [facility] Right: Shoulder [employer] 06/30/2027 [id number] CSL / / [id number] Procedures Procedure Name Priority Date/Time Associated Diagnosis Comments AMB CONSULT TO GASTROENTEROLOGY Routine 09/18/2024 7:38 PM CDT Gastroparesis SCAN-CT INTERPRETATION 12:00 AM CDT PATH TISSUE EXAM Routine 07/26/2024 10:30 AM CDT Epidermoid cyst GLUCOSE METER Timed 07/06/2024 10:52 AM CABLE SPLICER GLUCOSE METER Timed 07/06/2024 6:59 AM CABLE SPLICER HEMOGLOBIN A1C MONITORING (POCT) Early AM 07/06/2024 5:19 AM CABLE SPLICER GLUCOSE METER Timed 07/05/2024 11:51 PM CABLE SPLICER GLUCOSE METER Timed 07/05/2024 11:01 PM CABLE SPLICER GLUCOSE METER Timed 07/05/2024 9:47 PM CABLE SPLICER POTASSIUM STAT 07/05/2024 9:26 PM CABLE SPLICER GLUCOSE METER Timed 07/05/2024 8:47 PM CABLE SPLICER POTASSIUM Timed 07/05/2024 8:12 PM CABLE SPLICER EKG 12 LEAD STAT 07/05/2024 8:06 PM CABLE SPLICER GLUCOSE METER Timed 07/05/2024 7:42 PM CABLE SPLICER GLUCOSE METER Timed 07/05/2024 6:41 PM CABLE SPLICER CBC WITH AUTO DIFFERENTIAL STAT 07/05/2024 6:19 PM CABLE SPLICER HEPATIC FUNCTION PANEL STAT 6:19 PM CABLE SPLICER CBC WITH AUTO DIFFERENTIAL STAT 07/05/2024 6:19 PM CABLE SPLICER BASIC METABOLIC PANEL STAT 07/05/2024 6:19 PM CABLE SPLICER GLUCOSE METER Timed 07/05/2024 5:51 PM CABLE SPLICER POTASSIUM STAT 07/05/2024 5:29 PM CABLE SPLICER GLUCOSE METER Timed 07/05/2024 5:00 PM CABLE SPLICER GLUCOSE METER Timed 07/05/2024 4:37 PM CABLE SPLICER SUPRAGLOTTIC-LMA Routine 07/05/2024 3:33 PM CABLE SPLICER CYSTOSCOPY Tier 2 07/05/2024 3:07 PM CABLE SPLICER Hx bladder Cancer Case Notes BOP PT DOES NOT HAVE SOMEONE to stay with him for 24 hours post surgery GLUCOSE METER Timed 07/05/2024 2:59 PM CABLE SPLICER POTASSIUM KOJO 07/05/2024 2:48 PM CABLE SPLICER GLUCOSE METER Timed 07/05/2024 2:31 PM CABLE SPLICER SCAN-CARDIAC STRIP 07/05/2024 12:00 AM CABLE SPLICER SCAN-CARDIAC STRIP 07/05/2024 12:00 AM CABLE SPLICER SCAN-CARDIAC STRIP 07/05/2024 12:00 AM CABLE SPLICER CBC WITH AUTO DIFFERENTIAL Routine 07/03/2024 4:50 PM CABLE SPLICER Preoperative general physical examination LIPID PANEL W REFLEX MEASURED LDL Routine 04/17/2024 10:16 AM CABLE SPLICER Type 2 diabetes mellitus with chronic kidney [...] Recently Relevant to Health Maintenance Results * SCAN-CT INTERPRETATION (08/23/2024 12:00 AM CDT) Anatomical Region Laterality Modality Other us Scanner OTHER Final Result * PATH TISSUE EXAM (07/26/2024 10:30 AM CDT) Case Report Pathology Report Case: [id number] Authorizing Provider: Dary Longoria, Collected: 07/26/2024 1030 MD Ordering Location: [facility] Received: 07/26/2024 1613 Clinic Pathologist: María Senior MD Specimen: Skin, Left posterior ear 07/31/2024 9:41 AM CDT [facility] Final Diagnosis SKIN, LEFT POSTERIOR EAR, EXCISION: 1. Epidermal inclusion cyst 2. Negative for malignancy 07/31/2024 9:[address] [facility] at 0941 CDT Clinical Information Cyst rule out other 07/31/2024 9:[address] [facility] Gross Description A) Received in formalin, labeled with the patient's name and L posterior ear, is a 1.6 x 1.2 x 1 cm cystic structure which is partially surfaced by wood skin. Specimen is inked blue and sectioned revealing a cystic cavity filled with wood-white material. [employer] sections are submitted 1 cassette. JPW 07/27/2024 07/31/2024 9:[address] [facility] Microscopic Description The final diagnosis is based on microscopic examination of appropriate sections of all specimens. There is a cystic collection of non-atypical keratinizing squamous epithelium within the dermis. The presence of blue ink is confirmed on tissue sections. 07/31/2024 9:[address] [facility] Additional Information Interpreted at [facility] [facility], Central Laboratory - [address] [place] [address] [facility] [[email or web address]] [address], [place] [address] 07/31/2024 9:[address] [facility] Other SPECIMEN FROM SKIN / Unknown Non-Blood / Unknown 07/26/2024 10:30 AM CDT 07/26/2024 4:13 PM CDT Dary Longoria MD PATHOLOGY/CYTOLOGY Fi nal Result Performing Organization Address City/[facility]/ZIP Co de Phone Number [facility]CENTRAL LABORATORY [address] [place] [address], * (ABNORMAL) GLUCOSE METER (07/06/2024 10:52 AM CABLE SPLICER) Only the most recent of13 resultswithin the time period is included. GLUCOSE METER 111(H) 65 - 100 mg/dL 07/06/2024 3:37 PM CABLE SPLICER [facility] Blood BLOOD SPECIMEN / Unknown 07/06/2024 10:52 AM CABLE SPLICER 07/06/2024 3:37 PM CABLE SPLICER Gavin Mcdonald MD CHEMISTRY Yamilet l Result Performing Organization Address City/[facility] Co de Phone Number [place] [address] [place] [address] * Hemoglobin A1C (07/06/2024 5:19 AM CABLE SPLICER) HEMOGLOBIN A1C MONITORING (POCT) 5.1 <=6.4 % 07/06/2024 7:51 AM CABLE SPLICER [facility] Blood BLOOD SPECIMEN / Unknown Venipuncture / Unknown 07/06/2024 5:19 AM CABLE SPLICER 07/06/2024 5:40 AM CABLE SPLICER Narrative [facility] - 07/06/2024 7:51 AM CABLE SPLICER (<=6.9%) Indicates good control (7.0% to 7.9%) Indicates fair control (>=8.0%) Indicates poor control NOTE: These thresholds are guidelines and individual targets may vary. Falsely low levels may be seen with: Recent Transfusion, Recent Significant Blood Loss, Hemolytic Diseases, or Falsely elevated levels may be seen with: Untreated Anemias, Splenectomy Gavin Mcdonald MD CHEMISTRY Yamilet l Result Performing Organization Address City/[facility]/ZIP Co de Phone Number [address] [address] * Potassium (07/05/2024 9:26 PM CABLE SPLICER) Only the most recent of4 resultswithin the time period is included. [facility] POTASSIUM 5.1 3.5 - 5.1 mmol/L 07/05/2024 9:50 PM CABLE SPLICER [facility] Blood BLOOD SPECIMEN / Unknown Butterfly / Unknown 07/05/2024 9:26 PM CABLE SPLICER 07/05/2024 9:31 PM CABLE SPLICER Gavin Mcdonald MD CHEMISTRY Yamilet l Result Performing Organization Address [facility] de Phone Number [address] [address] * 12 Lead EKG (07/05/2024 8:06 PM CABLE SPLICER) [facility] Interpretation Sinus rhythm with 1st degree A-V [...] NOW QTc 455 ms BEYOND NOW P [place] 74 degrees BEYOND NOW R [place] -57 degrees BEYOND NOW T [place] 54 degrees BEYOND NOW 07/05/2024 8:06 PM CABLE SPLICER 07/11/2024 7:40 AM CDT us Gavin Mcdonald MD EKG ORD Yamilet l Result Performing Organization Address City/[facility]/ZIP Co de Phone Number BEYOND NOW [place], [place] * (ABNORMAL) CBC WITH AUTO DIFFERENTIAL (07/05/2024 6:19 PM CABLE SPLICER) [facility] WHITE BLOOD COUNT 9.2 4.5 - 11.0 thou/cu mm 07/05/2024 6:23 PM CABLE SPLICER [facility] RED BLOOD COUNT 3.39(L) 4.30 - 5.90 mil/cu mm 07/05/2024 6:23 PM [facility] HEMOGLOBIN 10.7(L) 13.5 - 17.5 g/dL 07/05/2024 6:23 PM [facility] HEMATOCRIT 33.7(L) 37.0 - 53.0 % 07/05/2024 6:23 PM [facility] MCV 99 80 - 100 fL 07/05/2024 6:23 PM [facility] MCH 31.6 26.0 - 34.0 pg 07/05/2024 6:23 PM [facility] MCHC 31.8(L) 32.0 - 36.0 g/dL 07/05/2024 6:23 PM [facility] RDW 16.3(H) 11.5 - 15.5 % 07/05/2024 6:23 PM [facility] PLATELET COUNT 167 140 - 440 thou/cu mm 07/05/2024 6:23 PM [facility] MPV 9.0 6.5 - 11.0 fL 07/05/2024 6:23 PM [facility] NRBC 0.0 % 07/05/2024 6:23 PM [facility] ABS NRBC 0.0 thou /cu mm 07/05/2024 6:23 PM [facility] % NEUT 71.3 % 07/05/2024 6:23 PM [facility] % LYMPH 18.6 % 07/05/2024 6:23 PM [facility] % MONO 7.3 % 07/05/2024 6:23 PM [facility] % EOS 2.1 % 07/05/2024 6:23 PM [facility] % BASO 0.4 % 07/05/2024 6:23 PM [facility] % IMMATURE GRAN (METAS,MYELOS,OR OS) 0.3 % 07/05/2024 6:23 PM [facility] ABSOLUTE NEUTROPHILS 6.5 1.7 - 7.0 thou/cu mm 07/05/2024 6:23 PM [facility] ABSOLUTE LYMPHOCYTES 1.7 0.9 - 2.9 thou/cu mm 07/05/2024 6:23 PM [facility] ABSOLUTE MONOCYTES 0.7 <0.9 thou/cu mm 07/05/2024 6:23 PM CABLE SPLICER [facility] ABSOLUTE EOSINOPHILS 0.2 <0.5 thou/cu mm 07/05/2024 6:23 PM CABLE SPLICER [facility] ABSOLUTE BASOPHILS 0.0 <0.3 thou/cu mm 07/05/2024 6:23 PM CABLE SPLICER [facility] ABSOLUTE IMMATURE GRANULOCYTES(MET ,MYELOS,PROS) 0.0 <0.3 thou/cu mm 07/05/2024 6:23 PM CABLE SPLICER [facility] Blood BLOOD SPECIMEN / Unknown Butterfly / Unknown 07/05/2024 6:19 PM CABLE SPLICER 07/05/2024 6:21 PM CABLE SPLICER us Gavin Mcdonald MD HEMATOLOGY Yamilet l Result [facility] [address] [place] [address] * (ABNORMAL) Hepatic Function Panel (07/05/2024 6:19 PM CABLE SPLICER) ALBUMIN 3.8(L) 4.0 - 4.9 g/dL 07/05/2024 6:43 PM [facility] PROTEIN,TOTAL 6.4 6.0 - 8.0 g/dL 07/05/2024 6:43 PM [facility] BILIRUBIN,TOTAL 0.3 0.0 - 1.2 mg/dL 07/05/2024 6:43 PM [facility] BILIRUBIN,DIRECT 0.1 0.0 - 0.2 mg/dL 07/05/2024 6:43 PM [facility] BILIRUBIN,INDIRE CT 0.2 0.2 - 0.8 mg/dL 07/05/2024 6:43 PM [facility] ALK PHOSPHATASE 75 40 - 129 IU/L 07/05/2024 6:43 PM [facility] ALT (SGPT) 21 10 - 50 IU/L 07/05/2024 6:43 PM [facility] AST (SGOT) 21 10 - 50 IU/L 07/05/2024 6:43 PM CABLE SPLICER [facility] Blood BLOOD SPECIMEN / Unknown Butterfly / Unknown 07/05/2024 6:19 PM CABLE SPLICER 07/05/2024 6:21 PM CABLE SPLICER us Gavin Mcdonald MD CHEMISTRY Yamilet l Result [facility] [address] [place] [address] * (ABNORMAL) Basic Metabolic Panel (07/05/2024 6:19 PM CABLE SPLICER) SODIUM 134(L) 136 - 145 mmol/L 07/05/2024 6:52 PM [facility] POTASSIUM 6.1(HH) 3.5 - 5.1 mmol/L 07/05/2024 6:52 PM [facility] CHLORIDE 101 98 - 107 mmol/L 07/05/2024 6:52 PM [facility] CO2,TOTAL 20(L) 22 - 29 mmol/L 07/05/2024 6:52 PM [facility] ANION GAP 13 5 - 18 07/05/2024 6:52 PM [facility] GLUCOSE 127(H) 70 - 99 mg/dL 07/05/2024 6:52 PM [facility] CALCIUM 9.9 8.8 - 10.4 mg/dL 07/05/2024 6:52 PM [facility] Comment: Reference ranges for this test were updated on 03/06/2024 to reflect our healthy population more accurately. Reference range changes are not retroactively applied to results, but previous results using the same methodology can be interpreted in the context of the new reference range. BUN 68(H) 6 - 20 mg/dL 07/05/2024 6:52 PM [facility] CREATININE 12.60(HH) 0.70 - 1.20 mg/dL 07/05/2024 6:52 PM [facility] BUN/CREAT RATIO 5(L) 10 - 20 6:52 PM [facility] eGFR 4(L) >90 mL/min/1. 73m2 07/05/2024 6:52 PM CABLE SPLICER [facility] Comment:As of 2021, eG FR is calculated by the CKD-EPI creatinine equation without race adjustment. eGFR can be influenced by muscle mass, exercise, and diet. The reported eGFR is an estimation only and is only applicable if the renal function is stable. Blood BLOOD SPECIMEN / Unknown Butterfly / Unknown 07/05/2024 6:19 PM CABLE SPLICER 07/05/2024 6:21 PM CABLE SPLICER us Gavin Mcdonald MD CHEMISTRY Yamilet l Result [address] [address] * Supraglottic (07/05/2024 3:33 PM CABLE SPLICER) Narrative Jacquelyn Wolf CRNA - 07/05/2024 3:33 PM CABLE SPLICER Jacquelyn Wolf CRNA 07/05/2024 3:34 PM Procedure: Supraglottic Patient location during procedure: OR Supraglottic Airway Properties Mask Ventilation: not attempted Type: classic Tube Size: 5 Insertion Attempts: 1 Placement Verification: auscultation and CO2 detection Assessment Assessment: atraumatic and dentition unchanged us Mejia Carrera MD ANESTHESIA PX NOTE ORDERA BLES Final Result * SCAN-CARDIAC STRIP (07/05/2024 12:00 AM CABLE SPLICER) Narrative 07/05/2024 12:00 AM CABLE SPLICER Ordered by an unspecified provider. us Other Clinical Staff OTHER Final Resul t * SCAN-CARDIAC STRIP (07/05/2024 12:00 AM CABLE SPLICER) Narrative 07/05/2024 12:00 AM CABLE SPLICER Ordered by an unspecified provider. us Other Clinical Staff OTHER Final Resul t * SCAN-CARDIAC STRIP (07/05/2024 12:00 AM CABLE SPLICER) Narrative 07/05/2024 12:00 AM CABLE SPLICER Ordered by an unspecified provider. us Other Clinical Staff OTHER Final Resul t * (ABNORMAL) CBC AND DIFFERENTIAL (07/03/2024 4:50 PM CABLE SPLICER) [facility] WHITE BLOOD CELL COUNT 7.7 3.8 - [...] BLOOD SPECIMEN / Unknown 07/03/2024 4:50 PM CABLE SPLICER 07/03/2024 4:50 PM CABLE SPLICER us Olivier Phillips MD HEMATOLOGY Final Resu lt Performing Organization Address City/[facility]/ZIP Co de Phone Number [employer] [address] [place] [address], [place] [phone] [facility] [address] [place] [address] * LIPID PANEL W REFLEX MEASURED LDL (04/17/2024 10:16 AM CABLE SPLICER) CHOLESTEROL, TOTAL 145 <200 mg/dL [facility] [...] factors. LDL-C is now calculated using the Parrish-Kay calculation, which is a validated novel method providing better accuracy than the Friedewald equation in the estimation of LDL-C. Parrish SS et al. JULIEN. 2013;310(19): 2423-3989 (http://education.[employer]/faq/SZX427) CHOL/HDLC RATIO 2.3 <5.0 (calc) [facility] NON HDL CHOLESTEROL 81 <130 mg/dL (calc) [facility] Comment: For patients with diabetes plus 1 major ASCVD risk factor, treating to a non-HDL-C goal of <100 mg/dL (LDL-C of <70 mg/dL) is considered a therapeutic option. Blood BLOOD SPECIMEN / Unknown 04/17/2024 10:16 AM CABLE SPLICER 04/17/2024 10:16 AM CABLE SPLICER Rosamaria OBRIEN CHEMISTRY Final Resu lt [employer] [address] [place] [address], [place] [phone] [facility] [address] [place] [address] * COLONOSCOPY (12/15/2022 3:12 PM CDT) 12/15/2022 3:12 PM CDT Narrative Transcriptions Arthur Sánchez MD - 12/15/2022 4:16 PM CDT Proced[facility] Patient Name: Vik Thakkar Procedure Date: 12/15/2022 Gender: Male Date of : 1970 Admit Type: Outpatient Procedure: Colonoscopy Proceduralist: Arthur Sánchez MD - [facility] Indications/Pre-Op Diagnosis: High risk colon cancer surveillance:Personal history of colon cancer Medications: Monitored Anesthesia Care Procedure Description: The patient had risks, benefits and alternatives explained to andgave informed consent. The patient had a stable cardiopulmonary status and judged an adequate candidate for conscious sedation. The endoscope [id number] was passed through the anus andadvanced to [...] Reactive Non Reactive 10/05/2022 1:09 PM CDT [facility]) Comment: HIV Negative HIV-1/HIV-2 antibodies and HIV-1 p24 antigen were NOT detected. There is no laboratory evidence of HIV infection. Blood BLOOD SPECIMEN / Unknown Venipuncture / Unknown 10/01/2022 3:44 PM CDT 10/01/2022 3:46 PM CDT Narrative [facility] ([facility]) - 10/05/2022 1:09 PM CDT Performed at: [address] [place] [address] [address] [place], [place] [id number] County Nurse: Sudheer Yanez MD, Phone: [phone] [facility] Fin al Result Performing Organization Address City/[facility]/ZIP Co de Phone Number [facility] ([facility]) [facility] [place] [address], * ANTI HCV (12/26/2021 5:58 AM CDT) Pathologist [facility] HEPATITIS C ANTIBODY Non-React fuentes Non-React fuentes 12/28/2021 5:08 PM CDT [facility] Comment:Antibodies to HCV no t detected; does not exclude the possibility of exposure to HCV. Blood BLOOD SPECIMEN / Unknown Venipuncture / Unknown 12/26/2021 5:58 AM CDT 12/26/2021 6:33 AM CDT Gavin OBRIEN SEND OUTS Fin al Result Performing Organization Address City/[facility]/ZIP Co de Phone Number [facility] [address] [place] [address], [place] from Last 3 Months or Most [...] 06/02/2020 Insurance MEDICARE PART A HB ONLY [employer] [facility] [place] [address] [facility] PB ONLY Advance [...] Code Status Discussion: Reviewed Preferences Care Teams Wire Mill Rover Relationship Specialty Start Date End Date Rosamaria Garcia PA [address] [place] [address] PCP - General Physician Deck Worker 12/21/22 Radha Baires, [employer] Psychiatry Nurse Practitioner 07/02/16 Rosamaria Dunn Cancer Nurse Coordinator Registered Nurse 11/15/16 Alison Otto, [facility] [address] [place] [address] Mental [facility] Drug Inspector 01/18/17 Christopher Collins MBBS [address] [facility] [place] [address] Oncology Oncology 01/11/17 Nik Flores [facility] [address] [place] [address] Director Of Market Analysis 01/28/17
--- OUTSIDE RECORDS SUMMARY | 2024-09-27 16:24 | XMS_ITS | Encounter Summary ---
Author Organization [facility] Address [address] [facility] [place] [address] Care Team Providers Care Shop Manager Name Role Phone Gavin Lombardo Primary Care Provi moses Unavailable Kedar Tello MD Unavailable [phone] Rosamaria Garcia PA-C Primary Care Provider [phone] Encounter Details Date Type Department Care Team (Late st Contact Info) Description 08/24/2021 External Order Results [facility] [address] [place] [address] Outside, Provider Social History Tobacco Use Types Packs/Day Years Used Date Smoking Tobacco: Every Day Cigarettes 0.5 27 Smokeless Tobacco: Never Alcohol Use Standard Drinks/Week Comments Yes 0 (1 standard drink = 0.6 oz pur e alcohol) occ. 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
--- OUTSIDE RECORDS SUMMARY | 2024-09-27 16:24 | XMS_ITS | Clinical Summary ---
Author Organization [place] Address [address] [facility] [place] [address] Care Team Providers Care Per Assessment Nurse Name Role Phone Rosamaria Garcia PA-C Primary Care Provider Allergies Active Allergy Reactions Criticality Noted Date [...] mg by mouth every morning Active B gvlpfth-R-xtljk acid (NEPHROCAPS) 1 MG capsule Take 1 [...] Type Department Care Team Description 07/18/2024 Telephone [facility] [place] [address] [phone] Albert Goel MD Referral 07/13/2024 4:14 PM CDT - 07/13/2024 9:16 PM CDT Emergency [facility] [address] [place] [address] Rosamaria Reeves DO Reitsema, Jeffrey Alan, MD Hyperkalemia; End stage renal disease on dialysis (H); Clotted dialysis access, initial encounter; Chronic pain disorder; Continuous use of opioids Discharge Disposition: Home or Self Care 07/13/2024 1:54 PM CDT - 07/13/2024 4:05 PM CDT Hospital Encounter [facility] [address] [place] [address] Rosamaria Reeves DO ESRD (end stage renal disease) (H) Discharge Disposition: Home or Self Care 07/13/2024 Travel from Last 3 Months Family History Medical [...] on file 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 Gender Identity Not on file Sexual Orientation [...] LUNG CANCER SCREENING 2021 03/08/2016, 014 ZOSTER VACCINE (1 of 2) 2021 DTAP/TDAP/TD VACCINE (2 - Td or Tdap) 10/27/2021 10/28/2011 HEPATITIS B VACCINE (4 of 4 - Risk Dialysis Recombivax 3-dose series) 09/17/2022 09/17/2021, 04/03/2021, 07/11/2020 MEDICARE ANNUAL WELLNESS VISIT 09/17/2022 09/17/2021 COVID-19 VACCINE (3 - 2023- season) 2024 06/23/2020, 05/30/2020 PHQ-2 (once per calendar year) 2024 01/18/2023 PNEUMOCOCCAL VACCINE 50+ YEARS (4 of 4 - PCV20 or PCV21) 06/13/2024 06/13/2019, 05/26/2018, 03/17/2011 BMP 07/13/2025 07/13/2024, 04/1 05/2023, 01/04/2023 COLONOSCOPY 12/15/2032 12/15/2022, 10/0 09/2016, 10/25/2016, Additional history exists COLORECTAL CANCER SCREENING 12/15/2032 HEPATITIS C SCREENING Completed 12/26/2021 HIV SCREENING Completed 10/01/2022 INFLUENZA VACCINE Completed 02/15/2024, , 02/05/2022, Additional history exists HPV VACCINE Aged Out No longer eligi ble based on patient's age to complete this topic MENINGITIS VACCINE Aged Out No longer eligible based on patient's age to complete [...] - 99 mg/dL 07/13/2024 7:58 PM CDT LABORATORY POC Blood, Capillary BLOOD SPECIMEN / Unknown 07/13/2024 7:51 PM CDT 07/13/2024 7:58 PM CDT us Rosamaria Reeves DO LAB - BEAKER POCT Final Result LABORATORY [facility] Lab [address] (1st floor, no room number) [place] [address], [facility] * IR CVC Tunnel Placement > 5 Yrs of Age (07/13/2024 3:36 PM CDT) Anatomical Region Laterality Modality Chest Radio Fluoroscop y, Radio Fluoroscopy 07/13/2024 3:36 PM CDT Impressions 07/16/2024 4:48 PM CDT IMPRESSION: Uneventful placement of a right external jugular vein 14.5 Faroese dual lumen 23 cm tunneled palindrome catheter, [...] blunt dissection. Under fluoroscopic guidance, a 14.5 Faroese dual lumen 23 cm cuffed catheter was [...] and blunt dissection.Under fluoroscopic guidance, a 14.5 Faroese dual lumen 23 cm cuffedcatheter was then [...] of a right external jugular vein 14.5 Faroese duallumen 23 cm tunneled palindrome catheter, as described using ultrasoundand fluoroscopic guidance. This catheter is indicated to be use forhemodialysis or pheresis. PLAN: Patient's potassium of 6.4 and his hemodialysis center is onlyTuesday, Tuesday and Tuesday. Patient will go to the ER and have inpatientdialysis today. Thierry Vital MD [facility] IR ORDERABLES Final Resul t * (ABNORMAL) [...] PM CDT [facility] Comment:eGFR calculated usin g 2020 CKD-EPI equation. Calcium 10.0 8.8 - 10.4 mg/dL 07/13/2024 3:29 PM CDT [facility] Glucose 79 70 - 99 mg/dL 07/13/2024 3:29 PM CDT [facility] Blood BLOOD SPECIMEN / Unknown Vascular Access Assisted / Unknown 07/13/2024 2:45 PM CDT 07/13/2024 2:45 PM CDT us Dax Lorenz PA-C LAB - BLOOD ORDERAB LES Final Result [facility] [address] [facility] (1st floor, no room number) [place] [address], [facility] from Last 3 Months Insurance [place] [employer] MEDICARE ADVANTAGE [place] [employer] MEDICARE ADVANTAGE Care Teams Per Assessment Nurse Relationship Specialty Start Date End Date Rosamaria Garcia PA-C [address] [place] [address] PCP - General 12/15/23
--- OUTSIDE RECORDS SUMMARY | 2024-09-27 16:24 | XMS_ITS | Data Portability ---
Author Organization [place] - [facility] Address [address] [place] [address] Care Team Providers Care Manufacturing Helper Name Role Phone BRITTA RAMOS Primary Care Provider [phone] Assessment No assessment recorded. Plan of Treatment Reminders Order Date Submit Date Provider Last Modified By Organization Details Last Modified Time Details Appointments None recorded. Lab urinalysis , dipstick 2023 024 [email or web address] [id number] [facility], [address], [address], [place], [address], 11:43:13 Referral None recorded. Procedures None recorded. Surgeries None recorded. Imaging None recorded. Medication Orders None recorded. Patient TargetsNo targets recorded. Patient Instructions Encounter Date Encounter Id Patient Instructions Last Modified By Organization Details Last Modified Time 09/29/2023 [id number] will set up for cysto possible bladder biopsy/fulguratio n. [email or web address] Not available 09/29/2023 11:42:13 Reason for Referral None Reported. Results Created Date Observation Date Name Description Value Unit Range Abnormal Flag Note LastModifiedBy Organization Detail LastModifiedTime 09/29/19 24 09/29/2023 urina lysis , dipst ick pH-Status 8.5 Not Available [facility] [address], [place], [address], 09/28/2023 18:15:50 09/29/19 24 09/29/2023 urina lysis , dipst ick Blood-Status Small Not Available [facility] [address], [place], [address], 09/28/2023 18:15:50 Result Notes None recorded. Procedures Surgical History Date Name Laterality Status Provider Name and Address Organization Details Recorded Time Eye surgery follow-up add-on completed Juan Francisco Don MD [address] [place] [address],[address], [place], [address], [facility] 09/29/2023 11:31:24 Imaging Results None recorded. Procedure Notes None recorded. Medical Equipment None Reported. Allergies Allergen ID Allergen Name Allergen Category Reaction Reaction Severity Criticality Documentation Date Start Date Code Code System Note Provider Name and Address Organization Details Recorded Time 215659 Product containin g penicilli n (product) medicatio n Not available Not available Not available 09/29/2023 44813 8001 SNOMED Juan Francisco Don MD [address] [place] [phone], [facility] 4 11:26:41 [id number] lisinopri l medicatio n Not available Not available Not available 09/29/2023 92390 RxNorm Juan Francisco Don MD [address] [place] [phone], [facility] 4 11:26:45 873135 Dilaudid medicatio n Not available Not available Not available 09/29/2023 73688 3 RxNorm Juan Francisco Don MD [address] [place] [phone], [facility] 4 11:26:56 Medications Name Sig Start Date Stop Date [...] Updated DateTime 09/29/2023 165.1 cm 23.8 kg/m2 75004.71 g Juan Francisco Don MD [address] [place] [address], [phone] [place] [address] Urology 09/29/2023 11:26:30 Social History Question Answer Notes LastModified by Organizat ion Details LastModified Time Tobacco Smoking Status Former Smoker Juan Francisco Don MD [address] [place] [address], [phone] Urology 09/29/2023 11:30:13 What Is Your Level Of Caffeine Consumption? Occasional Information not available 09/29/2023 When Did You Quit Smoking? 1-5yearssinjuve moreno [email or web address] Information not available 09/29/2023 What Was The Date Of Your Most Recent Tobacco Screening? 09/29/2023 Information not available 09/29/2023 Sex: Unknown Functional Status Question Answer Note LastModified by Organization D etails LastModified Time What is your level of alcohol consumption? None [email or web address] Information not available 09/29/2023 Mental Status None recorded. Family History Relationship Description Onset Age of this Age Resolved Age Notes LastModified by Organization Details LastModified Time Mother Family history of malignant neoplasm [email or web address] Not available 09/28 11:29:42 Mother Family history of diabetes mellitus [email or web address] Not available 09/28 11:29:52 Sister Family history of malignant neoplasm [email or web address] Not available 09/28 11:29:42 Sister Family history of diabetes mellitus Not available 09/28 11:29:52 Medical History Condition Response Sexually Transmitted Infection N Diabetes N Bleeding Disorder N Other N High Blood Pressure N Kidney Stones N High Cholesterol N GERD/Acid Reflux N Heart Disease N Cancer Y Lung Disease N Depression N Past Encounters Encounter ID Performer Location Encounter Start Date Encounter Closed Date Diagnosis/Indication Diagnosis SNOMED-CT Code Diagnosis ICD10 Code Diagnosis Note [id number] Juan Francisco Don MD [facility] [address] [place] [address] 09/29/2023 11:15:44 10/06/2023 14:11:40 Microscopic hematuria 790085522 R31.29 bladder wall thickening . Health Concerns Section Related Observation LastModified by Organization Detai ls LastModified Time None Recorded Concern Status LastModified by Organization Details LastModified Time None Recorded Advance Directives Directive None Recorded Payers Insurance Date Sequence Insurance Name Policy Number Policy Burleson Covered Member ID Burleson Member ID Guarantor Name 07/10/2024 1 [place] [employer] RaúlVazquez Thakkar [id number] RaúlVazquez Thakkar 05/22/2024 1 MEDICA - MEDICA GOVERNMENT PROGRAMS (MEDICAID REPLACEMENT - HMO) Vik Engle [id number] RaúlVazquez Thakkar 05/22/2024 1 [place] [employer] Ting Engle [id number] Raúl Thakkar 05/22/2024 1 [place] [employer] Raúl Thakkar [id number] Raúl Thakkar 06/05/2024 2 [place] Raúl Thakkar [id number] Raúl Thakkar 05/22/2024 1 [place] [employer] Raúl Maroles [id number] Vik Thakkar 07/10/2024 2 MEDICA [facility]ICE [facility] (MEDICAID HMO) [id number] Vik Thakkar [id number] Vik Thakkar 07/10/2024 1 [facility] (MEDICARE REPLACEMENT/ADVA NTAGE - PPO) [id number] Vik Thakkar [id number] Vik Thakkar Notes Date Note Type Note Provider Name and Address Organization Details Recorded Time 09/29/2023 text/html New patient is here today for possible bladder wall thickening. . UA Small RBC and >300 protein. 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 makes enough urine for voiding 1x/day. CT showed possible thickening of bladder and atrophic kidneys. CRF from [place] Don MD [address] [facility] [address], [place], [address], [facility] Urology 09/29/2023 11:43:29
--- NOTE | 2024-09-27 16:28 | ED.GENADULT ---
HPI - General Adult General Time Seen by Provider: 16:28 Date Seen: 09/27/24 Chief complaint: Post Op Complication Stated complaint: R side groin bleeding, surgery today Time Seen by Provider: 09/27/24 16:26 Source: patient and RN notes reviewed Mode of arrival: ambulatory Limitations: no limitations History of Present Illness HPI narrative: This 54-year-old male is ambulatory into the ER with concern of bleeding from his surgical sites. He reportedly had surgery at [facility] today, is a dialysis patient. His left arm fistula is reportedly no longer functional. He had a catheter placed in his right groin, states they did surgery on his right arm for a new fistula. He states he was bleeding at the facility for a while but the last hour so prior to leaving there was no bleeding. He denies any blood thinners. He states he was just driving home, started feeling his right leg felt warm and wet and saw blood coming through his pants. Also noted at that point bleeding through the bandages in his right upper arm. He notes no symptoms from acute blood loss anemia, no acute trauma to these areas, was just coming home. Contacted the vascular facility and they told him to come to the ER, he proceeded to come here. Related Data Home Medications ?Medication ?Instructions ?Recorded ?Confirmed amlodipine 10 mg tablet 10 mg PO DAILY 12/26/21 09/27/24 atorvastatin 40 mg tablet 40 mg PO DAILY 12/26/21 09/27/24 diclofenac sodium 1 % topical gel 2 g topical 12/26/21 ferric citrate 210 mg iron tablet 2 tab PO TID 12/26/21 09/27/24 (Auryxia) lidocaine-prilocaine 2.5 %-2.5 % 1 applic topical DAILY 12/26/21 09/27/24 topical cream metoprolol tartrate 25 mg tablet 25 mg PO Q12H 12/26/21 09/27/24 sennosides 8.6 mg tablet (Suyapa-ulysses) 8.6 mg PO DAILY PRN 12/26/21 09/27/24 sevelamer carbonate 800 mg tablet 2,400 mg PO TID 12/26/21 09/27/24 vit B,C-folic ac 800 mcg-zinc 12.5 1 tab PO DAILY 12/26/21 09/27/24 mg-selen-D3 2,000 unit-vit E tablet (RenaPlex-D) sucralfate 100 mg/mL oral 1 g PO BID 02/11/23 09/27/24 suspension (Carafate) tizanidine 2 mg tablet 2 mg PO QPM 02/11/23 09/27/24 dicyclomine 20 mg tablet 20 mg PO cramps 08/23/24 escitalopram oxalate 5 mg tablet 5 mg PO QAM 08/23/24 09/27/24 metoclopramide HCl 5 mg tablet 2.5 mg PO BID PRN abdominal pain 08/23/24 09/27/24 nortriptyline 10 mg capsule mg PO 08/23/24 oxycodone 10 mg tablet 15 mg PO QID 08/23/24 09/27/24 aspirin 81 mg tablet,delayed mg PO 09/27/24 release furosemide 40 mg tablet 80 mg PO 09/27/24 ondansetron HCl 4 mg tablet 4 mg PO Q8H PRN 09/27/24 09/27/24 Previous Rx's ?Medication ?Instructions ?Recorded fidaxomicin 200 mg tablet 200 mg PO BID 10 days #20 tabs 10/21/22 Allergies Allergy/AdvReac Type Severity Reaction Status Date / Time lisinopril Allergy Severe angioedema Verified 09/27/24 16:29 Penicillins Allergy Unknown Verified 09/27/24 16:29 hydromorphone (From Dilaudid) AdvReac nausea/vomi Verified 09/27/24 16:29 ting Review of Systems Narrative: As per HPI. [facility] Medical History Type 2 diabetes mellitus, without long-term current use of insulin ?E11.9 - Type 2 diabetes mellitus without complications (ICD-10) Hypertension ?I10 - Essential (primary) hypertension (ICD-10) Malignant neoplasm of sigmoid colon ?C18.7 - Malignant neoplasm of sigmoid colon (ICD-10) Spondylosis of lumbar region without myelopathy or radiculopathy ?M47.816 - Spondylosis without myelopathy or radiculopathy, lumbar region (ICD-10) Bilateral hip pain ?M25.551 - Pain in right hip (ICD-10) ?M25.552 - Pain in left hip (ICD-10) Spinal stenosis, lumbar region without neurogenic claudication ?M48.061 - Spinal stenosis, lumbar region without neurogenic claudication (ICD-10) Lumbar foraminal stenosis ?M48.061 - Spinal stenosis, lumbar region without neurogenic claudication (ICD-10) Chronic abdominal pain ?R10.9 - Unspecified abdominal pain (ICD-10) ?G89.29 - Other chronic pain (ICD-10) Chronic pain of both shoulders ?M25.511 - Pain in right shoulder (ICD-10) ?M25.512 - Pain in left shoulder (ICD-10) ?G89.29 - Other chronic pain (ICD-10) Peripheral polyneuropathy ?G62.9 - Polyneuropathy, unspecified (ICD-10) Chronic thoracic back pain ?M54.6 - Pain in thoracic spine (ICD-10) ?G89.29 - Other chronic pain (ICD-10) GERD (gastroesophageal reflux disease) ?K21.9 - Gastro-esophageal reflux disease without esophagitis (ICD-10) Chronic constipation ?K59.09 - Other constipation (ICD-10) Hematemesis ?K92.0 - Hematemesis (ICD-10) Anxiety and depression ?F41.9 - Anxiety disorder, unspecified (ICD-10) ?F32.A - Depression, unspecified (ICD-10) ESRD on hemodialysis ?N18.6 - End stage renal disease (ICD-10) ?Z99.2 - Dependence on renal dialysis (ICD-10) Secondary hyperparathyroidism (of renal origin) ?N25.81 - Secondary hyperparathyroidism of renal origin (ICD-10) Surgical History History of colectomy ?Z90.49 - Acquired absence of other specified parts of digestive tract (ICD-10) History of cholecystectomy ?Z90.49 - Acquired absence of other specified parts of digestive tract (ICD-10) Social History Smoking Status: Former smoker Do you use any of these nicotine containing products: None Second hand tobacco smoke exposure: No How often do you have a drink containing alcohol: never How often do you have six or more drinks on one occasion: Never AUDIT-C Alcohol total score: 0 Non-prescribed substance use: marijuana (any form) service: No Exam Const: Vital Signs, click to edit/add: Vital Signs - 24 hr 09/27/24 16:32 09/27/24 16:52 Temperature 97.0 F L Pulse Rate [Pulse Oximeter] 63 Respiratory Rate 16 Blood Pressure [Le ft Leg] 148/86 H Pulse Oximetry 100 100 Oxygen Delivery Me thod Room Air This 54-year-old male is alert, interactive, no apparent distress, did watch him ambulate into the ER. Can see some blood staining on his weight pants as he walks into exam room 6. Lungs are clear, good air entry, no wheezing crackles. CV regular rate and rhythm. His bandages on his right upper arm have blood that is seeped through the gauze and the Bear wrap in his right upper arm axillary area, do note a site lower by the elbow where it has blood through as well. He has a clear dressing overlying a catheter in his right groin, the dressing or gauze around the catheter underlying the clear plastic dressing show saturation. There is no active bleeding while he is at rest on the bed but obviously did have some ongoing oozing from this site as evidence by his pants coming in. When the dressing was taken down his right upper arm, it was in a L-shaped. The bottom portion which was horizontal had just some mild nonspecific wound oozing. In the middle of the vertical portion of this wound with stitches, between 2 stitches there was active ongoing extravasation of blood this was certainly concerning for deeper bleeding. Two pieces of Gelfoam were obtained, placed over air the sutures in surgical wounds and redressed with pressure dressing. His groin will just be observed and will put a pressure dressing if extravasation noted. Documenting provider has reviewed patient's vital signs: yes Course Course ED Course: This patient has had 2 vascular access procedures at [facility] in [place] today. Will need to contact them. Will have him on pulse oximetry, cardiac monitoring, obtain baseline labs including coags, recheck CBC to ensure no significant blood loss anemia on a and stability of platelets. I will not be giving him anything like TXA at this time, his vascular access catheters are extremely important in do not want to risk any thrombosis or loss of these sites unless we have life-threatening bleeding. The bleeding I am seeing now certainly need some further intervention but seems controllable. He will continue to be monitored while I attempt to contact the vascular surgeon. Reevaluation(s) Time of Reevaluation #1: 16:55 Reevaluation #1: No bleeding through his current bandages at this time. The left groin site is still visible, no ongoing active extravasation. Consultations Consultation #1: Spoke with JASMIN Kincaid from [facility] where the patient had the procedure done. She states that he had no bleeding for over an hour and half prior to discharge. She does note that he got 5000 units of heparin but was probably 3-4 hours ago. He otherwise is only on aspirin. She did ask if he has history of thrombocytopenia, platelets were normal in number in July here; reviewed that we do not have current labs back. She recommends transfer to where there vascular surgeons go which is [facility]. We will contact them. She wonders if he needs an evacuation of his arm wound. Did review with her that we do have Gelfoam and a new wrap being placed. She was going to suggest Gelfoam. Time: 16:37 Consultation #2: Spoke with the ER doctor at [facility] Dr. Shearer. Reviewed case with him. Reviewed that I am not completely sure but I do think they were doing a new fistula in his right arm, has a arterial access for dialysis in his right growing in the interim. I did not confirm with the nurse on the phone exact procedure. Time: 17:01 Vital Signs Vital signs: Initial Vital Signs Temperature 97.0 F L 09/27/24 16:32 Temperature Source Temporal Artery Scan 09/27/24 16:32 Pulse Rate 63 09/27/24 16:32 Respiratory Rate 16 09/27/24 16:32 Blood Pressure 148/86 H 09/27/24 16:32 Blood Pressure Mean 106 H 09/27/24 16:32 Blood Pressure Position Semi-Fowlers 09/27/24 16:32 Pulse Oximetry 100 09/27/24 16:32 Oxygen Delivery Method Room Air 09/27/24 16:32 Vital Signs Temperature 97.0 F L 09/27/24 16:32 Pulse Rate 63 09/27/24 16:32 Respiratory Rate 16 09/27/24 16:32 Blood Pressure 148/86 H 09/27/24 16:32 Pulse Oximetry 100 09/27/24 16:32 Oxygen Delivery Method Room Air 09/27/24 16:32 Temperature 97.0 F L 09/27/24 16:32 Pulse Rate 63 09/27/24 16:32 Respiratory Rate 16 09/27/24 16:32 Blood Pressure 148/86 H 09/27/24 16:32 Pulse Oximetry 100 09/27/24 16:52 Oxygen Delivery Method Room Air 09/27/24 16:32 Medications Administered Medications: Discontinued Medications Generic Name Dose Route Start Last Admin Trade Name Jesúsq PRN Reason Stop Dose Admin Oxycodone HCl 15 mg 09/27/24 17:08 09/27/24 17:14 Oxycodone 5 Mg Tablet PO 09/27/24 17:09 15 mg ONCE ONE Administration Medical Decision Making Lab Data Lab results reviewed: Yes I reviewed the patient's lab results Labs: Lab Results 09/27/24 Range/Units 16:50 WBC 12.55 H (4.50-11.00) K/uL RBC 3.66 L (4.30-5.90) m/uL Hgb 11.9 L (13.5-17.5) gm/dL Hct 36.3 L (37.0-53.0) % MCV 99 (80-100) fL MCH 33 (26-34) pg MCHC 33 (32-36) gm/dL RDW Coeff of Mike 14.2 (11.5-15.5) % Plt Count 161 (140-440) K/uL Neut % (Auto) 73.0 H (42.0-72.0) % Lymph % (Auto) 16.4 L (20-44) % Bladen % (Auto) 8.0 (0.0-11.0) % Eos % (Auto) 2.2 (0.0-7.0) % Baso % (Auto) 0.2 (0.0-3.0) % Neut # (Auto) 9.20 H (1.7-7.0) K/uL Lymph # (Auto) 2.10 (0.90-2.90) K/uL Bladen # (Auto) 1.00 H (0.00-0.90) K/UL Eos # (Auto) 0.30 (0.00-0.50) K/uL Baso # (Auto) 0.00 (0.00-0.30) K/uL Abs Immat Gran (auto) 0.00 (0.00-0.30) K/uL Imm/Tot Granulo (auto) 0.2 % Discharge Plan Discharge Clinical Impression: Postoperative hemorrhage from incision Patient Disposition: [facility] Acute [facility] Discharge Location: [facility] Condition: Stable
[2024-09-27 16:55] LABS: Basophils Percent Auto 0.2 % (0.0-3.0); Eosinophils Percent Auto 2.2 % (0.0-7.0); Hematocrit 36.3 % (37.0-53.0); Hemoglobin* 11.9 gm/dL (13.5-17.5); Immature Granulocytes Pct Auto 0.2 %; Lymphocytes Percent Auto 16.4 % (20-44); Mean Corpuscular HGB Conc 33 gm/dL (32-36); Mean Corpuscular Hemoglobin 33 pg (26-34); Mean Corpuscular Volume 99 fL (80-100); Platelet Count* 161 K/uL (140-440); RDW Coefficient of Variation % 14.2 % (11.5-15.5); Red Blood Count 3.66 m/uL (4.30-5.90); White Blood Count* 12.55 K/uL (4.50-11.00)
[2024-09-27 17:09] LABS: Chloride* 103 mmol/L (96-114); Sodium* 132 mmol/L (135-149)
[2024-09-27 17:10] LABS: Potassium* 5.1 mmol/L (3.6-5.1)
[2024-09-27 17:12] LABS: Blood Urea Nitrogen* 37 mg/dL (7-30); Est. Creatinine Clearance* 6.67; Estimated Glomerular Filt Rate 5 ml/min
[2024-09-27 17:13] LABS: Anion Gap 12 mEq/L (7-15); Calcium* 9.5 mg/dL (8.4-10.6); Carbon Dioxide* 17 mmol/L (20-32); Glucose* 169 mg/dL (60-115); INR 1.05 (0.91-1.10); Prothrombin Time 14.5 Seconds
[2024-09-27] MEDS: OXYCODONE 5 MG TABLET 15 MG PO (17:14)
[2024-09-27 17:52] LABS: Partial Thromboplastin Time* > 180 Seconds (23-33)
[2024-09-27 18:29] LABS: Slide Review Reflex No
== END 2024-09-27 18:21 | disposition short-term general hospital (02) ==
LOC: ED 18:11
PROVIDERS: Emergency Provider Family Medicine; PCP Physician Assistant
DX: L76.22 Postprocedural hemorrhage of skin and subcutaneous tissue following other procedure (principal)
CPT/HCPCS: 36415; 80048; 85025; 85610; 85730; 94761; 99284; 99285; A9270

== ENCOUNTER 2024-09-27 18:08 | Outpatient (CLI) | payer MEDICARE, OTHER, SELFPAY | END 2024-09-27 18:09 | disposition home or self-care (01) | PROVIDERS: PCP Physician Assistant; Visit Provider Family Medicine | DX: T82.838A Hemorrhage due to vascular prosthetic devices, implants and grafts, initial encounter (principal) | CPT/HCPCS: A0425; A0427 ==

== ENCOUNTER 2024-10-31 13:42 | Emergency (ER) | payer MEDICARE, OTHER, SELFPAY ==
--- OUTSIDE RECORDS SUMMARY | 2024-09-27 19:21 | XMS_ITS | Encounter Summary ---
Author Organization [facility] Address [address] [place] [address] Care Team Providers Care Crabber Name Role Phone Rosamaria Garcia PA-C Primary Care Provider + Reason for Referral * (Routine) - Pending Review Specialty Diagnoses / Procedures Referred By Contac t Referred To Contact Procedures Discharge Instructions Tasia Carty PA-C [address] [place] [id number] Phone: tel: fax: Referral ID Status Reason Start Date Expiration Date V isits Requested Visits Authorized [id number] Pending Review 09/28/2024 1 1 Reason for Visit * Reason Comments Other Bleeding from fistul a * Inpatient Admission (Routine) Specialty Diagnoses / Procedures Referred By Contac t Referred To Contact Diagnoses Bleeding Referral ID Status Reason Start Date Expiration Date Visits Re quested Visits Authorized [id number] 1 1 Encounter Details Date Type Department Care Team (Late st Contact Info) Description 09/27/2024 7:21 PM CDT - 09/28/2024 4:41 PM CDT Hospital Encounter [address] [place] [address] [id number] Adam Kimble MD [address] [place], [place] [address] Yazan Graham MD [address] [place], [place] [phone] Samson Billingsley DO [address] [phone] Bleeding Discharge Disposition: Returning Home/Self Care Social History Tobacco Use Types Packs/Day Years Used Date Smoking Tobacco: Never Smokeless Tobacco: Never Tobacco Cessation:Counseling Given: Not Answered Alcohol Use Standard Drinks/Week Comments Not Currently 0 (1 standard drink = 0.6 oz pur e alcohol) [facility] Utilities Answer Date Recorded In the past [...] any time in the past 12 m [facility], were you homeless or living in a halfway (including now)? No 09/27/2024 Sex and Gender [...] has been scheduled for you at the [facility] on 10/11/24 at 1045.Please arrive to [address] [place] [address], [address], [place], [place] at that time. Please call [phone] if you have any questions, concerns, or need to cancel/change your appointment. Total time spent on the day of discharge was Time: over 30 minutes including discharge planning, discussion with the patient, family, vascular surgery, nephrology, case management, RN, chart reviewing, and completing the discharge summary. Samson Billingsley DO [facility] Medicine documented in this encounter Medications at [...] 09/28/2024 4:41 PM CDT Vik Thakkar [phone] P: Discharge A: Discharged via wheelchair to [...] dialyzed for 3.5 hours on a Nipro Cyotaio dialyzer and had a net fluid removal [...] HLD, Anxiety/depression, colon cancer Summary: Transfer from [facility] ED for evaluation of bleeding from newly placed R AV fistula and femoral PCAD site. Pt A&O, afebrile, no cp, sob. Pt c/o nausea, PRN compazine given w/ good effect. F- Feeding & Fluids: Renal diet and thin liquids. Takes meds whole. A- Analgesic & Anticoagulation: Analgesic C/o pain 10/10 in RUE. [facility] Zanaflex given w/ little effect. PRN 0.5 [...] to call for help, name of assigned home care associate, belongings checklist, unit and plan of care. R. Patient expressed understanding of information.. documented in this encounter H&P Notes * Yazan Graham MD - 09/27/2024 8:20 PM CDT ADMISSION HISTORY AND PHYSICAL Patient Name: Vik Thakkar Address: [address] [address] Age: 54 y.o. Sex: male Admission Date/Time: [...] femoral PCAD site. Pt transferred here from [facility] ED where he had presented for evaluation of bleeding from his fistula and cath site. Per report, he was having issues with his L arm fistula and underwent a scheduled R arm fistula + Femoral pcad placement today with [facility]. He states that hereceived heparin and had bleeding post procedure but the team was able to control it prior to discharge. On his way home he started bleeding again (from both sites) and was taken to the [facility] ED. Gelfoam was placed and LUE wrapped [...] Insecurity: No Food Insecurity (07/05/2024) Received from [facility] Food Insecurity Do you worry your food will run out before you are able to buy more?: 1 Transportation Needs: No Transportation Needs (07/05/2024) Received from [facility] Transportation Needs Does lack of transportation keep you from medical appointments?: 1 Does lack of transportation keep you from work, meetings or getting things that you need?: 1 Intimate Partner Violence: Not At Risk (09/27/2024) Humiliation, Afraid, Rape, and Kick questionnaire Fear of Current or Ex-Partner: No Emotionally Abused: No Physically Abused: No Sexually Abused: No Housing Stability: Low Risk (07/05/2024) Received from [facility] Housing Stability What is your housing situation [...] Pt is otherwise HDS- monitor vitals Hold [employer] ASA tonight- resume once cleared by Vascular ESRD on HD K 5.3, CO2 19, cr 11.48 Last HD wed Nephrology consult in AM to assist with HD needs- due for HD tomorrow HTN Resume [employer] blood pressure regimen in AM granted that his pressures stay stable overnight- no concerns at this time. Chronic pain Resume [employer] oxycodone History of gastroparesis [employer] MiraLAX, senna, dicyclomine DM -BG 103, not on any [facility] regimen, monitor glucose Anxiety/depression W[employer] nortriptyline Pharmacy consult to assist with med [...] 9:14 AM CDTAssociated Order(s): CONSULT VASCULAR SURGERY [facility] Patient Name: Vik Thakkar Address: [address] [address] Age:54 y.o. Sex: male Admission Date/Time: 09/27/2024 [...] catheter and right AVG placement yesterday at [facility] by [place] Worthington. His right arm and [...] Call with questions. Tasia Carty PA-C [facility] Pager [phone] * Duglas Cunha MD - 09/28/2024 8:58 AM CDTAssociated Order(s): CONSULT NEPHROLOGY Images from the original note were not included. RENAL CONSULTATION Patient Name: Vik Thakkar Address: [address] [facility] [address] Age: 54 y.o. Sex: male Admission Date/Time: 09/27/2024 7:21 PM Primary Care Provider: Rosamaria Garcia PA-C Informant: patient, outpatient record, and inpatient record ASSESSMENT / PLAN: 1. ESRD on HD Follows with Dr Vital at [facility], [facility]. Last dialysis 09/26 for a shortened run [...] weeks Duglas Cunha MD [facility] [place] [phone] CHIEF COMPLAINT: Dialysis access complication HPI: This is a 54 year old male with a PMHx significant for ESRD (on HD [facility] at [facility] under the care of Dr Vital,) DMT2, [...] Notes I reviewed the transfer note from [facility] noting creating a new fistula to the [...] dialysis catheter placement, right Pilonidal cyst/sinus excision [place] teeth extraction Physical Exam Temperature: 97.6 ??F [...] due to dialysis catheter placement, initial encounter ([facility]) T82.838A [employer] * Zully Eckert RN - 09/27/2024 7:25 PM CDT Pt arrives via EMS from [facility] ED as a known transfer - see prior transfer notes. Per EMS report: 50 mcg Fentanyl given en route by EMS. Pt has an old fistula access site still present in E. RUE fistula site and R groin sites were both bleeding - bleeding currently controlled. Both sites bandaged upon arrival to [place]. Pt endorsing chronic back pain along with pain in RUE fistula area. EMS interventions: Lines: 20G left hand VS: stable en route Allergies added to pt chart after reviewing transfer paperwork and confirming with pt. * Roxane Sanz RN - 09/27/2024 5:42 PM CDT Transfer to [facility] Information Transferring facility: [facility] [place] [facility] taking transfer request: Janki Guerrier MD / specialist notified: none Special needs / direction: none Description of Illness / Injury: To the ED at [facility] with post procedure bleeding after having a [...] to complete full run. Expected to leave [facility] at approx 1900. * Hugo Shearer MD - 09/27/2024 5:01 PM CDT Transfer to [facility] Information Transferring facility: [facility] emergency [facility] taking transfer request: Janki Guerrier MD / specialist notified: none Special needs / direction: none Description of Illness / Injury: Dialysis patient with bleeding complications. Reported to have no longer functioning left upper extremity fistula. It sounds like vascular is working on creating a new fistula to the right upper extremity. In the meantime dialysis catheter placed and growing. Patient presented to [facility] emergency department with bleeding from both his right groin and the rightupper extremity site. They placed Gelfoam and wrapped the right upper extremity which was bleeding more significantly. I contacted the nurse of the vascular service who recommended transfer to [facility]. Hugo Shearer MD documented in this encounter Miscellaneous Notes * Med Reconciliation - Rosalind Palma - 09/27/2024 8:48 PM CDT PHARMACY MEDICATION RECONCILIATION NOTE MEDICATION RECONCILIATION on admission by pharmacy has been completed. Prior to admission medications were reviewed with outside pharmacy fill records, recent clinical summaries ([facility], [facility]), and with the patient at bedside. The [facility] medication list has been updated and reflected in the chart below. Please use the [facility] [employer] medication section for ordering home doses during admission. Medication related issues (discrepancies, interactions, additions, removals, changes, compliance/adherence): Added: all medications to [facility] [employer] list Medications requiring detailed history: Not applicable [...] Medications: None This patient obtains medications from [address] Thank you for the opportunity to participate in the care of this patient. Jared Tucker, Rn Faculty Phone #:[phone] Time spent reconciling meds: 30 min Location: [...] ve Non-Reacti ve 09/28/2024 10:59 AM CDT [facility] Blood 09/28/2024 9:28 AM CDT 09/28/2024 9:31 AM CDT us Duglas Cunha MD IMMUNOLOGY ORDERABLE Final Resul t Performing Organization Address [facility] Co de Phone Number [facility] [address] [place] [address] * (ABNORMAL) Potassium, Serum (09/28/2024 9:28 AM CDT) Potassium 5.5(H) 3.4 - 5.1 mmol/L 09/28/2024 10:[address] [facility] Blood 09/28/2024 9:28 AM CDT 09/28/2024 9:31 AM CDT us Samson Billingsley DO CHEMISTRY ORDERABLE Final Resu lt Performing Organization Address [facility] Co de Phone Number [facility] [address] [place] [address] [place] [address] * ABORh Confirm (Lab Use Only) (09/28/2024 9:28 AM CDT) Group and Rh O Positive 09/28/2024 10:[address] [facility] Blood 09/28/2024 9:28 AM CDT 09/28/2024 9:31 AM CDT us Adam Kimble MD BLOOD BANK ORDERABLE Final Res ult Performing Organization Address [facility] Co de Phone Number [facility] [address] [place] [address] [place] [address] [facility] [place] [address] * Extra Tube PST (Lab Use Only) (09/28/2024 9:24 AM CDT) Blood 09/28/2024 9:24 AM CDT 09/28/2024 9:33 AM CDT us Samson Billingsley DO CHEMISTRY ORDERABLE Final Resu lt Performing Organization Address [facility] de Phone Number [facility] [address] [place] [address] * POCT Glucose Meter (09/28/2024 7:41 AM CDT) [facility] GLUCOSE WB METER 87 60 - 100 mg/dL 09/28/2024 7:[address] [facility] Blood 09/28/2024 7:41 AM CDT 09/28/2024 7:58 AM CDT Samson Billingsley DO LAB POINT OF CARE TEST RESULTS Final Result Performing Organization Address [facility] Number [facility] [place] [address] * Hepatitis B Surface Antibody (09/28/2024 4:37 AM CDT) [facility] HEP BS ATBY QUALITATIVE Reactive 09/28/2024 9:[address] [facility] Comment:>10 mIU/mL. Immune. Blood 09/28/2024 4:37 AM CDT 09/28/2024 4:59 AM CDT Duglas Cunha MD IMMUNOLOGY ORDERABLE Final Resul t Performing Organization Address [facility] de Phone Number [facility] [place] [address] * (ABNORMAL) Basic Metabolic Profile (09/28/2024 4:37 AM CDT) Only the most recent of2 resultswithin the time period is included. [facility] Sodium 134(L) 136 - 145 mmol/L 09/28/2024 6:[address] [facility] Potassium 5.8(H) 3.4 - 5.1 mmol/L 09/28/2024 6:[address] [facility] Chloride 102 98 - 108 mmol/L 09/28/2024 6:04 AM [facility] Carbon Dioxide 20 20 - 31 mmol/L 09/28/2024 6:04 AM [facility] BUN (Urea Nitro) 41(H) 9 - 23 mg/dL 09/28/2024 6:04 AM [facility] Creatinine 12.16(HH) 0.73 - 1.18 mg/dL 09/28/2024 6:04 AM [facility] Comment:Critical Result(s) C alled at 05:59:28 09/28/2024 to and read back by Mike Robison RN by cruz Thomas GFR (CKD-EPI) 4.49(L) >60.00 mL/min/1. 73m2 09/28/2024 6:04 AM [facility] Comment:Calculation based on the Chronic Kidney Disease Epidemiology Collaboration (CKD-EPI) equation refit without adjustment for race. Glucose 119(H) 74 - 106 mg/dL 09/28/2024 6:04 AM [facility] Calcium, Serum 9.2 8.7 - 10.4 mg/dL 09/28/2024 6:04 AM [facility] Anion Gap 12.0 0.0 - 15.0 mmol/L 09/28/2024 6:04 AM [facility] Blood 09/28/2024 4:37 AM CDT 09/28/2024 4:59 AM CDT Yazan Graham MD CHEMISTRY ORDERABLE Final Result Performing Organization Address City/State/[facility] de Phone Number [facility] [address] [place], [place] [id number] * (ABNORMAL) Hemoglobin (09/28/2024 4:37 AM CDT) Hemoglobin 10.0(L) 14.0 - 18.0 gm/dL 09/28/2024 5:06 AM [facility] Blood 09/28/2024 4:37 AM CDT 09/28/2024 4:59 AM CDT us Yazan Graham MD HEMATOLOGY ORDERABLE Final Resul t [facility] [address] [address] * (ABNORMAL) PTT (09/27/2024 7:52 PM CDT) PTT 39.6(H) 24.0 - 31.0 sec. 09/27/2024 8:[address] [facility] Blood 09/27/2024 7:52 PM CDT 09/27/2024 7:[address] [facility] - 09/27/2024 8:23 PM CDT aPTT Therapeutic Reference Ranges: Heparin protocol: 38 - 75 seconds standard/low dose 43 - 86 seconds high dose Argatroban protocol: 60 - 85 seconds Bivalirudin protocol: 43 - 71 seconds Adam Kimble MD COAGULATION ORDERABLE Final Re sult Performing Organization Address City/[facility]/ZIP Co de Phone Number [facility] [address] [place] [address] * Protime/INR (09/27/2024 7:52 PM CDT) Pathologist [facility] INR 1.0 0.9 - 1.2 09/27/2024 8:[address] [facility] Blood 09/27/2024 7:52 PM CDT 09/27/2024 7:59 PM CDT Adam Kimble MD COAGULATION ORDERABLE Final Re sult Performing Organization Address City/[facility]/ZIP Co de Phone Number [facility] [address] [place] [address] * (ABNORMAL) CBC (09/27/2024 7:52 PM CDT) Pathologist [facility] WBC 10.4 4.3 - 10.8 K/uL 09/27/2024 8:05 PM [facility] RBC 3.28(L) 4.60 - 6.20 M/uL 09/27/2024 8:05 PM [facility] Hemoglobin 10.8(L) 14.0 - 18.0 gm/dL 09/27/2024 8:05 PM [facility] Hematocrit 32.8(L) 40.0 - 54.0 % 09/27/2024 8:05 PM [facility] MCV 100 80 - 100 fL 09/27/2024 8:05 PM [facility] MCH 33 27 - 33 pg 09/27/2024 8:05 PM [facility] MCHC 33 33 - 36 gm/dL 09/27/2024 8:05 PM [facility] RDW 14.2 11.5 - 14.5 % 09/27/2024 8:05 PM [facility] Platelet Count 149(L) 150 - 400 K/UL 09/27/2024 8:05 PM [facility] MPV 10.2 6.5 - 12 fL 09/27/2024 8:05 PM [facility] Blood 09/27/2024 7:52 PM CDT 09/27/2024 7:59 PM CDT us Adam Kimble MD HEMATOLOGY ORDERABLE Final Res ult Performing Organization Address City/[facility]/ZIP Co de Phone Number [facility] [address] [place] [address] * Type & Screen (09/27/2024 7:52 PM CDT) Group and Rh O Positive 09/27/2024 8:[address] [facility] Antibody Screen Negative 09/27/2024 8:[address] [facility] Blood 09/27/2024 7:52 PM CDT 09/27/2024 7:59 PM CDT us Adam Kimble MD BLOOD BANK ORDERABLE Edited Re sult - Final [facility] [address] [place] [address] [facility] [address] [place] [address] documented in this encounter Visit Diagnoses Diagnosis [...] RN) documented in this encounter Care Teams Crabber Relationship Specialty Start Date End Date Rosamaria Garcia PA-C [address] [place], [place] [phone] PCP - General 09/27/24 documented as of this encounter
--- OUTSIDE RECORDS SUMMARY | 2024-10-31 13:46 | XMS_ITS | Referral Summary ---
Author Organization [facility] Address [address] [place] [address] Care Team Providers Care Lace Roller Name Role Phone Rosamaria Garcia PA-C Primary Care Provider + Encounters Date Type Department Care Team Description 09/27/2024 7:21 PM CDT - 09/28/2024 4:41 PM CDT Hospital Encounter W2 [address] [place] [address] [id number] Adam Kimble MD Malik, Saad S, MD Varghese, Alvin, DO Bleeding Discharge Disposition: Returning Home/Self Care 09/27/2024 Travel from Last 3 Months Allergies Active Allergy Reactions Criticality Noted Date Comments Adhesive Tape-Silicones Unknown 09/27/2024 Hydromorphone Nausea 09/27/2024 Lisinopril Other 09/27/2024 Angioedema Penicillins Unknown 09/27/2024 Medications amLODIPine (NORVASC) 10 mg oral tablet Take 1 tablet (10 mg) by mouth once daily. Active aspirin 81 mg oral enteric coated tablet Take 1 tablet (81 mg) by mouth once daily. Active atorvastatin (LIPITOR) 40 mg oral tablet Take 1 tablet (40 mg) by mouth at bedtime. Active ferric citrate 210 mg iron oral Tab Take 3 tablets (630 mg) by mouth three times a day with meals. Active metoprolol tartrate (LOPRESSOR) 25 mg oral tablet Take 1 tablet (25 mg) by mouth twice a day. Active oxyCODONE, immediate release, (ROXICODONE) 10 mg oral tablet Take 1.5 tablets (15 mg) by mouth four times a day. Active polyethylene glycol (MIRALAX) 17 gram oral packet Take 17 g by mouth once a day as needed for constipation. Mix each dose in 4-8 ounces of liquid as directed. Active senna (SENOKOT) 8.6 mg oral tablet Take 1 tablet (8.6 mg) by mouth twice a day as needed (constipation ). Active tiZANidine (ZANAFLEX) 2 mg oral tablet Take 1 tablet (2 mg) by mouth twice a day as needed (muscle spasms). Active dicyclomine (BENTYL) 20 mg oral tablet Take 1 tablet (20 mg) by mouth twice a day as needed (IBS). Active ondansetron (ZOFRAN) 8 mg oral ODT Dissolve 1 tablet (8 mg) in mouth every 8 (eight) hours as needed (nausea/vomit ing). Active nortriptyline (PAMELOR) 10 mg oral capsule Take 2 capsules (20 mg) by mouth at bedtime. Active metoclopramide HCl (REGLAN) 5 mg oral tablet Take 0.5 tablets (2.5 mg) by mouth twice a day as needed. Active Active Problems Problem Noted Date Diagnosed Date Complication of dialysis acc ess insertion, initial encounter 09/28/2024 ESRD (end stage renal disease) on dialysis 09/28 Bleeding 09/27/2024 Social History Tobacco Use Types Packs/Day Years Used Date Smoking Tobacco: Never Smokeless Tobacco: Never Tobacco Cessation:Counseling Given: Not Answered Alcohol Use Standard Drinks/Week Comments Not Currently 0 (1 standard drink = 0.6 oz pur e alcohol) [facility] Utilities Answer Date Recorded In the past 12 months has [facility] [employer], or water [employer] threatened to shut off services in your [...] any time in the past 12 m [facility], were you homeless or living in a senior care (including now)? No 09/27/2024 Sex and Gender [...] Mass Index 25.55 09/27/2024 10:41 PM CDT Plan of Treatment Not on file Procedures Procedure Name Priority Date/Time Associated Diagnosis Comments HEP B SURFACE ANTIGEN Routine 09/28/2024 9:28 AM CDT POTASSIUM STAT 09/28/2024 9:28 AM CDT ABORH CONFIRM (LAB USE ONLY) Routine 09/28/2024 9:28 AM CDT EXTRA TUBE PST Routine 09/28/2024 9:24 AM CDT HEMODIALYSIS Routine 09/28/2024 8:58 AM CDT POCT GLU METER Routine 09/28/2024 7:41 AM CDT HEP B SURFACE ANTIBODY Add On 4:37 AM CDT BASIC METAB PROFILE Routine 09/28/2024 4 :37 AM CDT HEMOGLOBIN Routine 09/28/2024 4:37 AM CDT PARTIAL THROMBOPLASTIN TIME STAT 09/27/2024 7:52 PM CDT PROTIME/INR STAT 09/27/2024 7:52 PM CDT BASIC METAB PROFILE STAT 09/27/2024 7 :52 PM CDT CBC (HGB,HCT,WBC,RBC,PLATEL ET) STAT 09/27/2024 7:52 PM CDT TYPE AND SCREEN STAT 09/27/2024 7:52 PM CDT from Last 3 Months Results * ABORh Confirm (Lab Use Only) (09/28/2024 9:28 AM CDT) Group and Rh O Positive 09/28/2024 10:03 AM CDT [facility] Blood 09/28/2024 9:28 AM CDT 09/28/2024 9:31 AM CDT us Adam Kimble MD BLOOD BANK ORDERABLE Final Res ult Performing Organization Address [facility] de Phone Number [facility] [address] [place] [address] [facility] [address] [place] [address] * (ABNORMAL) Potassium, Serum (09/28/2024 9:28 AM CDT) Potassium 5.5(H) 3.4 - 5.1 mmol/L 09/28/2024 10:[address] [facility] Blood 09/28/2024 9:28 AM CDT 09/28/2024 9:31 AM CDT us Samson Billingsley DO CHEMISTRY ORDERABLE Final Resu lt Performing Organization Address [facility] Phone Number [facility] [address] [place] [address] * Hepatitis B Surface Antigen (09/28/2024 9:28 AM CDT) HEP BS ANTIGEN Non-Reacti ve Non-Reacti ve 09/28/2024 10:[address] [facility] Blood 09/28/2024 9:28 AM CDT 09/28/2024 9:31 AM CDT us Duglas Cunha MD IMMUNOLOGY ORDERABLE Final Resul t Performing Organization Address [facility] de Phone Number [facility] [address] [place] [address] * Extra Tube PST (Lab Use Only) (09/28/2024 9:24 AM CDT) Blood 09/28/2024 9:24 AM CDT 09/28/2024 9:33 AM CDT us Samson Billingsley DO CHEMISTRY ORDERABLE Final Resu lt Performing Organization Address [facility]/ZIP Co de Phone Number [facility] [place] [phone] * POCT Glucose Meter (09/28/2024 7:41 AM CDT) [facility] GLUCOSE WB METER 87 60 - 100 mg/dL 09/28/2024 7:58 AM [facility] Blood 09/28/2024 7:41 AM CDT 09/28/2024 7:58 AM CDT Samson Billingsley DO LAB POINT OF CARE TEST RESULTS Final Result [facility] [place] [id number] * (ABNORMAL) Basic Metabolic Profile (09/28/2024 4:37 AM CDT) Only the most recent of2 resultswithin the time period is included. [facility] Sodium 134(L) 136 - 145 mmol/L 09/28/2024 6:04 AM [facility] Potassium 5.8(H) 3.4 - 5.1 mmol/L 09/28/2024 6:04 AM [facility] Chloride 102 98 - 108 mmol/L 09/28/2024 6:04 AM [facility] Carbon Dioxide 20 20 - 31 mmol/L 09/28/2024 6:04 AM [facility] BUN (Urea Nitro) 41(H) 9 - 23 mg/dL 09/28/2024 6:04 AM [facility] Creatinine 12.16(HH) 0.73 - 1.18 mg/dL 09/28/2024 6:04 AM [facility] Comment:Critical Result(s) C alled at 05:59:28 09/28/2024 to and read back by Mike Robison RN by cruz Thomas GFR (CKD-EPI) 4.49(L) >60.00 mL/min/1. 73m2 09/28/2024 6:04 AM [facility] Comment:Calculation based on the Chronic Kidney Disease Epidemiology Collaboration (CKD-EPI) equation refit without adjustment for race. Glucose 119(H) 74 - 106 mg/dL 09/28/2024 6:[address] [facility] Calcium, Serum 9.2 8.7 - 10.4 mg/dL 09/28/2024 6:[address] [facility] Anion Gap 12.0 0.0 - 15.0 mmol/L 09/28/2024 6:[address] [facility] Blood 09/28/2024 4:37 AM CDT 09/28/2024 4:59 AM CDT us Yazan Graham MD CHEMISTRY ORDERABLE Final Result Performing Organization Address [facility] de Phone Number [address] [phone] * Hepatitis B Surface Antibody (09/28/2024 4:37 AM CDT) HEP BS ATBY QUALITATIVE Reactive 09/28/2024 9:[address] [facility] Comment:>10 mIU/mL. Immune. Blood 09/28/2024 4:37 AM CDT 09/28/2024 4:59 AM CDT us Duglas Cunha MD IMMUNOLOGY ORDERABLE Final Resul t Performing Organization Address [facility] de Phone Number [address] [phone] * (ABNORMAL) Hemoglobin (09/28/2024 4:37 AM CDT) Hemoglobin 10.0(L) 14.0 - 18.0 gm/dL 09/28/2024 5:[address] [facility] Blood 09/28/2024 4:37 AM CDT 09/28/2024 4:59 AM CDT us Yazan Graham MD HEMATOLOGY ORDERABLE Final Resul t Performing Organization Address [facility] Co de Phone Number [facility] [address] [place] [address] * Type & Screen (09/27/2024 7:52 PM CDT) Pathologist [facility] and Rh O Positive 09/27/2024 8:[address] [facility] Antibody Screen Negative 09/27/2024 8:[address] [facility] Blood 09/27/2024 7:52 PM CDT 09/27/2024 7:59 PM CDT us Adam Kimble MD BLOOD BANK ORDERABLE Edited Re sult - Final Performing Organization Address [facility] Co de Phone Number [facility] [address] [place] [address] [facility] [address] [place] [address] * (ABNORMAL) CBC (09/27/2024 7:52 PM CDT) [facility] WBC 10.4 4.3 - 10.8 K/uL 09/27/2024 8:[address] [facility] RBC 3.28(L) 4.60 - 6.20 M/uL 09/27/2024 8:05 PM [facility] Hemoglobin 10.8(L) 14.0 - 18.0 gm/dL 09/27/2024 8:[address] [facility] Hematocrit 32.8(L) 40.0 - 54.0 % 09/27/2024 8:05 PM [facility] MCV 100 80 - 100 fL 09/27/2024 8:[address] [facility] MCH 33 27 - 33 pg 09/27/2024 8:05 PM [facility] MCHC 33 33 - 36 gm/dL 09/27/2024 8:05 PM [facility] RDW 14.2 11.5 - 14.5 % 09/27/2024 8:05 PM CDT [facility] Platelet Count 149(L) 150 - 400 K/UL 09/27/2024 8:[address] [facility] MPV 10.2 6.5 - 12 fL 09/27/2024 8:[address] [facility] Blood 09/27/2024 7:52 PM CDT 09/27/2024 7:59 PM CDT us Adam Kimble MD HEMATOLOGY ORDERABLE Final Res ult Performing Organization Address City/[facility]/ZIP Co de Phone Number [facility] [address] [address] * Protime/INR (09/27/2024 7:52 PM CDT) INR 1.0 0.9 - 1.2 09/27/2024 8:[address] [facility] Blood 09/27/2024 7:52 PM CDT 09/27/2024 7:59 PM CDT us Adam Kimble MD COAGULATION ORDERABLE Final Re sult Performing Organization Address [facility] Co de Phone Number [facility] [place] [address] * (ABNORMAL) PTT (09/27/2024 7:52 PM CDT) PTT 39.6(H) 24.0 - 31.0 sec. 09/27/2024 8:[address] [facility] Blood 09/27/2024 7:52 PM CDT 09/27/2024 7:59 PM CDT Narrative [facility] - 09/27/2024 8:23 PM CDT aPTT Therapeutic Reference Ranges: Heparin protocol: 38 - 75 seconds standard/low dose 43 - 86 seconds high dose Argatroban protocol: 60 - 85 seconds Bivalirudin protocol: 43 - 71 seconds us Adam Kimble MD COAGULATION ORDERABLE Final Re sult [facility] [address] [id number] from Last 3 Months Insurance [address] [place] [address] [facility] MEDICARE ADV[place]AGE [place] [address] Advance Directives For more information, please contact: [phone] * Full Code (Latest Code Status on File) Date Activated Date Inactivated Comments 09/27/2024 9:28 PM 09/28/2024 10:41 PM Question Answer Comments How was code status determined? Patient Care Teams Lace Roller Relationship Specialty Start Date End Date Rosamaria Garcia PA-C [address] [place] [address] PCP - General 09/27/24
--- OUTSIDE RECORDS SUMMARY | 2024-10-31 13:46 | XMS_ITS | Clinical Summary ---
Author Organization [employer] Address [facility] [place] [address] Care Team Providers Care Street Commissioner Name Role Phone Radha Baires RULING MACHINE SET UP OPERATOR Unavailable Unavailable Rosamaria Dunn Unavailable Unavailable Alison Otto POLICE ARTIST Unavailable [phone] Christopher Collins MBBS Unavailable [phone] Nik Flores SUBACUTE NURSE Unavailable [phone] Rosamaria Garcia Primary Care Provider [phone] Allergies Active Allergy Reactions Criticality Noted Date [...] ng. 30 Tablet 2 03/01/20 24 Active dicyclomine [...] 3 07/25/19 25 Active metoclopramide 5 mg tabletIndications: Gastroparesis TAKE 1/2 TABLET (2.5MG) BY MOUTH UP TO TWICE A DAY BEFORE MEALS IF NEEDED FOR SEVERE ABDOMINAL PAIN/NAUSEA/V OMITING 30 Tablet 3 08/31/19 25 Active durable medical equipment (DME)Indications:E SRD on hemodialysis (HC),Spinal stenosis of lumbar region without neurogenic claudication,Lumba r foraminal stenosis,Periphera l polyneuropathy Electric Bike to Commute 1 Each 09/21/19 25 Active HYDROmorphone (Dilaudid) 2 mg tabletIndications: Post-operative pain Take 1 Tablet (2 mg) by mouth 2 times daily if needed for Pain. Take a dose in place of oxycodone for acute pain. 10 Tablet 10/05/19 25 Active oxyCODONE 10 mg tabletIndications: Controlled substance agreement signed,Lumbar foraminal stenosis,Chronic pain of both shoulders,Chronic thoracic back pain, unspecified back pain laterality Take 1.5 Tablets (15 mg) by mouth four times daily. 180 Tablet 10/28/19 25 Active oxyCODONE 10 mg tabletIndications: Controlled substance agreement signed,Lumbar foraminal stenosis,Chronic pain of both shoulders,Chronic thoracic back pain, unspecified back pain laterality Take 1.5 Tablets (15 mg) by mouth four times daily. 180 Tablet 09/29/19 25 025 Discontin ued(Reord er (E-cancel not [...] & Plan: Bilateral great toe Stable Encouraged engineering operations leader consult and patient agree Type 2 diabetes [...] nl 07/2013 Anemia associated with nutritional deficiency 08/01/1905/11/2023 Overview (09/21/2017): Overview: Overview: B12 and Folate [...] M, W, F with Dr. Brown in [place]. Dependence on renal dialysis 06/08/2011 08/23/2019 Overview (09/21/2017): Overview: Overview: Dialysis M, W, F with Dr. Brown in [place]. ACP (advance care planning) 03/14/2011 05/11/2023 Overview (03/14/2011): Patient has identified Health Care Agent(s): Patient verbally identifies his significant other as health care decision maker however, she does not have a phone number at present. To contact Patient's family/SO contact can be made with Abhay Tovar (brother in law) [phone] and Thomas Carty [phone] Friend Patient has Advance Care Plan Documents [...] Encounters Date Type Department Care Team Description 10/31/2024 Telephone [facility] [address] [place] [address] Rosamaria Garcia PA Concerns (abdominal pain) 10/22/2024 Telephone [facility] [address] [place] [address] Rosamaria Garcia PA Questions (oxyCODONE 10 mg tablet /) 10/18/2024 Telephone [facility] [address] [place] [phone] Martine Calderon, coin machine supervisor Eval 10/16/[address] [address] Rosamaria Garcia PA electric chair prescription 10/04/[address] [address] Rosamaria Garcia PA Medication Management (Pain medication) 10/03/[address] [address] Rosamaria Garcia PA Medication Management 10/01/[address] [address] Rosamaria Garcia PA Questions (oxyCODONE 10 mg tablet) 09/25/[address] [address] Rosamaria Garcia PA Refill Request (oxyCODONE 10 mg tablet/) 09/20/[address] [address] Rosamaria Garcia PA Questions 09/13/2024 Nurse Triage [address] [address] Rosamaria Garcia PA High Blood Pressure 09/07/[address] [address] Rosamaria Garcia PA Medication Management (Blood pressure meds) 09/06/2024 Telephone [facility] [address] [place] [phone] Jovanna Sands, coin machine supervisor Eval (Follow up) 09/04/2024 9:50 AM CDT Office Visit [facility] [address] [place] [address] Rosamaria Garcia PA ER Follow up (08/23 abdominal pain) 09/04/2024 Travel 08/28/2024 Refill [facility] [address] [facility] [facility] [address] Rosamaria Garcia PA Refill Request (Metoclopramide) 08/28/2024 Refill [facility] [address] [facility] [address] Rosamaria Garcia PA Refill Request (Oxycodone ) 08/23/2024 Orders Only [facility] Scanner 1 scan: (1-Ord) WILLIAMS, CT ABDOMEN PELVIS WO CON, 08/23/2024 08/15/2024 Telephone [facility] Providers [address] [phone] Jovanna Sands, coin machine supervisor Eval from Last 3 Months Immunizations Immunization Administration Dates Next Due COVID-19 vaccine (Moderna 100mcg/0.5mL) JOSE L HUYNH 06/23/2020,05/30/2020 Hepatitis B (Adult) 09/17/2021,04/03/2021,2020 Influenza RIV4 [...] on file Legal Sex Male 5:23 AM EXHAUST EMISSIONS INSPECTOR Gender Identity Not on file Sexual Orientation Not on file Occupation Industry Job Start Date Job End Date unempolyed Not on file Not on file Not on file Obstetrics History Last Filed Vital Signs Vital Sign Reading Time Taken Comments Blood Pressure 184/96 09/04/2024 9:40 AM CDT Pulse 77 09/04/2024 9:40 AM CDT Temperature 36.3 C (97.4 F) 07/06/2024 12:00 AM EXHAUST EMISSIONS INSPECTOR Respiratory Rate 18 07/06/2024 4:00 AM EXHAUST EMISSIONS INSPECTOR Oxygen Saturation 100% 09/04/2024 9:40 AM CDT Inhaled Oxygen Concentration - - Weight 61.7 kg (136 lb) 09/04/2024 9:40 AM CDT Height 166.4 cm (5' 5.5) 07/05/2024 1:39 PM EXHAUST EMISSIONS INSPECTOR Body Mass Index 22.29 07/05/2024 1:39 PM EXHAUST EMISSIONS INSPECTOR Plan of Treatment Upcoming Encounters Date Type Department Care Team (Latest Contact Info) Description 11/29/2024 7:20 AM CDT Hospital Encounter [facility] [address] [place] [address] Hannah Armstrong MD [address] [place] [address] 11/29/2024 8:20 AM CDT - 11/29/2024 9:05 AM CDT Surgery [facility] [address] [place] [address] [place] [address] [place] [phone] ESOPHAGOGASTRODUODENOSCOPY Scheduled Procedures Name Priority Associated Diagnoses Date/Ti me ESOPHAGOGASTRODUODENOSCOPY Tier 2 colon polyps, nausea vomiting 11/29/2024 8:20 AM CDT COLONOSCOPY Tier 2 colon polyps, nausea vomiting 11/29/2024 8:20 AM CDT Health Maintenance Due Date Last [...] 08/29/2024 08/30/2023, 08/24/2023, 08/23/2023, Additional history exists Influenza Vaccine (#1) 2024 , 02/23/2023, 02/05/2022, Additional history exists BMI (ht and wt on same day) for age 18+ 07/03/2025 07/03/2024, 05/29/2024, 10/21/2023, Additional history exists Lipids for age 45-75 04/17/2029 04/17/2024, 08/24/2023, 10/01/2022, Additional history exists Colonoscopy through age 75 12/15/203212/15, 02/04/2017, 10/25/2016, Additional history exists Hepatitis C screening for ag e 18-79 Completed 12/26/2021 HIV for age 15-65 Completed 10/01/2022 Goals Goal Patient Goal Type Associated Problems Recent Progress Patient-Stated? Author BLOOD PRESSURE - MAINTAINS BP less than 140/90 Blood Pressure No Juan Francisco Card MD Autogenerated Goal Care Plan Autogenerated Problem No Mychart, Provider Medical Devices Implanted Type Area Senior Game Designer Device Identifier Shelf Expiration Date Model / Serial / Lot Graft Vasc 8mm 40cm Propaten Thin Wall - [id number] Implanted:Qty: 1 on 04/10/2015 by Ash Zambrano MD at [facility] Left: Arm [employer] 10/23/2018 [id number] # / / Power Port Isp Mri 6fr [id number] - Stan Only - [id number] Implanted:Qty: 1 on 01/27/2017 by Kiet Hernandez DO at [facility] N/A: Chest [employer] 03/01/2018 [id number] / / [id number] Description:PowerPort isp M. R.I. Implantable Port Sys Ancr Sut 4.75mm Biocomposite - [id number] Implanted:Qty: 1 on 10/27/2023 by Milind Arroyo MD at [facility] Right: Shoulder [employer] 06/30/2027 [id number] CSL / / [id number] Procedures Procedure Name Priority Date/Time Associated Diagnosis Comments AMB CONSULT TO GASTROENTEROLOGY Routine 09/18/2024 7:38 PM CDT Gastroparesis SCAN-CT INTERPRETATION 12:00 AM CDT LIPID PANEL W REFLEX MEASURED LDL Routine 04/17/2024 10:16 AM EXHAUST EMISSIONS INSPECTOR Type 2 diabetes mellitus with chronic kidney [...] Other us Scanner OTHER Final Result * LIPID PANEL W REFLEX MEASURED LDL (04/17/2024 10:16 AM EXHAUST EMISSIONS INSPECTOR) CHOLESTEROL, TOTAL 145 <200 mg/dL [facility] HDL CHOLESTEROL 64 > OR = 40 mg/dL [facility] TRIGLYCERIDES 71 <150 mg/dL [facility] LDL-CHOLESTEROL 66 mg/dL (calc) [facility] Comment: Reference range: <100 Desirable range <100 mg/dL for primary prevention; <70 mg/dL for patients with CHD or diabetic patients with > or = 2 CHD risk factors. LDL-C is now calculated using the Avi calculation, which is a validated novel method providing better accuracy than the Friedewald equation in the estimation of LDL-C. Parrish SS et al. JULIEN. 2013;310(67): 0787-5761 (http://education.[place]/faq/GOD975) CHOL/HDLC RATIO 2.3 <5.0 (calc) [facility] NON HDL CHOLESTEROL 81 <130 mg/dL (calc) [facility] Comment: For patients with diabetes plus 1 major ASCVD risk factor, treating to a non-HDL-C goal of <100 mg/dL (LDL-C of <70 mg/dL) is considered a therapeutic option. Blood BLOOD SPECIMEN / Unknown 04/17/2024 10:16 AM EXHAUST EMISSIONS INSPECTOR 04/17/2024 10:16 AM EXHAUST EMISSIONS INSPECTOR Rosamaria OBRIEN CHEMISTRY Final Resu lt SocialDefender [facility] [address] [place] [address], Runner [facility] [address] [place] [address] * COLONOSCOPY (12/15/2022 3:12 PM CDT) 12/15/2022 3:12 PM CDT Narrative Transcriptions Arthur Sánchez MD - 12/15/2022 4:16 PM CDT [facility] Patient Name: Vik Thakkar Procedure Date: 12/15/2022 Gender: Male Date of : 1970 Admit Type: Outpatient Procedure: Colonoscopy Proceduralist: MD Bud Garcia [facility] Indications/Pre-Op Diagnosis: High risk colon cancer surveillance:Personal history of colon cancer Medications: Monitored Anesthesia Care Procedure Description: The patient had risks, benefits and alternatives explained to andgave informed consent. The patient had a stable cardiopulmonary status and judged an adequate candidate for conscious sedation. The endoscope [id number] was passed through the anus andadvanced to [...] 4TH GENERATION (10/01/2022 3:44 PM CDT) Pathologist [facility] HIV Scr 4th Gen Non Reactive Non Reactive 10/05/2022 1:[address] [facility] ([facility]) Comment: HIV Negative HIV-1/HIV-2 antibodies and HIV-1 p24 antigen were NOT detected. There is no laboratory evidence of HIV infection. Blood BLOOD SPECIMEN / Unknown Venipuncture / Unknown 10/01/2022 3:44 PM CDT 10/01/2022 3:46 PM CDT Narrative [facility] - 10/05/2022 1:09 PM CDT Performed at: [address] [place] [id number] Security Strategist: Sudheer Yanez MD, Phone: [phone] us Gavin [facility]EN LABORATORY Fin al Result [facility] ([facility]) [address] [place] [address], * ANTI HCV (12/26/2021 5:58 AM CDT) Pathologist [facility] HEPATITIS C ANTIBODY Non-React fuentes Non-React fuentes 12/28/2021 5:08 PM CDT [facility] Comment:Antibodies to HCV no t detected; does not exclude the possibility of exposure to HCV. Blood BLOOD SPECIMEN / Unknown Venipuncture / Unknown 12/26/2021 5:58 AM CDT 12/26/2021 6:33 AM CDT us Gavin OBRIEN SEND OUTS Fin al Result [facility] 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 [...] presenting with C diff symptoms CDI + 18 + recurrent episodes 06/02/2020 06/02/2020 Insurance MEDICARE PART A HB ONLY MEDICA ACCESSABILITY SOLUTION KIDNEY ACQUISITION CTR HB ONLY KIDNEY ACQUISITION CTR PB ONLY Advance Directives [...] Code Status Discussion: Reviewed Preferences Care Teams Street Commissioner Relationship Specialty Start Date End Date Rosamaria Garcia PA [facility] [place] [address] PCP - General Physician Airport Location Manager 12/21/22 Radha Baires NP Psychiatry Nurse Practitioner 07/02/16 Rosamaria Dunn Cancer Nurse Coordinator Registered Nurse 11/15/16 Alison Otto, [facility] [address] [place] [address] [facility] Production Coordinator 01/18/17 Christopher Collins MBBS [address] [place] [address] Oncology Oncology 01/11/17 Nik Flores [address] [address] Ocean Import Representative 01/28/17
--- OUTSIDE RECORDS SUMMARY | 2024-10-31 13:46 | XMS_ITS | Data Portability ---
Author Organization [place] - [facility], [facility] Address [address] [place] [address] Care Team Providers Care Junior Account Manager Name Role Phone BRITTA RAMOS Primary Care Provider Assessment No assessment recorded. Plan of Treatment Reminders Order Date Submit Date Provider Last Modified By Organization Details Last Modified Time Details Appointments None recorded. Lab urinalysis , dipstick 2023 024 [email or web address] 9 [facility], [address], [address], [place], [address], 11:43:13 Referral None recorded. Procedures None recorded. Surgeries None recorded. Imaging None recorded. Medication Orders None recorded. Patient TargetsNo targets recorded. Patient Instructions Encounter Date Encounter Id Patient Instructions Last Modified By Organization Details Last Modified Time 09/29/2023 [id number] will set up for cysto possible bladder biopsy/fulguratio n. [email or web address] Not available 09/29/2023 11:42:13 Reason for Referral None Reported. Results Created Date Observation Date Name Description Value Unit Range Abnormal Flag Note LastModifiedBy Organization Detail LastModifiedTime 09/29/1909/29/2023 urina lysis , dipst ick pH-Status 8.5 Not Available [facility] [address], [place], [address], 09/28/2023 18:15:50 09/29/19 24 09/29/2023 urina lysis , dipst ick Blood-Status Small Not Available [facility] [address] [facility], [place], [address], 09/28/2023 18:15:50 Result Notes None recorded. Procedures Surgical History Date Name Laterality Status Provider Name and Address Organization Details Recorded Time Eye surgery follow-up add-on completed Juan Francisco Don MD [address] [place] [address],[address], [place], [address], [facility] 09/29/2023 11:31:24 Imaging Results None recorded. Procedure Notes None recorded. Medical Equipment None Reported. Allergies Allergen ID Allergen Name Allergen Category Reaction Reaction Severity Criticality Documentation Date Start Date Code Code System Note Provider Name and Address Organization Details Recorded Time 753113 Product containin g penicilli n (product) medicatio n Not available Not available Not available 09/29/2023 38819 8001 SNOMED Juan Francisco Don MD [address] [place] [phone], [facility] 4 11:26:41 202143 lisinopri l medicatio n Not available Not available Not available 09/29/2023 08284 RxNorm Juan Francisco Don MD [address] [place] [address], [facility] 4 11:26:45 543651 Dilaudid medicatio n Not available Not available Not available 09/29/2023 51772 3 RxNorm Juan Francisco Don MD [address] [place] [address], [facility] 4 11:26:56 Medications Name Sig Start Date [...] Updated DateTime 09/29/2023 165.1 cm 23.8 kg/m2 96495.71 g Juan Francisco Don MD [address] [place] [address], [phone] 09/29/2023 11:26:30 Social History Question Answer Notes LastModified by Organizat ion Details LastModified Time Tobacco Smoking Status Former Smoker Juan Francisco Don MD [address] [place] [address], [phone] 09/29/2023 11:30:13 What Is Your Level Of Caffeine Consumption? Occasional [email or web address] Information not available 09/29/2023 When Did You Quit Smoking? 1-5yearssinjuve moreno Information not available 09/29/2023 What Was The Date Of Your Most Recent Tobacco Screening? 09/29/2023 Information not available 09/29/2023 Sex: Unknown Functional Status Question Answer Note LastModified by Organization D etails LastModified Time What is your level of alcohol consumption? None [email or web address] Information not available 09/29/2023 Mental Status None recorded. Family History Relationship Description Onset Age of this Age Resolved Age Notes LastModified by Organization Details LastModified Time Mother Family history of malignant neoplasm [email or web address] Not available 09/28 11:29:42 Mother Family history of diabetes mellitus [email or web address] Not available 09/28 11:29:52 Sister Family history of malignant neoplasm [email or web address] Not available 09/28 11:29:42 Sister Family history of diabetes mellitus [email or web address] Not available 09/28 11:29:52 Medical History Condition Response Diabetes N Sexually Transmitted Infection N Other N Bleeding Disorder N High Blood Pressure N Kidney Stones N High Cholesterol N GERD/Acid Reflux N Heart Disease N Cancer Y Lung Disease N Depression N Past Encounters Encounter ID Performer Location Encounter Start Date Encounter Closed Date Diagnosis/Indication Diagnosis SNOMED-CT Code Diagnosis ICD10 Code Diagnosis Note [id number] Juan Francisco Don MD [facility] [address] [facility] [facility],[address] [place] [address] 09/29/2023 11:15:44 10/06/2023 14:11:40 Microscopic hematuria 478452863 R31.29 bladder wall thickening . Health Concerns Section Related Observation LastModified by Organization Detai ls LastModified Time None Recorded Concern Status LastModified by Organization Details LastModified Time None Recorded Advance Directives Directive None Recorded Payers Insurance Date Sequence Insurance Name Policy Number Policy [place] Covered Member ID [place] Member ID Guarantor Name 07/10/2024 1 [place] [employer] Vik Thakkar [id number] Vik Thakkar 05/22/2024 1 MEDICA - MEDICA GOVERNMENT PROGRAMS (MEDICAID REPLACEMENT - HMO) Vik Engle [id number] Vik Thakkar 05/22/2024 1 [place] [employer] Ting Engle [id number] RaúlTaylor Thakkar 05/22/2024 1 [place] [employer] Vik Thakkar [id number] Vik Thakkar 06/05/2024 2 [place] Vik Robledoes [id number] Vik Thakkar 05/22/2024 1 [place] [employer] Vik Engle [id number] Vik Thakkar 07/10/2024 2 MEDICA CHOICE [facility] (MEDICAID HMO) [id number] Vik Thakkar [id number] Vik Thakkar 07/10/[address] [facility] (MEDICARE REPLACEMENT/ADVA NTAGE - PPO) [id number] Vik Thakkar [id number] Vik Thakkar Notes Date Note Type Note [...] kidneys. CRF from MASON Don MD [address] [facility],[address] [facility], [place], [address], [facility] 09/29/2023 11:43:29
--- OUTSIDE RECORDS SUMMARY | 2024-10-31 13:46 | XMS_ITS | Encounter Summary ---
Author Organization [facility] Address [address] [facility] [place] [address] Care Team Providers Care B2B Appointment Setter Name Role Phone Courtney Guardado MD Primary Care Provider [phone] Gavin Lombardo Primary Care Provi moses Kedar Dang MD Unavailable [phone] Rosamaria Garcia PA-C Primary Care Provider [phone] Encounter Details Date Type Department Care Team (Late st Contact Info) Description 05/24/2018 External Order Results [facility] [address] [place] [address] Outside, Provider Social History Tobacco Use Types Packs/Day Years Used Date Smoking Tobacco: Every Day Cigarettes 0.5 27 Smokeless Tobacco: Never Alcohol Use Standard Drinks/Week Comments Yes 0 (1 standard drink = 0.6 oz pur e alcohol) occ. 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 Gender Identity Not on file Sexual Orientation Not on file documented as of this encounter Plan of Treatment Not on file documented as of this encounter Visit Diagnoses Not on filedocumented in this encounter Care Teams B2B Appointment Setter Relationship Specialty Start Date End Date Courtney Guardado MD PCP - General 03/09/12 07/30/20 Gavin Lombardo PA PCP - General Family Practice 07/31/20 12/14/23 Rosamaria Garcia PA-C [address] [place] [address] PCP - General 12/15/23 [place] [address] [place] [address] Assigned Gastroenterology Provider 01/29/23 08/21/24 documented as of this encounter
--- OUTSIDE RECORDS SUMMARY | 2024-10-31 13:46 | XMS_ITS | Encounter Summary ---
Author Organization [facility] Address [address] [place] [address] Care Team Providers Care Make Up Operator Helper Name Role Phone Gavin Lombardo Primary Care Provi moses Unavailable Kedar Tello MD Unavailable [phone] Rosamaria Garcia PA-C Primary Care Provider [phone] Encounter Details Date Type Department Care Team (Late st Contact Info) Description 08/24/2021 External Order Results [facility] [address] [place] [address] Outside, Provider Social History Tobacco Use Types Packs/Day Years Used Date Smoking Tobacco: Every Day Cigarettes 0.5 27 Smokeless Tobacco: Never Alcohol Use Standard Drinks/Week Comments Yes 0 (1 standard drink = 0.6 oz pur e alcohol) occ. 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
--- OUTSIDE RECORDS SUMMARY | 2024-10-31 13:46 | XMS_ITS | Encounter Summary ---
Author Organization [facility] Address [address] [place] [address] Care Team Providers Care Sales Marketing Director Name Role Phone Rosamaria Garcia PA-C Primary Care Provider + Encounter Details Date Type Department Care Team (Latest Contact Info) Description 09/27/2024 Travel Social History Tobacco Use Types Packs/Day Years Used Date Smoking Tobacco: Never Smokeless Tobacco: Never Alcohol Use Standard Drinks/Week Comments Not Currently 0 (1 standard drink = 0.6 oz pur e alcohol) [facility] Utilities Answer Date Recorded In the past 12 months has [employer], gas, oil, or water [employer] threatened to shut off services in your [...] any time in the past 12 m [facility], were you homeless or living in a mcfp (including now)? No 09/27/2024 Sex and Gender Information Value Date Recorded Sex Assigned at Not on file Legal Sex Male 4:52 PM CDT Gender Identity Not on file Sexual Orientation Not on file documented as of this encounter Plan of Treatment Not on file documented as of this encounter Visit Diagnoses Not on filedocumented in this encounter Care Teams Sales Marketing Director Relationship Specialty Start Date End Date Rosamaria Garcia PA-C [address] [place] [address] PCP - General 09/27/24 documented as of this encounter
--- OUTSIDE RECORDS SUMMARY | 2024-10-31 13:46 | XMS_ITS | Clinical Summary ---
Author Organization [facility] Address [address] [place] [address] Care Team Providers Care Derrick Follower Name Role Phone Rosamaria Garcia PA-C Primary Care Provider + Allergies Active Allergy Reactions Criticality Noted Date [...] renal disease) on dialysis 09/28 Bleeding 09/27/2024 Encounters Date Type Department Care Team Description 09/27/2024 7:21 PM CDT - 09/28/2024 4:41 PM CDT Hospital Encounter W2 [address] [place] [address] Adam Kimble MD Malik, Saad S, MD Varghese, Alvin, DO Bleeding Discharge Disposition: Returning Home/Self Care 09/27/2024 Travel from Last 3 Months Social History Tobacco Use Types Packs/Day Years Used Date Smoking Tobacco: Never Smokeless Tobacco: Never Tobacco Cessation:Counseling Given: Not Answered Alcohol Use Standard Drinks/Week Comments Not Currently 0 (1 standard drink = 0.6 oz pur e alcohol) [facility] Utilities Answer Date Recorded In the past 12 months has [facility] [employer], [employer], or water [employer] threatened to shut off services in your [...] any time in the past 12 m [facility], were you homeless or living in a half-way (including now)? No 09/27/2024 Sex and Gender [...] 09/27/2024 10:41 PM CDT Plan of Treatment Health Maintenance Due Date Last Done Comments Colonoscopy 1971 Eye Exam 1971 HgbA1C 1971 Anxiety Screening (CHIQUIS-2) 01/03/1972 Depression Assessment (PHQ-2) 01/03/1972 Yearly Review of HCD 2021 Zoster Vaccine (1 of 2) 2021 Adult Tetanus Booster 10/27/2021 10/28/2011 COVID-19 Vaccine (3 - season) 2024 06/23/2020, 05/30/2020 Pneumococcal 50+ Years (4 of 4 - PCV20 or PCV21) 06/13/2024 06/13/2019, 05/26/2018, 03/17/2011 Influenza Vaccine (#1) 2024 , 02/23/2023, 02/05/2022, Additional history exists Creatinine 09/28/2025 09/28/2024, 05/12/2024, 07/13/2024, Additional history exists RSV Vaccines (1 - 1-dose 75+ series) 2046 Hepatitis C Screening Completed 12/26/2021 Meningococcal B Vaccine Aged Out No l onger eligible based [...] (Lab Use Only) (09/28/2024 9:28 AM CDT) [facility] and Rh O Positive 09/28/2024 10:03 AM CDT [facility] Blood 09/28/2024 9:28 AM CDT 09/28/2024 9:31 AM CDT us Adam Kimble MD BLOOD BANK ORDERABLE Final Res ult Performing Organization Address [facility] Co de Phone Number [facility] [id number] [place] [address] * (ABNORMAL) Potassium, Serum (09/28/2024 9:28 AM CDT) [facility] Potassium 5.5(H) 3.4 - 5.1 mmol/L 09/28/2024 10:33 AM CDT [facility] Blood 09/28/2024 9:28 AM CDT 09/28/2024 9:31 AM CDT us Samson Billingsley DO CHEMISTRY ORDERABLE Final Resu lt Performing Organization Address City/[facility]/ZIP Co de Phone Number [address] [address] * Hepatitis B Surface Antigen (09/28/2024 9:28 AM CDT) HEP BS ANTIGEN Non-Reacti ve Non-Reacti ve 09/28/2024 10:59 AM CDT [facility] Blood 09/28/2024 9:28 AM CDT 09/28/2024 9:31 AM CDT Duglas Cunha MD IMMUNOLOGY ORDERABLE Final Resul t Performing Organization Address City/[facility]/ZIP Co de Phone Number [facility] [address] [place] [address] * Extra Tube PST (Lab Use Only) (09/28/2024 9:24 AM CDT) Blood 09/28/2024 9:24 AM CDT 09/28/2024 9:33 AM CDT Samson Billingsley DO CHEMISTRY ORDERABLE Final Resu lt Performing Organization Address [facility]/ZIP Co de Phone Number [facility] [address] [place] [address] * POCT Glucose Meter (09/28/2024 7:41 AM CDT) GLUCOSE WB METER 87 60 - 100 mg/dL 09/28/2024 7:58 AM CDT [facility] Blood 09/28/2024 7:41 AM CDT 09/28/2024 7:58 AM CDT Samson Billingsley DO LAB POINT OF CARE TEST RESULTS Final Result Performing Organization Address [facility]/ZIP Co de Phone Number [facility] [address] [place] [address] * (ABNORMAL) Basic Metabolic Profile (09/28/2024 4:37 AM CDT) Only the most recent of2 resultswithin the time period is included. Sodium 134(L) 136 - 145 mmol/L 09/28/2024 6:04 AM [facility] Potassium 5.8(H) 3.4 - 5.1 mmol/L 09/28/2024 6:04 AM [facility] Chloride 102 98 - 108 mmol/L 09/28/2024 6:04 AM [facility] Carbon Dioxide 20 20 - 31 mmol/L 09/28/2024 6:04 AM [facility] BUN (Urea Nitro) 41(H) 9 - 23 mg/dL 09/28/2024 6:04 AM [facility] Creatinine 12.16(HH) 0.73 - 1.18 mg/dL 09/28/2024 6:04 AM [facility] Comment:Critical Result(s) C alled at 05:59:28 09/28/2024 to and read back by Mike Robison RN by cruz Thomas GFR (CKD-EPI) 4.49(L) >60.00 mL/min/1. 73m2 09/28/2024 6:04 AM [facility] Comment:Calculation based on the Chronic Kidney Disease Epidemiology Collaboration (CKD-EPI) equation refit without adjustment for race. Glucose 119(H) 74 - 106 mg/dL 09/28/2024 6:04 AM [facility] Calcium, Serum 9.2 8.7 - 10.4 mg/dL 09/28/2024 6:04 AM [facility] Anion Gap 12.0 0.0 - 15.0 mmol/L 09/28/2024 6:04 AM [facility] Blood 09/28/2024 4:37 AM CDT 09/28/2024 4:59 AM T us Yazan Graham MD CHEMISTRY ORDERABLE Final Result [facility] [address] [place] [address] * Hepatitis B Surface Antibody (09/28/2024 4:37 AM CDT) HEP BS ATBY QUALITATIVE Reactive 09/28/2024 9:35 AM CDT [facility] Comment:>10 mIU/mL. Immune. Blood 09/28/2024 4:37 AM CDT 09/28/2024 4:59 AM CDT us Duglas Cunha MD IMMUNOLOGY ORDERABLE Final Resul t Performing Organization Address City/[facility]/ZIP Co de Phone Number [facility] [address] [facility] [place] [address] * (ABNORMAL) Hemoglobin (09/28/2024 4:37 AM CDT) [facility] Hemoglobin 10.0(L) 14.0 - 18.0 gm/dL 09/28/2024 5:06 AM CDT [facility] Blood 09/28/2024 4:37 AM CDT 09/28/2024 4:59 AM CDT us Yazan Graham MD HEMATOLOGY ORDERABLE Final Resul t Performing Organization Address City/[facility]/ZIP Co de Phone Number [address] [place] [address] * Type & Screen (09/27/2024 7:52 PM CDT) Pathologist [facility] and Rh O Positive 09/27/2024 8:54 PM CDT [facility] Antibody Screen Negative 09/27/2024 8:54 PM CDT [facility] Blood 09/27/2024 7:52 PM CDT 09/27/2024 7:59 PM CDT us Adam Kimble MD BLOOD BANK ORDERABLE Edited Re sult - Final Performing Organization Address City/[facility]/ZIP Co de Phone Number [facility] [address] [facility] [place] [address] [place] [address] * (ABNORMAL) CBC (09/27/2024 7:52 PM CDT) WBC 10.4 4.3 - 10.8 K/uL 09/27/2024 8:05 PM T [facility] RBC 3.28(L) 4.60 - 6.20 M/uL 09/27/2024 8:05 PM T [facility] Hemoglobin 10.8(L) 14.0 - 18.0 gm/dL 09/27/2024 8:05 PM T [facility] Hematocrit 32.8(L) 40.0 - 54.0 % 09/27/2024 8:05 PM T [facility] MCV 100 80 - 100 fL 09/27/2024 8:05 PM T [facility] MCH 33 27 - 33 pg 09/27/2024 8:05 PM T [facility] MCHC 33 33 - 36 gm/dL 09/27/2024 8:05 PM T [facility] RDW 14.2 11.5 - 14.5 % 09/27/2024 8:05 PM [facility] Platelet Count 149(L) 150 - 400 K/UL 09/27/2024 8:05 PM [facility] MPV 10.2 6.5 - 12 fL 09/27/2024 8:05 PM [facility] Blood 09/27/2024 7:52 PM CDT 09/27/2024 7:59 PM CDT us Adam Kimble MD HEMATOLOGY ORDERABLE Final Res ult [facility] [address] [address] * Protime/INR (09/27/2024 7:52 PM CDT) INR 1.0 0.9 - 1.2 09/27/2024 8:23 PM T [facility] Blood 09/27/2024 7:52 PM CDT 09/27/2024 7:59 PM CDT Adam Kimble MD COAGULATION ORDERABLE Final Re sult Performing Organization Address [facility] Co de Phone Number [facility] [address] [place] [address] * (ABNORMAL) PTT (09/27/2024 7:52 PM CDT) PTT 39.6(H) 24.0 - 31.0 sec. 09/27/2024 8:23 PM CDT [facility] Blood 09/27/2024 7:52 PM CDT 09/27/2024 7:59 PM CDT Narrative [facility] - 09/27/2024 8:23 PM CDT aPTT Therapeutic Reference Ranges: Heparin protocol: 38 - 75 seconds standard/low dose 43 - 86 seconds high dose Argatroban protocol: 60 - 85 seconds Bivalirudin protocol: 43 - 71 seconds Adam Kimble MD COAGULATION ORDERABLE Final Re sult Performing Organization Address [facility] Co de Phone Number [facility] [address] [place] [address] from Last 3 Months Insurance [address] [place] [address] [facility] [facility] MEDICARE ADVANTAGE MEDICA SNBC/MSC Advance Directives For more information, please contact: [phone] * Full Code (Latest Code Status on File) Date Activated Date Inactivated Comments 09/27/2024 9:28 PM 09/28/2024 10:41 PM Question Answer Comments How was code status determined? Patient Care Teams Derrick Follower Relationship Specialty Start Date End Date Rosamaria Garcia PA-C [address] [place] [address] PCP - General 09/27/24
--- OUTSIDE RECORDS SUMMARY | 2024-10-31 13:46 | XMS_ITS | Clinical Summary ---
Author Organization [place] Address [address] [facility] [place] [address] Care Team Providers Care Senior Business Consultant Name Role Phone Rosamaria Garcia PA-C Primary Care Provider [phone] Allergies Active Allergy Reactions Criticality Noted Date [...] mg by mouth every morning Active B ouvolpy-U-ghpkd acid (NEPHROCAPS) 1 MG capsule Take 1 [...] daily as needed for severe pain Active Family History Medical History Relation Comments Diabetes [...] on file Legal Sex Male 5:19 AM [employer] Gender Identity Not on file Sexual [...] VISIT 09/17/2022 09/17/2021 COVID-19 VACCINE (3 - season) 2024 06/23/2020, 05/30/2020 PHQ-2 (once per calendar year) 2024 01/18/2023 PNEUMOCOCCAL VACCINE 50+ YEARS (4 of 4 - PCV20 or PCV21) 06/13/2024 06/13/2019, 05/26/2018, 03/17/2011 BMP 07/13/2025 07/13/2024, 0405/2023, 01/04/2023 COLONOSCOPY 12/15/2032 12/15/2022, 10/09/2016, 10/25/2016, Additional history exists COLORECTAL CANCER SCREENING [...] Associated Diagnosis Comments BASIC METABOLIC PANEL STAT 07/13/2024 2:45 PM CDT from Last 3 Months or Most Recently Relevant to Health Maintenance Results * (ABNORMAL) Basic metabolic panel (07/13/2024 2:45 [...] 3:29 PM CDT [facility] Comment:eGFR calculated 2020 CKD-EPI equation. Calcium 10.0 8.8 - 10.4 mg/dL 07/13/2024 3:29 PM CDT [facility] Glucose 79 70 - 99 mg/dL 07/13/2024 3:29 PM CDT [facility] Blood BLOOD SPECIMEN / Unknown Vascular Access Assisted / Unknown 07/13/2024 2:45 PM CDT 07/13/2024 2:45 PM CDT us Dax Lorenz PA-C LAB - BLOOD ORDERAB LES Final Result LABORATORY [facility] [address] [facility] (1st floor, no room number) [place] [address], [facility] from Last 3 Months or Most Recently Relevant to Health Maintenance Insurance MEDICA ACCESS ABILITY DE [employer] MEDICARE ADVANTAGE [employer] ACCESS ABILITY DE [employer] MEDICARE ADVANTAGE Care Teams Senior Business Consultant Relationship Specialty Start Date End Date Rosamaria Garcia PA-C [address] [place] [address] PCP - General 12/15/23
[2024-10-31 14:02] VITALS: BP 172/90; PULSE 73; RESP 18; TEMP 36.8; O2SAT 99; BMI 22.7
--- NOTE | 2024-10-31 14:11 | ED.GENADULT ---
HPI - General Adult General Chief complaint: Diarrhea Stated complaint: R side pains, diarrhea Time Seen by Provider: 10/31/24 14:08 History of Present Illness HPI narrative: Patient here today with one week of generalized abdominal pain and diarrhea. States that he has had 7 bowel movements so far today. History of cdiff (fecal transplant), gastroparesis and follows with [facility]. He missed dialysis today and had to end the dialysis runs early last week . Also having some nausea. 54-year-old man presenting to the emergency department with concern of abdominal pain and diarrhea. No hematochezia is described. He has had 2 weeks of generalized abdominal pain but admits that for years has had abdominal pain with any bowel movements and nobody can tell him why. Today though has recurrence of diarrhea; watery stools. Does have a history of Clostridium difficile colitis and a year ago or so did have a fecal transplant. Receives care through [facility]. Also has renal failure necessitating 3 times a week dialysis. Over the last 2 weeks due to increased abdominal pain he has cut his dialysis runs short only going to hours as opposed to the usual 3. Last run was 2 hours 2 days ago. His oxycodone has been helping his pain. The diarrhea prompts concern and the visit here today. A few weeks ago did have replacement of his dialysis fistula into the right forearm. Has remained a little puffy and wears a light Bear wrap on this right forearm Related Data Home Medications ?Medication ?Instructions ?Recorded ?Confirmed amlodipine 10 mg tablet 10 mg PO DAILY 12/26/21 09/27/24 atorvastatin 40 mg tablet 40 mg PO DAILY 12/26/21 09/27/24 diclofenac sodium 1 % topical gel 2 g topical 12/26/21 ferric citrate 210 mg iron tablet 2 tab PO TID 12/26/21 09/27/24 (Auryxia) lidocaine-prilocaine 2.5 %-2.5 % 1 applic topical DAILY 12/26/21 09/27/24 topical cream metoprolol tartrate 25 mg tablet 25 mg PO Q12H 12/26/21 09/27/24 sennosides 8.6 mg tablet (Suyapa-ulysses) 8.6 mg PO DAILY PRN 12/26/21 09/27/24 sevelamer carbonate 800 mg tablet 2,400 mg PO TID 12/26/21 09/27/24 vit B,C-folic ac 800 mcg-zinc 12.5 1 tab PO DAILY 12/26/21 09/27/24 mg-selen-D3 2,000 unit-vit E tablet (RenaPlex-D) sucralfate 100 mg/mL oral 1 g PO BID 02/11/23 09/27/24 suspension (Carafate) tizanidine 2 mg tablet 2 mg PO QPM 02/11/23 09/27/24 dicyclomine 20 mg tablet 20 mg PO cramps 08/23/24 escitalopram oxalate 5 mg tablet 5 mg PO QAM 08/23/24 09/27/24 metoclopramide HCl 5 mg tablet 2.5 mg PO BID PRN abdominal pain 08/23/24 09/27/24 nortriptyline 10 mg capsule mg PO 08/23/24 oxycodone 10 mg tablet 15 mg PO QID 08/23/24 09/27/24 aspirin 81 mg tablet,delayed mg PO 09/27/24 release furosemide 40 mg tablet 80 mg PO 09/27/24 ondansetron HCl 4 mg tablet 4 mg PO Q8H PRN 09/27/24 09/27/24 Previous Rx's ?Medication ?Instructions ?Recorded fidaxomicin 200 mg tablet 200 mg PO BID 10 days #20 tabs 10/21/22 Allergies Allergy/AdvReac Type Severity Reaction Status Date / Time lisinopril Allergy Severe angioedema Verified 09/27/24 16:29 Penicillins Allergy Unknown Verified 09/27/24 16:29 hydromorphone (From Dilaudid) AdvReac nausea/vomi Verified 09/27/24 16:29 ting Review of Systems Status of ROS: Reports: 6 or more systems reviewed and unremarkable except as noted in History and below [facility] Medical History Type 2 diabetes mellitus, without long-term current use of insulin ?E11.9 - Type 2 diabetes mellitus without complications (ICD-10) Hypertension ?I10 - Essential (primary) hypertension (ICD-10) Malignant neoplasm of sigmoid colon ?C18.7 - Malignant neoplasm of sigmoid colon (ICD-10) Spondylosis of lumbar region without myelopathy or radiculopathy ?M47.816 - Spondylosis without myelopathy or radiculopathy, lumbar region (ICD-10) Bilateral hip pain ?M25.551 - Pain in right hip (ICD-10) ?M25.552 - Pain in left hip (ICD-10) Spinal stenosis, lumbar region without neurogenic claudication ?M48.061 - Spinal stenosis, lumbar region without neurogenic claudication (ICD-10) Lumbar foraminal stenosis ?M48.061 - Spinal stenosis, lumbar region without neurogenic claudication (ICD-10) Chronic abdominal pain ?R10.9 - Unspecified abdominal pain (ICD-10) ?G89.29 - Other chronic pain (ICD-10) Chronic pain of both shoulders ?M25.511 - Pain in right shoulder (ICD-10) ?M25.512 - Pain in left shoulder (ICD-10) ?G89.29 - Other chronic pain (ICD-10) Peripheral polyneuropathy ?G62.9 - Polyneuropathy, unspecified (ICD-10) Chronic thoracic back pain ?M54.6 - Pain in thoracic spine (ICD-10) ?G89.29 - Other chronic pain (ICD-10) GERD (gastroesophageal reflux disease) ?K21.9 - Gastro-esophageal reflux disease without esophagitis (ICD-10) Chronic constipation ?K59.09 - Other constipation (ICD-10) Hematemesis ?K92.0 - Hematemesis (ICD-10) Anxiety and depression ?F41.9 - Anxiety disorder, unspecified (ICD-10) ?F32.A - Depression, unspecified (ICD-10) ESRD on hemodialysis ?N18.6 - End stage renal disease (ICD-10) ?Z99.2 - Dependence on renal dialysis (ICD-10) Secondary hyperparathyroidism (of renal origin) ?N25.81 - Secondary hyperparathyroidism of renal origin (ICD-10) Surgical History History of colectomy ?Z90.49 - Acquired absence of other specified parts of digestive tract (ICD-10) History of cholecystectomy ?Z90.49 - Acquired absence of other specified parts of digestive tract (ICD-10) Social History Smoking Status: Former smoker Do you use any of these nicotine containing products: None Second hand tobacco smoke exposure: No How often do you have a drink containing alcohol: never How often do you have six or more drinks on one occasion: Never AUDIT-C Alcohol total score: 0 Non-prescribed substance use: marijuana (any form) service: No Exam Narrative: Exam Narrative: Moving as if uncomfortable. Breathing easily. Skin is warm and dry. Mouth a little sticky. Healing surgical scar in the left arm. Right forearm has a light compressive sleeve on it. Lungs appear clear. Heart in regular rate and rhythm. Diffusely tender in the abdomen especially epigastrium. Bowel sounds present. Const: Vital Signs, click to edit/add: Vital Signs - 24 hr 10/31/24 14:02 10/31/24 16:00 Temperature 98.2 F Pulse Rate [Pulse Oximeter] 73 68 Respiratory Rate 18 20 Blood Pressure [Le ft Forearm] 172/90 H 182/98 H Pulse Oximetry 99 100 Oxygen Delivery Me thod Room Air Room Air Documenting provider has reviewed patient's vital signs: yes Course Vital Signs Vital signs: Initial Vital Signs Temperature 98.2 F 10/31/24 14:02 Temperature Source Temporal Artery Scan 10/31/24 14:02 Pulse Rate 73 10/31/24 14:02 Respiratory Rate 18 10/31/24 14:02 Blood Pressure 172/90 H 10/31/24 14:02 Blood Pressure Mean 117 H 10/31/24 14:02 Blood Pressure Position Sitting 10/31/24 14:02 Pulse Oximetry 99 10/31/24 14:02 Oxygen Delivery Method Room Air 10/31/24 14:02 Vital Signs Temperature 98.2 F 10/31/24 14:02 Pulse Rate 73 10/31/24 14:02 Respiratory Rate 18 10/31/24 14:02 Blood Pressure 172/90 H 10/31/24 14:02 Pulse Oximetry 99 10/31/24 14:02 Oxygen Delivery Method Room Air 10/31/24 14:02 Temperature 98.2 F 10/31/24 14:02 Pulse Rate 68 10/31/24 16:00 Respiratory Rate 20 10/31/24 16:00 Blood Pressure 182/98 H 10/31/24 16:00 Pulse Oximetry 100 10/31/24 16:00 Oxygen Delivery Method Room Air 10/31/24 16:00 Medications Administered Medications: Discontinued Medications Generic Name Dose Route Start Last Admin Trade Name Freq PRN Reason Stop Dose Admin Ondansetron HCl 4 mg 10/31/24 15:53 10/31/24 15:57 Ondansetron Odt 4 Mg Tab PO 10/31/24 15:54 4 mg ONCE ONE Administration Oxycodone HCl 10 mg 10/31/24 15:14 10/31/24 15:21 Oxycodone 5 Mg Tablet PO 10/31/24 15:15 10 mg ONCE ONE Administration Medical Decision Making MDM Narrative Medical decision making narrative: Relatively acute on chronic abdominal pain. Since he has been cutting his dialysis runs a little short would be further prudent to check some labs. Will treat pain while he is here in the emergency department with his usual oxycodone. Considering history of C diff we will look for this again. This might be other diarrheal illness exacerbating chronic abdominal pain. If C diff positive I would be less inclined to image his abdomen provided labs are not terribly off. On reassessment some pain but more with concern of nausea. Given a dose of Zofran. Third reassessment is improved. White count is not elevated at 10.6. Hemoglobin steady at 10.8. Potassium is a little elevated at 5.6 today. Did discuss this with him. He would anticipate this ?not bad? considering he did not have his dialysis run today. CRP is 0.6 C diff tox B unfortunately is positive. Complicated history with end-stage renal disease, diabetes and history of C diff colitis ultimately requiring fecal transplant. Will attempt to communicate with [facility] where has received cares before for further recommendations for treatment. Anticipating call back from [facility] at change of shift. Medical Records Medical records reviewed: Yes I reviewed the patient's medical records Lab Data Lab results reviewed: Yes I reviewed the patient's lab results Labs: Lab Results 10/31/24 10/31/24 Range/Units 14:47 Unknown WBC 10.64 (4.50-11.00) K/uL RBC 3.26 L (4.30-5.90) m/uL Hgb 10.8 L (13.5-17.5) gm/dL Hct 34.3 L (37.0-53.0) % MCV 105 H (80-100) fL MCH 33 (26-34) pg MCHC 32 (32-36) gm/dL RDW Coeff of Mike 15.6 H (11.5-15.5) % Plt Count 181 (140-440) K/uL Neut % (Auto) 86.5 H (42.0-72.0) % Lymph % (Auto) 6.5 L (20-44) % [place] % (Auto) 4.7 (0.0-11.0) % Eos % (Auto) 1.9 (0.0-7.0) % Baso % (Auto) 0.2 (0.0-3.0) % Neut # (Auto) 9.20 H (1.7-7.0) K/uL Lymph # (Auto) 0.70 L (0.90-2.90) K/uL [place] # (Auto) 0.50 (0.00-0.90) K/UL Eos # (Auto) 0.20 (0.00-0.50) K/uL Baso # (Auto) 0.02 (0.00-0.30) K/uL Abs Immat Gran (auto) 0.02 (0.00-0.30) K/uL Imm/Tot Granulo (auto) 0.2 % Sodium 135 (135-149) mmol/L Potassium 5.6 H (3.6-5.1) mmol/L Chloride 107 (96-114) mmol/L Carbon Dioxide 14 L (20-32) mmol/L Anion Gap 14 (7-15) mEq/L BUN 37 H (7-30) mg/dL Creatinine 10.9 H (0.5-1.5) mg/dL Estimated Creat Clear 6.56 Estimated GFR 5 ml/min Glucose 144 H (60-115) mg/dL Calcium 10.1 (8.4-10.6) mg/dL C-Reactive Protein 0.6 (0.5-1.0) mg/dL Stl C. diff Tox B Gene POSITIVE A* (Negative) Stl C. diff [id number]-NAP1-BI PRESUMPTIVE NEGATIVE (Negative) Discharge Plan Discharge Clinical Impression: C. difficile colitis, ESRD on dialysis Patient Disposition: Home, Self-Care Condition: Stable Prescriptions: No Action atorvastatin 40 mg tablet 40 mg PO DAILY Patient Comments: TAKE ONE TABLET BY MOUTH AT BEDTIME sennosides [Suyapa-ulysses] 8.6 mg tablet 8.6 mg PO DAILY PRN Patient Comments: TAKE 1 TABLET (8.6 MG) BY MOUTH 2 TIMES DAILY. lidocaine-prilocaine 2.5-2.5 % cream 1 applic topical DAILY Patient Comments: APPLY SMALL AMOUNT TO ACCESS SITE (AVF) 1 TO 2 HOURS BEFORE DIALYSIS. COVER WITH OCCLUSIVE DRESSING (SARAN WRAP) amlodipine 10 mg tablet 10 mg PO DAILY Patient Comments: TAKE ONE TABLET BY MOUTH ONCE DAILY metoprolol tartrate 25 mg tablet 25 mg PO Q12H Patient Comments: TAKE ONE TABLET BY MOUTH TWICE A DAY. ON DIALYSIS DAYS TAKE THIS AFTERWARDS sevelamer carbonate 800 mg tablet 2,400 mg PO TID Patient Comments: TAKE 4 TABLETS BY MOUTH THREE TIMES DAILY WITH MEALS AND 3 TABLETS TWICE DAILY WITH SNACKS diclofenac sodium 1 % gel 2 g TOPICAL Patient Comments: APPLY 2 G TOPICALLY TO AFFECTED AREA(S) 4 TIMES DAILY. ferric citrate [Auryxia] 210 mg iron tablet 2 tab PO TID Patient Comments: TAKE 2 TABLETS BY MOUTH THREE TIMES A DAY WITH MEALS AND 1 TABLET TWICE A DAY WITH SNACKS. SWALLOW WHOLE, DO NOT CHEW OR CRUSH MEDICATION RenaPlex-D 800 mcg-12.5 mg -2,000 unit tablet 1 tab PO DAILY Patient Comments: TAKE 1 TABLET BY MOUTH EVERY DAY WITH THE EVENING MEAL fidaxomicin 200 mg tablet 200 mg PO BID 10 Days Qty: 20 0RF Rx Instructions: May need PA. His C Diff is resistant to Flagyl and Vanco. sucralfate [Carafate] 100 mg/mL suspension 1 g PO BID tizanidine 2 mg tablet 2 mg PO QPM furosemide 40 mg tablet 80 mg PO ondansetron HCl 4 mg tablet 4 mg PO Q8H PRN aspirin 81 mg tablet,delayed release (DR/EC) PO metoclopramide HCl 5 mg tablet 2.5 mg PO BID PRN (Reason: abdominal pain) dicyclomine 20 mg tablet 20 mg PO escitalopram oxalate 5 mg tablet 5 mg PO QAM oxycodone 10 mg tablet 15 mg PO QID nortriptyline 10 mg capsule PO Follow Up/Referrals: Rosamaria Garcia PA-C [Primary Care Provider, Family Practice] Stand Alone [facility]: [facility] Info Instructions
[2024-10-31 15:02] LABS: Hematocrit 34.3 % (37.0-53.0); Hemoglobin* 10.8 gm/dL (13.5-17.5); Immature Granulocytes Abs Auto 0.02 K/uL (0.00-0.30); Immature Granulocytes Pct Auto 0.2 %; Mean Corpuscular HGB Conc 32 gm/dL (32-36); Mean Corpuscular Hemoglobin 33 pg (26-34); Mean Corpuscular Volume 105 fL (80-100); RDW Coefficient of Variation % 15.6 % (11.5-15.5); Red Blood Count 3.26 m/uL (4.30-5.90); White Blood Count* 10.64 K/uL (4.50-11.00)
[2024-10-31 15:05] LABS: Lymphocytes Absolute Auto 0.70 K/uL (0.90-2.90); Slide Review Reflex No
[2024-10-31 15:07] LABS: Chloride* 107 mmol/L (96-114); Potassium* 5.6 mmol/L (3.6-5.1); Sodium* 135 mmol/L (135-149)
[2024-10-31 15:11] LABS: Anion Gap 14 mEq/L (7-15); Blood Urea Nitrogen* 37 mg/dL (7-30); Calcium* 10.1 mg/dL (8.4-10.6); Carbon Dioxide* 14 mmol/L (20-32); Creatinine* 10.9 mg/dL (0.5-1.5); Est. Creatinine Clearance* 6.56; Estimated Glomerular Filt Rate 5 ml/min; Glucose* 144 mg/dL (60-115)
[2024-10-31 15:26] LABS: CDIFFEPI 027 PRESUMPTIVE NEGATIVE (Negative)
[2024-10-31] MEDS: ONDANSETRON ODT 4 MG TAB PO (15:57)
[2024-10-31 16:00] VITALS: BP 182/98; PULSE 68; RESP 20; O2SAT 100
[2024-10-31 16:28] LABS: C.Difficile POSITIVE (Negative)
--- NOTE | 2024-10-31 17:22 | ED.GENADULT ---
HPI - General Adult General Chief complaint: Diarrhea Stated complaint: R side pains, diarrhea Time Seen by Provider: 10/31/24 14:08 History of Present Illness HPI narrative: This is an addendum to Dr. Jenkins is ER note for this patient dated today 10/31. Patient is tired of waiting for [facility] to call back to make physician to physician contact. He is requesting discharge now. He says he will call his doctors at [facility] tomorrow. At this point he is hemodynamically stable. He is certainly not holdable. He has good grasp of his medical diagnosis. We will put him on fidaxomicin. He will call his doctors tomorrow to arrange further follow-up. He has, in the past, required a fecal transplant. He understands precautions for return to the ER. Related Data Home Medications ?Medication ?Instructions ?Recorded ?Confirmed amlodipine 10 mg tablet 10 mg PO DAILY 12/26/21 09/27/24 atorvastatin 40 mg tablet 40 mg PO DAILY 12/26/21 09/27/24 diclofenac sodium 1 % topical gel 2 g topical 12/26/21 ferric citrate 210 mg iron tablet 2 tab PO TID 12/26/21 09/27/24 (Auryxia) lidocaine-prilocaine 2.5 %-2.5 % 1 applic topical DAILY 12/26/21 09/27/24 topical cream metoprolol tartrate 25 mg tablet 25 mg PO Q12H 12/26/21 09/27/24 sennosides 8.6 mg tablet (Suyapa-ulysses) 8.6 mg PO DAILY PRN 12/26/21 09/27/24 sevelamer carbonate 800 mg tablet 2,400 mg PO TID 12/26/21 09/27/24 vit B,C-folic ac 800 mcg-zinc 12.5 1 tab PO DAILY 12/26/21 09/27/24 mg-selen-D3 2,000 unit-vit E tablet (RenaPlex-D) sucralfate 100 mg/mL oral 1 g PO BID 02/11/23 09/27/24 suspension (Carafate) tizanidine 2 mg tablet 2 mg PO QPM 02/11/23 09/27/24 dicyclomine 20 mg tablet 20 mg PO cramps 08/23/24 escitalopram oxalate 5 mg tablet 5 mg PO QAM 08/23/24 09/27/24 metoclopramide HCl 5 mg tablet 2.5 mg PO BID PRN abdominal pain 08/23/24 09/27/24 nortriptyline 10 mg capsule mg PO 08/23/24 oxycodone 10 mg tablet 15 mg PO QID 08/23/24 09/27/24 aspirin 81 mg tablet,delayed mg PO 09/27/24 release furosemide 40 mg tablet 80 mg PO 09/27/24 ondansetron HCl 4 mg tablet 4 mg PO Q8H PRN 09/27/24 09/27/24 Previous Rx's ?Medication ?Instructions ?Recorded fidaxomicin 200 mg tablet 200 mg PO BID 10 days #20 tabs 10/21/22 fidaxomicin 200 mg tablet (Dificid) 200 mg PO BID 10 days #20 tabs 10/31/24 Allergies Allergy/AdvReac Type Severity Reaction Status Date / Time lisinopril Allergy Severe angioedema Verified 09/27/24 16:29 Penicillins Allergy Unknown Verified 09/27/24 16:29 hydromorphone (From Dilaudid) AdvReac nausea/vomi Verified 09/27/24 16:29 ting [facility] Medical History Type 2 diabetes mellitus, without long-term current use of insulin ?E11.9 - Type 2 diabetes mellitus without complications (ICD-10) Hypertension ?I10 - Essential (primary) hypertension (ICD-10) Malignant neoplasm of sigmoid colon ?C18.7 - Malignant neoplasm of sigmoid colon (ICD-10) Spondylosis of lumbar region without myelopathy or radiculopathy ?M47.816 - Spondylosis without myelopathy or radiculopathy, lumbar region (ICD-10) Bilateral hip pain ?M25.551 - Pain in right hip (ICD-10) ?M25.552 - Pain in left hip (ICD-10) Spinal stenosis, lumbar region without neurogenic claudication ?M48.061 - Spinal stenosis, lumbar region without neurogenic claudication (ICD-10) Lumbar foraminal stenosis ?M48.061 - Spinal stenosis, lumbar region without neurogenic claudication (ICD-10) Chronic abdominal pain ?R10.9 - Unspecified abdominal pain (ICD-10) ?G89.29 - Other chronic pain (ICD-10) Chronic pain of both shoulders ?M25.511 - Pain in right shoulder (ICD-10) ?M25.512 - Pain in left shoulder (ICD-10) ?G89.29 - Other chronic pain (ICD-10) Peripheral polyneuropathy ?G62.9 - Polyneuropathy, unspecified (ICD-10) Chronic thoracic back pain ?M54.6 - Pain in thoracic spine (ICD-10) ?G89.29 - Other chronic pain (ICD-10) GERD (gastroesophageal reflux disease) ?K21.9 - Gastro-esophageal reflux disease without esophagitis (ICD-10) Chronic constipation ?K59.09 - Other constipation (ICD-10) Hematemesis ?K92.0 - Hematemesis (ICD-10) Anxiety and depression ?F41.9 - Anxiety disorder, unspecified (ICD-10) ?F32.A - Depression, unspecified (ICD-10) ESRD on hemodialysis ?N18.6 - End stage renal disease (ICD-10) ?Z99.2 - Dependence on renal dialysis (ICD-10) Secondary hyperparathyroidism (of renal origin) ?N25.81 - Secondary hyperparathyroidism of renal origin (ICD-10) Surgical History History of colectomy ?Z90.49 - Acquired absence of other specified parts of digestive tract (ICD-10) History of cholecystectomy ?Z90.49 - Acquired absence of other specified parts of digestive tract (ICD-10) Social History Smoking Status: Former smoker Do you use any of these nicotine containing products: None Second hand tobacco smoke exposure: No How often do you have a drink containing alcohol: never How often do you have six or more drinks on one occasion: Never AUDIT-C Alcohol total score: 0 Non-prescribed substance use: marijuana (any form) service: No Exam Const: Vital Signs, click to edit/add: Vital Signs - 24 hr 10/31/24 14:02 10/31/24 16:00 Temperature 98.2 F Pulse Rate [Pulse Oximeter] 73 68 Respiratory Rate 18 20 Blood Pressure [Le ft Forearm] 172/90 H 182/98 H Pulse Oximetry 99 100 Oxygen Delivery Me thod Room Air Room Air Course Vital Signs Vital signs: Initial Vital Signs Temperature 98.2 F 10/31/24 14:02 Temperature Source Temporal Artery Scan 10/31/24 14:02 Pulse Rate 73 10/31/24 14:02 Respiratory Rate 18 10/31/24 14:02 Blood Pressure 172/90 H 10/31/24 14:02 Blood Pressure Mean 117 H 10/31/24 14:02 Blood Pressure Position Sitting 10/31/24 14:02 Pulse Oximetry 99 10/31/24 14:02 Oxygen Delivery Method Room Air 10/31/24 14:02 Vital Signs Temperature 98.2 F 10/31/24 14:02 Pulse Rate 73 10/31/24 14:02 Respiratory Rate 18 10/31/24 14:02 Blood Pressure 172/90 H 10/31/24 14:02 Pulse Oximetry 99 10/31/24 14:02 Oxygen Delivery Method Room Air 10/31/24 14:02 Temperature 98.2 F 10/31/24 14:02 Pulse Rate 68 10/31/24 16:00 Respiratory Rate 20 10/31/24 16:00 Blood Pressure 182/98 H 10/31/24 16:00 Pulse Oximetry 100 10/31/24 16:00 Oxygen Delivery Method Room Air 10/31/24 16:00 Medications Administered Medications: Discontinued Medications Generic Name Dose Route Start Last Admin Trade Name Ihsan PRN Reason Stop Dose Admin Ondansetron HCl 4 mg 10/31/24 15:53 10/31/24 15:57 Ondansetron Odt 4 Mg Tab PO 10/31/24 15:54 4 mg ONCE ONE Administration Oxycodone HCl 10 mg 10/31/24 15:14 10/31/24 15:21 Oxycodone 5 Mg Tablet PO 10/31/24 15:15 10 mg ONCE ONE Administration Medical Decision Making Lab Data Labs: Lab Results 10/31/24 10/31/24 Range/Units 14:47 Unknown WBC 10.64 (4.50-11.00) K/uL RBC 3.26 L (4.30-5.90) m/uL Hgb 10.8 L (13.5-17.5) gm/dL Hct 34.3 L (37.0-53.0) % MCV 105 H (80-100) fL MCH 33 (26-34) pg MCHC 32 (32-36) gm/dL RDW Coeff of Mike 15.6 H (11.5-15.5) % Plt Count 181 (140-440) K/uL Neut % (Auto) 86.5 H (42.0-72.0) % Lymph % (Auto) 6.5 L (20-44) % [place] % (Auto) 4.7 (0.0-11.0) % Eos % (Auto) 1.9 (0.0-7.0) % Baso % (Auto) 0.2 (0.0-3.0) % Neut # (Auto) 9.20 H (1.7-7.0) K/uL Lymph # (Auto) 0.70 L (0.90-2.90) K/uL [place] # (Auto) 0.50 (0.00-0.90) K/UL Eos # (Auto) 0.20 (0.00-0.50) K/uL Baso # (Auto) 0.02 (0.00-0.30) K/uL Abs Immat Gran (auto) 0.02 (0.00-0.30) K/uL Imm/Tot Granulo (auto) 0.2 % Sodium 135 (135-149) mmol/L Potassium 5.6 H (3.6-5.1) mmol/L Chloride 107 (96-114) mmol/L Carbon Dioxide 14 L (20-32) mmol/L Anion Gap 14 (7-15) mEq/L BUN 37 H (7-30) mg/dL Creatinine 10.9 H (0.5-1.5) mg/dL Estimated Creat Clear 6.56 Estimated GFR 5 ml/min Glucose 144 H (60-115) mg/dL Calcium 10.1 (8.4-10.6) mg/dL C-Reactive Protein 0.6 (0.5-1.0) mg/dL Stl C. diff Tox B Gene POSITIVE A* (Negative) Stl C. diff 027-NAP1-BI PRESUMPTIVE NEGATIVE (Negative) Discharge Plan Discharge Clinical Impression: C. difficile colitis, ESRD on dialysis Patient Disposition: Home, Self-Care Condition: Stable Instructions: C. Diff (Clostridioides Difficile) Infection (ED) Additional Instructions: Be seen for uncontrolled pain, intractable vomiting, fever. Please reach out to [facility] tomorrow for further recommendations and care. We are sending in a prescription for you. Prescriptions: New Dificid 200 mg tablet 200 mg PO BID 10 Days Qty: 20 0RF No Action atorvastatin 40 mg tablet 40 mg PO DAILY Patient Comments: TAKE ONE TABLET BY MOUTH AT BEDTIME sennosides [Suyapa-ulysses] 8.6 mg tablet 8.6 mg PO DAILY PRN Patient Comments: TAKE 1 TABLET (8.6 MG) BY MOUTH 2 TIMES DAILY. lidocaine-prilocaine 2.5-2.5 % cream 1 applic topical DAILY Patient Comments: APPLY SMALL AMOUNT TO ACCESS SITE (AVF) 1 TO 2 HOURS BEFORE DIALYSIS. COVER WITH OCCLUSIVE DRESSING (SARAN WRAP) amlodipine 10 mg tablet 10 mg PO DAILY Patient Comments: TAKE ONE TABLET BY MOUTH ONCE DAILY metoprolol tartrate 25 mg tablet 25 mg PO Q12H Patient Comments: TAKE ONE TABLET BY MOUTH TWICE A DAY. ON DIALYSIS DAYS TAKE THIS AFTERWARDS sevelamer carbonate 800 mg tablet 2,400 mg PO TID Patient Comments: TAKE 4 TABLETS BY MOUTH THREE TIMES DAILY WITH MEALS AND 3 TABLETS TWICE DAILY WITH SNACKS diclofenac sodium 1 % gel 2 g TOPICAL Patient Comments: APPLY 2 G TOPICALLY TO AFFECTED AREA(S) 4 TIMES DAILY. ferric citrate [Auryxia] 210 mg iron tablet 2 tab PO TID Patient Comments: TAKE 2 TABLETS BY MOUTH THREE TIMES A DAY WITH MEALS AND 1 TABLET TWICE A DAY WITH SNACKS. SWALLOW WHOLE, DO NOT CHEW OR CRUSH MEDICATION RenaPlex-D 800 mcg-12.5 mg -2,000 unit tablet 1 tab PO DAILY Patient Comments: TAKE 1 TABLET BY MOUTH EVERY DAY WITH THE EVENING MEAL fidaxomicin 200 mg tablet 200 mg PO BID 10 Days Qty: 20 0RF Rx Instructions: May need PA. His C Diff is resistant to Flagyl and Vanco. sucralfate [Carafate] 100 mg/mL suspension 1 g PO BID tizanidine 2 mg tablet 2 mg PO QPM furosemide 40 mg tablet 80 mg PO ondansetron HCl 4 mg tablet 4 mg PO Q8H PRN aspirin 81 mg tablet,delayed release (DR/EC) PO metoclopramide HCl 5 mg tablet 2.5 mg PO BID PRN (Reason: abdominal pain) dicyclomine 20 mg tablet 20 mg PO escitalopram oxalate 5 mg tablet 5 mg PO QAM oxycodone 10 mg tablet 15 mg PO QID nortriptyline 10 mg capsule PO Follow Up/Referrals: Rosamaria Garcia PA-C [Primary Care Provider, Family Practice] Stand Alone Forms: [facility] Info Instructions
== END 2024-10-31 17:25 | disposition home or self-care (01) ==
PROVIDERS: Emergency Provider Family Medicine; PCP Physician Assistant
DX: R10.9 Unspecified abdominal pain (principal); R19.7 Diarrhea, unspecified; B96.7 Clostridium perfringens [C. perfringens] as the cause of diseases classified elsewhere; N18.6 End stage renal disease; Z99.2 Dependence on renal dialysis
CPT/HCPCS: 36415; 80048; 85025; 86140; 87493; 99281; 99283; 99284; A9270

== ENCOUNTER 2024-11-09 17:52 | Emergency (ER) | payer MEDICARE, OTHER, SELFPAY ==
--- OUTSIDE RECORDS SUMMARY | 2012-07-12 07:16 | XMS_ITS | Continuity of Care Document ---
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 Name Role Phone Unavailable Unavailable Unavailable Medications Medication Instructions Dosage Effective Dates (start - stop) Status Comments lisinopril 40 mg tablet take 1 tablet (4 0MG) by oral route every day 1 tablet by mouth daily 40 MG - Active Nephrocaps 1 mg capsule take 1 capsule b y oral route every day - Active calcium acetate 667 mg tablet take 2-3 tablet (1334MG) by oral route 3 times every day with meals and 1-2 tavs by mouth with snacks - Active amlodipine 10 mg tablet take 1 tablet (1 0MG) by oral route every day 10 MG - Active ondansetron 4 mg disintegrating tablet take 1tablet (8MG) by oral route every 8 hours for [address] on top of the tongue where it will dissolve, then swallow - Active metoclopramide 10 mg tablet take 1 tablet (10MG) by ORAL route 4 times every day as needed for nausea 10 MG - Active clonazepam 0.5 mg tablet take 1 tablet (0.5MG) by oral route 2 times every day 0.5 MG - Active citalopram 10 mg tablet take 1 tablet (1 0MG) by oral route every day 10 MG - Active calcium acetate 667 mg capsule take 1 Tablet by oral route 3 times every day with meals - Active Procedures Procedure Date Offic Cons New/estab Mod-hi 60 13 QA DONE Advance Directives Directive Yes / No Effective Date File Name No Information Encounters Encounter Description Practice Location Reason(s) For Visit Diagnoses Date Provider Providers Copied on Encounter ESTELA Blackmon, [address], [place], [place], [id number], [place] tel:[phone] [facility] No Information 3 No Information Referring Provider: Courtney Crowley, [address] [place], [address]. tel:[phone] Offic Cons New/estab Mod-hi 60 [facility] Blackmon, [address], [place], [place], [id number], [place] tel:[phone] [facility] No Information 3 Candy Peres. [address], [place], [address], [place]. tel:[phone] Referring Provider: Courtney Crowley, [address] [place], [address]. tel:[phone] Family History Family Member Type Diagnosis Age At Onset No Information Payers Payer name Insurance type Covered alliance party ID Flory garcia(s) [employer] [place] [id number] Social History Type Description Quantity Date Captured Comments Alcohol Use Details No Caffeine Use Details Unknown Tobacco Use Status No Information Smoking Status Smoker, current stat us unknown Non-Smoking Tobacco Use Details : No Details Available : No Details Available Sex Male Chief Complaint And Reason For Visit No Information Reason For Referral Reason For Referral No Information History Of Present Illness Encounter Date Complaint History Of Prese nt Illness No Information Functional Status Date Functional Assessmen t No Information Instructions Date Instruction Additional Infor mation No Information Assessments Type Assessment Date No Information Patient Care Teams Name Effective Dates (start - stop) Status Members No Information
--- OUTSIDE RECORDS SUMMARY | 2012-07-12 07:16 | XMS_ITS | Continuity of Care Document ---
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 Name Role Phone Unavailable Unavailable Unavailable Medications Medication Instructions Dosage Effective Dates (start - stop) Status Comments lisinopril 40 mg tablet take 1 tablet (4 0MG) by oral route every day 1 tablet by mouth daily 40 MG - Active amlodipine 10 mg tablet take 1 tablet (1 0MG) by oral route every day 10 MG - Active calcium acetate 667 mg tablet take 2-3 tablet (1334MG) by oral route 3 times every day with meals and 1-2 tavs by mouth with snacks - Active calcium acetate 667 mg capsule take 1 Tablet by oral route 3 times every day with meals - Active citalopram 10 mg tablet take 1 tablet (1 0MG) by oral route every day 10 MG - Active clonazepam 0.5 mg tablet take 1 tablet (0.5MG) by oral route 2 times every day 0.5 MG - Active metoclopramide 10 mg tablet take 1 tablet (10MG) by ORAL route 4 times every day as needed for nausea 10 MG - Active ondansetron 4 mg disintegrating tablet take 1tablet (8MG) by oral route every 8 hours for [address] on top of the tongue where it will dissolve, then swallow - Active Nephrocaps 1 mg capsule take 1 capsule b y oral route every day - Active Procedures Procedure Date Offic Cons New/estab Mod-hi 60 13 QA DONE Advance Directives Directive Yes / No Effective Date File Name No Information Encounters Encounter Description Practice Location Reason(s) For Visit Diagnoses Date Provider Providers Copied on Encounter ESTELA Blackmon, [address], [place], [place], [id number], [place] tel:[phone] [facility] No Information 3 No Information Referring Provider: Courtney Crowley, [address] [place], [address]. tel:[phone] Offic Cons New/estab Mod-hi 60 MARYSOL Blackmon, [address], [place], [place], [id number], [place] tel:[phone] [facility] No Information 3 Candy Peres. [address], [place], [address], [place]. tel:[phone] Referring Provider: Courtney Crowley, [address] [place], [address]. tel:[phone] Family History Family Member Type Diagnosis Age At Onset No Information Payers Payer name Insurance type Covered constitution party ID Flory garcia(s) [employer] [place] [id number] Social History Type Description Quantity Date Captured [...]
--- OUTSIDE RECORDS SUMMARY | 2023-08-16 05:00 | XMS_ITS | Continuity of Care Document ---
Author Organization [facility] Address [address] [place] [address] Phone Care Team Providers Care Tailer Off Name Role Phone Mary Park DNP Unavailable Unavailab le Allergies, Adverse Reactions, Alerts Substance Reaction Status Criticality hydrocodone Active No Information lisinopril Active No Information Penicillanic Sulfone BL Beta-Lactamase Inhibitors Active No Information Medications Medication Instructions Dosage Effective Dates (start - stop) Status Comments Suyapa-ulysses 8.6 mg tablet Take 1 Tablet (8. 6 mg) by mouth 2 times daily if needed for Constipation. - Active oxycodone 10 mg tablet Take 1 Tablet (10 mg) by mouth three times daily. - Active amlodipine 10 mg tablet TAKE ONE TABLET (10 MG) BY MOUTH ONCE DAILY. - Active buspirone 5 mg tablet Take 1 Tablet (5 m g) by mouth two times daily. - Active hyoscyamine sulfate 0.125 mg tablet Take 2 Tablets (0.25 mg) by mouth every 4 hours if needed for Colic. - Active lidocaine 5 % topical patch Apply on dry, clean, hairless skin. Apply 1 patch to painful area of skin for up to to 12 hours within 24 hour period. - Active pregabalin 25 mg capsule Take 1 Capsule (25 mg) by mouth once daily. - Active ondansetron [address] 1 Tablet (8 mg) on the tongue every 8 hours if needed for Nausea/Vomiting. - Active famotidine 20 mg tablet Take 1 Tablet (2 0 mg) by mouth two times daily. - Active bisacodyl 10 mg rectal suppository Insert 1 Suppository (10 mg) rectally once daily if needed for Constipation. - Active metoprolol tartrate 25 mg tablet Take 1 Tablet (25 mg) by mouth two times daily. - Active atorvastatin 40 mg tablet Take 1 Tablet (40 mg) by mouth at bedtime. - Active aspirin 81 mg tablet,delayed release Take 1 Tablet (81 mg) by mouth once daily with a meal. - Active tizanidine 2 mg tablet Take 1 Tablet (2 mg) by mouth at bedtime. - Active Auryxia 210 mg iron tablet Take 420 mg by mouth three times daily with meals. - Active Dificid 200 mg tablet Take 200 mg by alfred th two times daily. - Active polyethylene glycol 3350 17 gram oral powder packet Mix 17 g in liquid then take by mouth once daily if needed for Constipation. - Active Procedures Procedure Date OFFICE/OUTPATIENT VISIT, EST OFFICE/OUTPATIENT VISIT, EST OFFICE/OUTPATIENT VISIT, NEW Advance Directives Directive Yes / No Effective Date File Name No Information Encounters Encounter Description Practice Location Reason(s) For Visit Diagnoses Date Provider Providers Copied on Encounter OFFICE/OUTPA TIENT VISIT, [facility], [address], [place], [id number] , [place] tel:[phone] [facility] [place] mid back pain (chief complaint) Type 2 diabetes mellitus with diabetic polyneuropathyChr onic pain syndromePain in right shoulderOther intervertebral disc degeneration, thoracic regionRadiculopat hy, lumbar regionMyalgia, other siteLong term (current) use of opiate analgesic 4 Vivian Hernandez. [address], [address], [id number], [place]. tel:[phone] Referring Provider: Rosamaria Garcia, [address], [address]. tel:[phone] OFFICE/OUTPA TIENT VISIT, [facility], [address], [place], [id number] , [place] tel:[phone] [facility] Mid back pain (chief complaint) Type 2 diabetes mellitus with diabetic polyneuropathyChr onic pain syndromePain in right shoulderOther intervertebral disc degeneration, thoracic regionRadiculopat hy, lumbar regionMyalgia, other siteLong term (current) use of opiate analgesic 4 Vivian Hernandez. [address] [facility] 11, [facility] [address], [place], [id number], [place]. tel:[phone] Referring Provider: Rosamaria Garcia [address], [address]. tel:[phone] OFFICE/OUTPA TIENT VISIT, [facility], [address], [place], [id number] , [place] tel:[phone] [facility] mid back pain (chief complaint) Chronic pain syndromeLong term (current) use of opiate analgesicPain in right shoulderMyalgia, other siteOther intervertebral disc degeneration, thoracic regionRadiculopat hy, lumbar regionType 2 diabetes mellitus with diabetic polyneuropathy 3 Vivian Hernandez. [address] [facility] [address], [address], [id number], [place]. tel:[phone] Referring Provider: Rosamaria Garcia [address], [address]. tel:[phone] Family History Family Member Type Diagnosis Age At Onset No Information Payers Payer name Insurance type Covered libertarian ID Authoriza tion(s) Medicare MB [id number] [employer] [place] And [facility] [id number] Social History Type Description Quantity Date Captured Comments Alcohol Use Details No Caffeine Use Details Unknown Tobacco Use Status No Information Smoking Status Former smoker Sex Male Chief Complaint And Reason For Visit From encounter dated '08/16/2023 10:00'. mid back pain (chief complaint). Description: Duration: chronic. The problem is fluctuating. It occurs intermittently. The client describes the pain as an ache, sharp and tingling. Reason For Referral Reason For Referral No Information Plan Of Treatment Date Type Action Status Goal Order Annual PT. Due on due Goal OARS. Due on due Goal ANTHROPOLOGY DEPARTMENT CHAIR Paperwork. Due on due Goal ALT (SGPT). Due on due Goal Creatinine. Due on due Goal Medication Reconciliation. D ue on due Goal CT-Colonography. Due on due Goal Review Allergy List. Due on due Goal Lipid panel. Due on due Goal SOFTWARE TEST TECHNICIAN Scanned. Due on due Goal FIT-DNA. Due on due Goal FIT. Due on due Goal Update Social History. Due o n due Goal UDT. Due on due Goal Height. Due on d ue Goal AST (SGOT). Due on due Goal Unhealthy drug use screening . Due on due Goal PHQ-9. Due on du e Goal Tobacco Use. Due on due Goal Hepatitis C screening. Due o n due Goal Weight. Due on d ue Goal Zoster vaccine (1st). Due on due Goal ALT (SGPT). Due on due Goal Review Allergy List. Due on due Goal SOFTWARE TEST TECHNICIAN Scanned. Due on due Goal Height. Due on d ue Goal Lipid panel. Due on due Goal Medication Reconciliation. D ue on due Goal UDT. Due on due Goal PHQ-9. Due on du e Goal Update Social History. Due o n due Goal Creatinine. Due on due Goal FIT. Due on due Goal Weight. Due on d ue Goal Unhealthy drug use screening . Due on due Goal Zoster vaccine (1st). Due on due Goal CT-Colonography. Due on due Goal FIT-DNA. Due on due Goal Hepatitis C screening. Due o n due Goal Tobacco Use. Due on due Goal Order Annual PT. Due on due Goal ANTHROPOLOGY DEPARTMENT CHAIR Paperwork. Due on due Goal AST (SGOT). Due on due Goal OARS. Due on due Goal SOFTWARE TEST TECHNICIAN Scanned. Due on due Goal OARS. Due on due Goal Order Annual PT. Due on due Goal UDT. Due on due Goal Creatinine. Due on due Goal AST (SGOT). Due on due Goal ANTHROPOLOGY DEPARTMENT CHAIR Paperwork. Due on due Goal ALT (SGPT). Due on due Goal Hepatitis C screening. Due o n due Goal PHQ-9. Due on du e Goal Update Social History. Due o n due Goal Tobacco Use. Due on due Goal Medication Reconciliation. D ue on due Goal Zoster vaccine (1st). Due on due Goal CT-Colonography. Due on due Goal FIT-DNA. Due on due Goal Lipid panel. Due on due Goal Review Allergy List. Due on due Goal Unhealthy drug use screening . Due on due Goal Height. Due on d ue Goal FIT. Due on due Goal Weight. Due on d ue History Of Present Illness Encounter Date Complaint History Of Prese nt Illness mid back pain Duration: chroni c. The problem is fluctuating. It occurs intermittently. The client describes the pain as an ache, sharp and tingling. Comments: Brandt shukla is a 53 y/o male here for follow up for mid to low back pain with radiation down his R leg as well as R shoulder pain. Mid back pain is most bothersome and low back pain has been improving.He reports mid back pain located between his shoulder blades, which radiates down his BL legs (R>L), along with intermittent weakness. A right L4-L5 TESI was ordered last visit, but he had to cancel d/t not having transportation and wanting MAC sedation. Asks if he should reschedule, despite having improved low back pain. Has not received a call from [facility] regarding a previous order of a TENS unit. He has been receiving massages, which has been helpful for thoracic pain.Continues to have R shoulder pain with hx of torn R rotator cuff. Has not started PT yet.The patient is currently managed on oxycodone 10mg TID and tizanidine 2mg HS as needed. Cannabis is helpful for his anxiety, but cost-prohibitive. Tizanidine provides some relief for his low back and helps with sleep. No other concerns today. Mid back pain Severity level i s 3. Duration: chronic. It occurs intermittently. The client describes the pain as an ache and sharp. Symptoms are aggravated by bending, housework, prolonged positions and rising. Symptoms are relieved by massage, pain meds/drugs, rest and changing positions. Comments: Brandt shukla is a 53 y/o male here for initial follow up for mid to low back pain with radiation down his R leg as well as R shoulder pain. Mid back pain is most bothersome. Pain started in high school d/t an unknown reason and has worsened over the years. Reports low back pain has started to improve since MEE on 04/19/23.He reports mid back pain located between his shoulder blades, which radiates down his BL legs (R>L), along with intermittent weakness. Notes BL leg diabetic neuropathy. He recently completed a lumbar and R shoulder MRI that he would like to review today. Reports recent weakness of his BL legs, which he hadn't had before. Continues to have R shoulder pain with hx of torn R rotator cuff. Will be starting PT next week.The patient is currently managed on oxycodone 10mg TID and tizanidine 2mg HS as needed. Cannabis is helpful for his anxiety, but cost-prohibitive. Tizanidine provides some relief for his low back and helps with sleep. No other concerns today. mid back pain Severity level i s 8. Duration: chronic. It occurs persistently. Location of pain is middle back and legs. The client describes the pain as sharp and shooting. Symptoms are relieved by heat, lying down, pain meds/drugs and rest. Comments: This i s my first evaluation of the patient. Outside records from [facility] are available for review.Vik Goodwin) is a 53 y/o male here for initial consult for mid to low back pain with radiation down his R leg as well as R shoulder pain, referred by CAMILLE Clarke, through [facility]. Mid back pain is most bothersome. Pain started in high school d/t an unknown reason and has worsened over the years. He describes pain as shooting and sharp and rates the pain severity 8/10.He reports mid back pain located between his shoulder blades, which radiates down his BL legs (R>L), along with intermittent weakness. Walking on inclined surfaces worsens his pain. Back pain is described as tense and tight. Notes BL leg diabetic neuropathy. Completes dialysis 3x/week for kidney failure.Also has R shoulder pain, which has worsened since October 2022 after throwing a football. Has been told he needs rotator cuff surgery and has put it off.He has tried careers adviser and PT, without lasting relief. Has tried an unknown type of low back injection, which did not provide relief. Intends to start acupuncture. Previously followed with [facility]. He had previously tried gabapentin and lyrica, which caused him to feel off. Hydrocodone caused nausea.The patient is currently managed on oxycodone 10mg TID and tizanidine 2mg HS as needed. Cannabis is helpful for his anxiety, but cost-prohibitive. Tizanidine provides some relief for his low back and helps with sleep. He is interested in all treatment options through [facility]. No other concerns today.Treaments Tried: Oxycodone PT- not helpfulGabapentin- doesn't like the way he feelsTizanidine- run out takes at bedtimePregabalin- Increased BPOxycodone- Three times a dayCannabis- helpful, but can't afford itChiropractor Functional Status Date Functional Assessmen t No Information Instructions Date Instruction Additional Infor mation No Information Assessments Type Assessment Date assessment Type 2 diabetes mellitus with di abetic polyneuropathy Apr-16-2024 impression Dx of BL leg diabeti c neuropathy. Worse when walking on inclined surfaces assessment Chronic pain syndrome impression Jcarlos is a 53 y/o male here for follow up for mid to low back pain with radiation down his R leg as well as R shoulder pain. Mid back pain is most bothersome. Pain started in high school d/t an unknown reason and has worsened over the years assessment Pain in right shoulder impression R shoulder pain, whi ch has worsened since October 2022 after throwing a football. Has been told he needs rotator cuff surgery and has put it off. Will be starting PT soon assessment Other intervertebral disc degene ration, thoracic region impression Mid back pain is mos t bothersome. Located between his shoulder blades, which radiates down his BL legs (R>L), along with intermittent weakness. Walking on inclined surfaces worsens his pain. Back pain is described as tense and tight assessment Radiculopathy, lumbar region Jul impression Ongoing back pain wi th radiation down BL legs (R>L). A right L4-L5 TESI was ordered last visit, but he had to cancel d/t not having transportation and wanting MAC sedation. Asks if he should reschedule, despite having improved low back pain.Forwarded Hx: He has tried careers adviser and PT, without lasting relief. Previously followed with [facility] Myalgia, other site impression Mid back pain feels muscular, tense, and tight. Managed on tizanidine at night for sleep assessment care home (current) use of opiat e analgesic impression The patient is curre ntly managed on oxycodone 10mg TID and tizanidine 2mg HS as needed. Cannabis is helpful for his anxiety, but cost-prohibitive. Tizanidine provides some relief for his low back and helps with sleep.He had previously tried gabapentin and lyrica, which caused him to feel off. Hydrocodone caused nausea Mental Status Date Cognitive Assessment Orientation - [place] ed to time, place, person, situation. Patient Care Teams Name Effective Dates (start - stop) Status Members No Information
--- OUTSIDE RECORDS SUMMARY | 2023-08-16 05:00 | XMS_ITS | Continuity of Care Document ---
Author Organization [facility] Address [address] [place] [address] Phone Care Team Providers Care Electronic Publisher Name Role Phone Mary Park DNP Unavailable [...] Providers Copied on Encounter OFFICE/OUTPA TIENT VISIT, [facility], [address], [place], [id number] , [place] tel:[phone] [facility] [place] mid back pain (chief complaint) Type 2 diabetes mellitus with diabetic polyneuropathyChr onic pain syndromePain in right shoulderOther intervertebral disc degeneration, thoracic regionRadiculopat hy, lumbar regionMyalgia, other siteLong term (current) use of opiate analgesic 4 Vivian Hernandez. [address], [address], [id number], [place]. tel:[phone] Referring Provider: Rosamaria Garcia, [address], [address]. tel:[phone] OFFICE/OUTPA TIENT VISIT, [facility], [address], [place], [id number] , [place] tel:[phone] [facility] Mid back pain (chief complaint) Type 2 diabetes mellitus with diabetic polyneuropathyChr onic pain syndromePain in right shoulderOther intervertebral disc degeneration, thoracic regionRadiculopat hy, lumbar regionMyalgia, other siteLong term (current) use of opiate analgesic 4 Vivian Hernandez. [address] [facility] 11, [facility] [address], [place], [id number], [place]. tel:[phone] Referring Provider: Rosamaria Garcia [address], [address]. tel:[phone] OFFICE/OUTPA TIENT VISIT, [facility], [address], [place], [id number] , [place] tel:[phone] [facility] mid back pain (chief complaint) Chronic pain syndromeLong term (current) use of opiate analgesicPain in right shoulderMyalgia, other siteOther intervertebral disc degeneration, thoracic regionRadiculopat hy, lumbar regionType 2 diabetes mellitus with diabetic polyneuropathy 3 Vivian Hernandez. [address] [facility] [address], [address], [id number], [place]. tel:[phone] Referring Provider: Rosamaria Garcia [address], [address]. tel:[phone] Family History Family Member Type Diagnosis Age At Onset No Information Payers Payer name Insurance type Covered republican ID Authoriza tion(s) Medicare MB [id number] [employer] [place] And [facility] [id number] Social History Type Description Quantity Date Captured [...] Of Treatment Date Type Action Status Goal Weight. Due on d ue Goal Zoster vaccine (1st). Due on due Goal Hepatitis C screening. Due o n due Goal Tobacco Use. Due on due Goal PHQ-9. Due on du e Goal Unhealthy drug use screening . Due on due Goal AST (SGOT). Due on due Goal Height. Due on d ue Goal UDT. Due on due Goal Update Social History. Due o n due Goal FIT. Due on due Goal FIT-DNA. Due on due Goal NETWORK CABLE INSTALLER Scanned. Due on due Goal Lipid panel. Due on due Goal Review Allergy List. Due on due Goal CT-Colonography. Due on due Goal Medication Reconciliation. D ue on due Goal Creatinine. Due on due Goal ALT (SGPT). Due on due Goal ENDOSCOPE TECHNICIAN Paperwork. Due on due Goal OARS. Due on due Goal Order Annual PT. Due on due Goal ALT (SGPT). Due on due Goal OARS. Due on due Goal Review Allergy List. Due on due Goal NETWORK CABLE INSTALLER Scanned. Due on due Goal Height. Due [...] Order Annual PT. Due on due Goal ENDOSCOPE TECHNICIAN Paperwork. Due on due Goal AST (SGOT). Due on due Goal AST (SGOT). Due on due Goal ENDOSCOPE TECHNICIAN Paperwork. Due on due Goal ALT (SGPT). Due on due Goal NETWORK CABLE INSTALLER Scanned. Due on due Goal OARS. Due on due Goal Order Annual PT. Due on due Goal UDT. Due on due Goal Creatinine. Due on due Goal Review Allergy List. Due on due Goal Unhealthy drug use screening . Due on due Goal Height. Due on d ue Goal FIT. Due on due Goal Weight. Due on d ue Goal Hepatitis C screening. Due o n due Goal PHQ-9. Due on du e Goal Update Social History. Due o n due Goal Tobacco Use. Due on due Goal Medication Reconciliation. D ue on due Goal Zoster vaccine (). Due on due Goal CT-Colonography. Due on due Goal FIT-DNA. Due on due Goal Lipid panel. Due on due History Of Present Illness Encounter Date Complaint History Of Prese nt Illness Comments: Brandt shukla is a 53 y/o [...] pain. Has not received a call from [facility] regarding a previous order of a TENS [...] No other concerns today. mid back pain Duration: chroni c. The [...] massage, pain meds/drugs, rest and changing positions. mid back pain Severity level i s 8. Duration: chronic. It occurs persistently. Location of pain is middle back and legs. The client describes the pain as sharp and shooting. Symptoms are relieved by heat, lying down, pain meds/drugs and rest. Comments: This i s my first evaluation of the patient. Outside records from [facility] are available for review.Vik Goodwin) is a 53 y/o male here for initial consult for mid to low back pain with radiation down his R leg as well as R shoulder pain, referred by CAMILLE Clarke, through [facility]. Mid back pain is most bothersome. Pain [...] and has put it off.He has tried adult care provider and PT, without lasting relief. Has tried an unknown type of low back injection, which did not provide relief. Intends to start acupuncture. Previously followed with [facility]. He had previously tried gabapentin and lyrica, which caused him to feel off. Hydrocodone caused nausea.The patient is currently managed on oxycodone 10mg TID and tizanidine 2mg HS as needed. Cannabis is helpful for his anxiety, but cost-prohibitive. Tizanidine provides some relief for his low back and helps with sleep. He is interested in all treatment options through [facility]. No other concerns today.Treaments Tried: Oxycodone PT- [...] reason and has worsened over the years impression R shoulder pain, whi ch has worsened since October 2022 after throwing a football. Has been told he needs rotator cuff surgery and has put it off. Will be starting PT soon assessment Pain in right shoulder assessment Other intervertebral disc degene ration, thoracic [...] low back pain.Forwarded Hx: He has tried adult care provider and PT, without lasting relief. Previously followed with [facility] assessment Myalgia, other site impression Mid back pain feels muscular, tense, and tight. Managed on tizanidine at night for sleep assessment retirement (current) use of opiat e analgesic impression [...] Mental Status Date Cognitive Assessment Orientation - [place] ed to time, place, person, situation. Patient Care Teams Name Effective Dates (start - stop) Status Members No Information
--- OUTSIDE RECORDS SUMMARY | 2024-09-27 19:21 | XMS_ITS | Encounter Summary ---
Author Organization [facility] Address [address] [place] [address] Care Team Providers Care Custom Frame Assembler Name Role Phone Rosamaria Garcia PA-C Primary Care Provider + Reason for Referral * (Routine) - Pending Review Specialty Diagnoses / Procedures Referred By Contac t Referred To Contact Procedures Discharge Instructions Tasia Carty PA-C [address] [place] [id number] Phone: tel: fax: Referral ID Status Reason Start Date Expiration Date V isits Requested Visits Authorized [id number] Pending Review 09/28/2024 1 1 Reason for Visit * Reason Comments Other Bleeding from fistul a * Inpatient Admission (Routine) Specialty Diagnoses / Procedures Referred By Contac t Referred To Contact Diagnoses Bleeding Referral ID Status Reason Start Date Expiration Date Visits Re quested Visits Authorized [id number] 1 1 Encounter Details Date Type Department Care Team (Late st Contact Info) Description 09/27/2024 7:21 PM CDT - 09/28/2024 4:41 PM CDT Hospital Encounter [address] [place] [address] [id number] Adam Kimble MD [address] [place], [place] [address] Yazan Graham MD [address] [place], [place] [id number] Samson Billingsley DO [address] [id number] Bleeding Discharge Disposition: Returning Home/Self Care Social History Tobacco Use Types Packs/Day Years Used Date Smoking Tobacco: Never Smokeless Tobacco: Never Tobacco Cessation:Counseling Given: Not Answered Alcohol Use Standard Drinks/Week Comments Not Currently 0 (1 standard drink = 0.6 oz pur e alcohol) [facility] Utilities Answer Date Recorded In the past 12 months has th e electric, gas, oil, or water company threatened to shut off services in your home? No 09/27/2024 Humiliation, Afraid, Rape, and Kick questionnair e Answer Date Recorded Within the last year, have y ou been afraid of your partner or ex-partner? No 09/27/2024 Within the last year, have y ou been humiliated or emotionally abused in other ways by your partner or ex-partner? No Within the last year, have y ou been kicked, hit, slapped, or otherwise physically hurt by your partner or ex-partner? No 09/27/2024 Within the last year, have y ou been raped or forced to have any kind of sexual activity by your partner or ex-partner? No 09/27/2024 Hunger Vital Sign Answer Date Recorded Within the past 12 months, y ou worried that your food would run out before you got the money to buy more. Never true 09/28/19 25 Within the past 12 months, t he food you bought just didn't last and you didn't have money to get more. Never true 09/27/2024 PRAPARE - Transportation Answer Date Re corded In the past 12 months, has l ack of transportation kept you from medical appointments or from getting medications? No 08/31 In the past 12 months, has l ack of transportation kept you from meetings, work, or from getting things needed for daily living? No 09/27/2024 Housing Stability Vital Sign Answer David e Recorded In the last 12 months, was t here a time when you were not able to pay the mortgage or rent on time? No 09/27/2024 In the past 12 months, how m any times have you moved where you were living? 0 09/27/2024 At any time in the past 12 m [facility], were you homeless or living in a chcf (including now)? No 09/27/2024 Sex and Gender Information Value Date Recorded Sex Assigned at Not on file Legal Sex Male 4:52 PM CDT Gender Identity Not on file Sexual Orientation Not on file documented as of this encounter Last Filed Vital Signs Vital Sign Reading Time Taken Comments Blood Pressure 125/68 09/28/2024 3:25 PM CDT Pulse 93 09/28/2024 3:25 PM CDT Temperature 36.5 C (97.7 F) 09/28/2024 3:03 PM CDT Respiratory Rate 18 09/28/2024 3:03 PM CDT Oxygen Saturation 99% 09/28/2024 3:25 PM CDT Inhaled Oxygen Concentration - - Weight 60.3 kg (133 lb) 09/27/2024 10:41 PM CDT Height 153.7 cm (5' 0.5) 09/27/2024 10:41 PM CD T Body Mass Index 25.55 09/27/2024 10:41 PM CDT documented in this encounter Discharge Summaries * Samson Billingsley DO - 09/28/2024 3:34 PM CDT Images from the original note were not included. [facility] SUMMARY Patient Name: Vik Thakkar Date of : 1970 Attending Provider: Samson Billingsley DO Admission Date: 09/27/2024 Discharge Date: 09/28/2024 He will be discharged on 09/28/2024 to home. DISCHARGE DIAGNOSES: Bleeding right femoral [place] and right AVG HOSPITAL COURSE: 54yo M w/pmhx of ESRD on HD MWF, DM, HTN, gastroparesis, GERD, HLD, Anxiety/depression, colon cancer is admitted for bleeding from newly placed R dialysis fistula and femoral PCAD site. RUE was placed in compression dressing and bleeding appears to have stopped. P CAD site still had some oozing, the refore he was hospitalized to the observation service. He was seen by vascular surgery, we have cleared him to resume his baby aspirin 81 mg. He was given wound care instructions and to follow-up as outpatient on 10/11/2024 at 1045 from the surgery center. He has been cleared to be DC'd by vascular.He had mild hyperkalemia due to under dialysis. His potassium prior to dialysis was 5.8, given a dose of Lasix and improved to 5.5. He then was seen by nephrology and underwent dialysis afterwards and therefore anticipate his K to be improving. Discussed with Dr. Pritchard, cleared to be discharged fromnephrology as well. On day of DC, he denies any acute concerns. No further bleeding issues. He was DC'd in stable condition. Of note, for any future hospitalizations, per vascular he should not get PICC line due to limited access options and SVC stenosis. DISCHARGE EXAM: GENERAL APPEARANCE: He is awake, alert and in no acute distress. HEENT: Head - Normocephalic, atraumatic. Eyes - Normal lids and conjuntivae, PERRLA, EOMs intact. Nose - No deformity. Moist mucous membranes. NECK: Supple RESPIRATORY: Good air entry, no wheezes, no rhonchi, no rales, no work of breathing CARDIOVASCULAR: Normal S1, normal S2, regular rate no murmur. GASTROINTESTINAL: Soft, non-tender, normal bowel sounds, non-distended, no rebound SKIN: Intact, warm, dry. no rashes NEUROLOGIC: Alert and oriented X 3, moves all extremities equally. Non-focal exam, power 5/5 in UE,sensation grossly intact EXTREMITIES: RUE wrapped, small spot of blood noted but reportedly this is unchanged, no swelling, pain, pulses intact LABS Recent Labs 09/27/24195109/28/24 0437 WBC 10.4 -- RBC 3.28* -- HEMOGLOBIN 10.8* 10.0* HEMATOCRIT 32.8* -- MCV 100 -- MCH 33 -- RDW 14.2 -- PLATELETCT 149* -- Recent Labs 09/27/241951 INR 1.0 PTT 39.6* Recent Labs 09/27/24195109/28/24 0437 09/28/24 0928 SODIUM 133* 134* -- POTASSIUM 5.3* 5.8* 5.5* CHLORIDE 104 102 -- CARBONDIOXI 19* 20 -- ANIONGAP 10.0 12.0 -- GLUCOSE 103 119* -- BUNUREANRO 38* 41* -- CREATININE 11.48* 12.16* -- CALCIUMSERUM 9.2 9.2 -- ESTGFRMDRD 4.81* 4.49* -- ABG: No Lab Results Found (last 72 hours) VBG: No Lab Results Found (last 72 hours) Invalid input(s): O2SV Micro: No results found for this visit on 09/27/24. Wound: Surgical/Procedure Site Incision Right;Upper;Anterior Thigh (Active) First Observed/Origin Date: 09/27/24 Primary Wound Type: Surgical/Procedure Site Incision Type: Incision Orientation: Right;Upper;Anterior Location: Thigh PROCEDURES: IMAGING No results found. DISCHARGE MEDICATIONS: Current Discharge Medication List MEDICATIONS CONTINUED UNCHANGED Details amLODIPine (NORVASC) 10 mg oral tablet Take 1 tablet (10 mg) by mouth once daily. aspirin 81 mg oral enteric coated tablet Take 1 tablet (81 mg) by mouth once daily. atorvastatin (LIPITOR) 40 mg oral tablet Take 1 tablet (40 mg) by mouth at bedtime. dicyclomine (BENTYL) 20 mg oral tablet Take 1 tablet (20 mg) by mouth twice a day as needed (IBS). ferric citrate 210 mg iron oral Tab Take 3 tablets (630 mg) by mouth three times a day with meals. metoclopramide HCl (REGLAN) 5 mg oral tablet Take 0.5 tablets (2.5 mg) by mouth twice a day as needed. metoprolol tartrate (LOPRESSOR) 25 mg oral tablet Take 1 tablet (25 mg) by mouth twice a day. nortriptyline (PAMELOR) 10 mg oral capsule Take 2 capsules (20 mg) by mouth at bedtime. ondansetron (ZOFRAN) 8 mg oral ODT Dissolve 1 tablet (8 mg) in mouth every 8 (eight) hours as needed (nausea/vomiting). oxyCODONE, immediate release, (ROXICODONE) 10 mg oral tablet Take 1.5 tablets (15 mg) by mouth fourtimes a day. polyethylene glycol (MIRALAX) 17 gram oral packet Take 17 g by mouth once a day as needed for constipation. Mix each dose in 4-8 ounces of liquid as directed. senna (SENOKOT) 8.6 mg oral tablet Take 1 tablet (8.6 mg) by mouth twice a day as needed (constipation). tiZANidine (ZANAFLEX) 2 mg oral tablet Take 1 tablet (2 mg) by mouth twice a day as needed (muscle spasms). PENDING TEST RESULTS: FOLLOWUP: Discharge Procedure Orders Discharge Instructions A follow-up has been scheduled for you at the [facility] on 10/11/24 at 1045.Please arrive to [address] [place] [address], [address], [place], [place] at that time. Please call [phone] if you have any questions, concerns, or need to cancel/change your appointment. Total time spent on the day of discharge was Time: over 30 minutes including discharge planning, discussion with the patient, family, vascular surgery, nephrology, case management, RN, chart reviewing, and completing the discharge summary. Samson Billingsley DO [facility] Medicine documented in this encounter Medications at Time of Discharge amLODIPine (NORVASC) 10 mg oral tablet Take 1 tablet (10 mg) by mouth once daily. aspirin 81 mg oral enteric coated tablet Take 1 tablet (81 mg) by mouth once daily. atorvastatin (LIPITOR) 40 mg oral tablet Take 1 tablet (40 mg) by mouth at bedtime. dicyclomine (BENTYL) 20 mg oral tablet Take 1 tablet (20 mg) by mouth twice a day as needed (IBS). ferric citrate 210 mg iron oral Tab Take 3 tablets (630 mg) by mouth three times a day with meals. metoclopramide HCl (REGLAN) 5 mg oral tablet Take 0.5 tablets (2.5 mg) by mouth twice a day as needed. metoprolol tartrate (LOPRESSOR) 25 mg oral tablet Take 1 tablet (25 mg) by mouth twice a day. nortriptyline (PAMELOR) 10 mg oral capsule Take 2 capsules (20 mg) by mouth at bedtime. ondansetron (ZOFRAN) 8 mg oral ODT Dissolve 1 tablet (8 mg) in mouth every 8 (eight) hours as needed (nausea/vomiti ng). oxyCODONE, immediate release, (ROXICODONE) 10 mg oral tablet Take 1.5 tablets (15 mg) by mouth four times a day. polyethylene glycol (MIRALAX) 17 gram oral packet Take 17 g by mouth once a day as needed for constipation. Mix each dose in 4-8 ounces of liquid as directed. senna (SENOKOT) 8.6 mg oral tablet Take 1 tablet (8.6 mg) by mouth twice a day as needed (constipation) . tiZANidine (ZANAFLEX) 2 mg oral tablet Take 1 tablet (2 mg) by mouth twice a day as needed (muscle spasms). documented as of this encounter Progress Notes * Melinda Rosas RN - 09/28/2024 4:41 PM CDT Vik Thakkar 1970 [id number] P: Discharge A: Discharged via wheelchair to home at 1641 escorted by nurse and self I: Discharge information and arrangements included: review of written discharge instructions, belongings list completed. R:Patient expressed understanding of information. * Melinda Rosas RN - 09/28/2024 4:41 PM CDT Med-Surg Care Progression Note Type: Admission summary Length of stay: 0 days Code Status: Full Code Primary Problem: Bleeding Hx: ESRD on HD MWF, DM, HTN, gastroparesis, GERD, HLD, Anxiety/depression, colon cancer Summary: During shift patient remained alert, oriented and able to make needs known. Pressure bandages to RUE assessed and changed by Vascular surgery. HD during shift, tolerated. F- Feeding & Fluids: Tolerated Renal diet and thin liquids. Takes meds whole. A- Analgesic & Anticoagulation: Analgesic Scheduled Oxycodone effective in pain management Anticoagulation/DVT prevention & plan SCDs S- Skin: Total Alberto Score: 20 T- Telemetry: Rhythm: Sinus Rhythm No tele E- Emotional & Neuro: Participating in cares Neuro Alert and Oriented R- Respiratory: On room air H- Head OUT of Bed & Activity: Activate Fall Alert? (Enter 1 or 0): 0 Ambulating SBA U- Urologic/bowel: No data recorded continent of B&B. G- Glycemic Control: Accuchecks QID T- Treatment: Labs , monitor s/s of bleeding, vascular consult, nephrology following I- Invasive Devices: PIV x1, new R AV fistula, L AV fistula-not working D- Discharge: Anticipated discharge home following HD today * Jose De Jesus Blanchard RN - 09/28/2024 3:18 PM CDT Dialysis - Vik Thakkar dialyzed for 3.5 hours on a Nipro SteelBrickio dialyzer and had a net fluid removal of 1 L. A BFR of 330 ml/min was obtained via a R Femoral PCAD. Pt received 0 units of 1:1000 heparin during treatment and had heparin instilled in both ports postrun. Pt on K2 bath. Complications: None. Meds given on run: None. Pt education provided and dialysis procedure and all questions answered. Consent on file. Chronic unit M-W-F. See flowsheet in EPIC for further details. Water alarm in place during treatment. JOSE DE JESUS BLANCHARD RN [facility] Potassium Date Value Ref Range Status 09/28/2024 5.5 (H) 3.4 - 5.1 mmol/L Final 09/28/2024 5.8 (H) 3.4 - 5.1 mmol/L Final 09/27/2024 5.3 (H) 3.4 - 5.1 mmol/L Final Hemoglobin Date Value Ref Range Status 09/28/2024 10.0 (L) 14.0 - 18.0 gm/dL Final 09/27/2024 10.8 (L) 14.0 - 18.0 gm/dL Final * Amaury Worthington MD - 09/28/2024 10:33 AM CDT I would not place a PICC in this patient He has very limited access options and svc stenosis He does not need IV abx or other meds * Mike Robison RN - 09/28/2024 6:50 AM CDT Med-Surg Care Progression Note Type: Admission summary Length of stay: 0 days Code Status: Full Code Primary Problem: Bleeding Hx: ESRD on HD MWF, DM, HTN, gastroparesis, GERD, HLD, Anxiety/depression, colon cancer Summary: Transfer from [place] ED for evaluation of bleeding from newly placed R AV fistula and femoral PCAD site. Pt A&O, afebrile, no cp, sob. Pt c/o nausea, PRN compazine given w/ good effect. F- Feeding & Fluids: Renal diet and thin liquids. Takes meds whole. A- Analgesic & Anticoagulation: Analgesic C/o pain 10/10 in RUE. PHLEBOTOMY PROGRAM COORDINATOR Zanaflex given w/ little effect. PRN 0.5 mg IV dilaudid given w/ good effect. Anticoagulation/DVT prevention & plan SCDs S- Skin: Total Alberto Score: 20: pt ambulatory at baseline, able to turn and repo independently. Pressure bandages to RUE intact, drainage noted. Dressing to RLE CDI. T- Telemetry: No tele E- Emotional & Neuro: Participating in cares Neuro Alert and Oriented R- Respiratory: On room air H- Head OUT of Bed & Activity: Activate Fall Alert? (Enter 1 or 0): 0 Ambulating SBA U- Urologic/bowel: No data recorded continent of B&B. G- Glycemic Control: Accuchecks QID T- Treatment: Labs , monitor s/s of bleeding, vascular consult, nephrology following I- Invasive Devices: PIV x1, new R AV fistula, L AV fistula-not working D- Discharge: TBD. Comes from home w/ son. * Mike Robison RN - 09/28/2024 6:06 AM CDT 09/28/24 0604 Critical Lab, Echo Test Results Time Unit Notified of Critical Value 0604 Critical Value creat 12.16 Action Taken MD/Provider Notified (Santos KENYON) BP (!) 138/58 Pulse 69 Temp 98.1 ??F (36.7 ??C) Resp 18 Ht 1.537 m (5' 0.5) Wt 60.3 kg (133 lb) SpO2 99% BMI 25.55 kg/m?? Pt has ESRD and is a dialysis pt. * Mike Robison RN - 09/27/2024 10:45 PM CDT P. Admission A. Condition on Admit: alert. Patient/Family Concerns: Patient expressed concern about getting bedtime BP medications. . I. Initial Interventions included: released signed and held orders and gave BP meds at ordered. Orientation to Unit: Patient oriented to how to call for help, name of assigned reproductive healthcare assistant, belongings checklist, unit and plan of care. R. Patient expressed understanding of information.. documented in this encounter H&P Notes * Yazan Graham MD - 09/27/2024 8:20 PM CDT ADMISSION HISTORY AND PHYSICAL Patient Name: Vik Thakkar Address: [address] [address] Age: 54 y.o. Sex: male Admission Date/Time: 09/27/2024 7:21 PM Primary Care Provider: Rosamaria Garcia PA-C Informant: patient CHIEF COMPLAINT: bleeding from femoral PCAD site and R AV dialysis fistula HPI: This is a 54yo M w/pmhx of ESRD on HD MWF, DM, HTN, gastroparesis, GERD, HLD, Anxiety/depression, colon cancer is admitted for bleeding from newly placed R dialysis fistula and femoral PCAD site. Pt transferred here from [place] ED where he had presented for evaluation of bleeding from his fistula and cath site. Per report, he was having issues with his L arm fistula and underwent a scheduled R arm fistula + Femoral pcad placement today with [facility]. He states that hereceived heparin and had bleeding post procedure but the team was able to control it prior to discharge. On his way home he started bleeding again (from both sites) and was taken to the [place] ED. Gelfoam was placed and LUE wrapped and case discussed with VS team who recommended transfer here. On arrival to the ED here labs revealed hgb 10.8 down from 11 at previous ED, K 5.3 cr 11.48. On my evaluation oozing noted from femoral cath site, ED plans on changing his dressings. Vascular surgery team aware of pt , will see formally in AM Pt otherwise denies any cp, shob, nvd, abdominal pain, fever, chills, cough, recent illness He is due for HD tomorrow. PAST MEDICAL HISTORY: ESRD on HD MWF, DM, HTN, gastroparesis, GERD, HLD, Anxiety/depression, colon cancer PAST SURGICAL HISTORY: No past surgical history on file. PRIOR TO ADMISSION MEDICATIONS: No current facility-administered medications on file prior to encounter. Current Outpatient Medications on File Prior to Encounter Medication Sig Dispense Refill amLODIPine (NORVASC) 10 mg oral tablet Take 1 tablet (10 mg) by mouth once daily. aspirin 81 mg oral enteric coated tablet Take 1 tablet (81 mg) by mouth once daily. atorvastatin (LIPITOR) 40 mg oral tablet Take 1 tablet (40 mg) by mouth at bedtime. dicyclomine (BENTYL) 20 mg oral tablet Take 1 tablet (20 mg) by mouth twice a day as needed (IBS). ferric citrate 210 mg iron oral Tab Take 3 tablets (630 mg) by mouth three times a day with meals. metoclopramide HCl (REGLAN) 5 mg oral tablet Take 0.5 tablets (2.5 mg) by mouth twice a day as needed. metoprolol tartrate (LOPRESSOR) 25 mg oral tablet Take 1 tablet (25 mg) by mouth twice a day. nortriptyline (PAMELOR) 10 mg oral capsule Take 2 capsules (20 mg) by mouth at bedtime. ondansetron (ZOFRAN) 8 mg oral ODT Dissolve 1 tablet (8 mg) in mouth every 8 (eight) hours as needed (nausea/vomiting). oxyCODONE, immediate release, (ROXICODONE) 10 mg oral tablet Take 1.5 tablets (15 mg) by mouth fourtimes a day. polyethylene glycol (MIRALAX) 17 gram oral packet Take 17 g by mouth once a day as needed for constipation. Mix each dose in 4-8 ounces of liquid as directed. senna (SENOKOT) 8.6 mg oral tablet Take 1 tablet (8.6 mg) by mouth twice a day as needed (constipation). tiZANidine (ZANAFLEX) 2 mg oral tablet Take 1 tablet (2 mg) by mouth twice a day as needed (muscle spasms). ALLERGIES: Adhesive tape-silicones, Dilaudid [hydromorphone], Lisinopril, and Penicillins FAMILY HISTORY: No family history on file. SOCIAL HISTORY: Social History Socioeconomic History Marital status: Single Spouse name: Not on file Number of children: Not on file Years of education: Not on file Highest education level: Not on file Occupational History Not on file Tobacco Use Smoking status: Not on file Smokeless tobacco: Not on file Substance and Sexual Activity Alcohol use: Not on file Drug use: Not on file Sexual activity: Not on file Other Topics Concern Not on file Social History Narrative Not on file Social Drivers of Health Food Insecurity: No Food Insecurity (07/05/2024) Received from [employer] [facility] Food Insecurity Do you worry your food will run out before you are able to buy more?: 1 Transportation Needs: No Transportation Needs (07/05/2024) Received from [employer] [facility] Transportation Needs Does lack of transportation keep you from medical appointments?: 1 Does lack of transportation keep you from work, meetings or getting things that you need?: 1 Intimate Partner Violence: Not At Risk (09/27/2024) Humiliation, Afraid, Rape, and Kick questionnaire Fear of Current or Ex-Partner: No Emotionally Abused: No Physically Abused: No Sexually Abused: No Housing Stability: Low Risk (07/05/2024) Received from [employer] [facility] Housing Stability What is your housing situation today?: 1 REVIEW OF SYSTEMS: A comprehensive review of systems was negative except for items noted in the HPI/Subjective PHYSICAL EXAM: BP (!) 160/63 Pulse 62 Temp 97.6 ??F (36.4 ??C) Resp 14 Ht 5' 5 (1.651 m) SpO2 99% General appearance: awake and alert HEENT: Head - normocephalic, atraumatic Eyes - normal lids and conjunctivae, PERRLA, EOMs intact NECK: supple, tracheal midline, no tracheal deviation, no crepitus, no palpable lymphadenopathy, nomasses, no thyromegaly, Carotids: no bruits RESPIRATORY: lungs clear to auscultation and percussion, normal diaphragmatic movement, chest symmetrical CARDIOVASCULAR: normal S1, normal S2, regular rhythm GASTROINTESTINAL: soft, non-tender, round, flat, no hepatosplenomegaly or palpable masses HEME/LYMPH/IMMUNOLOGIC: bleeding noted from femoral cath site MUSCULOSKELETAL: without deformity SKIN: intact, warm, dry NEUROLOGIC: alert and oriented x 4, moves all extremities EXTREMITIES: RUE wrapped, small spot of blood noted but reportedly this is unchanged, no swelling, pain, pulses intact PSYCHOLOGICAL/JUDGEMENT: intact/normal LABS: Results for orders placed or performed during the hospital encounter of 09/27/24 (from the past 24 hours) CBC Result Value Ref Range WBC 10.4 4.3 - 10.8 K/uL RBC 3.28 (L) 4.60 - 6.20 M/uL Hemoglobin 10.8 (L) 14.0 - 18.0 gm/dL Hematocrit 32.8 (L) 40.0 - 54.0 % MCV 100 80 - 100 fL MCH 33 27 - 33 pg MCHC 33 33 - 36 gm/dL RDW 14.2 11.5 - 14.5 % Platelet Count 149 (L) 150 - 400 K/UL MPV 10.2 6.5 - 12 fL ASSESSMENT: This is a 54yo M w/pmhx of ESRD on HD MWF, DM, HTN, gastroparesis, GERD, HLD, Anxiety/depression, colon cancer is admitted for bleeding from newly placed R dialysis fistula and femoral PCAD site. Principal Problem: Bleeding PLAN: Bleeding from R dialysis fistula and R femoral PCAD site- placed today Hgb slightly lower from earlier today 10.8( 11) RUE in compression dressing- bleeding appears controlled at this site, pcad site with oozing, ED plans to redress. Vascular surgery aware of pt, formal eval in AM Continue to monitor bleeding overnight, Repeat hgb in AM Pt is otherwise HDS- monitor vitals Hold PHLEBOTOMY PROGRAM COORDINATOR ASA tonight- resume once cleared by Vascular ESRD on HD K 5.3, CO2 19, cr 11.48 Last HD wed Nephrology consult in AM to assist with HD needs- due for HD tomorrow HTN Resume PHLEBOTOMY PROGRAM COORDINATOR blood pressure regimen in AM granted that his pressures stay stable overnight- no concerns at this time. Chronic pain Resume PHLEBOTOMY PROGRAM COORDINATOR oxycodone History of gastroparesis PHLEBOTOMY PROGRAM COORDINATOR MiraLAX, senna, dicyclomine DM -BG 103, not on any PHLEBOTOMY PROGRAM COORDINATOR regimen, monitor glucose Anxiety/depression PHLEBOTOMY PROGRAM COORDINATOR nortriptyline Pharmacy consult to assist with med reconciliation CODE STATUS: Full Code DVT prophylaxis: scd GI prophylaxis: none ACCESS: piv RESTRAINTS: none DISPOSITION: Anticipated date of discharge <2midnights LENGTH OF STAY: OBS - Anticipated LOS <2 Midnights due to need for diagnostic workup of acute condition Time: 55 minutes Yazan Graham MD documented in this encounter Consult Notes * Tasia Carty PA-C - 09/28/2024 9:14 AM CDTAssociated Order(s): CONSULT VASCULAR SURGERY [facility] Patient Name: Vik Thakkar Address: [address] [address] Age:54 y.o. Sex: male Admission Date/Time: 09/27/2024 7:21 PM Hospital Attending Physician: Samson Billingsley DO Primary Care Provider: Rosamaria Garcia PA-C Vascular surgery was requested to see this patient in consultation by Dr. Graham for evaluation of bleeding PCAD and AVF. HPI: The patient is 54 y.o. male admitted on 09/27/2024 with past medical history of ESRD on HD (MWF), DM, HTN, and HLD presents with bleeding dialysis sites. He had right femoral tunneled dialysis catheter and right AVG placement [place] [facility] [place]. His right arm and groin began to bleed post procedure which stopped with gelfoam and pressure dressing. He states bleeding reoccurred when he was on his way home prompting him to go to the ED. No further bleeding reported overnight. He is due for HD today. Reports soreness around his right upper arm incisions. No other complaints. He denies chills, fever, HERNANDEZ, dizziness, SOB, chest pain, palpitations, abdominal pain, N/V, or any other com plaints at this time. REVIEW OF SYSTEMS: Comprehensive ROS complete and negative except as noted in HPI above. PAST MEDICAL HISTORY: No past medical history on file. PAST SURGICAL HISTORY: No past surgical history on file. CURRENT MEDS: Current Outpatient Medications on File Prior to Encounter Medication Sig Dispense Refill amLODIPine (NORVASC) 10 mg oral tablet Take 1 tablet (10 mg) by mouth once daily. aspirin 81 mg oral enteric coated tablet Take 1 tablet (81 mg) by mouth once daily. atorvastatin (LIPITOR) 40 mg oral tablet Take 1 tablet (40 mg) by mouth at bedtime. dicyclomine (BENTYL) 20 mg oral tablet Take 1 tablet (20 mg) by mouth twice a day as needed (IBS). ferric citrate 210 mg iron oral Tab Take 3 tablets (630 mg) by mouth three times a day with meals. metoclopramide HCl (REGLAN) 5 mg oral tablet Take 0.5 tablets (2.5 mg) by mouth twice a day as needed. metoprolol tartrate (LOPRESSOR) 25 mg oral tablet Take 1 tablet (25 mg) by mouth twice a day. nortriptyline (PAMELOR) 10 mg oral capsule Take 2 capsules (20 mg) by mouth at bedtime. ondansetron (ZOFRAN) 8 mg oral ODT Dissolve 1 tablet (8 mg) in mouth every 8 (eight) hours as needed (nausea/vomiting). oxyCODONE, immediate release, (ROXICODONE) 10 mg oral tablet Take 1.5 tablets (15 mg) by mouth fourtimes a day. polyethylene glycol (MIRALAX) 17 gram oral packet Take 17 g by mouth once a day as needed for constipation. Mix each dose in 4-8 ounces of liquid as directed. senna (SENOKOT) 8.6 mg oral tablet Take 1 tablet (8.6 mg) by mouth twice a day as needed (constipation). tiZANidine (ZANAFLEX) 2 mg oral tablet Take 1 tablet (2 mg) by mouth twice a day as needed (muscle spasms). The patient's medication list was reviewed. ALLERGIES/SENSITIVITIES: Allergies Allergen Reactions Adhesive Tape-Silicones Unknown Dilaudid [Hydromorphone] Nausea Lisinopril Other Angioedema Penicillins Unknown FAMILY HISTORY: No family history on file. SOCIAL HISTORY: Social History Socioeconomic History Marital status: Single Spouse name: Not on file Number of children: Not on file Years of education: Not on file Highest education level: Not on file Occupational History Not on file Tobacco Use Smoking status: Never Smokeless tobacco: Never Substance and Sexual Activity Alcohol use: Not Currently Drug use: Not Currently Sexual activity: Not on file Other Topics Concern Not on file Social History Narrative Not on file Social Drivers of Health Food Insecurity: No Food Insecurity (09/27/2024) Hunger Vital Sign Worried About Running Out of Food in the Last Year: Never true Ran Out of Food in the Last Year: Never true Transportation Needs: No Transportation Needs (09/27/2024) PRAPARE - Transportation Lack of Transportation (Medical): No Lack of Transportation (Non-Medical): No Intimate Partner Violence: Not At Risk (09/27/2024) Humiliation, Afraid, Rape, and Kick questionnaire Fear of Current or Ex-Partner: No Emotionally Abused: No Physically Abused: No Sexually Abused: No Housing Stability: Low Risk (09/27/2024) Housing Stability Vital Sign Unable to Pay for Housing in the Last Year: No Number of Times Moved in the Last Year: 0 Homeless in the Last Year: No PHYSICAL EXAM: BP (!) 115/49 Pulse 72 Temp 98.1 ??F (36.7 ??C) Resp 18 Ht 5' 0.5 (1.537 m) Wt 60.3 kg (133 lb) SpO2 100% BMI 25.55 kg/m?? Body mass index is 25.55 kg/m??. Consitutional: No acute distress HEENT: Normocephalic, atraumatic. No scleral icterus. EOM???s intact. Neck: Supple, non-tender, trachea midline. Heart: RRR. Lungs: Normal diaphragmatic movement, no respiratory distress. Abdomen: Soft, non-tender, non-distended. Skin: Warm and dry in all extremities. + thrill in AVG. 3 arm incisions and right groin site dressing saturated in dried blood. Dressing was removed without evidence of active bleeding from incisions. R hand with mild amount of edema. + TTP along arm incisions. RUE incisions were dressed with gauze, kerlix, and ROMA wrap from hand to upper arm. Gauze and medipore tape placed over right groin PCAD. Extremities: Palpable radial and DP and PT pulses bilaterally, no edema, cyanosis or clubbing. No deformities. Motor: Strength is 5/5 throughout the upper and lower extremities Sensation: Intact to light palpation Mental status: Alert and Oriented x 3, speech is fluent. Appropriate mood and affect. LABS: Recent Labs 09/27/24195109/28/24436 WBC 10.4 -- RBC 3.28* -- HEMOGLOBIN 10.8* 10.0* HEMATOCRIT 32.8* -- MCV 100 -- MCH 33 -- RDW 14.2 -- PLATELETCT 149* -- Recent Labs 09/27/24195109/28/24436 SODIUM 133* 134* POTASSIUM 5.3* 5.8* CHLORIDE 104 102 CARBONDIOXI 19* 20 ANIONGAP 10.0 12.0 GLUCOSE 103 119* BUNUREANRO 38* 41* CREATININE 11.48* 12.16* CALCIUMSERUM 9.2 9.2 ESTGFRMDRD 4.81* 4.49* No Lab Results Found (last 72 hours) IMAGING: No new pertinent PLAN/RECOMMENDATIONS: 54 y.o. male presents with bleeding right femoral PCAD and right AVG placement yesterday - Case d/w Dr Worthington - Hgb stable, 10.8 yesterday to 10 today - No active bleeding, dialysis sites with new dressing in place - Okay to resume home 81mg ASA - He is aware of wound care instructions and follow up appt (10/11/24 at 1045) given to him yesterday from surgery center - Stable for discharge form vascular standpoint, due for HD today - Rest of care as per primary Vascular signing off. Call with questions. Tasia Carty PA-C [facility] Pager [phone] * Duglas Cunha MD - 09/28/2024 8:58 AM CDTAssociated Order(s): CONSULT NEPHROLOGY Images from the original note were not included. RENAL CONSULTATION Patient Name: Vik Thakkar Address: [address] [facility] [address] Age: 54 y.o. Sex: male Admission Date/Time: 09/27/2024 7:21 PM Primary Care Provider: Rosamaria Garcia PA-C Informant: patient, outpatient record, and inpatient record ASSESSMENT / PLAN: 1. ESRD on HD Follows with Dr Vital at [facility]. Last dialysis 09/26 for a shortened run - Had R-AVG placement 09/27, complicated by post-procedural bleeding. Still has femoral PCAD access - Should be able to use AVG in 2 weeks. - Had L-AVG but clotted - Prescription: 180NRe, BFR 450, DFR 1.5 aurto, K 2, Na 138, EDW 59.5, run time 3:15, Ca 2.5, bicarb 25 - Will plan for dialysis today, 3.5hrs 2. Electrolytes Potassium 5.8 in the setting of ESRD and shortened HD run on Tuesday - Will plan for dialysis today 3. CKD-MB On velphoro 500mg 2 tabs with meals - Ca 9.2, phos pending 4. Volume/BP EDW 59.5, vin plan on 1-2L UF as tolerated - sBP 110-120 inpatient 5. Anemia Hgb 10.0, at goal for ESRD - Tranfuse as needed, no ongoing bleeding noted. - Vascualr to see patient today to assess bleeding from RUE AVG and R femoral PCAD. - No acute interventions per vascular. OK to use AVG in 2 weeks Duglas Cunha MD [facility] [phone] CHIEF COMPLAINT: Dialysis access complication HPI: This is a 54 year old male with a PMHx significant for ESRD (on HD [facility] at [facility] under the care of Dr Vital,) DMT2, hypertension, GERD, hyperlipidemia, who presents for bleeding from newly placed right upper extremity AV graft. He also has bleeding form his right femoral PCAD. New access placed 09/27/24 He had no chest pain and denies shortness of breath. EDW 59.5 and was 60.3kg on admission. Patient has poor vascular access and had AVG on left side but this clotted in June 2024. PAST MEDICAL HISTORY: No past medical history on file. PAST SURGICAL HISTORY: No past surgical history on file. PRIOR TO ADMISSION MEDICATIONS: Prior to Admission Medications Prescriptions Last Dose Informant Patient Reported? Taking? amLODIPine (NORVASC) 10 mg oral tablet 09/27/2024 Patient Yes Yes Sig: Take 1 tablet (10 mg) by mouth once daily. aspirin 81 mg oral enteric coated tablet 09/27/2024 Patient Yes Yes Sig: Take 1 tablet (81 mg) by mouth once daily. atorvastatin (LIPITOR) 40 mg oral tablet 09/26/2024 Patient Yes Yes Sig: Take 1 tablet (40 mg) by mouth at bedtime. dicyclomine (BENTYL) 20 mg oral tablet PRN Patient Yes Yes Sig: Take 1 tablet (20 mg) by mouth twice a day as needed (IBS). ferric citrate 210 mg iron oral Tab 09/26/2024 Patient Yes Yes Sig: Take 3 tablets (630 mg) by mouth three times a day with meals. metoclopramide HCl (REGLAN) 5 mg oral tablet PRN Patient Yes Yes Sig: Take 0.5 tablets (2.5 mg) by mouth twice a day as needed. metoprolol tartrate (LOPRESSOR) 25 mg oral tablet 09/27/2024 Morning Patient Yes Yes Sig: Take 1 tablet (25 mg) by mouth twice a day. nortriptyline (PAMELOR) 10 mg oral capsule 09/26/2024 Patient Yes Yes Sig: Take 2 capsules (20 mg) by mouth at bedtime. ondansetron (ZOFRAN) 8 mg oral ODT PRN Patient Yes Yes Sig: Dissolve 1 tablet (8 mg) in mouth every 8 (eight) hours as needed (nausea/vomiting). oxyCODONE, immediate release, (ROXICODONE) 10 mg oral tablet 09/26/2024 Patient Yes Yes Sig: Take 1.5 tablets (15 mg) by mouth four times a day. polyethylene glycol (MIRALAX) 17 gram oral packet PRN Patient Yes Yes Sig: Take 17 g by mouth once a day as needed for constipation. Mix each dose in 4-8 ounces of liquid as directed. senna (SENOKOT) 8.6 mg oral tablet PRN Patient Yes Yes Sig: Take 1 tablet (8.6 mg) by mouth twice a day as needed (constipation). tiZANidine (ZANAFLEX) 2 mg oral tablet PRN Patient Yes Yes Sig: Take 1 tablet (2 mg) by mouth twice a day as needed (muscle spasms). Facility-Administered Medications: None ALLERGIES: Adhesive tape-silicones, Dilaudid [hydromorphone], Lisinopril, and Penicillins FAMILY HISTORY: No family history on file. SOCIAL HISTORY: Social History Socioeconomic History Marital status: Single Spouse name: Not on file Number of children: Not on file Years of education: Not on file Highest education level: Not on file Occupational History Not on file Tobacco Use Smoking status: Never Smokeless tobacco: Never Substance and Sexual Activity Alcohol use: Not Currently Drug use: Not Currently Sexual activity: Not on file Other Topics Concern Not on file Social History Narrative Not on file Social Drivers of Health Food Insecurity: No Food Insecurity (09/27/2024) Hunger Vital Sign Worried About Running Out of Food in the Last Year: Never true Ran Out of Food in the Last Year: Never true Transportation Needs: No Transportation Needs (09/27/2024) PRAPARE - Transportation Lack of Transportation (Medical): No Lack of Transportation (Non-Medical): No Intimate Partner Violence: Not At Risk (09/27/2024) Humiliation, Afraid, Rape, and Kick questionnaire Fear of Current or Ex-Partner: No Emotionally Abused: No Physically Abused: No Sexually Abused: No Housing Stability: Low Risk (09/27/2024) Housing Stability Vital Sign Unable to Pay for Housing in the Last Year: No Number of Times Moved in the Last Year: 0 Homeless in the Last Year: No REVIEW OF SYSTEMS: The remainder of a comprehensive review of systems was negative except for items noted in the HPI/Subjective. PHYSICAL EXAM: BP (!) 115/49 Pulse 72 Temp 98.1 ??F (36.7 ??C) Resp 18 Ht 5' 0.5 (1.537 m) Wt 60.3 kg (133 lb) SpO2 100% BMI 25.55 kg/m?? Physical Exam Constitutional: General: He is not in acute distress. Appearance: Normal appearance. He is not ill-appearing, toxic-appearing or diaphoretic. HENT: Mouth/Throat: Mouth: Mucous membranes are moist. Eyes: Extraocular Movements: Extraocular movements intact. Pupils: Pupils are equal, round, and reactive to light. Cardiovascular: Rate and Rhythm: Normal rate and regular rhythm. Pulses: Normal pulses. Pulmonary: Effort: Pulmonary effort is normal. Abdominal: General: Abdomen is flat. Musculoskeletal: General: Normal range of motion. Skin: General: Skin is warm. Neurological: General: No focal deficit present. Mental Status: He is alert and oriented to person, place, and time. Psychiatric: Mood and Affect: Mood normal. IMAGING: No image results found. No results found. LABS: Results for orders placed or performed during the hospital encounter of 09/27/24 (from the past 24 hours) Type & Screen Result Value Ref Range Group and Rh O Positive Antibody Screen Negative CBC Result Value Ref Range WBC 10.4 4.3 - 10.8 K/uL RBC 3.28 (L) 4.60 - 6.20 M/uL Hemoglobin 10.8 (L) 14.0 - 18.0 gm/dL Hematocrit 32.8 (L) 40.0 - 54.0 % MCV 100 80 - 100 fL MCH 33 27 - 33 pg MCHC 33 33 - 36 gm/dL RDW 14.2 11.5 - 14.5 % Platelet Count 149 (L) 150 - 400 K/UL MPV 10.2 6.5 - 12 fL Basic Metabolic Profile Result Value Ref Range Sodium 133 (L) 136 - 145 mmol/L Potassium 5.3 (H) 3.4 - 5.1 mmol/L Chloride 104 98 - 108 mmol/L Carbon Dioxide 19 (L) 20 - 31 mmol/L BUN (Urea Nitro) 38 (H) 9 - 23 mg/dL Creatinine 11.48 (HH) 0.73 - 1.18 mg/dL Est GFR (CKD-EPI) 4.81 (L) >60.00 mL/min/1.73m2 Glucose 103 74 - 106 mg/dL Calcium, Serum 9.2 8.7 - 10.4 mg/dL Anion Gap 10.0 0.0 - 15.0 mmol/L Protime/INR Result Value Ref Range INR 1.0 0.9 - 1.2 PTT Result Value Ref Range PTT 39.6 (H) 24.0 - 31.0 sec. Hemoglobin Result Value Ref Range Hemoglobin 10.0 (L) 14.0 - 18.0 gm/dL Basic Metabolic Profile Result Value Ref Range Sodium 134 (L) 136 - 145 mmol/L Potassium 5.8 (H) 3.4 - 5.1 mmol/L Chloride 102 98 - 108 mmol/L Carbon Dioxide 20 20 - 31 mmol/L BUN (Urea Nitro) 41 (H) 9 - 23 mg/dL Creatinine 12.16 (HH) 0.73 - 1.18 mg/dL Est GFR (CKD-EPI) 4.49 (L) >60.00 mL/min/1.73m2 Glucose 119 (H) 74 - 106 mg/dL Calcium, Serum 9.2 8.7 - 10.4 mg/dL Anion Gap 12.0 0.0 - 15.0 mmol/L POCT Glucose Meter Result Value Ref Range GLUCOSE WB METER 87 60 - 100 mg/dL documented in this encounter ED Notes * Adam Kimble MD - 09/27/2024 7:31 PM CDT Emergency Center Note History of Present Illness Chief Complaint Other HPI Vik Thakkar is a 54 y.o. male with a history of hypertension, hyperlipidemia, ESRD and diabetes type 2 who presents for evaluation of bleeding. The patient reports that he had a fistula placed in his right arm this morning at 8 AM. The sight was wrapped immediately following surgery but still bled for over an hour. He was then brought to the ER where it was unwrapped and packed further. His left groin line was also bleeding significantly. He does take a baby Aspirin daily. He also endorses having generalized pain. He denies chest pain or shortness of breath. Of note, the patient is on dialysis for kidney dysfunction and diabetes. He lost a significant amount of weight and is now off insulin. He is expected to dialyze tomorrow at noon. The patient does not report any other symptoms. Independent Historian None Review of External Notes I reviewed the transfer note from [facility] noting creating a new fistula to the right upper extremity. The site was bleeding significantly. Hemoglobin was 11.9. Platelet count was 161. Past Medical History Medical History and Problem List Cannabis dependence, uncomplicated Chronic pain of both shoulders Chronic thoracic back pain Claudication of both lower extremities Controlled substance agreement signed Degeneration of cervical intervertebral disc Depression, recurrent ESRD on hemodialysis CHIQUIS (generalized anxiety disorder) Gastroparesis GERD (gastroesophageal reflux disease) History of colon cancer, stage III Hyperkalemia Hypertension Lumbar foraminal stenosis Other and unspecified hyperlipidemia Perianal fistula Peripheral polyneuropathy Recurrent Clostridium difficile diarrhea Right shoulder pain Secondary hyperparathyroidism of renal origin Spinal stenosis of lumbar region without neurogenic claudication Type 2 diabetes mellitus with chronic kidney disease Vitamin B deficiency, unspecified Medications aluminum chloride (Drysol) 20 % external solution amLODIPine (NORVASC) 10 mg tablet aspirin (ECOTRIN) 81 mg enteric coated tablet atorvastatin (LIPITOR) 40 mg tablet Auryxia 210 mg iron tab diclofenac topical (VOLTAREN) 1 % gel dicyclomine (BENTYL) 20 mg tablet durable medical equipment (DME) famotidine (PEPCID) 20 mg tablet lidocaine 5 % topical patch methocarbamoL (ROBAXIN) 750 mg tablet metoclopramide 5 mg tablet metoprolol tartrate (LOPRESSOR) 25 mg tablet nortriptyline (PAMELOR) 10 mg capsule ondansetron (ZOFRAN ODT) 8 mg disintegrating tablet ondansetron (ZOFRAN) 4 mg tablet oxyCODONE 10 mg tablet polyethylene glycol (Miralax) 17 g per packet packet RenaPlex-D 800 mcg-12.5 mg -2,000 unit tab sennosides (Suyapa-ulysses) 8.6 mg tablet tiZANidine 2 mg tablet Surgical History Arthroscopic distal claviculectomy Arthroscopy of right shoulder, rotator cuff repair, subacromial decompression, biceps tenodesis, extensive debridement and distal claviculectomy Cholecystectomy Colectomy Cystoscopy Eye surgery I & D perianal abscess IR tunneled dialysis catheter placement, right Pilonidal cyst/sinus excision [place] teeth extraction Physical Exam Temperature: 97.6 ??F (36.4 ??C) Pulse: 64 Respirations: 14 BP: (!) 148/56 SpO2: 100 % General: Sitting partially reclined in bed HENT: No external evidence of trauma. Neck: Moving neck freely. Eyes: PERRL, Conjunctiva clear CV: RRR. No murmurs. 2+ radial pulse. Resp: Lungs clear throughout. No wheezes, rales, or rhonchi. Abdomen: Soft, nontender, nondistended. Extremities/MSK: No lower extremity edema or tenderness. No obvious deformities. Blood under groin dressing but no active hemorrhaging. Neuro: Alert and conversant Skin: Warm and dry. No visible skin rashes. Psych: Normal affect, appropriate Vitals Trending Patient Vitals for the past 24 hrs: BP Temp Pulse Resp SpO2 Height 09/27/24 1928 (!) 148/56 97.6 ??F (36.4 ??C) 64 14 100 % 5' 5 (1.651 m) Diagnostics Lab Results Labs Reviewed - No data to display Imaging None ED Course Medications Administered Medications - No data to display Procedures None Medical Decision Making / Diagnosis MDM ED Course as of 09/27/242042 Sarah Beth September 27, 2024 2018 Here from outside facility for bleeding post fistula creation and right groin site. Bleeding seems well-controlled here, given recent dressing placement I do not take on the right arm dressing however does not soak his arm is well- perfused. He is strong pulses and pulse ox on that finger readscompletely normally. Discussion of Management with other providers: Dr. Worthington from vascular surgery, thinks this is most likely from heparin but can be observed overnight if needed however patient was adamant about discharging this would be appropriate. Will plan for admission given significant bleeding his hemoglobin has dropped over a point from earlier today [place] when it was 11.9. I do not believe this is from ongoing bleeding I think this is likely just secondary from the bleeding earlier today. Discussion of Management with other providers: Dr. Emmanuel from the hospitalist service who agrees accept patient to his service Patient given home dose of oxycodone [ZF] ED Course User Index [ZF] Adam Kimble MD We did take down most of the dressing and there was no active bleeding at all from the dressing of the arm or the groin Disposition The patient was admitted to the hospital. New Prescriptions No medications on file ICD-10 Codes: ICD-10-CM 1. Bleeding due to dialysis catheter placement, initial encounter ([facility]) T82.838A [employer] * Zully Eckert RN - 09/27/2024 7:25 PM CDT Pt arrives via EMS from [place] ED as a known transfer - see prior transfer notes. Per EMS report: 50 mcg Fentanyl given en route by EMS. Pt has an old fistula access site still present in E. RUE fistula site and R groin sites were both bleeding - bleeding currently controlled. Both sites bandaged upon arrival to [place]. Pt endorsing chronic back pain along with pain in RUE fistula area. EMS interventions: Lines: 20G left hand VS: stable en route Allergies added to pt chart after reviewing transfer paperwork and confirming with pt. * Roxane Sanz RN - 09/27/2024 5:42 PM CDT Transfer to [facility] Information Transferring facility: [place] [place] [facility] taking transfer request: Janki Guerrier MD / specialist notified: none Special needs / direction: none Description of Illness / Injury: To the ED at [place] with post procedure bleeding after having a new fistula placed in his R arm today. Has two incision sites in the RUE, the upper one is oozing,and the lower one is bleeding slightly more. Soaking through 4x4's, pressure dressing placed. Also had a new temporary dialysis access placed in his R groin that is also bleeding, no pressure dressing placed at this time. Also had temporary access removed from R chest today, side is C/D/I,. Medications administered by transferring hospital: 15mg Oxy 4x/day for chronic back pain, given a dose prior to leaving. Other information: Last dialysis run yesterday, but unable to complete full run. Expected to leave [place] at approx 1900. * Hugo Shearer MD - 09/27/2024 5:01 PM CDT Transfer to [facility] Information Transferring facility: [place] emergency department [place] [facility] taking transfer request: Janki Guerrier MD / specialist notified: none Special needs / direction: none Description of Illness / Injury: Dialysis patient with bleeding complications. Reported to have no longer functioning left upper extremity fistula. It sounds like vascular is working on creating a new fistula to the right upper extremity. In the meantime dialysis catheter placed and growing. Patient presented to [place] emergency department with bleeding from both his right groin and the rightupper extremity site. They placed Gelfoam and wrapped the right upper extremity which was bleeding more significantly. I contacted the nurse of the vascular service who recommended transfer to [facility]. Hugo Shearer MD documented in this encounter Miscellaneous Notes * Med Reconciliation - Rosalind Palma - 09/27/2024 8:48 PM CDT PHARMACY MEDICATION RECONCILIATION NOTE MEDICATION RECONCILIATION on admission by pharmacy has been completed. Prior to admission medications were reviewed with outside pharmacy fill records, recent clinical summaries ([facility], [facility]), and with the patient at bedside. The PHLEBOTOMY PROGRAM COORDINATOR medication list has been updated and reflected in the chart below. Please use the PHLEBOTOMY PROGRAM COORDINATOR medication section for ordering home doses during admission. Medication related issues (discrepancies, interactions, additions, removals, changes, compliance/adherence): Added: all medications to PHLEBOTOMY PROGRAM COORDINATOR list Medications requiring detailed history: Not applicable PRIOR TO ADMISSION MEDICATION LIST: Prior to Admission Medications Prescriptions Last Dose Informant Patient Reported? Taking? amLODIPine (NORVASC) 10 mg oral tablet 09/27/2024 Patient Yes Yes Sig: Take 1 tablet (10 mg) by mouth once daily. aspirin 81 mg oral enteric coated tablet 09/27/2024 Patient Yes Yes Sig: Take 1 tablet (81 mg) by mouth once daily. atorvastatin (LIPITOR) 40 mg oral tablet 09/26/2024 Patient Yes Yes Sig: Take 1 tablet (40 mg) by mouth at bedtime. dicyclomine (BENTYL) 20 mg oral tablet PRN Patient Yes Yes Sig: Take 1 tablet (20 mg) by mouth twice a day as needed (IBS). ferric citrate 210 mg iron oral Tab 09/26/2024 Patient Yes Yes Sig: Take 3 tablets (630 mg) by mouth three times a day with meals. metoclopramide HCl (REGLAN) 5 mg oral tablet PRN Patient Yes Yes Sig: Take 0.5 tablets (2.5 mg) by mouth twice a day as needed. metoprolol tartrate (LOPRESSOR) 25 mg oral tablet 09/27/2024 Morning Patient Yes Yes Sig: Take 1 tablet (25 mg) by mouth twice a day. nortriptyline (PAMELOR) 10 mg oral capsule 09/26/2024 Patient Yes Yes Sig: Take 2 capsules (20 mg) by mouth at bedtime. ondansetron (ZOFRAN) 8 mg oral ODT PRN Patient Yes Yes Sig: Dissolve 1 tablet (8 mg) in mouth every 8 (eight) hours as needed (nausea/vomiting). oxyCODONE, immediate release, (ROXICODONE) 10 mg oral tablet 09/26/2024 Patient Yes Yes Sig: Take 1.5 tablets (15 mg) by mouth four times a day. polyethylene glycol (MIRALAX) 17 gram oral packet PRN Patient Yes Yes Sig: Take 17 g by mouth once a day as needed for constipation. Mix each dose in 4-8 ounces of liquid as directed. senna (SENOKOT) 8.6 mg oral tablet PRN Patient Yes Yes Sig: Take 1 tablet (8.6 mg) by mouth twice a day as needed (constipation). tiZANidine (ZANAFLEX) 2 mg oral tablet PRN Patient Yes Yes Sig: Take 1 tablet (2 mg) by mouth twice a day as needed (muscle spasms). Facility-Administered Medications: None This patient obtains medications from [address] Thank you for the opportunity to participate in the care of this patient. Jared Tucker, Account Resolution Expert Phone #:[phone] or [phone] Time spent reconciling meds: 30 min Location: face to face encounter Cosigned by Shani Puckett, Pharm D at 09/27/2024 8:53 PM CDT documented in this encounter Plan of Treatment Not on file documented as of this encounter Procedures Procedure Name Priority Date/Time Associated Diagnosis Comments ABORH CONFIRM (LAB USE ONLY) Routine 09/28/2024 9:28 AM CDT POTASSIUM STAT 09/28/2024 9:28 AM CDT HEP B SURFACE ANTIGEN Routine 09/28/2024 9:28 AM CDT EXTRA TUBE PST Routine 09/28/2024 9:24 AM CDT HEMODIALYSIS Routine 09/28/2024 8:58 AM CDT POCT GLU METER Routine 09/28/2024 7:41 AM CDT BASIC METAB PROFILE Routine 09/28/2024 4 :37 AM CDT HEP B SURFACE ANTIBODY Add On 4:37 AM CDT HEMOGLOBIN Routine 09/28/2024 4:37 AM CDT TYPE AND SCREEN STAT 09/27/2024 7:52 PM CDT BASIC METAB PROFILE STAT 09/27/2024 7 :52 PM CDT CBC (HGB,HCT,WBC,RBC,PLATEL ET) STAT 09/27/2024 7:52 PM CDT PROTIME/INR STAT 09/27/2024 7:52 PM CDT PARTIAL THROMBOPLASTIN TIME STAT 09/27/2024 7:52 PM CDT documented in this encounter Results * Hepatitis B Surface Antigen (09/28/2024 9:28 AM CDT) HEP BS ANTIGEN Non-Reacti ve Non-Reacti ve 09/28/2024 10:59 AM CDT [facility] Blood 09/28/2024 9:28 AM CDT 09/28/2024 9:31 AM CDT us Duglas Cunha MD IMMUNOLOGY ORDERABLE Final Resul t Performing Organization Address [facility] Co de Phone Number [facility] [address] [place] [address] * (ABNORMAL) Potassium, Serum (09/28/2024 9:28 AM CDT) Potassium 5.5(H) 3.4 - 5.1 mmol/L 09/28/2024 10:33 AM CDT [facility] Blood 09/28/2024 9:28 AM CDT 09/28/2024 9:31 AM CDT us Samson Billingsley DO CHEMISTRY ORDERABLE Final Resu lt Performing Organization Address [facility] Co de Phone Number [facility] [address] [place] [address] [place] [address] * ABORh Confirm (Lab Use Only) (09/28/2024 9:28 AM CDT) Group and Rh O Positive 09/28/2024 10:03 AM CDT [facility] Blood 09/28/2024 9:28 AM CDT 09/28/2024 9:31 AM CDT us Adam Kimble MD BLOOD BANK ORDERABLE Final Res ult Performing Organization Address [facility] Co de Phone Number [facility] [address] [place] [address] [place] [address] [facility] [address] [place] [address] * Extra Tube PST (Lab Use Only) (09/28/2024 9:24 AM CDT) Blood 09/28/2024 9:24 AM CDT 09/28/2024 9:33 AM CDT us Samson Billingsley DO CHEMISTRY ORDERABLE Final Resu lt Performing Organization Address [facility] de Phone Number [facility] [address] [place] [address] * POCT Glucose Meter (09/28/2024 7:41 AM CDT) [facility] GLUCOSE WB METER 87 60 - 100 mg/dL 09/28/2024 7:58 AM CDT [facility] Blood 09/28/2024 7:41 AM CDT 09/28/2024 7:58 AM CDT Samson Billingsley DO LAB POINT OF CARE TEST RESULTS Final Result Performing Organization Address [facility] Number [facility] [place] [address] * Hepatitis B Surface Antibody (09/28/2024 4:37 AM CDT) [facility] HEP BS ATBY QUALITATIVE Reactive 09/28/2024 9:35 AM CDT [facility] Comment:>10 mIU/mL. Immune. Blood 09/28/2024 4:37 AM CDT 09/28/2024 4:59 AM CDT Duglas Cunha MD IMMUNOLOGY ORDERABLE Final Resul t Performing Organization Address [facility] de Phone Number [facility] [place] [address] * (ABNORMAL) Basic Metabolic Profile (09/28/2024 4:37 AM CDT) Only the most recent of2 resultswithin the time period is included. [facility] Sodium 134(L) 136 - 145 mmol/L 09/28/2024 6:04 AM T [facility] Potassium 5.8(H) 3.4 - 5.1 mmol/L 09/28/2024 6:04 AM T [facility] Chloride 102 98 - 108 mmol/L 09/28/2024 6:04 AM [facility] Carbon Dioxide 20 20 - 31 mmol/L 09/28/2024 6:04 AM [facility] BUN (Urea Nitro) 41(H) 9 - 23 mg/dL 09/28/2024 6:04 AM [facility] Creatinine 12.16(HH) 0.73 - 1.18 mg/dL 09/28/2024 6:04 AM [facility] Comment:Critical Result(s) C alled at 05:59:28 09/28/2024 to and read back by Mike Roibson RN by cruz Thomas GFR (CKD-EPI) 4.49(L) >60.00 mL/min/1. 73m2 09/28/2024 6:04 AM [facility] Comment:Calculation based on the Chronic Kidney Disease Epidemiology Collaboration (CKD-EPI) equation refit without adjustment for race. Glucose 119(H) 74 - 106 mg/dL 09/28/2024 6:04 AM [facility] Calcium, Serum 9.2 8.7 - 10.4 mg/dL 09/28/2024 6:04 AM [facility] Anion Gap 12.0 0.0 - 15.0 mmol/L 09/28/2024 6:04 AM [facility] Blood 09/28/2024 4:37 AM CDT 09/28/2024 4:59 AM CDT Yazan Graham MD CHEMISTRY ORDERABLE Final Result Performing Organization Address City/State/[facility] de Phone Number [facility] [address] [place], [place] [id number] * (ABNORMAL) Hemoglobin (09/28/2024 4:37 AM CDT) Hemoglobin 10.0(L) 14.0 - 18.0 gm/dL 09/28/2024 5:06 AM [facility] Blood 09/28/2024 4:37 AM CDT 09/28/2024 4:59 AM CDT us Yazan Graham MD HEMATOLOGY ORDERABLE Final Resul t [facility] [address] [place] [address] * (ABNORMAL) PTT (09/27/2024 7:52 PM CDT) PTT 39.6(H) 24.0 - 31.0 sec. 09/27/2024 8:23 PM CDT [facility] Blood 09/27/2024 7:52 PM CDT 09/27/2024 7:59 PM CDT Narrative [facility] - 09/27/2024 8:23 PM CDT aPTT Therapeutic Reference Ranges: Heparin protocol: 38 - 75 seconds standard/low dose 43 - 86 seconds high dose Argatroban protocol: 60 - 85 seconds Bivalirudin protocol: 43 - 71 seconds Adam Kimble MD COAGULATION ORDERABLE Final Re sult Performing Organization Address City/[facility]/ZIP Co de Phone Number [facility] [address] [place] [address] * Protime/INR (09/27/2024 7:52 PM CDT) Pathologist [facility] INR 1.0 0.9 - 1.2 09/27/2024 8:23 PM CDT [facility] Blood 09/27/2024 7:52 PM CDT 09/27/2024 7:59 PM CDT Adam Kimble MD COAGULATION ORDERABLE Final Re sult Performing Organization Address City/[facility]/ZIP Co de Phone Number [facility] [address] [address] * (ABNORMAL) CBC (09/27/2024 7:52 PM CDT) Pathologist [facility] WBC 10.4 4.3 - 10.8 K/uL 09/27/2024 8:05 PM [facility] RBC 3.28(L) 4.60 - 6.20 M/uL 09/27/2024 8:05 PM [facility] Hemoglobin 10.8(L) 14.0 - 18.0 gm/dL 09/27/2024 8:05 PM [facility] Hematocrit 32.8(L) 40.0 - 54.0 % 09/27/2024 8:05 PM [facility] MCV 100 80 - 100 fL 09/27/2024 8:05 PM [facility] MCH 33 27 - 33 pg 09/27/2024 8:05 PM [facility] MCHC 33 33 - 36 gm/dL 09/27/2024 8:05 PM [facility] RDW 14.2 11.5 - 14.5 % 09/27/2024 8:05 PM [facility] Platelet Count 149(L) 150 - 400 K/UL 09/27/2024 8:05 PM [facility] MPV 10.2 6.5 - 12 fL 09/27/2024 8:05 PM [facility] Blood 09/27/2024 7:52 PM CDT 09/27/2024 7:59 PM CDT us Adam Kimble MD HEMATOLOGY ORDERABLE Final Res ult Performing Organization Address City/[facility]/ZIP Co de Phone Number [facility] [address] [place] [address] * Type & Screen (09/27/2024 7:52 PM CDT) Group and Rh O Positive 09/27/2024 8:54 PM CDT [facility] Antibody Screen Negative 09/27/2024 8:54 PM CDT [facility] Blood 09/27/2024 7:52 PM CDT 09/27/2024 7:59 PM CDT us Adam Kimble MD BLOOD BANK ORDERABLE Edited Re sult - Final [facility] [address] [place] [address] [facility] [address] [place] [address] documented in this encounter Visit Diagnoses Diagnosis Bleeding- Primary Hemorrhage, unspecified Bleeding due to dialysis catheter placement, initial encounter (HCC) Complication of dialysis access insertion, initial encounter ESRD (end stage renal disease) on dialysis (HCC) End stage renal disease documented in this encounter Admitting Diagnoses Diagnosis Bleeding Hemorrhage, unspecified documented in this encounter Administered Medications Inactive Administered Medications - up to 3 most recent administrations Medication Order MAR Action Action Date Dose Rate Site saline FLUSH syringe 10 mL 10 mL, Intravenous, EVERY 8 HOURS, First dose on Tue09/27/24 at 2200, Until Discontinued Given 09/28/2024 5:53 AM CDT 10 mL Given 09/27/2024 11:31 PM CDT 10 mL atorvastatin (LIPITOR) tablet 40 mg 40 mg, oral, AT BEDTIME, First dose on Tue09/27/24 at 2200, Until Discontinued Given 09/27/2024 11:31 PM CDT 40 mg dicyclomine (BentyL) tablet 20 mg 20 mg, oral, TWICE A DAY NEEDED, Starting on Tue09/27/24 at 2141, Until Tue09/28/24 at 2241, IBS Given 09/27/2024 11:38 PM CDT 20 mg furosemide (PF) (LASIX) injection 40 mg 40 mg, Intravenous, NOW, 1 dose, On Tue09/28/24 at 0815 Given 09/28/2024 10:19 AM CDT 40 mg heparin 1,000 units/mL injection 1,000-3,500 Units 1,000-3,500 Units (1-3.5 mL), Intravenous, NEEDED, Starting on Tue09/28/24 at 0858, Until Tue09/28/24 at 2241, for access catheter lumen maintenance HYDROmorphone (Dilaudid) syringe 0.5 mg 0.5 mg, Intravenous, EVERY 4 HOURS NEEDED, 2 doses, Starting on Tue09/27/24 at 2302, Until Tue09/28/24 at 0813, Pain, when NOT taking PO, Pain, if oral opioid not effective or tolerated Given 09/28/2024 1:45 AM CDT 0.5 mg lidocaine 1% (PF) (XYLOCAINE) injection 1-20 mL 1-20 mL, Intradermal, NEEDED, Starting on Tue09/28/24 at 0857, Until Tue09/28/24 at 2241, for local Anesthesia nortriptyline (Pamelor) capsule 20 mg 20 mg, oral, AT BEDTIME, First dose on Tue09/27/24 at 2245, Until Discontinued Given 09/27/2024 11:31 PM CDT 20 mg ondansetron (Zofran) injection 4 mg 4 mg, Intravenous, EVERY 8 HOURS NEEDED, Starting on Tue09/27/24 at 2125, Until Tue09/28/24 at 2241, Nausea/Vomiting, 1st choice Given 09/27/2024 9:37 PM CDT 4 mg oxyCODONE (immediate release) (ROXICODONE) tablet 15 mg 15 mg, oral, ONCE, 1 dose, On Tue09/27/24 at 2030 Given 09/27/2024 8:36 PM CDT 15 mg oxyCODONE (immediate release) (ROXICODONE) tablet 15 mg 15 mg, oral, FOUR TIMES A DAY, First dose on Tue09/28/24 at 0700, Until Discontinued Given 09/28/2024 4:27 PM CDT 15 m g Given 09/28/2024 10:54 AM CDT 15 mg Given 09/28/2024 6:36 AM CDT 15 mg prochlorperazine (COMPAZINE) injection 5-10 mg 5-10 mg, Intravenous, EVERY 6 HOURS NEEDED, 2 doses, Starting on Tue09/28/24 at 0125, Until Tue09/28/24 at 2241, nausea & vomiting Given 09/28/2024 1:40 AM CDT 10 mg tiZANidine (ZANAFLEX) tablet 2 mg 2 mg, oral, TWICE A DAY NEEDED, Starting on Tue09/27/24 at 2327, Until Tue09/28/24 at 2241, muscle spasms Given 09/27/2024 11:31 PM CDT 2 mg documented in this encounter Active and Recently Administered Medications Times are shown in CDT. Scheduled Medication Order 09/26/2024 09/27/202409/28/2024 saline FLUSH syringe 10 mL 10 mL, Intravenous, EVERY 8 HOURS, First dose on Tue09/27/24 at 2200, Until Discontinued 2330 (Given - Provider: Mike Robison RN) 0553 (Given - Provider: Mike Robison RN)1425 (Not Given - Provider: Melinda Rosas RN - Reason: Not in room - Comment: Pt in dialysis) amLODIPine (NORVASC) tablet 10 mg 10 mg, oral, DAILY, First dose on Tue09/28/24 at 0800, Until Discontinued 0848 (Not Given - Provider: Melinda Rosas RN - Reason: Clinically appropriate (comment) - Comment: anticipates to run today) atorvastatin (LIPITOR) tablet 40 mg 40 mg, oral, AT BEDTIME, First dose on Tue09/27/24 at 2200, Until Discontinued 2330 (Given - Provider: Mike Robison RN) furosemide (PF) (LASIX) injection 40 mg (COMPLETED) 40 mg, Intravenous, NOW, 1 dose, On Tue09/28/24 at 0815 1019 (Given - Provid er: Melinda Rosas RN) metoprolol tartrate (LOPRESSOR) tablet 25 mg 25 mg, oral, TWICE A DAY, First dose on Tue09/28/24 at 0800, Until Discontinued 0848 (Not Given - Provider: Melinda Rosas RN - Reason: Clinically appropriate (comment) - Comment: anticipates to run today) nortriptyline (Pamelor) capsule 20 mg 20 mg, oral, AT BEDTIME, First dose on Tue09/27/24 at 2245, Until Discontinued 2330 (Given - Provider: Mike Robison RN) oxyCODONE (immediate release) (ROXICODONE) tablet 15 mg (COMPLETED) 15 mg, oral, ONCE, 1 dose, On Tue09/27/24 at 2030 2035 (Given - Provider: Zully Eckert RN) oxyCODONE (immediate release) (ROXICODONE) tablet 15 mg 15 mg, oral, FOUR TIMES A DAY, First dose on Tue09/28/24 at 0700, Until Discontinued 0636 (Given - Provid er: Mike Robison RN)1054 (Given - Provider: Melinda Rosas RN)1627 (Given - Provider: Melinda Rosas RN) PRN Medication Order 09/26/2024 09/27/2024 09/28/2024 saline FLUSH syringe 10 mL 10 mL, Intravenous, NEEDED, Starting on Sarah Beth 09/27/24 at 2141, Until Tue09/28/24 at 2241, Line Care acetaminophen (TYLENOL) tablet 650 mg 650 mg, oral, EVERY 4 HOURS NEEDED, Starting on Sarah Beth 09/27/24 at 2141, Until Tue09/28/24 at 2241, fever, pain, for pain or fever benzocaine-menthol (CEPACOL) lozenge 1 lozenge 1 lozenge, oral, EVERY 2 HOURS NEEDED, Starting on Sarah Beth 09/27/24 at 2141, Until Tue09/28/24 at 2241, sore throat dicyclomine (BentyL) tablet 20 mg 20 mg, oral, TWICE A DAY NEEDED, Starting on Tue09/27/24 at 2141, Until Tue09/28/24 at 2241, IBS 2338 (Given - Provider: Mike Robison RN) heparin 1,000 units/mL injection 1,000-3,500 Units 1,000-3,500 Units (1-3.5 mL), Intravenous, NEEDED, Starting on Tue09/28/24 at 0858, Until Tue09/28/24 at 2241, for access catheter lumen maintenance HYDROmorphone (Dilaudid) syringe 0.5 mg (CANCELED) 0.5 mg, Intravenous, EVERY 4 HOURS NEEDED, 2 doses, Starting on Sarah Beth 09/27/24 at 2302, Until Tue09/28/24 at 0813, Pain, when NOT taking PO, Pain, if oral opioid not effective or tolerated 0145 (Given - Provid er: Mike Robison RN) lidocaine (LMX-4) topical cream 1 Application topical, NEEDED, Starting on Sarah Beth 09/27/24 at 2141, Until Tue09/28/24 at 2241, IV start or restart if patient prefers a needleless local anesthetic. lidocaine 1% (PF) (XYLOCAINE) injection 1-20 mL 1-20 mL, Intradermal, NEEDED, Starting on Tue09/28/24 at 0857, Until Tue09/28/24 at 2241, for local Anesthesia lidocaine 1% injection (conc: 10 mg/mL) 0.1-0.3 mL 0.1-0.3 mL, Intradermal, NEEDED, Starting on Tue09/27/24 at 214, Until Tue09/28/24 at 2241, Local Anesthesia, IV start or restart lubricant drops ophthalmic (EYE) solution 1-2 drop 1-2 drop, Each Eye, FOUR TIMES A DAY NEEDED, Starting on Tue09/27/24 at 214, Until Tue09/28/24 at 2241, dry eye(s) ondansetron (Zofran) injection 4 mg 4 mg, Intravenous, EVERY 8 HOURS NEEDED, Starting on Tue09/27/24 at 2125, Until Tue09/28/24 at 2240, Nausea/Vomiting, 1st choice 7 (Given - Provider: Zully Eckert RN) polyethylene glycol (MIRALAX) packet 17 g 17 g, oral, DAILY NEEDED, Starting on Tue09/27/24 at 2140, Until Tue09/28/24 at 2241, Constipation, 2nd choice prochlorperazine (COMPAZINE) injection 5-10 mg 5-10 mg, Intravenous, EVERY 6 HOURS NEEDED, 2 doses, Starting on Tue09/28/24 at 0125, Until Tue09/28/24 at 2240, nausea & vomiting 0140 (Given - Provid er: Mike Robison RN) saline with benzyl alcohol injection 0.1-0.3 mL 0.1-0.3 mL, Intradermal, NEEDED, Starting on Tue09/27/24 at 214, Until Tue09/28/24 at 2241, IV start or restart senna (SENOKOT) tablet 8.6 mg 8.6 mg (1 tablet), oral, TWICE A DAY NEEDED, Starting on Tue09/27/24 at 2140, Until Tue09/28/24 at 224, Constipation, 1st choice sodium chloride 0.65% (OCEAN) nasal solution 1-2 spray 1-2 spray, Each Nostril, EVERY 2 HOURS NEEDED, Starting on Tue09/27/24 at 214, Until Tue09/28/24 at 2241, Nasal Dryness tiZANidine (ZANAFLEX) tablet 2 mg 2 mg, oral, TWICE A DAY NEEDED, Starting on Sarah Beth 09/27/24 at 2327, Until Tue09/28/24 at 2241, muscle spasms 2331 (Given - Provider: Mike Robison RN) documented in this encounter Care Teams Custom Frame Assembler Relationship Specialty Start Date End Date Rosamaria Garcia PA-C [address] [place], [place] [id number] PCP - General 09/27/24 documented as of this encounter
--- OUTSIDE RECORDS SUMMARY | 2024-11-01 03:19 | XMS_ITS | Continuity of Care Document ---
Author Organization [facility] Address [address] [address] [place] [address] Phone Care Team Providers Care Manager Drilling Name Role Phone Hilda Gilbert Unavailable Unavailable Allergies, Adverse Reactions, Alerts Substance Reaction Status Criticality HYDROMORPHONE HCL Active No Informa tion lisinopril Active No Information Penicillins Active No Information Medications Medication Instructions Dosage Effective Dates (start - stop) Status Comments Golytely 236 gram-22.74 gram-6.74 gram-5.86 gram oral solution Take by oral route as directed in colon prep instructions received from [facility] - Active Please keep o n file for upcoming procedure *11/13/24. Okay to dispense generic alternative such as Trilyte, Gavilyte, Peg 3350 or Colyte Miralax 17 gram/dose oral powder take by oral route as directed per COL prep instructions received from [facility] - Active Procedure isaiah e: *11/13/24, please dispense 1-8.3ml bottle Golytely 236 gram-22.74 [...] Active Procedures Procedure Date Offic/outpt E&m Estab Moderate 25 Offic/outpt E&m Estab Mod-hi 2 24 Colonoscopy [...] Diagnoses Date Provider Providers Copied on Encounter [facility] [place], [address] [address], [place], [id number], [place] tel:[phone] [facility] No Information 5 Dubon PAC Hilda. [address] [facility], [place], [place], [id number], [place]. tel:[phone] Referring Provider: Referral Self, USE FOR SELF REFERRALS. [facility] [place], [address] [address], [place], [id number], [place] tel:[phone] [facility] No Information 5 Arcadio Verduzco. [address] [facility], [place], [place], [id number], [place]. tel:[phone] Offic/outpt E&m Estab Moderate [facility] [place], [address] [address], [place], [id number], [place] tel:[phone] [facility] GI Symptoms or Concerns (chief complaint) Nausea and vomiting, unspecified vomiting typeChronic constipationH istory of colon cancerAdenoma tous polyp of colon, unspecified part of colon 5 Dubon PAC Hilda. [address] [facility], [place], [place], [id number], [place]. tel:[phone] Referring Provider: Rosamaria EDWARD, [address] [place] [address], [address]. tel:[phone] [facility] [place], [address] [address], [place], [id number], [place] tel:[phone] [facility] No Information 5 Arcadio Verduzco. [address] [facility], [address], [id number], [place]. tel:[phone] [facility] [place], [address] [address], [place], [id number], [place] tel:[phone] [facility] Chronic kidney disease, unspecified CKD stage 4 Ernesto Mosquera. [address] [facility], [address], [id number], [place]. tel:[phone] Offic/outpt E&m Estab Mod-hi 2 [facility] [place], [address] [address], [place], [id number], [place] tel:[phone] [facility] GI Symptoms or Concerns (chief complaint) Recurrent Clostridium difficile diarrheaColon polypHistory of colon cancer 4 Brittani Foss. [address], [id number], [place]. tel:[phone] Referring Provider: Referral Self, USE FOR SELF REFERRALS. [facility] [place], [address] [address], [place], [id number], [place] tel:[phone] [facility] Generalized abdominal pain 3 Leonides Montalvo. [address], [id number], [place]. tel:[phone] [facility] [place], [address] [address], [place], [id number], [place] tel:[phone] [facility] No Information 3 No Information Offic/outpt E&m Estab Mod-hi 2 [facility] [place], [address] [address], [place], [id number], [place] tel:[phone] [facility] GI Symptoms or Concerns (chief complaint) Recurrent Clostridium difficile diarrhea 3 Leonides Montalvo. [address] [place] [address], [id number], [place]. tel:[phone] Referring Provider: Referral Self, USE FOR SELF REFERRALS. [facility] [place], [address] [address], [place], [id number], [place] tel:[phone] [facility] Recurrent Clostridium difficile diarrhea 3 No Information [facility] [place], [address] [address], [place], [id number], [place] tel:[phone] [facility] No Information 2 Shaun Castellanos. [address] [facility], [address], [place], [place], [id number], [place]. tel:[phone] Offic/outpt E&m Estab Mod-hi 2 [facility] [place], [address] [address], [place], [id number], [place] tel:[phone] [facility] GI Symptoms or Concerns (chief complaint) Recurrent Clostridium difficile diarrheaPerso nal history of colon cancerEssenti al (primary) hypertension 2 No Information Referring Provider: Jasmin Lopez, [address] [facility] [address], [place], [address] . tel:[phone] [facility] [place], [address] [address], [place], [id number], [place] tel:[phone] [facility] No Information 2 Arcadio Verduzco. [address] [facility] [address], [place], [place], [id number], [place]. tel:[phone] [facility] [place], [address] [address], [place], [id number], [place] tel:[phone] [facility] Recurrent Clostridium difficile diarrhea 2 Luca Villalta. [address] [facility], [address], [place], [place], [address], [place]. tel:[phone] Subsqt Hosp-da E&m Minr Compl [facility] [place], [address] [address], [place], [id number], [place] tel:[phone] [facility] No Information 2 Shaun Jonesher. [address] [facility], [address], [place], [address], [place]. tel:[phone] Referring Provider: Herve Ramirez, [address] , [place], [address] . tel:[phone] Init Hosp-da E&m Mod Severity [facility], [address] [address], [place], [address], [place] tel:[phone] [facility] No Information 2 Luca Villalta. [address] [facility], [facility] [address], [place], [id number], [place]. tel:[phone] Referring Provider: Gavin OBRIEN, [address] [place] [address], [address]. tel:[phone] [facility], [address] [address], [place], [id number], [place] tel:[phone] [facility] No Information 2 Genna Parks. [address] [facility], [facility] [address], [place], [id number], [place]. tel:[phone] Telephone E&M II 11-20 Min ANSELMO [facility], [address] [address], [place], [address], [place] tel:[phone] [facility] GI Symptoms or Concerns (chief complaint) Right upper quadrant abdominal painPersonal history of colon cancer 1 Kofi Jeter. [address] [facility], [address], [place], [place], [id number], [place]. tel:[phone] Referring Provider: Milind Matias MD, [address] [facility] [address], [place], [address] . tel:[phone] [facility], [address] [address], [place], [id number], [place] tel:[phone] [facility] No Information 1 Edwar Rosas. [address] [facility], [address], [place], [place], [address], [place]. tel:[phone] [facility], [address] [address], [place], [id number], [place] tel:[phone] [facility] No Information 0 Lorena Baez. [address] [facility], [address], [place], [place], [id number], [place]. tel:[phone] Subsqt Hosp-da E&m Minr Compl [facility], [address] [address], [place], [id number], [place] tel:[phone] [facility] No Information 0 Kate Nugent. [address] [facility], [address], [place], [place], [id number], [place]. tel:[phone] Referring Provider: Jovanna Crowley, [address] [facility] [address], [place], [address] . tel:[phone] [facility], [address] [address], [place], [address], [place] tel:[phone] [facility] Generalized abdominal pain Apr- 0 Lorena Baez. [address] [facility], [address], [place], [place], [address], [place]. tel:[phone] Init Hosp-da E&m Mod Severity [facility], [address] [address], [place], [id number], [place] tel:[phone] [place] [address] No Information 0 Lorena Baez. [address] [facility], [address], [place], [place], [address], [place]. tel:[phone] Referring Provider: Nestor Carrillo MD, [address] [facility] [address], [place], [address] . tel:[phone] [facility], [address] [address], [place], [address], [place] tel:[phone] [facility] No Information 0 Genna Parks. [address] [facility], [facility] [address], [place], [id number], [place]. tel:[phone] [facility], [address] [address], [place], [address], [place] tel:[phone] [facility] No Information 8 No Information Referring Provider: Courtney Cervantes, [address] [place] [address], [address]. tel:[phone] Init Inpt Cons New/est Mod-hi [facility], [address] [address], [place], [address], [place] tel:[phone] [facility] No Information Edwar Rosas. [address] [facility], [facility] [address], [place], [place], [address], [place]. tel:[phone] Referring Provider: Courtney Cervantes, [address] [place], [address]. tel:[phone] Subsqt Hosp-da E&m Minr Compl [facility], [address] [address], [place], [address], [place] tel:[phone] [facility] No Information 7 No Information Referring Provider: Courtney Cervantes, [address] [place], [address]. tel:[phone] Init Hosp-da E&m Mod Severity [facility], [address] [address], [place], [address], [place] tel:[phone] [facility] No Information 7 No Information Referring Provider: Courtney Cervantes, [address] [place], [address]. tel:[phone] [facility], [address] [address], [place], [address], [place] tel:[phone] [facility] No Information Arcadio Verduzco. [address] [facility], [address], [id number], [place]. tel:[phone] Referring Provider: Courtney Cervantes, [address] [place] [address], [address]. tel:[phone] [facility], [address] [address], [place], [address], [place] tel:[phone] [facility] Adenomatous colon polyp Arcadio Verduzco. [address] [facility], [address], [id number], [place]. tel:[phone] Init Hosp-da E&m Mod Severity [facility] [place], [address] [address], [place], [address], [place] tel:[phone] [facility] No Information No Information Referring Provider: Courtney Cervantes, [address] [place], [address]. tel:[phone] Offic/outpt E&m Estab Low-mod [facility], [address] [address], [place], [id number], [place] tel:[phone] [facility] GI Symptoms or Concerns (chief complaint) Adenomatous colon polypAbnormal CT scan, colonFamily history of colon cancer 6 No Information Referring Provider: Courtney Cervantes, [address] [place], [address]. tel:[phone] [facility], [address] [address], [place], [address], [place] tel:[phone] [facility] Colon polyp Esperanza Monsalve. [address] [facility], [place] [address], [place], [place], [address], [place]. tel:[phone] Offic/outpt E&m Estab Mod-hi 2 [facility], [address] [address], [place], [address], [place] tel:[phone] [facility] GI Symptoms or Concerns (chief complaint) Colon polypDietary counseling and surveillanceE levated blood-pressur e reading, w/o diagnosis of htn 6 Ernesto KENYON [facility]. [address] [facility], [address], [place], [place], [address], [place]. tel:[phone] Referring Provider: Referral Self, USE FOR SELF REFERRALS. Offic/outpt E&m Estab Minor [facility], [address] [address], [place], [id number], [place] tel:[phone] [facility] GI Symptoms or Concerns (chief complaint) Colon polypFamily history of cancer of gastrointesti nal tractDietary Surveil/couns el 4 No Information Referring Provider: Courtney Cervantes, [address] [place] [address], [address]. tel:[phone] Subsqt Hosp-da E&m Minr Compl [facility], [address] [address], [place], [address], [place] tel:[phone] [facility] No Information 4 No Information Referring Provider: Kayla Crowley, [address] [place] [address] [place] [address], [place], [address]. tel:[phone] [facility] [place], [address] [address], [place], [address], [place] tel:[phone] [facility] No Information 4 No Information Referring Provider: Kayla Crowley, [address] [place] [address] [place] [address], [place], [address]. tel:[phone] Init Hosp-da E&m Mod Severity [facility] [place], [address] [address], [place], [address], [place] tel:[phone] [facility] No Information 4 No Information Referring Provider: Kayla Crowley, [address] [place] [address] [place] [address], [place], [address]. tel:[phone] Family History Family Member Type Diagnosis Age [...] betes mellitus Immunizations Vaccine Date Status Comments Influenza, recombinant, trivalent, injectable, preservative free administered Note: [facility] bi-direct ional interface ; Source: Other Registry Engerix-B administered [...] Insurance type Covered libertarian ID Authoriza tion(s) [facility] AARP Medic are Complete CI [id number] [employer] CI [id number] Social History Type Description Quantity Date Captured [...] Referral Ordered: Potassium Appointment date/timeframe: 05/22/2015 ordered Appointment Vik Thakkar BOOKED Appointment Vik Thakkar BOOKED History Of Present Illness Encounter Date Complaint History Of Prese nt Illness GI Symptoms or Concerns Vik escobar s a 54-year-old male presenting for evaluation of nausea and vomiting.He was last seen by Dr. Tran on 05/05. 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 He was scheduled for follow-up screening colonoscopy in December 2023 which does not look to have been completed.90-minute gastric emptying study in April 2024 showed evidence of delayed gastric emptying with 81% of retention at 30 minutes and 58% of retention at 90 minutes.Per externally reviewed PCP note on 09/04, patient was in the ED on 08/23 due to persistent vomiting unresponsive to usual treatment regimen. IV fluids and morphine provided significant relief. Lipase was mildly elevated but not concerning.Today, patient reports that he was referred here to discuss his gastroparesis symptoms. His symptoms typically involve nausea and vomiting on days that he has bowel movements. The nausea and vomiting is followed by significant abdominal cramping. He typically does not have nausea on other days, just some early satiety. No heartburn, reflux, or weight loss. Bowel movements occur every 2 to 3 days, and they can be as frequent as 5-6 times that day. Sometimes they are formed, however sometimes they are looser or very hard. There is abdominal cramping prior to bowel movements. He does not take the regular bowel regimen. He will take 2 capfuls MiraLAX on occasion if he needs to. He has previously taken senna but reports he discontinued because it was felt they would not be effective with his restricted fluid intake.Patient did not remember medications that he took. Upon external [facility] chart review, patient reports he takes the nortriptyline 20 mg in the evening which his primary prescribed for his gastroparesis symptoms. He also takes dicyclomine for abdominal cramping, and uses Zofran about 3 times a week for nausea. He also has a prescription for Reglan which he takes if the Zofran does not help. Of note, patient does use oxycodone daily for back pain, and if it does not help he will smoke marijuana 2-3 times that day. He finds himself needing to use marijuana 2-3 times a week. No NSAID use given kidney disease. No tobacco or alcohol use.Family history is notable for sister and mother with colon cancer, father with lung cancer, and aunt with pancreatic cancer. GI Symptoms or Concerns This is a [...] last positive testing was in July in [place] he tells me. I actually do not [...] had a sigmoid colon cancer resected in 2016, subsequent colonoscopies have been rescheduled. There is a history of recurrent C diff. He apparently had a positive C diff test in [place] in September of 2021, not clear which [...] pat ient is a 46-year-old male from [place], [place], seen in clinic again today to [...] mynor ent is a 45-year-old male from [facility] seen today in followup regarding a colon [...] mynor ent is a 44-year-old male from [facility] seen today in followup regarding a colon [...] Information Instructions Date Instruction Additional Infor dione Good to see you!-- I have ordered an upper endoscopy and a colonoscopy and you will be contacted schedule these.--I have also ordered a 4-hour gastric emptying study. You will likely have to stop your oxycodone for this study, as opioids cause delayed emptying as well.-- Take MiraLAX 1-2 capfuls daily, as Zofran and chronic Oxy use will cause constipation.--As we discussed, both oxycodone and Zofran can worsen nausea and vomiting as they will worsen constipation. Marijuana can also cause nausea and vomiting by itself. If possible, try to reduce your consumption of these.-- Nortriptyline (the medication you take at night) can cause some delayed emptying, however you are on a low dose so it may not cause too much of this effect.--You may continue to use the dicyclomine (Bentyl) as needed for abdominal cramping.--Nausea begins to occur more daily, you can use famotidine (Pepcid) at night.-- Follow-up with me in 8 weeks. Related to Nausea and vomiting, unspecified vomiting type -- I am glad to hear that [...] cancer we will send you to a recreation professor to discuss taking some blood for gene [...] daily for 14 days. 2. Referral to [facility] for IMT capsules. 3. Follow-up colonoscopy as already ordered. 4. Return to clinic in 4 months. 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 Will need to be done at [facility] with admit day before because of past [...]
--- OUTSIDE RECORDS SUMMARY | 2024-11-01 03:19 | XMS_ITS | Continuity of Care Document ---
Author Organization [facility] Address [address] [address] [place] [address] Phone Care Team Providers Care Geospatial Information Scientist Name Role Phone Hilda Gilbert Unavailable Unavailable Allergies, Adverse Reactions, Alerts Substance Reaction Status Criticality HYDROMORPHONE HCL Active No Informa tion lisinopril Active No Information Penicillins Active No Information Medications Medication Instructions Dosage Effective Dates (start - stop) Status Comments Golytely 236 gram-22.74 gram-6.74 gram-5.86 gram oral solution Take by oral route as directed in colon prep instructions received from [facility] - Active Please keep o n file for upcoming procedure *11/13/24. Okay to dispense generic alternative such as Trilyte, Gavilyte, Peg 3350 or Colyte Miralax 17 gram/dose oral powder take by oral route as directed per COL prep instructions received from [facility] - Active Procedure isaiah e: *11/13/24, [...] Diagnoses Date Provider Providers Copied on Encounter [facility] [place], [address] [address], [place], [id number], [place] tel:[phone] [facility] No Information 5 Dubon PAC Hilda. [address] [facility], [facility] [address], [place], [place], [address], [place]. tel:[phone] Referring Provider: Referral Self, USE FOR SELF REFERRALS. [facility] [place], [address] [address], [place], [id number], [place] tel:[phone] [facility] No Information 5 Arcadio Verduzco. [address] [facility], [facility] [address], [place], [place], [address], [place]. tel:[phone] Offic/outpt E&m Estab Moderate [facility] [place], [address] [address], [place], [address], [place] tel:[phone] [facility] GI Symptoms or Concerns (chief complaint) Nausea and vomiting, unspecified vomiting typeChronic constipationH istory of colon cancerAdenoma tous polyp of colon, unspecified part of colon 5 Dubon PAC Hilda. [address] [facility], [facility] [address], [place], [place], [address], [place]. tel:[phone] Referring Provider: Rosamaria EDWARD, [address] [place] [address], [address]. tel:[phone] [facility] [place], [address] [address], [place], [id number], [place] tel:[phone] [facility] No Information 5 Arcadio Verduzco. [address] [facility], [address], [id number], [place]. tel:[phone] [facility] [place], [address] [address], [place], [address], [place] tel:[phone] [facility] Chronic kidney disease, unspecified CKD stage 4 Ernesto Mosquera. [address] [facility], [address], [id number], [place]. tel:[phone] Offic/outpt E&m Estab Mod-hi 2 [facility] [place], [address] [address], [place], [address], [place] tel:[phone] [facility] GI Symptoms or Concerns (chief complaint) Recurrent Clostridium difficile diarrheaColon polypHistory of colon cancer 4 Brittani Foss. [address], [id number], [place]. tel:[phone] Referring Provider: Referral Self, USE FOR SELF REFERRALS. [facility] [place], [address] [address], [place], [address], [place] tel:[phone] [facility] Generalized abdominal pain 3 Leonides Montalvo. [address], [id number], [place]. tel:[phone] [facility] [place], [address] [address], [place], [id number], [place] tel:[phone] [facility] No Information 3 No Information Offic/outpt E&m Estab Mod-hi 2 [facility] [place], [address] [address], [place], [id number], [place] tel:[phone] [facility] GI Symptoms or Concerns (chief complaint) Recurrent Clostridium difficile diarrhea 3 Leonides Montalvo. [address] [place] [address], [id number], [place]. tel:[phone] Referring Provider: Referral Self, USE FOR SELF REFERRALS. [facility] [place], [address] [address], [place], [id number], [place] tel:[phone] [facility] Recurrent Clostridium difficile diarrhea 3 No Information [facility] [place], [address] [address], [place], [address], [place] tel:[phone] [facility] No Information 2 Shaun Castellanos. [address] [facility], [place], [place], [address], [place]. tel:[phone] Offic/outpt E&m Estab Mod-hi 2 [facility] [place], [address] [address], [place], [id number], [place] tel:[phone] [facility] GI Symptoms or Concerns (chief complaint) Recurrent Clostridium difficile diarrheaPerso nal history of colon cancerEssenti al (primary) hypertension 2 No Information Referring Provider: Jasmin Lopez, [address] [facility] [address], [place], [address] . tel:[phone] [facility] [place], [address] [address], [place], [id number], [place] tel:[phone] [facility] No Information 2 Arcadio Verduzco. [address] [facility], [facility] [address], [place], [place], [address], [place]. tel:[phone] [facility] [place], [address] [address], [place], [id number], [place] tel:[phone] [facility] Recurrent Clostridium difficile diarrhea 2 Luca Villalta. [address] [facility], [address], [place], [place], [address], [place]. tel:[phone] Subsqt Hosp-da E&m Minr Compl [facility] [place], [address] [address], [place], [id number], [place] tel:[phone] [facility] No Information 2 Shaun Jonesher. [address] [facility], [address], [place], [address], [place]. tel:[phone] Referring Provider: Herve Ramirez, [address] , [place], [address] . tel:[phone] Init Hosp-da E&m Mod Severity [facility], [address] [address], [place], [address], [place] tel:[phone] [facility] No Information 2 Luca Villalta. [address] [facility], [facility] [address], [place], [id number], [place]. tel:[phone] Referring Provider: Gavin OBRIEN, [address] [place] [address], [address]. tel:[phone] [facility], [address] [address], [place], [address], [place] tel:[phone] [facility] No Information 2 Genna Parks. [address] [facility], [facility] [address], [place], [address], [place]. tel:[phone] Telephone E&M II 11-20 Min ANSELMO [facility], [address] [address], [place], [address], [place] tel:[phone] [facility] GI Symptoms or Concerns (chief complaint) Right upper quadrant abdominal painPersonal history of colon cancer 1 Kofi Jeter. [address] [facility], [address], [place], [place], [address], [place]. tel:[phone] Referring Provider: Milind Matias MD, [address] [facility] [address], [place], [address] . tel:[phone] [facility], [address] [address], [place], [address], [place] tel:[phone] [facility] No Information 1 Edwar Rosas. [address] [facility], [address], [place], [place], [address], [place]. tel:[phone] [facility], [address] [address], [place], [address], [place] tel:[phone] [facility] No Information 0 Lorena Baez. [address] [facility], [address], [place], [place], [address], [place]. tel:[phone] Subsqt Hosp-da E&m Minr Compl [facility], [address] [address], [place], [address], [place] tel:[phone] [facility] No Information 0 Kate Nugent. [address] [facility], [address], [place], [place], [address], [place]. tel:[phone] Referring Provider: Jovanna Crowley, [address] [facility] [address], [place], [address] . tel:[phone] [facility], [address] [address], [place], [address], [place] tel:[phone] [facility] Generalized abdominal pain Apr- 0 Lorena Baez. [address] [facility], [address], [place], [place], [address], [place]. tel:[phone] Init Hosp-da E&m Mod Severity [facility], [address] [address], [place], [address], [place] tel:[phone] [place] [address] No Information 0 Lorena Baez. [address] [facility], [address], [place], [place], [address], [place]. tel:[phone] Referring Provider: Nestor Carrillo MD, [address] [facility] [address], [place], [address] . tel:[phone] [facility], [address] [address], [place], [address], [place] tel:[phone] [facility] No Information 0 Genna Parks. [address] [facility], [facility] [address], [place], [address], [place]. tel:[phone] [facility], [address] [address], [place], [address], [place] tel:[phone] [facility] No Information 8 No Information Referring Provider: Courtney Cervantes, [address] [place] [address], [address]. tel:[phone] Init Inpt Cons New/est Mod-hi [facility], [address] [address], [place], [place], [address], [place] tel:[phone] [facility] No Information Edwar Rosas. [address] [facility], [facility] [address], [place], [place], [address], [place]. tel:[phone] Referring Provider: Courtney Cervantes, [address] [place], [address]. tel:[phone] Subsqt Hosp-da E&m Minr Compl [facility], [address] [address], [place], [address], [place] tel:[phone] [facility] No Information 7 No Information Referring Provider: Courtney Cervantes, [address] [place], [address]. tel:[phone] Init Hosp-da E&m Mod Severity [facility], [address] [address], [place], [address], [place] tel:[phone] [facility] No Information 7 No Information Referring Provider: Courtney Cervantes, [address] [place], [address]. tel:[phone] [facility], [address] [address], [place], [address], [place] tel:[phone] [facility] No Information Arcadio Verduzco. [address] [facility], [address], [id number], [place]. tel:[phone] Referring Provider: Courtney Cervantes, [address] [place] [address], [address]. tel:[phone] [facility], [address] [address], [place], [address], [place] tel:[phone] [facility] Adenomatous colon polyp Arcadio Verduzco. [address] [facility], [address], [id number], [place]. tel:[phone] Init Hosp-da E&m Mod Severity [facility] [place], [address] [address], [place], [address], [place] tel:[phone] [facility] No Information No Information Referring Provider: Courtney Cervantes, [address] [place], [address]. tel:[phone] Offic/outpt E&m Estab Low-mod [facility], [address] [address], [place], [address], [place] tel:[phone] [facility] GI Symptoms or Concerns (chief complaint) Adenomatous colon polypAbnormal CT scan, colonFamily history of colon cancer 6 No Information Referring Provider: Courtney Cervantes, [address] [place], [address]. tel:[phone] [facility], [address] [address], [place], [address], [place] tel:[phone] [facility] Colon polyp Esperanza Monsalve. [address] [facility], [address] [address], [place], [place], [address], [place]. tel:[phone] Offic/outpt E&m Estab Mod-hi 2 [facility], [address] [address], [place], [address], [place] tel:[phone] [facility] GI Symptoms or Concerns (chief complaint) Colon polypDietary counseling and surveillanceE levated blood-pressur e reading, w/o diagnosis of htn 6 Ernesto KENYON [facility]. [address] [facility], [address], [place], [place], [address], [place]. tel:[phone] Referring Provider: Referral Self, USE FOR SELF REFERRALS. Offic/outpt E&m Estab Minor [facility], [address] [address], [place], [address], [place] tel:[phone] [facility] GI Symptoms or Concerns (chief complaint) Colon polypFamily history of cancer of gastrointesti nal tractDietary Surveil/couns el 4 No Information Referring Provider: Courtney Cervantes, [address] [place] [address], [address]. tel:[phone] Subsqt Hosp-da E&m Minr Compl [facility], [address] [address], [place], [address], [place] tel:[phone] [facility] No Information 4 No Information Referring Provider: Kayla Crowley, [address] [place] [address] [place] [address], [place], [address]. tel:[phone] [facility] [place], [address] [address], [place], [address], [place] tel:[phone] [facility] No Information 4 No Information Referring Provider: Kayla Crowley, [address] [place] [address] [place] [address], [place], [address]. tel:[phone] Init Hosp-da E&m Mod Severity [facility] [place], [address] [address], [place], [address], [place] tel:[phone] [facility] No Information 4 No Information Referring Provider: Kayla Crowley, [address] [place] [address] [place] [address], [place], [address]. tel:[phone] Family History Family Member Type Diagnosis Age [...] Insurance type Covered libertarian ID Authoriza tion(s) [facility] AARP Medic are Complete CI [id number] [employer] CI [id number] Social History Type Description Quantity Date Captured [...] last positive testing was in July in [place] he tells me. I actually do not [...] had a positive C diff test in [place] in September of 2021, not clear which [...] pat ient is a 46-year-old male from [place], [place], seen in clinic again today to [...] cancer we will send you to a emission technician to discuss taking some blood for gene [...] daily for 14 days. 2. Referral to [facility] for IMT capsules. 3. Follow-up colonoscopy [...]
--- OUTSIDE RECORDS SUMMARY | 2024-11-09 17:54 | XMS_ITS | Data Portability ---
Author Organization [place] - [facility] Address [address] [facility] [address] [place] [address] Care Team Providers Care Director Of Public Health Name Role Phone BRITTA RAMOS Primary Care Provider Assessment No assessment recorded. Plan of Treatment Reminders Order Date Submit Date Provider Last Modified By Organization Details Last Modified Time Details Appointments None recorded. Lab urinalysis , dipstick 2023 024 [email or web address] 9 [facility] [address], [address] [facility], [address], [place], [address], 11:43:13 Referral None recorded. Procedures None recorded. Surgeries None recorded. Imaging None recorded. Medication Orders None recorded. Patient TargetsNo targets recorded. Patient Instructions Encounter Date Encounter Id Patient Instructions Last Modified By Organization Details Last Modified Time 09/29/2023 [id number] will set up for cysto possible bladder biopsy/fulguratio n. [email or web address] Not available 09/29/2023 11:42:13 Reason for Referral None Reported. Results Created Date Observation Date Name Description Value Unit Range Abnormal Flag Note LastModifiedBy Organization Detail LastModifiedTime 09/29/1909/29/2023 urina lysis , dipst ick pH-Status 8.5 Not Available [facility] [address] [facility] [address], [place], [address], 09/28/2023 18:15:50 09/29/19 24 09/29/2023 urina lysis , dipst ick Blood-Status Small Not Available [facility] [address] [facility] [address], [place], [address], 09/28/2023 18:15:50 Result Notes None recorded. Procedures Surgical History Date Name Laterality Status Provider Name and Address Organization Details Recorded Time Eye surgery follow-up add-on completed Juan Francisco Don MD [address] [place] [address],[address], [place], [address], [facility] 09/29/2023 11:31:24 Imaging Results None recorded. Procedure Notes None recorded. Medical Equipment None Reported. Allergies Allergen ID Allergen Name Allergen Category Reaction Reaction Severity Criticality Documentation Date Start Date Code Code System Note Provider Name and Address Organization Details Recorded Time 711764 Product containin g penicilli n (product) medicatio n Not available Not available Not available 09/29/2023 46335 8001 SNOMED Juan Francisco Don MD [address] [place] [phone], [facility] 4 11:26:41 126474 lisinopri l medicatio n Not available Not available Not available 09/29/2023 06578 RxNorm Juan Francisco Don MD [address] [place] [phone], [facility] 4 11:26:45 867583 Dilaudid medicatio n Not available Not available Not available 09/29/2023 67375 3 RxNorm Juan Francisco Don MD [address] [place] [phone], [facility] 4 11:26:56 Medications Name Sig Start Date [...] Updated DateTime 09/29/2023 165.1 cm 23.8 kg/m2 60534.71 g Juan Francisco Don MD [address] [place] [address], [phone] 09/29/2023 11:26:30 Social History Question Answer Notes LastModified by Organizat ion Details LastModified Time Tobacco Smoking Status Former Smoker Juan Francisco Don MD [address] [place] [address], [phone] 09/29/2023 11:30:13 What Is Your Level Of Caffeine Consumption? Occasional [email or web address] Information not available 09/29/2023 When Did You Quit Smoking? 1-5yearssinjuve moreno [email or web address] Information not available 09/29/2023 What Was The Date Of Your Most Recent Tobacco Screening? 09/29/2023 [email or web address] Information not available 09/29/2023 Sex: Unknown Functional Status Question Answer Note LastModified by Organization D etails LastModified Time What is your level of alcohol consumption? None [email or web address] Information not available 09/29/2023 Mental Status None recorded. Family History Relationship Description Onset Age of this Age Resolved Age Notes LastModified by Organization Details LastModified Time Mother Family history of malignant neoplasm [email or web address] Not available 09/28 11:29:42 Mother Family history of diabetes mellitus [email or web address] Not available 09/28 11:29:52 Sister Family history of malignant neoplasm [email or web address] Not available 09/28 11:29:42 Sister Family history of diabetes mellitus [email or web address] Not available 09/28 11:29:52 Medical History Condition Response Other N High Blood Pressure N Kidney Stones N Depression N Lung Disease N GERD/Acid Reflux N Diabetes N Sexually Transmitted Infection N Bleeding Disorder N Cancer Y High Cholesterol N Heart Disease N Past Encounters Encounter ID Performer Location Encounter Start Date Encounter Closed Date Diagnosis/Indication Diagnosis SNOMED-CT Code Diagnosis ICD10 Code Diagnosis Note [id number] Juan Francisco Don MD [facility] [address] [facility],[address] [place] [address] 09/29/2023 11:15:44 10/06/2023 14:11:40 Microscopic hematuria 243677531 R31.29 bladder wall thickening . Health Concerns Section Related Observation LastModified by Organization Detai ls LastModified Time None Recorded Concern Status LastModified by Organization Details LastModified Time None Recorded Advance Directives Directive None Recorded Payers Insurance Date Sequence Insurance Name Policy Number Policy Burleson Covered Member ID Burleson Member ID Guarantor Name 07/10/2024 1 [place] [employer] Vik Thakkar [id number] Vik Thakkar 05/22/2024 1 MEDICA - MEDICA GOVERNMENT PROGRAMS (MEDICAID REPLACEMENT - HMO) Vik Engle [id number] Vik Thakkar 05/22/2024 1 [place] [employer] Ting Engle [id number] RaúlTaylor Thakkar 05/22/2024 1 [place] [employer] Vik Thakkar [id number] Vik Thakkar 06/05/2024 2 [place] Vik Robledoes [id number] Raúl Thakkar 05/22/2024 1 [place] [employer] Vik Engle [id number] Vik Thakkar 07/10/2024 2 MEDICA CHOICE [facility] (MEDICAID HMO) [id number] Vik Thakkar [id number] Vik Thakkar 07/10/2024 1 [facility] (MEDICARE REPLACEMENT/ADVA NTAGE - PPO) [id number] Vik Thakkar [id number] Vik Thakkar Notes Date Note Type Note [...] kidneys. CRF from MASON Don MD [address] [facility],[address] [facility], [place], [address], [facility] 09/29/2023 11:43:29
--- OUTSIDE RECORDS SUMMARY | 2024-11-09 17:54 | XMS_ITS | Encounter Summary ---
Author Organization [facility] Address [address] [facility] [place] [address] Care Team Providers Care Unit Aide Name Role Phone Gavin Lombardo Primary Care Provi moses Unavailable Kedar Tello MD Unavailable [phone] Rosamaria Garcia PA-C Primary Care Provider [phone] Encounter Details Date Type Department Care Team (Late st Contact Info) Description 08/24/2021 External Order Results [facility] [address] [place] [address] Outside, Provider Social History Tobacco Use Types Packs/Day Years Used Date Smoking Tobacco: Every Day Cigarettes 0.5 27 Smokeless Tobacco: Never Alcohol Use Standard Drinks/Week Comments Yes 0 (1 standard drink = 0.6 oz pur e alcohol) occ. Sex and Gender Information Value Date Recorded Sex Assigned at Not on file Legal Sex Male 5:19 AM [employer] Gender Identity Not on file Sexual Orientation [...] on filedocumented in this encounter Care Teams Unit Aide Relationship Specialty Start Date End Date Gavin Lombardo PA PCP - General Family Practice 07/31/20 12/14/23 Rosamaria Garcia PA-C [address] [place] [address] PCP - General 12/15/23 [place] [address] [place] [address] Assigned Gastroenterology Provider 01/29/23 08/21/24 documented as of this encounter
--- OUTSIDE RECORDS SUMMARY | 2024-11-09 17:54 | XMS_ITS | Clinical Summary ---
Author Organization [facility] Address [address] [place] [address] Care Team Providers Care Associate Professor Of Sociology Name Role Phone Rosamaria Garcia PA-C Primary [...] 4:41 PM CDT Hospital Encounter W2 [address] [place] [address] Adam Kimble MD Malik, Saad S, MD Varghese, Alvin, DO Bleeding Discharge Disposition: Returning Home/Self Care 09/27/2024 Travel from Last 3 Months Social History Tobacco Use Types Packs/Day Years Used Date Smoking Tobacco: Never Smokeless Tobacco: Never Tobacco Cessation:Counseling Given: Not Answered Alcohol Use Standard Drinks/Week Comments Not Currently 0 (1 standard drink = 0.6 oz pur e alcohol) [facility] Utilities Answer Date Recorded In the past 12 months has [facility] [employer], [employer], or water [employer] threatened to shut off services in your [...] any time in the past 12 m [facility], were you homeless or [...] (Lab Use Only) (09/28/2024 9:28 AM CDT) [facility] and Rh O Positive 09/28/2024 10:03 AM CDT [facility] Blood 09/28/2024 9:28 AM CDT 09/28/2024 9:31 AM CDT us Adam Kimble MD BLOOD BANK ORDERABLE Final Res ult Performing Organization Address [facility] Co de Phone Number [facility] [phone] [place] [address] * (ABNORMAL) Potassium, Serum (09/28/2024 9:28 AM CDT) [facility] Potassium 5.5(H) 3.4 - 5.1 mmol/L 09/28/2024 10:33 AM CDT [facility] Blood 09/28/2024 9:28 AM CDT 09/28/2024 9:31 AM CDT us Samson Billingsley DO CHEMISTRY ORDERABLE Final Resu lt Performing Organization Address City/[facility]/ZIP Co de Phone Number [address] [address] * Hepatitis B Surface Antigen (09/28/2024 9:28 AM CDT) HEP BS ANTIGEN Non-Reacti ve Non-Reacti ve 09/28/2024 10:59 AM CDT [facility] Blood 09/28/2024 9:28 AM CDT 09/28/2024 9:31 AM CDT Duglas Cunha MD IMMUNOLOGY ORDERABLE Final Resul t Performing Organization Address City/[facility]/ZIP Co de Phone Number [facility] [address] [place] [address] * Extra Tube PST (Lab Use Only) (09/28/2024 9:24 AM CDT) Blood 09/28/2024 9:24 AM CDT 09/28/2024 9:33 AM CDT Samson Billingsley DO CHEMISTRY ORDERABLE Final Resu lt Performing Organization Address [facility]/ZIP Co de Phone Number [facility] [address] [place] [address] * POCT Glucose Meter (09/28/2024 7:41 AM CDT) GLUCOSE WB METER 87 60 - 100 mg/dL 09/28/2024 7:58 AM CDT [facility] Blood 09/28/2024 7:41 AM CDT 09/28/2024 7:58 AM CDT Samson Billingsley DO LAB POINT OF CARE TEST RESULTS Final Result Performing Organization Address [facility]/ZIP Co de Phone Number [facility] [address] [place] [address] * (ABNORMAL) Basic Metabolic Profile (09/28/2024 4:37 AM CDT) Only the most recent of2 resultswithin the time period is included. Sodium 134(L) 136 - 145 mmol/L 09/28/2024 6:04 AM [facility] Potassium 5.8(H) 3.4 - 5.1 mmol/L 09/28/2024 6:04 AM [facility] Chloride 102 98 - 108 mmol/L 09/28/2024 6:04 AM [facility] Carbon Dioxide 20 20 - 31 mmol/L 09/28/2024 6:04 AM [facility] BUN (Urea Nitro) 41(H) 9 - 23 mg/dL 09/28/2024 6:04 AM [facility] Creatinine 12.16(HH) 0.73 - 1.18 mg/dL 09/28/2024 6:04 AM [facility] Comment:Critical Result(s) C alled at 05:59:28 09/28/2024 to and read back by Mike Robison RN by cruz Thomas GFR (CKD-EPI) 4.49(L) >60.00 mL/min/1. 73m2 09/28/2024 6:04 AM [facility] Comment:Calculation based on the Chronic Kidney Disease Epidemiology Collaboration (CKD-EPI) equation refit without adjustment for race. Glucose 119(H) 74 - 106 mg/dL 09/28/2024 6:04 AM [facility] Calcium, Serum 9.2 8.7 - 10.4 mg/dL 09/28/2024 6:04 AM [facility] Anion Gap 12.0 0.0 - 15.0 mmol/L 09/28/2024 6:04 AM [facility] Blood 09/28/2024 4:37 AM CDT 09/28/2024 4:59 AM T us Yazan Graham MD CHEMISTRY ORDERABLE Final Result [facility] [address] [place] [address] * Hepatitis B Surface Antibody (09/28/2024 4:37 AM CDT) HEP BS ATBY QUALITATIVE Reactive 09/28/2024 9:35 AM CDT [facility] Comment:>10 mIU/mL. Immune. Blood 09/28/2024 4:37 AM CDT 09/28/2024 4:59 AM CDT us Duglas Cunha MD IMMUNOLOGY ORDERABLE Final Resul t Performing Organization Address City/[facility]/ZIP Co de Phone Number [facility] [address] [facility] [facility] [place] [address] * (ABNORMAL) Hemoglobin (09/28/2024 4:37 AM CDT) [facility] Hemoglobin 10.0(L) 14.0 - 18.0 gm/dL 09/28/2024 5:06 AM CDT [facility] Blood 09/28/2024 4:37 AM CDT 09/28/2024 4:59 AM CDT us Yazan Graham MD HEMATOLOGY ORDERABLE Final Resul t Performing Organization Address City/[facility]/ZIP Co de Phone Number [address] [place] [address] * Type & Screen (09/27/2024 7:52 PM CDT) Pathologist [facility] and Rh O Positive 09/27/2024 8:54 PM CDT [facility] Antibody Screen Negative 09/27/2024 8:54 PM CDT [facility] Blood 09/27/2024 7:52 PM CDT 09/27/2024 7:59 PM CDT us Adam Kimble MD BLOOD BANK ORDERABLE Edited Re sult - Final Performing Organization Address City/[facility]/ZIP Co de Phone Number [facility] [address] [facility] [place] [address] [place] [address] * (ABNORMAL) CBC (09/27/2024 7:52 PM CDT) WBC 10.4 4.3 - 10.8 K/uL 09/27/2024 8:05 PM T [facility] RBC 3.28(L) 4.60 - 6.20 M/uL 09/27/2024 8:05 PM T [facility] Hemoglobin 10.8(L) 14.0 - 18.0 gm/dL 09/27/2024 8:05 PM T [facility] Hematocrit 32.8(L) 40.0 - 54.0 % 09/27/2024 8:05 PM T [facility] MCV 100 80 - 100 fL 09/27/2024 8:05 PM T [facility] MCH 33 27 - 33 pg 09/27/2024 8:05 PM T [facility] MCHC 33 33 - 36 gm/dL 09/27/2024 8:05 PM T [facility] RDW 14.2 11.5 - 14.5 % 09/27/2024 8:05 PM [facility] Platelet Count 149(L) 150 - 400 K/UL 09/27/2024 8:05 PM [facility] MPV 10.2 6.5 - 12 fL 09/27/2024 8:05 PM [facility] Blood 09/27/2024 7:52 PM CDT 09/27/2024 7:59 PM CDT us Adam Kimble MD HEMATOLOGY ORDERABLE Final Res ult [facility] [address] [address] * Protime/INR (09/27/2024 7:52 PM CDT) INR 1.0 0.9 - 1.2 09/27/2024 8:23 PM T [facility] Blood 09/27/2024 7:52 PM CDT 09/27/2024 7:59 PM CDT Adam Kimble MD COAGULATION ORDERABLE Final Re sult Performing Organization Address [facility] Co de Phone Number [facility] [address] [place] [address] * (ABNORMAL) PTT (09/27/2024 7:52 PM CDT) PTT 39.6(H) 24.0 - 31.0 sec. 09/27/2024 8:23 PM CDT [facility] Blood 09/27/2024 7:52 PM CDT 09/27/2024 7:59 PM CDT Narrative [facility] - 09/27/2024 8:23 PM CDT aPTT Therapeutic Reference Ranges: Heparin protocol: 38 - 75 seconds standard/low dose 43 - 86 seconds high dose Argatroban protocol: 60 - 85 seconds Bivalirudin protocol: 43 - 71 seconds Adam Kimble MD COAGULATION ORDERABLE Final Re sult Performing Organization Address [facility] Co de Phone Number [facility] [address] [place] [address] from Last 3 Months Insurance [address] [place] [address] [facility] MEDICARE ADVANTAGE MEDICA SNBC/MSC Advance Directives For more information, please contact: [phone] * Full Code (Latest Code Status on File) Date Activated Date Inactivated Comments 09/27/2024 9:28 PM 09/28/2024 10:41 PM Question Answer Comments How was code status determined? Patient Care Teams Associate Professor Of Sociology Relationship Specialty Start Date End Date Rosamaria Garcia PA-C [address] [place] [address] PCP - General 09/27/24
--- OUTSIDE RECORDS SUMMARY | 2024-11-09 17:54 | XMS_ITS | Clinical Summary ---
Author Organization [facility] Address [facility] [place] [address] Care Team Providers Care Cat Scan Tech Name Role Phone Radha Baires HAULAGE BOSS Unavailable Unavailable Rosamaria Dunn Unavailable Unavailable Alison Otto EXCHANGE MECHANIC Unavailable [phone] Christopher Collins MBBS Unavailable [phone] Nik Flores SOCK KNITTING MACHINE OPERATOR Unavailable [phone] Rosamaria Garcia Primary Care Provider [phone] Allergies Active Allergy Reactions Criticality Noted Date [...] & Plan: Bilateral great toe Stable Encouraged carpenter cradle and dolly consult and patient agree Type 2 diabetes [...] Assessment & Plan: ESRD Stable Dialysis at: [facility] on: MWF via fistula Diet: [...] M, W, F with Dr. Brown in [place]. Dependence on renal dialysis 06/08/2011 08/23/2019 Overview (09/21/2017): Overview: Overview: Dialysis M, W, F with Dr. Brown in [place]. ACP (advance care planning) 03/14/2011 05/11/2023 Overview (03/14/2011): Patient has identified Health Care Agent(s): Patient verbally identifies his significant other as health care decision maker however, she does not have a phone number at present. To contact Patient's family/SO contact can be made with Abhay Tovar (brother in law) [phone] and Thomas Carty [phone] Friend Patient has Advance Care Plan Documents [...] Encounters Date Type Department Care Team Description 11/09/2024 Nurse Triage [facility] [address] [place] [address] Rosamaria Garcia PA Abdominal Pain (8/10) 11/01/2024 Telephone [facility] [address] [place] [address] Rosamaria Garcia PA Follow Up (ER) 10/31/[address] [address] Rosamaria Garcia PA Concerns (abdominal pain) 10/22/[address] [address] Rosamaria Garcia PA Questions (oxyCODONE 10 mg tablet /) 10/18/2024 Telephone [facility] [address] [facility] [address] [place] [phone] Martine Calderon RN Transplant Eval 10/16/[address] [address] Rosamaria Garcia PA electric chair prescription 10/04/[address] [address] Rosamaria Garcia PA Medication Management (Pain medication) 10/03/[address] [address] Rosamaria Garcia PA Medication Management 10/01/[address] [address] Rosamaria Garcia PA Questions (oxyCODONE 10 mg tablet) 09/25/[address] [address] Rosamaria Garcia PA Refill Request (oxyCODONE 10 mg tablet/) 09/20/[address] [address] Rosamaria Garcia PA Questions 09/13/2024 Nurse Triage [address] [address] Rosamaria Garcia PA High Blood Pressure 09/07/2024 Telephone [facility] [address] [place] [address] Rosamaria Garcia PA Medication Management (Blood pressure meds) 09/06/2024 Telephone [facility] Providers [address] [phone] Jovanna Sands, tube tester Eval (Follow up) 09/04/2024 9:50 AM CDT Office Visit [facility] [address] [place] [address] Rosamaria Garcia PA ER Follow up (08/23 abdominal pain) 09/04/2024 Travel 08/28/2024 Refill [facility] [address] [place] [address] Rosamaria Garcia PA Refill Request (Metoclopramide) 08/28/2024 Refill [facility] [address] [place] [address] Rosamaria Garcia PA Refill Request (Oxycodone ) 08/23/2024 Orders Only [facility] Scanner 1 scan: (1-Ord) [place] [place] ABDOMEN PELVIS WO CON, 08/23/2024 08/15/2024 Telephone [facility] Providers [address] [place] [phone] Jovanna Sands, tube tester Eval from Last 3 Months Immunizations Immunization [...] on file Legal Sex Male 5:23 AM STRATEGIC ACCOUNT EXECUTIVE Gender Identity Not on file Sexual Orientation Not on file Occupation Industry Job Start Date Job End Date unempolyed Not on file Not on file Not on file Obstetrics History Last Filed Vital Signs Vital Sign Reading Time Taken Comments Blood Pressure 184/96 09/04/2024 9:40 AM CDT Pulse 77 09/04/2024 9:40 AM CDT Temperature 36.3 C (97.4 F) 07/06/2024 12:00 AM STRATEGIC ACCOUNT EXECUTIVE Respiratory Rate 18 07/06/2024 4:00 AM STRATEGIC ACCOUNT EXECUTIVE Oxygen Saturation 100% 09/04/2024 9:40 AM CDT Inhaled Oxygen Concentration - - Weight 61.7 kg (136 lb) 09/04/2024 9:40 AM CDT Height 166.4 cm (5' 5.5) 07/05/2024 1:39 PM STRATEGIC ACCOUNT EXECUTIVE Body Mass Index 22.29 07/05/2024 1:39 PM STRATEGIC ACCOUNT EXECUTIVE Plan of Treatment Upcoming Encounters Date Type Department Care Team (Latest Contact Info) Description 11/13/2024 10:30 AM CDT Office Visit [facility] [address] [place] [address] Rosamaria Garcia PA [address] [place] [address] 11/29/2024 7:20 AM CDT Hospital Encounter [facility] [address] [place], [place] [phone] Hannah Armstrong MD [address] [address] 11/29/2024 8:20 AM CDT - 11/29/2024 9:05 AM CDT Surgery [facility] [address] [place] [address] Hannah Armstrong MD [address] [facility] [address] [place] [address] ESOPHAGOGASTRODUODENOSCOPY Scheduled Procedures Name Priority Associated Diagnoses [...] Mychart, Provider Medical Devices Implanted Type Area Consultant Teacher Device Identifier Shelf Expiration Date Model / Serial / Lot Graft Vasc 8mm 40cm Propaten Thin Wall - [id number] Implanted:Qty: 1 on 04/10/2015 by Ash Zambrano MD at [facility] Left: Arm [employer] 10/23/2018 [id number] / / Power Port Isp Mri 6fr [id number] - Stan Only - [id number] Implanted:Qty: 1 on 01/27/2017 by Kiet Hernandez DO at [facility] N/A: Chest [employer] 03/01/2018 [id number] / / [id number] Description:PowerPort isp M. R.I. Implantable Port Sys Ancr Sut 4.75mm Biocomposite - [id number] Implanted:Qty: 1 on 10/27/2023 by Milind Arroyo MD at [facility] Right: Shoulder [employer] 06/30/2027 [id number] CSL / / [id number] Procedures Procedure Name Priority Date/Time Associated Diagnosis Comments AMB CONSULT TO GASTROENTEROLOGY Routine 09/18/2024 7:38 PM CDT Gastroparesis SCAN-CT INTERPRETATION 12:00 AM CDT LIPID PANEL W REFLEX MEASURED LDL Routine 04/17/2024 10:16 AM STRATEGIC ACCOUNT EXECUTIVE Type 2 diabetes mellitus with chronic kidney [...] AM CDT) Anatomical Region Laterality Modality Other Scanner OTHER Final Result * LIPID PANEL W REFLEX MEASURED LDL (04/17/2024 10:16 AM STRATEGIC ACCOUNT EXECUTIVE) CHOLESTEROL, TOTAL 145 <200 mg/dL [facility] HDL CHOLESTEROL 64 > OR = 40 mg/dL [facility] TRIGLYCERIDES 71 <150 mg/dL [facility] LDL-CHOLESTEROL 66 mg/dL (calc) [facility] Comment: Reference range: <100 Desirable range <100 mg/dL for primary prevention; <70 mg/dL for patients with CHD or diabetic patients with > or = 2 CHD risk factors. LDL-C is now calculated using the Parrish-Kay calculation, which is a validated novel method providing better accuracy than the Friedewald equation in the estimation of LDL-C. Parrish SS et al. JULIEN. 2013;310(19): 3436-1435 (http://education.[employer]/faq/JYJ819) CHOL/HDLC RATIO 2.3 <5.0 (calc) [facility] NON HDL CHOLESTEROL 81 <130 mg/dL (calc) [facility] Comment: For patients with diabetes plus 1 major ASCVD risk factor, treating to a non-HDL-C goal of <100 mg/dL (LDL-C of <70 mg/dL) is considered a therapeutic option. Blood BLOOD SPECIMEN / Unknown 04/17/2024 10:16 AM STRATEGIC ACCOUNT EXECUTIVE 04/17/2024 10:16 AM STRATEGIC ACCOUNT EXECUTIVE Rosamaria OBRIEN CHEMISTRY Final Resu lt [facility] [address] [place] [address], [place] [phone] [facility] [address] [phone] * COLONOSCOPY (12/15/2022 3:12 PM CDT) 12/15/2022 3:12 PM CDT Narrative Transcriptions Arthur Sánchez MD - 12/15/2022 4:16 PM CDT Procedural Care Center Patient Name: Vik Thakkar Procedure Date: 12/15/2022 Gender: Male Date of : 1970 Admit Type: Outpatient Procedure: Colonoscopy Proceduralist: Arthur Sánchez MD - [facility] Indications/Pre-Op Diagnosis: High risk colon cancer surveillance:Personal history of colon cancer Medications: Monitored Anesthesia Care Procedure Description: The patient had risks, benefits and alternatives explained to andgave informed consent. The patient had a stable cardiopulmonary status and judged an adequate candidate for conscious sedation. The endoscope [id number] was passed through the anus andadvanced to [...] Non Reactive 10/05/2022 1:09 PM CDT [facility] Comment: HIV Negative HIV-1/HIV-2 antibodies and HIV-1 p24 antigen were NOT detected. There is no laboratory evidence of HIV infection. Blood BLOOD SPECIMEN / Unknown Venipuncture / Unknown 10/01/2022 3:44 PM CDT 10/01/2022 3:46 PM CDT Narrative [facility] - 10/05/2022 1:09 PM CDT Performed at: [address] [place] [id number] Machine Sprayer: Sudheer Yanez MD, Phone: [phone] [facility] Fin al Result Performing Organization Address City/[facility]/ZIP Co de Phone Number [facility] [place] [address], * ANTI HCV (12/26/2021 5:58 AM CDT) HEPATITIS C ANTIBODY Non-React fuentes Non-React fuentes 12/28/2021 5:08 PM CDT [facility] Comment:Antibodies to HCV no t detected; does not exclude the possibility of exposure to HCV. Blood BLOOD SPECIMEN / Unknown Venipuncture / Unknown 12/26/2021 5:58 AM CDT 12/26/2021 6:33 AM CDT [facility] Fin al Result Performing Organization Address City/[facility]/ZIP Co de Phone Number [facility] [address] [place] [address], from Last 3 Months or Most Recently [...] 06/02/2020 Insurance MEDICARE PART A HB ONLY [employer] [facility] [place] [address] [facility] PB ONLY Advance [...] Code Status Discussion: Reviewed Preferences Care Teams Cat Scan Tech Relationship Specialty Start Date End Date Rosamaria Garcia PA [address] [place] [address] PCP - General Physician Certified Orthotist Practice Manager 12/21/22 Radha Baires HAULAGE BOSS Psychiatry Nurse Practitioner 07/02/16 Rosamaria Dunn Cancer Nurse Coordinator Registered Nurse 11/15/16 Alison Otto, [facility] [address] [place] [address] Mental Health Consultants Supervisor Jewelry Department 01/18/17 Christopher Collins MBBS [address] [place] [address] Oncology Oncology 01/11/17 Mark, Nik Crowley SOCK KNITTING MACHINE OPERATOR [address] [place] [address] Chain Maker Machine 01/28/17
--- OUTSIDE RECORDS SUMMARY | 2024-11-09 17:54 | XMS_ITS | Referral Summary ---
Author Organization [facility] Address [address] [place] [address] Care Team Providers Care Appraisal Coordinator Name Role Phone Rosamaria Garcia PA-C Primary Care Provider + Encounters Date Type Department Care Team Description 09/27/2024 7:21 PM CDT - 09/28/2024 4:41 PM CDT Hospital Encounter W[address] [place] [address] [id number] Adam Kimble MD Malik, Saad S, MD [...] drink = 0.6 oz pur e alcohol) [facility] Utilities Answer Date Recorded In the past 12 months [facility] [employer] [employer], or water [employer] threatened to shut off services in your [...] any time in the past 12 m [facility], were you homeless or living in a retirement (including now)? No 09/27/2024 Sex and Gender [...] Rh O Positive 09/28/2024 10:03 AM CDT [facility] Blood 09/28/2024 9:28 AM CDT 09/28/2024 9:31 AM CDT us Adam Kimble MD BLOOD BANK ORDERABLE Final Res ult Performing Organization Address [facility] de Phone Number [facility] [address] [place] [address] [facility] [address] [place] [address] * (ABNORMAL) Potassium, Serum (09/28/2024 9:28 AM CDT) Potassium 5.5(H) 3.4 - 5.1 mmol/L 09/28/2024 10:33 AM CDT [facility] Blood 09/28/2024 9:28 AM CDT 09/28/2024 9:31 AM CDT us Samson Billingsley DO CHEMISTRY ORDERABLE Final Resu lt Performing Organization Address [facility] Phone Number [facility] [address] [place] [address] * Hepatitis B Surface Antigen (09/28/2024 9:28 AM CDT) HEP BS ANTIGEN Non-Reacti ve Non-Reacti ve 09/28/2024 10:59 AM CDT [facility] Blood 09/28/2024 9:28 AM CDT 09/28/2024 9:31 AM CDT us Duglas Cunha MD IMMUNOLOGY ORDERABLE Final Resul t Performing Organization Address [facility] de Phone Number [facility] [address] [place] [address] * Extra Tube PST (Lab Use Only) (09/28/2024 9:24 AM CDT) Blood 09/28/2024 9:24 AM CDT 09/28/2024 9:33 AM CDT us Samson Billingsley DO CHEMISTRY ORDERABLE Final Resu lt Performing Organization Address [facility]/ZIP Co de Phone Number [facility] [place] [id number] * POCT Glucose Meter (09/28/2024 7:41 AM CDT) [facility] GLUCOSE WB METER 87 60 - 100 mg/dL 09/28/2024 7:58 AM [facility] Blood 09/28/2024 7:41 AM CDT 09/28/2024 7:58 AM CDT Samson Billingsley DO LAB POINT OF CARE TEST RESULTS Final Result [facility] [place] [id number] * (ABNORMAL) Basic Metabolic Profile (09/28/2024 4:37 AM CDT) Only the most recent of2 resultswithin the time period is included. [facility] Sodium 134(L) 136 - 145 mmol/L 09/28/2024 6:04 AM [facility] Potassium 5.8(H) 3.4 - 5.1 mmol/L 09/28/2024 6:04 AM [facility] Chloride 102 98 - 108 mmol/L 09/28/2024 6:04 AM [facility] Carbon Dioxide 20 20 - 31 mmol/L 09/28/2024 6:04 AM [facility] BUN (Urea Nitro) 41(H) 9 - 23 mg/dL 09/28/2024 6:04 AM [facility] Creatinine 12.16(HH) 0.73 - 1.18 mg/dL 09/28/2024 6:04 AM [facility] Comment:Critical Result(s) C alled at 05:59:28 09/28/2024 to and read back by Mike Robison RN by cruz Thomas GFR (CKD-EPI) 4.49(L) >60.00 mL/min/1. 73m2 09/28/2024 6:04 AM [facility] Comment:Calculation based on the Chronic Kidney Disease Epidemiology Collaboration (CKD-EPI) equation refit without adjustment for race. Glucose 119(H) 74 - 106 mg/dL 09/28/2024 6:04 AM CDT [facility] Calcium, Serum 9.2 8.7 - 10.4 mg/dL 09/28/2024 6:04 AM CDT [facility] Anion Gap 12.0 0.0 - 15.0 mmol/L 09/28/2024 6:04 AM CDT [facility] Blood 09/28/2024 4:37 AM CDT 09/28/2024 4:59 AM CDT us Yazan Graham MD CHEMISTRY ORDERABLE Final Result Performing Organization Address [facility] de Phone Number [address] [phone] * Hepatitis B Surface Antibody (09/28/2024 4:37 AM CDT) HEP BS ATBY QUALITATIVE Reactive 09/28/2024 9:35 AM CDT [facility] Comment:>10 mIU/mL. Immune. Blood 09/28/2024 4:37 AM CDT 09/28/2024 4:59 AM CDT us Duglas Cunha MD IMMUNOLOGY ORDERABLE Final Resul t Performing Organization Address [facility] de Phone Number [address] [phone] * (ABNORMAL) Hemoglobin (09/28/2024 4:37 AM CDT) Hemoglobin 10.0(L) 14.0 - 18.0 gm/dL 09/28/2024 5:06 AM CDT [facility] Blood 09/28/2024 4:37 AM CDT 09/28/2024 4:59 AM CDT us Yazan Graham MD HEMATOLOGY ORDERABLE Final Resul t Performing Organization Address [facility] Co de Phone Number [facility] [address] [place] [address] * Type & Screen (09/27/2024 7:52 PM CDT) Pathologist [facility] and Rh O Positive 09/27/2024 8:54 PM CDT [facility] Antibody Screen Negative 09/27/2024 8:54 PM CDT [facility] Blood 09/27/2024 7:52 PM CDT 09/27/2024 7:59 PM CDT us Adam Kimble MD BLOOD BANK ORDERABLE Edited Re sult - Final Performing Organization Address [facility] Co de Phone Number [facility] [address] [place] [address] [facility] [address] [place] [address] * (ABNORMAL) CBC (09/27/2024 7:52 PM CDT) [facility] WBC 10.4 4.3 - 10.8 K/uL 09/27/2024 8:05 PM T [facility] RBC 3.28(L) 4.60 - 6.20 M/uL 09/27/2024 8:05 PM [facility] Hemoglobin 10.8(L) 14.0 - 18.0 gm/dL 09/27/2024 8:05 PM T [facility] Hematocrit 32.8(L) 40.0 - 54.0 % 09/27/2024 8:05 PM [facility] MCV 100 80 - 100 fL 09/27/2024 8:05 PM T [facility] MCH 33 27 - 33 pg 09/27/2024 8:05 PM [facility] MCHC 33 33 - 36 gm/dL 09/27/2024 8:05 PM [facility] RDW 14.2 11.5 - 14.5 % 09/27/2024 8:05 PM CDT [facility] Platelet Count 149(L) 150 - 400 K/UL 09/27/2024 8:05 PM CDT [facility] MPV 10.2 6.5 - 12 fL 09/27/2024 8:05 PM CDT [facility] Blood 09/27/2024 7:52 PM CDT 09/27/2024 7:59 PM CDT us Adam Kimble MD HEMATOLOGY ORDERABLE Final Res ult Performing Organization Address City/[facility]/ZIP Co de Phone Number [facility] [address] [place] [address] * Protime/INR (09/27/2024 7:52 PM CDT) INR 1.0 0.9 - 1.2 09/27/2024 8:23 PM CDT [facility] Blood 09/27/2024 7:52 PM CDT 09/27/2024 7:59 PM CDT us Adam Kimble MD COAGULATION ORDERABLE Final Re sult Performing Organization Address [facility] Co de Phone Number [facility] [place] [address] * (ABNORMAL) PTT (09/27/2024 7:52 PM CDT) PTT 39.6(H) 24.0 - 31.0 sec. 09/27/2024 8:23 PM CDT [facility] Blood 09/27/2024 7:52 PM CDT 09/27/2024 7:59 PM CDT Narrative [facility] - 09/27/2024 8:23 PM CDT aPTT Therapeutic Reference Ranges: Heparin protocol: 38 - 75 seconds standard/low dose 43 - 86 seconds high dose Argatroban protocol: 60 - 85 seconds Bivalirudin protocol: 43 - 71 seconds us Adam Kimble MD COAGULATION ORDERABLE Final Re sult [facility] [address] [id number] from Last 3 Months Insurance [address] [place] [id number] [facility] MEDICARE ADVANTAGE MEDICA SN[employer]/MSC Advance Directives For more information, please contact: [phone] * Full Code (Latest Code Status on File) Date Activated Date Inactivated Comments 09/27/2024 9:28 PM 09/28/2024 10:41 PM Question Answer Comments How was code status determined? Patient Care Teams Appraisal Coordinator Relationship Specialty Start Date End Date Rosamaria Garcia PA-C [address] [place] [address] PCP - General 09/27/24
--- OUTSIDE RECORDS SUMMARY | 2024-11-09 17:54 | XMS_ITS | Encounter Summary ---
Author Organization [facility] Address [address] [place] [address] Care Team Providers Care Store Product Demonstrator Name Role Phone Courtney Guardado MD Primary Care Provider [phone] Gavin Lombardo Primary Care Provi moses Kedar Dang MD Unavailable [phone] Rosamaria Garcia PA-C Primary Care Provider [phone] Encounter Details Date Type Department Care Team (Late st Contact Info) Description 05/24/2018 External Order Results [facility] [address] [place] [address] Outside, Provider Social History Tobacco Use Types Packs/Day Years Used Date Smoking Tobacco: Every Day Cigarettes 0.5 27 Smokeless Tobacco: Never Alcohol Use Standard Drinks/Week Comments Yes 0 (1 standard drink = 0.6 oz pur e alcohol) occ. 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 Gender Identity Not on file Sexual Orientation Not on file documented as of this encounter Plan of Treatment Not on file documented as of this encounter Visit Diagnoses Not on filedocumented in this encounter Care Teams Store Product Demonstrator Relationship Specialty Start Date End Date Courtney Guardado MD PCP - General 03/09/12 07/30/20 Gavin Lombardo PA PCP - General Family Practice 07/31/20 12/14/23 Rosamaria Garcia PA-C [address] [place] [address] PCP - General 12/15/23 [place] [address] [place] [address] Assigned Gastroenterology Provider 01/29/23 08/21/24 documented as of this encounter
--- OUTSIDE RECORDS SUMMARY | 2024-11-09 17:54 | XMS_ITS | Encounter Summary ---
Author Organization [facility] Address [address] [place] [address] Care Team Providers Care Tube Builder Name Role Phone Rosamaria Garcia PA-C Primary Care Provider + Encounter Details Date Type Department Care Team (Latest Contact Info) Description 09/27/2024 Travel Social History Tobacco Use Types Packs/Day Years Used Date Smoking Tobacco: Never Smokeless Tobacco: Never Alcohol Use Standard Drinks/Week Comments Not Currently 0 (1 standard drink = 0.6 oz pur e alcohol) [facility] Utilities Answer Date Recorded In the past 12 months has [employer], gas, oil, or water [facility] threatened to shut off services in your [...] any time in the past 12 m [facility], were you homeless or living in [...] on filedocumented in this encounter Care Teams Tube Builder Relationship Specialty Start Date End Date Rosamaria Garcia PA-C [address] [place] [address] PCP - General 09/27/24 documented as of this encounter
--- OUTSIDE RECORDS SUMMARY | 2024-11-09 17:55 | XMS_ITS | Clinical Summary ---
Author Organization [facility] Address [address] [facility] 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 Gender Identity Not on file Sexual [...] PCV20 or PCV21) 06/13/2024 06/13/2019, 05/26/2018, 03/17/2011 INFLUENZA VACCINE (#1) 2024 , 02/23/2023, 02/05/2022, Additional history exists BMP 07/13/2025 07/13/2024, 04/1 05/2023, 01/04/2023 COLONOSCOPY 12/15/2032 12/15/2022, 1009/2016, 10/25/2016, Additional history exists COLORECTAL CANCER SCREENING 12/15/2032 HEPATITIS C SCREENING Completed 12/26/2021 HIV SCREENING Completed 10/01/2022 HPV VACCINE Aged Out No longer eligi [...] - 107 mmol/L 07/13/2024 3:29 PM CDT LABORATORY Carbon Dioxide (CO2) 22 22 - [...] - BLOOD ORDERAB LES Final Result LABORATORY [facility] [address] [facility] (1st floor, no room number) [place] [address], [facility] from Last 3 Months or Most Recently Relevant to Health Maintenance Insurance [employer] [place] [employer] MEDICARE ADVANTAGE [employer] [place] [employer] MEDICARE ADVANTAGE Care Teams Residential Insurance Inspector Relationship Specialty Start Date End Date Rosamaria Garcia PA-C [address] [place] [address] PCP - General 12/15/23
[2024-11-09 18:45] VITALS: BP 180/114; PULSE 65; RESP 20; TEMP 36.7; O2SAT 100; BMI 22.0
[2024-11-09 19:00] VITALS: BP 165/85; PULSE 67; RESP 20; TEMP 36.9; O2SAT 100
--- NOTE | 2024-11-09 19:00 | CRLHL7_ITS ---
For Patients: As a result of the Century Cures Act, medical imaging exams and procedure reports are released immediately into your electronic medical record. You may view this report before your referring provider. If you have questions, please contact your health care provider. Indication: constipation. hx colon cancer Technique: Supine and left lateral decubitus views of the abdomen/pelvis Comparison: CT abdomen/pelvis on August 23, 2024 and priors Findings/Impression: No evidence of bowel obstruction. No free air. Moderate stool burden throughout the colon. Anastomotic suture material overlies the midline pelvis. The lung bases are clear. No acute osseous abnormality. Dictated by Jimmy Zimmerman MD @ 11/09/2024 8:39:12 PM (Electronically Signed)
[2024-11-09 19:06] VITALS: O2SAT 100
[2024-11-09 19:09] LABS: Lactate* 0.9 mmol/L (0.5-1.9)
[2024-11-09] MEDS: DOCUSATE SODIUM/BENZOCAINE 5 ML ENEMA PR (19:10)
--- NOTE | 2024-11-09 19:11 | ED.ABDPAIN ---
HPI - Abdominal Pain General Date Seen: 11/09/24 Chief Complaint: Abdominal Pain Stated Complaint: Stomach pain Time Seen by Provider: 11/09/24 17:59 Source: patient Mode of arrival: ambulatory Limitations: no limitations History of Present Illness HPI narrative: Patient is a 54-year-old gentleman who has end-stage renal failure, Tuesday dialysis presents here with abdominal pain, and inability to have a bowel movement. He was having lots of bowel movements when he was seen last in the ER on October 31. 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 He has been given going to his dialysis this week, Tuesday although he cut short because he says he is having abdominal pain. He says he has not really eaten anything in the last 2 weeks. Has not really lost any weight, has had a couple episodes of vomiting, but no vomiting blood or coffee grounds. Says he is not passing gas. Is worried that he may be backed up. Does have a history of chronic abdominal pain. I see in his chart. He actually disputes this and says that he has chronic back pain. When I asked him if 1 not he is taking his Oxy could he says he has not taken his Oxy since yesterday. He says he does not want a wasted throw it up, has his doctor will not give him anymore. No history of fevers chills, still makes a little bit a urine, but denies any dysuria frequency. Related Data Home Medications ?Medication ?Instructions ?Recorded ?Confirmed amlodipine 10 mg tablet 10 mg PO DAILY 12/26/21 09/27/24 atorvastatin 40 mg tablet 40 mg PO DAILY 12/26/21 09/27/24 diclofenac sodium 1 % topical gel 2 g topical 12/26/21 ferric citrate 210 mg iron tablet 2 tab PO TID 12/26/21 09/27/24 (Auryxia) lidocaine-prilocaine 2.5 %-2.5 % 1 applic topical DAILY 12/26/21 09/27/24 topical cream metoprolol tartrate 25 mg tablet 25 mg PO Q12H 12/26/21 09/27/24 sennosides 8.6 mg tablet (Suyapa-ulysses) 8.6 mg PO DAILY PRN 08/27/22 05/29/25 sevelamer carbonate 800 mg tablet 2,400 mg PO TID 12/26/21 09/27/24 vit B,C-folic ac 800 mcg-zinc 12.5 1 tab PO DAILY 12/26/21 09/27/24 mg-selen-D3 2,000 unit-vit E tablet (RenaPlex-D) sucralfate 100 mg/mL oral 1 g PO BID 02/11/23 09/27/24 suspension (Carafate) tizanidine 2 mg tablet 2 mg PO QPM 02/11/23 09/27/24 dicyclomine 20 mg tablet 20 mg PO cramps 08/23/24 escitalopram oxalate 5 mg tablet 5 mg PO QAM 08/23/24 09/27/24 metoclopramide HCl 5 mg tablet 2.5 mg PO BID PRN abdominal pain 08/23/24 09/27/24 nortriptyline 10 mg capsule mg PO 08/23/24 oxycodone 10 mg tablet 15 mg PO QID 08/23/24 09/27/24 aspirin 81 mg tablet,delayed mg PO 09/27/24 release furosemide 40 mg tablet 80 mg PO 09/27/24 ondansetron HCl 4 mg tablet 4 mg PO Q8H PRN 09/27/24 09/27/24 Previous Rx's ?Medication ?Instructions ?Recorded fidaxomicin 200 mg tablet 200 mg PO BID 10 days #20 tabs 10/21/22 fidaxomicin 200 mg tablet (Dificid) 200 mg PO BID 10 days #20 tabs 10/31/24 Allergies Allergy/AdvReac Type Severity Reaction Status Date / Time lisinopril Allergy Severe angioedema Verified 09/27/24 16:29 Penicillins Allergy Unknown Verified 09/27/24 16:29 hydromorphone (From Dilaudid) AdvReac nausea/vomi Verified 09/27/24 16:29 ting Review of Systems Status of ROS Reports: 10 or more systems reviewed and unremarkable except as noted in History and below [facility] Medical History Type 2 diabetes mellitus, without long-term current use of insulin ?E11.9 - Type 2 diabetes mellitus without complications (ICD-10) Hypertension ?I10 - Essential (primary) hypertension (ICD-10) Malignant neoplasm of sigmoid colon ?C18.7 - Malignant neoplasm of sigmoid colon (ICD-10) Spondylosis of lumbar region without myelopathy or radiculopathy ?M47.816 - Spondylosis without myelopathy or radiculopathy, lumbar region (ICD-10) Bilateral hip pain ?M25.551 - Pain in right hip (ICD-10) ?M25.552 - Pain in left hip (ICD-10) Spinal stenosis, lumbar region without neurogenic claudication ?M48.061 - Spinal stenosis, lumbar region without neurogenic claudication (ICD-10) Lumbar foraminal stenosis ?M48.061 - Spinal stenosis, lumbar region without neurogenic claudication (ICD-10) Chronic abdominal pain ?R10.9 - Unspecified abdominal pain (ICD-10) ?G89.29 - Other chronic pain (ICD-10) Chronic pain of both shoulders ?M25.511 - Pain in right shoulder (ICD-10) ?M25.512 - Pain in left shoulder (ICD-10) ?G89.29 - Other chronic pain (ICD-10) Peripheral polyneuropathy ?G62.9 - Polyneuropathy, unspecified (ICD-10) Chronic thoracic back pain ?M54.6 - Pain in thoracic spine (ICD-10) ?G89.29 - Other chronic pain (ICD-10) GERD (gastroesophageal reflux disease) ?K21.9 - Gastro-esophageal reflux disease without esophagitis (ICD-10) Chronic constipation ?K59.09 - Other constipation (ICD-10) Hematemesis ?K92.0 - Hematemesis (ICD-10) Anxiety and depression ?F41.9 - Anxiety disorder, unspecified (ICD-10) ?F32.A - Depression, unspecified (ICD-10) ESRD on hemodialysis ?N18.6 - End stage renal disease (ICD-10) ?Z99.2 - Dependence on renal dialysis (ICD-10) Secondary hyperparathyroidism (of renal origin) ?N25.81 - Secondary hyperparathyroidism of renal origin (ICD-10) Surgical History History of colectomy ?Z90.49 - Acquired absence of other specified parts of digestive tract (ICD-10) History of cholecystectomy ?Z90.49 - Acquired absence of other specified parts of digestive tract (ICD-10) Social History Smoking Status: Former smoker Do you use any of these nicotine containing products: None Second hand tobacco smoke exposure: No How often do you have a drink containing alcohol: never How often do you have six or more drinks on one occasion: Never AUDIT-C Alcohol total score: 0 Non-prescribed substance use: marijuana (any form) service: No Exam Narrative: Exam Narrative: On examination in room 2, he initially is rocking, but is able to get up normally walk to the bed, and lay back, his abdomen is entirely scaphoid, there is no evidence of distension notable. Oropharynx is normal his neck is supple chest is good air entry bilaterally heart sounds are normal. Abdomen is soft, and very distractible, he has no pain with distraction, and when he does describe the pain to me it is over his whole abdomen, is bowel sounds are occasional throughout his whole abdominal area. Extremities are normal. With a nurse present rectal exam is done shows he has a lot of stool in the rectal vault. I was able to the partially disimpacted him at this point. Const: Vital Signs, click to edit/add: Vital Signs - 24 hr 11/09/24 18:45 11/09/24 19:00 11/09/24 19:06 Temperature 98.0 F 98.5 F Pulse Rate [Pulse Oximeter] 65 67 Respiratory Rate 20 20 Blood Pressure [Ri ght Upper Arm] 180/114 H 165/85 H Pulse Oximetry 100 100 100 Oxygen Delivery Me thod Room Air Room Air 11/09/24 19:14 Temperature 98.5 F Pulse Rate [Pulse Oximeter] 67 Respiratory Rate 20 Blood Pressure [Ri ght Upper Arm] 165/85 H Pulse Oximetry 100 Oxygen Delivery Me thod Room Air Documenting provider has reviewed patient's vital signs: yes Course Course ED Course: Patient had a large bowel movement feels better, and had to leave for a family emergency he declined any more blood test, and said he just wants the results sent to his primary care physician, he says he feels better at this time, and wants to leave. Vital Signs Vital signs: Initial Vital Signs Temperature 98.0 F 11/09/24 18:45 Temperature Source Temporal Artery Scan 11/09/24 18:45 Pulse Rate 65 11/09/24 18:45 Respiratory Rate 20 11/09/24 18:45 Blood Pressure 180/114 H 11/09/24 18:45 Blood Pressure Mean 136 H 11/09/24 18:45 Blood Pressure Position Sitting 11/09/24 18:45 Pulse Oximetry 100 11/09/24 18:45 Oxygen Delivery Method Room Air 11/09/24 18:45 Vital Signs Temperature 98.0 F 11/09/24 18:45 Pulse Rate 65 11/09/24 18:45 Respiratory Rate 20 11/09/24 18:45 Blood Pressure 180/114 H 11/09/24 18:45 Pulse Oximetry 100 11/09/24 18:45 Oxygen Delivery Method Room Air 11/09/24 18:45 Temperature 98.5 F 11/09/24 19:14 Pulse Rate 67 11/09/24 19:14 Respiratory Rate 20 11/09/24 19:14 Blood Pressure 165/85 H 11/09/24 19:14 Pulse Oximetry 100 11/09/24 19:14 Oxygen Delivery Method Room Air 11/09/24 19:14 Medications Administered Medications: Discontinued Medications Generic Name Dose Route Start Last Admin Trade Name Jesúsq PRN Reason Stop Dose Admin Docusate Sodium/Benzocaine 5 ml 11/09/24 19:01 11/09/24 19:10 Docusate Sodium/Benzocaine 5 Ml Enema CO 11/09/24 19:02 5 ml ONCE ONE Administration Oxycodone HCl 5 mg 11/09/24 19:01 11/09/24 19:09 Oxycodone 5 Mg Tablet PO 11/09/24 19:02 5 mg ONCE ONE Administration MDM - Abdominal Pain MDM Narrative Medical decision making narrative: Patient is a 54-year-old gentleman presents here with abdominal pain, not getting a feeling that this is surgical, given his scaphoid abdomen, and lack of any signs of obstruction. Headache is more likely constipation he is not eating a lot so he likely will not have a lot of stools this is exactly opposite of when he was here last that he was having too many stools, and placed on medication for his C diff. he has not had any fevers or chills, we will do some labs I will get an x-ray I will give him is normal oxycodone dosage. And we will go from there. Medical Records Attestation: I reviewed the patient's medical records. Lab Data Labs: Lab Results 11/09/24 Range/Units 19:01 WBC 7.21 (4.50-11.00) K/uL RBC 3.78 L (4.30-5.90) m/uL Hgb 12.5 L (13.5-17.5) gm/dL Hct 38.8 (37.0-53.0) % MCV 103 H (80-100) fL MCH 33 (26-34) pg MCHC 32 (32-36) gm/dL RDW Coeff of Mike 15.6 H (11.5-15.5) % Plt Count 152 (140-440) K/uL Neut % (Auto) 73.6 H (42.0-72.0) % Lymph % (Auto) 17.1 L (20-44) % Wirt % (Auto) 6.4 (0.0-11.0) % Eos % (Auto) 2.4 (0.0-7.0) % Baso % (Auto) 0.4 (0.0-3.0) % Neut # (Auto) 5.30 (1.7-7.0) K/uL Lymph # (Auto) 1.20 (0.90-2.90) K/uL Wirt # (Auto) 0.50 (0.00-0.90) K/UL Eos # (Auto) 0.17 (0.00-0.50) K/uL Baso # (Auto) 0.03 (0.00-0.30) K/uL Abs Immat Gran (auto) 0.01 (0.00-0.30) K/uL Imm/Tot Granulo (auto) 0.1 % Lactate 0.9 (0.5-1.9) mmol/L Discharge Plan Discharge Clinical Impression: Abdominal pain, Constipation, Chronic back pain Patient Disposition: Home, Self-Care Condition: Improved Instructions: Abdominal Pain (ED) Additional Instructions: Home rest fluids, follow-up as needed, I do believe a lot a or constipation is likely secondary to her narcotic use, may want to take some stool softeners such as senna twice daily help this. Prescriptions: No Action atorvastatin 40 mg tablet 40 mg PO DAILY Patient Comments: TAKE ONE TABLET BY MOUTH AT BEDTIME sennosides [Suyapa-ulysses] 8.6 mg tablet 8.6 mg PO DAILY PRN Patient Comments: TAKE 1 TABLET (8.6 MG) BY MOUTH 2 TIMES DAILY. lidocaine-prilocaine 2.5-2.5 % cream 1 applic topical DAILY Patient Comments: APPLY SMALL AMOUNT TO ACCESS SITE (AVF) 1 TO 2 HOURS BEFORE DIALYSIS. COVER WITH OCCLUSIVE DRESSING (SARAN WRAP) amlodipine 10 mg tablet 10 mg PO DAILY Patient Comments: TAKE ONE TABLET BY MOUTH ONCE DAILY metoprolol tartrate 25 mg tablet 25 mg PO Q12H Patient Comments: TAKE ONE TABLET BY MOUTH TWICE A DAY. ON DIALYSIS DAYS TAKE THIS AFTERWARDS sevelamer carbonate 800 mg tablet 2,400 mg PO TID Patient Comments: TAKE 4 TABLETS BY MOUTH THREE TIMES DAILY WITH MEALS AND 3 TABLETS TWICE DAILY WITH SNACKS diclofenac sodium 1 % gel 2 g TOPICAL Patient Comments: APPLY 2 G TOPICALLY TO AFFECTED AREA(S) 4 TIMES DAILY. ferric citrate [Auryxia] 210 mg iron tablet 2 tab PO TID Patient Comments: TAKE 2 TABLETS BY MOUTH THREE TIMES A DAY WITH MEALS AND 1 TABLET TWICE A DAY WITH SNACKS. SWALLOW WHOLE, DO NOT CHEW OR CRUSH MEDICATION RenaPlex-D 800 mcg-12.5 mg -2,000 unit tablet 1 tab PO DAILY Patient Comments: TAKE 1 TABLET BY MOUTH EVERY DAY WITH THE EVENING MEAL fidaxomicin 200 mg tablet 200 mg PO BID 10 Days Qty: 20 0RF Rx Instructions: May need PA. His C Diff is resistant to Flagyl and Vanco. sucralfate [Carafate] 100 mg/mL suspension 1 g PO BID tizanidine 2 mg tablet 2 mg PO QPM furosemide 40 mg tablet 80 mg PO ondansetron HCl 4 mg tablet 4 mg PO Q8H PRN aspirin 81 mg tablet,delayed release (DR/EC) PO Dificid 200 mg tablet 200 mg PO BID 10 Days Qty: 20 0RF metoclopramide HCl 5 mg tablet 2.5 mg PO BID PRN (Reason: abdominal pain) dicyclomine 20 mg tablet 20 mg PO escitalopram oxalate 5 mg tablet 5 mg PO QAM oxycodone 10 mg tablet 15 mg PO QID nortriptyline 10 mg capsule PO Follow Up/Referrals: Rosamaria Garcia, MARIANNA [Primary Care Provider, [facility]] Stand Alone Forms: [facility] [employer] Info Instructions
[2024-11-09 19:14] VITALS: BP 165/85; PULSE 67; RESP 20; TEMP 36.9; O2SAT 100
[2024-11-09 19:25] LABS: Hematocrit 38.8 % (37.0-53.0); Hemoglobin* 12.5 gm/dL (13.5-17.5); Immature Granulocytes Abs Auto 0.01 K/uL (0.00-0.30); Immature Granulocytes Pct Auto 0.1 %; Mean Corpuscular HGB Conc 32 gm/dL (32-36); Mean Corpuscular Hemoglobin 33 pg (26-34); Mean Corpuscular Volume 103 fL (80-100); RDW Coefficient of Variation % 15.6 % (11.5-15.5); Red Blood Count 3.78 m/uL (4.30-5.90); White Blood Count* 7.21 K/uL (4.50-11.00)
[2024-11-09 19:42] LABS: Lymphocytes Absolute Auto 1.20 K/uL (0.90-2.90); Slide Review Reflex No
[2024-11-09 20:34] VITALS: BP 158/85; PULSE 64; RESP 20; TEMP 36.9; O2SAT 100
[2024-11-09 20:35] VITALS: BP 158/85; PULSE 64; RESP 20; TEMP 36.9
== END 2024-11-09 20:35 | disposition home or self-care (01) ==
PROVIDERS: Emergency Provider Family Medicine; PCP Physician Assistant
DX: R10.9 Unspecified abdominal pain (principal); K59.00 Constipation, unspecified; M54.9 Dorsalgia, unspecified
CPT/HCPCS: 36415; 74019; 80048; 83605; 85025; 94761; 99284; A9270

== ENCOUNTER 2024-12-13 02:17 | Outpatient (CLI) | payer MEDICARE, OTHER, SELFPAY | END 2024-12-13 02:18 | disposition home or self-care (01) | PROVIDERS: PCP Physician Assistant; Visit Provider Family Medicine | DX: R10.9 Unspecified abdominal pain (principal) | CPT/HCPCS: A0425; A0433 ==

== ENCOUNTER 2024-12-13 02:52 | Emergency (ER) | payer MEDICARE, OTHER, SELFPAY ==
[2024-12-13 02:58] VITALS: BP 150/87; PULSE 80; RESP 18; TEMP 36.7; O2SAT 98; BMI 21.0
--- NOTE | 2024-12-13 03:16 | PC.NURSE ---
Assume care of this pt. Alert and oriented. States pt is much better. He went tp HD yesterday as he goes to [place] Tuesday, tue and tuesday.
--- NOTE | 2024-12-13 03:23 | CRLHL7_ITS ---
For Patients: As a result of the Century Cures Act, medical imaging exams and procedure reports are released immediately into your electronic medical record. You may view this report before your referring provider. If you have questions, please contact your health care provider. INDICATION: Right upper quadrant pain, history of C diff, dialysis patient. TECHNIQUE: CT abdomen and pelvis without contrast. COMPARISON: 08/23/2024. FINDINGS: Lower chest: Coronary artery calcifications. Small hiatal hernia with fluid in the distal esophagus. Liver: Normal in size and attenuation. No suspicious masses. Gallbladder and bile ducts: Cholecystectomy. No biliary dilatation. Pancreas: Unremarkable. No mass or inflammation. Spleen: Normal in size. Splenule. No masses. Adrenal glands: Normal in size. No nodules. Kidneys: Atrophic kidneys. Cysts and subcentimeter hypodense lesions too small to characterize, possibly cysts. No suspicious masses, stones, or hydronephrosis. GI tract: Fluid distention of the stomach. Normal in caliber. No sign of mass or inflammation. Normal appendix. Vasculature: Dense atherosclerotic calcifications of the aorta and branch vessels. Abdominal aorta is normal in caliber. Lymph nodes: No lymphadenopathy. Peritoneum/Abdominal Wall: Unremarkable. No sign of mass or infiltration. No free air or significant free fluid. Pelvis: Bladder is decompressed. Prostate is unremarkable. Bones: No acute lesions. Multilevel degenerative changes. IMPRESSION: No definite acute findings to explain the patient`s symptoms. Please note that all CT scans at this facility use dose modulation, iterative reconstruction, and/or weight-based dosing when appropriate to reduce radiation dose to as low as reasonably achievable. Dictated by Arthur Santos MD @ 12/13/2024 3:59:37 AM (Electronically Signed)
[2024-12-13 03:30] LABS: Lactate Sepsis w/Reflex* 0.8 mmol/L (0.5-1.9)
[2024-12-13 03:32] LABS: Hematocrit 41.8 % (37.0-53.0); Hemoglobin* 13.5 gm/dL (13.5-17.5); Immature Granulocytes Abs Auto 0.02 K/uL (0.00-0.30); Immature Granulocytes Pct Auto 0.2 %; Mean Corpuscular HGB Conc 32 gm/dL (32-36); Mean Corpuscular Hemoglobin 33 pg (26-34); Mean Corpuscular Volume 102 fL (80-100); RDW Coefficient of Variation % 14.3 % (11.5-15.5); Red Blood Count 4.12 m/uL (4.30-5.90); White Blood Count* 8.32 K/uL (4.50-11.00)
[2024-12-13 03:33] LABS: Lymphocytes Absolute Auto 0.70 K/uL (0.90-2.90); Slide Review Reflex No
--- NOTE | 2024-12-13 03:33 | ED.GENADULT ---
HPI - General Adult General Chief complaint: Abdominal Pain Stated complaint: RUQ pain Time Seen by Provider: 12/13/24 03:07 History of Present Illness HPI narrative: 54-year-old male presents to the emergency department for evaluation of abdominal pain, ongoing issues worse today but has been present for several weeks. Has been battling C diff for the past couple of months and most recently was treated with Dificid, reports that he completed treatment last week. No trauma or injury. Prior note from last month reviewed. Does have a history of spinal stenosis and comes in frequently with back pain issues. Reports that he has not skipped dialysis. EMS administered 150 mcg of fentanyl and 4 of Zofran. Patient denies bloody stools. Does have blood-tinged vomit which is an ongoing issue for him and is not new. Continues to have frequent diarrhea. Does have a prior history of colon cancer. Is scheduled for colonoscopy and endoscopy in about a month. No fever. No new injury or trauma. Past medical history is fairly extensive. He is on hemodialysis for chronic kidney disease has type 2 diabetes, GERD, prior history of colon cancer. He also does not have a gallbladder from prior cholecystectomy. Allergies to lisinopril penicillin and hydromorphone which cause nausea and vomiting. He has chronic back pain. Lots of medications reviewed, do sound consistent with what he reports. Is not currently on the Dificid. Nonsmoker. ROS is notable for the GI symptoms as described, otherwise denies times 12 systems besides his known chronic issues. Related Data Home Medications ?Medication ?Instructions ?Recorded ?Confirmed amlodipine 10 mg tablet 10 mg PO DAILY 12/26/21 12/13/24 atorvastatin 40 mg tablet 40 mg PO DAILY 12/26/21 12/13/24 diclofenac sodium 1 % topical gel 2 g topical 12/26/21 ferric citrate 210 mg iron tablet 2 tab PO TID 12/26/21 12/13/24 (Auryxia) lidocaine-prilocaine 2.5 %-2.5 % 1 applic topical DAILY 12/26/21 12/13/24 topical cream metoprolol tartrate 25 mg tablet 25 mg PO Q12H 12/26/21 12/13/24 sennosides 8.6 mg tablet (Suyapa-ulysses) 8.6 mg PO DAILY PRN 12/26/21 12/13/24 sevelamer carbonate 800 mg tablet 2,400 mg PO TID 12/26/21 12/13/24 vit B,C-folic ac 800 mcg-zinc 12.5 1 tab PO DAILY 12/26/21 12/13/24 mg-selen-D3 2,000 unit-vit E tablet (RenaPlex-D) sucralfate 100 mg/mL oral 1 g PO BID 02/11/23 12/13/24 suspension (Carafate) tizanidine 2 mg tablet 2 mg PO QPM 02/11/23 12/13/24 dicyclomine 20 mg tablet 20 mg PO cramps 08/23/24 escitalopram oxalate 5 mg tablet 5 mg PO QAM 08/23/24 12/13/24 metoclopramide HCl 5 mg tablet 2.5 mg PO BID PRN abdominal pain 08/23/24 12/13/24 nortriptyline 10 mg capsule mg PO 08/23/24 oxycodone 10 mg tablet 15 mg PO QID 08/23/24 12/13/24 aspirin 81 mg tablet,delayed mg PO 09/27/24 release furosemide 40 mg tablet 80 mg PO 09/27/24 ondansetron HCl 4 mg tablet 4 mg PO Q8H PRN 09/27/24 12/13/24 Previous Rx's ?Medication ?Instructions ?Recorded fidaxomicin 200 mg tablet 200 mg PO BID 10 days #20 tabs 10/21/22 fidaxomicin 200 mg tablet (Dificid) 200 mg PO BID 10 days #20 tabs 10/31/24 Allergies Allergy/AdvReac Type Severity Reaction Status Date / Time lisinopril Allergy Severe angioedema Verified 12/13/24 03:02 Penicillins Allergy Unknown Verified 12/13/24 03:02 hydromorphone (From Dilaudid) AdvReac nausea/vomi Verified 12/13/24 03:02 ting [facility] Medical History Type 2 diabetes mellitus, without long-term current use of insulin ?E11.9 - Type 2 diabetes mellitus without complications (ICD-10) Hypertension ?I10 - Essential (primary) hypertension (ICD-10) Malignant neoplasm of sigmoid colon ?C18.7 - Malignant neoplasm of sigmoid colon (ICD-10) Spondylosis of lumbar region without myelopathy or radiculopathy ?M47.816 - Spondylosis without myelopathy or radiculopathy, lumbar region (ICD-10) Bilateral hip pain ?M25.551 - Pain in right hip (ICD-10) ?M25.552 - Pain in left hip (ICD-10) Spinal stenosis, lumbar region without neurogenic claudication ?M48.061 - Spinal stenosis, lumbar region without neurogenic claudication (ICD-10) Lumbar foraminal stenosis ?M48.061 - Spinal stenosis, lumbar region without neurogenic claudication (ICD-10) Chronic abdominal pain ?R10.9 - Unspecified abdominal pain (ICD-10) ?G89.29 - Other chronic pain (ICD-10) Chronic pain of both shoulders ?M25.511 - Pain in right shoulder (ICD-10) ?M25.512 - Pain in left shoulder (ICD-10) ?G89.29 - Other chronic pain (ICD-10) Peripheral polyneuropathy ?G62.9 - Polyneuropathy, unspecified (ICD-10) Chronic thoracic back pain ?M54.6 - Pain in thoracic spine (ICD-10) ?G89.29 - Other chronic pain (ICD-10) GERD (gastroesophageal reflux disease) ?K21.9 - Gastro-esophageal reflux disease without esophagitis (ICD-10) Chronic constipation ?K59.09 - Other constipation (ICD-10) Hematemesis ?K92.0 - Hematemesis (ICD-10) Anxiety and depression ?F41.9 - Anxiety disorder, unspecified (ICD-10) ?F32.A - Depression, unspecified (ICD-10) ESRD on hemodialysis ?N18.6 - End stage renal disease (ICD-10) ?Z99.2 - Dependence on renal dialysis (ICD-10) Secondary hyperparathyroidism (of renal origin) ?N25.81 - Secondary hyperparathyroidism of renal origin (ICD-10) Surgical History History of colectomy ?Z90.49 - Acquired absence of other specified parts of digestive tract (ICD-10) History of cholecystectomy ?Z90.49 - Acquired absence of other specified parts of digestive tract (ICD-10) Social History Smoking Status: Former smoker Do you use any of these nicotine containing products: None Second hand tobacco smoke exposure: No How often do you have a drink containing alcohol: never How often do you have six or more drinks on one occasion: Never AUDIT-C Alcohol total score: 0 Non-prescribed substance use: marijuana (any form) service: No Exam Const: Vital Signs, click to edit/add: Vital Signs - 24 hr 12/13/24 02:58 12/13/24 04:27 Temperature 98.0 F Pulse Rate [Right Pulse Oximeter] 80 Respiratory Rate 18 Blood Pressure [Le ft Upper Arm] 150/87 H Pulse Oximetry 98 98 Oxygen Delivery Me thod Room Air Documenting provider has reviewed patient's vital signs: yes Common normals: no apparent distress and alert Other: Awake, alert, distress due to pain but appears nontoxic today. Good historian. Rosangela. HENMT: Common normals: normocephalic, moist oral mucous membranes and oropharynx normal Head and scalp: normocephalic Face and sinus: normal facial exam Eye: Common normals: conjunctivae normal General eye: normal appearance of both eyes Conjunctiva: conjunctiva(e) normal Neck & C-Spine: Common normals: full ROM and no lymphadenopathy Resp: Common normals: normal respiratory effort, no use of accessory muscles and clear to auscultation bilaterally Effort & inspection: able to speak in complete sentences Auscultation: clear to auscultation bilaterally Cardio: Common normals: regular rate, regular rhythm, S1 normal heart sound, S2 normal heart sound and no murmurs Rate: regular rate Rhythm: regular rhythm Heart sounds: S1 normal and S2 normal GI: Common normals: Normal to inspection, nondistended, normoactive bowel sounds present, soft to palpation and no hepatosplenomegaly Palpation: soft and no hepatosplenomegaly Other: Diffusely tender but does localized in the right upper quadrant a little bit. There is no rebound tenderness or guarding. No obvious mass. Surgical scarring is consistent with reported history. Extremity: Common normals: normal to inspection, normal capillary refill and no pedal edema Neuro: Common normals: moves all extremities and no focal motor deficits Sensorium/orientation: alert Speech: speech normal Psych: Appearance: grossly normal Attitude: engaged Insight: insight good Judgement: judgment good Skin: Common normals: no rashes or lesions noted General skin exam: no rashes or lesions noted Course Course ED Course: 54-year-old male with right upper quadrant abdominal pain history of cholecystectomy but also history of colon cancer. Suspicious for recurrent C diff. Counseled patient unfortunately those infections can be very difficult to treat even with proper antibiotic choice. Will obtain CT of the abdomen and pelvis to look for complications, perforation or inflammation. Unfortunately week should do it with contrast due to the fact that his potassium levels have been running extra high and he is not scheduled for dialysis today. Will obtain typical intra-abdominal labs and will give 10 of p.o. oxycodone to help bridge pain control once all of that IV fentanyl wears off. Will await findings. C diff sample ordered as well Reevaluation(s) Time of Reevaluation #1: 05:00 Reevaluation #1: Patient has been in the ED for over 2 hours and has not been able to produce a stool sample to test for C diff. He is sleeping in the room when I go back to check on him. I arouse him to let him know that I really do need a C diff sample to complete his workup. The remainder of his labs look really good. His inflammatory markers are negative his white count is negative now granted when he had C diff in the past, he has had normal labs but the CT does not show any significant inflammation. He is obviously not having vomiting or diarrhea for us. He is comfortable enough that he is able to sleep. I let patient know that I do not see any indications for hospitalization or further treatment. I do recommend that his primary care provider order another C diff study as a follow-up but if I send him home with a kit, the results will not get looked at for a few weeks and this could be potentially dangerous for him. Advised on use of Tylenol, heating pads and Imodium if needed. Alarm symptoms were reviewed and written that would warrant ED evaluation. Keep his typical medications and hemodialysis schedule. Does have a history of chronic abdominal pain and multiple prior workups in the past as well. Vital Signs Vital signs: Initial Vital Signs Temperature 98.0 F 12/13/24 02:58 Temperature Source Temporal Artery Scan 12/13/24 02:58 Pulse Rate 80 12/13/24 02:58 Respiratory Rate 18 12/13/24 02:58 Blood Pressure 150/87 H 12/13/24 02:58 Blood Pressure Mean 108 H 12/13/24 02:58 Blood Pressure Position Supine 12/13/24 02:58 Pulse Oximetry 98 12/13/24 02:58 Oxygen Delivery Method Room Air 12/13/24 02:58 Vital Signs Temperature 98.0 F 12/13/24 02:58 Pulse Rate 80 12/13/24 02:58 Respiratory Rate 18 12/13/24 02:58 Blood Pressure 150/87 H 12/13/24 02:58 Pulse Oximetry 98 12/13/24 02:58 Oxygen Delivery Method Room Air 12/13/24 02:58 Temperature 98.0 F 12/13/24 02:58 Pulse Rate 80 12/13/24 02:58 Respiratory Rate 18 12/13/24 02:58 Blood Pressure 150/87 H 12/13/24 02:58 Pulse Oximetry 98 12/13/24 04:27 Oxygen Delivery Method Room Air 12/13/24 02:58 Medications Administered Medications: Discontinued Medications Generic Name Dose Route Start Last Admin Trade Name Freq PRN Reason Stop Dose Admin Oxycodone HCl 10 mg 12/13/24 03:23 12/13/24 03:34 Oxycodone 5 Mg Tablet PO 12/13/24 03:24 10 mg ONCE ONE Administration Medical Decision Making Lab Data Lab results reviewed: Yes I reviewed the patient's lab results Lab results narrative: Labs reassuring. Negative CRP, negative white count, liver enzymes are stable for patient. Troponin normal. Renal function stable for patient, known dialysis patient potassium looks okay. Labs: Lab Results 12/13/24 12/13/24 Range/Units 03:25 03:35 WBC 8.32 (4.50-11.00) K/uL RBC 4.12 L (4.30-5.90) m/uL Hgb 13.5 (13.5-17.5) gm/dL Hct 41.8 (37.0-53.0) % MCV 102 H (80-100) fL MCH 33 (26-34) pg MCHC 32 (32-36) gm/dL RDW Coeff of Mike 14.3 (11.5-15.5) % Plt Count 171 (140-440) K/uL Neut % (Auto) 85.3 H (42.0-72.0) % Lymph % (Auto) 8.1 L (20-44) % [place] % (Auto) 4.9 (0.0-11.0) % Eos % (Auto) 1.0 (0.0-7.0) % Baso % (Auto) 0.5 (0.0-3.0) % Neut # (Auto) 7.10 H (1.7-7.0) K/uL Lymph # (Auto) 0.70 L (0.90-2.90) K/uL [place] # (Auto) 0.40 (0.00-0.90) K/UL Eos # (Auto) 0.08 (0.00-0.50) K/uL Baso # (Auto) 0.04 (0.00-0.30) K/uL Abs Immat Gran (auto) 0.02 (0.00-0.30) K/uL Imm/Tot Granulo (auto) 0.2 % Sodium 134 L (135-149) mmol/L Potassium 5.0 (3.6-5.1) mmol/L Chloride 100 (96-114) mmol/L Carbon Dioxide 26 (20-32) mmol/L Anion Gap 8 (7-15) mEq/L BUN 23 (7-30) mg/dL Creatinine 7.4 H (0.5-1.5) mg/dL Estimated Creat Clear 9.33 Estimated GFR 8 ml/min Glucose 155 H (60-115) mg/dL Lactate 0.8 (0.5-1.9) mmol/L Calcium 10.2 (8.4-10.6) mg/dL Total Bilirubin 0.5 (0.1-1.5) mg/dL AST 53 H (12-35) U/L ALT 52 H (4-50) U/L Alkaline Phosphatase 91 (40-150) U/L C-Reactive Protein < 0.5 L (0.5-1.0) mg/dL Total Protein 7.3 (6.0-8.3) g/dL Albumin 4.4 (3.3-5.0) g/dL Lipase 126 (23-300) U/L POC Troponin I 0.00 L (0.01-0.04) ng/ml Imaging Data CT scan - abdomen: Attestation: I have reviewed the pertinent imaging results. My impression: A little suboptimal because we could not use contrast but there are no obvious signs of intestinal perforation, severe inflammation, obstruction or other GI abnormality. He is post cholecystectomy and I do not appreciate any pancreatitis or other acute abnormality Radiologist's impression: FINDINGS: Lower chest: Coronary artery calcifications. Small hiatal hernia with fluid in the distal esophagus. Liver: Normal in size and attenuation. No suspicious masses. Gallbladder and bile ducts: Cholecystectomy. No biliary dilatation. Pancreas: Unremarkable. No mass or inflammation. Spleen: Normal in size. Splenule. No masses. Adrenal glands: Normal in size. No nodules. Kidneys: Atrophic kidneys. Cysts and subcentimeter hypodense lesions too small to characterize, possibly cysts. No suspicious masses, stones, or hydronephrosis. GI tract: Fluid distention of the stomach. Normal in caliber. No sign of mass or inflammation. Normal appendix. Vasculature: Dense atherosclerotic calcifications of the aorta and branch vessels. Abdominal aorta is normal in caliber. Lymph nodes: No lymphadenopathy. Peritoneum/Abdominal Wall: Unremarkable. No sign of mass or infiltration. No free air or significant free fluid. Pelvis: Bladder is decompressed. Prostate is unremarkable. Bones: No acute lesions. Multilevel degenerative changes. IMPRESSION: No definite acute findings to explain the patient`s symptoms. Please note that all CT scans at this facility use dose modulation, iterative reconstruction, and/or weight-based dosing when appropriate to reduce radiation dose to as low as reasonably achievable. Dictated by Arthur Santos MD @ 12/13/2024 3:59:37 AM Discharge Plan Discharge Clinical Impression: Chronic abdominal pain Patient Disposition: Home, Self-Care Condition: Stable Instructions: Chronic Abdominal Pain (DC) Additional Instructions: As we discussed, your labs and CT really do look good today. I am of course concerned that you could still have a C diff infection. You were not able to provide a sample today. The labs do not suggest any type of severe C diff that would warrant hospitalization or emergent type treatment. Please have your primary care team order an outpatient test to ensure that you have cleared your C diff that you were recently treated for. This does seem more like a flare up of your chronic abdominal pain. I am glad the medicine seem to help as you are able to sleep here in the emergency department. I recommend that you use Tylenol 1000 mg every 6 hours, heating pads. You may try some Imodium for diarrhea if the C diff test is negative. You have been prescribed chronic pain medicines in the past and if your primary care doctor thinks it is appropriate for you to restart those, they are welcome to do so but we will not be treating chronic pain here in the emergency room. Please return if you have significant bloody stools, high fever, severe weakness or other symptoms of severe illness. Keep your dialysis appointment for Tuesday as scheduled. Activity Level: Activity as Tolerated Discharge Diet: Regular Prescriptions: No Action atorvastatin 40 mg tablet 40 mg PO DAILY Patient Comments: TAKE ONE TABLET BY MOUTH AT BEDTIME sennosides [Suyapa-ulysses] 8.6 mg tablet 8.6 mg PO DAILY PRN Patient Comments: TAKE 1 TABLET (8.6 MG) BY MOUTH 2 TIMES DAILY. lidocaine-prilocaine 2.5-2.5 % cream 1 applic topical DAILY Patient Comments: APPLY SMALL AMOUNT TO ACCESS SITE (AVF) 1 TO 2 HOURS BEFORE DIALYSIS. COVER WITH OCCLUSIVE DRESSING (SARAN WRAP) amlodipine 10 mg tablet 10 mg PO DAILY Patient Comments: TAKE ONE TABLET BY MOUTH ONCE DAILY metoprolol tartrate 25 mg tablet 25 mg PO Q12H Patient Comments: TAKE ONE TABLET BY MOUTH TWICE A DAY. ON DIALYSIS DAYS TAKE THIS AFTERWARDS sevelamer carbonate 800 mg tablet 2,400 mg PO TID Patient Comments: TAKE 4 TABLETS BY MOUTH THREE TIMES DAILY WITH MEALS AND 3 TABLETS TWICE DAILY WITH SNACKS diclofenac sodium 1 % gel 2 g TOPICAL Patient Comments: APPLY 2 G TOPICALLY TO AFFECTED AREA(S) 4 TIMES DAILY. ferric citrate [Auryxia] 210 mg iron tablet 2 tab PO TID Patient Comments: TAKE 2 TABLETS BY MOUTH THREE TIMES A DAY WITH MEALS AND 1 TABLET TWICE A DAY WITH SNACKS. SWALLOW WHOLE, DO NOT CHEW OR CRUSH MEDICATION RenaPlex-D 800 mcg-12.5 mg -2,000 unit tablet 1 tab PO DAILY Patient Comments: TAKE 1 TABLET BY MOUTH EVERY DAY WITH THE EVENING MEAL fidaxomicin 200 mg tablet 200 mg PO BID 10 Days Qty: 20 0RF Rx Instructions: May need PA. His C Diff is resistant to Flagyl and Vanco. sucralfate [Carafate] 100 mg/mL suspension 1 g PO BID tizanidine 2 mg tablet 2 mg PO QPM furosemide 40 mg tablet 80 mg PO ondansetron HCl 4 mg tablet 4 mg PO Q8H PRN aspirin 81 mg tablet,delayed release (DR/EC) PO fidaxomicin [Dificid] 200 mg tablet 200 mg PO BID 10 Days Qty: 20 0RF metoclopramide HCl 5 mg tablet 2.5 mg PO BID PRN (Reason: abdominal pain) dicyclomine 20 mg tablet 20 mg PO escitalopram oxalate 5 mg tablet 5 mg PO QAM oxycodone 10 mg tablet 15 mg PO QID nortriptyline 10 mg capsule PO Follow Up/Referrals: Rosamaria Garcia PA-C [Primary Care Provider, Family Practice] Stand Alone Forms: [facility] Info Instructions
--- NOTE | 2024-12-13 03:34 | PC.NURSE ---
Pt able to stand and tx self from [facility] to w/c for CT.
--- NOTE | 2024-12-13 03:40 | PC.NURSE ---
Return from CT. Pt states he has not anything to eat today because of the pain. Pt encouraged pt to eat saltine crackers provided.
[2024-12-13 03:45] LABS: Troponin, Point-of-Care* 0.00 ng/ml (0.01-0.04)
[2024-12-13 03:49] LABS: Albumin* 4.4 g/dL (3.3-5.0); Chloride* 100 mmol/L (96-114); Potassium* 5.0 mmol/L (3.6-5.1); Sodium* 134 mmol/L (135-149)
[2024-12-13 03:51] LABS: Blood Urea Nitrogen* 23 mg/dL (7-30); Creatinine* 7.4 mg/dL (0.5-1.5); Est. Creatinine Clearance* 9.33; Estimated Glomerular Filt Rate 8 ml/min
[2024-12-13 03:52] LABS: Alanine Aminotransferase* 52 U/L (4-50); Alkaline Phosphatase* 91 U/L (40-150); Anion Gap 8 mEq/L (7-15); Aspartate Amino Transferase* 53 U/L (12-35); Bilirubin Total* 0.5 mg/dL (0.1-1.5); Carbon Dioxide* 26 mmol/L (20-32); Total Protein* 7.3 g/dL (6.0-8.3)
[2024-12-13 03:53] LABS: Calcium* 10.2 mg/dL (8.4-10.6); Glucose* 155 mg/dL (60-115)
[2024-12-13 04:27] VITALS: O2SAT 98
--- NOTE | 2024-12-13 05:12 | PC.NURSE ---
pt ambulate to for stool sample. Unsuccessful-Md aware
--- NOTE | 2024-12-13 05:32 | PC.NURSE ---
soup and crackers provided. Encourage pt to sit up on side of bed to eat. Pt very emotional.
--- NOTE | 2024-12-13 05:43 | PC.NURSE ---
pt ate a little bit of broth and some sprite. IV d/c. will call taxi for him. He lives near [place]
--- NOTE | 2024-12-13 05:50 | PC.NURSE ---
Pt able to dress self without diff. Cab voucher supplied- otherwise he said he would walk home. Ill have to call my doctor tomorrow for pain meds-discussed some addiction issues- All care explained.
== END 2024-12-13 06:21 | disposition home or self-care (01) ==
PROVIDERS: Emergency Provider Family Medicine; PCP Physician Assistant
DX: M54.9 Dorsalgia, unspecified (principal); G89.29 Other chronic pain; R10.11 Right upper quadrant pain; E11.22 Type 2 diabetes mellitus with diabetic chronic kidney disease; N18.9 Chronic kidney disease, unspecified; K21.9 Gastro-esophageal reflux disease without esophagitis; Z79.899 Other long term (current) drug therapy
CPT/HCPCS: 36415; 74176; 80053; 83605; 83690; 84484; 85025; 86140; 87493; 94761; 99283; 99284; A9270